=== PATIENT | male | born 1955 | race African-American/Black ===

== ENCOUNTER 2016-09-03 10:57 | Inpatient (IN) | payer OTHER ==
[2016-09-03 11:20] VITALS: BMI 28.1
--- NOTE | 2016-09-03 12:22 | HP ---
CIWA Score - CIWA Score Nausea/Vomitin Muscle Tremors: 3 Anxiety: 4-Mod. Anxious/Guarded Agitation: 2 Paroxysmal Sweats: 3 Orientation: 0-Oriented Tacttile Disturbances: 2-Mild Itch/Numbness/Burn Auditory Disturbances: 0-None Visual Disturbances: 0-None Headache: 0-None Present CIWA-Ar Total Score: 17 Admission ROS S - HPI Chief Complaint: "I am here to get cleaned up." Pt. is here to Detox from Alcohol and Cocaine. Allergies/Adverse Reactions: Allergies Allergy/AdvReac Type Severity Reaction Status Date / Time enalapril [Enalapril] Allergy Swelling Verified 09/03/16 11:36 haloperidol [From Haldol] Allergy Verified 09/03/16 11:38 haloperidol lactate Allergy Verified 09/03/16 11:38 [From Haldol] levofloxacin [From Levaquin] Allergy Hives Verified 09/03/16 11:38 ,Enalapril, Haldol, Levaquin Allergy Severe Hives Uncoded 05/04/15 16:39 History of Present Illness: Pt. is a 61 YO male here to Detox from Alcohol. Pt. has had several Detox and Rehab admissions at [facility] in the past. Longest Period of sobriety: approx. 2 years (1989- 1991); 15 months (2011 - 2012). Exam Limitations: No Limitations - Ebola screening Have you traveled outside of the country in the last 21 days: No Have you had contact with anyone from an Ebola affected area: No Have you been sick,other than usual withdrawal symptoms: No Do you have a fever: No - Review of Systems Constitutional: Diaphoresis, Loss of Appetite, Malaise, Changes in sleep, Unintentional Wgt. Loss (Lost approx. 15 lbs. over last 2 months.), Other ( Patient ambulates with assistance of a walker.) EENT: reports: No Symptoms Reported Respiratory: reports: No Symptoms reported Cardiac: reports: No Symptoms Reported GI: reports: Diarrhea, Nausea, Poor Appetite, Indigestion, Abdominal cramping : reports: No Symptoms Reported Musculoskeletal: reports: Back Pain (Lumbosacral area.), Neck Pain Integumentary: reports: No Symptoms Reported Neuro: reports: Tremors Endocrine: reports: No Symptoms Reported Hematology: reports: Anemia (Uncertain which type.) Psychiatric: reports: Judgement Intact, Mood/Affect Appropiate, Orientated x3, Anxious, Depressed Other Systems: Reviewed and Negative Patient History - Patient Medical History Hx Anemia: Yes (Uncertain about type.) Hx Asthma: No Hx Chronic Obstructive Pulmonary Disease (COPD): No Hx Cancer: No Hx Cardiac Disorders: No Hx Congestive Heart Failure: No Hx Hypertension: Yes (ON MEDS.) Hx Hypercholesterolemia: Yes (ON MEDS) Hx Pacemaker: No HX Cerebrovascular Accident: No Hx Seizures: No Hx Dementia: No Hx Diabetes: No Hx Gastrointestinal Disorders: No Hx Liver Disease: No Hx Genitourinary Disorders: No Hx Sexually Transmitted Disorders: No Hx Renal Disease (ESRD): No Hx Thyroid Disease: No Hx Human Immunodeficiency Virus (HIV): No (Last Tested: approx. 2 weeks ago: NEGATIVE.) Hx Hepatitis C: No (Last Tested: approx. 2 weeks ago: NEGATIVE.) Hx Depression: Yes (On med.) Hx Suicide Attempt: No (PATIENT DENIES CURRENT SI / HI.) Hx Bipolar Disorder: No Hx Schizophrenia: No Other Medical History: SPINAL STENOSIS: Diagnosed 03/2016. - Patient Surgical History Past Surgical History: Yes Hx Neurologic Surgery: No Hx Cataract Extraction: No Hx Cardiac Surgery: No Hx Lung Surgery: No Hx Breast Surgery: No Hx Breast Biopsy: No Hx Abdominal Surgery: No Hx Appendectomy: No Hx Cholecystectomy: No Hx Genitourinary Surgery: No Hx Section: No Hx Orthopedic Surgery: Yes (right hip replacement in 04/2003 at [facility] for avascular necrosis) Other Surgical History: Surgery to repair Right Fibula fracture: 1996. Anesthesia Reaction: No - PPD History Previous Implant?: No Documented Results: Positive w/o proof (Completed Full Course of Treatment: 2004.) Implanted On Prior [facility] Admission?: No PPD to be Administered?: No - Reproductive History Patient is a Female of Child Bearing Age (11 -55 yrs old): No (PATIENT IS MALE.) - Smoking Cessation Smoking history: Current every day smoker Have you smoked in the past 12 months: Yes Aproximately how many cigarettes per day: 5 Cigars Per Day: 0 Hx Chewing Tobacco Use: No Initiated information on smoking cessation: Yes 'Breaking Loose' booklet given: 09/03/16 (GIVEN ON UNIT.) - Substance & Tx. History Hx Alcohol Use: Yes Hx Substance Use: Yes Substance Use Type: Alcohol, Cocaine Hx Substance Use Treatment: Yes (Previous Detox and Rehab admissions at [facility].) - Substances Abused Alcohol Route: Oral Frequency: Daily Amount used: 1 pint /day Age of first use: 15 Date of Last Use: 08/31/16 Cocaine Route: sniff Frequency: 3-6 times per week Amount used: $50 Age of first use: 20 Date of Last Use: 08/31/16 Family Disease History - Family Disease History Family Disease History: Heart Disease: Father Admission Physical Exam [facility] - Vital Signs Vital Signs: Vital Signs - 24 hr 09/03/16 11:18 Temperature 96.9 F L Pulse Rate 73 Respiratory 20 Rate Blood Pressure 138/73 - Physical General Appearance: Yes: No Apparent Distress, Nourished, Appropriately Dressed , Tremorous, Anxious, Other (Patient ambulating with assistance of a walker.) HEENTM: Yes: Hearing grossly Normal, Normocephalic, Normal Voice, WILLY, Pharynx Normal Respiratory: Yes: Chest Non-Tender, Lungs Clear, No Respiratory Distress, No Accessory Muscle Use Neck: Yes: No masses,lesions,Nodules, Supple, Trachea in good position Breast: Yes: Breast Exam Deferred Cardiology: Yes: Regular Rhythm, Regular Rate, S1, S2 Abdominal: Yes: Normal Bowel Sounds, Non Tender, Soft, Protuberent Genitourinary: Yes: Within Normal Limits Back: Yes: Decreased Range of Motion, Vertebral Tenderness Musculoskeletal: Yes: Gait Steady (Walker used to assist with ambulation.), Back pain, Joint Stiffness Extremities: Yes: Tremors Neurological: Yes: Fully Oriented, Alert, Normal Mood/Affect, Normal Response Integumentary: Yes: Normal Color, Dry, Warm Lymphatic: Yes: Within Normal Limits - Diagnostic (1) Hypercholesteremia Current Visit: Yes Status: Chronic (2) Nicotine dependence Current Visit: Yes Status: Chronic Qualifiers: Nicotine product type: cigarettes Substance use status: uncomplicated Qualified Code(s): F17.210 - Nicotine dependence, cigarettes, uncomplicated (3) Hypertension Current Visit: Yes Status: Chronic Qualifiers: Hypertension type: essential hypertension Qualified Code(s): I10 - Essential (primary) hypertension (4) Alcohol dependence with uncomplicated withdrawal Current Visit: Yes Status: Acute (5) Cocaine dependence, uncomplicated Current Visit: Yes Status: Acute (6) Spinal stenosis, lumbosacral region Current Visit: Yes Status: Chronic (7) History of depression Current Visit: Yes Status: Chronic (8) Walker as ambulation aid Current Visit: Yes Status: Chronic Cleared for Admission [facility] - Detox or Rehab [facility] Level of Care: Medically Managed Detox Regimen/Protocol: Librium [facility] Breath Alcohol Content Breath Alcohol Content: 0 Urine Drug Screen - Results Drug Screen Negative: No Urine Drug Screen Results: JESUS ALBERTO-Cocaine
[2016-09-03] MEDS ORDERED: P-EPHED 60MG/TRIPROLIDI 2.5MG TABLET PO PRN (12:59)
[2016-09-03] MEDS ORDERED: MAG HYDROX/AL HYDROX/SIMETH 30 ML UNIT-DOSE CUP PO PRN (12:59)
[2016-09-03] MEDS ORDERED: IBUPROFEN 400 MG TABLET (FP) PO PRN (12:59)
[2016-09-03] MEDS ORDERED: MENTHOL/PHENOL 1 EACH UD MM PRN (12:59)
[2016-09-03] MEDS ORDERED: guaiFENesin/D-METHORPHAN HB 10 ML UNIT-DOSE CUPS PO PRN (12:59)
[2016-09-03] MEDS ORDERED: MAGNESIUM HYDROX 2400MG/30ML ORAL SUSPENSION 30 ML CUP PO PRN (12:59)
[2016-09-03] MEDS ORDERED: diphenhydrAMINE HCL 50 MG CAPSULE PO PRN (12:59)
[2016-09-03] MEDS ORDERED: chlordiazePOXIDE HCL 25 MG CAPSULE PO PRN (12:59)
[2016-09-03] MEDS ORDERED: hydrOXYzine PAMOATE 50 MG CAPSULE (FP) PO PRN (12:59)
[2016-09-03] MEDS ORDERED: ACETAMINOPHEN 325 MG TABLET (FP) PO PRN (12:59)
[2016-09-03] MEDS ORDERED: MAGNESIUM CITRATE 300 ML BOTTLE PO PRN (12:59)
[2016-09-03] MEDS ORDERED: chlordiazePOXIDE HCL 25 MG CAPSULE PO ONE (12:59)
[2016-09-03] MEDS: amLODIPine BESYLATE 10 MG TABLET (FP) PO SCH (13:45)
[2016-09-03] MEDS: CYCLOBENZAPRINE HCL 10 MG TABLET (FP) PO PRN (13:45)
[2016-09-03] MEDS: ASPIRIN COATED 81 MG TABLET.EC PO SCH (13:45)
[2016-09-03] MEDS: LIDOCAINE 5% TOPICAL PATCH TP SCH (14:15)
[2016-09-03] MEDS: ATENOLOL 25 MG TABLET (FP) PO SCH (14:17)
[2016-09-03] MEDS: NICOTINE POLACRILEX 2 MG GUM BUC PRN ×2 (15:00→19:21)
[2016-09-03] MEDS: chlordiazePOXIDE HCL 25 MG CAPSULE PO SCH ×2 (17:55→22:10)
[2016-09-03 19:09] LABS: URINE APPEARANCE CLEAR; URINE BILIRUBIN NEGATIVE (NEGATIVE); URINE BLOOD NEGATIVE (NEGATIVE); URINE COLOR YELLOW; URINE GLUCOSE (UA) NEGATIVE (NEGATIVE); URINE KETONE NEGATIVE (NEGATIVE); URINE LEUK ESTERASE NEGATIVE (NEGATIVE); URINE NITRITE NEGATIVE (NEGATIVE); URINE PROTEIN NEGATIVE (NEGATIVE)
[2016-09-03] MEDS: ATORVASTATIN CA 10 MG TABLET (FP) PO SCH (22:10)
[2016-09-03] MEDS: THIAMINE HCL 100 MG TABLET (FP) PO SCH (22:10)
[2016-09-03] MEDS: LIDOCAINE PATCH REMOVAL MC SCH (22:11)
[2016-09-04] MEDS: chlordiazePOXIDE HCL 25 MG CAPSULE PO SCH ×4 (06:02→22:08)
--- NOTE | 2016-09-04 08:20 | CONSULT ---
[facility] Psychiatric Consult - Data Date of interview: 09/04/16 Admission source: [facility] Identifying data: This is 61 years old male ambulating with walker, with psychiatric hospitalization history, history pf Schizoaffective disorder intoxicated with: Alcohol, Cocaine and Nicotine Substance Abuse History: - Smoking Cessation. Smoking history: Current every day smoker. Have you smoked in the past 12 months: Yes. Aproximately how many cigarettes per day: 5. Cigars Per Day: 0. Hx Chewing Tobacco Use: No. Initiated information on smoking cessation: Yes. 'Breaking Loose' booklet given : 09/03/16 (GIVEN ON UNIT.). - Substance & Tx. History. Hx Alcohol Use: Yes. Hx Substance Use: Yes. Substance Use Type: Alcohol, Cocaine. Hx Substance Use Treatment: Yes (Previous Detox and Rehab admissions at [facility] - Substances Abused. Alcohol. Route: Oral. Frequency: Daily. Amount used: 1 pint / day. Age of first use: 15. Date of Last Use: 08/31/16. Cocaine. Route: sniff. Frequency: 3-6 times per week. Amount used: $50. Age of first use: 20. Date of Last Use: 08/31/16 Medical History: Spinal; Stenosis, Hypercholesterolewmia, HTN, Arthritis, ambulating with walker Psychiatric History: Patient reports history of Schizoaffective disorder [facility] most recent psychiatric admission on 2 mon ths ago at [facility] for safety, reports currently taking: Wellbutrin 100mg poqd Physical/Sexual Abuse/Trauma History: Denies Additional Comment: Wellbutrin 100mg poqd Mental Status Exam - Mental Status Exam Alert and Oriented to: Person Cognitive Function: Fair Patient Appearance: Unkempt Mood: Apprehensive Affect: Mood Congruent Patient Behavior: Cooperative Speech Pattern: Delayed Voice Loudness: Mildly Soft/Quiet Thought Process: Circumstantial Thought Disorder: Being Controlled Hallucinations: Denies Suicidal Ideation: Denies Homicidal Ideation: Denies Insight/Judgement: Fair Sleep: Difficulty falling asleep Appetite: Fair Muscle strength/Tone: Mild Hypotonicity Gait/Station: Shuffling Additional Comments: Wellbutrin 100mg poqd Psychiatric Findings - Problem List ([place] 1, 2,3) (1) Alcohol dependence with uncomplicated withdrawal Current Visit: Yes Status: Acute (2) Cocaine dependence, uncomplicated Current Visit: Yes Status: Acute (3) Alcohol dependence Current Visit: No Status: Acute (4) Cocaine dependence Current Visit: No Status: Acute (5) Schizoaffective disorder Current Visit: No Status: Acute (6) Uncomplicated alcohol dependence Current Visit: No Status: Acute - Initial Treatment Plan Initial Treatment Plan: Wellbutrin 100mg poqd
[2016-09-04] MEDS: NICOTINE POLACRILEX 2 MG GUM BUC PRN ×3 (08:40→22:11)
--- NOTE | 2016-09-04 09:47 | PN ---
[facility] CIWA - CIWA Score Nausea/Vomitin Muscle Tremors: 3 Anxiety: 3 Agitation: 2 Paroxysmal Sweats: 1-Minimal Palms Moist Orientation: 0-Oriented Tacttile Disturbances: 1-Very Mild Itch/Numbness Auditory Disturbances: 1-Very Mild Visual Disturbances: 1-Very Mild Sensitivity Headache: 2-Mild CIWA-Ar Total Score: 17 [facility] Progress Note (SOAP) Subjective: ALERT,IRRITABLE,ANXIOUS,INTERRUPTED SLEEP,TREMOR,PAIN IN THE BODY Objective: 09/04/16 09:44 Vital Signs Temperature 97.3 F L 09/04/16 06:06 Pulse Rate 57 L 09/04/16 06:06 Respiratory Rate 20 09/04/16 06:06 Blood Pressure 128/70 09/04/16 06:06 O2 Sat by Pulse Oximetry (%) EKG SINUS BRADYCARDIA 53/MIN WITH ABERRANT CONTRACTION Laboratory Last Values Urine Color Yellow 09/03/16 17:00 Urine Appearance Clear 09/03/16 17:00 Urine pH 6.0 (5.0-8.0) 09/03/16 17:00 Ur Specific [place] 1.020 (1.005-1.025) 09/03/16 17:00 Urine Protein Negative (NEGATIVE) 09/03/16 17:00 Urine Glucose (UA) Negative (NEGATIVE) 09/03/16 17:00 Urine Ketones Negative (NEGATIVE) 09/03/16 17:00 Urine Blood Negative (NEGATIVE) 09/03/16 17:00 Urine Nitrite Negative (NEGATIVE) 09/03/16 17:00 Urine Bilirubin Negative (NEGATIVE) 09/03/16 17:00 Urine Urobilinogen 2.0 mg/dL (0.2-1.0) 09/03/16 17:00 Ur Leukocyte Esterase Negative (NEGATIVE) 09/03/16 17:00 LABS PENDING Assessment: 09/04/16 09:46 WITHDRAWAL SYMPTOM Plan: CONTINUE DETOX
[2016-09-04 09:53] LABS: MCH 33.6 pg (25.7-33.7); MCHC 33.9 g/dl (32.0-35.9); MEAN CELL VOLUME 99.2 fl (80-96); MEAN PLT VOLUME 8.9 fl (7.5-11.1); PLATELET COUNT 184 K/MM3 (134-434); RDW 16.2 % (11.9-15.9); WHITE BLOOD COUNT 3.7 K/mm3 (4.0-10.0)
[2016-09-04 10:12] LABS: ALK PHOS 66 U/L (45-117); ANION GAP 7 (8-16); BILIRUBIN,TOTAL 0.5 mg/dL (0.2-1.0); CALCIUM 8.9 mg/dL (8.5-10.1); CO2 29 mmol/L (21-32); CREATININE 1.3 mg/dL (0.7-1.3); GLUCOSE,RANDOM 104 mg/dL (74-106); SGOT/AST 9 U/L (15-37); SGPT/ALT 21 U/L (12-78); TOT PROT 6.2 g/dl (6.4-8.2)
[2016-09-04] MEDS: buPROPion HCL 100 MG TABLET PO SCH (10:22)
[2016-09-04] MEDS: LIDOCAINE 5% TOPICAL PATCH TP SCH (10:23)
[2016-09-04] MEDS: HYDROCHLOROTHIAZIDE 25 MG TABLET (FP) PO SCH (10:23)
[2016-09-04] MEDS: ASPIRIN COATED 81 MG TABLET.EC PO SCH (10:23)
[2016-09-04] MEDS: amLODIPine BESYLATE 10 MG TABLET (FP) PO SCH (10:23)
[2016-09-04] MEDS: PRENATAL VITAMINS W/ FOLIC ACID TABLET (FP) PO SCH (10:23)
[2016-09-04] MEDS: ATENOLOL 25 MG TABLET (FP) PO SCH (11:05)
--- NOTE | 2016-09-04 11:33 | EKG ---
Test Reason : Blood Pressure : / mmHG Vent. Rate : 053 BPM Atrial Rate : 053 BPM P-R Int : 150 ms QRS Dur : 080 ms QT Int : 472 ms P-R-T Axes : 051 -36 -21 degrees QTc Int : 442 ms SINUS BRADYCARDIA WITH PREMATURE ATRIAL COMPLEXES WITH ABERRANT CONDUCTION LEFT AXIS DEVIATION NONSPECIFIC ST ABNORMALITY ABNORMAL ECG WHEN COMPARED WITH ECG OF 10-AUG-2004 19:29, ABERRANT CONDUCTION IS NOW PRESENT ST NOW DEPRESSED IN INFERIOR LEADS ST NO LONGER ELEVATED IN ANTERIOR LEADS T WAVE INVERSION NOW EVIDENT IN INFERIOR LEADS Confirmed by CLARICE KIMBLE MD ([id number]) on 09/04/2016 11:33:16 AM Referred By: Confirmed By:CLARICE KIMBLE MD
[2016-09-04] MEDS: CYCLOBENZAPRINE HCL 10 MG TABLET (FP) PO PRN (19:02)
[2016-09-04] MEDS: ATORVASTATIN CA 10 MG TABLET (FP) PO SCH (22:08)
[2016-09-04] MEDS: LIDOCAINE PATCH REMOVAL MC SCH (22:08)
[2016-09-04] MEDS: THIAMINE HCL 100 MG TABLET (FP) PO SCH (22:08)
[2016-09-05] MEDS: LOPERAMIDE HCL 2 MG CAPSULE PO PRN ×2 (05:29→17:10)
[2016-09-05] MEDS: chlordiazePOXIDE HCL 25 MG CAPSULE PO SCH ×2 (05:30→10:05)
[2016-09-05] MEDS: NICOTINE POLACRILEX 2 MG GUM BUC PRN ×4 (07:52→22:28)
--- NOTE | 2016-09-05 09:38 | PN ---
S CIWA - CIWA Score Nausea/Vomitin Muscle Tremors: 3 Anxiety: 3 Agitation: 2 Paroxysmal Sweats: 1-Minimal Palms Moist Orientation: 0-Oriented Tacttile Disturbances: 1-Very Mild Itch/Numbness Auditory Disturbances: 1-Very Mild Visual Disturbances: 1-Very Mild Sensitivity Headache: 2-Mild CIWA-Ar Total Score: 17 S Progress Note (SOAP) Subjective: ALERT,IRRITABLE,ANXIOUS,INTERRUPTED SLEEP,TREMOR,DIARRHEA Objective: 09/05/16 09:37 Vital Signs Temperature 97.0 F L 09/05/16 09:24 Pulse Rate 71 09/05/16 09:24 Respiratory Rate 16 09/05/16 09:24 Blood Pressure 136/89 09/05/16 09:24 O2 Sat by Pulse Oximetry (%) Laboratory Last Values WBC 3.7 K/mm3 (4.0-10.0) L 09/04/16 06:30 RBC 3.72 M/mm3 (4.00-5.60) L 09/04/16 06:30 Hgb 12.5 GM/dL (11.7-16.9) D 09/04/16 06:30 Hct 36.9 % (35.4-49) 09/04/16 06:30 MCV 99.2 fl (80-96) H 09/04/16 06:30 MCH 33.6 pg (25.7-33.7) 09/04/16 06:30 MCHC 33.9 g/dl (32.0-35.9) 09/04/16 06:30 RDW 16.2 % (11.9-15.9) H D 09/04/16 06:30 Plt Count 184 K/MM3 (134-434) 09/04/16 06:30 MPV 8.9 fl (7.5-11.1) 09/04/16 06:30 Sodium 143 mmol/L (136-145) 09/04/16 06:30 Potassium 4.0 mmol/L (3.5-5.1) 09/04/16 06:30 Chloride 107 mmol/L (98-107) 09/04/16 06:30 Carbon Dioxide 29 mmol/L (21-32) 09/04/16 06:30 Anion Gap 7 (8-16) L 09/04/16 06:30 BUN 13 mg/dL (7-18) 09/04/16 06:30 Creatinine 1.3 mg/dL (0.7-1.3) 09/04/16 06:30 Creat Clearance w eGFR 56.50 (>60) 09/04/16 06:30 Random Glucose 104 mg/dL (74-106) 09/04/16 06:30 Calcium 8.9 mg/dL (8.5-10.1) 09/04/16 06:30 Total Bilirubin 0.5 mg/dL (0.2-1.0) 09/04/16 06:30 AST 9 U/L (15-37) L D 09/04/16 06:30 ALT 21 U/L (12-78) D 09/04/16 06:30 Alkaline Phosphatase 66 U/L (45-117) D 09/04/16 06:30 Total Protein 6.2 g/dl (6.4-8.2) L D 09/04/16 06:30 Albumin 3.0 g/dl (3.4-5.0) L D 09/04/16 06:30 Urine Color Yellow 09/03/16 17:00 Urine Appearance Clear 09/03/16 17:00 Urine pH 6.0 (5.0-8.0) 09/03/16 17:00 Ur Specific [place] 1.020 (1.005-1.025) 09/03/16 17:00 Urine Protein Negative (NEGATIVE) 09/03/16 17:00 Urine Glucose (UA) Negative (NEGATIVE) 09/03/16 17:00 Urine Ketones Negative (NEGATIVE) 09/03/16 17:00 Urine Blood Negative (NEGATIVE) 09/03/16 17:00 Urine Nitrite Negative (NEGATIVE) 09/03/16 17:00 Urine Bilirubin Negative (NEGATIVE) 09/03/16 17:00 Urine Urobilinogen 2.0 mg/dL (0.2-1.0) 09/03/16 17:00 Ur Leukocyte Esterase Negative (NEGATIVE) 09/03/16 17:00 RPR Titer Nonreactive (NONREACTIVE) 09/04/16 06:30 Assessment: 09/05/16 09:38 WITHDRAWAL SYMPTOM Plan: CONTINUE DETOX
[2016-09-05] MEDS: LIDOCAINE 5% TOPICAL PATCH TP SCH (10:05)
[2016-09-05] MEDS: PRENATAL VITAMINS W/ FOLIC ACID TABLET (FP) PO SCH (10:06)
[2016-09-05] MEDS: amLODIPine BESYLATE 10 MG TABLET (FP) PO SCH (10:06)
[2016-09-05] MEDS: ATENOLOL 25 MG TABLET (FP) PO SCH (10:06)
[2016-09-05] MEDS: ASPIRIN COATED 81 MG TABLET.EC PO SCH (10:06)
[2016-09-05] MEDS: buPROPion HCL 100 MG TABLET PO SCH (10:06)
[2016-09-05] MEDS: HYDROCHLOROTHIAZIDE 25 MG TABLET (FP) PO SCH (10:06)
[2016-09-05] MEDS: chlordiazePOXIDE 5 MG CAPSULE PO SCH ×2 (17:08→22:06)
[2016-09-05] MEDS: ATORVASTATIN CA 10 MG TABLET (FP) PO SCH (22:06)
[2016-09-05] MEDS: THIAMINE HCL 100 MG TABLET (FP) PO SCH (22:06)
[2016-09-05] MEDS: LIDOCAINE PATCH REMOVAL MC SCH (22:07)
[2016-09-06] MEDS: chlordiazePOXIDE 5 MG CAPSULE PO SCH ×2 (05:11→10:11)
--- NOTE | 2016-09-06 09:52 | PN ---
S Progress Note (SOAP) Subjective: ALERT,LOOSE BOWEL MOVEMENT,AMBULATION WITH WALKER Objective: 09/06/16 09:50 Vital Signs Temperature 98.1 F 09/06/16 09:28 Pulse Rate 74 09/06/16 09:28 Respiratory Rate 18 09/06/16 09:28 Blood Pressure 142/84 09/06/16 09:28 O2 Sat by Pulse Oximetry (%) STABLE FOR DISCHARGE TO REHAB Assessment: 09/06/16 09:51 NO WITHDRAWAL SYMPTOM Plan: DISCHARGE TODAY TO REHAB
--- NOTE | 2016-09-06 09:55 | DS ---
[facility] Detox Discharge Summary Admission Date: 09/03/16 Discharge Date: 09/06/16 - History Present History: Alcohol Dependence, Cocaine Dependence Additional Comments: FOLLOW UP WITH [facility] Pertinent Past History: HYPERTENSION HYPERCJOLESTEROLEMIA NICOTINE DEPENDENCE SPINAL STHENOSIS WALKER AMBULATORY AID DEPRESSION - Physical Exam Results Vital Signs: Vital Signs Temperature 98.1 F 09/06/16 09:28 Pulse Rate 74 09/06/16 09:28 Respiratory Rate 18 09/06/16 09:28 Blood Pressure 142/84 09/06/16 09:28 O2 Sat by Pulse Oximetry (%) - Treatment Hospital Course: Detox Protocol Followed, Detoxed Safely, Responded well, Discharged Condition Good, Rehab Referral Accepted Patient has Accepted a Rehab Referral to: [facility] - Medication Discharge Medications: Ambulatory Orders Amlodipine Besylate [Norvasc -] 10 mg PO DAILY 03/15/11 Aspirin [Aspirin EC] 81 mg PO DAILY 03/15/11 Hydrochlorothiazide [Hydrodiuril] 25 mg PO DAILY 03/15/11 Simvastatin [Zocor] 20 mg PO HS 03/15/11 Atenolol [Tenormin -] 25 mg PO DAILY 09/03/16 Bupropion HCl [Wellbutrin -] 100 mg PO DAILY 09/03/16 Bupropion HCl [Wellbutrin -] 100 mg PO DAILY #30 tablet 09/04/16 - AMA Did Patient Leave Against Medical Advice: No
[2016-09-06] MEDS: HYDROCHLOROTHIAZIDE 25 MG TABLET (FP) PO SCH (10:11)
[2016-09-06] MEDS: buPROPion HCL 100 MG TABLET PO SCH (10:11)
[2016-09-06] MEDS: ATENOLOL 25 MG TABLET (FP) PO SCH (10:11)
[2016-09-06] MEDS: PRENATAL VITAMINS W/ FOLIC ACID TABLET (FP) PO SCH (10:11)
[2016-09-06] MEDS: ASPIRIN COATED 81 MG TABLET.EC PO SCH (10:11)
[2016-09-06] MEDS: amLODIPine BESYLATE 10 MG TABLET (FP) PO SCH (10:11)
[2016-09-06] MEDS: LIDOCAINE 5% TOPICAL PATCH TP SCH (10:12)
[2016-09-06] MEDS: NICOTINE POLACRILEX 2 MG GUM BUC PRN ×3 (10:13→22:18)
[2016-09-06] MEDS: LOPERAMIDE HCL 2 MG CAPSULE PO PRN (14:47)
[2016-09-06] MEDS: chlordiazePOXIDE HCL 10 MG CAPSULE PO SCH ×2 (18:36→22:15)
--- NOTE | 2016-09-06 21:26 | PN ---
[facility] Progress Note Note: patient changed his mind not to go to rehab,will continue detox,discharge in am
[2016-09-06] MEDS: ATORVASTATIN CA 10 MG TABLET (FP) PO SCH (22:15)
[2016-09-06] MEDS: LIDOCAINE PATCH REMOVAL MC SCH (22:16)
[2016-09-06] MEDS: THIAMINE HCL 100 MG TABLET (FP) PO SCH (22:18)
[2016-09-07] MEDS: chlordiazePOXIDE HCL 10 MG CAPSULE PO SCH (05:16)
--- NOTE | 2016-09-07 08:14 | PN ---
S Progress Note (SOAP) Subjective: ALERT,NO COMPLAINING Objective: 09/07/16 08:12 Vital Signs Temperature 97.7 F 09/07/16 06:50 Pulse Rate 61 09/07/16 06:50 Respiratory Rate 18 09/07/16 06:50 Blood Pressure 110/60 09/07/16 06:50 O2 Sat by Pulse Oximetry (%) Assessment: 09/07/16 08:12 DETOX COMPLETED,NO WITHDRAWAL SYMPTOM Plan: DISCHARGE TODAY,FOLLOW UP WITH AFTER CARE PROGRAM ARRANGEMENT
--- NOTE | 2016-09-07 08:18 | DS ---
[facility] Detox Discharge Summary Admission Date: 09/03/16 Discharge Date: 09/07/16 - History Present History: Alcohol Dependence, Cocaine Dependence Additional Comments: FOLLOW UP WITH AFTER [facility] PROGRAM ARRANGEMENT [facility] Pertinent Past History: HYPERTENSION HYPERCHOLESTEROLEMIA NICOTINE DEPENDENCE SPINAL STHENOSIS WALKER AMBULATORY AIDS DEPRESSION - Physical Exam Results Vital Signs: Vital Signs Temperature 97.7 F 09/07/16 06:50 Pulse Rate 61 09/07/16 06:50 Respiratory Rate 18 09/07/16 06:50 Blood Pressure 110/60 09/07/16 06:50 O2 Sat by Pulse Oximetry (%) Pertinent Admission Physical Exam Findings: WITHDRAWAL SYMPTOM - Treatment Hospital Course: Detox Protocol Followed, Detoxed Safely, Responded well, Discharged Condition Good, Rehab Referral Accepted Patient has Accepted a Rehab Referral to: [facility] - Medication Discharge Medications: Ambulatory Orders Amlodipine Besylate [Norvasc -] 10 mg PO DAILY 03/15/11 Aspirin [Aspirin EC] 81 mg PO DAILY 03/15/11 Hydrochlorothiazide [Hydrodiuril] 25 mg PO DAILY 03/15/11 Simvastatin [Zocor] 20 mg PO HS 03/15/11 Atenolol [Tenormin -] 25 mg PO DAILY 09/03/16 Bupropion HCl [Wellbutrin -] 100 mg PO DAILY 09/03/16 Bupropion HCl [Wellbutrin -] 100 mg PO DAILY #30 tablet 09/04/16 - Diagnosis (1) Alcohol dependence with uncomplicated withdrawal Current Visit: Yes Status: Acute (2) Cocaine dependence, uncomplicated Current Visit: Yes Status: Acute (3) History of depression Current Visit: Yes Status: Chronic (4) Hypercholesteremia Current Visit: Yes Status: Chronic (5) Hypertension Current Visit: Yes Status: Chronic Qualifiers: Hypertension type: essential hypertension Qualified Code(s): I10 - Essential (primary) hypertension (6) Nicotine dependence Current Visit: Yes Status: Chronic Qualifiers: Nicotine product type: cigarettes Substance use status: uncomplicated Qualified Code(s): F17.210 - Nicotine dependence, cigarettes, uncomplicated (7) Spinal stenosis, lumbosacral region Current Visit: Yes Status: Chronic (8) Walker as ambulation aid Current Visit: Yes Status: Chronic (9) Arthritis Current Visit: No Status: Chronic - AMA Did Patient Leave Against Medical Advice: No
[2016-09-07] MEDS: ASPIRIN COATED 81 MG TABLET.EC PO SCH (09:32)
[2016-09-07] MEDS: amLODIPine BESYLATE 10 MG TABLET (FP) PO SCH (09:32)
[2016-09-07] MEDS: PRENATAL VITAMINS W/ FOLIC ACID TABLET (FP) PO SCH (09:32)
[2016-09-07] MEDS: buPROPion HCL 100 MG TABLET PO SCH (09:32)
[2016-09-07] MEDS: ATENOLOL 25 MG TABLET (FP) PO SCH (09:32)
[2016-09-07] MEDS: HYDROCHLOROTHIAZIDE 25 MG TABLET (FP) PO SCH (09:34)
[2016-09-07] MEDS: LIDOCAINE 5% TOPICAL PATCH TP SCH (09:34)
[2016-09-07] MEDS: NICOTINE POLACRILEX 2 MG GUM BUC PRN (09:39)
[2016-09-07 10:37] VITALS: BP 134/70; PULSE 69; TEMP 98.2
== END 2016-09-07 09:48 | disposition home or self-care (01) | DRG 774 ==
LOC: YASAS 10:57 → Y6N 11:50
PROVIDERS: ADMIT Internal Medicine; ATTEND Internal Medicine
PROC: HZ2ZZZZ Detoxification Services for Substance Abuse Treatment (ICD-10-PCS; principal; 2016-09-03)
DX: F10.230 Alcohol dependence with withdrawal, uncomplicated (principal); F14.20 Cocaine dependence, uncomplicated; F17.210 Nicotine dependence, cigarettes, uncomplicated; F25.9 Schizoaffective disorder, unspecified; F32.9 Major depressive disorder, single episode, unspecified; E78.00 Pure hypercholesterolemia, unspecified; I10 Essential (primary) hypertension; R00.1 Bradycardia, unspecified; M48.07 Spinal stenosis, lumbosacral region; M19.90 Unspecified osteoarthritis, unspecified site; R26.2 Difficulty in walking, not elsewhere classified; Z99.89 Dependence on other enabling machines and devices; Z79.82 Long term (current) use of aspirin; Z86.2 Personal history of diseases of the blood and blood-forming organs and certain disorders involving the immune mechanism; Z88.1 Allergy status to other antibiotic agents; Z88.8 Allergy status to other drugs, medicaments and biological substances; Z96.641 Presence of right artificial hip joint
CPT/HCPCS: 36415; 71020-TC; 80053; 81003; 85027; 86593; 93005; 93010

== ENCOUNTER 2016-09-07 17:50 | Inpatient (IN) | payer OTHER ==
[2016-09-07 18:19] VITALS: BMI 27.9
--- NOTE | 2016-09-07 21:03 | HP ---
Admission [facility] Chief Complaint: Detox services Allergies/Adverse Reactions: Allergies Allergy/AdvReac Type Severity Reaction Status Date / Time enalapril [Enalapril] Allergy Swelling Verified 09/07/16 18:47 haloperidol [From Haldol] Allergy Verified 09/07/16 18:47 haloperidol lactate Allergy Verified 09/07/16 18:47 [From Haldol] levofloxacin [From Levaquin] Allergy Hives Verified 09/07/16 18:47 ,Enalapril, Haldol, Levaquin Allergy Severe Hives Uncoded 09/07/16 18:47 History of Present Illness: 61 y.o. man with a history of drug and alcohol dependence is here seeking rehab services. He completed detox here today. He reports having a 2 year history of sobriety. Exam Limitations: Physical Impairment (Unsteady gait. Ambulates with the use of a rollator.) - Ebola screening Have you traveled outside of the country in the last 21 days: No Have you had contact with anyone from an Ebola affected area: No Do you have a fever: No - Review of Systems Constitutional: Loss of Appetite, Unintentional Wgt. Loss EENT: reports: No Symptoms Reported Respiratory: reports: No Symptoms reported Cardiac: reports: No Symptoms Reported GI: reports: Diarrhea, Abdominal cramping : reports: No Symptoms Reported Musculoskeletal: reports: Back Pain, Neck Pain Integumentary: reports: No Symptoms Reported Neuro: reports: Numbness (To left LE) Endocrine: reports: No Symptoms Reported Hematology: reports: Anemia (ANDREA) Psychiatric: reports: Judgement Intact, Mood/Affect Appropiate, Orientated x3, Anxious, Depressed Other Systems: Reviewed and Negative Patient History - Patient Medical History Hx Anemia: Yes Hx Asthma: No Hx Chronic Obstructive Pulmonary Disease (COPD): No Hx Cancer: No Hx Cardiac Disorders: No Hx Congestive Heart Failure: No Hx Hypertension: Yes (ON MEDS.) Hx Hypercholesterolemia: Yes (ON MEDS) Hx Pacemaker: No HX Cerebrovascular Accident: No Hx Seizures: No Hx Dementia: No Hx Diabetes: No Hx Gastrointestinal Disorders: No Hx Liver Disease: No Hx Genitourinary Disorders: No Hx Sexually Transmitted Disorders: No Hx Renal Disease (ESRD): No Hx Thyroid Disease: No Hx Human Immunodeficiency Virus (HIV): No (Last Tested: approx. 2 weeks ago: NEGATIVE.) Hx Hepatitis C: No (Last Tested: approx. 2 weeks ago: NEGATIVE.) Hx Depression: Yes (On med.) Hx Suicide Attempt: No (PATIENT DENIES CURRENT SI / HI.) Hx Bipolar Disorder: No Hx Schizophrenia: No - Patient Surgical History Past Surgical History: Yes Hx Neurologic Surgery: No Hx Cataract Extraction: No Hx Cardiac Surgery: No Hx Lung Surgery: No Hx Breast Surgery: No Hx Breast Biopsy: No Hx Abdominal Surgery: No Hx Appendectomy: No Hx Cholecystectomy: No Hx Genitourinary Surgery: No Hx Section: No Hx Orthopedic Surgery: Yes (right hip replacement in 04/2003 at [facility] for avascular necrosis) Other Surgical History: Surgery to repair Right Fibula fracture: 1996. Anesthesia Reaction: No - PPD History Previous Implant?: Yes Documented Results: Positive w/o proof PPD to be Administered?: No - Reproductive History Patient is a Female of Child Bearing Age (11 -55 yrs old): No - Smoking Cessation Smoking history: Current every day smoker Have you smoked in the past 12 months: Yes Aproximately how many cigarettes per day: 5 Cigars Per Day: 0 Hx Chewing Tobacco Use: No Initiated information on smoking cessation: Yes 'Breaking Loose' booklet given: 09/07/16 - Substance & Tx. History Hx Alcohol Use: Yes Hx Substance Use: Yes Substance Use Type: Alcohol, Cocaine Hx Substance Use Treatment: Yes ( Detox completed here on 09/07/16; rehab 04/2015) - Substances Abused Alcohol Route: Oral Frequency: 3-6 times per week Amount used: 1 pint liquor Age of first use: 15 Date of Last Use: 08/31/16 Cocaine Route: Smoking Frequency: 1-2 times per week Amount used: $50 Age of first use: 20 Date of Last Use: 08/31/16 Family Disease History - Family Disease History Family Disease History: Heart Disease: Father Admission Physical Exam [facility] - Vital Signs Vital Signs: Vital Signs - 24 hr 09/07/16 18:15 Temperature 98.7 F Pulse Rate 70 Respiratory 16 Rate Blood Pressure 150/90 - Physical General Appearance: Yes: No Apparent Distress, Nourished, Appropriately Dressed HEENTM: Yes: Hearing grossly Normal, Normal ENT Inspection, Normocephalic Respiratory: Yes: Chest Non-Tender, Lungs Clear, Normal Breath Sounds, No Respiratory Distress, No Accessory Muscle Use Neck: Yes: No masses,lesions,Nodules, Trachea in good position Breast: Yes: Breast Exam Deferred Cardiology: Yes: Regular Rhythm, Regular Rate Abdominal: Yes: Non Tender, Flat Genitourinary: Yes: Other (No complaints reported) Back: Yes: Normal Inspection Musculoskeletal: Yes: Back pain, Other (Unsteady gait; ambulates with the use of a walker) Extremities: Yes: Normal Capillary Refill, Normal Inspection, Normal Range of Motion Neurological: Yes: jewelry polisher II-XII NML intact, Fully Oriented, Alert, Normal Response Integumentary: Yes: Normal Color, Dry, Warm Lymphatic: Yes: Within Normal Limits - Diagnostic (1) Alcohol dependence with uncomplicated withdrawal Current Visit: Yes Status: Chronic (2) Cocaine dependence Current Visit: Yes Status: Chronic (3) Arthritis Current Visit: No Status: Chronic (4) Hypertension Current Visit: Yes Status: Chronic Qualifiers: Hypertension type: essential hypertension Qualified Code(s): I10 - Essential (primary) hypertension (5) Nicotine dependence Current Visit: Yes Status: Chronic Qualifiers: Nicotine product type: cigarettes Substance use status: uncomplicated Qualified Code(s): F17.210 - Nicotine dependence, cigarettes, uncomplicated (6) Spinal stenosis, lumbosacral region Current Visit: Yes Status: Chronic (7) Walker as ambulation aid Current Visit: Yes Status: Chronic Cleared for Admission [facility] - Detox or Rehab [facility] Level of Care: Observation Bed Claeared for Rehab Admission: Yes [facility] Breath Alcohol Content Breath Alcohol Content: 0 Urine Drug Screen - Results Drug Screen Negative: No Urine Drug Screen Results: BZO-Benzodiazepines, TCA-Tricyclic Antidepress
[2016-09-07] MEDS ORDERED: MAG HYDROX/AL HYDROX/SIMETH 30 ML UNIT-DOSE CUP PO PRN (21:06)
[2016-09-07] MEDS ORDERED: MAGNESIUM HYDROX 2400MG/30ML ORAL SUSPENSION 30 ML CUP PO PRN (21:06)
[2016-09-07] MEDS ORDERED: MENTHOL/PHENOL 1 EACH UD MM PRN (21:06)
[2016-09-07] MEDS ORDERED: P-EPHED 60MG/TRIPROLIDI 2.5MG TABLET PO PRN (21:06)
[2016-09-07] MEDS ORDERED: ACETAMINOPHEN 325 MG TABLET (FP) PO PRN (21:06)
[2016-09-07] MEDS ORDERED: guaiFENesin/D-METHORPHAN HB 10 ML UNIT-DOSE CUPS PO PRN (21:06)
[2016-09-07] MEDS ORDERED: MAGNESIUM CITRATE 300 ML BOTTLE PO PRN (21:06)
[2016-09-07] MEDS ORDERED: hydrOXYzine PAMOATE 50 MG CAPSULE (FP) PO PRN (21:06)
[2016-09-07] MEDS ORDERED: LOPERAMIDE HCL 2 MG CAPSULE PO PRN (21:06)
[2016-09-07] MEDS ORDERED: diphenhydrAMINE HCL 50 MG CAPSULE PO PRN (21:06)
[2016-09-07] MEDS: IBUPROFEN 600 MG TABLET (FP) PO PRN (21:41)
[2016-09-07] MEDS: THIAMINE HCL 100 MG TABLET (FP) PO SCH (21:41)
[2016-09-07] MEDS: NICOTINE POLACRILEX 2 MG GUM BC PRN (21:44)
[2016-09-07 23:03] LABS: URINE APPEARANCE CLEAR; URINE BILIRUBIN NEGATIVE (NEGATIVE); URINE BLOOD NEGATIVE (NEGATIVE); URINE COLOR LTYELLOW; URINE GLUCOSE (UA) NEGATIVE (NEGATIVE); URINE KETONE NEGATIVE (NEGATIVE); URINE LEUK ESTERASE NEGATIVE (NEGATIVE); URINE NITRITE NEGATIVE (NEGATIVE); URINE PROTEIN NEGATIVE (NEGATIVE); URINE UROBILINOGEN NEGATIVE mg/dL (0.2-1.0)
[2016-09-07] MEDS: LIDOCAINE PATCH REMOVAL MC SCH (23:41)
--- NOTE | 2016-09-08 06:30 | HP ---
Psychiatrist Admission - Data Date of interview: 09/08/16 Admission source: 6N Identifying data: This is the second [facility] admission for this 61 years old single Black male, unemployed on public assistance, domiciled Medical History: Significant for hypertension, hypercholesterolemia and arthritis at L3-L4 level. Noted history of angina and right hip replacement for avascular necrosis (2004). Patient reported allergies to haloperidol,enalapril and levofloxacin. smokes 5 cigarettes daily Psychiatric History: Reports that his first psychiatric contact was in 2003 when he was admited to [facility] in [place] because of mood dysregulation, thought disorder, auditory hallucinations and degradation of general functioning. Reports that he was duadnosed with Shizoaffective Disorder and treated with psychotropic medication. Reports more than 10 subsequent admissions to [facility], [facility], [facility] and [facility] in [place]. Most recent admission was 2 months ago to [facility]. Claims that he was discharged on Wellbutin 100 mg po daily. Reports receiving OPD care at the [facility] in the [place]. He saw Dr Carmichael on 09/04/16 while in detox and was continued on Wellbutrin 100 mg po meagan. At present, reports feeling depressed. 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 He served in [facility] and [employer] in the . Honorably discharged (self-report). Vital Signs: Vital Signs - 24 hr 09/07/16 09/08/16 18:15 03:30 Temperature 98.7 F Pulse Rate 70 Respiratory 16 18 Rate Blood Pressure 150/90 Allergies/Adverse Reactions: Allergies Allergy/AdvReac Type Severity Reaction Status Date / Time enalapril [Enalapril] Allergy Swelling Verified 09/07/16 18:47 haloperidol [From Haldol] Allergy Verified 09/07/16 18:47 haloperidol lactate Allergy Verified 09/07/16 18:47 [From Haldol] levofloxacin [From Levaquin] Allergy Hives Verified 09/07/16 18:47 ,Enalapril, Haldol, Levaquin Allergy Severe Hives Uncoded 09/07/16 18:47 Date of last physical exam: 09/03/16 Concur with the findings of this exam: Yes - Substance Abuse/Tx History Hx Alcohol Use: Yes Hx Substance Use: Yes Substance Use Type: Alcohol (Started drinking alcohol at age 15, consumes one pint of liquor daily. Last drink on 08/31/16), Cocaine (Started using cocaine at age 20, consumes $50 worth 3-6 times weekly. Last used on 08/31/16) Hx Substance Use Treatment: Yes (2 previous inpt detox & one inpt rehab @ [facility]) - Admission Criteria Previous failed treatment: No Poor recovery environment: Yes Comorbidities: Yes Lacks judgement: Yes Mental Status Exam - Mental Status Exam Alert and Oriented to: Time, Place, Person Cognitive Function: Fair Patient Appearance: Well Groomed Mood: Depressed Affect: Appropriate Patient Behavior: Cooperative Speech Pattern: Clear Voice Loudness: Normal Thought Process: Intact, Goal Oriented Thought Disorder: Not Present Hallucinations: Denies Suicidal Ideation: Denies Homicidal Ideation: Denies Insight/Judgement: Fair Sleep: Fair Appetite: Poor Muscle strength/Tone: Normal Gait/Station: Normal Psychiatric Findings - Problem List ([place] 1, 2,3) (1) Alcohol dependence Current Visit: No Status: Acute (2) Cocaine dependence Current Visit: Yes Status: Chronic (3) Nicotine dependence Current Visit: Yes Status: Chronic Qualifiers: Nicotine product type: cigarettes Substance use status: uncomplicated Qualified Code(s): F17.210 - Nicotine dependence, cigarettes, uncomplicated (4) Schizoaffective disorder Current Visit: No Status: Acute (5) Hypertension Current Visit: Yes Status: Chronic Qualifiers: Hypertension type: essential hypertension Qualified Code(s): I10 - Essential (primary) hypertension (6) Hypercholesteremia Current Visit: No Status: Chronic (7) Arthritis Current Visit: No Status: Chronic (8) Spinal stenosis, lumbosacral region Current Visit: Yes Status: Chronic - Initial Treatment Plan Initial Treatment Plan: 1) Continue Wellbutrin 100 mg po daily. 2) Monitor progress
[2016-09-08] MEDS: NICOTINE POLACRILEX 2 MG GUM BC PRN ×5 (08:05→17:57)
[2016-09-08] MEDS: PRENATAL VITAMINS W/ FOLIC ACID TABLET (FP) PO SCH (09:44)
[2016-09-08] MEDS: ASPIRIN COATED 81 MG TABLET.EC PO SCH (09:44)
[2016-09-08] MEDS: amLODIPine BESYLATE 10 MG TABLET (FP) PO SCH (09:44)
[2016-09-08] MEDS: HYDROCHLOROTHIAZIDE 25 MG TABLET (FP) PO SCH (09:45)
[2016-09-08] MEDS: LIDOCAINE 5% TOPICAL PATCH TP SCH (09:45)
[2016-09-08] MEDS: ATENOLOL 25 MG TABLET (FP) PO SCH (10:42)
[2016-09-08] MEDS: buPROPion HCL 100 MG TABLET PO SCH (12:41)
--- NOTE | 2016-09-08 13:31 | PN ---
[facility] Progress Note Note: diarrhea with abdominal pain,abdomen soft,no distension,no pain,bowel sound active rx jagruti diet,stool for c diff,close monitoring
[2016-09-08] MEDS: LIDOCAINE PATCH REMOVAL MC SCH (21:35)
[2016-09-08] MEDS: THIAMINE HCL 100 MG TABLET (FP) PO SCH (21:35)
[2016-09-09] MEDS: NICOTINE POLACRILEX 2 MG GUM BC PRN ×3 (06:59→14:56)
[2016-09-09] MEDS: buPROPion HCL 100 MG TABLET PO SCH (10:10)
[2016-09-09] MEDS: amLODIPine BESYLATE 10 MG TABLET (FP) PO SCH (10:10)
[2016-09-09] MEDS: ATENOLOL 25 MG TABLET (FP) PO SCH (10:10)
[2016-09-09] MEDS: PRENATAL VITAMINS W/ FOLIC ACID TABLET (FP) PO SCH (10:10)
[2016-09-09] MEDS: ASPIRIN COATED 81 MG TABLET.EC PO SCH (10:10)
[2016-09-09] MEDS: LIDOCAINE 5% TOPICAL PATCH TP SCH (10:10)
[2016-09-09] MEDS: HYDROCHLOROTHIAZIDE 25 MG TABLET (FP) PO SCH (10:10)
[2016-09-09] MEDS: THIAMINE HCL 100 MG TABLET (FP) PO SCH (21:44)
[2016-09-09] MEDS: LIDOCAINE PATCH REMOVAL MC SCH (21:49)
[2016-09-10] MEDS: IBUPROFEN 600 MG TABLET (FP) PO PRN (03:58)
[2016-09-10] MEDS: NICOTINE POLACRILEX 2 MG GUM BC PRN ×4 (05:48→21:39)
[2016-09-10] MEDS: amLODIPine BESYLATE 10 MG TABLET (FP) PO SCH (09:55)
[2016-09-10] MEDS: buPROPion HCL 100 MG TABLET PO SCH (09:55)
[2016-09-10] MEDS: PRENATAL VITAMINS W/ FOLIC ACID TABLET (FP) PO SCH (09:55)
[2016-09-10] MEDS: ATENOLOL 25 MG TABLET (FP) PO SCH (09:55)
[2016-09-10] MEDS: ASPIRIN COATED 81 MG TABLET.EC PO SCH (09:55)
[2016-09-10] MEDS: HYDROCHLOROTHIAZIDE 25 MG TABLET (FP) PO SCH (09:56)
[2016-09-10] MEDS: LIDOCAINE 5% TOPICAL PATCH TP SCH (09:56)
[2016-09-10] MEDS ORDERED: IBUPROFEN 400 MG TABLET (FP) PO PRN (11:32)
[2016-09-10] MEDS: CYCLOBENZAPRINE HCL 10 MG TABLET (FP) PO SCH ×2 (14:37→21:37)
[2016-09-10] MEDS: THIAMINE HCL 100 MG TABLET (FP) PO SCH (21:37)
[2016-09-10] MEDS: LIDOCAINE PATCH REMOVAL MC SCH (22:01)
[2016-09-11] MEDS: CYCLOBENZAPRINE HCL 10 MG TABLET (FP) PO SCH ×3 (06:45→21:12)
[2016-09-11] MEDS ORDERED: PT OWN MED DRAWER 7, Y5N ONE (08:53)
[2016-09-11] MEDS: PRENATAL VITAMINS W/ FOLIC ACID TABLET (FP) PO SCH (10:01)
[2016-09-11] MEDS: ASPIRIN COATED 81 MG TABLET.EC PO SCH (10:01)
[2016-09-11] MEDS: buPROPion HCL 100 MG TABLET PO SCH (10:02)
[2016-09-11] MEDS: amLODIPine BESYLATE 10 MG TABLET (FP) PO SCH (10:02)
[2016-09-11] MEDS: HYDROCHLOROTHIAZIDE 25 MG TABLET (FP) PO SCH (10:02)
[2016-09-11] MEDS: LIDOCAINE 5% TOPICAL PATCH TP SCH (10:02)
[2016-09-11] MEDS: ATENOLOL 25 MG TABLET (FP) PO SCH (10:02)
[2016-09-11] MEDS: NICOTINE POLACRILEX 2 MG GUM BC PRN ×4 (10:04→21:13)
[2016-09-11] MEDS: THIAMINE HCL 100 MG TABLET (FP) PO SCH (21:12)
[2016-09-11] MEDS: LIDOCAINE PATCH REMOVAL MC SCH (21:14)
[2016-09-12] MEDS: CYCLOBENZAPRINE HCL 10 MG TABLET (FP) PO SCH ×3 (06:03→21:39)
[2016-09-12] MEDS: NICOTINE POLACRILEX 2 MG GUM BC PRN ×5 (06:04→21:02)
[2016-09-12] MEDS: PRENATAL VITAMINS W/ FOLIC ACID TABLET (FP) PO SCH (10:17)
[2016-09-12] MEDS: amLODIPine BESYLATE 10 MG TABLET (FP) PO SCH (10:18)
[2016-09-12] MEDS: ASPIRIN COATED 81 MG TABLET.EC PO SCH (10:18)
[2016-09-12] MEDS: buPROPion HCL 100 MG TABLET PO SCH (10:18)
[2016-09-12] MEDS: HYDROCHLOROTHIAZIDE 25 MG TABLET (FP) PO SCH (10:18)
[2016-09-12] MEDS: ATENOLOL 25 MG TABLET (FP) PO SCH (10:18)
[2016-09-12] MEDS: LIDOCAINE 5% TOPICAL PATCH TP SCH (10:19)
[2016-09-12] MEDS: HYDROCORTISONE 2.5% TOPICAL CREAM 30 GM TUBE PR SCH (14:31)
[2016-09-12] MEDS: THIAMINE HCL 100 MG TABLET (FP) PO SCH (21:39)
[2016-09-12] MEDS: ATORVASTATIN CA 10 MG TABLET (FP) PO SCH (21:39)
[2016-09-12] MEDS: LIDOCAINE PATCH REMOVAL MC SCH (21:40)
[2016-09-13] MEDS: CYCLOBENZAPRINE HCL 10 MG TABLET (FP) PO SCH ×3 (06:03→21:32)
[2016-09-13] MEDS: NICOTINE POLACRILEX 2 MG GUM BC PRN ×5 (06:03→17:08)
[2016-09-13] MEDS: ASPIRIN COATED 81 MG TABLET.EC PO SCH (10:23)
[2016-09-13] MEDS: amLODIPine BESYLATE 10 MG TABLET (FP) PO SCH (10:23)
[2016-09-13] MEDS: PRENATAL VITAMINS W/ FOLIC ACID TABLET (FP) PO SCH (10:23)
[2016-09-13] MEDS: HYDROCORTISONE 2.5% TOPICAL CREAM 30 GM TUBE PR SCH (10:24)
[2016-09-13] MEDS: ATENOLOL 25 MG TABLET (FP) PO SCH (10:24)
[2016-09-13] MEDS: HYDROCHLOROTHIAZIDE 25 MG TABLET (FP) PO SCH (10:24)
[2016-09-13] MEDS: buPROPion HCL 100 MG TABLET PO SCH (10:24)
[2016-09-13] MEDS: LIDOCAINE 5% TOPICAL PATCH TP SCH (10:25)
[2016-09-13] MEDS: THIAMINE HCL 100 MG TABLET (FP) PO SCH (21:32)
[2016-09-13] MEDS: LIDOCAINE PATCH REMOVAL MC SCH (21:32)
[2016-09-13] MEDS: ATORVASTATIN CA 10 MG TABLET (FP) PO SCH (21:32)
[2016-09-14] MEDS: CYCLOBENZAPRINE HCL 10 MG TABLET (FP) PO SCH (05:55)
[2016-09-14] MEDS: NICOTINE POLACRILEX 2 MG GUM BC PRN (05:55)
[2016-09-14 06:59] VITALS: PULSE 79; TEMP 98.3
--- NOTE | 2016-09-14 09:10 | PN ---
Psychiatric Progress Note Vital Signs: Vital Signs Period Temp Pulse Resp BP Sys/Brian Pulse Ox Last 24 Hr 98.3 F 77-79 18-18 129-146/74-76 Date of Session: 09/14/16 Chief Complaint:: Discharge Note HPI: Patient addressing Alcohol and Cocaine Dependence comorbid with Nicotine Dependence and Schizoaffective Disorder ROS: HTN, Hyperlipidemia, Arthritis were medically managed Current Medications: Active Medications Generic Name Dose Route Start Last Admin Trade Name Freq PRN Reason Stop Dose Admin Acetaminophen 650 mg 09/07/16 21:06 Tylenol - PO Q4H PRN PAIN Al Hydroxide/Mg Hydroxide 30 ml 09/07/16 21:06 Mylanta Oral Suspension - PO Q6H PRN DYSPEPSIA Amlodipine Besylate 10 mg 09/08/16 10:00 09/13/16 10:23 Norvasc - PO 10 mg DAILY ARLETH Administration Aspirin 81 mg 09/08/16 10:00 09/13/16 10:23 Ecotrin - PO 81 mg DAILY ARLETH Administration Atenolol 25 mg 09/08/16 10:00 09/13/16 10:24 Tenormin - PO 25 mg DAILY ARLETH Administration Atorvastatin Calcium 10 mg 09/12/16 22:00 09/13/16 21:32 Lipitor - PO 10 mg HS ARLETH Administration Bupropion HCl 100 mg 09/08/16 11:45 09/13/16 10:24 Wellbutrin - PO 100 mg DAILY ARLETH Administration Cyclobenzaprine HCl 10 mg 09/10/16 14:00 09/14/16 05:55 Flexeril - PO 10 mg TID ARLETH Administration Diphenhydramine HCl 50 mg 09/07/16 21:06 09/08/16 21:36 Benadryl - PO 50 mg HSMR1 PRN Administration INSOMNIA Eucalyptus/Menthol/Phenol/Sorbitol 1 each 09/07/16 21:06 Cepastat Lozenge - MM Q4H PRN SORE THROAT Guaifenesin 10 ml 09/07/16 21:06 Robitussin Dm - PO Q6H PRN COUGH Hydrochlorothiazide 25 mg 09/08/16 10:00 09/13/16 10:24 Hctz - PO 25 mg DAILY ARLETH Administration Hydrocortisone 1 applic 09/12/16 14:05 09/13/16 10:24 Anusol 2.5% Hc Cream - AR 1 applic DAILY ARLETH Administration Hydroxyzine Pamoate 50 mg 09/07/16 21:06 Vistaril - PO Q4H PRN AGITATION Ibuprofen 800 mg 09/10/16 11:32 09/11/16 04:41 Motrin - PO 800 mg Q6H PRN Administration SEVERE PAIN Lidocaine 1 patch 09/08/16 10:00 09/13/16 10:25 Lidoderm Patch - TP 1 patch DAILY ARLETH Administration Loperamide HCl 4 mg 09/07/16 21:06 Imodium - PO Q6H PRN DIARRHEA Magnesium Citrate 300 ml 09/07/16 21:06 Citroma - PO Q48H PRN CONSTIPATION Magnesium Hydroxide 30 ml 09/07/16 21:06 Milk Of Magnesia - PO DAILY PRN CONSTIPATION Miscellaneous 1 each 09/07/16 22:00 09/13/16 21:32 Lidoderm Patch Removal MC 1 each DAILY@2200 ARLETH Administration Nicotine Polacrilex 2 mg 09/07/16 21:06 09/14/16 05:55 Nicorette Gum - BC 2 mg Q2H PRN Administration NICOTINE REPLACEMENT RX Multivit/Folic Acid/Iron 1 tab 09/08/16 10:00 09/13/16 10:23 Vitamins (Sjr) - PO 1 tab DAILY ARLETH Administration Pseudoephedrine/Triprolidine 1 combo 09/07/16 21:06 Actifed - PO TID PRN NASAL CONGESTION Thiamine HCl 100 mg 09/07/16 22:00 09/13/16 21:32 Vitamin B1 - PO 100 mg HS ARLETH Administration Current Side Effect: No Lab tests ordered: Yes Lab tests reviewed: Yes Provider note:: Patient has completed this program today. He has met his treatment goals and will continue to address his issues in outpatient treatment at the [facility]. He verbalized understanding of the negative consequences of his addiction and recognized the importance of using better coping skills in order to maintain abstinence. He responded well to Wellbutrin 100 mg po daily. Script for that medication is electronically transmitted to [facility] at [address] [place] [id number]. He is stable for discharge today Total face to face time:: 35 Mental Status Exam - Mental Status Exam Alert and Oriented to: Time, Place, Person Cognitive Function: Fair Patient Appearance: Well Groomed Mood: Hopeful, Euthymic Patient Behavior: Cooperative Speech Pattern: Clear Voice Loudness: Normal Thought Process: Intact, Goal Oriented Thought Disorder: Not Present Hallucinations: Denies Suicidal Ideation: Denies Homicidal Ideation: Denies Insight/Judgement: Fair Sleep: Fair Appetite: Good Muscle strength/Tone: Normal Gait/Station: Normal Psychiatric Treatment Plan - Problem List (1) Alcohol dependence Current Visit: No (2) Cocaine dependence Current Visit: Yes (3) Nicotine dependence Current Visit: Yes Qualifiers: Nicotine product type: cigarettes Substance use status: uncomplicated Qualified Code(s): F17.210 - Nicotine dependence, cigarettes, uncomplicated (4) Schizoaffective disorder Current Visit: No (5) Hypertension Current Visit: Yes Qualifiers: Hypertension type: essential hypertension Qualified Code(s): I10 - Essential (primary) hypertension (6) Hypercholesteremia Current Visit: No (7) Arthritis Current Visit: No (8) Spinal stenosis, lumbosacral region Current Visit: Yes Initial treatment plan: Patient is discharged today and referred to the [facility] for outpatient treatment
[2016-09-14] MEDS: LIDOCAINE 5% TOPICAL PATCH TP SCH (09:19)
[2016-09-14] MEDS: buPROPion HCL 100 MG TABLET PO SCH (09:19)
[2016-09-14] MEDS: ASPIRIN COATED 81 MG TABLET.EC PO SCH (09:19)
[2016-09-14] MEDS: HYDROCORTISONE 2.5% TOPICAL CREAM 30 GM TUBE PR SCH (09:19)
[2016-09-14] MEDS: ATENOLOL 25 MG TABLET (FP) PO SCH (09:19)
[2016-09-14] MEDS: HYDROCHLOROTHIAZIDE 25 MG TABLET (FP) PO SCH (09:20)
[2016-09-14] MEDS: amLODIPine BESYLATE 10 MG TABLET (FP) PO SCH (09:20)
[2016-09-14] MEDS: PRENATAL VITAMINS W/ FOLIC ACID TABLET (FP) PO SCH (09:21)
[2016-09-14 09:57] VITALS: BP 140/70
== END 2016-09-14 09:35 | disposition home or self-care (01) | DRG 772 ==
LOC: YASAS 17:50 → Y3W 17:57
PROVIDERS: ADMIT Psychiatry & Neurology Psychiatry; ATTEND Psychiatry & Neurology Psychiatry
PROC: HZ42ZZZ Group Counseling for Substance Abuse Treatment, Cognitive-Behavioral (ICD-10-PCS; principal; 2016-09-07)
DX: F10.20 Alcohol dependence, uncomplicated (principal); F14.20 Cocaine dependence, uncomplicated; F17.210 Nicotine dependence, cigarettes, uncomplicated; F25.9 Schizoaffective disorder, unspecified; I10 Essential (primary) hypertension; E78.5 Hyperlipidemia, unspecified; M19.90 Unspecified osteoarthritis, unspecified site; M48.07 Spinal stenosis, lumbosacral region; R19.7 Diarrhea, unspecified; R10.9 Unspecified abdominal pain; Z88.8 Allergy status to other drugs, medicaments and biological substances; Z96.641 Presence of right artificial hip joint
CPT/HCPCS: 81003; 87324; 87449

== ENCOUNTER 2016-10-23 15:57 | Inpatient (IN) | payer OTHER ==
[2016-10-23 17:30] VITALS: BMI 32.5
--- NOTE | 2016-10-23 19:39 | HP ---
Admission [facility] Chief Complaint: I WANT TO GO TO REHAB Allergies/Adverse Reactions: Allergies Allergy/AdvReac Type Severity Reaction Status Date / Time enalapril [Enalapril] Allergy Swelling Verified 10/23/16 18:08 haloperidol [From Haldol] Allergy Verified 10/23/16 18:08 haloperidol lactate Allergy Verified 10/23/16 18:08 [From Haldol] levofloxacin [From Levaquin] Allergy Hives Verified 10/23/16 18:08 ,Enalapril, Haldol, Levaquin Allergy Severe Hives Uncoded 10/23/16 18:08 History of Present Illness: 61 YEARS OLD MALE WITH LONG HISTORY OF ALCOHOL NICOTINE DEPENDENCE HAS HYPERTENSION, HYPERLIPIDEMIA, SPINAL STERNOSIS, AMBULATE WITH WALKER SINCE 2016 AND SCHIZOAFFECTIVE DISORDER IS ADMITTED TO REHAB Exam Limitations: No Limitations - Ebola screening Have you traveled outside of the country in the last 21 days: No Have you had contact with anyone from an Ebola affected area: No Have you been sick,other than usual withdrawal symptoms: No Do you have a fever: No - Review of Systems Constitutional: No Symptoms Reported, Weight Stable EENT: reports: Blurred Vision (EYE GLASSES) Respiratory: reports: No Symptoms reported Cardiac: reports: No Symptoms Reported GI: reports: No Symptoms Reported : reports: No Symptoms Reported Musculoskeletal: reports: Back Pain, Joint Pain (LOWER BACK PAIN), Muscle Weakness (BOTH LEGS) Integumentary: reports: No Symptoms Reported Neuro: reports: No Symptoms reported Endocrine: reports: No Symptoms Reported Hematology: reports: No Symptoms Reported Psychiatric: reports: Judgement Intact, Orientated x3, Anxious, Depressed Other Systems: Reviewed and Negative Patient History - Patient Medical History Hx Anemia: Yes Hx Asthma: No Hx Chronic Obstructive Pulmonary Disease (COPD): No Hx Cancer: No Hx Cardiac Disorders: No Hx Congestive Heart Failure: No Hx Hypertension: Yes Hx Hypercholesterolemia: Yes (ON MEDS) Hx Pacemaker: No HX Cerebrovascular Accident: No Hx Seizures: No Hx Dementia: No Hx Diabetes: No Hx Gastrointestinal Disorders: No Hx Liver Disease: No Hx Genitourinary Disorders: No Hx Sexually Transmitted Disorders: No Hx Renal Disease (ESRD): No Hx Thyroid Disease: No Hx Human Immunodeficiency Virus (HIV): No (Last Tested: approx. 2 weeks ago: NEGATIVE.) Hx Hepatitis C: No (Last Tested: approx. 2 weeks ago: NEGATIVE.) Hx Depression: No Hx Suicide Attempt: No Hx Bipolar Disorder: No Hx Schizophrenia: Yes - Patient Surgical History Past Surgical History: Yes Hx Neurologic Surgery: No Hx Cataract Extraction: No Hx Cardiac Surgery: No Hx Lung Surgery: No Hx Breast Surgery: No Hx Breast Biopsy: No Hx Abdominal Surgery: No Hx Appendectomy: No Hx Cholecystectomy: No Hx Genitourinary Surgery: No Hx Orthopedic Surgery: Yes (right hip replacement in 04/2003 at [facility] for avascular necrosis) Other Surgical History: Surgery to repair Right Fibula fracture: 1996. Anesthesia Reaction: No - PPD History Previous Implant?: Yes Documented Results: Positive w/o proof Implanted On Prior R Admission?: No PPD to be Administered?: No - Smoking Cessation Smoking history: Current every day smoker Have you smoked in the past 12 months: Yes Aproximately how many cigarettes per day: 10 Cigars Per Day: 0 Hx Chewing Tobacco Use: No Initiated information on smoking cessation: Yes 'Breaking Loose' booklet given: 10/23/16 - Substance & Tx. History Hx Alcohol Use: Yes Hx Substance Use: Yes Substance Use Type: Alcohol Hx Substance Use Treatment: Yes (09/07-09/14/16 [facility] - Substances Abused Alcohol Route: Oral Frequency: Daily Amount used: FIFTH VOLKA Age of first use: 15 Date of Last Use: 10/09/16 Family Disease History - Family Disease History Family Disease History: Heart Disease: Father (), Respiratory: Mother ( ), Other: Father, Mother Admission Physical Exam B[facility] - Vital Signs Vital Signs: Vital Signs - 24 hr 10/23/16 17:28 Temperature 98.1 F Pulse Rate 81 Respiratory 18 Rate Blood Pressure 145/90 - Physical General Appearance: Yes: No Apparent Distress, Nourished, Appropriately Dressed HEENTM: Yes: Hearing grossly Normal, Normal ENT Inspection, Normocephalic, Normal Voice Respiratory: Yes: Chest Non-Tender, Lungs Clear, Normal Breath Sounds, No Respiratory Distress, No Accessory Muscle Use Neck: Yes: Supple, Trachea in good position Breast: Yes: Breasts Symetrical Cardiology: Yes: Regular Rhythm, Regular Rate, S1, S2 Abdominal: Yes: Normal Bowel Sounds, Non Tender, Soft Genitourinary: Yes: Within Normal Limits Back: Yes: Normal Inspection Musculoskeletal: Yes: full range of Motion (SLOW DURING POSITION CHANGING), Gait Steady (WALKER), Back pain, Muscle Pain Extremities: Yes: Normal Inspection, Non-Tender, Other (WEAKNESS BOTH LEGS) Neurological: Yes: Fully Oriented, Alert, Normal Response, Sensory Deficit ( BOTH LEGS), Depressed Affect Integumentary: Yes: Warm Lymphatic: Yes: Within Normal Limits - Diagnostic (1) Schizoaffective disorder Current Visit: Yes Status: Suspected Qualifiers: Schizoaffective disorder type: depressive Qualified Code(s): F25.1 - Schizoaffective disorder, depressive type (2) Alcohol dependence with uncomplicated withdrawal Current Visit: Yes Status: Acute (3) Hypercholesteremia Current Visit: Yes Status: Chronic (4) Hypertension Current Visit: Yes Status: Chronic Qualifiers: Hypertension type: essential hypertension Qualified Code(s): I10 - Essential (primary) hypertension (5) Nicotine dependence Current Visit: Yes Status: Acute Qualifiers: Nicotine product type: cigarettes Substance use status: in withdrawal Qualified Code(s): F17.213 - Nicotine dependence, cigarettes, with withdrawal (6) Spinal stenosis, lumbosacral region Current Visit: Yes Status: Chronic (7) Walker as ambulation aid Current Visit: Yes Status: Chronic (8) Status post total hip replacement, right Current Visit: Yes Status: Resolved Cleared for Admission [facility] - Detox or Rehab [facility] Level of Care: Observation Bed Detox Regimen/Protocol: Not Applicable Claeared for Rehab Admission: Yes [facility] Breath Alcohol Content Breath Alcohol Content: 0 Urine Drug Screen - Results Drug Screen Negative: Yes
[2016-10-23] MEDS ORDERED: MAGNESIUM CITRATE 300 ML BOTTLE PO PRN (19:45)
[2016-10-23] MEDS ORDERED: MAG HYDROX/AL HYDROX/SIMETH 30 ML UNIT-DOSE CUP PO PRN (19:45)
[2016-10-23] MEDS ORDERED: MENTHOL/PHENOL 1 EACH UD MM PRN (19:45)
[2016-10-23] MEDS ORDERED: guaiFENesin/D-METHORPHAN HB 10 ML UNIT-DOSE CUPS PO PRN (19:45)
[2016-10-23] MEDS ORDERED: LOPERAMIDE HCL 2 MG CAPSULE PO PRN (19:45)
[2016-10-23] MEDS ORDERED: diphenhydrAMINE HCL 50 MG CAPSULE PO PRN (19:45)
[2016-10-23] MEDS ORDERED: MAGNESIUM HYDROX 2400MG/30ML ORAL SUSPENSION 30 ML CUP PO PRN (19:45)
[2016-10-23] MEDS ORDERED: P-EPHED 60MG/TRIPROLIDI 2.5MG TABLET PO PRN (19:45)
[2016-10-23] MEDS ORDERED: hydrOXYzine PAMOATE 50 MG CAPSULE (FP) PO PRN (19:45)
[2016-10-23] MEDS ORDERED: NICOTINE 14 MG/24 HOURS TOPICAL PATCH TD PRN (19:45)
[2016-10-23] MEDS: THIAMINE HCL 100 MG TABLET (FP) PO SCH (21:35)
[2016-10-23] MEDS: ATORVASTATIN CA 20 MG TABLET (FP) PO SCH (21:35)
[2016-10-23] MEDS: NICOTINE POLACRILEX 2 MG GUM BUC PRN (21:36)
[2016-10-23] MEDS: LIDOCAINE PATCH REMOVAL MC SCH (21:36)
[2016-10-24] MEDS: NICOTINE POLACRILEX 2 MG GUM BUC PRN ×5 (06:01→20:27)
--- NOTE | 2016-10-24 06:18 | HP ---
Psychiatrist Admission - Data Date of interview: 10/24/16 Admission source: [facility] Identifying data: This is the third [facility] admission for this 61 years old single Black male, unemployed on public assistance, domiciled Medical History: Significant for hypertension, hypercholesterolemia, arthritis at L3-L4 level, angina and history of orthosurgery for right hip replacement due to avascular necrosis (2004). Smokes 10 cigarettes daily Psychiatric History: Reports that his first psychiatric contact was in 2003 when he was admited to [facility] in [place] because of mood dysregulation, thought disorder, auditory hallucinations and degradation of general functioning. Reports that he was diagnosed with Shizoaffective Disorder and treated with psychotropic medication. Reports more than multiple subsequent admissions to [facility], [facility], [facility] and [facility] in [place]. Most recent admission was in Sep for AH, SI, mood dysregulation to [facility]. He was discharged yesterday on Zyprexa 10 mg po BID , Wellbutin 100 mg po daily and Trazadone 50 mg po HS. Reports receiving OPD care at the [facility] in the [place]. Denies history of suicidal attempt. At present, reports feeling depressed. 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 He served in [facility] and [place] in the . Honorably discharged (self-report). Additional Comment: Reports history of several incarcerations over the years including 3 felony convictions. No parole/probation Vital Signs: Vital Signs - 24 hr 10/23/16 10/24/16 10/24/16 17:28 00:30 03:30 Temperature 98.1 F Pulse Rate 81 Respiratory 18 20 18 Rate Blood Pressure 145/90 Allergies/Adverse Reactions: Allergies Allergy/AdvReac Type Severity Reaction Status Date / Time enalapril [Enalapril] Allergy Swelling Verified 10/23/16 18:08 haloperidol [From Haldol] Allergy Verified 10/23/16 18:08 haloperidol lactate Allergy Verified 10/23/16 18:08 [From Haldol] levofloxacin [From Levaquin] Allergy Hives Verified 10/23/16 18:08 ,Enalapril, Haldol, Levaquin Allergy Severe Hives Uncoded 10/23/16 18:08 Date of last physical exam: 10/16/16 Concur with the findings of this exam: Yes - Substance Abuse/Tx History Hx Alcohol Use: Yes Hx Substance Use: No Substance Use Type: Alcohol (Started drinking alcohol at age 15, consumes a fifth of vodka daily. Last drink on 10/09/16) Hx Substance Use Treatment: Yes (2 previous inpt detox & 2 inpt rehab @ [facility]) - Admission Criteria Previous failed treatment: Yes Poor recovery environment: Yes Comorbidities: Yes Lacks judgement: Yes Mental Status Exam - Mental Status Exam Alert and Oriented to: Time, Place, Person Cognitive Function: Fair Patient Appearance: Well Groomed Mood: Hopeful, Euthymic Affect: Normal Range Patient Behavior: Cooperative Speech Pattern: Clear Voice Loudness: Normal Thought Process: Intact, Goal Oriented Thought Disorder: Not Present Hallucinations: Denies Suicidal Ideation: Denies Homicidal Ideation: Denies Insight/Judgement: Fair Sleep: Poorly Appetite: Good Muscle strength/Tone: Normal Gait/Station: Normal Psychiatric Findings - Problem List ([place] 1, 2,3) (1) Alcohol dependence Current Visit: No Status: Acute (2) Cocaine dependence Current Visit: No Status: Chronic (3) Nicotine dependence Current Visit: Yes Status: Acute Qualifiers: Nicotine product type: cigarettes Substance use status: in withdrawal Qualified Code(s): F17.213 - Nicotine dependence, cigarettes, with withdrawal (4) Schizoaffective disorder Current Visit: Yes Status: Suspected Qualifiers: Schizoaffective disorder type: depressive Qualified Code(s): F25.1 - Schizoaffective disorder, depressive type (5) Hypercholesteremia Current Visit: Yes Status: Chronic (6) Hypertension Current Visit: Yes Status: Chronic Qualifiers: Hypertension type: essential hypertension Qualified Code(s): I10 - Essential (primary) hypertension (7) Spinal stenosis, lumbosacral region Current Visit: Yes Status: Chronic (8) Status post total hip replacement, right Current Visit: Yes Status: Resolved - Initial Treatment Plan Initial Treatment Plan: 1) Continue Wellbutrin 100 mg po daily, Zyprexa 10 mg po BID and Trazadone 50 mg po HS. 2) Monitor progress
[2016-10-24 09:42] LABS: MCHC 33.6 g/dl (32.0-35.9); MEAN CELL VOLUME 98.1 fl (80-96); MEAN PLT VOLUME 8.5 fl (7.5-11.1); PLATELET COUNT 211 K/MM3 (134-434); RDW 14.6 % (11.9-15.9); URINE APPEARANCE CLEAR; URINE BILIRUBIN NEGATIVE (NEGATIVE); URINE BLOOD NEGATIVE (NEGATIVE); URINE COLOR LT. YELLOW; URINE GLUCOSE (UA) NEGATIVE (NEGATIVE); URINE KETONE TRACE (NEGATIVE); URINE LEUK ESTERASE NEGATIVE (NEGATIVE); URINE NITRITE NEGATIVE (NEGATIVE); URINE PROTEIN NEGATIVE (NEGATIVE); URINE UROBILINOGEN 0.2 mg/dL (0.2-1.0)
[2016-10-24] MEDS: LIDOCAINE 5% TOPICAL PATCH TP SCH (09:50)
[2016-10-24] MEDS: ATENOLOL 25 MG TABLET (FP) PO SCH (09:50)
[2016-10-24] MEDS: HYDROCHLOROTHIAZIDE 25 MG TABLET (FP) PO SCH (09:50)
[2016-10-24] MEDS: amLODIPine BESYLATE 10 MG TABLET (FP) PO SCH (09:50)
[2016-10-24] MEDS: ASPIRIN 81 MG CHEWABLE TABLETS PO SCH (09:50)
[2016-10-24] MEDS: PRENATAL VITAMINS W/ FOLIC ACID TABLET (FP) PO SCH (09:50)
[2016-10-24 10:09] LABS: ALBUMIN 3.6 g/dl (3.4-5.0); ALK PHOS 83 U/L (45-117); ANION GAP 7 (8-16); BILIRUBIN,TOTAL 0.6 mg/dL (0.2-1.0); CALCIUM 9.2 mg/dL (8.5-10.1); CO2 30 mmol/L (21-32); CREATININE 1.2 mg/dL (0.7-1.3); GLUCOSE,RANDOM 154 mg/dL (74-106); SGOT/AST 14 U/L (15-37); SGPT/ALT 21 U/L (12-78); TOT PROT 7.8 g/dl (6.4-8.2)
[2016-10-24] MEDS: PATIENT'S OWN MEDICATION (NON-FORMULARY) (Meloxicam 15 MG) PO SCH (10:23)
[2016-10-24] MEDS: buPROPion HCL 100 MG TABLET PO SCH (10:26)
[2016-10-24] MEDS: OLANZapine 10 MG TABLET PO SCH ×2 (10:26→21:22)
[2016-10-24] MEDS: CHOLECALCIFEROL (VITAMIN D3) 1,000 UNIT TABLET (FP) PO SCH (10:50)
--- NOTE | 2016-10-24 12:58 | EKG ---
Test Reason : Blood Pressure : / mmHG Vent. Rate : 065 BPM Atrial Rate : 065 BPM P-R Int : 180 ms QRS Dur : 088 ms QT Int : 414 ms P-R-T Axes : 069 -33 000 degrees QTc Int : 430 ms NORMAL SINUS RHYTHM LEFT AXIS DEVIATION MINIMAL VOLTAGE CRITERIA FOR LVH, MAY BE NORMAL VARIANT NONSPECIFIC T WAVE ABNORMALITY ABNORMAL ECG WHEN COMPARED WITH ECG OF 03-SEP-2016 13:04, ABSENCE OF VENTRICULAR PREMATURE BEATS REPEAT EKG IF CLINICALLY INDICATED Confirmed by KIERAN YUNG MD ([id number]) on 10/24/2016 12:57:46 PM Referred By: Fiona Wallace Confirmed By:KIERAN YUNG MD
[2016-10-24] MEDS: TOPIRAMATE 25 MG TABLET (FP) PO SCH ×2 (17:05→21:22)
[2016-10-24] MEDS: THIAMINE HCL 100 MG TABLET (FP) PO SCH (21:21)
[2016-10-24] MEDS: traZODone HCL 50 MG TABLET (FP) PO SCH (21:22)
[2016-10-24] MEDS: ATORVASTATIN CA 20 MG TABLET (FP) PO SCH (21:22)
[2016-10-24] MEDS: TOLNAFTATE 1% CREAM 15 GM TUBE TP SCH (21:23)
[2016-10-24] MEDS: LIDOCAINE PATCH REMOVAL MC SCH (21:24)
[2016-10-25] MEDS: TOPIRAMATE 25 MG TABLET (FP) PO SCH ×3 (06:46→21:11)
[2016-10-25] MEDS: NICOTINE POLACRILEX 2 MG GUM BUC PRN ×4 (06:48→17:03)
[2016-10-25] MEDS: PATIENT'S OWN MEDICATION (NON-FORMULARY) (Meloxicam 15 MG) PO SCH (09:41)
[2016-10-25] MEDS: LIDOCAINE 5% TOPICAL PATCH TP SCH (09:41)
[2016-10-25] MEDS: HYDROCHLOROTHIAZIDE 25 MG TABLET (FP) PO SCH (09:41)
[2016-10-25] MEDS: PRENATAL VITAMINS W/ FOLIC ACID TABLET (FP) PO SCH (09:41)
[2016-10-25] MEDS: ASPIRIN 81 MG CHEWABLE TABLETS PO SCH (09:41)
[2016-10-25] MEDS: OLANZapine 10 MG TABLET PO SCH ×2 (09:41→21:10)
[2016-10-25] MEDS: CHOLECALCIFEROL (VITAMIN D3) 1,000 UNIT TABLET (FP) PO SCH (09:41)
[2016-10-25] MEDS: ATENOLOL 25 MG TABLET (FP) PO SCH (09:41)
[2016-10-25] MEDS: amLODIPine BESYLATE 10 MG TABLET (FP) PO SCH (09:41)
[2016-10-25] MEDS: buPROPion HCL 100 MG TABLET PO SCH (09:46)
[2016-10-25] MEDS: TOLNAFTATE 1% CREAM 15 GM TUBE TP SCH ×2 (10:42→21:11)
[2016-10-25] MEDS: NAPHAZOLINE/PHENIRAMINE OPHTHALMIC 15 ML BOTTLE OU SCH ×3 (14:02→21:10)
[2016-10-25] MEDS: THIAMINE HCL 100 MG TABLET (FP) PO SCH (21:11)
[2016-10-25] MEDS: ATORVASTATIN CA 20 MG TABLET (FP) PO SCH (21:11)
[2016-10-25] MEDS: LIDOCAINE PATCH REMOVAL MC SCH (21:12)
[2016-10-25] MEDS: traZODone HCL 50 MG TABLET (FP) PO SCH (21:14)
[2016-10-26] MEDS: NICOTINE POLACRILEX 2 MG GUM BUC PRN ×5 (06:15→19:12)
[2016-10-26] MEDS: TOPIRAMATE 25 MG TABLET (FP) PO SCH ×3 (06:15→21:06)
[2016-10-26] MEDS: ATENOLOL 25 MG TABLET (FP) PO SCH (09:48)
[2016-10-26] MEDS: HYDROCHLOROTHIAZIDE 25 MG TABLET (FP) PO SCH (09:48)
[2016-10-26] MEDS: NAPHAZOLINE/PHENIRAMINE OPHTHALMIC 15 ML BOTTLE OU SCH ×4 (09:48→21:06)
[2016-10-26] MEDS: PRENATAL VITAMINS W/ FOLIC ACID TABLET (FP) PO SCH (09:48)
[2016-10-26] MEDS: OLANZapine 10 MG TABLET PO SCH ×2 (09:48→21:05)
[2016-10-26] MEDS: PATIENT'S OWN MEDICATION (NON-FORMULARY) (Meloxicam 15 MG) PO SCH (09:49)
[2016-10-26] MEDS: LIDOCAINE 5% TOPICAL PATCH TP SCH (09:49)
[2016-10-26] MEDS: buPROPion HCL 100 MG TABLET PO SCH (09:49)
[2016-10-26] MEDS: ASPIRIN 81 MG CHEWABLE TABLETS PO SCH (09:49)
[2016-10-26] MEDS: amLODIPine BESYLATE 10 MG TABLET (FP) PO SCH (09:50)
[2016-10-26] MEDS: TOLNAFTATE 1% CREAM 15 GM TUBE TP SCH ×2 (09:53→21:06)
[2016-10-26] MEDS: CHOLECALCIFEROL (VITAMIN D3) 1,000 UNIT TABLET (FP) PO SCH (09:54)
[2016-10-26] MEDS: ACETAMINOPHEN 325 MG TABLET (FP) PO PRN (11:00)
[2016-10-26] MEDS: LIDOCAINE PATCH REMOVAL MC SCH (21:05)
[2016-10-26] MEDS: THIAMINE HCL 100 MG TABLET (FP) PO SCH (21:05)
[2016-10-26] MEDS: traZODone HCL 50 MG TABLET (FP) PO SCH (21:06)
[2016-10-26] MEDS: ATORVASTATIN CA 20 MG TABLET (FP) PO SCH (21:06)
[2016-10-27] MEDS: TOPIRAMATE 25 MG TABLET (FP) PO SCH ×3 (06:00→21:05)
[2016-10-27] MEDS: NICOTINE POLACRILEX 2 MG GUM BUC PRN ×6 (06:00→19:37)
[2016-10-27] MEDS ORDERED: PT OWN MED DRAWER 7, Y5N ONE ×5 (08:42→22:10)
[2016-10-27] MEDS: amLODIPine BESYLATE 10 MG TABLET (FP) PO SCH (09:40)
[2016-10-27] MEDS: OLANZapine 10 MG TABLET PO SCH ×2 (09:40→21:06)
[2016-10-27] MEDS: ATENOLOL 25 MG TABLET (FP) PO SCH (09:40)
[2016-10-27] MEDS: PRENATAL VITAMINS W/ FOLIC ACID TABLET (FP) PO SCH (09:40)
[2016-10-27] MEDS: ASPIRIN 81 MG CHEWABLE TABLETS PO SCH (09:40)
[2016-10-27] MEDS: NAPHAZOLINE/PHENIRAMINE OPHTHALMIC 15 ML BOTTLE OU SCH ×4 (09:40→21:08)
[2016-10-27] MEDS: TOLNAFTATE 1% CREAM 15 GM TUBE TP SCH ×2 (09:40→21:08)
[2016-10-27] MEDS: PATIENT'S OWN MEDICATION (NON-FORMULARY) (Meloxicam 15 MG) PO SCH (09:41)
[2016-10-27] MEDS: LIDOCAINE 5% TOPICAL PATCH TP SCH (09:41)
[2016-10-27] MEDS: HYDROCHLOROTHIAZIDE 25 MG TABLET (FP) PO SCH (09:41)
[2016-10-27] MEDS: CHOLECALCIFEROL (VITAMIN D3) 1,000 UNIT TABLET (FP) PO SCH (09:42)
[2016-10-27] MEDS: buPROPion HCL 100 MG TABLET PO SCH (09:43)
[2016-10-27] MEDS: THIAMINE HCL 100 MG TABLET (FP) PO SCH (21:05)
[2016-10-27] MEDS: ATORVASTATIN CA 20 MG TABLET (FP) PO SCH (21:06)
[2016-10-27] MEDS: traZODone HCL 50 MG TABLET (FP) PO SCH (21:06)
[2016-10-27] MEDS: LIDOCAINE PATCH REMOVAL MC SCH (21:07)
[2016-10-28] MEDS: TOPIRAMATE 25 MG TABLET (FP) PO SCH ×3 (06:09→21:59)
[2016-10-28] MEDS: NICOTINE POLACRILEX 2 MG GUM BUC PRN ×5 (06:11→20:34)
[2016-10-28] MEDS ORDERED: PT OWN MED DRAWER 7, Y5N ONE (09:00)
[2016-10-28] MEDS: ASPIRIN 81 MG CHEWABLE TABLETS PO SCH (09:50)
[2016-10-28] MEDS: OLANZapine 10 MG TABLET PO SCH ×2 (09:50→21:59)
[2016-10-28] MEDS: HYDROCHLOROTHIAZIDE 25 MG TABLET (FP) PO SCH (09:50)
[2016-10-28] MEDS: amLODIPine BESYLATE 10 MG TABLET (FP) PO SCH (09:50)
[2016-10-28] MEDS: PRENATAL VITAMINS W/ FOLIC ACID TABLET (FP) PO SCH (09:50)
[2016-10-28] MEDS: buPROPion HCL 100 MG TABLET PO SCH (09:50)
[2016-10-28] MEDS: ATENOLOL 25 MG TABLET (FP) PO SCH (09:50)
[2016-10-28] MEDS: TOLNAFTATE 1% CREAM 15 GM TUBE TP SCH ×2 (09:51→21:59)
[2016-10-28] MEDS: PATIENT'S OWN MEDICATION (NON-FORMULARY) (Meloxicam 15 MG) PO SCH (09:51)
[2016-10-28] MEDS: LIDOCAINE 5% TOPICAL PATCH TP SCH (09:51)
[2016-10-28] MEDS: NAPHAZOLINE/PHENIRAMINE OPHTHALMIC 15 ML BOTTLE OU SCH ×4 (09:51→22:00)
[2016-10-28] MEDS: CHOLECALCIFEROL (VITAMIN D3) 1,000 UNIT TABLET (FP) PO SCH (09:51)
[2016-10-28] MEDS: traZODone HCL 50 MG TABLET (FP) PO SCH (21:59)
[2016-10-28] MEDS: ATORVASTATIN CA 20 MG TABLET (FP) PO SCH (21:59)
[2016-10-28] MEDS: THIAMINE HCL 100 MG TABLET (FP) PO SCH (21:59)
[2016-10-28] MEDS: LIDOCAINE PATCH REMOVAL MC SCH (22:00)
[2016-10-29] MEDS: TOPIRAMATE 25 MG TABLET (FP) PO SCH ×3 (06:08→21:04)
[2016-10-29] MEDS: NICOTINE POLACRILEX 2 MG GUM BUC PRN ×6 (06:09→19:22)
[2016-10-29] MEDS ORDERED: PT OWN MED DRAWER 7, Y5N ONE (08:37)
[2016-10-29] MEDS: buPROPion HCL 100 MG TABLET PO SCH (09:54)
[2016-10-29] MEDS: NAPHAZOLINE/PHENIRAMINE OPHTHALMIC 15 ML BOTTLE OU SCH ×4 (09:54→21:05)
[2016-10-29] MEDS: ASPIRIN 81 MG CHEWABLE TABLETS PO SCH (09:54)
[2016-10-29] MEDS: TOLNAFTATE 1% CREAM 15 GM TUBE TP SCH ×2 (09:54→21:05)
[2016-10-29] MEDS: OLANZapine 10 MG TABLET PO SCH ×2 (09:54→21:04)
[2016-10-29] MEDS: CHOLECALCIFEROL (VITAMIN D3) 1,000 UNIT TABLET (FP) PO SCH (09:54)
[2016-10-29] MEDS: LIDOCAINE 5% TOPICAL PATCH TP SCH (09:54)
[2016-10-29] MEDS: HYDROCHLOROTHIAZIDE 25 MG TABLET (FP) PO SCH (09:54)
[2016-10-29] MEDS: ATENOLOL 25 MG TABLET (FP) PO SCH (09:54)
[2016-10-29] MEDS: PATIENT'S OWN MEDICATION (NON-FORMULARY) (Meloxicam 15 MG) PO SCH (09:55)
[2016-10-29] MEDS: amLODIPine BESYLATE 10 MG TABLET (FP) PO SCH (09:56)
[2016-10-29] MEDS: PRENATAL VITAMINS W/ FOLIC ACID TABLET (FP) PO SCH (10:01)
[2016-10-29] MEDS: THIAMINE HCL 100 MG TABLET (FP) PO SCH (21:04)
[2016-10-29] MEDS: ATORVASTATIN CA 20 MG TABLET (FP) PO SCH (21:04)
[2016-10-29] MEDS: traZODone HCL 50 MG TABLET (FP) PO SCH (21:04)
[2016-10-29] MEDS: LIDOCAINE PATCH REMOVAL MC SCH (21:37)
[2016-10-30] MEDS: TOPIRAMATE 25 MG TABLET (FP) PO SCH ×3 (06:03→21:09)
[2016-10-30] MEDS ORDERED: PT OWN MED DRAWER 7, Y5N ONE ×2 (08:33→14:08)
[2016-10-30] MEDS: TOLNAFTATE 1% CREAM 15 GM TUBE TP SCH ×2 (09:41→21:52)
[2016-10-30] MEDS: NAPHAZOLINE/PHENIRAMINE OPHTHALMIC 15 ML BOTTLE OU SCH ×4 (09:41→21:52)
[2016-10-30] MEDS: LIDOCAINE 5% TOPICAL PATCH TP SCH (09:42)
[2016-10-30] MEDS: CHOLECALCIFEROL (VITAMIN D3) 1,000 UNIT TABLET (FP) PO SCH (09:42)
[2016-10-30] MEDS: PRENATAL VITAMINS W/ FOLIC ACID TABLET (FP) PO SCH (09:42)
[2016-10-30] MEDS: buPROPion HCL 100 MG TABLET PO SCH (09:42)
[2016-10-30] MEDS: amLODIPine BESYLATE 10 MG TABLET (FP) PO SCH (09:42)
[2016-10-30] MEDS: ATENOLOL 25 MG TABLET (FP) PO SCH (09:42)
[2016-10-30] MEDS: ASPIRIN 81 MG CHEWABLE TABLETS PO SCH (09:42)
[2016-10-30] MEDS: OLANZapine 10 MG TABLET PO SCH ×2 (09:42→21:09)
[2016-10-30] MEDS: HYDROCHLOROTHIAZIDE 25 MG TABLET (FP) PO SCH (09:43)
[2016-10-30] MEDS: PATIENT'S OWN MEDICATION (NON-FORMULARY) (Meloxicam 15 MG) PO SCH (09:43)
[2016-10-30] MEDS: NICOTINE POLACRILEX 2 MG GUM BUC PRN ×5 (09:45→20:26)
--- NOTE | 2016-10-30 09:54 | PN ---
Psychiatric Progress Note Vital Signs: Vital Signs Period Temp Pulse Resp BP Sys/Brian Pulse Ox Last 24 Hr 98.6 F 84-103 18-18 138-141/75-83 Date of Session: 10/30/16 Chief Complaint:: Discharge Note HPI: Patient addressing Alcohol and Cocaine Dependence comorbid with Nicotine Dependence and Schizoaffective Disorder ROS: HTN, Hyperlipidemia, Spinal Stenosis of lumbosacral region were medically managed Current Medications: Active Medications Generic Name Dose Route Start Last Admin Trade Name Freq PRN Reason Stop Dose Admin Acetaminophen 650 mg 10/23/16 19:45 10/26/16 11:00 Tylenol - PO 650 mg Q4H PRN Administration PAIN Al Hydroxide/Mg Hydroxide 30 ml 10/23/16 19:45 Mylanta Oral Suspension - PO Q6H PRN DYSPEPSIA Amlodipine Besylate 10 mg 10/24/16 10:00 10/30/16 09:42 Norvasc - PO 10 mg DAILY ARLETH Administration Aspirin 81 mg 10/24/16 10:00 10/30/16 09:42 Asa - PO 81 mg DAILY ARLETH Administration Atenolol 25 mg 10/24/16 10:00 10/30/16 09:42 Tenormin - PO 25 mg DAILY ARLETH Administration Atorvastatin Calcium 20 mg 10/23/16 22:00 10/29/16 21:04 Lipitor - PO 20 mg HS ARLETH Administration Bupropion HCl 100 mg 10/24/16 10:15 10/30/16 09:42 Wellbutrin - PO 100 mg DAILY ARLETH Administration Cholecalciferol 2,000 unit 10/24/16 10:00 10/30/16 09:42 Vitamin D3 - PO 2,000 unit DAILY ARLETH Administration Diphenhydramine HCl 50 mg 10/23/16 19:45 Benadryl - PO HSMR1 PRN INSOMNIA Eucalyptus/Menthol/Phenol/Sorbitol 1 each 10/23/16 19:45 Cepastat Lozenge - MM Q4H PRN SORE THROAT Guaifenesin 10 ml 10/23/16 19:45 Robitussin Dm - PO Q6H PRN COUGH Hydrochlorothiazide 25 mg 10/24/16 10:00 10/30/16 09:43 Hctz - PO 25 mg DAILY ARLETH Administration Hydroxyzine Pamoate 50 mg 10/23/16 19:45 Vistaril - PO Q4H PRN AGITATION Lidocaine 1 patch 10/24/16 10:00 10/30/16 09:42 Lidoderm Patch - TP 1 patch DAILY ARLETH Administration Loperamide HCl 4 mg 10/23/16 19:45 Imodium - PO Q6H PRN DIARRHEA Magnesium Citrate 300 ml 10/23/16 19:45 Citroma - PO Q48H PRN CONSTIPATION Magnesium Hydroxide 30 ml 10/23/16 19:45 Milk Of Magnesia - PO DAILY PRN CONSTIPATION Miscellaneous 1 each 10/23/16 22:00 10/29/16 21:37 Lidoderm Patch Removal MC 1 each DAILY@2200 ARLETH Administration Naphazoline HCl/Pheniramine Maleate 2 drop 10/25/16 14:00 10/30/16 09:41 Visine-A - OU 2 drop QID ARLETH Administration Nicotine 14 mg 10/23/16 19:45 Nicoderm Patch - TD DAILY PRN WITHDRAWAL(CONT SUBST) Nicotine Polacrilex 2 mg 10/23/16 19:45 10/30/16 09:45 Nicorette Gum - BUC 2 mg Q2H PRN Administration NICOTINE REPLACEMENT RX Non-Formulary Medication 15 mg 10/24/16 10:00 10/30/16 09:43 Meloxicam PO 15 mg DAILY ARLETH Administration Olanzapine 10 mg 10/24/16 10:15 10/30/16 09:42 Zyprexa - PO 10 mg BID ARLETH Administration Multivit/Folic Acid/Iron 1 tab 10/24/16 10:00 10/30/16 09:42 Vitamins (Sjr) - PO 1 tab DAILY ARLETH Administration Pseudoephedrine/Triprolidine 1 combo 10/23/16 19:45 Actifed - PO TID PRN NASAL CONGESTION Thiamine HCl 100 mg 10/23/16 22:00 10/29/16 21:04 Vitamin B1 - PO 100 mg HS ARLETH Administration Tolnaftate 1 applic 10/24/16 22:00 10/30/16 09:41 Tinactin 1% Cream - TP 1 applic BID ARLETH Administration Topiramate 50 mg 10/24/16 15:15 10/30/16 06:03 Topamax - PO 50 mg TID ARLETH Administration Trazodone HCl 50 mg 10/24/16 22:00 10/29/16 21:04 Desyrel - PO 50 mg HS ARLETH Administration Current Side Effect: No Lab tests ordered: Yes Lab tests reviewed: Yes Provider note:: Patient will complete this program on 10/31/16. He has met his short term goals and will continue to address his issues in outpatient treatment at the [facility].Told content writer:"I know that I cannot be around people that use and I must go to AA/NA ". He responded well to Wellbutrin 100 mg po daily, Zyprexa 10 mg po BID and Trazadone 50 mg po HS. Scripts for 30 days supply of these medications will be electronically transmitted to [facility] at [address] [place] [address]. He is stable for discharge on 10/31/16 Total face to face time:: 35 Mental Status Exam - Mental Status Exam Alert and Oriented to: Time, Place, Person Cognitive Function: Fair Patient Appearance: Well Groomed Mood: Hopeful, Euthymic Affect: Appropriate Patient Behavior: Cooperative Speech Pattern: Clear Voice Loudness: Normal Thought Process: Intact, Goal Oriented Thought Disorder: Not Present Hallucinations: Denies Suicidal Ideation: Denies Homicidal Ideation: Denies Insight/Judgement: Fair Sleep: Fair Appetite: Good Muscle strength/Tone: Normal Gait/Station: Antalgic (due to back issue) Psychiatric Treatment Plan - Problem List (1) Alcohol dependence Current Visit: No (2) Cocaine dependence Current Visit: No (3) Nicotine dependence Current Visit: Yes Qualifiers: Nicotine product type: cigarettes Substance use status: in withdrawal Qualified Code(s): F17.213 - Nicotine dependence, cigarettes, with withdrawal (4) Schizoaffective disorder Current Visit: Yes Qualifiers: Schizoaffective disorder type: depressive Qualified Code(s): F25.1 - Schizoaffective disorder, depressive type (5) Hypercholesteremia Current Visit: Yes (6) Hypertension Current Visit: Yes Qualifiers: Hypertension type: essential hypertension Qualified Code(s): I10 - Essential (primary) hypertension (7) Spinal stenosis, lumbosacral region Current Visit: Yes (8) Status post total hip replacement, right Current Visit: Yes Initial treatment plan: Patient is discharged tomorrow and referred to [facility] for outpatient treatment
[2016-10-30] MEDS: ACETAMINOPHEN 325 MG TABLET (FP) PO PRN (11:11)
[2016-10-30] MEDS: traZODone HCL 50 MG TABLET (FP) PO SCH (21:09)
[2016-10-30] MEDS: ATORVASTATIN CA 20 MG TABLET (FP) PO SCH (21:09)
[2016-10-30] MEDS: LIDOCAINE PATCH REMOVAL MC SCH (21:10)
[2016-10-30] MEDS: THIAMINE HCL 100 MG TABLET (FP) PO SCH (21:52)
[2016-10-31] MEDS: TOPIRAMATE 25 MG TABLET (FP) PO SCH (06:14)
[2016-10-31] MEDS: NICOTINE POLACRILEX 2 MG GUM BUC PRN ×2 (06:16→09:12)
[2016-10-31 06:42] VITALS: BP 108/70; PULSE 75; TEMP 97.9
[2016-10-31] MEDS: CHOLECALCIFEROL (VITAMIN D3) 1,000 UNIT TABLET (FP) PO SCH (09:07)
[2016-10-31] MEDS: ASPIRIN 81 MG CHEWABLE TABLETS PO SCH (09:08)
[2016-10-31] MEDS: OLANZapine 10 MG TABLET PO SCH (09:08)
[2016-10-31] MEDS: amLODIPine BESYLATE 10 MG TABLET (FP) PO SCH (09:08)
[2016-10-31] MEDS: PRENATAL VITAMINS W/ FOLIC ACID TABLET (FP) PO SCH (09:08)
[2016-10-31] MEDS: HYDROCHLOROTHIAZIDE 25 MG TABLET (FP) PO SCH (09:08)
[2016-10-31] MEDS: LIDOCAINE 5% TOPICAL PATCH TP SCH (09:08)
[2016-10-31] MEDS: buPROPion HCL 100 MG TABLET PO SCH (09:08)
[2016-10-31] MEDS: ATENOLOL 25 MG TABLET (FP) PO SCH (09:08)
[2016-10-31] MEDS ORDERED: PT OWN MED DRAWER 7, Y5N ONE (09:09)
[2016-10-31] MEDS: PATIENT'S OWN MEDICATION (NON-FORMULARY) (Meloxicam 15 MG) PO SCH (09:09)
[2016-10-31] MEDS: NAPHAZOLINE/PHENIRAMINE OPHTHALMIC 15 ML BOTTLE OU SCH (09:10)
[2016-10-31] MEDS: TOLNAFTATE 1% CREAM 15 GM TUBE TP SCH (09:11)
== END 2016-10-31 09:35 | disposition home or self-care (01) | DRG 772 ==
LOC: YASAS 15:57 → Y3W 18:09
PROVIDERS: ADMIT Psychiatry & Neurology Psychiatry; ATTEND Psychiatry & Neurology Psychiatry
PROC: HZ42ZZZ Group Counseling for Substance Abuse Treatment, Cognitive-Behavioral (ICD-10-PCS; principal; 2016-10-23)
DX: F10.20 Alcohol dependence, uncomplicated (principal); F14.20 Cocaine dependence, uncomplicated; F17.213 Nicotine dependence, cigarettes, with withdrawal; F25.1 Schizoaffective disorder, depressive type; E78.00 Pure hypercholesterolemia, unspecified; I10 Essential (primary) hypertension; M48.07 Spinal stenosis, lumbosacral region; Z96.642 Presence of left artificial hip joint
CPT/HCPCS: 36415; 80053; 81003; 85027; 86593; 86803; 93005; 93010

== ENCOUNTER 2016-12-02 16:42 | Inpatient (IN) | payer OTHER ==
[2016-12-02 18:05] VITALS: BMI 31.5
[2016-12-02] MEDS ORDERED: MAGNESIUM HYDROX 2400MG/30ML ORAL SUSPENSION 30 ML CUP PO PRN (18:56)
[2016-12-02] MEDS ORDERED: P-EPHED 60MG/TRIPROLIDI 2.5MG TABLET PO PRN (18:56)
[2016-12-02] MEDS ORDERED: MAGNESIUM CITRATE 300 ML BOTTLE PO PRN (18:56)
[2016-12-02] MEDS ORDERED: chlordiazePOXIDE HCL 25 MG CAPSULE PO PRN (18:56)
[2016-12-02] MEDS ORDERED: LOPERAMIDE HCL 2 MG CAPSULE PO PRN (18:56)
[2016-12-02] MEDS ORDERED: ACETAMINOPHEN 325 MG TABLET (FP) PO PRN (18:56)
[2016-12-02] MEDS ORDERED: MAG HYDROX/AL HYDROX/SIMETH 30 ML UNIT-DOSE CUP PO PRN (18:56)
[2016-12-02] MEDS ORDERED: hydrOXYzine PAMOATE 50 MG CAPSULE (FP) PO PRN (18:56)
[2016-12-02] MEDS ORDERED: chlordiazePOXIDE HCL 25 MG CAPSULE PO ONE (18:56)
[2016-12-02] MEDS ORDERED: diphenhydrAMINE HCL 50 MG CAPSULE PO PRN (18:56)
[2016-12-02] MEDS ORDERED: guaiFENesin/D-METHORPHAN HB 10 ML UNIT-DOSE CUPS PO PRN (18:56)
[2016-12-02] MEDS ORDERED: MENTHOL/PHENOL 1 EACH UD MM PRN (18:56)
[2016-12-02] MEDS ORDERED: IBUPROFEN 400 MG TABLET (FP) PO PRN (18:56)
--- NOTE | 2016-12-02 19:07 | HP ---
CIWA Score - CIWA Score Nausea/Vomitin-No Nausea/No Vomiting Muscle Tremors: 4-Moderate,w/Arms Extend Anxiety: 4-Mod. Anxious/Guarded Agitation: 4-Moderately Restless Paroxysmal Sweats: 3 Orientation: 0-Oriented Tacttile Disturbances: 0-None Auditory Disturbances: 0-None Visual Disturbances: 0-None Headache: 0-None Present CIWA-Ar Total Score: 15 Admission ROS BHS - HPI Chief Complaint: Withdrawal sx. Allergies/Adverse Reactions: Allergies Allergy/AdvReac Type Severity Reaction Status Date / Time enalapril [Enalapril] Allergy Swelling Verified 10/23/16 18:08 haloperidol [From Haldol] Allergy Verified 10/23/16 18:08 haloperidol lactate Allergy Verified 10/23/16 18:08 [From Haldol] levofloxacin [From Levaquin] Allergy Hives Verified 10/23/16 18:08 ,Enalapril, Haldol, Levaquin Allergy Severe Hives Uncoded 10/23/16 18:08 History of Present Illness: 61 y/o man with a long hx. of alcoholism is admitted for detox. Pt. has been in previous detox, denies significant sobriety. He was here three times so far this year, each time relapsing within days of d/c. It appears that his mental illness makes it difficult for him to remain sober. Exam Limitations: No Limitations - Ebola screening Have you traveled outside of the country in the last 21 days: No Have you had contact with anyone from an Ebola affected area: No Have you been sick,other than usual withdrawal symptoms: No - Review of Systems Constitutional: Diaphoresis EENT: reports: No Symptoms Reported Respiratory: reports: No Symptoms reported Cardiac: reports: No Symptoms Reported GI: reports: Nausea, Abdominal cramping : reports: No Symptoms Reported Musculoskeletal: reports: Back Pain Integumentary: reports: Sweating Neuro: reports: Tremors Endocrine: reports: No Symptoms Reported Hematology: reports: No Symptoms Reported Psychiatric: reports: No Sypmtoms Reported Other Systems: Reviewed and Negative Patient History - Patient Medical History Hx Anemia: No Hx Asthma: No Hx Chronic Obstructive Pulmonary Disease (COPD): No Hx Cancer: No Hx Cardiac Disorders: No Hx Congestive Heart Failure: No Hx Hypertension: Yes Hx Hypercholesterolemia: Yes (ON MEDS) Hx Pacemaker: No HX Cerebrovascular Accident: No Hx Seizures: No Hx Dementia: No Hx Diabetes: No Hx Gastrointestinal Disorders: No Hx Liver Disease: No Hx Genitourinary Disorders: No Hx Sexually Transmitted Disorders: No Hx Renal Disease (ESRD): No Hx Thyroid Disease: No Hx Human Immunodeficiency Virus (HIV): No Hx Hepatitis C: No Hx Depression: Yes Hx Suicide Attempt: No Hx Bipolar Disorder: No Hx Schizophrenia: Yes (schizoaffective D/O) - Patient Surgical History Past Surgical History: Yes Hx Neurologic Surgery: No Hx Cataract Extraction: No Hx Cardiac Surgery: No Hx Lung Surgery: No Hx Breast Surgery: No Hx Breast Biopsy: No Hx Abdominal Surgery: No Hx Appendectomy: No Hx Cholecystectomy: No Hx Genitourinary Surgery: No Hx Section: No Hx Orthopedic Surgery: Yes (right hip replacement in 04/2003 at [facility] for avascular necrosis) Other Surgical History: Surgery to repair Right Fibula fracture: 1996. Anesthesia Reaction: No - PPD History Previous Implant?: Yes Documented Results: Positive w/o proof (+ in April 2004) Implanted On Prior [facility] Admission?: No PPD to be Administered?: No - Smoking Cessation Smoking history: Current every day smoker Have you smoked in the past 12 months: Yes Aproximately how many cigarettes per day: 10 Cigars Per Day: 0 Hx Chewing Tobacco Use: No Initiated information on smoking cessation: Yes 'Breaking Loose' booklet given: 12/02/16 - Substance & Tx. History Hx Alcohol Use: Yes Hx Substance Use: Yes Substance Use Type: Alcohol, Cocaine Hx Substance Use Treatment: Yes ([facility] 10/2016) - Substances Abused Alcohol Route: Oral Frequency: 3-6 times per week Amount used: vodka 2 pints Age of first use: 15 Date of Last Use: 11/30/16 Cocaine Route: Inhalation Frequency: 3-6 times per week Amount used: $50.00 Age of first use: 20 Date of Last Use: 12/01/16 Family Disease History - Family Disease History Family Disease History: Heart Disease: Father (), Respiratory: Mother ( ), Other: Father, Mother Admission Physical Exam BHS - Vital Signs Vital Signs: Vital Signs - 24 hr 12/02/16 18:02 Temperature 97.3 F L Pulse Rate 88 Respiratory 18 Rate Blood Pressure 140/87 - Physical General Appearance: Yes: Tremorous, Sweating, Anxious HEENTM: Yes: Within Normal Limits Respiratory: Yes: Chest Non-Tender, Lungs Clear, Normal Breath Sounds Neck: Yes: Supple Breast: Yes: Breast Exam Deferred Cardiology: Yes: Regular Rhythm, Regular Rate, S1, S2 Abdominal: Yes: Normal Bowel Sounds, Non Tender, Soft Genitourinary: Yes: Within Normal Limits Back: Yes: Within Normal Limits Musculoskeletal: Yes: Within Normal Limits Extremities: Yes: Tremors Neurological: Yes: Fully Oriented, Alert Integumentary: Yes: Diaphoresis Lymphatic: Yes: Within Normal Limits - Diagnostic (1) Alcohol dependence with uncomplicated withdrawal Current Visit: Yes Status: Acute (2) Cocaine dependence, uncomplicated Current Visit: Yes Status: Acute (3) Nicotine dependence Current Visit: Yes Status: Acute Qualifiers: Nicotine product type: cigarettes Substance use status: in withdrawal Qualified Code(s): F17.213 - Nicotine dependence, cigarettes, with withdrawal; F17.213 - Nicotine dependence, cigarettes, with withdrawal (4) Schizoaffective disorder Current Visit: Yes Status: Suspected Qualifiers: Schizoaffective disorder type: depressive Qualified Code(s): F25.1 - Schizoaffective disorder, depressive type; F25.1 - Schizoaffective disorder, depressive type; F25.1 - Schizoaffective disorder, depressive type; F25.1 - Schizoaffective disorder, depressive type Cleared for Admission [facility] - Detox or Rehab [facility] Level of Care: Medically Managed Detox Regimen/Protocol: Librium [facility] Breath Alcohol Content Breath Alcohol Content: 0 Urine Drug Screen - Results Drug Screen Negative: No Urine Drug Screen Results: JESUS ALBERTO-Cocaine
[2016-12-02] MEDS: THIAMINE HCL 100 MG TABLET (FP) PO SCH (22:47)
[2016-12-02] MEDS: chlordiazePOXIDE HCL 25 MG CAPSULE PO SCH (22:48)
[2016-12-02] MEDS: ATORVASTATIN CA 10 MG TABLET (FP) PO SCH (22:48)
[2016-12-02] MEDS: OLANZapine 10 MG TABLET PO SCH (22:49)
[2016-12-02] MEDS: traZODone HCL 50 MG TABLET (FP) PO SCH (22:49)
[2016-12-02] MEDS: LIDOCAINE 5% TOPICAL PATCH TP SCH (22:50)
[2016-12-02] MEDS: LIDOCAINE PATCH REMOVAL MC SCH (22:50)
[2016-12-02 23:06] LABS: URINE APPEARANCE SLCLOUDY; URINE BILIRUBIN NEGATIVE (NEGATIVE); URINE BLOOD NEGATIVE (NEGATIVE); URINE COLOR AMBER; URINE GLUCOSE (UA) NEGATIVE (NEGATIVE); URINE KETONE NEGATIVE (NEGATIVE); URINE NITRITE NEGATIVE (NEGATIVE); URINE PROTEIN NEGATIVE (NEGATIVE)
[2016-12-03] MEDS: chlordiazePOXIDE HCL 25 MG CAPSULE PO SCH ×4 (05:44→22:30)
[2016-12-03 09:47] LABS: MCH 33.3 pg (25.7-33.7); MCHC 34.3 g/dl (32.0-35.9); MEAN CELL VOLUME 97.1 fl (80-96); MEAN PLT VOLUME 8.2 fl (7.5-11.1); PLATELET COUNT 221 K/MM3 (134-434); RDW 13.6 % (11.9-15.9); WHITE BLOOD COUNT 3.5 K/mm3 (4.0-10.0)
--- NOTE | 2016-12-03 10:02 | CONSULT ---
[facility] Psychiatric Consult - Data Date of interview: 12/03/16 Admission source: Self-referred Identifying data: Mr Noonan is a 61 years old single Black male, unemployed on public assistance, domiciled Substance Abuse History: Reports history of alcohol and cocaine use. Refer to addiction counselor's note for further information Medical History: Significant for hypertension, hypercholesterolemia, arthritis at L3-L4 level, and history of orthosurgery for right hip replacement due to avascular necrosis (2004) and fracture right fibula in 1996. Smokes 10 cigarettes daily Psychiatric History: Patient's history has not significantly changed since his last admission to rehab last month. Reports that his first psychiatric contact was in 2003 when he was admited to [facility] in [place] because of mood dysregulation, thought disorder, auditory hallucinations and degradation of general functioning. Reports that he was diagnosed with Schizoaffective Disorder and treated with psychotropic medication. Reports multiple subsequent admissions to [facility], [facility], [facility] and [facility] in [place]. Most recent admission was in Sep for AH, SI, mood dysregulation to [facility]. He was discharged on Zyprexa 10 mg po BID, Wellbutin 100 mg po daily and Trazadone 50 mg po HS. Reports receiving OPD care at the [facility] in the [place]. Denies history of suicidal attempt. At present, reports feeling depressed and sleeping poorly without medications. Denies experiencing psychotic, manic symptoms, SI/HI Physical/Sexual Abuse/Trauma History: Patient denies history of sexual or physical abuse. Reportedly patient is a [employer] (3 years of active duty ) from [id number]. He served in [employer] [facility] and [place] in the . Honorably discharged (self-report). Additional Comment: Reports history of several incarcerations over the years including 3 felony convictions. No parole/probation Mental Status Exam - Mental Status Exam Alert and Oriented to: Time, Place, Person Cognitive Function: Fair Patient Appearance: Well Groomed Mood: Depressed Affect: Appropriate Patient Behavior: Cooperative Speech Pattern: Clear Voice Loudness: Normal Thought Process: Intact, Goal Oriented Hallucinations: Denies Suicidal Ideation: Denies Homicidal Ideation: Denies Insight/Judgement: Poor Sleep: Poorly Appetite: Poor Muscle strength/Tone: Normal Gait/Station: Normal Psychiatric Findings - Problem List ([place] 1, 2,3) (1) Schizoaffective disorder Current Visit: Yes Status: Suspected Qualifiers: Schizoaffective disorder type: depressive Qualified Code(s): F25.1 - Schizoaffective disorder, depressive type; F25.1 - Schizoaffective disorder, depressive type; F25.1 - Schizoaffective disorder, depressive type; F25.1 - Schizoaffective disorder, depressive type (2) Alcohol dependence with uncomplicated withdrawal Current Visit: Yes Status: Acute (3) Cocaine dependence, uncomplicated Current Visit: Yes Status: Acute (4) Nicotine dependence Current Visit: Yes Status: Acute Qualifiers: Nicotine product type: cigarettes Substance use status: in withdrawal Qualified Code(s): F17.213 - Nicotine dependence, cigarettes, with withdrawal; F17.213 - Nicotine dependence, cigarettes, with withdrawal (5) Arthritis Current Visit: No Status: Chronic (6) Hypercholesteremia Current Visit: No Status: Chronic (7) Hypertension Current Visit: No Status: Chronic Qualifiers: Hypertension type: essential hypertension Qualified Code(s): I10 - Essential (primary) hypertension; I10 - Essential (primary) hypertension; I10 - Essential (primary) hypertension (8) Spinal stenosis, lumbosacral region Current Visit: No Status: Chronic (9) Walker as ambulation aid Current Visit: No Status: Chronic - Initial Treatment Plan Initial Treatment Plan: 1) Continue Wellbutrin 100 mg po daily, Zyprexa 10 mg po BID and Trazadone 50 mg po HS. 2) Continue inpatient detoxification
[2016-12-03 10:17] LABS: ALBUMIN 3.4 g/dl (3.4-5.0); ALK PHOS 73 U/L (45-117); ANION GAP 9 (8-16); BILIRUBIN,TOTAL 0.8 mg/dL (0.2-1.0); CALCIUM 8.5 mg/dL (8.5-10.1); CO2 26 mmol/L (21-32); CREATININE 1.4 mg/dL (0.7-1.3); GLUCOSE,RANDOM 140 mg/dL (74-106); SGOT/AST 9 U/L (15-37); SGPT/ALT 21 U/L (12-78); TOT PROT 7.1 g/dl (6.4-8.2)
[2016-12-03] MEDS: LIDOCAINE 5% TOPICAL PATCH TP SCH (10:59)
[2016-12-03] MEDS: amLODIPine BESYLATE 10 MG TABLET (FP) PO SCH (10:59)
[2016-12-03] MEDS: PRENATAL VITAMINS W/ FOLIC ACID TABLET (FP) PO SCH (10:59)
[2016-12-03] MEDS: OLANZapine 10 MG TABLET PO SCH ×2 (10:59→22:30)
[2016-12-03] MEDS: ASPIRIN COATED 81 MG TABLET.EC PO SCH (10:59)
[2016-12-03] MEDS: NICOTINE POLACRILEX 4 MG GUM BC PRN ×3 (11:01→17:30)
[2016-12-03 14:14] LABS: URINE LEUK ESTERASE Negative (NEGATIVE)
[2016-12-03] MEDS: ATENOLOL 25 MG TABLET (FP) PO SCH (14:58)
[2016-12-03] MEDS: buPROPion HCL 100 MG TABLET PO SCH (14:59)
--- NOTE | 2016-12-03 17:36 | PN ---
S CIWA - CIWA Score Nausea/Vomitin Muscle Tremors: 4-Moderate,w/Arms Extend Anxiety: 4-Mod. Anxious/Guarded Agitation: 4-Moderately Restless Paroxysmal Sweats: 3 Orientation: 0-Oriented Tacttile Disturbances: 0-None Auditory Disturbances: 0-None Visual Disturbances: 0-None Headache: 2-Mild CIWA-Ar Total Score: 20 BHS Progress Note (SOAP) Subjective: Sweating, anxious, tremor, interrupted sleep, poor appetite, fatigue Objective: 12/03/16 17:32 Last Vital Signs Temp Pulse Resp BP Pulse Ox 96.1 F L 92 H 18 145/82 12/03/16 13:22 12/03/16 13:22 12/03/16 13:22 12/03/16 13:22 Laboratory Tests 12/02/16 12/03/16 12/03/16 22:45 07:30 07:30 WBC 3.5 L RBC 3.92 L Hgb 13.0 Hct 38.1 MCV 97.1 H MCH 33.3 MCHC 34.3 RDW 13.6 Plt Count 221 MPV 8.2 Sodium 140 Potassium 3.4 L Chloride 105 Carbon Dioxide 26 Anion Gap 9 BUN 23 H Creatinine 1.4 H Creat Clearance w eGFR 51.87 Random Glucose 140 H Calcium 8.5 Total Bilirubin 0.8 D AST 9 L D ALT 21 Alkaline Phosphatase 73 Total Protein 7.1 Albumin 3.4 Urine Color Adina Urine Appearance Slcloudy Urine pH 6.0 Ur Specific [place] 1.020 Urine Protein Negative Urine Glucose (UA) Negative Urine Ketones Negative Urine Blood Negative Urine Nitrite Negative Urine Bilirubin Negative Urine Urobilinogen 2.0 Ur Leukocyte Esterase Negative RPR Titer 12/03/16 07:30 WBC RBC Hgb Hct MCV MCH MCHC RDW Plt Count MPV Sodium Potassium Chloride Carbon Dioxide Anion Gap BUN Creatinine Creat Clearance w eGFR Random Glucose Calcium Total Bilirubin AST ALT Alkaline Phosphatase Total Protein Albumin Urine Color Urine Appearance Urine pH Ur Specific [place] Urine Protein Urine Glucose (UA) Urine Ketones Urine Blood Urine Nitrite Urine Bilirubin Urine Urobilinogen Ur Leukocyte Esterase RPR Titer Nonreactive Labs noted: K 3.4, BUN 23, serum creatinine 1.4, serum glucose 140 Assessment: 12/03/16 17:33 Withdrawal symptoms Noted with hypokalemia, prerenal azotemia and hyperglycemia Plan: Continue detox Hypokalemia: K Dur 40 meq PO x 1 dose, repeat serum K level in AM Prerenal azotemia: encouraged to drink lots of water, repeat BMP Hyperglycemia:repeat fasting glucose, send HbA1c
[2016-12-03] MEDS ORDERED: POTASSIUM CHLORIDE TABS 20 MEQ TABLET.ER (FP) PO ONE (18:00)
[2016-12-03] MEDS: THIAMINE HCL 100 MG TABLET (FP) PO SCH (22:29)
[2016-12-03] MEDS: LIDOCAINE PATCH REMOVAL MC SCH (22:30)
[2016-12-03] MEDS: ATORVASTATIN CA 10 MG TABLET (FP) PO SCH (22:30)
[2016-12-03] MEDS: traZODone HCL 50 MG TABLET (FP) PO SCH (22:30)
[2016-12-04] MEDS: chlordiazePOXIDE HCL 25 MG CAPSULE PO SCH ×3 (05:51→17:27)
[2016-12-04 10:01] LABS: ANION GAP 5 (8-16); CALCIUM 8.6 mg/dL (8.5-10.1); CO2 28 mmol/L (21-32); GLUCOSE,RANDOM 121 mg/dL (74-106)
[2016-12-04 10:02] LABS: CREATININE 1.2 mg/dL (0.7-1.3)
--- NOTE | 2016-12-04 10:18 | EKG ---
Test Reason : Blood Pressure : / mmHG Vent. Rate : 069 BPM Atrial Rate : 069 BPM P-R Int : 176 ms QRS Dur : 084 ms QT Int : 424 ms P-R-T Axes : 062 -25 006 degrees QTc Int : 454 ms NORMAL SINUS RHYTHM NORMAL ECG WHEN COMPARED WITH ECG OF 23-OCT-2016 22:19, T WAVE VARIATION Confirmed by TIKI LUCIANO MD ([id number]) on 12/04/2016 10:18:04 AM Referred By: Confirmed By:TIKI LUCIANO MD
[2016-12-04] MEDS: OLANZapine 10 MG TABLET PO SCH ×2 (10:28→22:30)
[2016-12-04] MEDS: amLODIPine BESYLATE 10 MG TABLET (FP) PO SCH (10:28)
[2016-12-04] MEDS: PRENATAL VITAMINS W/ FOLIC ACID TABLET (FP) PO SCH (10:28)
[2016-12-04] MEDS: ATENOLOL 25 MG TABLET (FP) PO SCH (10:28)
[2016-12-04] MEDS: ASPIRIN COATED 81 MG TABLET.EC PO SCH (10:28)
[2016-12-04] MEDS: LIDOCAINE 5% TOPICAL PATCH TP SCH (10:28)
[2016-12-04] MEDS: buPROPion HCL 100 MG TABLET PO SCH (10:28)
[2016-12-04] MEDS: NICOTINE POLACRILEX 4 MG GUM BC PRN ×3 (10:29→20:10)
--- NOTE | 2016-12-04 12:39 | PN ---
[facility] CIWA - CIWA Score Nausea/Vomitin-No Nausea/No Vomiting Muscle Tremors: None Anxiety: 4-Mod. Anxious/Guarded Agitation: 3 Paroxysmal Sweats: 3 Orientation: 2-Disoriented Date<2 days Tacttile Disturbances: 2-Mild Itch/Numbness/Burn Auditory Disturbances: 0-None Visual Disturbances: 2-Mild Sensitivity Headache: 0-None Present CIWA-Ar Total Score: 16 S Progress Note (SOAP) Subjective: Fatigue, Sweating, Body Aches, Anxious. Objective: PT. A & O X 2 (DISORIENTED ABOUT DAY/ DATE). NO ACUTE DISTRESS. 12/04/16 12:35 Vital Signs Temperature 97.2 F L 12/04/16 09:13 Pulse Rate 72 12/04/16 09:13 Respiratory Rate 20 12/04/16 09:13 Blood Pressure 128/72 12/04/16 09:13 O2 Sat by Pulse Oximetry (%) Laboratory Tests 12/02/16 12/03/16 12/03/16 22:45 07:30 07:30 WBC 3.5 L RBC 3.92 L Hgb 13.0 Hct 38.1 MCV 97.1 H MCH 33.3 MCHC 34.3 RDW 13.6 Plt Count 221 MPV 8.2 Sodium 140 Potassium 3.4 L Chloride 105 Carbon Dioxide 26 Anion Gap 9 BUN 23 H Creatinine 1.4 H Creat Clearance w eGFR 51.87 Random Glucose 140 H Hemoglobin A1c % Calcium 8.5 Total Bilirubin 0.8 D AST 9 L D ALT 21 Alkaline Phosphatase 73 Total Protein 7.1 Albumin 3.4 Urine Color Adina Urine Appearance Slcloudy Urine pH 6.0 Ur Specific [place] 1.020 Urine Protein Negative Urine Glucose (UA) Negative Urine Ketones Negative Urine Blood Negative Urine Nitrite Negative Urine Bilirubin Negative Urine Urobilinogen 2.0 Ur Leukocyte Esterase Negative RPR Titer 12/03/16 12/04/16 12/04/16 07:30 07:00 07:00 WBC RBC Hgb Hct MCV MCH MCHC RDW Plt Count MPV Sodium 141 Potassium 4.0 Chloride 108 H Carbon Dioxide 28 Anion Gap 5 L BUN 18 D Creatinine 1.2 Creat Clearance w eGFR Random Glucose 121 H Hemoglobin A1c % 6.6 H Calcium 8.6 Total Bilirubin AST ALT Alkaline Phosphatase Total Protein Albumin Urine Color Urine Appearance Urine pH Ur Specific [place] Urine Protein Urine Glucose (UA) Urine Ketones Urine Blood Urine Nitrite Urine Bilirubin Urine Urobilinogen Ur Leukocyte Esterase RPR Titer Nonreactive LABS NOTED. RESULTS OF HGB A1C AND REPEAT BMP NOTED. 12/04/16 12:39 Assessment: 12/04/16 12:35 WITHDRAWAL SYMPTOMS. LEUKOPENIA. Plan: CONTINUE DETOX.
[2016-12-04] MEDS: ATORVASTATIN CA 10 MG TABLET (FP) PO SCH (22:30)
[2016-12-04] MEDS: THIAMINE HCL 100 MG TABLET (FP) PO SCH (22:30)
[2016-12-04] MEDS: chlordiazePOXIDE 5 MG CAPSULE PO SCH (22:30)
[2016-12-04] MEDS: traZODone HCL 50 MG TABLET (FP) PO SCH (22:31)
[2016-12-04] MEDS: LIDOCAINE PATCH REMOVAL MC SCH (22:31)
[2016-12-05] MEDS: chlordiazePOXIDE 5 MG CAPSULE PO SCH ×3 (05:43→17:35)
[2016-12-05] MEDS: NICOTINE POLACRILEX 4 MG GUM BC PRN ×5 (05:46→22:41)
[2016-12-05] MEDS: amLODIPine BESYLATE 10 MG TABLET (FP) PO SCH (10:38)
[2016-12-05] MEDS: ASPIRIN COATED 81 MG TABLET.EC PO SCH (10:38)
[2016-12-05] MEDS: OLANZapine 10 MG TABLET PO SCH ×2 (10:38→22:38)
[2016-12-05] MEDS: buPROPion HCL 100 MG TABLET PO SCH (10:38)
[2016-12-05] MEDS: ATENOLOL 25 MG TABLET (FP) PO SCH (10:38)
[2016-12-05] MEDS: PRENATAL VITAMINS W/ FOLIC ACID TABLET (FP) PO SCH (10:38)
[2016-12-05] MEDS: LIDOCAINE 5% TOPICAL PATCH TP SCH (10:38)
[2016-12-05] MEDS: AMMONIUM LACTATE 12% LOTION 225 GM BOTTLE TP SCH ×2 (10:38→22:37)
--- NOTE | 2016-12-05 16:03 | PN ---
[facility] Progress Note (SOAP) Subjective: Fatigue, body aches. Objective: PT. A & O X 3, OBSERVED AMBULATING ON UNIT WITH ASSISTANCE OF A WALKER. NO ACUTE DISTRESS. 12/05/16 16:02 Vital Signs Temperature 98.0 F 12/05/16 13:46 Pulse Rate 82 12/05/16 13:46 Respiratory Rate 20 12/05/16 13:46 Blood Pressure 127/68 12/05/16 13:46 O2 Sat by Pulse Oximetry (%) Laboratory Tests 12/02/16 12/03/16 12/03/16 22:45 07:30 07:30 WBC 3.5 L RBC 3.92 L Hgb 13.0 Hct 38.1 MCV 97.1 H MCH 33.3 MCHC 34.3 RDW 13.6 Plt Count 221 MPV 8.2 Sodium 140 Potassium 3.4 L Chloride 105 Carbon Dioxide 26 Anion Gap 9 BUN 23 H Creatinine 1.4 H Creat Clearance w eGFR 51.87 Random Glucose 140 H Hemoglobin A1c % Calcium 8.5 Total Bilirubin 0.8 D AST 9 L D ALT 21 Alkaline Phosphatase 73 Total Protein 7.1 Albumin 3.4 Urine Color Adina Urine Appearance Slcloudy Urine pH 6.0 Ur Specific [place] 1.020 Urine Protein Negative Urine Glucose (UA) Negative Urine Ketones Negative Urine Blood Negative Urine Nitrite Negative Urine Bilirubin Negative Urine Urobilinogen 2.0 Ur Leukocyte Esterase Negative RPR Titer 12/03/16 12/04/16 12/04/16 07:30 07:00 07:00 WBC RBC Hgb Hct MCV MCH MCHC RDW Plt Count MPV Sodium 141 Potassium 4.0 Chloride 108 H Carbon Dioxide 28 Anion Gap 5 L BUN 18 D Creatinine 1.2 Creat Clearance w eGFR Random Glucose 121 H Hemoglobin A1c % 6.6 H Calcium 8.6 Total Bilirubin AST ALT Alkaline Phosphatase Total Protein Albumin Urine Color Urine Appearance Urine pH Ur Specific [place] Urine Protein Urine Glucose (UA) Urine Ketones Urine Blood Urine Nitrite Urine Bilirubin Urine Urobilinogen Ur Leukocyte Esterase RPR Titer Nonreactive LABS NOTED. Assessment: 12/05/16 16:07 WITHDRAWAL SYMPTOMS. Plan: CONTINUE DETOX. COPIES OF ALL LABWORK (INCLUDING HGB A1C AND RANDOM GLUCOSE LEVELS) DRAWN WHILE ADMITTED FOR DETOX GIVEN TO PATIENT. PATIENT ADVISED TO FOLLOW-UP WITH ANESTHESIOLOGIST DR. CHINO AT [facility] AFTER DISCHARGE FROM DETOX FOR GENERAL MEDICAL ASSESSMENT AND FOR ELEVATED HGB A1C AND RANDOM GLUCOSE LEVELS WHILE ADMITTED FOR DETOX.
[2016-12-05] MEDS: THIAMINE HCL 100 MG TABLET (FP) PO SCH (22:36)
[2016-12-05] MEDS: LIDOCAINE PATCH REMOVAL MC SCH (22:37)
[2016-12-05] MEDS: traZODone HCL 50 MG TABLET (FP) PO SCH (22:37)
[2016-12-05] MEDS: chlordiazePOXIDE HCL 10 MG CAPSULE PO SCH (22:37)
[2016-12-05] MEDS: ATORVASTATIN CA 10 MG TABLET (FP) PO SCH (22:38)
[2016-12-06] MEDS: NICOTINE POLACRILEX 4 MG GUM BC PRN ×2 (06:08→10:34)
[2016-12-06] MEDS: chlordiazePOXIDE HCL 10 MG CAPSULE PO SCH ×2 (06:08→11:15)
--- NOTE | 2016-12-06 09:28 | DS ---
[facility] Detox Discharge Summary Admission Date: 12/02/16 Discharge Date: 12/06/16 - History Present History: Alcohol Dependence, Cocaine Dependence Additional Comments: DETOX COMPLETED.ALERT O X 3. NAD. PT WILL FOLLOW UP WITH PCP/PMD DR CRUZ AT [facility] FOR MEDICAL MANAGEMENT OF COMORBID CONDITIONS. Pertinent Past History: HTN HYPERCHOLESTEROLEMIA TOTAL HIP REPLACEMENT ARTHRITIS WALKER AMBULATORY AID HX SPINAL STENOSIS,LUMBOSACRAL REGION - Physical Exam Results Vital Signs: Vital Signs Temperature 96.7 F L 12/06/16 06:36 Pulse Rate 67 12/06/16 06:36 Respiratory Rate 20 12/06/16 06:36 Blood Pressure 154/95 12/06/16 06:36 O2 Sat by Pulse Oximetry (%) Pertinent Admission Physical Exam Findings: WITHDRAWAL SX Laboratory Last Values WBC 3.5 K/mm3 (4.0-10.0) L 12/03/16 07:30 RBC 3.92 M/mm3 (4.00-5.60) L 12/03/16 07:30 Hgb 13.0 GM/dL (11.7-16.9) 12/03/16 07:30 Hct 38.1 % (35.4-49) 12/03/16 07:30 MCV 97.1 fl (80-96) H 12/03/16 07:30 MCH 33.3 pg (25.7-33.7) 12/03/16 07:30 MCHC 34.3 g/dl (32.0-35.9) 12/03/16 07:30 RDW 13.6 % (11.9-15.9) 12/03/16 07:30 Plt Count 221 K/MM3 (134-434) 12/03/16 07:30 MPV 8.2 fl (7.5-11.1) 12/03/16 07:30 Sodium 141 mmol/L (136-145) 12/04/16 07:00 Potassium 4.0 mmol/L (3.5-5.1) 12/04/16 07:00 Chloride 108 mmol/L (98-107) H 12/04/16 07:00 Carbon Dioxide 28 mmol/L (21-32) 12/04/16 07:00 Anion Gap 5 (8-16) L 12/04/16 07:00 BUN 18 mg/dL (7-18) D 12/04/16 07:00 Creatinine 1.2 mg/dL (0.7-1.3) 12/04/16 07:00 Creat Clearance w eGFR 51.87 (>60) 12/03/16 07:30 Random Glucose 121 mg/dL (74-106) H 12/04/16 07:00 Hemoglobin A1c % 6.6 % (4.8-6.0) H 12/04/16 07:00 Calcium 8.6 mg/dL (8.5-10.1) 12/04/16 07:00 Total Bilirubin 0.8 mg/dL (0.2-1.0) D 12/03/16 07:30 AST 9 U/L (15-37) L D 12/03/16 07:30 ALT 21 U/L (12-78) 12/03/16 07:30 Alkaline Phosphatase 73 U/L (45-117) 12/03/16 07:30 Total Protein 7.1 g/dl (6.4-8.2) 12/03/16 07:30 Albumin 3.4 g/dl (3.4-5.0) 12/03/16 07:30 Urine Color Adina 12/02/16 22:45 Urine Appearance Slcloudy 12/02/16 22:45 Urine pH 6.0 (5.0-8.0) 12/02/16 22:45 Ur Specific [place] 1.020 (1.005-1.025) 12/02/16 22:45 Urine Protein Negative (NEGATIVE) 12/02/16 22:45 Urine Glucose (UA) Negative (NEGATIVE) 12/02/16 22:45 Urine Ketones Negative (NEGATIVE) 12/02/16 22:45 Urine Blood Negative (NEGATIVE) 12/02/16 22:45 Urine Nitrite Negative (NEGATIVE) 12/02/16 22:45 Urine Bilirubin Negative (NEGATIVE) 12/02/16 22:45 Urine Urobilinogen 2.0 mg/dL (0.2-1.0) 12/02/16 22:45 Ur Leukocyte Esterase Negative (NEGATIVE) 12/02/16 22:45 RPR Titer Nonreactive (NONREACTIVE) 12/03/16 07:30 - Treatment Hospital Course: Detox Protocol Followed, Detoxed Safely, Responded well, Discharged Condition Good, Rehab Referral Accepted Patient has Accepted a Rehab Referral to: [facility] - Medication Discharge Medications: Ambulatory Orders Bupropion HCl [Wellbutrin -] 100 mg PO DAILY 09/03/16 Amlodipine Besylate [Norvasc -] 10 mg PO DAILY #30 tab 09/14/16 Aspirin Coated [Ecotrin -] 81 mg PO DAILY #30 tab 09/14/16 Atenolol [Tenormin -] 25 mg PO DAILY #30 tab 09/14/16 Atorvastatin Ca [Lipitor] 10 mg PO HS #30 tablet 09/14/16 Trazodone HCl [Desyrel -] 50 mg PO HS #30 tablet 10/30/16 Hydrochlorothiazide 25 mg PO DAILY 12/02/16 Bupropion HCl [Wellbutrin -] 100 mg PO DAILY #30 tablet 12/03/16 Olanzapine [Zyprexa] 10 mg PO BID #60 tablet 12/03/16 Trazodone HCl [Desyrel -] 50 mg PO HS #30 tablet 12/03/16 - Diagnosis (1) Alcohol dependence with uncomplicated withdrawal Status: Acute (2) Cocaine dependence, uncomplicated Status: Acute (3) Nicotine dependence Status: Acute Qualifiers: Nicotine product type: cigarettes Substance use status: in withdrawal Qualified Code(s): F17.213 - Nicotine dependence, cigarettes, with withdrawal; F17.213 - Nicotine dependence, cigarettes, with withdrawal (4) Arthritis Status: Chronic (5) Hypercholesteremia Status: Chronic (6) Hypertension Status: Chronic Qualifiers: Hypertension type: essential hypertension Qualified Code(s): I10 - Essential (primary) hypertension; I10 - Essential (primary) hypertension; I10 - Essential (primary) hypertension (7) Spinal stenosis, lumbosacral region Status: Chronic (8) Walker as ambulation aid Status: Chronic - AMA Did Patient Leave Against Medical Advice: No
[2016-12-06 09:56] VITALS: BP 150/87; PULSE 82; TEMP 97.7
[2016-12-06] MEDS: OLANZapine 10 MG TABLET PO SCH (10:32)
[2016-12-06] MEDS: ATENOLOL 25 MG TABLET (FP) PO SCH (10:32)
[2016-12-06] MEDS: AMMONIUM LACTATE 12% LOTION 225 GM BOTTLE TP SCH (10:33)
[2016-12-06] MEDS: PRENATAL VITAMINS W/ FOLIC ACID TABLET (FP) PO SCH (10:33)
[2016-12-06] MEDS: LIDOCAINE 5% TOPICAL PATCH TP SCH (10:33)
[2016-12-06] MEDS: buPROPion HCL 100 MG TABLET PO SCH (10:33)
[2016-12-06] MEDS: amLODIPine BESYLATE 10 MG TABLET (FP) PO SCH (10:33)
[2016-12-06] MEDS: ASPIRIN COATED 81 MG TABLET.EC PO SCH (10:33)
== END 2016-12-06 11:41 | disposition home or self-care (01) | DRG 774 ==
LOC: YASAS 16:42 → Y3N 19:33
PROVIDERS: ADMIT Internal Medicine; ATTEND Internal Medicine
DX: F10.230 Alcohol dependence with withdrawal, uncomplicated (principal); F14.20 Cocaine dependence, uncomplicated; F17.213 Nicotine dependence, cigarettes, with withdrawal; F25.9 Schizoaffective disorder, unspecified; I10 Essential (primary) hypertension; E78.00 Pure hypercholesterolemia, unspecified; E87.6 Hypokalemia; M48.07 Spinal stenosis, lumbosacral region; R79.89 Other specified abnormal findings of blood chemistry; R73.9 Hyperglycemia, unspecified; M19.90 Unspecified osteoarthritis, unspecified site; D72.819 Decreased white blood cell count, unspecified; R26.2 Difficulty in walking, not elsewhere classified; Z99.89 Dependence on other enabling machines and devices; Z88.1 Allergy status to other antibiotic agents; Z88.8 Allergy status to other drugs, medicaments and biological substances
CPT/HCPCS: 36415; 80048; 80053; 81003; 83036; 85027; 86593; 93005; 93010

== ENCOUNTER 2017-01-26 15:03 | Inpatient (IN) | payer OTHER ==
[2017-01-26 16:15] VITALS: BMI 30.1
--- NOTE | 2017-01-26 17:53 | HP ---
CIWA Score - CIWA Score Nausea/Vomitin Muscle Tremors: 2 Anxiety: 2 Agitation: 1-Slight > Activity Paroxysmal Sweats: 2 Orientation: 0-Oriented Tacttile Disturbances: 0-None Auditory Disturbances: 1-Very Mild Visual Disturbances: 1-Very Mild Sensitivity Headache: 2-Mild CIWA-Ar Total Score: 13 Admission ROS S - HPI Chief Complaint: WITHDRAWAL SYMPTOMS Allergies/Adverse Reactions: Allergies Allergy/AdvReac Type Severity Reaction Status Date / Time enalapril [Enalapril] Allergy Swelling Verified 12/02/16 21:11 haloperidol [From Haldol] Allergy Verified 12/02/16 21:11 haloperidol lactate Allergy Verified 12/02/16 21:11 [From Haldol] levofloxacin [From Levaquin] Allergy Hives Verified 12/02/16 21:11 ,Enalapril, Haldol, Levaquin Allergy Severe Hives Uncoded 12/02/16 21:11 History of Present Illness: 61 Y.O. MAN WITH AN EXTENSIVE HISTORY OF ALCOHOL AND COCAINE DEPENDENCE IS HERE SEEKING DETOX. HE HAS HAD MULTIPLE ADMISSIONS HERE FOR DETOX WITH THE LAST BEING IN 11/2016. LONGEST PERIOD CLEAN AND SOBER. Exam Limitations: No Limitations - Ebola screening Have you traveled outside of the country in the last 21 days: No Have you had contact with anyone from an Ebola affected area: No Have you been sick,other than usual withdrawal symptoms: No - Review of Systems Constitutional: Unintentional Wgt. Loss EENT: reports: Blurred Vision Respiratory: reports: Cough Cardiac: reports: No Symptoms Reported GI: reports: Constipated : reports: No Symptoms Reported Musculoskeletal: reports: Back Pain (D/T SPNIAL STENOSIS) Integumentary: reports: No Symptoms Reported Neuro: reports: No Symptoms reported Endocrine: reports: No Symptoms Reported Hematology: reports: Anemia (ANDREA) Psychiatric: reports: Orientated x3, Depressed, other (SCHIZO-AFFECTIVE) Other Systems: Reviewed and Negative Patient History - Patient Medical History Hx Anemia: No Hx Asthma: No Hx Chronic Obstructive Pulmonary Disease (COPD): No Hx Cancer: No Hx Cardiac Disorders: No Hx Congestive Heart Failure: No Hx Hypertension: Yes (non compliant with meds.) Hx Hypercholesterolemia: Yes (ON MEDS) Hx Pacemaker: No HX Cerebrovascular Accident: No Hx Seizures: No Hx Dementia: No Hx Diabetes: No Hx Gastrointestinal Disorders: No Hx Liver Disease: No Hx Genitourinary Disorders: No Hx Sexually Transmitted Disorders: No Hx Renal Disease (ESRD): No Hx Thyroid Disease: No Hx Human Immunodeficiency Virus (HIV): No Hx Hepatitis C: No Hx Depression: Yes Hx Suicide Attempt: Yes (Pt staes he tried to walk into traffic 5 months ago) Hx Bipolar Disorder: No Hx Schizophrenia: No - Patient Surgical History Past Surgical History: Yes Hx Neurologic Surgery: No Hx Cataract Extraction: No Hx Cardiac Surgery: No Hx Lung Surgery: No Hx Breast Surgery: No Hx Breast Biopsy: No Hx Abdominal Surgery: No Hx Appendectomy: No Hx Cholecystectomy: No Hx Genitourinary Surgery: No Hx Section: No Hx Orthopedic Surgery: Yes (right hip replacement in 04/2003 at [facility] for avascular necrosis) Other Surgical History: Surgery to repair Right Fibula fracture: 1996. Anesthesia Reaction: No - PPD History Previous Implant?: Yes Documented Results: Positive w/o proof Implanted On Prior R Admission?: No PPD to be Administered?: No - Reproductive History Patient is a Female of Child Bearing Age (11 -55 yrs old): No - Smoking Cessation Smoking history: Current every day smoker Have you smoked in the past 12 months: Yes Aproximately how many cigarettes per day: 10 Cigars Per Day: 0 Hx Chewing Tobacco Use: No Initiated information on smoking cessation: Yes 'Breaking Loose' booklet given: 01/26/17 - Substance & Tx. History Hx Alcohol Use: Yes Hx Substance Use: Yes Substance Use Type: Alcohol, Cocaine Hx Substance Use Treatment: Yes (DETOX: 11/2016; REHAB: 10/2016 ) - Substances Abused Alcohol Route: Oral Frequency: Daily Amount used: 1 pint vodka Age of first use: 15 Date of Last Use: 01/25/17 Cocaine Route: Inhalation Frequency: Daily Amount used: $50 Age of first use: 20 Date of Last Use: 01/25/17 Family Disease History - Family Disease History Family Disease History: Heart Disease: Father (), Respiratory: Mother ( ), Other: Father, Mother Admission Physical Exam [facility] - Vital Signs Vital Signs: Vital Signs - 24 hr 01/26/17 16:13 Temperature 96.2 F L Pulse Rate 70 Respiratory 18 Rate Blood Pressure 160/100 - Physical General Appearance: Yes: Disheveled, Anxious HEENTM: Yes: Hearing grossly Normal, Normocephalic, Normal Voice Respiratory: Yes: Chest Non-Tender, Lungs Clear, Normal Breath Sounds Neck: Yes: No masses,lesions,Nodules, Trachea in good position Breast: Yes: Breast Exam Deferred Cardiology: Yes: Regular Rhythm, Regular Rate Abdominal: Yes: Normal Bowel Sounds, Non Tender Genitourinary: Yes: Other (NO COMPLAINTS REPORTED) Musculoskeletal: Yes: Other (UNSTEADY GAIT) Extremities: Yes: Normal Capillary Refill, Normal Inspection, Normal Range of Motion Neurological: Yes: teleservices representative II-XII NML intact, Fully Oriented, Alert, Motor Strength 5/5, Normal Mood/Affect, Normal Response Integumentary: Yes: Normal Color, Dry, Warm Lymphatic: Yes: Within Normal Limits - Diagnostic (1) History of positive PPD Current Visit: Yes Status: Chronic (2) Alcohol dependence with uncomplicated withdrawal Current Visit: Yes Status: Chronic (3) Cocaine dependence, uncomplicated Current Visit: Yes Status: Chronic (4) Nicotine dependence Current Visit: Yes Status: Chronic Qualifiers: Nicotine product type: cigarettes Substance use status: in withdrawal Qualified Code(s): F17.213 - Nicotine dependence, cigarettes, with withdrawal (5) Arthritis Current Visit: Yes Status: Chronic (6) Hypercholesteremia Current Visit: Yes Status: Chronic (7) Hypertension Current Visit: Yes Status: Chronic Qualifiers: Hypertension type: essential hypertension Qualified Code(s): I10 - Essential (primary) hypertension Cleared for Admission S - Detox or Rehab [facility] Level of Care: Medically Managed Detox Regimen/Protocol: Librium [facility] Breath Alcohol Content Breath Alcohol Content: 0 Urine Drug Screen - Results Drug Screen Negative: No Urine Drug Screen Results: JESUS ALBERTO-Cocaine
[2017-01-26] MEDS ORDERED: P-EPHED 60MG/TRIPROLIDI 2.5MG TABLET PO PRN (18:07)
[2017-01-26] MEDS ORDERED: MAGNESIUM CITRATE 300 ML BOTTLE PO PRN (18:07)
[2017-01-26] MEDS ORDERED: ACETAMINOPHEN 325 MG TABLET (FP) PO PRN (18:07)
[2017-01-26] MEDS ORDERED: hydrOXYzine PAMOATE 50 MG CAPSULE (FP) PO PRN (18:07)
[2017-01-26] MEDS ORDERED: guaiFENesin/D-METHORPHAN HB 10 ML UNIT-DOSE CUPS PO PRN (18:07)
[2017-01-26] MEDS ORDERED: LOPERAMIDE HCL 2 MG CAPSULE PO PRN (18:07)
[2017-01-26] MEDS ORDERED: MAG HYDROX/AL HYDROX/SIMETH 30 ML UNIT-DOSE CUP PO PRN (18:07)
[2017-01-26] MEDS ORDERED: MAGNESIUM HYDROX 2400MG/30ML ORAL SUSPENSION 30 ML CUP PO PRN (18:07)
[2017-01-26] MEDS ORDERED: MENTHOL/PHENOL 1 EACH UD MM PRN (18:07)
[2017-01-26] MEDS ORDERED: chlordiazePOXIDE HCL 25 MG CAPSULE PO PRN (18:07)
[2017-01-26] MEDS: ATENOLOL 25 MG TABLET (FP) PO SCH (18:41)
[2017-01-26] MEDS ORDERED: chlordiazePOXIDE HCL 25 MG CAPSULE PO ONE (19:00)
[2017-01-26] MEDS: NICOTINE POLACRILEX 2 MG GUM BC PRN (19:12)
[2017-01-26 22:01] LABS: URINE APPEARANCE SLCLOUDY; URINE BILIRUBIN NEGATIVE (NEGATIVE); URINE BLOOD NEGATIVE (NEGATIVE); URINE COLOR DKYELLOW; URINE GLUCOSE (UA) NEGATIVE (NEGATIVE); URINE KETONE TRACE (NEGATIVE); URINE LEUK ESTERASE NEGATIVE (NEGATIVE); URINE NITRITE NEGATIVE (NEGATIVE)
[2017-01-26 22:03] LABS: URINE PROTEIN 1+ (NEGATIVE)
[2017-01-26 22:06] LABS: CALCIUM OXALATE CRYSTALS MODERATE /hpf (NONE SEEN); URINE BACTERIA FEW /hpf (NONE SEEN); URINE MUCUS RARE; URINE RBC 1 /hpf (0-3); URINE WBC 3 /hpf (3-5)
[2017-01-26] MEDS: chlordiazePOXIDE HCL 25 MG CAPSULE PO SCH (23:17)
[2017-01-26] MEDS: ATORVASTATIN CA 10 MG TABLET (FP) PO SCH (23:18)
[2017-01-26] MEDS: LIDOCAINE PATCH REMOVAL MC SCH (23:18)
[2017-01-26] MEDS: THIAMINE HCL 100 MG TABLET (FP) PO SCH (23:18)
[2017-01-27] MEDS: chlordiazePOXIDE HCL 25 MG CAPSULE PO SCH ×4 (06:04→23:11)
[2017-01-27] MEDS: NICOTINE POLACRILEX 2 MG GUM BC PRN ×3 (06:07→17:27)
[2017-01-27] MEDS: ASPIRIN COATED 81 MG TABLET.EC PO SCH (10:27)
[2017-01-27] MEDS: PRENATAL VITAMINS W/ FOLIC ACID TABLET (FP) PO SCH (10:27)
[2017-01-27] MEDS: amLODIPine BESYLATE 10 MG TABLET (FP) PO SCH (10:27)
[2017-01-27] MEDS: LIDOCAINE 5% TOPICAL PATCH TP SCH (10:28)
[2017-01-27] MEDS: ATENOLOL 25 MG TABLET (FP) PO SCH (10:28)
[2017-01-27] MEDS: HYDROCHLOROTHIAZIDE 25 MG TABLET (FP) PO SCH (10:28)
[2017-01-27 10:46] LABS: MCH 32.4 pg (25.7-33.7); MCHC 33.1 g/dl (32.0-35.9); MEAN CELL VOLUME 97.7 fl (80-96); MEAN PLT VOLUME 9.1 fl (7.5-11.1); PLATELET COUNT 161 K/MM3 (134-434); RDW 14.6 % (11.9-15.9); WHITE BLOOD COUNT 2.8 K/mm3 (4.0-10.0)
[2017-01-27 11:15] LABS: ALBUMIN 3.1 g/dl (3.4-5.0); ANION GAP 9 (8-16); CALCIUM 8.8 mg/dL (8.5-10.1); CO2 30 mmol/L (21-32); CREATININE 1.3 mg/dL (0.7-1.3); GLUCOSE,RANDOM 116 mg/dL (74-106); SGOT/AST 11 U/L (15-37); SGPT/ALT 18 U/L (12-78)
[2017-01-27 11:17] LABS: ALK PHOS 63 U/L (45-117); BILIRUBIN,TOTAL 0.6 mg/dL (0.2-1.0); TOT PROT 6.5 g/dl (6.4-8.2)
--- NOTE | 2017-01-27 11:19 | CONSULT ---
[facility] Psychiatric Consult - Data Date of interview: 01/27/17 Admission source: [facility] Identifying data: This is one of multiple admissions to [facility] for this 61 y/ o AA male seeking detox treatment on for alcohol and cocaine dependence.Patient is single without children,domiciled,unemployed and supported on [place] benefits. Substance Abuse History: Confirmed by patient in this interview.See current [facility] report for details : Smoking history: Current every day smoker. Have you smoked in the past 12 months: Yes. Aproximately how many cigarettes per day: 10. Cigars Per Day: 0. Hx Chewing Tobacco Use: No. Initiated information on smoking cessation: Yes. 'Breaking Loose' booklet given: 01/26/17. - Substance & Tx. History. Hx Alcohol Use: Yes. Hx Substance Use: Yes. Substance Use Type : Alcohol, Cocaine. Hx Substance Use Treatment: Yes (DETOX: 11/2016; REHAB: 2016 ). - Substances Abused. Alcohol. Route: Oral. Frequency: Daily. Amount used: 1 pint vodka. Age of first use: 15. Date of Last Use: 01/25/17. Cocaine. Route: Inhalation. Frequency: Daily. Amount used: $50. Age of first use: 20. Date of Last Use: 01/25/17 Medical History: Hypertension,hypercholesterolemia and arthritis at L3-L4 level.Noted history of angina and right hip replacement for avascular necrosis ( 2004).Noted report of allergies to haloperidol,enalapril and levofloxacin. Psychiatric History: Patient reports a history of multiple psychiatric hospitalizations.Onset of psychiatric disturbances (1985).Diagnosed with Schizoaffective Disorder.The patiient is known for admissions to [facility] and [facility].Mr Noonan is still receiving outpatient [facility] in the [place].Prescribed wellbutrin 100 mg/day + olanzapine 10 mg twice a day.Medications are reportedly last taken two weeks ago.Poor adherence to treament.Patient denies any history of suicide attempts. 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 Additional Comment: Urine Drug Screen Results: JESUS ALBERTO-Cocaine.Noted. Mental Status Exam - Mental Status Exam Alert and Oriented to: Time, Place, Person Cognitive Function: Good Patient Appearance: Well Groomed Mood: Nervous, Withdrawn Affect: Appropriate, Normal Range Patient Behavior: Fatigued, Cooperative Speech Pattern: Clear, Appropriate Voice Loudness: Normal Thought Process: Goal Oriented Thought Disorder: Not Present Hallucinations: Denies Suicidal Ideation: Denies Homicidal Ideation: Denies Insight/Judgement: Poor Sleep: Poorly, Difficulty falling asleep Appetite: Good Muscle strength/Tone: Normal Gait/Station: Normal Psychiatric Findings - Problem List ([place] 1, 2,3) (1) Alcohol dependence with uncomplicated withdrawal Status: Acute (2) Cocaine dependence, uncomplicated Status: Chronic (3) Nicotine dependence Status: Chronic Qualifiers: Nicotine product type: cigarettes Substance use status: in withdrawal Qualified Code(s): F17.213 - Nicotine dependence, cigarettes, with withdrawal (4) Schizoaffective disorder Status: Chronic Qualifiers: Schizoaffective disorder type: depressive Qualified Code(s): F25.1 - Schizoaffective disorder, depressive type (5) Insomnia Status: Acute Qualifiers: Insomnia type: unspecified Qualified Code(s): G47.00 - Insomnia, unspecified - Initial Treatment Plan Initial Treatment Plan: Psychoeducation.Sleep hygiene.Detoxification in progress.Medications : zyprexa 10 mg po bid + trazodone 50 mg po hs + wellbutrin 100 mg po daily.Side effects/benefits of these drugs are discussed with patient.Made aware of potential for seizures,suicidal ideation,metabolic syndrome,cardiovascular adverse events and priapism.Patient reports current history of good tolerability to these drugs and insists on their inclusion in this regimen.Observation.Medications confirmed by pharmacy claims of 12/14/16 at [facility].
[2017-01-27 12:05] LABS: HIV 1 & 2 AB NEGATIVE; HIV 1 AGp24 NEGATIVE
[2017-01-27] MEDS: IBUPROFEN 400 MG TABLET (FP) PO PRN ×2 (13:28→21:35)
--- NOTE | 2017-01-27 17:25 | PN ---
[facility] CIWA - CIWA Score Nausea/Vomitin-No Nausea/No Vomiting Muscle Tremors: 3 Anxiety: 3 Agitation: 3 Paroxysmal Sweats: 3 Orientation: 0-Oriented Tacttile Disturbances: 2-Mild Itch/Numbness/Burn Auditory Disturbances: 2-Mild Harshness/Frighten Visual Disturbances: 0-None Headache: 0-None Present CIWA-Ar Total Score: 16 S Progress Note (SOAP) Subjective: Fatigue, Body Aches, Sweating. Objective: PT. A & O X 3, OBSERVED AMBULATING ON UNIT. NO ACUTE DISTRESS. PT. DENIES CHEST PAIN. 01/27/17 17:26 Vital Signs Temperature 96.8 F L 01/27/17 13:59 Pulse Rate 67 01/27/17 13:59 Respiratory Rate 18 01/27/17 13:59 Blood Pressure 148/90 01/27/17 13:59 O2 Sat by Pulse Oximetry (%) Laboratory Tests 01/26/17 01/27/17 01/27/17 21:00 08:00 08:00 WBC 2.8 L RBC 4.08 Hgb 13.2 Hct 39.8 MCV 97.7 H MCH 32.4 MCHC 33.1 RDW 14.6 Plt Count 161 D MPV 9.1 D Sodium Potassium Chloride Carbon Dioxide Anion Gap BUN Creatinine Creat Clearance w eGFR Random Glucose Calcium Total Bilirubin AST ALT Alkaline Phosphatase Total Protein Albumin Urine Color Dkyellow Urine Appearance Slcloudy Urine pH 6.0 Ur Specific [place] 1.024 Urine Protein 1+ H Urine Glucose (UA) Negative Urine Ketones Trace H Urine Blood Negative Urine Nitrite Negative Urine Bilirubin Negative Urine Urobilinogen 2.0 Urine WBC (Auto) 3 Urine RBC (Auto) 1 Ur Epithelial Cells Rare Calcium Oxalate Crystal Moderate Urine Bacteria Few Urine Mucus Rare RPR Titer HIV 1&2 Antibody Screen Negative HIV P24 Antigen Negative 01/27/17 01/27/17 08:00 08:00 WBC RBC Hgb Hct MCV MCH MCHC RDW Plt Count MPV Sodium 142 Potassium 3.6 Chloride 103 Carbon Dioxide 30 Anion Gap 9 BUN 10 D Creatinine 1.3 Creat Clearance w eGFR 56.50 Random Glucose 116 H Calcium 8.8 Total Bilirubin 0.6 D AST 11 L D ALT 18 Alkaline Phosphatase 63 Total Protein 6.5 Albumin 3.1 L Urine Color Urine Appearance Urine pH Ur Specific [place] Urine Protein Urine Glucose (UA) Urine Ketones Urine Blood Urine Nitrite Urine Bilirubin Urine Urobilinogen Urine WBC (Auto) Urine RBC (Auto) Ur Epithelial Cells Calcium Oxalate Crystal Urine Bacteria Urine Mucus RPR Titer Nonreactive HIV 1&2 Antibody Screen HIV P24 Antigen LABS NOTED. PT. HAS HISTORY OF LOW WBC COUNT ON PREVIOUS ADMISSIONS. 01/27/17 17:28 Assessment: 01/27/17 17:27 WITHDRAWAL SYMPTOMS. LEUKOPENIA. 01/27/17 17:29 Plan: CONTINUE DETOX. REPEAT CBC ON 01/29/2017 FOR LOW ADMISSION WBC COUNT.
[2017-01-27] MEDS: OLANZapine 10 MG TABLET PO SCH (21:35)
[2017-01-27] MEDS: ATORVASTATIN CA 10 MG TABLET (FP) PO SCH (21:35)
[2017-01-27] MEDS: traZODone HCL 50 MG TABLET (FP) PO SCH (21:35)
[2017-01-27] MEDS: THIAMINE HCL 100 MG TABLET (FP) PO SCH (21:37)
[2017-01-27] MEDS: LIDOCAINE PATCH REMOVAL MC SCH (23:01)
[2017-01-27 23:16] LABS: URINE LEUK ESTERASE Negative (NEGATIVE)
[2017-01-28] MEDS: chlordiazePOXIDE HCL 25 MG CAPSULE PO SCH ×3 (06:11→17:51)
[2017-01-28] MEDS: NICOTINE POLACRILEX 2 MG GUM BC PRN ×4 (06:12→17:51)
[2017-01-28] MEDS: HYDROCHLOROTHIAZIDE 25 MG TABLET (FP) PO SCH (10:24)
[2017-01-28] MEDS: PRENATAL VITAMINS W/ FOLIC ACID TABLET (FP) PO SCH (10:24)
[2017-01-28] MEDS: amLODIPine BESYLATE 10 MG TABLET (FP) PO SCH (10:24)
[2017-01-28] MEDS: ATENOLOL 25 MG TABLET (FP) PO SCH (10:24)
[2017-01-28] MEDS: OLANZapine 10 MG TABLET PO SCH ×2 (10:24→22:31)
[2017-01-28] MEDS: buPROPion HCL 100 MG TABLET PO SCH (10:24)
[2017-01-28] MEDS: ASPIRIN COATED 81 MG TABLET.EC PO SCH (10:24)
[2017-01-28] MEDS: LIDOCAINE 5% TOPICAL PATCH TP SCH (10:24)
--- NOTE | 2017-01-28 17:10 | PN ---
S CIWA - CIWA Score Nausea/Vomitin-Mild Nausea/No Vomiting Muscle Tremors: 2 Anxiety: 3 Agitation: 3 Paroxysmal Sweats: 2 Orientation: 0-Oriented Tacttile Disturbances: 1-Very Mild Itch/Numbness Auditory Disturbances: 0-None Visual Disturbances: 0-None Headache: 2-Mild CIWA-Ar Total Score: 14 S Progress Note (SOAP) Subjective: Anxious, sweating, interrupted sleep, nausea Objective: 01/28/17 17:07 Last Vital Signs Temp Pulse Resp BP Pulse Ox 96.6 F L 65 19 153/87 01/28/17 13:56 01/28/17 13:56 01/28/17 13:56 01/28/17 13:56 Laboratory Tests 01/26/17 01/27/17 01/27/17 21:00 08:00 08:00 WBC 2.8 L RBC 4.08 Hgb 13.2 Hct 39.8 MCV 97.7 H MCH 32.4 MCHC 33.1 RDW 14.6 Plt Count 161 D MPV 9.1 D Sodium Potassium Chloride Carbon Dioxide Anion Gap BUN Creatinine Creat Clearance w eGFR Random Glucose Calcium Total Bilirubin AST ALT Alkaline Phosphatase Total Protein Albumin Urine Color Dkyellow Urine Appearance Slcloudy Urine pH 6.0 Ur Specific [place] 1.024 Urine Protein 1+ H Urine Glucose (UA) Negative Urine Ketones Trace H Urine Blood Negative Urine Nitrite Negative Urine Bilirubin Negative Urine Urobilinogen 2.0 Ur Leukocyte Esterase Negative Urine WBC (Auto) 3 Urine RBC (Auto) 1 Ur Epithelial Cells Rare Calcium Oxalate Crystal Moderate Urine Bacteria Few Urine Mucus Rare RPR Titer HIV 1&2 Antibody Screen Negative HIV P24 Antigen Negative 01/27/17 01/27/17 08:00 08:00 WBC RBC Hgb Hct MCV MCH MCHC RDW Plt Count MPV Sodium 142 Potassium 3.6 Chloride 103 Carbon Dioxide 30 Anion Gap 9 BUN 10 D Creatinine 1.3 Creat Clearance w eGFR 56.50 Random Glucose 116 H Calcium 8.8 Total Bilirubin 0.6 D AST 11 L D ALT 18 Alkaline Phosphatase 63 Total Protein 6.5 Albumin 3.1 L Urine Color Urine Appearance Urine pH Ur Specific [place] Urine Protein Urine Glucose (UA) Urine Ketones Urine Blood Urine Nitrite Urine Bilirubin Urine Urobilinogen Ur Leukocyte Esterase Urine WBC (Auto) Urine RBC (Auto) Ur Epithelial Cells Calcium Oxalate Crystal Urine Bacteria Urine Mucus RPR Titer Nonreactive HIV 1&2 Antibody Screen HIV P24 Antigen Labs noted: ROSALVA, abnormal UA Assessment: 01/28/17 17:08 Withdrawal symptoms Noted with ROSALVA and abnormal UA Plan: Continue detox ROSALVA:encouraged to drink lots of water, repeat renal function panel Abnormal UA: encouraged to drink lots of water, repeat UA
[2017-01-28] MEDS: chlordiazePOXIDE 5 MG CAPSULE PO SCH (22:31)
[2017-01-28] MEDS: THIAMINE HCL 100 MG TABLET (FP) PO SCH (22:31)
[2017-01-28] MEDS: traZODone HCL 50 MG TABLET (FP) PO SCH (22:31)
[2017-01-28] MEDS: ATORVASTATIN CA 10 MG TABLET (FP) PO SCH (22:31)
[2017-01-28] MEDS: LIDOCAINE PATCH REMOVAL MC SCH (22:32)
[2017-01-29] MEDS: chlordiazePOXIDE 5 MG CAPSULE PO SCH ×3 (06:11→17:44)
[2017-01-29] MEDS: LIDOCAINE 5% TOPICAL PATCH TP SCH (09:00)
[2017-01-29 09:58] LABS: BASO % 0.4 % (0-2.0); EOS % 2.2 % (0-4.5); MCH 32.9 pg (25.7-33.7); MCHC 33.7 g/dl (32.0-35.9); MEAN CELL VOLUME 97.6 fl (80-96); MEAN PLT VOLUME 8.9 fl (7.5-11.1); NEUT % 38.9 % (42.8-82.8); PLATELET COUNT 173 K/MM3 (134-434); RDW 14.8 % (11.9-15.9); WHITE BLOOD COUNT 3.4 K/mm3 (4.0-10.0)
[2017-01-29] MEDS: buPROPion HCL 100 MG TABLET PO SCH (10:14)
[2017-01-29] MEDS: ATENOLOL 25 MG TABLET (FP) PO SCH (10:14)
[2017-01-29] MEDS: OLANZapine 10 MG TABLET PO SCH ×2 (10:14→22:21)
[2017-01-29] MEDS: HYDROCHLOROTHIAZIDE 25 MG TABLET (FP) PO SCH (10:14)
[2017-01-29] MEDS: PRENATAL VITAMINS W/ FOLIC ACID TABLET (FP) PO SCH (10:14)
[2017-01-29] MEDS: ASPIRIN COATED 81 MG TABLET.EC PO SCH (10:15)
[2017-01-29] MEDS: amLODIPine BESYLATE 10 MG TABLET (FP) PO SCH (10:15)
[2017-01-29 10:17] LABS: CALCIUM 8.9 mg/dL (8.5-10.1); CREATININE 1.2 mg/dL (0.7-1.3); PHOSPHOROUS 2.5 mg/dL (2.5-4.9)
[2017-01-29] MEDS: NICOTINE POLACRILEX 2 MG GUM BC PRN ×3 (10:17→22:24)
[2017-01-29] MEDS: IBUPROFEN 400 MG TABLET (FP) PO PRN (12:37)
--- NOTE | 2017-01-29 12:42 | PN ---
S Progress Note (SOAP) Subjective: Fatigue, interrupted sleep Objective: 01/29/17 12:39 Last Vital Signs Temp Pulse Resp BP Pulse Ox 98.2 F 74 18 169/106 01/29/17 09:39 01/29/17 09:39 01/29/17 09:39 01/29/17 09:39 b/p noted 169/106 Laboratory Tests 01/26/17 01/27/17 01/27/17 21:00 08:00 08:00 WBC 2.8 L RBC 4.08 Hgb 13.2 Hct 39.8 MCV 97.7 H MCH 32.4 MCHC 33.1 RDW 14.6 Plt Count 161 D MPV 9.1 D Neutrophils % Lymphocytes % Monocytes % Eosinophils % Basophils % Sodium Potassium Chloride Carbon Dioxide Anion Gap BUN Creatinine Creat Clearance w eGFR Random Glucose Calcium Phosphorus Total Bilirubin AST ALT Alkaline Phosphatase Total Protein Albumin Urine Color Dkyellow Urine Appearance Slcloudy Urine pH 6.0 Ur Specific [place] 1.024 Urine Protein 1+ H Urine Glucose (UA) Negative Urine Ketones Trace H Urine Blood Negative Urine Nitrite Negative Urine Bilirubin Negative Urine Urobilinogen 2.0 Ur Leukocyte Esterase Negative Urine WBC (Auto) 3 Urine RBC (Auto) 1 Ur Epithelial Cells Rare Calcium Oxalate Crystal Moderate Urine Bacteria Few Urine Mucus Rare RPR Titer HIV 1&2 Antibody Screen Negative HIV P24 Antigen Negative 01/27/17 01/27/17 01/29/17 08:00 08:00 07:00 WBC 3.4 L RBC 4.02 Hgb 13.2 Hct 39.3 MCV 97.6 H MCH 32.9 MCHC 33.7 RDW 14.8 Plt Count 173 MPV 8.9 Neutrophils % 38.9 L Lymphocytes % 49.0 H Monocytes % 9.5 Eosinophils % 2.2 Basophils % 0.4 Sodium 142 Potassium 3.6 Chloride 103 Carbon Dioxide 30 Anion Gap 9 BUN 10 D Creatinine 1.3 Creat Clearance w eGFR 56.50 Random Glucose 116 H Calcium 8.8 Phosphorus Total Bilirubin 0.6 D AST 11 L D ALT 18 Alkaline Phosphatase 63 Total Protein 6.5 Albumin 3.1 L Urine Color Urine Appearance Urine pH Ur Specific [place] Urine Protein Urine Glucose (UA) Urine Ketones Urine Blood Urine Nitrite Urine Bilirubin Urine Urobilinogen Ur Leukocyte Esterase Urine WBC (Auto) Urine RBC (Auto) Ur Epithelial Cells Calcium Oxalate Crystal Urine Bacteria Urine Mucus RPR Titer Nonreactive HIV 1&2 Antibody Screen HIV P24 Antigen 01/29/17 07:00 WBC RBC Hgb Hct MCV MCH MCHC RDW Plt Count MPV Neutrophils % Lymphocytes % Monocytes % Eosinophils % Basophils % Sodium 141 Potassium 3.7 Chloride 103 Carbon Dioxide 33 H Anion Gap BUN 12 Creatinine 1.2 Creat Clearance w eGFR Random Glucose 124 H Calcium 8.9 Phosphorus 2.5 Total Bilirubin AST ALT Alkaline Phosphatase Total Protein Albumin 3.0 L Urine Color Urine Appearance Urine pH Ur Specific [place] Urine Protein Urine Glucose (UA) Urine Ketones Urine Blood Urine Nitrite Urine Bilirubin Urine Urobilinogen Ur Leukocyte Esterase Urine WBC (Auto) Urine RBC (Auto) Ur Epithelial Cells Calcium Oxalate Crystal Urine Bacteria Urine Mucus RPR Titer HIV 1&2 Antibody Screen HIV P24 Antigen Labs noted Assessment: 01/29/17 12:41 Withdrawal symptoms h/o HTN Plan: Continue detox HTN: continue present regimen, encourage low sodium diet, continue to monitor F/U on repeated UA result (pending)
[2017-01-29 14:25] LABS: URINE APPEARANCE CLEAR; URINE BILIRUBIN NEGATIVE (NEGATIVE); URINE BLOOD NEGATIVE (NEGATIVE); URINE COLOR LTYELLOW; URINE GLUCOSE (UA) NEGATIVE (NEGATIVE); URINE KETONE NEGATIVE (NEGATIVE); URINE LEUK ESTERASE NEGATIVE (NEGATIVE); URINE NITRITE NEGATIVE (NEGATIVE); URINE PROTEIN NEGATIVE (NEGATIVE); URINE UROBILINOGEN NEGATIVE mg/dL (0.2-1.0)
[2017-01-29 17:36] LABS: URINE LEUK ESTERASE Negative (NEGATIVE)
[2017-01-29] MEDS: THIAMINE HCL 100 MG TABLET (FP) PO SCH (22:21)
[2017-01-29] MEDS: traZODone HCL 50 MG TABLET (FP) PO SCH (22:21)
[2017-01-29] MEDS: ATORVASTATIN CA 10 MG TABLET (FP) PO SCH (22:21)
[2017-01-29] MEDS: chlordiazePOXIDE HCL 10 MG CAPSULE PO SCH (22:21)
[2017-01-29] MEDS: LIDOCAINE PATCH REMOVAL MC SCH (22:31)
--- NOTE | 2017-01-30 01:57 | EKG ---
Test Reason : Blood Pressure : / mmHG Vent. Rate : 061 BPM Atrial Rate : 061 BPM P-R Int : 162 ms QRS Dur : 076 ms QT Int : 408 ms P-R-T Axes : 043 -42 -31 degrees QTc Int : 410 ms NORMAL SINUS RHYTHM LEFT AXIS DEVIATION MINIMAL VOLTAGE CRITERIA FOR LVH, MAY BE NORMAL VARIANT NONSPECIFIC ST ABNORMALITY ABNORMAL ECG WHEN COMPARED WITH ECG OF 02-DEC-2016 22:08, Confirmed by ANKITA TORRES, TIKI ([id number]) on 01/30/2017 1:57:26 AM Referred By: Confirmed By:TIKI LUCIANO MD
[2017-01-30] MEDS: chlordiazePOXIDE HCL 10 MG CAPSULE PO SCH (05:21)
[2017-01-30] MEDS: NICOTINE POLACRILEX 2 MG GUM BC PRN ×2 (05:23→10:31)
[2017-01-30 09:09] VITALS: BP 162/85; PULSE 80; TEMP 99.8
[2017-01-30] MEDS: ATENOLOL 25 MG TABLET (FP) PO SCH (10:30)
[2017-01-30] MEDS: LIDOCAINE 5% TOPICAL PATCH TP SCH (10:30)
[2017-01-30] MEDS: amLODIPine BESYLATE 10 MG TABLET (FP) PO SCH (10:30)
[2017-01-30] MEDS: OLANZapine 10 MG TABLET PO SCH (10:30)
[2017-01-30] MEDS: ASPIRIN COATED 81 MG TABLET.EC PO SCH (10:30)
[2017-01-30] MEDS: PRENATAL VITAMINS W/ FOLIC ACID TABLET (FP) PO SCH (10:30)
[2017-01-30] MEDS: buPROPion HCL 100 MG TABLET PO SCH (10:30)
[2017-01-30] MEDS: HYDROCHLOROTHIAZIDE 25 MG TABLET (FP) PO SCH (10:30)
[2017-01-30] MEDS: IBUPROFEN 400 MG TABLET (FP) PO PRN (12:23)
--- NOTE | 2017-01-30 12:34 | DS ---
[facility] Detox Discharge Summary Admission Date: 01/26/17 Discharge Date: 01/30/17 - History Present History: Alcohol Dependence, Cocaine Dependence Additional Comments: PATIENT GOING TO [facility] FOR AFTERCARE. PATIENT LEFT DETOX UNIT IN STABLE MEDICAL CONDITION. Pertinent Past History: HTN, Depression, Hypercholesterolemia, Nicotine Dependence, Schizoaffective Disorder, Insomnia, History of Positive PPD, Arthritis. - Physical Exam Results Vital Signs: Vital Signs Temperature 99.8 F H 01/30/17 09:09 Pulse Rate 80 01/30/17 09:09 Respiratory Rate 18 01/30/17 09:09 Blood Pressure 162/85 01/30/17 09:09 O2 Sat by Pulse Oximetry (%) Pertinent Admission Physical Exam Findings: WITHDRAWAL SYMPTOMS. Laboratory Tests 01/26/17 01/27/17 01/27/17 21:00 08:00 08:00 WBC 2.8 L RBC 4.08 Hgb 13.2 Hct 39.8 MCV 97.7 H MCH 32.4 MCHC 33.1 RDW 14.6 Plt Count 161 D MPV 9.1 D Neutrophils % Lymphocytes % Monocytes % Eosinophils % Basophils % Sodium Potassium Chloride Carbon Dioxide Anion Gap BUN Creatinine Creat Clearance w eGFR Random Glucose Calcium Phosphorus Total Bilirubin AST ALT Alkaline Phosphatase Total Protein Albumin Urine Color Dkyellow Urine Appearance Slcloudy Urine pH 6.0 Ur Specific [place] 1.024 Urine Protein 1+ H Urine Glucose (UA) Negative Urine Ketones Trace H Urine Blood Negative Urine Nitrite Negative Urine Bilirubin Negative Urine Urobilinogen 2.0 Ur Leukocyte Esterase Negative Urine WBC (Auto) 3 Urine RBC (Auto) 1 Ur Epithelial Cells Rare Calcium Oxalate Crystal Moderate Urine Bacteria Few Urine Mucus Rare RPR Titer HIV 1&2 Antibody Screen Negative HIV P24 Antigen Negative 01/27/17 01/27/17 01/29/17 08:00 08:00 07:00 WBC 3.4 L RBC 4.02 Hgb 13.2 Hct 39.3 MCV 97.6 H MCH 32.9 MCHC 33.7 RDW 14.8 Plt Count 173 MPV 8.9 Neutrophils % 38.9 L Lymphocytes % 49.0 H Monocytes % 9.5 Eosinophils % 2.2 Basophils % 0.4 Sodium 142 Potassium 3.6 Chloride 103 Carbon Dioxide 30 Anion Gap 9 BUN 10 D Creatinine 1.3 Creat Clearance w eGFR 56.50 Random Glucose 116 H Calcium 8.8 Phosphorus Total Bilirubin 0.6 D AST 11 L D ALT 18 Alkaline Phosphatase 63 Total Protein 6.5 Albumin 3.1 L Urine Color Urine Appearance Urine pH Ur Specific [place] Urine Protein Urine Glucose (UA) Urine Ketones Urine Blood Urine Nitrite Urine Bilirubin Urine Urobilinogen Ur Leukocyte Esterase Urine WBC (Auto) Urine RBC (Auto) Ur Epithelial Cells Calcium Oxalate Crystal Urine Bacteria Urine Mucus RPR Titer Nonreactive HIV 1&2 Antibody Screen HIV P24 Antigen 01/29/17 01/29/17 07:00 11:30 WBC RBC Hgb Hct MCV MCH MCHC RDW Plt Count MPV Neutrophils % Lymphocytes % Monocytes % Eosinophils % Basophils % Sodium 141 Potassium 3.7 Chloride 103 Carbon Dioxide 33 H Anion Gap BUN 12 Creatinine 1.2 Creat Clearance w eGFR Random Glucose 124 H Calcium 8.9 Phosphorus 2.5 Total Bilirubin AST ALT Alkaline Phosphatase Total Protein Albumin 3.0 L Urine Color Ltyellow Urine Appearance Clear Urine pH 5.0 Ur Specific [place] 1.017 Urine Protein Negative Urine Glucose (UA) Negative Urine Ketones Negative Urine Blood Negative Urine Nitrite Negative Urine Bilirubin Negative Urine Urobilinogen Negative Ur Leukocyte Esterase Negative Urine WBC (Auto) Urine RBC (Auto) Ur Epithelial Cells Calcium Oxalate Crystal Urine Bacteria Urine Mucus RPR Titer HIV 1&2 Antibody Screen HIV P24 Antigen LABS NOTED. - Treatment Hospital Course: Detox Protocol Followed, Detoxed Safely, Responded well, Discharged Condition Good, Rehab Referral Accepted Patient has Accepted a Rehab Referral to: [facility] ([place] . - Medication Discharge Medications: Ambulatory Orders Amlodipine Besylate [Norvasc -] 10 mg PO DAILY #30 tab 09/14/16 Aspirin Coated [Ecotrin -] 81 mg PO DAILY #30 tab 09/14/16 Atenolol [Tenormin -] 25 mg PO DAILY #30 tab 09/14/16 Atorvastatin Ca [Lipitor] 10 mg PO HS #30 tablet 09/14/16 Hydrochlorothiazide 25 mg PO DAILY 12/02/16 Bupropion HCl [Wellbutrin -] 100 mg PO DAILY #30 tablet 12/03/16 Olanzapine [Zyprexa] 10 mg PO BID #60 tablet 12/03/16 Trazodone HCl [Desyrel -] 50 mg PO HS #30 tablet 12/03/16 - Diagnosis (1) Alcohol dependence with uncomplicated withdrawal Current Visit: Yes Status: Acute (2) Cocaine dependence, uncomplicated Current Visit: Yes Status: Chronic (3) Nicotine dependence Current Visit: Yes Status: Chronic Qualifiers: Nicotine product type: cigarettes Substance use status: in withdrawal Qualified Code(s): F17.213 - Nicotine dependence, cigarettes, with withdrawal (4) History of positive PPD Current Visit: Yes Status: Chronic (5) Hypertension Current Visit: Yes Status: Chronic Qualifiers: Hypertension type: essential hypertension Qualified Code(s): I10 - Essential (primary) hypertension (6) Arthritis Current Visit: Yes Status: Chronic (7) Hypercholesteremia Current Visit: Yes Status: Chronic (8) Schizoaffective disorder Current Visit: Yes Status: Chronic Qualifiers: Schizoaffective disorder type: depressive Qualified Code(s): F25.1 - Schizoaffective disorder, depressive type (9) Insomnia Current Visit: Yes Status: Acute Qualifiers: Insomnia type: unspecified Qualified Code(s): G47.00 - Insomnia, unspecified - AMA Did Patient Leave Against Medical Advice: No
== END 2017-01-30 12:35 | disposition other institution (70) | DRG 774 ==
LOC: YASAS 15:03 → Y3N 18:10
PROVIDERS: ADMIT Internal Medicine; ATTEND Internal Medicine
PROC: HZ2ZZZZ Detoxification Services for Substance Abuse Treatment (ICD-10-PCS; principal; 2017-01-26)
DX: F10.230 Alcohol dependence with withdrawal, uncomplicated (principal); F14.20 Cocaine dependence, uncomplicated; F17.213 Nicotine dependence, cigarettes, with withdrawal; F25.1 Schizoaffective disorder, depressive type; I10 Essential (primary) hypertension; M11.9 Crystal arthropathy, unspecified; G47.00 Insomnia, unspecified; E78.00 Pure hypercholesterolemia, unspecified; R76.11 Nonspecific reaction to tuberculin skin test without active tuberculosis; N17.9 Acute kidney failure, unspecified; R82.90 Unspecified abnormal findings in urine; D72.819 Decreased white blood cell count, unspecified; Z91.14 Patient's other noncompliance with medication regimen; Z96.641 Presence of right artificial hip joint; Z88.1 Allergy status to other antibiotic agents; Z88.8 Allergy status to other drugs, medicaments and biological substances; Z91.5 Personal history of self-harm
CPT/HCPCS: 36415; 80053; 80069; 81003; 81015; 85025; 85027; 86593; 87389; 93005; 93010

== ENCOUNTER 2017-01-30 12:47 | Inpatient (IN) | payer OTHER ==
[2017-01-30] MEDS ORDERED: MAGNESIUM CITRATE 300 ML BOTTLE PO PRN (16:02)
[2017-01-30] MEDS ORDERED: ACETAMINOPHEN 325 MG TABLET (FP) PO PRN (16:02)
[2017-01-30] MEDS ORDERED: guaiFENesin/D-METHORPHAN HB 10 ML UNIT-DOSE CUPS PO PRN (16:02)
[2017-01-30] MEDS ORDERED: MAGNESIUM HYDROX 2400MG/30ML ORAL SUSPENSION 30 ML CUP PO PRN (16:02)
[2017-01-30] MEDS ORDERED: MAG HYDROX/AL HYDROX/SIMETH 30 ML UNIT-DOSE CUP PO PRN (16:02)
[2017-01-30] MEDS ORDERED: hydrOXYzine PAMOATE 50 MG CAPSULE (FP) PO PRN (16:02)
[2017-01-30] MEDS ORDERED: LOPERAMIDE HCL 2 MG CAPSULE PO PRN (16:02)
[2017-01-30] MEDS ORDERED: P-EPHED 60MG/TRIPROLIDI 2.5MG TABLET PO PRN (16:02)
[2017-01-30] MEDS ORDERED: MENTHOL/PHENOL 1 EACH UD MM PRN (16:02)
--- NOTE | 2017-01-30 16:07 | HP ---
[facility] Rehab Assess/Revision - Admission History Admitted to Rehab from: [facility] Date of Admission to Rehab: 01/30/2017 - Vital signs Vital Signs: Vital Signs Period Temp Pulse Resp BP Sys/Brian Pulse Ox Last 24 Hr 99 F 80 18 147/77 - Findings Detox History & Physical reviewed: Yes Concur with findings: Yes Inpatient Rehab Admission - Initial Determination Are CD services needed?: Yes Free of communicable disease: Yes Not in need of hospitalization: Yes - Rehab Admission Criteria Comorbidities: Yes Patient is meeting Inpatient Rehab admission criteria:: Yes
[2017-01-30] MEDS: NICOTINE POLACRILEX 2 MG GUM BUC PRN (17:35)
[2017-01-30] MEDS: ATORVASTATIN CA 10 MG TABLET (FP) PO SCH (21:06)
[2017-01-30] MEDS: THIAMINE HCL 100 MG TABLET (FP) PO SCH (21:06)
[2017-01-30] MEDS: OLANZapine 10 MG TABLET PO SCH (21:07)
[2017-01-30] MEDS ORDERED: traZODone HCL 50 MG TABLET (FP) PO SCH (22:00)
[2017-01-31] MEDS: NICOTINE POLACRILEX 2 MG GUM BUC PRN ×4 (06:35→20:08)
--- NOTE | 2017-01-31 08:57 | HP ---
Psychiatrist Admission - Data Date of interview: 01/31/17 Admission source: 3N Identifying data: This is the third inpatient rehabilitation admissions for this 61 year old single AA male unemployed and supported on PA, he is domiciled , residing alone in [facility]. Medical History: Hypertension,hypercholesterolemia and arthritis at L3-L4 level.Noted history of angina and right hip replacement for avascular necrosis ( 2004).Noted report of allergies to haloperidol,enalapril and levofloxacin. Smokes cigarettes 1/2 PPD. Psychiatric History: Patient reports was diagnosed with Schizoaffective disorder , first psychiatric hospitalization in 2003, was admited to [facility] due to depressed mood, auditory hallucintions and degradation of general functioning, he reports several subsequent psychiatric hospitalizations ([facility], [facility]) with most recent on November of this year to [facility] due to depressed mood and auditory hallucinations, was discharged with scripts for Wellbutrin 100 mg po daily, Zyprexa 10 mg po bid, Trazodone 50 mg po hs. Reports under the care of a psychiatrist at [facility] in the [place], sen by while in detox and continued his medications. Physical/Sexual Abuse/Trauma History: Patient denies history of sexual, physical and verbal abuse, [employer], served from [id number] in [employer], [employer] [facility] [place] [employer], with honorably discharged as self report.. Vital Signs: Vital Signs - 24 hr 01/30/17 01/31/17 01/31/17 13:29 00:47 03:30 Temperature 99 F Pulse Rate 80 Respiratory 18 18 18 Rate Blood Pressure 147/77 01/31/17 06:38 Temperature 97.6 F Pulse Rate 69 Respiratory 20 Rate Blood Pressure 145/78 Allergies/Adverse Reactions: Allergies Allergy/AdvReac Type Severity Reaction Status Date / Time enalapril [Enalapril] Allergy Swelling Verified 12/02/16 21:11 haloperidol [From Haldol] Allergy Verified 12/02/16 21:11 haloperidol lactate Allergy Verified 12/02/16 21:11 [From Haldol] levofloxacin [From Levaquin] Allergy Hives Verified 12/02/16 21:11 ,Enalapril, Haldol, Levaquin Allergy Severe Hives Uncoded 12/02/16 21:11 Date of last physical exam: 01/26/17 Concur with the findings of this exam: Yes - Substance Abuse/Tx History Hx Alcohol Use: Yes (1 pint of vodka) Hx Substance Use: Yes Substance Use Type: Cocaine ($50 daily ), Marijuana (once in 2 weeks.) Hx Substance Use Treatment: Yes (several detox/rehab.) Mental Status Exam - Mental Status Exam Alert and Oriented to: Time, Place, Person Cognitive Function: Good Patient Appearance: Well Groomed Mood: Sad (reports he is always depressed on this time of the year, lost his mother on 1993) Affect: Appropriate, Mood Congruent Patient Behavior: Appropriate, Cooperative Speech Pattern: Clear, Appropriate Voice Loudness: Normal Thought Process: Intact, Goal Oriented Thought Disorder: Not Present Hallucinations: Denies, Auditory (on and off voices telling to "get him") Homicidal Ideation: Denies Insight/Judgement: Fair Sleep: Fair Appetite: Fair Muscle strength/Tone: Normal Gait/Station: Normal Psychiatric Findings - Problem List ([place] 1, 2,3) (1) Cannabis abuse Current Visit: Yes Status: Acute (2) Alcohol dependence Current Visit: No Status: Acute (3) Cocaine dependence Current Visit: No Status: Chronic (4) Nicotine dependence Current Visit: No Status: Chronic Qualifiers: Nicotine product type: cigarettes Substance use status: in withdrawal Qualified Code(s): F17.213 - Nicotine dependence, cigarettes, with withdrawal (5) Schizoaffective disorder Current Visit: No Status: Chronic Qualifiers: Schizoaffective disorder type: depressive Qualified Code(s): F25.1 - Schizoaffective disorder, depressive type - Initial Treatment Plan Initial Treatment Plan: will continue his current medications, monitor progress as needed.
[2017-01-31] MEDS: PRENATAL VITAMINS W/ FOLIC ACID TABLET (FP) PO SCH (10:06)
[2017-01-31] MEDS: ATENOLOL 25 MG TABLET (FP) PO SCH (10:06)
[2017-01-31] MEDS: NICOTINE 7 MG/24 HOURS TOPICAL PATCH TD SCH (10:06)
[2017-01-31] MEDS: ASPIRIN COATED 81 MG TABLET.EC PO SCH (10:06)
[2017-01-31] MEDS: buPROPion HCL 100 MG TABLET PO SCH (10:06)
[2017-01-31] MEDS: amLODIPine BESYLATE 10 MG TABLET (FP) PO SCH (10:06)
[2017-01-31] MEDS: HYDROCHLOROTHIAZIDE 25 MG TABLET (FP) PO SCH (10:06)
[2017-01-31] MEDS: OLANZapine 10 MG TABLET PO SCH ×2 (10:06→21:12)
[2017-01-31] MEDS: IBUPROFEN 400 MG TABLET (FP) PO PRN (10:07)
--- NOTE | 2017-01-31 14:15 | PN ---
[facility] Progress Note (SOAP) Subjective: c/o dhornic back pain and sciatica 2/2 spinal stonosis and disc disease would like meidcations for pain 09/21 currently Objective: 01/31/17 14:13 Vital Signs - 24 hr 01/31/17 01/31/17 01/31/17 00:47 03:30 06:38 Temperature 97.6 F Pulse Rate 69 Respiratory 18 18 20 Rate Blood Pressure 145/78 labs reviewed with patient 01/31/17 14:14 ambulatign with cane, NAD Assessment: 01/31/17 14:14 start lidoderm patch, narposyn, flexeril, elavil. will monitor consider topamax if needs addditional medication,. unable to tolerate neurontin.
[2017-01-31] MEDS: PANTOPRAZOLE 40 MG TABLET (FP) PO SCH (15:02)
[2017-01-31] MEDS: LIDOCAINE 5% TOPICAL PATCH TP SCH (15:02)
[2017-01-31] MEDS: CYCLOBENZAPRINE HCL 10 MG TABLET (FP) PO SCH ×2 (15:02→21:12)
[2017-01-31] MEDS: ATORVASTATIN CA 10 MG TABLET (FP) PO SCH (21:12)
[2017-01-31] MEDS: THIAMINE HCL 100 MG TABLET (FP) PO SCH (21:12)
[2017-01-31] MEDS: NAPROXEN 500 MG TABLET (FP) PO SCH (21:12)
[2017-01-31] MEDS: AMITRIPTYLINE HCL 25 MG TABLET (FP) PO SCH (21:12)
[2017-01-31] MEDS: LIDOCAINE PATCH REMOVAL MC SCH (21:12)
[2017-02-01] MEDS: CYCLOBENZAPRINE HCL 10 MG TABLET (FP) PO SCH ×3 (06:13→21:36)
[2017-02-01] MEDS: NICOTINE POLACRILEX 2 MG GUM BUC PRN ×3 (06:13→21:37)
[2017-02-01] MEDS: amLODIPine BESYLATE 10 MG TABLET (FP) PO SCH (09:50)
[2017-02-01] MEDS: PRENATAL VITAMINS W/ FOLIC ACID TABLET (FP) PO SCH (09:50)
[2017-02-01] MEDS: HYDROCHLOROTHIAZIDE 25 MG TABLET (FP) PO SCH (09:50)
[2017-02-01] MEDS: NAPROXEN 500 MG TABLET (FP) PO SCH ×2 (09:50→21:36)
[2017-02-01] MEDS: NICOTINE 7 MG/24 HOURS TOPICAL PATCH TD SCH (09:50)
[2017-02-01] MEDS: ASPIRIN COATED 81 MG TABLET.EC PO SCH (09:50)
[2017-02-01] MEDS: LIDOCAINE 5% TOPICAL PATCH TP SCH (09:50)
[2017-02-01] MEDS: PANTOPRAZOLE 40 MG TABLET (FP) PO SCH (09:51)
[2017-02-01] MEDS: ATENOLOL 25 MG TABLET (FP) PO SCH (09:52)
[2017-02-01] MEDS: OLANZapine 10 MG TABLET PO SCH ×2 (09:53→21:36)
[2017-02-01] MEDS: buPROPion HCL 100 MG TABLET PO SCH (09:53)
[2017-02-01] MEDS: ATORVASTATIN CA 10 MG TABLET (FP) PO SCH (21:36)
[2017-02-01] MEDS: THIAMINE HCL 100 MG TABLET (FP) PO SCH (21:36)
[2017-02-01] MEDS: AMITRIPTYLINE HCL 25 MG TABLET (FP) PO SCH (21:36)
[2017-02-01] MEDS: LIDOCAINE PATCH REMOVAL MC SCH (21:37)
[2017-02-02] MEDS: CYCLOBENZAPRINE HCL 10 MG TABLET (FP) PO SCH ×3 (06:29→21:15)
[2017-02-02] MEDS: NICOTINE POLACRILEX 2 MG GUM BUC PRN ×4 (06:30→21:16)
[2017-02-02] MEDS: buPROPion HCL 100 MG TABLET PO SCH (09:54)
[2017-02-02] MEDS: ATENOLOL 25 MG TABLET (FP) PO SCH (09:54)
[2017-02-02] MEDS: ASPIRIN COATED 81 MG TABLET.EC PO SCH (09:54)
[2017-02-02] MEDS: PRENATAL VITAMINS W/ FOLIC ACID TABLET (FP) PO SCH (09:54)
[2017-02-02] MEDS: PANTOPRAZOLE 40 MG TABLET (FP) PO SCH (09:54)
[2017-02-02] MEDS: NAPROXEN 500 MG TABLET (FP) PO SCH ×2 (09:54→21:15)
[2017-02-02] MEDS: OLANZapine 10 MG TABLET PO SCH ×2 (09:54→21:15)
[2017-02-02] MEDS: HYDROCHLOROTHIAZIDE 25 MG TABLET (FP) PO SCH (09:55)
[2017-02-02] MEDS: LIDOCAINE 5% TOPICAL PATCH TP SCH (09:55)
[2017-02-02] MEDS: NICOTINE 7 MG/24 HOURS TOPICAL PATCH TD SCH (09:55)
[2017-02-02] MEDS: amLODIPine BESYLATE 10 MG TABLET (FP) PO SCH (09:55)
[2017-02-02] MEDS: IBUPROFEN 400 MG TABLET (FP) PO PRN (18:47)
[2017-02-02] MEDS: THIAMINE HCL 100 MG TABLET (FP) PO SCH (21:15)
[2017-02-02] MEDS: ATORVASTATIN CA 10 MG TABLET (FP) PO SCH (21:15)
[2017-02-02] MEDS: AMITRIPTYLINE HCL 25 MG TABLET (FP) PO SCH (21:15)
[2017-02-02] MEDS: LIDOCAINE PATCH REMOVAL MC SCH (21:15)
[2017-02-03] MEDS: CYCLOBENZAPRINE HCL 10 MG TABLET (FP) PO SCH ×3 (06:31→21:09)
[2017-02-03] MEDS: NICOTINE POLACRILEX 2 MG GUM BUC PRN ×5 (06:31→19:00)
[2017-02-03] MEDS: LIDOCAINE 5% TOPICAL PATCH TP SCH (10:01)
[2017-02-03] MEDS: OLANZapine 10 MG TABLET PO SCH ×2 (10:01→21:09)
[2017-02-03] MEDS: buPROPion HCL 100 MG TABLET PO SCH (10:01)
[2017-02-03] MEDS: NAPROXEN 500 MG TABLET (FP) PO SCH ×2 (10:02→21:09)
[2017-02-03] MEDS: ASPIRIN COATED 81 MG TABLET.EC PO SCH (10:02)
[2017-02-03] MEDS: NICOTINE 7 MG/24 HOURS TOPICAL PATCH TD SCH (10:02)
[2017-02-03] MEDS: PANTOPRAZOLE 40 MG TABLET (FP) PO SCH (10:02)
[2017-02-03] MEDS: PRENATAL VITAMINS W/ FOLIC ACID TABLET (FP) PO SCH (10:02)
[2017-02-03] MEDS: ATENOLOL 25 MG TABLET (FP) PO SCH (10:02)
[2017-02-03] MEDS: amLODIPine BESYLATE 10 MG TABLET (FP) PO SCH (10:02)
[2017-02-03] MEDS: HYDROCHLOROTHIAZIDE 25 MG TABLET (FP) PO SCH (10:02)
[2017-02-03] MEDS: TOLNAFTATE 1% CREAM 15 GM TUBE TP SCH ×2 (12:00→21:10)
[2017-02-03] MEDS: IBUPROFEN 400 MG TABLET (FP) PO PRN ×2 (12:06→18:59)
[2017-02-03] MEDS: AMITRIPTYLINE HCL 25 MG TABLET (FP) PO SCH (21:09)
[2017-02-03] MEDS: THIAMINE HCL 100 MG TABLET (FP) PO SCH (21:09)
[2017-02-03] MEDS: ATORVASTATIN CA 10 MG TABLET (FP) PO SCH (21:09)
[2017-02-03] MEDS: LIDOCAINE PATCH REMOVAL MC SCH (21:09)
[2017-02-04] MEDS: CYCLOBENZAPRINE HCL 10 MG TABLET (FP) PO SCH ×3 (06:24→21:10)
[2017-02-04] MEDS: NICOTINE POLACRILEX 2 MG GUM BUC PRN ×5 (06:25→21:12)
[2017-02-04] MEDS: amLODIPine BESYLATE 10 MG TABLET (FP) PO SCH (09:32)
[2017-02-04] MEDS: ASPIRIN COATED 81 MG TABLET.EC PO SCH (09:32)
[2017-02-04] MEDS: NAPROXEN 500 MG TABLET (FP) PO SCH ×2 (09:32→21:10)
[2017-02-04] MEDS: buPROPion HCL 100 MG TABLET PO SCH (09:32)
[2017-02-04] MEDS: PRENATAL VITAMINS W/ FOLIC ACID TABLET (FP) PO SCH (09:32)
[2017-02-04] MEDS: OLANZapine 10 MG TABLET PO SCH ×2 (09:32→21:10)
[2017-02-04] MEDS: ATENOLOL 25 MG TABLET (FP) PO SCH (09:32)
[2017-02-04] MEDS: PANTOPRAZOLE 40 MG TABLET (FP) PO SCH (09:33)
[2017-02-04] MEDS: LIDOCAINE 5% TOPICAL PATCH TP SCH (09:33)
[2017-02-04] MEDS: NICOTINE 7 MG/24 HOURS TOPICAL PATCH TD SCH (09:33)
[2017-02-04] MEDS: HYDROCHLOROTHIAZIDE 25 MG TABLET (FP) PO SCH (09:33)
[2017-02-04] MEDS: TOLNAFTATE 1% CREAM 15 GM TUBE TP SCH ×2 (09:34→21:10)
[2017-02-04] MEDS: THIAMINE HCL 100 MG TABLET (FP) PO SCH (21:10)
[2017-02-04] MEDS: ATORVASTATIN CA 10 MG TABLET (FP) PO SCH (21:10)
[2017-02-04] MEDS: AMITRIPTYLINE HCL 25 MG TABLET (FP) PO SCH (21:10)
[2017-02-04] MEDS: LIDOCAINE PATCH REMOVAL MC SCH (21:12)
[2017-02-05] MEDS: IBUPROFEN 400 MG TABLET (FP) PO PRN (00:33)
[2017-02-05] MEDS: CYCLOBENZAPRINE HCL 10 MG TABLET (FP) PO SCH ×3 (07:28→21:15)
[2017-02-05] MEDS: buPROPion HCL 100 MG TABLET PO SCH (10:05)
[2017-02-05] MEDS: ASPIRIN COATED 81 MG TABLET.EC PO SCH (10:05)
[2017-02-05] MEDS: ATENOLOL 25 MG TABLET (FP) PO SCH (10:05)
[2017-02-05] MEDS: PRENATAL VITAMINS W/ FOLIC ACID TABLET (FP) PO SCH (10:05)
[2017-02-05] MEDS: OLANZapine 10 MG TABLET PO SCH ×2 (10:06→21:15)
[2017-02-05] MEDS: HYDROCHLOROTHIAZIDE 25 MG TABLET (FP) PO SCH (10:06)
[2017-02-05] MEDS: PANTOPRAZOLE 40 MG TABLET (FP) PO SCH (10:06)
[2017-02-05] MEDS: LIDOCAINE 5% TOPICAL PATCH TP SCH (10:06)
[2017-02-05] MEDS: NAPROXEN 500 MG TABLET (FP) PO SCH ×2 (10:06→21:15)
[2017-02-05] MEDS: NICOTINE 7 MG/24 HOURS TOPICAL PATCH TD SCH (10:07)
[2017-02-05] MEDS: amLODIPine BESYLATE 10 MG TABLET (FP) PO SCH (10:07)
[2017-02-05] MEDS: TOLNAFTATE 1% CREAM 15 GM TUBE TP SCH ×2 (10:07→21:16)
[2017-02-05] MEDS: NICOTINE POLACRILEX 2 MG GUM BUC PRN ×4 (10:08→21:15)
[2017-02-05] MEDS: THIAMINE HCL 100 MG TABLET (FP) PO SCH (21:14)
[2017-02-05] MEDS: ATORVASTATIN CA 10 MG TABLET (FP) PO SCH (21:15)
[2017-02-05] MEDS: LIDOCAINE PATCH REMOVAL MC SCH (21:15)
[2017-02-05] MEDS: AMITRIPTYLINE HCL 25 MG TABLET (FP) PO SCH (21:15)
[2017-02-06] MEDS: NICOTINE POLACRILEX 2 MG GUM BUC PRN ×5 (01:24→21:22)
[2017-02-06] MEDS: IBUPROFEN 400 MG TABLET (FP) PO PRN (01:24)
[2017-02-06] MEDS: CYCLOBENZAPRINE HCL 10 MG TABLET (FP) PO SCH ×3 (06:12→21:20)
[2017-02-06] MEDS: PANTOPRAZOLE 40 MG TABLET (FP) PO SCH (09:56)
[2017-02-06] MEDS: PRENATAL VITAMINS W/ FOLIC ACID TABLET (FP) PO SCH (09:56)
[2017-02-06] MEDS: ASPIRIN COATED 81 MG TABLET.EC PO SCH (09:56)
[2017-02-06] MEDS: ATENOLOL 25 MG TABLET (FP) PO SCH (09:56)
[2017-02-06] MEDS: NAPROXEN 500 MG TABLET (FP) PO SCH ×2 (09:56→21:20)
[2017-02-06] MEDS: buPROPion HCL 100 MG TABLET PO SCH (09:56)
[2017-02-06] MEDS: NICOTINE 7 MG/24 HOURS TOPICAL PATCH TD SCH (09:57)
[2017-02-06] MEDS: HYDROCHLOROTHIAZIDE 25 MG TABLET (FP) PO SCH (09:57)
[2017-02-06] MEDS: amLODIPine BESYLATE 10 MG TABLET (FP) PO SCH (09:57)
[2017-02-06] MEDS: LIDOCAINE 5% TOPICAL PATCH TP SCH (09:57)
[2017-02-06] MEDS: OLANZapine 10 MG TABLET PO SCH ×2 (09:57→21:20)
[2017-02-06] MEDS: TOLNAFTATE 1% CREAM 15 GM TUBE TP SCH ×2 (10:00→21:22)
--- NOTE | 2017-02-06 11:54 | PN ---
Progress Note (short form) - Note Progress Note: c/o back pain, current pain level with naprosyn/lidoderm patch/motrin is 2/10, which is the better than as outpatient Plan: add hot pack prn during day to help with stiffness, will not add any further medications since pain is better than as outpatient bengay at night
[2017-02-06] MEDS: AMITRIPTYLINE HCL 25 MG TABLET (FP) PO SCH (21:20)
[2017-02-06] MEDS: ATORVASTATIN CA 10 MG TABLET (FP) PO SCH (21:20)
[2017-02-06] MEDS: THIAMINE HCL 100 MG TABLET (FP) PO SCH (21:20)
[2017-02-06] MEDS: METHYL SALICYLATE/MENTHOL OINT 30 GM TUBE TP SCH (21:21)
[2017-02-06] MEDS: LIDOCAINE PATCH REMOVAL MC SCH (21:21)
[2017-02-07] MEDS: IBUPROFEN 400 MG TABLET (FP) PO PRN (03:31)
[2017-02-07] MEDS: CYCLOBENZAPRINE HCL 10 MG TABLET (FP) PO SCH ×3 (06:21→21:14)
[2017-02-07] MEDS: NICOTINE POLACRILEX 2 MG GUM BUC PRN ×5 (06:22→21:15)
[2017-02-07] MEDS: NAPROXEN 500 MG TABLET (FP) PO SCH ×2 (09:57→21:14)
[2017-02-07] MEDS: OLANZapine 10 MG TABLET PO SCH ×2 (09:57→21:14)
[2017-02-07] MEDS: PRENATAL VITAMINS W/ FOLIC ACID TABLET (FP) PO SCH (09:57)
[2017-02-07] MEDS: ATENOLOL 25 MG TABLET (FP) PO SCH (09:57)
[2017-02-07] MEDS: buPROPion HCL 100 MG TABLET PO SCH (09:58)
[2017-02-07] MEDS: PANTOPRAZOLE 40 MG TABLET (FP) PO SCH (09:58)
[2017-02-07] MEDS: HYDROCHLOROTHIAZIDE 25 MG TABLET (FP) PO SCH (09:58)
[2017-02-07] MEDS: NICOTINE 7 MG/24 HOURS TOPICAL PATCH TD SCH (09:58)
[2017-02-07] MEDS: amLODIPine BESYLATE 10 MG TABLET (FP) PO SCH (09:58)
[2017-02-07] MEDS: ASPIRIN COATED 81 MG TABLET.EC PO SCH (09:58)
[2017-02-07] MEDS: TOLNAFTATE 1% CREAM 15 GM TUBE TP SCH ×2 (09:59→21:14)
[2017-02-07] MEDS: LIDOCAINE 5% TOPICAL PATCH TP SCH (09:59)
[2017-02-07] MEDS: AMITRIPTYLINE HCL 25 MG TABLET (FP) PO SCH (21:14)
[2017-02-07] MEDS: THIAMINE HCL 100 MG TABLET (FP) PO SCH (21:14)
[2017-02-07] MEDS: METHYL SALICYLATE/MENTHOL OINT 30 GM TUBE TP SCH (21:14)
[2017-02-07] MEDS: ATORVASTATIN CA 10 MG TABLET (FP) PO SCH (21:14)
[2017-02-07] MEDS: LIDOCAINE PATCH REMOVAL MC SCH (21:15)
[2017-02-08] MEDS: NICOTINE POLACRILEX 2 MG GUM BUC PRN ×5 (06:26→21:17)
[2017-02-08] MEDS: CYCLOBENZAPRINE HCL 10 MG TABLET (FP) PO SCH ×3 (06:26→21:15)
[2017-02-08] MEDS: NAPROXEN 500 MG TABLET (FP) PO SCH ×2 (10:24→21:15)
[2017-02-08] MEDS: amLODIPine BESYLATE 10 MG TABLET (FP) PO SCH (10:24)
[2017-02-08] MEDS: ASPIRIN COATED 81 MG TABLET.EC PO SCH (10:24)
[2017-02-08] MEDS: HYDROCHLOROTHIAZIDE 25 MG TABLET (FP) PO SCH (10:24)
[2017-02-08] MEDS: TOLNAFTATE 1% CREAM 15 GM TUBE TP SCH ×2 (10:24→21:17)
[2017-02-08] MEDS: OLANZapine 10 MG TABLET PO SCH ×2 (10:24→21:15)
[2017-02-08] MEDS: buPROPion HCL 100 MG TABLET PO SCH (10:24)
[2017-02-08] MEDS: ATENOLOL 25 MG TABLET (FP) PO SCH (10:24)
[2017-02-08] MEDS: PRENATAL VITAMINS W/ FOLIC ACID TABLET (FP) PO SCH (10:24)
[2017-02-08] MEDS: PANTOPRAZOLE 40 MG TABLET (FP) PO SCH (10:24)
[2017-02-08] MEDS: NICOTINE 7 MG/24 HOURS TOPICAL PATCH TD SCH (10:25)
[2017-02-08] MEDS: LIDOCAINE 5% TOPICAL PATCH TP SCH (10:25)
--- NOTE | 2017-02-08 12:59 | PN ---
S Progress Note Note: patient was taking naprosyn atc in addition to his prn motrin, will d/c motrin start neurontin 100mg tid can titirateup as tolerated to effect max dose 3600mg daily.
[2017-02-08] MEDS: GABAPENTIN 100 MG CAPSULE (FP) PO SCH ×2 (14:00→21:16)
[2017-02-08] MEDS ORDERED: NICOTINE POLACRILEX 2 MG GUM BUC ONE (14:03)
[2017-02-08] MEDS: THIAMINE HCL 100 MG TABLET (FP) PO SCH (21:15)
[2017-02-08] MEDS: AMITRIPTYLINE HCL 25 MG TABLET (FP) PO SCH (21:15)
[2017-02-08] MEDS: ATORVASTATIN CA 10 MG TABLET (FP) PO SCH (21:15)
[2017-02-08] MEDS: LIDOCAINE PATCH REMOVAL MC SCH (21:16)
[2017-02-08] MEDS: METHYL SALICYLATE/MENTHOL OINT 30 GM TUBE TP SCH (21:18)
[2017-02-09] MEDS: NICOTINE POLACRILEX 2 MG GUM BUC PRN ×6 (04:04→21:17)
[2017-02-09] MEDS: CYCLOBENZAPRINE HCL 10 MG TABLET (FP) PO SCH ×3 (06:26→21:16)
[2017-02-09] MEDS: GABAPENTIN 100 MG CAPSULE (FP) PO SCH ×3 (06:26→21:16)
[2017-02-09] MEDS: PRENATAL VITAMINS W/ FOLIC ACID TABLET (FP) PO SCH (09:44)
[2017-02-09] MEDS: NAPROXEN 500 MG TABLET (FP) PO SCH ×2 (09:45→21:16)
[2017-02-09] MEDS: ATENOLOL 25 MG TABLET (FP) PO SCH (09:45)
[2017-02-09] MEDS: ASPIRIN COATED 81 MG TABLET.EC PO SCH (09:45)
[2017-02-09] MEDS: PANTOPRAZOLE 40 MG TABLET (FP) PO SCH (09:45)
[2017-02-09] MEDS: OLANZapine 10 MG TABLET PO SCH ×2 (09:45→21:16)
[2017-02-09] MEDS: HYDROCHLOROTHIAZIDE 25 MG TABLET (FP) PO SCH (09:45)
[2017-02-09] MEDS: buPROPion HCL 100 MG TABLET PO SCH (09:45)
[2017-02-09] MEDS: LIDOCAINE 5% TOPICAL PATCH TP SCH (09:46)
[2017-02-09] MEDS: NICOTINE 7 MG/24 HOURS TOPICAL PATCH TD SCH (09:46)
[2017-02-09] MEDS: amLODIPine BESYLATE 10 MG TABLET (FP) PO SCH (09:46)
[2017-02-09] MEDS: TOLNAFTATE 1% CREAM 15 GM TUBE TP SCH ×2 (09:47→21:17)
--- NOTE | 2017-02-09 10:37 | PN ---
S Progress Note Note: Ordered 2 fasting BGMs, 02/10 at 6:00am and 02/11 at 6:00am as per [facility] digger recommendation
[2017-02-09] MEDS: AMITRIPTYLINE HCL 25 MG TABLET (FP) PO SCH (21:16)
[2017-02-09] MEDS: METHYL SALICYLATE/MENTHOL OINT 30 GM TUBE TP SCH (21:16)
[2017-02-09] MEDS: ATORVASTATIN CA 10 MG TABLET (FP) PO SCH (21:16)
[2017-02-09] MEDS: THIAMINE HCL 100 MG TABLET (FP) PO SCH (21:16)
[2017-02-09] MEDS: LIDOCAINE PATCH REMOVAL MC SCH (21:17)
[2017-02-10] MEDS: GABAPENTIN 100 MG CAPSULE (FP) PO SCH ×3 (06:16→21:14)
[2017-02-10] MEDS: CYCLOBENZAPRINE HCL 10 MG TABLET (FP) PO SCH ×3 (06:16→21:15)
[2017-02-10] MEDS: NICOTINE POLACRILEX 2 MG GUM BUC PRN ×5 (06:17→21:15)
[2017-02-10] MEDS: HYDROCHLOROTHIAZIDE 25 MG TABLET (FP) PO SCH (09:50)
[2017-02-10] MEDS: PRENATAL VITAMINS W/ FOLIC ACID TABLET (FP) PO SCH (09:50)
[2017-02-10] MEDS: NAPROXEN 500 MG TABLET (FP) PO SCH ×2 (09:50→21:15)
[2017-02-10] MEDS: ATENOLOL 25 MG TABLET (FP) PO SCH (09:50)
[2017-02-10] MEDS: buPROPion HCL 100 MG TABLET PO SCH (09:50)
[2017-02-10] MEDS: ASPIRIN COATED 81 MG TABLET.EC PO SCH (09:50)
[2017-02-10] MEDS: LIDOCAINE 5% TOPICAL PATCH TP SCH (09:50)
[2017-02-10] MEDS: OLANZapine 10 MG TABLET PO SCH ×2 (09:50→21:16)
[2017-02-10] MEDS: PANTOPRAZOLE 40 MG TABLET (FP) PO SCH (09:50)
[2017-02-10] MEDS: NICOTINE 7 MG/24 HOURS TOPICAL PATCH TD SCH (09:51)
[2017-02-10] MEDS: TOLNAFTATE 1% CREAM 15 GM TUBE TP SCH ×2 (09:51→21:15)
[2017-02-10] MEDS: amLODIPine BESYLATE 10 MG TABLET (FP) PO SCH (09:51)
[2017-02-10] MEDS: THIAMINE HCL 100 MG TABLET (FP) PO SCH (21:14)
[2017-02-10] MEDS: AMITRIPTYLINE HCL 25 MG TABLET (FP) PO SCH (21:14)
[2017-02-10] MEDS: ATORVASTATIN CA 10 MG TABLET (FP) PO SCH (21:15)
[2017-02-10] MEDS: METHYL SALICYLATE/MENTHOL OINT 30 GM TUBE TP SCH (21:15)
[2017-02-10] MEDS: LIDOCAINE PATCH REMOVAL MC SCH (21:15)
[2017-02-11] MEDS: NICOTINE POLACRILEX 2 MG GUM BUC PRN ×7 (04:54→21:18)
[2017-02-11] MEDS: GABAPENTIN 100 MG CAPSULE (FP) PO SCH ×3 (06:07→21:16)
[2017-02-11] MEDS: CYCLOBENZAPRINE HCL 10 MG TABLET (FP) PO SCH ×3 (06:07→21:15)
[2017-02-11] MEDS: ASPIRIN COATED 81 MG TABLET.EC PO SCH (09:28)
[2017-02-11] MEDS: PANTOPRAZOLE 40 MG TABLET (FP) PO SCH (09:28)
[2017-02-11] MEDS: ATENOLOL 25 MG TABLET (FP) PO SCH (09:28)
[2017-02-11] MEDS: OLANZapine 10 MG TABLET PO SCH ×2 (09:28→21:16)
[2017-02-11] MEDS: PRENATAL VITAMINS W/ FOLIC ACID TABLET (FP) PO SCH (09:28)
[2017-02-11] MEDS: buPROPion HCL 100 MG TABLET PO SCH (09:28)
[2017-02-11] MEDS: amLODIPine BESYLATE 10 MG TABLET (FP) PO SCH (09:29)
[2017-02-11] MEDS: HYDROCHLOROTHIAZIDE 25 MG TABLET (FP) PO SCH (09:29)
[2017-02-11] MEDS: NICOTINE 7 MG/24 HOURS TOPICAL PATCH TD SCH (09:29)
[2017-02-11] MEDS: LIDOCAINE 5% TOPICAL PATCH TP SCH (09:29)
[2017-02-11] MEDS: TOLNAFTATE 1% CREAM 15 GM TUBE TP SCH ×2 (09:29→21:18)
[2017-02-11] MEDS: NAPROXEN 500 MG TABLET (FP) PO SCH ×2 (09:30→21:15)
[2017-02-11] MEDS: AMITRIPTYLINE HCL 25 MG TABLET (FP) PO SCH (21:15)
[2017-02-11] MEDS: THIAMINE HCL 100 MG TABLET (FP) PO SCH (21:15)
[2017-02-11] MEDS: LIDOCAINE PATCH REMOVAL MC SCH (21:16)
[2017-02-11] MEDS: ATORVASTATIN CA 10 MG TABLET (FP) PO SCH (21:17)
[2017-02-11] MEDS: METHYL SALICYLATE/MENTHOL OINT 30 GM TUBE TP SCH (21:18)
[2017-02-12] MEDS: NICOTINE POLACRILEX 2 MG GUM BUC PRN ×5 (06:26→21:17)
[2017-02-12] MEDS: GABAPENTIN 100 MG CAPSULE (FP) PO SCH ×3 (06:26→21:15)
[2017-02-12] MEDS: CYCLOBENZAPRINE HCL 10 MG TABLET (FP) PO SCH ×3 (06:26→21:14)
[2017-02-12] MEDS: ASPIRIN COATED 81 MG TABLET.EC PO SCH (09:30)
[2017-02-12] MEDS: NAPROXEN 500 MG TABLET (FP) PO SCH ×2 (09:30→21:14)
[2017-02-12] MEDS: PANTOPRAZOLE 40 MG TABLET (FP) PO SCH (09:30)
[2017-02-12] MEDS: PRENATAL VITAMINS W/ FOLIC ACID TABLET (FP) PO SCH (09:30)
[2017-02-12] MEDS: buPROPion HCL 100 MG TABLET PO SCH (09:30)
[2017-02-12] MEDS: ATENOLOL 25 MG TABLET (FP) PO SCH (09:30)
[2017-02-12] MEDS: HYDROCHLOROTHIAZIDE 25 MG TABLET (FP) PO SCH (09:30)
[2017-02-12] MEDS: OLANZapine 10 MG TABLET PO SCH ×2 (09:30→21:15)
[2017-02-12] MEDS: NICOTINE 7 MG/24 HOURS TOPICAL PATCH TD SCH (09:31)
[2017-02-12] MEDS: TOLNAFTATE 1% CREAM 15 GM TUBE TP SCH ×2 (09:31→21:15)
[2017-02-12] MEDS: amLODIPine BESYLATE 10 MG TABLET (FP) PO SCH (09:31)
[2017-02-12] MEDS: LIDOCAINE 5% TOPICAL PATCH TP SCH (09:31)
[2017-02-12] MEDS: THIAMINE HCL 100 MG TABLET (FP) PO SCH (21:14)
[2017-02-12] MEDS: AMITRIPTYLINE HCL 25 MG TABLET (FP) PO SCH (21:14)
[2017-02-12] MEDS: METHYL SALICYLATE/MENTHOL OINT 30 GM TUBE TP SCH (21:15)
[2017-02-12] MEDS: ATORVASTATIN CA 10 MG TABLET (FP) PO SCH (21:15)
[2017-02-12] MEDS: LIDOCAINE PATCH REMOVAL MC SCH (21:15)
[2017-02-13] MEDS: CYCLOBENZAPRINE HCL 10 MG TABLET (FP) PO SCH (06:14)
[2017-02-13] MEDS: GABAPENTIN 100 MG CAPSULE (FP) PO SCH (06:14)
[2017-02-13] MEDS: NICOTINE POLACRILEX 2 MG GUM BUC PRN (06:15)
[2017-02-13 06:40] VITALS: TEMP 97.4
--- NOTE | 2017-02-13 08:33 | PN ---
Psychiatric Progress Note Vital Signs: Vital Signs Period Temp Pulse Resp BP Sys/Brian Pulse Ox Last 24 Hr 97.4 F 80 18-18 143/91 Date of Session: 02/13/17 Chief Complaint:: discharge visist HPI: Patient has addressed alcohol, cocaine, nicotine dependence , cannabis abuse comorbid Schizoaffective disorder. ROS: Hypertension,hypercholesterolemia and arthritis medically managed. Current Medications: Active Medications Generic Name Dose Route Start Last Admin Trade Name Freq PRN Reason Stop Dose Admin Acetaminophen 650 mg 01/30/17 16:02 01/30/17 17:34 Tylenol - PO 650 mg Q4H PRN Administration FEVER OR PAIN Al Hydroxide/Mg Hydroxide 30 ml 01/30/17 16:02 Mylanta Oral Suspension - PO Q6H PRN DYSPEPSIA Amitriptyline HCl 25 mg 01/31/17 22:00 02/12/17 21:14 Elavil - PO 25 mg HS ARLETH Administration Amlodipine Besylate 10 mg 01/31/17 10:00 02/12/17 09:31 Norvasc - PO 10 mg DAILY ARLETH Administration Aspirin 81 mg 01/31/17 10:00 02/12/17 09:30 Ecotrin - PO 81 mg DAILY ARLETH Administration Atenolol 25 mg 01/31/17 10:00 02/12/17 09:30 Tenormin - PO 25 mg DAILY ARLETH Administration Atorvastatin Calcium 10 mg 01/30/17 22:00 02/12/17 21:15 Lipitor - PO 10 mg HS ARLETH Administration Bupropion HCl 100 mg 01/31/17 10:00 02/12/17 09:30 Wellbutrin - PO 100 mg DAILY ARLETH Administration Cyclobenzaprine HCl 10 mg 01/31/17 14:27 02/13/17 06:14 Flexeril - PO 10 mg TID ARLETH Administration Eucalyptus/Menthol/Phenol/Sorbitol 1 each 01/30/17 16:02 Cepastat Lozenge - MM Q4H PRN SORE THROAT Gabapentin 100 mg 02/08/17 14:00 02/13/17 06:14 Neurontin - PO 100 mg TID ARLETH Administration Guaifenesin 10 ml 01/30/17 16:02 Robitussin Dm - PO Q6H PRN COUGH Hydrochlorothiazide 25 mg 01/31/17 10:00 02/12/17 09:30 Hctz - PO 25 mg DAILY ARLETH Administration Hydroxyzine Pamoate 50 mg 01/30/17 16:02 Vistaril - PO Q4H PRN AGITATION Lidocaine 1 patch 01/31/17 14:28 02/12/17 09:31 Lidoderm Patch - TP 1 patch DAILY ARLETH Administration Loperamide HCl 4 mg 01/30/17 16:02 Imodium - PO Q6H PRN DIARRHEA Magnesium Citrate 300 ml 01/30/17 16:02 Citroma - PO Q48H PRN CONSTIPATION Magnesium Hydroxide 30 ml 01/30/17 16:02 Milk Of Magnesia - PO DAILY PRN CONSTIPATION Methyl Salicylate 1 applic 02/06/17 22:00 02/12/17 21:15 Robin-Yates - TP 1 applic HS ARLETH Administration Miscellaneous 1 each 01/31/17 22:00 02/12/17 21:15 Lidoderm Patch Removal MC Not Given DAILY@2200 ARLETH Naproxen 500 mg 01/31/17 22:00 02/12/17 21:14 Naprosyn - PO 500 mg BID ARLETH Administration Nicotine 7 mg 01/31/17 10:00 02/12/17 09:31 Nicoderm Patch - TD Not Given DAILY ARLETH Nicotine Polacrilex 2 mg 01/30/17 16:02 02/13/17 06:15 Nicorette Gum - BUC 2 mg Q2H PRN Administration NICOTINE REPLACEMENT RX Olanzapine 10 mg 01/30/17 22:00 02/12/17 21:15 Zyprexa - PO 10 mg BID ARLETH Administration Pantoprazole Sodium 40 mg 01/31/17 14:29 02/12/17 09:30 Protonix - PO 40 mg DAILY ARLETH Administration Multivit/Folic Acid/Iron 1 tab 01/31/17 10:00 02/12/17 09:30 Vitamins (Sjr) - PO 1 tab DAILY ARLETH Administration Pseudoephedrine/Triprolidine 1 combo 01/30/17 16:02 Actifed - PO TID PRN NASAL CONGESTION Thiamine HCl 100 mg 01/30/17 22:00 02/12/17 21:14 Vitamin B1 - PO 100 mg HS ARLETH Administration Tolnaftate 1 applic 02/03/17 11:00 02/12/17 21:15 Tinactin 1% Cream - TP Not Given BID ARLETH Current Side Effect: No Lab tests ordered: No Lab tests reviewed: Yes Provider note:: Patient has completed today his treatment and met his treatment goals, he will continue to address his issues at the [facility]d program. The patient aknowledges considerable benefts from this rehabilitation program, he gained insight into the importance of changing attitudes for the utilization of supports available to prevent relapes. He identified behaviors which contribute to relapse and learned skills through this program that he will utilize to maintain sobriety, he verbalized he is motivated to stay abstinent and adherent to every aspects of his aftercare treatment plans. Patient reports Wellbutrin and Zyprexa have been effective for the management of his mental condition, medications were tolerated well, no side -effects reported, sripts for 30 days provided, he will f/u by his psychiatrist at [place], patient is stable for discharge today. Total face to face time:: 20 Mental Status Exam - Mental Status Exam Alert and Oriented to: Time, Place, Person Cognitive Function: Good Patient Appearance: Well Groomed Mood: Hopeful Affect: Appropriate, Mood Congruent Patient Behavior: Appropriate, Cooperative Speech Pattern: Appropriate Voice Loudness: Normal Thought Process: Intact, Goal Oriented Thought Disorder: Not Present Hallucinations: Denies Suicidal Ideation: Denies Homicidal Ideation: Denies Insight/Judgement: Fair Sleep: Fair Appetite: Fair Muscle strength/Tone: Normal Gait/Station: Normal Psychiatric Treatment Plan - Problem List (1) Cannabis abuse Current Visit: Yes (2) Alcohol dependence Current Visit: No (3) Cocaine dependence Current Visit: No (4) Nicotine dependence Current Visit: No Qualifiers: Nicotine product type: cigarettes Substance use status: in withdrawal Qualified Code(s): F17.213 - Nicotine dependence, cigarettes, with withdrawal (5) Schizoaffective disorder Current Visit: No Qualifiers: Schizoaffective disorder type: depressive Qualified Code(s): F25.1 - Schizoaffective disorder, depressive type
[2017-02-13] MEDS: OLANZapine 10 MG TABLET PO SCH (09:50)
[2017-02-13] MEDS: HYDROCHLOROTHIAZIDE 25 MG TABLET (FP) PO SCH (09:50)
[2017-02-13] MEDS: PANTOPRAZOLE 40 MG TABLET (FP) PO SCH (09:50)
[2017-02-13] MEDS: NICOTINE 7 MG/24 HOURS TOPICAL PATCH TD SCH (09:51)
[2017-02-13] MEDS: amLODIPine BESYLATE 10 MG TABLET (FP) PO SCH (09:51)
[2017-02-13] MEDS: NAPROXEN 500 MG TABLET (FP) PO SCH (09:51)
[2017-02-13] MEDS: ATENOLOL 25 MG TABLET (FP) PO SCH (09:51)
[2017-02-13] MEDS: TOLNAFTATE 1% CREAM 15 GM TUBE TP SCH (09:51)
[2017-02-13] MEDS: PRENATAL VITAMINS W/ FOLIC ACID TABLET (FP) PO SCH (09:51)
[2017-02-13] MEDS: buPROPion HCL 100 MG TABLET PO SCH (09:51)
[2017-02-13] MEDS: ASPIRIN COATED 81 MG TABLET.EC PO SCH (09:51)
[2017-02-13] MEDS: LIDOCAINE 5% TOPICAL PATCH TP SCH (09:51)
[2017-02-13 11:09] VITALS: BP 134/74; PULSE 87
== END 2017-02-13 10:45 | disposition home or self-care (01) | DRG 772 ==
LOC: YASAS 12:47 → Y5N 12:48
PROVIDERS: ADMIT Psychiatry & Neurology Psychiatry; ATTEND Psychiatry & Neurology Psychiatry
PROC: HZ42ZZZ Group Counseling for Substance Abuse Treatment, Cognitive-Behavioral (ICD-10-PCS; principal; 2017-01-30)
DX: F10.20 Alcohol dependence, uncomplicated (principal); F14.20 Cocaine dependence, uncomplicated; F12.10 Cannabis abuse, uncomplicated; F17.213 Nicotine dependence, cigarettes, with withdrawal; F25.1 Schizoaffective disorder, depressive type; I10 Essential (primary) hypertension; E78.00 Pure hypercholesterolemia, unspecified; R76.11 Nonspecific reaction to tuberculin skin test without active tuberculosis; M19.90 Unspecified osteoarthritis, unspecified site; M51.17 Intervertebral disc disorders with radiculopathy, lumbosacral region; G89.29 Other chronic pain; Z96.641 Presence of right artificial hip joint

== ENCOUNTER 2017-04-15 18:28 | Inpatient (IN) | payer OTHER ==
[2017-04-15 20:55] VITALS: BMI 33.7
--- NOTE | 2017-04-15 23:13 | HP ---
CIWA Score - CIWA Score Nausea/Vomitin Muscle Tremors: 4-Moderate,w/Arms Extend Anxiety: 4-Mod. Anxious/Guarded Agitation: 4-Moderately Restless Paroxysmal Sweats: 1-Minimal Palms Moist Orientation: 0-Oriented Tacttile Disturbances: 0-None Auditory Disturbances: 0-None Visual Disturbances: 0-None Headache: 2-Mild CIWA-Ar Total Score: 18 Admission ROS S - HPI Chief Complaint: Alcohol withdrawal symptoms Allergies/Adverse Reactions: Allergies Allergy/AdvReac Type Severity Reaction Status Date / Time enalapril [Enalapril] Allergy Swelling Verified 12/02/16 21:11 haloperidol [From Haldol] Allergy Verified 12/02/16 21:11 haloperidol lactate Allergy Verified 12/02/16 21:11 [From Haldol] levofloxacin [From Levaquin] Allergy Hives Verified 12/02/16 21:11 ,Enalapril, Haldol, Levaquin Allergy Severe Hives Uncoded 12/02/16 21:11 History of Present Illness: 61 years old male with a long history of alcohol dependence is seeking admission to detox. Patient has been in previous multiple detox and reports 30 months of sobriety. He has medical history of HTN, hypercholesterolemia, arthritis and depression. He reports suicide attempt in November 2016 and denies suicidal ideation at this time. Exam Limitations: No Limitations - Ebola screening Have you traveled outside of the country in the last 21 days: No Have you had contact with anyone from an Ebola affected area: No Have you been sick,other than usual withdrawal symptoms: No Do you have a fever: No - Review of Systems Constitutional: Chills, Loss of Appetite, Malaise, Night Sweats, Changes in sleep EENT: reports: Sinus Pressure Respiratory: reports: No Symptoms reported Cardiac: reports: No Symptoms Reported GI: reports: Poor Appetite, Poor Fluid Intake, Abdominal cramping : reports: No Symptoms Reported Musculoskeletal: reports: Back Pain, Muscle Pain, Muscle Weakness Integumentary: reports: Flushing Neuro: reports: Headache, Tingling, Tremors Endocrine: reports: No Symptoms Reported Hematology: reports: No Symptoms Reported Psychiatric: reports: Orientated x3, Anxious Other Systems: Reviewed and Negative Patient History - Patient Medical History Hx Anemia: No Hx Asthma: No Hx Chronic Obstructive Pulmonary Disease (COPD): No Hx Cancer: No Hx Cardiac Disorders: No Hx Congestive Heart Failure: No Hx Hypertension: Yes (HCTZ, AMPLODIPINE, ATENOLOL) Hx Hypercholesterolemia: Yes (ATORVASTATIN) Hx Pacemaker: No HX Cerebrovascular Accident: No Hx Seizures: No Hx Dementia: No Hx Diabetes: No Hx Gastrointestinal Disorders: No Hx Liver Disease: No Hx Genitourinary Disorders: No Hx Sexually Transmitted Disorders: No Hx Renal Disease (ESRD): No Hx Thyroid Disease: No Hx Human Immunodeficiency Virus (HIV): No (NEGATIVE 2016) Hx Hepatitis C: No (NEGATIVE 2016) Hx Depression: Yes (Wellbutrin, Olazapine) Hx Suicide Attempt: Yes (Walked into traffic in November 2016. Denies suicidal ideation at this time) Hx Bipolar Disorder: No Hx Schizophrenia: No - Patient Surgical History Past Surgical History: Yes Hx Neurologic Surgery: No Hx Cataract Extraction: No Hx Cardiac Surgery: No Hx Lung Surgery: No Hx Abdominal Surgery: No Hx Appendectomy: No Hx Cholecystectomy: No Hx Genitourinary Surgery: No Hx Section: No Hx Orthopedic Surgery: Yes (right hip replacement in 04/2003 at [facility] for avascular necrosis) Other Surgical History: Surgery to repair Right Fibula fracture: 1996. Anesthesia Reaction: No - PPD History Previous Implant?: Yes (PPD POSITIVE 2004. INH FOR 9 MONTHS) Implanted On Prior [facility] Admission?: No PPD to be Administered?: No - Reproductive History Patient is a Female of Child Bearing Age (11 -55 yrs old): No (MALE) - Smoking Cessation Smoking history: Current every day smoker Have you smoked in the past 12 months: Yes Aproximately how many cigarettes per day: 10 Cigars Per Day: 0 Hx Chewing Tobacco Use: No Initiated information on smoking cessation: Yes 'Breaking Loose' booklet given: 04/15/17 - Substance & Tx. History Hx Alcohol Use: Yes Hx Substance Use: Yes Substance Use Type: Cocaine Hx Substance Use Treatment: Yes ([facility]) - Substances Abused Alcohol Route: Oral Frequency: Daily Amount used: COGNAC - 1 PINT, RUM - 1 PINT, VODKA - 1 PINT Age of first use: 15 Date of Last Use: 04/13/17 Cocaine Route: Inhalation Frequency: Daily Amount used: $100 Age of first use: 20 Date of Last Use: 04/14/17 Family Disease History - Family Disease History Family Disease History: Heart Disease: Father (), Respiratory: Mother ( ), Other: Father, Mother Admission Physical Exam [facility] - Vital Signs Vital Signs: Vital Signs - 24 hr 04/15/17 20:51 Temperature 96.3 F L Pulse Rate 66 Respiratory 19 Rate Blood Pressure 152/83 - Physical General Appearance: Yes: Moderate Distress, Tremorous, Irritable, Sweating, Anxious HEENTM: Yes: EOMI, Normal Voice, WILLY, Other (missing lower teeth) Respiratory: Yes: Lungs Clear, Normal Breath Sounds, No Respiratory Distress Neck: Yes: Supple Breast: Yes: Breast Exam Deferred Cardiology: Yes: Regular Rhythm, Regular Rate, S1, S2 Abdominal: Yes: Normal Bowel Sounds, Soft Genitourinary: Yes: Within Normal Limits Back: Yes: Normal Inspection Musculoskeletal: Yes: Within Normal Limits Extremities: Yes: Tremors Neurological: Yes: Alert, Normal Mood/Affect Integumentary: Yes: Warm Lymphatic: Yes: Within Normal Limits - Diagnostic (1) Alcohol dependence with uncomplicated withdrawal Current Visit: Yes Status: Chronic (2) Arthritis Current Visit: Yes Status: Chronic (3) Cocaine dependence, uncomplicated Current Visit: Yes Status: Chronic (4) History of depression Current Visit: Yes Status: Chronic (5) History of positive PPD Current Visit: Yes Status: Chronic (6) Hypercholesteremia Current Visit: Yes Status: Chronic (7) Hypertension Current Visit: Yes Status: Chronic Qualifiers: Hypertension type: essential hypertension Qualified Code(s): I10 - Essential (primary) hypertension (8) Nicotine dependence Current Visit: Yes Status: Chronic Qualifiers: Nicotine product type: cigarettes Substance use status: in withdrawal Qualified Code(s): F17.213 - Nicotine dependence, cigarettes, with withdrawal Cleared for Admission [facility] - Detox or Rehab [facility] Level of Care: Medically Managed Detox Regimen/Protocol: Librium [facility] Breath Alcohol Content Breath Alcohol Content: 0 Urine Drug Screen - Results Drug Screen Negative: No Urine Drug Screen Results: THC-Marijuana, JESUS ALBERTO-Cocaine, BAR-Barbiturates
[2017-04-15] MEDS ORDERED: IBUPROFEN 400 MG TABLET (FP) PO PRN (23:25)
[2017-04-15] MEDS ORDERED: guaiFENesin/D-METHORPHAN HB 10 ML UNIT-DOSE CUPS PO PRN (23:25)
[2017-04-15] MEDS ORDERED: P-EPHED 60MG/TRIPROLIDI 2.5MG TABLET PO PRN (23:25)
[2017-04-15] MEDS ORDERED: LOPERAMIDE HCL 2 MG CAPSULE PO PRN (23:25)
[2017-04-15] MEDS ORDERED: MAGNESIUM HYDROX 2400MG/30ML ORAL SUSPENSION 30 ML CUP PO PRN (23:25)
[2017-04-15] MEDS ORDERED: MAGNESIUM CITRATE 300 ML BOTTLE PO PRN (23:25)
[2017-04-15] MEDS ORDERED: MAG HYDROX/AL HYDROX/SIMETH 30 ML UNIT-DOSE CUP PO PRN (23:25)
[2017-04-15] MEDS ORDERED: chlordiazePOXIDE HCL 25 MG CAPSULE PO PRN (23:25)
[2017-04-15] MEDS ORDERED: MENTHOL/PHENOL 1 EACH UD MM PRN (23:25)
[2017-04-16] MEDS: ACETAMINOPHEN 325 MG TABLET (FP) PO PRN ×2 (00:41→05:32)
[2017-04-16] MEDS: chlordiazePOXIDE HCL 25 MG CAPSULE PO SCH ×5 (00:41→22:35)
[2017-04-16 01:11] LABS: URINE APPEARANCE TURBID; URINE BILIRUBIN NEGATIVE (NEGATIVE); URINE BLOOD NEGATIVE (NEGATIVE); URINE COLOR AMBER; URINE GLUCOSE (UA) NEGATIVE (NEGATIVE); URINE KETONE NEGATIVE (NEGATIVE); URINE LEUK ESTERASE NEGATIVE (NEGATIVE); URINE NITRITE NEGATIVE (NEGATIVE)
[2017-04-16 01:14] LABS: URINE PROTEIN 1+ (NEGATIVE)
[2017-04-16 01:16] LABS: CALCIUM OXALATE CRYSTALS FEW /hpf (NONE SEEN); EPI CELLS RARE /HPF (FEW); URINE BACTERIA FEW /hpf (NONE SEEN); URINE HYALINE CAST 4 /lpf; URINE MUCUS MANY
--- NOTE | 2017-04-16 09:18 | PN ---
S CIWA - CIWA Score Nausea/Vomitin-Mild Nausea/No Vomiting Muscle Tremors: 4-Moderate,w/Arms Extend Anxiety: 3 Agitation: 3 Paroxysmal Sweats: 1-Minimal Palms Moist Orientation: 0-Oriented Tacttile Disturbances: 1-Very Mild Itch/Numbness Auditory Disturbances: 0-None Visual Disturbances: 0-None Headache: 2-Mild CIWA-Ar Total Score: 15 BHS Progress Note (SOAP) Subjective: sweat tremor anxiety restlessness gi upset Objective: 04/16/17 09:17 Vital Signs Temperature 97.9 F 04/16/17 06:00 Pulse Rate 56 L 04/16/17 06:00 Respiratory Rate 18 04/16/17 06:00 Blood Pressure 140/92 04/16/17 06:00 O2 Sat by Pulse Oximetry (%) Laboratory Last Values Urine Color Adina 04/15/17 23:28 Urine Appearance Turbid 04/15/17 23:28 Urine pH 5.0 (5.0-8.0) 04/15/17 23:28 Ur Specific [place] 1.032 (1.001-1.035) 04/15/17 23:28 Urine Protein 1+ (NEGATIVE) H 04/15/17 23:28 Urine Glucose (UA) Negative (NEGATIVE) 04/15/17 23:28 Urine Ketones Negative (NEGATIVE) 04/15/17 23:28 Urine Blood Negative (NEGATIVE) 04/15/17 23:28 Urine Nitrite Negative (NEGATIVE) 04/15/17 23:28 Urine Bilirubin Negative (NEGATIVE) 04/15/17 23:28 Urine Urobilinogen 2.0 mg/dL (0.2-1.0) 04/15/17 23:28 Ur Leukocyte Esterase Negative (NEGATIVE) 04/15/17 23:28 Urine WBC (Auto) 17 /hpf (3-5) 04/15/17 23:28 Urine RBC (Auto) 1 /hpf (0-3) 04/15/17 23:28 Ur Epithelial Cells Rare /HPF (FEW) 04/15/17 23:28 Calcium Oxalate Crystal Few /hpf (NONE SEEN) 04/15/17 23:28 Urine Bacteria Few /hpf (NONE SEEN) 04/15/17 23:28 Hyaline Casts 4 /lpf 04/15/17 23:28 Urine Mucus Many 04/15/17 23:28 lab noted Assessment: 04/16/17 09:17 withdrawal sx muscle cramping Plan: continue detox robaxin 500 mg po
[2017-04-16] MEDS ORDERED: PATIENT'S OWN MEDICATION (NON-FORMULARY) (Meloxicam [Meloxicam] 15 MG) PO SCH (10:00)
[2017-04-16] MEDS: amLODIPine BESYLATE 10 MG TABLET (FP) PO SCH (10:41)
[2017-04-16] MEDS: METHOCARBAMOL 500 MG TABLET PO SCH ×4 (10:41→22:35)
[2017-04-16] MEDS: ASPIRIN COATED 81 MG TABLET.EC PO SCH (10:41)
[2017-04-16] MEDS: PRENATAL VITAMINS W/ FOLIC ACID TABLET (FP) PO SCH (10:41)
[2017-04-16] MEDS: ATENOLOL 25 MG TABLET (FP) PO SCH (10:42)
[2017-04-16] MEDS: NICOTINE POLACRILEX 2 MG GUM BC PRN ×2 (10:44→13:26)
[2017-04-16] MEDS: HYDROCHLOROTHIAZIDE 25 MG TABLET (FP) PO SCH (10:45)
[2017-04-16] MEDS: NICOTINE 14 MG/24 HOURS TOPICAL PATCH TD SCH (10:46)
--- NOTE | 2017-04-16 10:49 | EKG ---
Test Reason : Blood Pressure : / mmHG Vent. Rate : 058 BPM Atrial Rate : 058 BPM P-R Int : 140 ms QRS Dur : 082 ms QT Int : 434 ms P-R-T Axes : 040 -33 -16 degrees QTc Int : 426 ms SINUS BRADYCARDIA LEFT AXIS DEVIATION MINIMAL VOLTAGE CRITERIA FOR LVH, MAY BE NORMAL VARIANT ABNORMAL ECG WHEN COMPARED WITH ECG OF 26-JAN-2017 19:45, NO SIGNIFICANT CHANGE WAS FOUND Confirmed by ANKITA TORRES, TIKI ([id number]) on 04/16/2017 10:49:08 AM Referred By: Samir Boland Confirmed By:TIKI LUCIANO MD
[2017-04-16] MEDS: LIDOCAINE 5% TOPICAL PATCH TP SCH (12:14)
[2017-04-16 14:49] LABS: HEMATOCRIT 38.2 % (35.4-49); HEMOGLOBIN 13.3 GM/dL (11.7-16.9); MCH 33.5 pg (25.7-33.7); MCHC 34.7 g/dl (32.0-35.9); MEAN CELL VOLUME 96.5 fl (80-96); MEAN PLT VOLUME 8.5 fl (7.5-11.1); PLATELET COUNT 205 K/MM3 (134-434); RBC 3.96 M/mm3 (4.00-5.60); RDW 14.2 % (11.9-15.9); WHITE BLOOD COUNT 2.7 K/mm3 (4.0-10.0)
[2017-04-16 15:04] LABS: CHLORIDE 102 mmol/L (98-107); POTASSIUM 3.5 mmol/L (3.5-5.1); SODIUM 141 mmol/L (136-145)
[2017-04-16 15:11] LABS: ALBUMIN 3.3 g/dl (3.4-5.0); ALK PHOS 61 U/L (45-117); ANION GAP 12 (8-16); BILIRUBIN,TOTAL 0.6 mg/dL (0.2-1.0); BLOOD UREA NITROGEN 16 mg/dL (7-18); CALCIUM 9.1 mg/dL (8.5-10.1); CO2 27 mmol/L (21-32); CREATININE 1.3 mg/dL (0.7-1.3); GLUCOSE,RANDOM 174 mg/dL (74-106); SGOT/AST 14 U/L (15-37); SGPT/ALT 25 U/L (12-78); TOT PROT 7.1 g/dl (6.4-8.2)
--- NOTE | 2017-04-16 16:17 | CONSULT ---
[facility] Psychiatric Consult - Data Date of interview: 04/16/17 Admission source: [facility] Identifying data: Another admission to [facility] for this 61 y/o AA male seeking detox treatment on for alcohol,cannabis and cocaine dependence.Patient is single without children,domiciled,unemployed and supported on Public Assistance. Substance Abuse History: Confirmed by patient in this interview.Smoking history : Current every day smoker. Have you smoked in the past 12 months: Yes. Aproximately how many cigarettes per day: 10. Cigars Per Day: 0. Hx Chewing Tobacco Use: No. Initiated information on smoking cessation: Yes. 'Breaking Loose' booklet given: 04/15/17. - Substance & Tx. History. Hx Alcohol Use: Yes. Hx Substance Use: Yes. Substance Use Type: Cocaine. Hx Substance Use Treatment: Yes ([facility]). - Substances Abused. Alcohol. Route: Oral. Frequency: Daily. Amount used: COGNAC - 1 PINT, RUM - 1 PINT, VODKA - 1 PINT. Age of first use: 15. Date of Last Use: 04/13/17. Cocaine. Route: Inhalation. Frequency: Daily. Amount used: $100. Age of first use: 20. Date of Last Use: 04/14/17 Medical History: Orthosurgery for fracture of right fibula (2004),hypertension, spinal stenosis,lower back pain,History of (+) PPD and treatment with INH (2004) ,hypercholesterolemia and arthritis at L3-L4 level.Noted history of angina and right hip replacement for avascular necrosis (2004).Multiple allergies : haloperidol,enalapril and levofloxacin. Psychiatric History: History of multiple psychiatric hospitalizations.Onset of psychiatric disturbances (1985).Diagnosed with Schizoaffective Disorder.Past admissions to [facility] and [facility].Mr Noonan is still receiving outpatient psychiatric services at the [facility] OPD clinic (under the care of Dr Yao) in the [place].Prescribed wellbutrin 100 mg/ day + olanzapine 10 mg twice a day.Patient admits to sub-optimal adherence to his medications.Patient denies any history of suicide attempts.Questionable historian in view of existing report of suicide attempt,in January 2017,via deliberate self exposure to oncoming traffic. 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 Additional Comment: Urine Drug Screen Results: THC-Marijuana, JESUS ALBERTO-Cocaine, BAR- Barbiturates.Noted. Mental Status Exam - Mental Status Exam Alert and Oriented to: Time, Place, Person Cognitive Function: Good Patient Appearance: Well Groomed Mood: Hopeful, Euthymic Affect: Appropriate, Normal Range Patient Behavior: Fatigued, Appropriate, Cooperative Speech Pattern: Clear, Appropriate Voice Loudness: Normal Thought Process: Intact, Goal Oriented Thought Disorder: Not Present Hallucinations: Denies Suicidal Ideation: Denies Homicidal Ideation: Denies Insight/Judgement: Poor Sleep: Well Appetite: Good Muscle strength/Tone: Normal Gait/Station: Normal Psychiatric Findings - Problem List ([place] 1, 2,3) (1) Alcohol dependence with uncomplicated withdrawal Current Visit: Yes Status: Chronic (2) Cocaine dependence, uncomplicated Current Visit: Yes Status: Chronic (3) [place]huana abuse Current Visit: Yes Status: Acute (4) Nicotine dependence Current Visit: Yes Status: Chronic Qualifiers: Nicotine product type: cigarettes Substance use status: in withdrawal Qualified Code(s): F17.213 - Nicotine dependence, cigarettes, with withdrawal (5) Schizoaffective disorder Current Visit: Yes Status: Chronic Qualifiers: Schizoaffective disorder type: depressive Qualified Code(s): F25.1 - Schizoaffective disorder, depressive type - Initial Treatment Plan Initial Treatment Plan: Records revisited.Sleep hygiene.Detoxification in progress.Psychoeducation.Medications : wellbutrin 100 mg po daily + zyprexa 10 mg po hs.Side effects/benefits of both medications are discussed with the patient.Mr Noonan agrees with this plan of care.Observation.
[2017-04-16] MEDS: OLANZapine 10 MG TABLET PO SCH (22:35)
[2017-04-16] MEDS: ATORVASTATIN CA 10 MG TABLET (FP) PO SCH (22:35)
[2017-04-16] MEDS: THIAMINE HCL 100 MG TABLET (FP) PO SCH (22:35)
[2017-04-16] MEDS: LIDOCAINE PATCH REMOVAL MC SCH (22:37)
[2017-04-17] MEDS: chlordiazePOXIDE HCL 25 MG CAPSULE PO SCH ×3 (05:52→17:46)
[2017-04-17] MEDS: NICOTINE POLACRILEX 2 MG GUM BC PRN ×4 (06:15→22:18)
--- NOTE | 2017-04-17 10:42 | PN ---
[facility] CIWA - CIWA Score Nausea/Vomitin-No Nausea/No Vomiting Muscle Tremors: 3 Anxiety: 4-Mod. Anxious/Guarded Agitation: 4-Moderately Restless Paroxysmal Sweats: 1-Minimal Palms Moist Orientation: 0-Oriented Tacttile Disturbances: 0-None Auditory Disturbances: 0-None Visual Disturbances: 0-None Headache: 0-None Present CIWA-Ar Total Score: 12 BHS Progress Note (SOAP) Subjective: sweat tremor anxiety restlessness irritable Objective: 04/17/17 10:41 Vital Signs Temperature 97.5 F L 04/17/17 06:00 Pulse Rate 54 L 04/17/17 06:00 Respiratory Rate 18 04/17/17 06:00 Blood Pressure 130/75 04/17/17 06:00 O2 Sat by Pulse Oximetry (%) Laboratory Last Values WBC 2.7 K/mm3 (4.0-10.0) L 04/16/17 08:30 RBC 3.96 M/mm3 (4.00-5.60) L 04/16/17 08:30 Hgb 13.3 GM/dL (11.7-16.9) 04/16/17 08:30 Hct 38.2 % (35.4-49) 04/16/17 08:30 MCV 96.5 fl (80-96) H 04/16/17 08:30 MCH 33.5 pg (25.7-33.7) 04/16/17 08:30 MCHC 34.7 g/dl (32.0-35.9) 04/16/17 08:30 RDW 14.2 % (11.9-15.9) 04/16/17 08:30 Plt Count 205 K/MM3 (134-434) 04/16/17 08:30 MPV 8.5 fl (7.5-11.1) 04/16/17 08:30 Sodium 141 mmol/L (136-145) 04/16/17 08:30 Potassium 3.5 mmol/L (3.5-5.1) 04/16/17 08:30 Chloride 102 mmol/L (98-107) 04/16/17 08:30 Carbon Dioxide 27 mmol/L (21-32) 04/16/17 08:30 Anion Gap 12 (8-16) 04/16/17 08:30 BUN 16 mg/dL (7-18) D 04/16/17 08:30 Creatinine 1.3 mg/dL (0.7-1.3) 04/16/17 08:30 Creat Clearance w eGFR 56.50 (>60) 04/16/17 08:30 Random Glucose 174 mg/dL (74-106) H D 04/16/17 08:30 Calcium 9.1 mg/dL (8.5-10.1) 04/16/17 08:30 Total Bilirubin 0.6 mg/dL (0.2-1.0) 04/16/17 08:30 AST 14 U/L (15-37) L D 04/16/17 08:30 ALT 25 U/L (12-78) D 04/16/17 08:30 Alkaline Phosphatase 61 U/L (45-117) 04/16/17 08:30 Total Protein 7.1 g/dl (6.4-8.2) 04/16/17 08:30 Albumin 3.3 g/dl (3.4-5.0) L 04/16/17 08:30 Urine Color Adina 04/15/17 23:28 Urine Appearance Turbid 04/15/17 23:28 Urine pH 5.0 (5.0-8.0) 04/15/17 23:28 Ur Specific [place] 1.032 (1.001-1.035) 04/15/17 23:28 Urine Protein 1+ (NEGATIVE) H 04/15/17 23:28 Urine Glucose (UA) Negative (NEGATIVE) 04/15/17 23:28 Urine Ketones Negative (NEGATIVE) 04/15/17 23:28 Urine Blood Negative (NEGATIVE) 04/15/17 23:28 Urine Nitrite Negative (NEGATIVE) 04/15/17 23:28 Urine Bilirubin Negative (NEGATIVE) 04/15/17 23:28 Urine Urobilinogen 2.0 mg/dL (0.2-1.0) 04/15/17 23:28 Ur Leukocyte Esterase Negative (NEGATIVE) 04/15/17 23:28 Urine WBC (Auto) 17 /hpf (3-5) 04/15/17 23:28 Urine RBC (Auto) 1 /hpf (0-3) 04/15/17 23:28 Ur Epithelial Cells Rare /HPF (FEW) 04/15/17 23:28 Calcium Oxalate Crystal Few /hpf (NONE SEEN) 04/15/17 23:28 Urine Bacteria Few /hpf (NONE SEEN) 04/15/17 23:28 Hyaline Casts 4 /lpf 04/15/17 23:28 Urine Mucus Many 04/15/17 23:28 lab noted Assessment: 04/17/17 10:42 withdrawal sx Plan: continue detox
[2017-04-17] MEDS: HYDROCHLOROTHIAZIDE 25 MG TABLET (FP) PO SCH (11:01)
[2017-04-17] MEDS: METHOCARBAMOL 500 MG TABLET PO SCH ×4 (11:01→22:17)
[2017-04-17] MEDS: ASPIRIN COATED 81 MG TABLET.EC PO SCH (11:01)
[2017-04-17] MEDS: PRENATAL VITAMINS W/ FOLIC ACID TABLET (FP) PO SCH (11:01)
[2017-04-17] MEDS: ATENOLOL 25 MG TABLET (FP) PO SCH (11:01)
[2017-04-17] MEDS: NICOTINE 14 MG/24 HOURS TOPICAL PATCH TD SCH (11:02)
[2017-04-17] MEDS: amLODIPine BESYLATE 10 MG TABLET (FP) PO SCH (11:02)
[2017-04-17] MEDS: buPROPion HCL 100 MG TABLET PO SCH (11:04)
[2017-04-17] MEDS: LIDOCAINE 5% TOPICAL PATCH TP SCH (11:06)
[2017-04-17] MEDS: THIAMINE HCL 100 MG TABLET (FP) PO SCH (22:17)
[2017-04-17] MEDS: OLANZapine 10 MG TABLET PO SCH (22:17)
[2017-04-17] MEDS: LIDOCAINE PATCH REMOVAL MC SCH (22:17)
[2017-04-17] MEDS: ATORVASTATIN CA 10 MG TABLET (FP) PO SCH (22:17)
[2017-04-17] MEDS: chlordiazePOXIDE 5 MG CAPSULE PO SCH (23:13)
[2017-04-18] MEDS: chlordiazePOXIDE 5 MG CAPSULE PO SCH ×3 (05:23→17:31)
[2017-04-18] MEDS: NICOTINE POLACRILEX 2 MG GUM BC PRN ×4 (05:26→19:46)
--- NOTE | 2017-04-18 09:52 | PN ---
[facility] Progress Note (SOAP) Subjective: alert oriented x 3 reports less withdrawal from alcohol tolerate food and fluid well, no tremor less sweat Objective: 04/18/17 09:51 Vital Signs Temperature 97.5 F L 04/18/17 06:31 Pulse Rate 65 04/18/17 06:31 Respiratory Rate 18 04/18/17 06:31 Blood Pressure 138/73 04/18/17 06:31 O2 Sat by Pulse Oximetry (%) Laboratory Last Values WBC 2.7 K/mm3 (4.0-10.0) L 04/16/17 08:30 RBC 3.96 M/mm3 (4.00-5.60) L 04/16/17 08:30 Hgb 13.3 GM/dL (11.7-16.9) 04/16/17 08:30 Hct 38.2 % (35.4-49) 04/16/17 08:30 MCV 96.5 fl (80-96) H 04/16/17 08:30 MCH 33.5 pg (25.7-33.7) 04/16/17 08:30 MCHC 34.7 g/dl (32.0-35.9) 04/16/17 08:30 RDW 14.2 % (11.9-15.9) 04/16/17 08:30 Plt Count 205 K/MM3 (134-434) 04/16/17 08:30 MPV 8.5 fl (7.5-11.1) 04/16/17 08:30 Sodium 141 mmol/L (136-145) 04/16/17 08:30 Potassium 3.5 mmol/L (3.5-5.1) 04/16/17 08:30 Chloride 102 mmol/L (98-107) 04/16/17 08:30 Carbon Dioxide 27 mmol/L (21-32) 04/16/17 08:30 Anion Gap 12 (8-16) 04/16/17 08:30 BUN 16 mg/dL (7-18) D 04/16/17 08:30 Creatinine 1.3 mg/dL (0.7-1.3) 04/16/17 08:30 Creat Clearance w eGFR 56.50 (>60) 04/16/17 08:30 Random Glucose 174 mg/dL (74-106) H D 04/16/17 08:30 Calcium 9.1 mg/dL (8.5-10.1) 04/16/17 08:30 Total Bilirubin 0.6 mg/dL (0.2-1.0) 04/16/17 08:30 AST 14 U/L (15-37) L D 04/16/17 08:30 ALT 25 U/L (12-78) D 04/16/17 08:30 Alkaline Phosphatase 61 U/L (45-117) 04/16/17 08:30 Total Protein 7.1 g/dl (6.4-8.2) 04/16/17 08:30 Albumin 3.3 g/dl (3.4-5.0) L 04/16/17 08:30 Urine Color Adina 04/15/17 23:28 Urine Appearance Turbid 04/15/17 23:28 Urine pH 5.0 (5.0-8.0) 04/15/17 23:28 Ur Specific [place] 1.032 (1.001-1.035) 04/15/17 23:28 Urine Protein 1+ (NEGATIVE) H 04/15/17 23:28 Urine Glucose (UA) Negative (NEGATIVE) 04/15/17 23:28 Urine Ketones Negative (NEGATIVE) 04/15/17 23:28 Urine Blood Negative (NEGATIVE) 04/15/17 23:28 Urine Nitrite Negative (NEGATIVE) 04/15/17 23:28 Urine Bilirubin Negative (NEGATIVE) 04/15/17 23:28 Urine Urobilinogen 2.0 mg/dL (0.2-1.0) 04/15/17 23:28 Ur Leukocyte Esterase Negative (NEGATIVE) 04/15/17 23:28 Urine WBC (Auto) 17 /hpf (3-5) 04/15/17 23:28 Urine RBC (Auto) 1 /hpf (0-3) 04/15/17 23:28 Ur Epithelial Cells Rare /HPF (FEW) 04/15/17 23:28 Calcium Oxalate Crystal Few /hpf (NONE SEEN) 04/15/17 23:28 Urine Bacteria Few /hpf (NONE SEEN) 04/15/17 23:28 Hyaline Casts 4 /lpf 04/15/17 23:28 Urine Mucus Many 04/15/17 23:28 RPR Titer Nonreactive (NONREACTIVE) 04/16/17 08:30 lab noted Assessment: 04/18/17 09:52 mild withdrawal sx Plan: medically supervised detox
[2017-04-18] MEDS: ATENOLOL 25 MG TABLET (FP) PO SCH (10:17)
[2017-04-18] MEDS: METHOCARBAMOL 500 MG TABLET PO SCH ×4 (10:17→22:40)
[2017-04-18] MEDS: amLODIPine BESYLATE 10 MG TABLET (FP) PO SCH (10:17)
[2017-04-18] MEDS: buPROPion HCL 100 MG TABLET PO SCH (10:17)
[2017-04-18] MEDS: ASPIRIN COATED 81 MG TABLET.EC PO SCH (10:17)
[2017-04-18] MEDS: PRENATAL VITAMINS W/ FOLIC ACID TABLET (FP) PO SCH (10:17)
[2017-04-18] MEDS: HYDROCHLOROTHIAZIDE 25 MG TABLET (FP) PO SCH (10:17)
[2017-04-18] MEDS: NICOTINE 14 MG/24 HOURS TOPICAL PATCH TD SCH (10:18)
[2017-04-18] MEDS: LIDOCAINE 5% TOPICAL PATCH TP SCH (11:05)
[2017-04-18] MEDS: OLANZapine 10 MG TABLET PO SCH (22:40)
[2017-04-18] MEDS: chlordiazePOXIDE HCL 10 MG CAPSULE PO SCH (22:40)
[2017-04-18] MEDS: ATORVASTATIN CA 10 MG TABLET (FP) PO SCH (22:40)
[2017-04-18] MEDS: THIAMINE HCL 100 MG TABLET (FP) PO SCH (22:41)
[2017-04-19] MEDS: chlordiazePOXIDE HCL 10 MG CAPSULE PO SCH ×2 (05:40→11:00)
[2017-04-19] MEDS: NICOTINE POLACRILEX 2 MG GUM BC PRN ×2 (05:42→09:52)
--- NOTE | 2017-04-19 08:44 | DS ---
[facility] Detox Discharge Summary Admission Date: 04/15/17 Discharge Date: 04/19/17 - History Present History: Alcohol Dependence - Physical Exam Results Vital Signs: Vital Signs Temperature 97.7 F 04/19/17 06:27 Pulse Rate 69 04/19/17 07:02 Respiratory Rate 19 04/19/17 07:02 Blood Pressure 143/76 04/19/17 07:02 O2 Sat by Pulse Oximetry (%) Pertinent Admission Physical Exam Findings: withdrawal sx Vital Signs Temperature 97.7 F 04/19/17 06:27 Pulse Rate 69 04/19/17 07:02 Respiratory Rate 19 04/19/17 07:02 Blood Pressure 143/76 04/19/17 07:02 O2 Sat by Pulse Oximetry (%) Laboratory Last Values WBC 2.7 K/mm3 (4.0-10.0) L 04/16/17 08:30 RBC 3.96 M/mm3 (4.00-5.60) L 04/16/17 08:30 Hgb 13.3 GM/dL (11.7-16.9) 04/16/17 08:30 Hct 38.2 % (35.4-49) 04/16/17 08:30 MCV 96.5 fl (80-96) H 04/16/17 08:30 MCH 33.5 pg (25.7-33.7) 04/16/17 08:30 MCHC 34.7 g/dl (32.0-35.9) 04/16/17 08:30 RDW 14.2 % (11.9-15.9) 04/16/17 08:30 Plt Count 205 K/MM3 (134-434) 04/16/17 08:30 MPV 8.5 fl (7.5-11.1) 04/16/17 08:30 Sodium 141 mmol/L (136-145) 04/16/17 08:30 Potassium 3.5 mmol/L (3.5-5.1) 04/16/17 08:30 Chloride 102 mmol/L (98-107) 04/16/17 08:30 Carbon Dioxide 27 mmol/L (21-32) 04/16/17 08:30 Anion Gap 12 (8-16) 04/16/17 08:30 BUN 16 mg/dL (7-18) D 04/16/17 08:30 Creatinine 1.3 mg/dL (0.7-1.3) 04/16/17 08:30 Creat Clearance w eGFR 56.50 (>60) 04/16/17 08:30 Random Glucose 174 mg/dL (74-106) H D 04/16/17 08:30 Calcium 9.1 mg/dL (8.5-10.1) 04/16/17 08:30 Total Bilirubin 0.6 mg/dL (0.2-1.0) 04/16/17 08:30 AST 14 U/L (15-37) L D 04/16/17 08:30 ALT 25 U/L (12-78) D 04/16/17 08:30 Alkaline Phosphatase 61 U/L (45-117) 04/16/17 08:30 Total Protein 7.1 g/dl (6.4-8.2) 04/16/17 08:30 Albumin 3.3 g/dl (3.4-5.0) L 04/16/17 08:30 Urine Color Adina 04/15/17 23:28 Urine Appearance Turbid 04/15/17 23:28 Urine pH 5.0 (5.0-8.0) 04/15/17 23:28 Ur Specific [place] 1.032 (1.001-1.035) 04/15/17 23:28 Urine Protein 1+ (NEGATIVE) H 04/15/17 23:28 Urine Glucose (UA) Negative (NEGATIVE) 04/15/17 23:28 Urine Ketones Negative (NEGATIVE) 04/15/17 23:28 Urine Blood Negative (NEGATIVE) 04/15/17 23:28 Urine Nitrite Negative (NEGATIVE) 04/15/17 23:28 Urine Bilirubin Negative (NEGATIVE) 04/15/17 23:28 Urine Urobilinogen 2.0 mg/dL (0.2-1.0) 04/15/17 23:28 Ur Leukocyte Esterase Negative (NEGATIVE) 04/15/17 23:28 Urine WBC (Auto) 17 /hpf (3-5) 04/15/17 23:28 Urine RBC (Auto) 1 /hpf (0-3) 04/15/17 23:28 Ur Epithelial Cells Rare /HPF (FEW) 04/15/17 23:28 Calcium Oxalate Crystal Few /hpf (NONE SEEN) 04/15/17 23:28 Urine Bacteria Few /hpf (NONE SEEN) 04/15/17 23:28 Hyaline Casts 4 /lpf 04/15/17 23:28 Urine Mucus Many 04/15/17 23:28 RPR Titer Nonreactive (NONREACTIVE) 04/16/17 08:30 lab noted - Treatment Hospital Course: Detox Protocol Followed, Detoxed Safely, Responded well, Discharged Condition Good, Rehab Referral Accepted Patient has Accepted a Rehab Referral to: [facility] - Medication Discharge Medications: Ambulatory Orders traZODone HCL [Desyrel -] 50 mg PO HS #30 tablet 12/03/16 Meloxicam 15 mg PO DAILY 02/06/17 Aspirin Coated [Ecotrin -] 81 mg PO DAILY #30 tab 02/13/17 Bupropion HCl [Wellbutrin -] 100 mg PO DAILY #30 tablet 02/13/17 Olanzapine [ZyPREXA -] 10 mg PO BID #60 tablet 02/13/17 Amlodipine Besylate [Norvasc -] 10 mg PO DAILY #30 tab 04/18/17 Atenolol [Tenormin -] 25 mg PO DAILY #30 tab 04/18/17 Atorvastatin Ca [Lipitor] 20 mg PO HS #14 tablet 04/18/17 Hydrochlorothiazide 25 mg PO DAILY 30 Days tablet 04/18/17 - Diagnosis (1) Alcohol dependence with uncomplicated withdrawal Current Visit: Yes Status: Acute (2) Hypercholesteremia Current Visit: Yes Status: Chronic (3) Hypertension Current Visit: Yes Status: Chronic Qualifiers: Hypertension type: essential hypertension Qualified Code(s): I10 - Essential (primary) hypertension (4) Schizoaffective disorder Current Visit: Yes Status: Suspected Qualifiers: Schizoaffective disorder type: depressive Qualified Code(s): F25.1 - Schizoaffective disorder, depressive type - AMA Did Patient Leave Against Medical Advice: No
[2017-04-19] MEDS: amLODIPine BESYLATE 10 MG TABLET (FP) PO SCH (09:48)
[2017-04-19] MEDS: ASPIRIN COATED 81 MG TABLET.EC PO SCH (09:48)
[2017-04-19] MEDS: PRENATAL VITAMINS W/ FOLIC ACID TABLET (FP) PO SCH (09:48)
[2017-04-19] MEDS: buPROPion HCL 100 MG TABLET PO SCH (09:48)
[2017-04-19] MEDS: HYDROCHLOROTHIAZIDE 25 MG TABLET (FP) PO SCH (09:48)
[2017-04-19] MEDS: METHOCARBAMOL 500 MG TABLET PO SCH (09:48)
[2017-04-19] MEDS: ATENOLOL 25 MG TABLET (FP) PO SCH (09:49)
[2017-04-19] MEDS: LIDOCAINE 5% TOPICAL PATCH TP SCH (11:08)
[2017-04-19] MEDS: NICOTINE 14 MG/24 HOURS TOPICAL PATCH TD SCH (11:16)
[2017-04-19 12:55] VITALS: BP 149/83; PULSE 69; TEMP 96.6
== END 2017-04-19 12:58 | disposition home or self-care (01) | DRG 774 ==
LOC: YASAS 18:28 → Y3N 21:18 → Y6N 21:38
PROVIDERS: ADMIT Internal Medicine; ATTEND Internal Medicine
PROC: HZ2ZZZZ Detoxification Services for Substance Abuse Treatment (ICD-10-PCS; principal; 2017-04-15)
DX: F10.230 Alcohol dependence with withdrawal, uncomplicated (principal); F14.20 Cocaine dependence, uncomplicated; F12.10 Cannabis abuse, uncomplicated; F17.213 Nicotine dependence, cigarettes, with withdrawal; F25.1 Schizoaffective disorder, depressive type; I10 Essential (primary) hypertension; E78.00 Pure hypercholesterolemia, unspecified; R25.2 Cramp and spasm; M19.90 Unspecified osteoarthritis, unspecified site; R76.11 Nonspecific reaction to tuberculin skin test without active tuberculosis; Z88.8 Allergy status to other drugs, medicaments and biological substances; Z91.5 Personal history of self-harm
CPT/HCPCS: 36415; 71046-TC-FY; 80053; 81003; 81015; 85027; 86593; 93005; 93010

== ENCOUNTER 2017-06-18 18:20 | Inpatient (IN) | payer OTHER ==
[2017-06-18 19:49] VITALS: BMI 30.5
[2017-06-18] MEDS ORDERED: MELATONIN 5 MG TABLETS PO PRN (22:00)
--- NOTE | 2017-06-18 23:36 | HP ---
CIWA Score - CIWA Score Nausea/Vomitin-No Nausea/No Vomiting Muscle Tremors: 4-Moderate,w/Arms Extend Anxiety: 4-Mod. Anxious/Guarded Agitation: 4-Moderately Restless Paroxysmal Sweats: No Perspiration Orientation: 0-Oriented Tacttile Disturbances: 0-None Auditory Disturbances: 0-None Visual Disturbances: 0-None Headache: 1-Very Mild CIWA-Ar Total Score: 13 Admission ROS S - HPI Chief Complaint: Alcohol withdrawal symptoms Allergies/Adverse Reactions: Allergies Allergy/AdvReac Type Severity Reaction Status Date / Time enalapril [Enalapril] Allergy Swelling Verified 06/18/17 21:48 haloperidol [From Haldol] Allergy Verified 06/18/17 21:48 haloperidol lactate Allergy Verified 06/18/17 21:48 [From Haldol] levofloxacin [From Levaquin] Allergy Hives Verified 06/18/17 21:48 ,Enalapril, Haldol, Levaquin Allergy Severe Hives Uncoded 06/18/17 21:48 History of Present Illness: 62 years old male with a long history of alcohol dependence is seeking admission to detox. Patient has been in previous detox multiple times at [facility] and reports 30 months of sobriety. He has medical history of HTN, DM type 2, hypercholesterolemia, spinal stenosis, arthritis and depression. He reports suicide attempt in November 2016 and denies suicidal ideation at this time. Exam Limitations: No Limitations - Ebola screening Have you traveled outside of the country in the last 21 days: No Have you had contact with anyone from an Ebola affected area: No Have you been sick,other than usual withdrawal symptoms: No Do you have a fever: No - Review of Systems Constitutional: Chills, Loss of Appetite, Malaise, Night Sweats, Changes in sleep EENT: reports: No Symptoms Reported Respiratory: reports: No Symptoms reported Cardiac: reports: No Symptoms Reported GI: reports: Poor Appetite, Poor Fluid Intake, Abdominal cramping : reports: No Symptoms Reported Musculoskeletal: reports: Back Pain, Joint Pain, Muscle Pain, Neck Pain Integumentary: reports: Flushing Neuro: reports: Tingling, Tremors Endocrine: reports: No Symptoms Reported Hematology: reports: No Symptoms Reported Psychiatric: reports: Orientated x3, Anxious, Depressed Other Systems: Reviewed and Negative Patient History - Patient Medical History Hx Anemia: No Hx Asthma: No Hx Chronic Obstructive Pulmonary Disease (COPD): No Hx Cancer: No Hx Cardiac Disorders: No Hx Congestive Heart Failure: No Hx Hypertension: Yes (HCTZ, AMPLODIPINE, ATENOLOL) Hx Hypercholesterolemia: Yes (ATORVASTATIN) Hx Pacemaker: No HX Cerebrovascular Accident: No Hx Seizures: No Hx Dementia: No Hx Diabetes: Yes (Metformin) Hx Gastrointestinal Disorders: No Hx Liver Disease: No Hx Genitourinary Disorders: No Hx Sexually Transmitted Disorders: No Hx Renal Disease (ESRD): No Hx Thyroid Disease: No Hx Human Immunodeficiency Virus (HIV): No (NEGATIVE 2016) Hx Hepatitis C: No (NEGATIVE 2016) Hx Depression: Yes (Wellbutrin, Olazapine) Hx Suicide Attempt: Yes (Walked into traffic in November 2016. Denies suicidal ideation at this time) Hx Bipolar Disorder: No Hx Schizophrenia: Yes (SCHIZOAFFECTIVE) Other Medical History: Arthritis - Not on medication - Patient Surgical History Past Surgical History: Yes Hx Neurologic Surgery: No Hx Cataract Extraction: No Hx Cardiac Surgery: No Hx Lung Surgery: No Hx Breast Surgery: No Hx Breast Biopsy: No Hx Abdominal Surgery: No Hx Appendectomy: No Hx Cholecystectomy: No Hx Genitourinary Surgery: No Hx Section: No Hx Orthopedic Surgery: Yes (right hip replacement in 04/[facility] for avascular necrosis) Other Surgical History: Surgery to repair Right Fibula fracture: 1996. Anesthesia Reaction: No - PPD History Previous Implant?: Yes (POSITIVE PPD) Documented Results: Positive w/o proof PPD to be Administered?: No - Reproductive History Patient is a Female of Child Bearing Age (11 -55 yrs old): No (MALE) - Smoking Cessation Smoking history: Current every day smoker Have you smoked in the past 12 months: Yes Aproximately how many cigarettes per day: 10 Cigars Per Day: 0 Hx Chewing Tobacco Use: No Initiated information on smoking cessation: Yes 'Breaking Loose' booklet given: 06/18/17 - Substances Abused Alcohol Route: Oral Frequency: Daily Amount used: 1 PINT Age of first use: 15 Date of Last Use: 06/17/17 Cocaine Route: Smoking Frequency: 1-3 times last 30 days Amount used: $150 Age of first use: 20 Date of Last Use: 06/18/17 Family Disease History - Family Disease History Family Disease History: Heart Disease: Father (), Respiratory: Mother ( ), Other: Father, Mother Admission Physical Exam [facility] - Vital Signs Vital Signs: Vital Signs - 24 hr 06/18/17 19:47 Temperature 98.8 F Pulse Rate 67 Respiratory 18 Rate Blood Pressure 140/100 - Physical General Appearance: Yes: Moderate Distress, Tremorous, Irritable, Sweating, Anxious HEENTM: Yes: EOMI, Normal ENT Inspection, Normal Voice, WILLY Respiratory: Yes: Lungs Clear, Normal Breath Sounds, No Respiratory Distress Neck: Yes: Supple Breast: Yes: Breast Exam Deferred Cardiology: Yes: Regular Rhythm, Regular Rate Abdominal: Yes: Normal Bowel Sounds, Soft Genitourinary: Yes: Within Normal Limits Back: Yes: Normal Inspection Musculoskeletal: Yes: Within Normal Limits Extremities: Yes: Tremors Neurological: Yes: Alert, Normal Mood/Affect Integumentary: Yes: Dry Lymphatic: Yes: Within Normal Limits - Diagnostic (1) Alcohol dependence with uncomplicated withdrawal Current Visit: Yes Status: Chronic (2) Cannabis abuse Current Visit: Yes Status: Chronic (3) Arthritis Current Visit: Yes Status: Chronic (4) History of depression Current Visit: No Status: Chronic (5) History of positive PPD Current Visit: Yes Status: Chronic (6) Hypercholesteremia Current Visit: Yes Status: Chronic (7) Hypertension Current Visit: Yes Status: Chronic Qualifiers: Hypertension type: essential hypertension Qualified Code(s): I10 - Essential (primary) hypertension (8) Nicotine dependence Current Visit: Yes Status: Chronic Qualifiers: Nicotine product type: cigarettes Substance use status: in withdrawal Qualified Code(s): F17.213 - Nicotine dependence, cigarettes, with withdrawal (9) Spinal stenosis, lumbosacral region Current Visit: Yes Status: Chronic (10) Walker as ambulation aid Current Visit: Yes Status: Chronic Cleared for Admission [facility] - Detox or Rehab [facility] Level of Care: Medically Managed Detox Regimen/Protocol: Librium [facility] Breath Alcohol Content Breath Alcohol Content: 0 Urine Drug Screen - Results Drug Screen Negative: No Urine Drug Screen Results: JESUS ALBERTO-Cocaine
[2017-06-18] MEDS ORDERED: MAGNESIUM CITRATE 300 ML BOTTLE PO PRN (23:50)
[2017-06-18] MEDS ORDERED: P-EPHED 60MG/TRIPROLIDI 2.5MG TABLET PO PRN (23:50)
[2017-06-18] MEDS ORDERED: chlordiazePOXIDE HCL 25 MG CAPSULE PO PRN (23:50)
[2017-06-18] MEDS ORDERED: MAG HYDROX/AL HYDROX/SIMETH 30 ML UNIT-DOSE CUP PO PRN (23:50)
[2017-06-18] MEDS ORDERED: IBUPROFEN 400 MG TABLET (FP) PO PRN (23:50)
[2017-06-18] MEDS ORDERED: ACETAMINOPHEN 325 MG TABLET (FP) PO PRN (23:50)
[2017-06-18] MEDS ORDERED: LOPERAMIDE HCL 2 MG CAPSULE PO PRN (23:50)
[2017-06-18] MEDS ORDERED: guaiFENesin/D-METHORPHAN HB 10 ML UNIT-DOSE CUPS PO PRN (23:50)
[2017-06-18] MEDS ORDERED: MENTHOL/PHENOL 1 EACH UD MM PRN (23:50)
[2017-06-18] MEDS ORDERED: MAGNESIUM HYDROX 2400MG/30ML ORAL SUSPENSION 30 ML CUP PO PRN (23:50)
[2017-06-19] MEDS: chlordiazePOXIDE HCL 25 MG CAPSULE PO SCH ×6 (05:14→22:22)
[2017-06-19] MEDS: NICOTINE POLACRILEX 2 MG GUM BC PRN ×4 (05:42→22:25)
[2017-06-19] MEDS: metFORMIN HCL 500 MG TABLET (FP) PO SCH ×2 (07:05→17:30)
[2017-06-19 09:46] LABS: URINE APPEARANCE CLEAR; URINE BILIRUBIN NEGATIVE (<2.0 mg/dL); URINE COLOR YELLOW; URINE GLUCOSE (UA) NEGATIVE (NEGATIVE); URINE KETONE NEGATIVE (NEGATIVE); URINE LEUK ESTERASE NEGATIVE (NEGATIVE); URINE NITRITE NEGATIVE (NEGATIVE); URINE PROTEIN NEGATIVE (NEGATIVE); URINE UROBILINOGEN 4.0 E.U/dl mg/dL (0.2-1.0)
--- NOTE | 2017-06-19 09:50 | EKG ---
Test Reason : Blood Pressure : / mmHG Vent. Rate : 052 BPM Atrial Rate : 052 BPM P-R Int : 188 ms QRS Dur : 086 ms QT Int : 448 ms P-R-T Axes : 068 -28 -02 degrees QTc Int : 416 ms SINUS BRADYCARDIA OTHERWISE NORMAL ECG WHEN COMPARED WITH ECG OF 16-APR-2017 00:15, NO SIGNIFICANT CHANGE WAS FOUND Confirmed by MD Catie, Romel ([id number]) on 06/19/2017 9:49:50 AM Referred By: Samir Boland Confirmed By:Romel Haddad MD
[2017-06-19 09:59] LABS: HEMATOCRIT 38.7 % (35.4-49); HEMOGLOBIN 13.6 GM/dL (11.7-16.9); MCH 33.6 pg (25.7-33.7); MCHC 35.2 g/dl (32.0-35.9); MEAN CELL VOLUME 95.5 fl (80-96); MEAN PLT VOLUME 8.7 fl (7.5-11.1); PLATELET COUNT 172 K/MM3 (134-434); RBC 4.06 M/mm3 (4.00-5.60); RDW 13.9 % (11.9-15.9); WHITE BLOOD COUNT 3.4 K/mm3 (4.0-10.0)
[2017-06-19 10:03] LABS: CHLORIDE 103 mmol/L (98-107); POTASSIUM 3.8 mmol/L (3.5-5.1); SODIUM 140 mmol/L (136-145)
[2017-06-19] MEDS: amLODIPine BESYLATE 10 MG TABLET (FP) PO SCH (10:41)
[2017-06-19] MEDS: HYDROCHLOROTHIAZIDE 25 MG TABLET (FP) PO SCH (10:41)
[2017-06-19] MEDS: ASPIRIN COATED 81 MG TABLET.EC PO SCH (10:41)
[2017-06-19] MEDS: PRENATAL VITAMINS W/ FOLIC ACID TABLET (FP) PO SCH (10:41)
[2017-06-19] MEDS: NICOTINE 14 MG/24 HOURS TOPICAL PATCH TD SCH (10:42)
[2017-06-19] MEDS: ATENOLOL 25 MG TABLET (FP) PO SCH (10:50)
[2017-06-19 10:52] LABS: ALBUMIN 3.7 g/dl (3.4-5.0); ALK PHOS 75 U/L (45-117); ANION GAP 9 (8-16); BILIRUBIN,TOTAL 0.9 mg/dL (0.2-1.0); BLOOD UREA NITROGEN 19 mg/dL (7-18); CALCIUM 9.2 mg/dL (8.5-10.1); CO2 28 mmol/L (21-32); CREATININE 1.3 mg/dL (0.7-1.3); GLUCOSE,RANDOM 129 mg/dL (74-106); SGOT/AST 12 U/L (15-37); SGPT/ALT 23 U/L (12-78); TOT PROT 7.6 g/dl (6.4-8.2)
[2017-06-19] MEDS: LIDOCAINE 5% TOPICAL PATCH TP SCH (11:50)
[2017-06-19] MEDS: OMEGA-3 ACID ETHYL ESTERS (FATTY-ACIDS) 1 GM CAPSULE (FP) PO SCH (11:50)
--- NOTE | 2017-06-19 12:11 | PN ---
S CIWA - CIWA Score Nausea/Vomitin Muscle Tremors: 3 Anxiety: 3 Agitation: 3 Paroxysmal Sweats: 1-Minimal Palms Moist Orientation: 0-Oriented Tacttile Disturbances: 1-Very Mild Itch/Numbness Auditory Disturbances: 1-Very Mild Visual Disturbances: 0-None Headache: 2-Mild CIWA-Ar Total Score: 16 BHS Progress Note (SOAP) Subjective: ALERT,IRRITABLE,ANXIOUS,INTERRUPTED SLEEP,TREMOR,PAIN IN THE BACK Objective: 06/19/17 12:08 Vital Signs Temperature 97.3 F L 06/19/17 08:55 Pulse Rate 68 06/19/17 08:55 Respiratory Rate 20 06/19/17 08:55 Blood Pressure 145/80 06/19/17 08:55 O2 Sat by Pulse Oximetry (%) EKG SINUS BRADYCARDIA 52/MIN PROLONG QT 449/416 NO CHEST PAIN,NO SOB,NO DIZZINESS 06/19/17 12:09 Laboratory Last Values WBC 3.4 K/mm3 (4.0-10.0) L 06/19/17 07:30 RBC 4.06 M/mm3 (4.00-5.60) 06/19/17 07:30 Hgb 13.6 GM/dL (11.7-16.9) 06/19/17 07:30 Hct 38.7 % (35.4-49) 06/19/17 07:30 MCV 95.5 fl (80-96) 06/19/17 07:30 MCH 33.6 pg (25.7-33.7) 06/19/17 07:30 MCHC 35.2 g/dl (32.0-35.9) 06/19/17 07:30 RDW 13.9 % (11.9-15.9) 06/19/17 07:30 Plt Count 172 K/MM3 (134-434) 06/19/17 07:30 MPV 8.7 fl (7.5-11.1) 06/19/17 07:30 Sodium 140 mmol/L (136-145) 06/19/17 07:30 Potassium 3.8 mmol/L (3.5-5.1) 06/19/17 07:30 Chloride 103 mmol/L (98-107) 06/19/17 07:30 Carbon Dioxide 28 mmol/L (21-32) 06/19/17 07:30 Anion Gap 9 (8-16) 06/19/17 07:30 BUN 19 mg/dL (7-18) H 06/19/17 07:30 Creatinine 1.3 mg/dL (0.7-1.3) 06/19/17 07:30 Creat Clearance w eGFR 56.31 (>60) 06/19/17 07:30 POC Glucometer 148 UNITS (80-120) 06/19/17 05:39 Random Glucose 129 mg/dL (74-106) H D 06/19/17 07:30 Calcium 9.2 mg/dL (8.5-10.1) 06/19/17 07:30 Total Bilirubin 0.9 mg/dL (0.2-1.0) D 06/19/17 07:30 AST 12 U/L (15-37) L 06/19/17 07:30 ALT 23 U/L (12-78) 06/19/17 07:30 Alkaline Phosphatase 75 U/L (45-117) D 06/19/17 07:30 Total Protein 7.6 g/dl (6.4-8.2) 06/19/17 07:30 Albumin 3.7 g/dl (3.4-5.0) 06/19/17 07:30 Urine Color Yellow 06/19/17 07:30 Urine Appearance Clear 06/19/17 07:30 Urine pH 6.0 (5.0-8.0) 06/19/17 07:30 Ur Specific [place] 1.023 (1.001-1.035) 06/19/17 07:30 Urine Protein Negative (NEGATIVE) 06/19/17 07:30 Urine Glucose (UA) Negative (NEGATIVE) 06/19/17 07:30 Urine Ketones Negative (NEGATIVE) 06/19/17 07:30 Urine Blood Negative (NEGATIVE) 06/19/17 07:30 Urine Nitrite Negative (NEGATIVE) 06/19/17 07:30 Urine Bilirubin Negative (<2.0 mg/dL) 06/19/17 07:30 Urine Urobilinogen 4.0 e.u/dl mg/dL (0.2-1.0) 06/19/17 07:30 Ur Leukocyte Esterase Negative (NEGATIVE) 06/19/17 07:30 Assessment: 06/19/17 12:10 WITHDRAWAL SYMPTOM Plan: CONTINUE DETOX,BGM DAILY,ENCOURAGE ORAL FLUID
--- NOTE | 2017-06-19 14:52 | CONSULT ---
[facility] Psychiatric Consult - Data Date of interview: 06/19/17 Admission source: [facility] Identifying data: Patient is a 62 year old single domiciled male, without kids, and receiving disability. This is one of multiple admissions for patient. Pt. admitted to for alcohol and cocaine dependence. Substance Abuse History: Following information confirmed with Mr. Noonan: Smoking Cessation. Smoking history: Current every day smoker. Have you smoked in the past 12 months: Yes. Aproximately how many cigarettes per day: 10. Cigars Per Day: 0. Hx Chewing Tobacco Use: No. Initiated information on smoking cessation: Yes. 'Breaking Loose' booklet given: 06/18/17. - Substances Abused. Alcohol. Route: Oral. Frequency: Daily. Amount used: 1 PINT. Age of first use: 15. Date of Last Use: 06/17/17. Cocaine. Route : Smoking. Frequency: 1-3 times last 30 days. Amount used: $150. Age of first use: 20. Date of Last Use: 06/18/17 Medical History: hypertension, hypercholesterolemia, diabetes, arthritis, right hip replacement in 04/2003 at [facility] for avascular necrosis, Surgery to repair Right Fibula fracture in 1996. Psychiatric History: Patient reports multiple psychiatric hospitalizations, most recently at the [facility] last week for depression. Pt. is also known to [facility] and [facility]. Diagnosis of schizoaffective disorder. Pt. is currently prescribed wellbutrin 300mgXL + Risperdal 2mg BID. Pt. was recently discontinued from zyprexa after a medical diagnosis of diabetes. Pt. reports taking his medications as scheduled. OPD is provided by the [facility] but reports suboptimal adherence to outpatient care. Pt. denies h/o suicide attempt. Physical/Sexual Abuse/Trauma History: Denies. Mental Status Exam - Mental Status Exam Alert and Oriented to: Time, Place, Person Cognitive Function: Good Patient Appearance: Well Groomed Mood: Hopeful Affect: Mood Congruent Patient Behavior: Appropriate, Cooperative Speech Pattern: Appropriate Voice Loudness: Normal Thought Process: Intact, Goal Oriented Thought Disorder: Not Present Hallucinations: Denies Suicidal Ideation: Denies Homicidal Ideation: Denies Insight/Judgement: Poor Sleep: Fair Appetite: Fair Muscle strength/Tone: Normal Gait/Station: Other (Patient ambulates with a rolling walker.) Psychiatric Findings - Problem List ([place] 1, 2,3) (1) Alcohol dependence with uncomplicated withdrawal Current Visit: Yes Status: Acute (2) Nicotine dependence Current Visit: Yes Status: Chronic Qualifiers: Nicotine product type: cigarettes Substance use status: in withdrawal Qualified Code(s): F17.213 - Nicotine dependence, cigarettes, with withdrawal (3) Cocaine dependence Current Visit: Yes Status: Chronic (4) Schizoaffective disorder Current Visit: Yes Status: Chronic Qualifiers: Schizoaffective disorder type: depressive Qualified Code(s): F25.1 - Schizoaffective disorder, depressive type Comment: History. Compliant with medication. - Initial Treatment Plan Initial Treatment Plan: Psychoeducation provided. Detoxification in progress. Patient's pharmacy contacted at [facility] pharmacy # [phone] and able to verifiy patients wellbutrin dose of 300mg XL (picked up on 05/22/17). Wellbutrin 300mg XL PO daily + Risperdal 1BID mg ordered. Benefits and side effects discussed. Verbal consent given. Will continue to monitor.
[2017-06-19] MEDS ORDERED: risperiDONE 2 MG TABLET PO SCH ×2 (22:00)
[2017-06-19] MEDS: THIAMINE HCL 100 MG TABLET (FP) PO SCH (22:22)
[2017-06-19] MEDS: LIDOCAINE PATCH REMOVAL MC SCH (22:22)
[2017-06-19] MEDS: risperiDONE 1 MG TABLET (FP) PO SCH (22:22)
[2017-06-19] MEDS: ATORVASTATIN CA 20 MG TABLET (FP) PO SCH (22:22)
[2017-06-20] MEDS: NICOTINE POLACRILEX 2 MG GUM BC PRN ×6 (05:26→22:34)
[2017-06-20] MEDS: chlordiazePOXIDE HCL 25 MG CAPSULE PO SCH ×4 (05:26→22:32)
--- NOTE | 2017-06-20 09:46 | PN ---
S CIWA - CIWA Score Nausea/Vomitin Muscle Tremors: 3 Anxiety: 3 Agitation: 2 Paroxysmal Sweats: 1-Minimal Palms Moist Orientation: 0-Oriented Tacttile Disturbances: 1-Very Mild Itch/Numbness Auditory Disturbances: 1-Very Mild Visual Disturbances: 0-None Headache: 2-Mild CIWA-Ar Total Score: 16 S Progress Note (SOAP) Subjective: ALERT,IRRITABLE,ANXIOUS,INTERRUPTED SLEEP,AMBULATION WITH WALKER Objective: 06/20/17 09:44 Vital Signs Temperature 97.7 F 06/20/17 09:23 Pulse Rate 79 06/20/17 09:23 Respiratory Rate 16 06/20/17 09:23 Blood Pressure 147/93 06/20/17 09:23 O2 Sat by Pulse Oximetry (%) Laboratory Last Values WBC 3.4 K/mm3 (4.0-10.0) L 06/19/17 07:30 RBC 4.06 M/mm3 (4.00-5.60) 06/19/17 07:30 Hgb 13.6 GM/dL (11.7-16.9) 06/19/17 07:30 Hct 38.7 % (35.4-49) 06/19/17 07:30 MCV 95.5 fl (80-96) 06/19/17 07:30 MCH 33.6 pg (25.7-33.7) 06/19/17 07:30 MCHC 35.2 g/dl (32.0-35.9) 06/19/17 07:30 RDW 13.9 % (11.9-15.9) 06/19/17 07:30 Plt Count 172 K/MM3 (134-434) 06/19/17 07:30 MPV 8.7 fl (7.5-11.1) 06/19/17 07:30 Sodium 140 mmol/L (136-145) 06/19/17 07:30 Potassium 3.8 mmol/L (3.5-5.1) 06/19/17 07:30 Chloride 103 mmol/L (98-107) 06/19/17 07:30 Carbon Dioxide 28 mmol/L (21-32) 06/19/17 07:30 Anion Gap 9 (8-16) 06/19/17 07:30 BUN 19 mg/dL (7-18) H 06/19/17 07:30 Creatinine 1.3 mg/dL (0.7-1.3) 06/19/17 07:30 Creat Clearance w eGFR 56.31 (>60) 06/19/17 07:30 POC Glucometer 131 UNITS (80-120) 06/20/17 05:22 Random Glucose 129 mg/dL (74-106) H D 06/19/17 07:30 Calcium 9.2 mg/dL (8.5-10.1) 06/19/17 07:30 Total Bilirubin 0.9 mg/dL (0.2-1.0) D 06/19/17 07:30 AST 12 U/L (15-37) L 06/19/17 07:30 ALT 23 U/L (12-78) 06/19/17 07:30 Alkaline Phosphatase 75 U/L (45-117) D 06/19/17 07:30 Total Protein 7.6 g/dl (6.4-8.2) 06/19/17 07:30 Albumin 3.7 g/dl (3.4-5.0) 06/19/17 07:30 Urine Color Yellow 06/19/17 07:30 Urine Appearance Clear 06/19/17 07:30 Urine pH 6.0 (5.0-8.0) 06/19/17 07:30 Ur Specific [place] 1.023 (1.001-1.035) 06/19/17 07:30 Urine Protein Negative (NEGATIVE) 06/19/17 07:30 Urine Glucose (UA) Negative (NEGATIVE) 06/19/17 07:30 Urine Ketones Negative (NEGATIVE) 06/19/17 07:30 Urine Blood Negative (NEGATIVE) 06/19/17 07:30 Urine Nitrite Negative (NEGATIVE) 06/19/17 07:30 Urine Bilirubin Negative (<2.0 mg/dL) 06/19/17 07:30 Urine Urobilinogen 4.0 e.u/dl mg/dL (0.2-1.0) 06/19/17 07:30 Ur Leukocyte Esterase Negative (NEGATIVE) 06/19/17 07:30 RPR Titer Nonreactive (NONREACTIVE) 06/19/17 07:30 Assessment: 06/20/17 09:45 WITHDRAWAL SYMPTOM Plan: CONTINUE DETOX,BGM MONITORING
[2017-06-20] MEDS ORDERED: buPROPion HCL 100 MG TABLET PO SCH (10:00)
[2017-06-20] MEDS ORDERED: buPROPion HCL 75 MG TABLET PO SCH (10:00)
[2017-06-20] MEDS: ASPIRIN COATED 81 MG TABLET.EC PO SCH (10:25)
[2017-06-20] MEDS: risperiDONE 1 MG TABLET (FP) PO SCH ×2 (10:25→22:32)
[2017-06-20] MEDS: amLODIPine BESYLATE 10 MG TABLET (FP) PO SCH (10:25)
[2017-06-20] MEDS: ATENOLOL 25 MG TABLET (FP) PO SCH (10:26)
[2017-06-20] MEDS: HYDROCHLOROTHIAZIDE 25 MG TABLET (FP) PO SCH (10:26)
[2017-06-20] MEDS: OMEGA-3 ACID ETHYL ESTERS (FATTY-ACIDS) 1 GM CAPSULE (FP) PO SCH (10:26)
[2017-06-20] MEDS: PRENATAL VITAMINS W/ FOLIC ACID TABLET (FP) PO SCH (10:26)
[2017-06-20] MEDS: NICOTINE 14 MG/24 HOURS TOPICAL PATCH TD SCH (12:16)
[2017-06-20] MEDS: LIDOCAINE 5% TOPICAL PATCH TP SCH (12:16)
[2017-06-20] MEDS: metFORMIN HCL 500 MG TABLET (FP) PO SCH (17:55)
[2017-06-20 18:16] VITALS: TEMP 97.9
[2017-06-20] MEDS: ATORVASTATIN CA 20 MG TABLET (FP) PO SCH (22:32)
[2017-06-20] MEDS: THIAMINE HCL 100 MG TABLET (FP) PO SCH (22:32)
[2017-06-20] MEDS: LIDOCAINE PATCH REMOVAL MC SCH (22:33)
[2017-06-21] MEDS: chlordiazePOXIDE 5 MG CAPSULE PO SCH ×2 (05:17→10:29)
[2017-06-21] MEDS: metFORMIN HCL 500 MG TABLET (FP) PO SCH ×2 (06:07→07:22)
[2017-06-21] MEDS: NICOTINE POLACRILEX 2 MG GUM BC PRN ×2 (06:17→10:33)
[2017-06-21 06:21] VITALS: PULSE 68
[2017-06-21 09:20] VITALS: BP 140/77
[2017-06-21] MEDS: risperiDONE 1 MG TABLET (FP) PO SCH (10:29)
[2017-06-21] MEDS: amLODIPine BESYLATE 10 MG TABLET (FP) PO SCH (10:29)
[2017-06-21] MEDS: ASPIRIN COATED 81 MG TABLET.EC PO SCH (10:29)
[2017-06-21] MEDS: PRENATAL VITAMINS W/ FOLIC ACID TABLET (FP) PO SCH (10:29)
[2017-06-21] MEDS: HYDROCHLOROTHIAZIDE 25 MG TABLET (FP) PO SCH (10:29)
--- NOTE | 2017-06-21 10:29 | PN ---
S Progress Note (SOAP) Subjective: ALERT,IRRITABLE,ANXIOUS,INTERRUPTED SLEEP Objective: 06/21/17 10:28 Vital Signs Temperature 97.9 F 06/21/17 09:19 Pulse Rate 68 06/21/17 09:19 Respiratory Rate 16 06/21/17 09:19 Blood Pressure 140/77 06/21/17 09:19 O2 Sat by Pulse Oximetry (%) Assessment: 06/21/17 10:28 WITHDRAWAL SYMPTOM Plan: CONTINUE DETOX,DISCHARGE IN AM
[2017-06-21] MEDS: NICOTINE 14 MG/24 HOURS TOPICAL PATCH TD SCH (10:30)
[2017-06-21] MEDS: OMEGA-3 ACID ETHYL ESTERS (FATTY-ACIDS) 1 GM CAPSULE (FP) PO SCH (11:06)
[2017-06-21] MEDS: ATENOLOL 25 MG TABLET (FP) PO SCH (11:06)
[2017-06-21] MEDS: LIDOCAINE 5% TOPICAL PATCH TP SCH (11:06)
--- NOTE | 2017-06-21 11:44 | PN ---
S Progress Note Note: PATIENT IS STABLE FOR DISCHARGE TODAY TO GO TO REHAB
--- NOTE | 2017-06-21 11:52 | DS ---
[facility] Detox Discharge Summary Admission Date: 06/18/17 Discharge Date: 06/21/17 - History Present History: Alcohol Dependence, Cannabis Dependence Additional Comments: FOLLOW UP WITH [facility] Pertinent Past History: ARTHRITIS HYPERTENSION HYPERCHOLESTEROLEMIA NICOTINE DEPENDENCE SPINAL STENOSIS WALKER AMBULATORY AID TYPE 2 DM - Physical Exam Results Vital Signs: Vital Signs Temperature 97.9 F 06/21/17 09:19 Pulse Rate 68 06/21/17 09:19 Respiratory Rate 16 06/21/17 09:19 Blood Pressure 140/77 06/21/17 09:19 O2 Sat by Pulse Oximetry (%) Pertinent Admission Physical Exam Findings: WITHDRAWAL SIGNS AND SYMPTOM - Treatment Hospital Course: Detox Protocol Followed, Detoxed Safely, Responded well, Discharged Condition Good, Rehab Referral Accepted Patient has Accepted a Rehab Referral to: [facility] - Medication Discharge Medications: Ambulatory Orders Aspirin Coated [Ecotrin -] 81 mg PO DAILY #30 tab 02/13/17 Amlodipine Besylate [Norvasc -] 10 mg PO DAILY #30 tab 04/18/17 Atenolol [Tenormin -] 25 mg PO DAILY #30 tab 04/18/17 Atorvastatin Ca [Lipitor] 20 mg PO HS #14 tablet 04/18/17 Hydrochlorothiazide 25 mg PO DAILY 30 Days tablet 04/18/17 Baclofen 10 mg PO BID 06/18/17 Bupropion HCl [Wellbutrin -] 300 mg PO DAILY 06/18/17 Lidocaine 5% Patch [Lidoderm -] DAILY 06/18/17 Metformin HCl 500 mg PO BID 06/18/17 Risperidone [Risperdal] 2 mg PO DAILY 06/18/17 Bupropion HCl [Wellbutrin Xl -] 300 mg PO DAILY 06/19/17 - Diagnosis (1) Alcohol dependence with uncomplicated withdrawal Current Visit: Yes Status: Acute (2) Arthritis Current Visit: Yes Status: Chronic (3) Cannabis abuse Current Visit: Yes Status: Chronic (4) History of positive PPD Current Visit: Yes Status: Chronic (5) Hypercholesteremia Current Visit: Yes Status: Chronic (6) Hypertension Current Visit: Yes Status: Chronic Qualifiers: Hypertension type: essential hypertension Qualified Code(s): I10 - Essential (primary) hypertension (7) Nicotine dependence Current Visit: Yes Status: Chronic Qualifiers: Nicotine product type: cigarettes Substance use status: in withdrawal Qualified Code(s): F17.213 - Nicotine dependence, cigarettes, with withdrawal (8) Spinal stenosis, lumbosacral region Current Visit: Yes Status: Chronic (9) Walker as ambulation aid Current Visit: Yes Status: Chronic - AMA Did Patient Leave Against Medical Advice: No
--- NOTE | 2017-06-21 13:10 | HP ---
Psychiatrist Admission - Data Date of interview: 06/21/17 Admission source: 6N Identifying data: This is one of he multiple [facility] admissions for this 62 years old single Black male, unemployed on public assistance, domiciled Medical History: Significant for Orthosurgery for hypertension, spinal stenosis , lower back pain, history of prophylactic treatment for TB with INH (2004), hypercholesterolemia and arthritis at L3-L4 level, angina and right hip replacement for avascular necrosis (2004) and fracture right fibula. Multiple allergies : haloperidol,enalapril and levofloxacin. Smokes 10 cigarettes daily Psychiatric History: History of multiple psychiatric hospitalizations.Onset of psychiatric disturbances (1985).Diagnosed with Schizoaffective Disorder.Past admissions to [facility] and [facility].Mr Noonan is still receiving outpatient psychiatric services at the [facility] OPD clinic (under the care of Dr Yao) in the [place].Prescribed wellbutrin 100 mg/ day + olanzapine 10 mg twice a day.Patient admits to sub-optimal adherence to his medications.Patient denies any history of suicide attempts.Questionable historian in view of existing report of suicide attempt,in January 2017,via deliberate self exposure to oncoming traffic. Physical/Sexual Abuse/Trauma History: Paient denies history of emotional, sexual or physical abuse. 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 Served in [employer] [facility], [employer] and [place] in the . No report of flashbacks or nightmares. Vital Signs: Vital Signs - 24 hr 06/20/17 06/20/17 06/20/17 14:00 18:15 22:00 Temperature 99.1 F 97.9 F 97.9 F Pulse Rate 73 77 75 Respiratory 16 19 18 Rate Blood Pressure 139/76 135/50 154/81 06/21/17 06/21/17 06/21/17 00:30 03:30 06:21 Temperature 97.9 F Pulse Rate 68 Respiratory 18 18 17 Rate Blood Pressure 131/75 06/21/17 09:19 Temperature 97.9 F Pulse Rate 68 Respiratory 16 Rate Blood Pressure 140/77 Allergies/Adverse Reactions: Allergies Allergy/AdvReac Type Severity Reaction Status Date / Time enalapril [Enalapril] Allergy Swelling Verified 06/18/17 21:48 haloperidol [From Haldol] Allergy Verified 06/18/17 21:48 haloperidol lactate Allergy Verified 06/18/17 21:48 [From Haldol] levofloxacin [From Levaquin] Allergy Hives Verified 06/18/17 21:48 ,Enalapril, Haldol, Levaquin Allergy Severe Hives Uncoded 06/18/17 21:48 Date of last physical exam: 06/18/17 Concur with the findings of this exam: Yes - Substance Abuse/Tx History Hx Alcohol Use: Yes Hx Substance Use: Yes Substance Use Type: Alcohol (Started drinking alcohol at age 15, consumes one pint of liquor daily. Last drank on 06/17/17), Cocaine (Started smoking crack cocaine at age 20, consumes $150 worth 1-3 times in the last 30 days. Last smoked on 06/18/17) Hx Substance Use Treatment: Yes (Multiple inpt detox & inpt rehab admissions @ [facility]) Psychiatric Findings - Problem List ([place] 1, 2,3) (1) Alcohol dependence Current Visit: Yes Status: Acute (2) Cocaine dependence Current Visit: Yes Status: Acute
[2017-06-22] MEDS ORDERED: chlordiazePOXIDE HCL 10 MG CAPSULE PO SCH (05:00)
== END 2017-06-21 12:53 | disposition other institution (70) | DRG 776 ==
LOC: YASAS 18:20 → Y6N 21:33
PROVIDERS: ADMIT Surgery; ATTEND Surgery
PROC: HZ2ZZZZ Detoxification Services for Substance Abuse Treatment (ICD-10-PCS; principal; 2017-06-18)
DX: F12.10 Cannabis abuse, uncomplicated (principal); F17.213 Nicotine dependence, cigarettes, with withdrawal; F25.9 Schizoaffective disorder, unspecified; I10 Essential (primary) hypertension; E78.00 Pure hypercholesterolemia, unspecified; E11.9 Type 2 diabetes mellitus without complications; Z79.84 Long term (current) use of oral hypoglycemic drugs; R76.11 Nonspecific reaction to tuberculin skin test without active tuberculosis; M12.9 Arthropathy, unspecified; M48.07 Spinal stenosis, lumbosacral region; R26.89 Other abnormalities of gait and mobility; Z88.8 Allergy status to other drugs, medicaments and biological substances; Z91.5 Personal history of self-harm
CPT/HCPCS: 36415; 71046-TC-FY; 80053; 81003; 82962; 85027; 86593; 93005; 93010; J2794

== ENCOUNTER 2017-06-21 12:59 | Inpatient (IN) | payer OTHER ==
--- NOTE | 2017-06-21 13:29 | HP ---
Psychiatrist Admission - Data Date of interview: 06/21/17 Admission source: 6N Identifying data: This is one of he multiple [facility] admissions for this 62 years old single Black male, unemployed on public assistance, domiciled Medical History: Significant for hypertension, dyslipidemia, type 2 diabetes mellitus, spinal stenosis, lower back pain, history of prophylactic treatment for TB with INH (2004), arthritis at L3-L4 level, angina, history of right hip replacement for avascular necrosis (2003) and fracture right fibula in 1996. Smokes 10 cigarettes daily Psychiatric History: Onset of psychiatric disturbances in 1985 when he was admitted to [facility] and diagnosed with Schizoaffective Disorder. Reports multiple psychiatric admissions to various institutions including to [facility], [facility], [facility], [facility] and [facility] in [facility] and most recently in April 2017 to [facility] for depression, suicidal ideations and auditory hallucinations. He said Dr Mcbride who was his assigned psychiatrist at [facility] substituted Risperdal for Zyprexa due to the risk of diabetes according to test result. So he was discharged on Risperdal 2 mg po daily and Wellbutrin XL 300 mg po daily. Mr Noonan is still receiving outpatient psychiatric services at the [facility] clinic (under the care of Dr Yao) in the [place]. Patient admits to sub-optimal adherence to his medications.Patient denies any history of suicide attempts. Report of history of one suicide attempt ,in January 2017,via deliberate self exposure to oncoming traffic. At present, reports feeling and sleeping well. Denies experincing psychotic, manic or depressive symptoms, S/H idetions Physical/Sexual Abuse/Trauma History: Patient denies history of emotional, sexual or physical abuse as well as DV relationship. Patient is a [employer] (3 years of active duty: [id number]). Served in [employer] [facility], [employer] [facility] and [place] in the . No report of flashbacks or nightmares. Additional Comment: Reports history of multiple previous arrests including 3 felony convictions. Reports being off parole for 8 years Allergies/Adverse Reactions: Allergies Allergy/AdvReac Type Severity Reaction Status Date / Time enalapril [Enalapril] Allergy Swelling Verified 06/18/17 21:48 haloperidol [From Haldol] Allergy Verified 06/18/17 21:48 haloperidol lactate Allergy Verified 06/18/17 21:48 [From Haldol] levofloxacin [From Levaquin] Allergy Hives Verified 06/18/17 21:48 ,Enalapril, Haldol, Levaquin Allergy Severe Hives Uncoded 06/18/17 21:48 - Substance Abuse/Tx History Hx Alcohol Use: Yes Hx Substance Use: Yes Substance Use Type: Alcohol (Alcohol Started drinking alcohol at age 15, consumes one pint of liquor daily. Last drank on 06/17/17)), Cocaine (Started smoking crack cocaine at age 20, consumes $150 worth 1-3 times in the last 30 days. Last smoked on 06/18/17)) Hx Substance Use Treatment: Yes (Multiple inpt detox & inpt rehab admissions @ [facility]) Mental Status Exam - Mental Status Exam Alert and Oriented to: Place, Person Cognitive Function: Fair Patient Appearance: Well Groomed Mood: Hopeful, Euthymic Patient Behavior: Cooperative Speech Pattern: Clear Voice Loudness: Normal Thought Process: Intact Hallucinations: Denies Suicidal Ideation: Denies Homicidal Ideation: Denies Insight/Judgement: Fair Sleep: Well Appetite: Fair (uses a walker as ambulatory aid) Muscle strength/Tone: Normal Gait/Station: Other (uses a) Psychiatric Findings - Problem List ([place] 1, 2,3) (1) Alcohol dependence Current Visit: No Status: Acute (2) Cocaine dependence Current Visit: No Status: Acute (3) Nicotine dependence Current Visit: No Status: Chronic Qualifiers: Nicotine product type: cigarettes Substance use status: in withdrawal Qualified Code(s): F17.213 - Nicotine dependence, cigarettes, with withdrawal (4) Schizoaffective disorder Current Visit: No Status: Chronic Qualifiers: Schizoaffective disorder type: depressive Qualified Code(s): F25.1 - Schizoaffective disorder, depressive type Comment: History. Compliant with medication. (5) Arthritis Current Visit: No Status: Chronic (6) History of positive PPD Current Visit: No Status: Chronic (7) Hypercholesteremia Current Visit: No Status: Chronic (8) Hypertension Current Visit: No Status: Chronic Qualifiers: Hypertension type: essential hypertension Qualified Code(s): I10 - Essential (primary) hypertension (9) Spinal stenosis, lumbosacral region Current Visit: No Status: Chronic (10) Walker as ambulation aid Current Visit: No Status: Chronic (11) Diabetes mellitus Current Visit: Yes Status: Chronic - Initial Treatment Plan Initial Treatment Plan: 1) Continue Wellbutrin XL 300 mg po daily and Risperdal 2 mg po daily. 2) Monitor progress
[2017-06-21] MEDS ORDERED: P-EPHED 60MG/TRIPROLIDI 2.5MG TABLET PO PRN (14:52)
[2017-06-21] MEDS ORDERED: MENTHOL/PHENOL 1 EACH UD MM PRN (14:52)
[2017-06-21] MEDS ORDERED: ACETAMINOPHEN 325 MG TABLET (FP) PO PRN (14:52)
[2017-06-21] MEDS ORDERED: MAGNESIUM HYDROX 2400MG/30ML ORAL SUSPENSION 30 ML CUP PO PRN (14:52)
[2017-06-21] MEDS ORDERED: guaiFENesin/D-METHORPHAN HB 10 ML UNIT-DOSE CUPS PO PRN (14:52)
[2017-06-21] MEDS ORDERED: MAGNESIUM CITRATE 300 ML BOTTLE PO PRN (14:52)
[2017-06-21] MEDS ORDERED: LOPERAMIDE HCL 2 MG CAPSULE PO PRN (14:52)
[2017-06-21] MEDS ORDERED: MAG HYDROX/AL HYDROX/SIMETH 30 ML UNIT-DOSE CUP PO PRN (14:52)
--- NOTE | 2017-06-21 14:53 | HP ---
[facility] Re[facility] Assess/Revision - Admission History Admitted to Rehab from: [facility] Date of Admission to Rehab: 06/21/17 - Findings Detox History & Physical reviewed: Yes Concur with findings: Yes Inpatient Rehab Admission - Initial Determination Are CD services needed?: Yes Free of communicable disease: Yes Not in need of hospitalization: Yes - Rehab Admission Criteria Previous failed treatment: Yes Poor recovery environment: Yes Comorbidities: Yes Lacks judgement: Yes Patient is meeting Inpatient Rehab admission criteria:: Yes
[2017-06-21 15:32] VITALS: BMI 31.2
[2017-06-21] MEDS: metFORMIN HCL 500 MG TABLET (FP) PO SCH (16:51)
[2017-06-21] MEDS: NICOTINE POLACRILEX 2 MG GUM BUC PRN ×2 (16:52→21:34)
[2017-06-21] MEDS: THIAMINE HCL 100 MG TABLET (FP) PO SCH (21:33)
[2017-06-21] MEDS: BACLOFEN 10 MG TABLET (FP) PO SCH (21:33)
[2017-06-21] MEDS: ATORVASTATIN CA 20 MG TABLET (FP) PO SCH (21:33)
[2017-06-21] MEDS ORDERED: MELATONIN 5 MG TABLETS PO PRN (22:00)
[2017-06-22] MEDS: metFORMIN HCL 500 MG TABLET (FP) PO SCH ×2 (06:12→17:02)
[2017-06-22] MEDS: INSULIN SLIDING SCALE (NOVOLOG) 1 VIAL SQ SCH ×2 (06:13→17:00)
[2017-06-22] MEDS: NICOTINE POLACRILEX 2 MG GUM BUC PRN ×5 (06:13→21:37)
[2017-06-22] MEDS ORDERED: PNEUMOC 13-VAL CONJ-DIP CRM/PF 0.5 ML DISP.SYRIN IM ONE (10:00)
[2017-06-22] MEDS: BACLOFEN 10 MG TABLET (FP) PO SCH ×2 (10:09→21:36)
[2017-06-22] MEDS: NICOTINE 14 MG/24 HOURS TOPICAL PATCH TD SCH (10:09)
[2017-06-22] MEDS: HYDROCHLOROTHIAZIDE 25 MG TABLET (FP) PO SCH (10:09)
[2017-06-22] MEDS: OMEGA-3 ACID ETHYL ESTERS (FATTY-ACIDS) 1 GM CAPSULE (FP) PO SCH (10:09)
[2017-06-22] MEDS: LIDOCAINE 5% TOPICAL PATCH TP SCH (10:09)
[2017-06-22] MEDS: risperiDONE 2 MG TABLET PO SCH (10:09)
[2017-06-22] MEDS: PRENATAL VITAMINS W/ FOLIC ACID TABLET (FP) PO SCH (10:09)
[2017-06-22] MEDS ORDERED: PNEUMOCOCCAL 23 VACCINE 0.5 ML VIAL IM ONE (12:00)
--- NOTE | 2017-06-22 13:35 | PN ---
S Progress Note Note: Patient presents with oral gum pain due to tooth decay. Vital Signs Temperature 98.1 F 06/22/17 07:28 Pulse Rate 71 06/22/17 09:35 Respiratory Rate 18 06/22/17 07:28 Blood Pressure 133/71 06/22/17 09:35 O2 Sat by Pulse Oximetry (%) Obj: General: skin warm and dry. Oral cavity: +tooth decay. Oral mucosa pink and moist. No ulcerations or lesions. A/P: Gingival pain Oragel ordered every 2 hours prn continue to monitor clinically
[2017-06-22] MEDS: BENZOCAINE 20 % GEL 9 GM TUBE MM PRN (14:25)
[2017-06-22] MEDS: ATORVASTATIN CA 20 MG TABLET (FP) PO SCH (21:35)
[2017-06-22] MEDS: IBUPROFEN 400 MG TABLET (FP) PO PRN (21:36)
[2017-06-22] MEDS: THIAMINE HCL 100 MG TABLET (FP) PO SCH (21:36)
[2017-06-23] MEDS: CYCLOBENZAPRINE HCL 10 MG TABLET (FP) PO PRN (01:40)
[2017-06-23] MEDS: metFORMIN HCL 500 MG TABLET (FP) PO SCH ×2 (07:06→17:05)
[2017-06-23] MEDS: INSULIN SLIDING SCALE (NOVOLOG) 1 VIAL SQ SCH ×2 (07:06→17:05)
[2017-06-23] MEDS: PRENATAL VITAMINS W/ FOLIC ACID TABLET (FP) PO SCH (10:26)
[2017-06-23] MEDS: OMEGA-3 ACID ETHYL ESTERS (FATTY-ACIDS) 1 GM CAPSULE (FP) PO SCH (10:26)
[2017-06-23] MEDS: HYDROCHLOROTHIAZIDE 25 MG TABLET (FP) PO SCH (10:26)
[2017-06-23] MEDS: BACLOFEN 10 MG TABLET (FP) PO SCH ×2 (10:26→21:33)
[2017-06-23] MEDS: risperiDONE 2 MG TABLET PO SCH (10:26)
[2017-06-23] MEDS: NICOTINE 14 MG/24 HOURS TOPICAL PATCH TD SCH (10:27)
[2017-06-23] MEDS: LIDOCAINE 5% TOPICAL PATCH TP SCH (10:27)
[2017-06-23] MEDS: BENZOCAINE 20 % GEL 9 GM TUBE MM PRN (10:28)
[2017-06-23] MEDS: NICOTINE POLACRILEX 2 MG GUM BUC PRN ×3 (10:31→21:34)
[2017-06-23] MEDS: ATORVASTATIN CA 20 MG TABLET (FP) PO SCH (21:33)
[2017-06-23] MEDS: THIAMINE HCL 100 MG TABLET (FP) PO SCH (21:33)
[2017-06-24] MEDS: CYCLOBENZAPRINE HCL 10 MG TABLET (FP) PO PRN (03:24)
[2017-06-24] MEDS: NICOTINE POLACRILEX 2 MG GUM BUC PRN ×5 (06:05→21:26)
[2017-06-24] MEDS: metFORMIN HCL 500 MG TABLET (FP) PO SCH ×2 (07:07→17:04)
[2017-06-24] MEDS: INSULIN SLIDING SCALE (NOVOLOG) 1 VIAL SQ SCH ×2 (07:07→17:37)
[2017-06-24] MEDS: PRENATAL VITAMINS W/ FOLIC ACID TABLET (FP) PO SCH (10:09)
[2017-06-24] MEDS: NICOTINE 14 MG/24 HOURS TOPICAL PATCH TD SCH (10:09)
[2017-06-24] MEDS: risperiDONE 2 MG TABLET PO SCH (10:11)
[2017-06-24] MEDS: BACLOFEN 10 MG TABLET (FP) PO SCH ×2 (10:11→21:22)
[2017-06-24] MEDS: HYDROCHLOROTHIAZIDE 25 MG TABLET (FP) PO SCH (10:11)
[2017-06-24] MEDS: LIDOCAINE 5% TOPICAL PATCH TP SCH (10:12)
[2017-06-24] MEDS: OMEGA-3 ACID ETHYL ESTERS (FATTY-ACIDS) 1 GM CAPSULE (FP) PO SCH (10:12)
[2017-06-24] MEDS: BENZOCAINE 20 % GEL 9 GM TUBE MM PRN (10:14)
--- NOTE | 2017-06-24 12:15 | PN ---
[facility] Progress Note Note: irritation in both eyes,dry eye,artificial eye drop 1 gtt both eyes tid no discharge ,close onitoring
[2017-06-24] MEDS: ATORVASTATIN CA 20 MG TABLET (FP) PO SCH (21:22)
[2017-06-24] MEDS: ARTIFICIAL TEARS (POLYVINYL ALCOHOL 1.4%) OPTH DROPS OU SCH ×2 (21:22)
[2017-06-24] MEDS: THIAMINE HCL 100 MG TABLET (FP) PO SCH (21:22)
[2017-06-25] MEDS: ARTIFICIAL TEARS (POLYVINYL ALCOHOL 1.4%) OPTH DROPS OU SCH ×3 (06:09→21:45)
[2017-06-25] MEDS: metFORMIN HCL 500 MG TABLET (FP) PO SCH ×2 (06:11→17:07)
[2017-06-25] MEDS: INSULIN SLIDING SCALE (NOVOLOG) 1 VIAL SQ SCH ×2 (06:12→17:31)
[2017-06-25] MEDS: NICOTINE POLACRILEX 2 MG GUM BUC PRN ×4 (06:13→17:08)
[2017-06-25] MEDS: risperiDONE 2 MG TABLET PO SCH (10:12)
[2017-06-25] MEDS: HYDROCHLOROTHIAZIDE 25 MG TABLET (FP) PO SCH (10:12)
[2017-06-25] MEDS: PRENATAL VITAMINS W/ FOLIC ACID TABLET (FP) PO SCH (10:12)
[2017-06-25] MEDS: NICOTINE 14 MG/24 HOURS TOPICAL PATCH TD SCH (10:12)
[2017-06-25] MEDS: BACLOFEN 10 MG TABLET (FP) PO SCH ×2 (10:12→21:11)
[2017-06-25] MEDS: LIDOCAINE 5% TOPICAL PATCH TP SCH (10:12)
[2017-06-25] MEDS: OMEGA-3 ACID ETHYL ESTERS (FATTY-ACIDS) 1 GM CAPSULE (FP) PO SCH (10:12)
[2017-06-25] MEDS: THIAMINE HCL 100 MG TABLET (FP) PO SCH (21:09)
[2017-06-25] MEDS: ATORVASTATIN CA 20 MG TABLET (FP) PO SCH (21:10)
[2017-06-26] MEDS: NICOTINE POLACRILEX 2 MG GUM BUC PRN ×5 (05:51→21:59)
[2017-06-26] MEDS: ARTIFICIAL TEARS (POLYVINYL ALCOHOL 1.4%) OPTH DROPS OU SCH ×3 (05:52→21:59)
[2017-06-26] MEDS: metFORMIN HCL 500 MG TABLET (FP) PO SCH ×2 (07:00→16:50)
[2017-06-26] MEDS: INSULIN SLIDING SCALE (NOVOLOG) 1 VIAL SQ SCH ×2 (07:01→16:51)
[2017-06-26] MEDS: ASPIRIN COATED 81 MG TABLET.EC PO SCH (09:58)
[2017-06-26] MEDS: HYDROCHLOROTHIAZIDE 25 MG TABLET (FP) PO SCH (09:58)
[2017-06-26] MEDS: NICOTINE 14 MG/24 HOURS TOPICAL PATCH TD SCH (09:58)
[2017-06-26] MEDS: ATENOLOL 50 MG TABLET (FP) PO SCH (09:59)
[2017-06-26] MEDS: PRENATAL VITAMINS W/ FOLIC ACID TABLET (FP) PO SCH (09:59)
[2017-06-26] MEDS: BACLOFEN 10 MG TABLET (FP) PO SCH ×2 (09:59→21:58)
[2017-06-26] MEDS: LIDOCAINE 5% TOPICAL PATCH TP SCH (09:59)
[2017-06-26] MEDS: risperiDONE 2 MG TABLET PO SCH (09:59)
[2017-06-26] MEDS: OMEGA-3 ACID ETHYL ESTERS (FATTY-ACIDS) 1 GM CAPSULE (FP) PO SCH (09:59)
[2017-06-26] MEDS: CYCLOBENZAPRINE HCL 10 MG TABLET (FP) PO PRN (11:36)
[2017-06-26] MEDS ORDERED: PT OWN MED DRAWER 7, Y5N ONE ×2 (13:07→22:18)
[2017-06-26] MEDS: THIAMINE HCL 100 MG TABLET (FP) PO SCH (21:57)
[2017-06-26] MEDS: ATORVASTATIN CA 20 MG TABLET (FP) PO SCH (21:58)
[2017-06-26] MEDS: IBUPROFEN 400 MG TABLET (FP) PO PRN (21:58)
[2017-06-27] MEDS: NICOTINE POLACRILEX 2 MG GUM BUC PRN ×5 (05:58→21:32)
[2017-06-27] MEDS: metFORMIN HCL 500 MG TABLET (FP) PO SCH ×2 (06:17→16:55)
[2017-06-27] MEDS: ARTIFICIAL TEARS (POLYVINYL ALCOHOL 1.4%) OPTH DROPS OU SCH ×3 (06:18→21:31)
[2017-06-27] MEDS: INSULIN SLIDING SCALE (NOVOLOG) 1 VIAL SQ SCH ×2 (06:58→16:55)
[2017-06-27] MEDS: BACLOFEN 10 MG TABLET (FP) PO SCH ×2 (10:13→21:31)
[2017-06-27] MEDS: NICOTINE 14 MG/24 HOURS TOPICAL PATCH TD SCH (10:13)
[2017-06-27] MEDS: ATENOLOL 50 MG TABLET (FP) PO SCH (10:14)
[2017-06-27] MEDS: HYDROCHLOROTHIAZIDE 25 MG TABLET (FP) PO SCH (10:14)
[2017-06-27] MEDS: PRENATAL VITAMINS W/ FOLIC ACID TABLET (FP) PO SCH (10:14)
[2017-06-27] MEDS: risperiDONE 2 MG TABLET PO SCH (10:14)
[2017-06-27] MEDS: ASPIRIN COATED 81 MG TABLET.EC PO SCH (10:14)
[2017-06-27] MEDS: OMEGA-3 ACID ETHYL ESTERS (FATTY-ACIDS) 1 GM CAPSULE (FP) PO SCH (10:14)
[2017-06-27] MEDS: LIDOCAINE 5% TOPICAL PATCH TP SCH (10:15)
[2017-06-27] MEDS ORDERED: PT OWN MED DRAWER 7, Y5N ONE (15:58)
[2017-06-27] MEDS: THIAMINE HCL 100 MG TABLET (FP) PO SCH (21:31)
[2017-06-27] MEDS: ATORVASTATIN CA 20 MG TABLET (FP) PO SCH (21:31)
[2017-06-28] MEDS: ARTIFICIAL TEARS (POLYVINYL ALCOHOL 1.4%) OPTH DROPS OU SCH ×3 (06:05→22:22)
[2017-06-28] MEDS: metFORMIN HCL 500 MG TABLET (FP) PO SCH ×2 (06:06→17:12)
[2017-06-28] MEDS: NICOTINE POLACRILEX 2 MG GUM BUC PRN ×3 (06:06→12:41)
[2017-06-28] MEDS: INSULIN SLIDING SCALE (NOVOLOG) 1 VIAL SQ SCH ×2 (06:43→17:13)
[2017-06-28] MEDS: HYDROCHLOROTHIAZIDE 25 MG TABLET (FP) PO SCH (10:00)
[2017-06-28] MEDS: ASPIRIN COATED 81 MG TABLET.EC PO SCH (10:00)
[2017-06-28] MEDS: OMEGA-3 ACID ETHYL ESTERS (FATTY-ACIDS) 1 GM CAPSULE (FP) PO SCH (10:00)
[2017-06-28] MEDS: PRENATAL VITAMINS W/ FOLIC ACID TABLET (FP) PO SCH (10:01)
[2017-06-28] MEDS: BACLOFEN 10 MG TABLET (FP) PO SCH ×2 (10:01→22:22)
[2017-06-28] MEDS: LIDOCAINE 5% TOPICAL PATCH TP SCH (10:01)
[2017-06-28] MEDS: NICOTINE 14 MG/24 HOURS TOPICAL PATCH TD SCH (10:02)
[2017-06-28] MEDS: ATENOLOL 50 MG TABLET (FP) PO SCH (10:03)
[2017-06-28] MEDS: risperiDONE 2 MG TABLET PO SCH (10:03)
[2017-06-28] MEDS: BENZOCAINE 20 % GEL 9 GM TUBE MM PRN (10:04)
[2017-06-28] MEDS ORDERED: PT OWN MED DRAWER 7, Y5N ONE (10:05)
[2017-06-28] MEDS: IBUPROFEN 400 MG TABLET (FP) PO PRN (14:26)
[2017-06-28] MEDS: ATORVASTATIN CA 20 MG TABLET (FP) PO SCH (22:22)
[2017-06-28] MEDS: THIAMINE HCL 100 MG TABLET (FP) PO SCH (22:22)
[2017-06-29] MEDS: CYCLOBENZAPRINE HCL 10 MG TABLET (FP) PO PRN (04:13)
[2017-06-29] MEDS: IBUPROFEN 400 MG TABLET (FP) PO PRN (04:13)
[2017-06-29] MEDS: metFORMIN HCL 500 MG TABLET (FP) PO SCH ×2 (06:47→17:08)
[2017-06-29] MEDS: ARTIFICIAL TEARS (POLYVINYL ALCOHOL 1.4%) OPTH DROPS OU SCH ×3 (06:47→22:16)
[2017-06-29] MEDS: NICOTINE POLACRILEX 2 MG GUM BUC PRN ×5 (06:51→22:17)
[2017-06-29] MEDS: INSULIN SLIDING SCALE (NOVOLOG) 1 VIAL SQ SCH ×2 (07:04→17:48)
[2017-06-29] MEDS: PRENATAL VITAMINS W/ FOLIC ACID TABLET (FP) PO SCH (09:48)
[2017-06-29] MEDS: ASPIRIN COATED 81 MG TABLET.EC PO SCH (09:48)
[2017-06-29] MEDS: OMEGA-3 ACID ETHYL ESTERS (FATTY-ACIDS) 1 GM CAPSULE (FP) PO SCH (09:48)
[2017-06-29] MEDS: HYDROCHLOROTHIAZIDE 25 MG TABLET (FP) PO SCH (09:48)
[2017-06-29] MEDS: ATENOLOL 50 MG TABLET (FP) PO SCH (09:48)
[2017-06-29] MEDS: LIDOCAINE 5% TOPICAL PATCH TP SCH (09:48)
[2017-06-29] MEDS: risperiDONE 2 MG TABLET PO SCH (09:48)
[2017-06-29] MEDS: BACLOFEN 10 MG TABLET (FP) PO SCH ×2 (09:48→22:16)
[2017-06-29] MEDS: NICOTINE 14 MG/24 HOURS TOPICAL PATCH TD SCH (09:49)
[2017-06-29] MEDS: BENZOCAINE 20 % GEL 9 GM TUBE MM PRN (10:02)
[2017-06-29] MEDS ORDERED: PT OWN MED DRAWER 7, Y5N ONE (10:02)
[2017-06-29] MEDS: ATORVASTATIN CA 20 MG TABLET (FP) PO SCH (22:16)
[2017-06-29] MEDS: THIAMINE HCL 100 MG TABLET (FP) PO SCH (22:16)
[2017-06-30] MEDS: metFORMIN HCL 500 MG TABLET (FP) PO SCH ×2 (06:12→16:53)
[2017-06-30] MEDS: ARTIFICIAL TEARS (POLYVINYL ALCOHOL 1.4%) OPTH DROPS OU SCH ×3 (06:12→21:05)
[2017-06-30] MEDS: INSULIN SLIDING SCALE (NOVOLOG) 1 VIAL SQ SCH ×2 (06:14→16:54)
[2017-06-30] MEDS: risperiDONE 2 MG TABLET PO SCH (09:48)
[2017-06-30] MEDS: BACLOFEN 10 MG TABLET (FP) PO SCH ×2 (09:48→21:04)
[2017-06-30] MEDS: NICOTINE 14 MG/24 HOURS TOPICAL PATCH TD SCH (09:48)
[2017-06-30] MEDS: LIDOCAINE 5% TOPICAL PATCH TP SCH (09:48)
[2017-06-30] MEDS: OMEGA-3 ACID ETHYL ESTERS (FATTY-ACIDS) 1 GM CAPSULE (FP) PO SCH (09:48)
[2017-06-30] MEDS: HYDROCHLOROTHIAZIDE 25 MG TABLET (FP) PO SCH (09:49)
[2017-06-30] MEDS: PRENATAL VITAMINS W/ FOLIC ACID TABLET (FP) PO SCH (09:49)
[2017-06-30] MEDS: ASPIRIN COATED 81 MG TABLET.EC PO SCH (09:49)
[2017-06-30] MEDS: ATENOLOL 50 MG TABLET (FP) PO SCH (09:49)
[2017-06-30] MEDS: NICOTINE POLACRILEX 2 MG GUM BUC PRN ×5 (09:50→21:05)
[2017-06-30] MEDS: ATORVASTATIN CA 20 MG TABLET (FP) PO SCH (21:04)
[2017-06-30] MEDS: THIAMINE HCL 100 MG TABLET (FP) PO SCH (21:05)
[2017-07-01] MEDS: ARTIFICIAL TEARS (POLYVINYL ALCOHOL 1.4%) OPTH DROPS OU SCH ×3 (06:20→21:19)
[2017-07-01] MEDS: metFORMIN HCL 500 MG TABLET (FP) PO SCH ×2 (06:20→16:59)
[2017-07-01] MEDS: BENZOCAINE 20 % GEL 9 GM TUBE MM PRN (06:21)
[2017-07-01] MEDS ORDERED: PT OWN MED DRAWER 7, Y5N ONE ×2 (06:21→14:29)
[2017-07-01] MEDS: INSULIN SLIDING SCALE (NOVOLOG) 1 VIAL SQ SCH ×2 (06:46→16:52)
[2017-07-01] MEDS: BACLOFEN 10 MG TABLET (FP) PO SCH ×2 (09:51→21:19)
[2017-07-01] MEDS: LIDOCAINE 5% TOPICAL PATCH TP SCH (09:51)
[2017-07-01] MEDS: OMEGA-3 ACID ETHYL ESTERS (FATTY-ACIDS) 1 GM CAPSULE (FP) PO SCH (09:51)
[2017-07-01] MEDS: risperiDONE 2 MG TABLET PO SCH (09:51)
[2017-07-01] MEDS: PRENATAL VITAMINS W/ FOLIC ACID TABLET (FP) PO SCH (09:51)
[2017-07-01] MEDS: ASPIRIN COATED 81 MG TABLET.EC PO SCH (09:51)
[2017-07-01] MEDS: NICOTINE 14 MG/24 HOURS TOPICAL PATCH TD SCH (09:52)
[2017-07-01] MEDS: HYDROCHLOROTHIAZIDE 25 MG TABLET (FP) PO SCH (09:52)
[2017-07-01] MEDS: ATENOLOL 50 MG TABLET (FP) PO SCH (09:53)
[2017-07-01] MEDS: NICOTINE POLACRILEX 2 MG GUM BUC PRN ×3 (09:55→21:20)
[2017-07-01] MEDS: ATORVASTATIN CA 20 MG TABLET (FP) PO SCH (21:19)
[2017-07-01] MEDS: THIAMINE HCL 100 MG TABLET (FP) PO SCH (21:19)
[2017-07-02] MEDS: ARTIFICIAL TEARS (POLYVINYL ALCOHOL 1.4%) OPTH DROPS OU SCH ×3 (06:42→23:32)
[2017-07-02] MEDS: INSULIN SLIDING SCALE (NOVOLOG) 1 VIAL SQ SCH ×2 (06:43→16:53)
[2017-07-02] MEDS: metFORMIN HCL 500 MG TABLET (FP) PO SCH ×2 (06:43→16:53)
[2017-07-02] MEDS: NICOTINE POLACRILEX 2 MG GUM BUC PRN ×2 (06:44→10:00)
[2017-07-02] MEDS: risperiDONE 2 MG TABLET PO SCH (09:55)
[2017-07-02] MEDS: PRENATAL VITAMINS W/ FOLIC ACID TABLET (FP) PO SCH (09:55)
[2017-07-02] MEDS: OMEGA-3 ACID ETHYL ESTERS (FATTY-ACIDS) 1 GM CAPSULE (FP) PO SCH (09:56)
[2017-07-02] MEDS: ASPIRIN COATED 81 MG TABLET.EC PO SCH (09:56)
[2017-07-02] MEDS: HYDROCHLOROTHIAZIDE 25 MG TABLET (FP) PO SCH (09:56)
[2017-07-02] MEDS: BACLOFEN 10 MG TABLET (FP) PO SCH ×2 (09:56→22:00)
[2017-07-02] MEDS: LIDOCAINE 5% TOPICAL PATCH TP SCH (09:56)
[2017-07-02] MEDS: ATENOLOL 50 MG TABLET (FP) PO SCH (09:56)
[2017-07-02] MEDS: NICOTINE 14 MG/24 HOURS TOPICAL PATCH TD SCH (09:56)
[2017-07-02] MEDS: BENZOCAINE 20 % GEL 9 GM TUBE MM PRN (11:51)
[2017-07-02] MEDS: IBUPROFEN 400 MG TABLET (FP) PO PRN (12:51)
--- NOTE | 2017-07-02 13:59 | PN ---
[facility] Progress Note Note: PATIENT COMPLAIN OF TOOTHACHE AND PAIN TO GUMS X 2 DAYS. Laboratory Tests 06/21/17 06/22/17 06/22/17 16:49 06:12 17:00 POC Glucometer 115 121 125 06/23/17 06/23/17 06/24/17 06:00 17:04 06:04 POC Glucometer 121 139 130 06/24/17 06/25/17 06/25/17 17:03 06:11 17:06 POC Glucometer 101 130 140 06/26/17 06/26/17 06/27/17 05:50 16:49 05:56 POC Glucometer 138 115 125 06/27/17 16:55 POC Glucometer 130 Vital Signs Temperature 98 F 07/02/17 06:20 Pulse Rate 70 07/02/17 10:00 Respiratory Rate 18 07/02/17 10:00 Blood Pressure 156/90 07/02/17 10:00 O2 Sat by Pulse Oximetry (%) OBJ: GENERAL: ALERT AND ORIENTED X 3. IN NO ACUTE DISTRESS. SKIN: AFEBRILE. WARM AND DRY ENT: NO NASAL DISCHARGE, ORAL MUCOSA PINK AND MOIST. TOOTH DECAY OF REMAINING TEETH NOTED. MILD SWELLING OF INNER RIGHT SIDE INNER CHEEK. A/P: INFECTED TOOTH WILL CONTINUE ORAGEL FOR PAIN ADD AMOXICILLIN 500MG TID X 7 DAYS CONTINUE TO MONITOR CLINICALLY
[2017-07-02] MEDS: AMOXICILLIN 500 MG CAPSULE (FP) PO SCH ×2 (14:52→22:00)
[2017-07-02] MEDS: ATORVASTATIN CA 20 MG TABLET (FP) PO SCH (22:00)
[2017-07-02] MEDS: THIAMINE HCL 100 MG TABLET (FP) PO SCH (22:00)
[2017-07-03] MEDS: ARTIFICIAL TEARS (POLYVINYL ALCOHOL 1.4%) OPTH DROPS OU SCH ×3 (05:59→21:03)
[2017-07-03] MEDS: AMOXICILLIN 500 MG CAPSULE (FP) PO SCH ×3 (05:59→21:03)
[2017-07-03] MEDS: metFORMIN HCL 500 MG TABLET (FP) PO SCH ×2 (05:59→16:29)
[2017-07-03] MEDS: INSULIN SLIDING SCALE (NOVOLOG) 1 VIAL SQ SCH ×2 (07:31→16:29)
[2017-07-03] MEDS: HYDROCHLOROTHIAZIDE 25 MG TABLET (FP) PO SCH (09:59)
[2017-07-03] MEDS: OMEGA-3 ACID ETHYL ESTERS (FATTY-ACIDS) 1 GM CAPSULE (FP) PO SCH (09:59)
[2017-07-03] MEDS: ASPIRIN COATED 81 MG TABLET.EC PO SCH (10:00)
[2017-07-03] MEDS: PRENATAL VITAMINS W/ FOLIC ACID TABLET (FP) PO SCH (10:00)
[2017-07-03] MEDS: IBUPROFEN 400 MG TABLET (FP) PO PRN ×2 (10:00→21:03)
[2017-07-03] MEDS: risperiDONE 2 MG TABLET PO SCH (10:00)
[2017-07-03] MEDS: NICOTINE 14 MG/24 HOURS TOPICAL PATCH TD SCH (10:00)
[2017-07-03] MEDS: ATENOLOL 50 MG TABLET (FP) PO SCH (10:00)
[2017-07-03] MEDS: LIDOCAINE 5% TOPICAL PATCH TP SCH (10:01)
[2017-07-03] MEDS: BACLOFEN 10 MG TABLET (FP) PO SCH ×2 (10:02→21:03)
[2017-07-03] MEDS: NICOTINE POLACRILEX 2 MG GUM BUC PRN ×3 (10:06→16:48)
[2017-07-03] MEDS: ATORVASTATIN CA 20 MG TABLET (FP) PO SCH (21:03)
[2017-07-03] MEDS: THIAMINE HCL 100 MG TABLET (FP) PO SCH (21:04)
[2017-07-04] MEDS: AMOXICILLIN 500 MG CAPSULE (FP) PO SCH ×3 (10:09→21:45)
[2017-07-04] MEDS: ARTIFICIAL TEARS (POLYVINYL ALCOHOL 1.4%) OPTH DROPS OU SCH ×3 (10:09→21:45)
[2017-07-04] MEDS: metFORMIN HCL 500 MG TABLET (FP) PO SCH ×2 (10:10→17:03)
[2017-07-04] MEDS: INSULIN SLIDING SCALE (NOVOLOG) 1 VIAL SQ SCH ×2 (10:10→16:49)
[2017-07-04] MEDS: HYDROCHLOROTHIAZIDE 25 MG TABLET (FP) PO SCH (10:11)
[2017-07-04] MEDS: OMEGA-3 ACID ETHYL ESTERS (FATTY-ACIDS) 1 GM CAPSULE (FP) PO SCH (10:11)
[2017-07-04] MEDS: LIDOCAINE 5% TOPICAL PATCH TP SCH (10:11)
[2017-07-04] MEDS: NICOTINE 14 MG/24 HOURS TOPICAL PATCH TD SCH (10:11)
[2017-07-04] MEDS: ATENOLOL 50 MG TABLET (FP) PO SCH (10:11)
[2017-07-04] MEDS: PRENATAL VITAMINS W/ FOLIC ACID TABLET (FP) PO SCH (10:11)
[2017-07-04] MEDS: BACLOFEN 10 MG TABLET (FP) PO SCH ×2 (10:11→21:43)
[2017-07-04] MEDS: ASPIRIN COATED 81 MG TABLET.EC PO SCH (10:11)
[2017-07-04] MEDS: risperiDONE 2 MG TABLET PO SCH (10:11)
[2017-07-04] MEDS: IBUPROFEN 400 MG TABLET (FP) PO PRN ×2 (10:13→21:44)
[2017-07-04] MEDS: NICOTINE POLACRILEX 2 MG GUM BUC PRN ×2 (10:13→13:53)
[2017-07-04] MEDS: ATORVASTATIN CA 20 MG TABLET (FP) PO SCH (21:43)
[2017-07-04] MEDS: THIAMINE HCL 100 MG TABLET (FP) PO SCH (21:45)
[2017-07-05] MEDS: ARTIFICIAL TEARS (POLYVINYL ALCOHOL 1.4%) OPTH DROPS OU SCH ×3 (06:07→22:38)
[2017-07-05] MEDS: metFORMIN HCL 500 MG TABLET (FP) PO SCH ×2 (06:07→17:12)
[2017-07-05] MEDS: AMOXICILLIN 500 MG CAPSULE (FP) PO SCH ×3 (06:07→21:26)
[2017-07-05] MEDS: INSULIN SLIDING SCALE (NOVOLOG) 1 VIAL SQ SCH ×2 (06:09→17:12)
[2017-07-05] MEDS: PRENATAL VITAMINS W/ FOLIC ACID TABLET (FP) PO SCH (10:01)
[2017-07-05] MEDS: BACLOFEN 10 MG TABLET (FP) PO SCH ×2 (10:02→21:26)
[2017-07-05] MEDS: HYDROCHLOROTHIAZIDE 25 MG TABLET (FP) PO SCH (10:02)
[2017-07-05] MEDS: risperiDONE 2 MG TABLET PO SCH (10:02)
[2017-07-05] MEDS: ASPIRIN COATED 81 MG TABLET.EC PO SCH (10:02)
[2017-07-05] MEDS: NICOTINE 14 MG/24 HOURS TOPICAL PATCH TD SCH (10:02)
[2017-07-05] MEDS: LIDOCAINE 5% TOPICAL PATCH TP SCH (10:02)
[2017-07-05] MEDS: OMEGA-3 ACID ETHYL ESTERS (FATTY-ACIDS) 1 GM CAPSULE (FP) PO SCH (10:02)
[2017-07-05] MEDS: NICOTINE POLACRILEX 2 MG GUM BUC PRN ×5 (10:05→21:28)
[2017-07-05] MEDS: ATENOLOL 50 MG TABLET (FP) PO SCH (10:11)
[2017-07-05] MEDS: THIAMINE HCL 100 MG TABLET (FP) PO SCH (21:26)
[2017-07-05] MEDS: ATORVASTATIN CA 20 MG TABLET (FP) PO SCH (21:26)
[2017-07-05] MEDS: IBUPROFEN 400 MG TABLET (FP) PO PRN (21:28)
[2017-07-06] MEDS: ARTIFICIAL TEARS (POLYVINYL ALCOHOL 1.4%) OPTH DROPS OU SCH ×3 (06:00→21:36)
[2017-07-06] MEDS: AMOXICILLIN 500 MG CAPSULE (FP) PO SCH ×3 (06:07→21:33)
[2017-07-06] MEDS: NICOTINE POLACRILEX 2 MG GUM BUC PRN ×5 (06:07→21:36)
[2017-07-06] MEDS: INSULIN SLIDING SCALE (NOVOLOG) 1 VIAL SQ SCH ×2 (07:00→16:52)
[2017-07-06] MEDS: metFORMIN HCL 500 MG TABLET (FP) PO SCH ×2 (07:00→16:50)
[2017-07-06] MEDS: ASPIRIN COATED 81 MG TABLET.EC PO SCH (09:54)
[2017-07-06] MEDS: risperiDONE 2 MG TABLET PO SCH (09:54)
[2017-07-06] MEDS: PRENATAL VITAMINS W/ FOLIC ACID TABLET (FP) PO SCH (09:54)
[2017-07-06] MEDS: OMEGA-3 ACID ETHYL ESTERS (FATTY-ACIDS) 1 GM CAPSULE (FP) PO SCH (09:54)
[2017-07-06] MEDS: BACLOFEN 10 MG TABLET (FP) PO SCH ×2 (09:55→21:33)
[2017-07-06] MEDS: HYDROCHLOROTHIAZIDE 25 MG TABLET (FP) PO SCH (09:55)
[2017-07-06] MEDS: LIDOCAINE 5% TOPICAL PATCH TP SCH (09:55)
[2017-07-06] MEDS: ATENOLOL 50 MG TABLET (FP) PO SCH (09:56)
[2017-07-06] MEDS: IBUPROFEN 400 MG TABLET (FP) PO PRN (09:57)
[2017-07-06] MEDS: CYCLOBENZAPRINE HCL 10 MG TABLET (FP) PO PRN (09:57)
[2017-07-06] MEDS: NICOTINE 14 MG/24 HOURS TOPICAL PATCH TD SCH (10:26)
[2017-07-06] MEDS: ATORVASTATIN CA 20 MG TABLET (FP) PO SCH (21:33)
[2017-07-06] MEDS: THIAMINE HCL 100 MG TABLET (FP) PO SCH (21:33)
[2017-07-06] MEDS ORDERED: PT OWN MED DRAWER 7, Y5N ONE (21:34)
[2017-07-07] MEDS: metFORMIN HCL 500 MG TABLET (FP) PO SCH ×2 (06:07→16:50)
[2017-07-07] MEDS: ARTIFICIAL TEARS (POLYVINYL ALCOHOL 1.4%) OPTH DROPS OU SCH ×3 (06:07→21:33)
[2017-07-07] MEDS: AMOXICILLIN 500 MG CAPSULE (FP) PO SCH ×3 (06:07→21:31)
[2017-07-07] MEDS: NICOTINE POLACRILEX 2 MG GUM BUC PRN ×5 (06:07→21:34)
[2017-07-07] MEDS: INSULIN SLIDING SCALE (NOVOLOG) 1 VIAL SQ SCH ×2 (06:09→16:51)
[2017-07-07] MEDS: PRENATAL VITAMINS W/ FOLIC ACID TABLET (FP) PO SCH (09:58)
[2017-07-07] MEDS: risperiDONE 2 MG TABLET PO SCH (09:58)
[2017-07-07] MEDS: BACLOFEN 10 MG TABLET (FP) PO SCH ×2 (09:58→21:31)
[2017-07-07] MEDS: CYCLOBENZAPRINE HCL 10 MG TABLET (FP) PO PRN (09:59)
[2017-07-07] MEDS: HYDROCHLOROTHIAZIDE 25 MG TABLET (FP) PO SCH (09:59)
[2017-07-07] MEDS: NICOTINE 14 MG/24 HOURS TOPICAL PATCH TD SCH (09:59)
[2017-07-07] MEDS: LIDOCAINE 5% TOPICAL PATCH TP SCH (09:59)
[2017-07-07] MEDS: ASPIRIN COATED 81 MG TABLET.EC PO SCH (09:59)
[2017-07-07] MEDS: OMEGA-3 ACID ETHYL ESTERS (FATTY-ACIDS) 1 GM CAPSULE (FP) PO SCH (09:59)
[2017-07-07] MEDS: IBUPROFEN 400 MG TABLET (FP) PO PRN ×2 (10:00→21:31)
[2017-07-07] MEDS: ATENOLOL 50 MG TABLET (FP) PO SCH (10:00)
[2017-07-07] MEDS ORDERED: PT OWN MED DRAWER 7, Y5N ONE ×2 (10:02→21:33)
[2017-07-07] MEDS: ATORVASTATIN CA 20 MG TABLET (FP) PO SCH (21:31)
[2017-07-07] MEDS: THIAMINE HCL 100 MG TABLET (FP) PO SCH (21:31)
[2017-07-08] MEDS: metFORMIN HCL 500 MG TABLET (FP) PO SCH ×2 (06:18→16:45)
[2017-07-08] MEDS: AMOXICILLIN 500 MG CAPSULE (FP) PO SCH ×3 (06:18→21:22)
[2017-07-08] MEDS: NICOTINE POLACRILEX 2 MG GUM BUC PRN ×6 (06:19→21:23)
[2017-07-08] MEDS: ARTIFICIAL TEARS (POLYVINYL ALCOHOL 1.4%) OPTH DROPS OU SCH ×3 (06:19→21:56)
[2017-07-08] MEDS: INSULIN SLIDING SCALE (NOVOLOG) 1 VIAL SQ SCH ×2 (06:36→16:50)
[2017-07-08] MEDS: OMEGA-3 ACID ETHYL ESTERS (FATTY-ACIDS) 1 GM CAPSULE (FP) PO SCH (10:00)
[2017-07-08] MEDS: LIDOCAINE 5% TOPICAL PATCH TP SCH (10:00)
[2017-07-08] MEDS: PRENATAL VITAMINS W/ FOLIC ACID TABLET (FP) PO SCH (10:00)
[2017-07-08] MEDS: ASPIRIN COATED 81 MG TABLET.EC PO SCH (10:00)
[2017-07-08] MEDS: risperiDONE 2 MG TABLET PO SCH (10:00)
[2017-07-08] MEDS: BACLOFEN 10 MG TABLET (FP) PO SCH ×2 (10:00→21:22)
[2017-07-08] MEDS: HYDROCHLOROTHIAZIDE 25 MG TABLET (FP) PO SCH (10:00)
[2017-07-08] MEDS: CYCLOBENZAPRINE HCL 10 MG TABLET (FP) PO PRN ×2 (10:01→21:22)
[2017-07-08] MEDS: IBUPROFEN 400 MG TABLET (FP) PO PRN ×2 (10:01→21:23)
[2017-07-08] MEDS: ATENOLOL 50 MG TABLET (FP) PO SCH (10:01)
[2017-07-08] MEDS: NICOTINE 14 MG/24 HOURS TOPICAL PATCH TD SCH (10:01)
[2017-07-08] MEDS: ATORVASTATIN CA 20 MG TABLET (FP) PO SCH (21:22)
[2017-07-08] MEDS: THIAMINE HCL 100 MG TABLET (FP) PO SCH (21:22)
[2017-07-09] MEDS: AMOXICILLIN 500 MG CAPSULE (FP) PO SCH (06:07)
[2017-07-09] MEDS: ARTIFICIAL TEARS (POLYVINYL ALCOHOL 1.4%) OPTH DROPS OU SCH ×3 (06:08→21:36)
[2017-07-09] MEDS: INSULIN SLIDING SCALE (NOVOLOG) 1 VIAL SQ SCH ×2 (06:08→16:54)
[2017-07-09] MEDS: metFORMIN HCL 500 MG TABLET (FP) PO SCH ×2 (06:08→16:52)
[2017-07-09] MEDS: NICOTINE POLACRILEX 2 MG GUM BUC PRN ×4 (06:09→16:54)
[2017-07-09] MEDS: ATENOLOL 50 MG TABLET (FP) PO SCH (10:08)
[2017-07-09] MEDS: ASPIRIN COATED 81 MG TABLET.EC PO SCH (10:08)
[2017-07-09] MEDS: PRENATAL VITAMINS W/ FOLIC ACID TABLET (FP) PO SCH (10:08)
[2017-07-09] MEDS: risperiDONE 2 MG TABLET PO SCH (10:08)
[2017-07-09] MEDS: BACLOFEN 10 MG TABLET (FP) PO SCH ×2 (10:08→21:37)
[2017-07-09] MEDS: OMEGA-3 ACID ETHYL ESTERS (FATTY-ACIDS) 1 GM CAPSULE (FP) PO SCH (10:08)
[2017-07-09] MEDS: LIDOCAINE 5% TOPICAL PATCH TP SCH (10:08)
[2017-07-09] MEDS: HYDROCHLOROTHIAZIDE 25 MG TABLET (FP) PO SCH (10:09)
[2017-07-09] MEDS: NICOTINE 14 MG/24 HOURS TOPICAL PATCH TD SCH (10:09)
[2017-07-09] MEDS: IBUPROFEN 400 MG TABLET (FP) PO PRN ×2 (10:10→21:37)
[2017-07-09] MEDS: CYCLOBENZAPRINE HCL 10 MG TABLET (FP) PO PRN ×2 (10:11→21:37)
[2017-07-09] MEDS ORDERED: PT OWN MED DRAWER 7, Y5N ONE (12:31)
[2017-07-09] MEDS: ATORVASTATIN CA 20 MG TABLET (FP) PO SCH (21:37)
[2017-07-09] MEDS: THIAMINE HCL 100 MG TABLET (FP) PO SCH (21:37)
[2017-07-10] MEDS: metFORMIN HCL 500 MG TABLET (FP) PO SCH ×2 (06:04→16:42)
[2017-07-10] MEDS: INSULIN SLIDING SCALE (NOVOLOG) 1 VIAL SQ SCH ×2 (06:05→16:42)
[2017-07-10] MEDS: NICOTINE POLACRILEX 2 MG GUM BUC PRN ×4 (06:05→21:44)
[2017-07-10] MEDS: ARTIFICIAL TEARS (POLYVINYL ALCOHOL 1.4%) OPTH DROPS OU SCH ×3 (06:05→22:10)
[2017-07-10] MEDS: BACLOFEN 10 MG TABLET (FP) PO SCH ×2 (10:12→21:41)
[2017-07-10] MEDS: ATENOLOL 50 MG TABLET (FP) PO SCH (10:12)
[2017-07-10] MEDS: HYDROCHLOROTHIAZIDE 25 MG TABLET (FP) PO SCH (10:12)
[2017-07-10] MEDS: risperiDONE 2 MG TABLET PO SCH (10:12)
[2017-07-10] MEDS: CYCLOBENZAPRINE HCL 10 MG TABLET (FP) PO PRN ×2 (10:12→21:43)
[2017-07-10] MEDS: PRENATAL VITAMINS W/ FOLIC ACID TABLET (FP) PO SCH (10:12)
[2017-07-10] MEDS: OMEGA-3 ACID ETHYL ESTERS (FATTY-ACIDS) 1 GM CAPSULE (FP) PO SCH (10:13)
[2017-07-10] MEDS: IBUPROFEN 400 MG TABLET (FP) PO PRN (10:13)
[2017-07-10] MEDS: LIDOCAINE 5% TOPICAL PATCH TP SCH (10:15)
[2017-07-10] MEDS: ASPIRIN COATED 81 MG TABLET.EC PO SCH (10:16)
[2017-07-10] MEDS: NICOTINE 14 MG/24 HOURS TOPICAL PATCH TD SCH (10:16)
--- NOTE | 2017-07-10 15:48 | PN ---
S Progress Note Note: 62 yo male with hx of spinal stenosis, gait abnormality ambulates with rolling walker, c/o of burning pain on the right upper thigh. Patient currently on ibupofen 400mg qh, baclofen, flexeril for pain. Denies any recent trauma. Vital Signs Temperature 98.3 F 07/10/17 06:57 Pulse Rate 67 07/10/17 10:00 Respiratory Rate 18 07/10/17 10:00 Blood Pressure 165/88 07/10/17 10:00 O2 Sat by Pulse Oximetry (%) Laboratory Last Values POC Glucometer 110 UNITS (80-120) 07/07/17 16:50 A/P Patient AOx3 in no apparent distress no adventicious breath sounds + back pain, +right thigh pain, + b/l knee pain ambultingin the unit with wlker skin intact , no erythema or edema - spinal stenosis Plan: increase ibuprofen to 600mg q8h bengay to right thigh Patient educated on the importance to follow up with ortho and PT upon discharge for continuety of care. Verbalize understanding.
[2017-07-10] MEDS: THIAMINE HCL 100 MG TABLET (FP) PO SCH (21:40)
[2017-07-10] MEDS: ATORVASTATIN CA 20 MG TABLET (FP) PO SCH (21:41)
[2017-07-10] MEDS: IBUPROFEN 600 MG TABLET (FP) PO PRN (21:42)
[2017-07-10] MEDS: METHYL SALICYLATE/MENTHOL OINT 30 GM TUBE TP SCH (22:10)
[2017-07-11] MEDS: metFORMIN HCL 500 MG TABLET (FP) PO SCH (05:59)
[2017-07-11] MEDS ORDERED: PT OWN MED DRAWER 7, Y5N ONE ×2 (06:00→09:51)
[2017-07-11] MEDS: ARTIFICIAL TEARS (POLYVINYL ALCOHOL 1.4%) OPTH DROPS OU SCH (06:01)
[2017-07-11 06:57] VITALS: TEMP 98
[2017-07-11] MEDS: INSULIN SLIDING SCALE (NOVOLOG) 1 VIAL SQ SCH (07:02)
[2017-07-11] MEDS: OMEGA-3 ACID ETHYL ESTERS (FATTY-ACIDS) 1 GM CAPSULE (FP) PO SCH (10:16)
[2017-07-11] MEDS: risperiDONE 2 MG TABLET PO SCH (10:16)
[2017-07-11] MEDS: BACLOFEN 10 MG TABLET (FP) PO SCH (10:16)
[2017-07-11] MEDS: PRENATAL VITAMINS W/ FOLIC ACID TABLET (FP) PO SCH (10:16)
[2017-07-11] MEDS: HYDROCHLOROTHIAZIDE 25 MG TABLET (FP) PO SCH (10:16)
[2017-07-11] MEDS: METHYL SALICYLATE/MENTHOL OINT 30 GM TUBE TP SCH (10:17)
[2017-07-11] MEDS: ATENOLOL 50 MG TABLET (FP) PO SCH (10:17)
[2017-07-11] MEDS: ASPIRIN COATED 81 MG TABLET.EC PO SCH (10:17)
[2017-07-11] MEDS: NICOTINE 14 MG/24 HOURS TOPICAL PATCH TD SCH (10:17)
[2017-07-11] MEDS: LIDOCAINE 5% TOPICAL PATCH TP SCH (10:17)
[2017-07-11 10:20] VITALS: BP 158/87; PULSE 73
[2017-07-11] MEDS: IBUPROFEN 600 MG TABLET (FP) PO PRN (10:20)
[2017-07-11] MEDS: CYCLOBENZAPRINE HCL 10 MG TABLET (FP) PO PRN (10:20)
--- NOTE | 2017-07-11 10:26 | PN ---
Psychiatric Progress Note Vital Signs: Vital Signs Period Temp Pulse Resp BP Sys/Rbian Pulse Ox Last 24 Hr 98 F 72-73 18-20 150-158/81-87 Date of Session: 07/11/17 Chief Complaint:: "Discharge" HPI: Patient admitted to [facility] for alcohol and cocaine dependence. ROS: Significant for hypertension, dyslipidemia, type 2 diabetes mellitus, spinal stenosis, lower back pain, history of prophylactic treatment for TB with INH (2004), arthritis at L3-L4 level, angina, history of right hip replacement for avascular necrosis (2003) and fracture right fibula in 1996. Smokes 10 cigarettes daily Current Medications: Active Medications Generic Name Dose Route Start Last Admin Trade Name Freq PRN Reason Stop Dose Admin Acetaminophen 650 mg 06/21/17 14:52 06/24/17 03:24 Tylenol - PO 650 mg Q4H PRN Administration FEVER Al Hydroxide/Mg Hydroxide 30 ml 06/21/17 14:52 Mylanta Oral Suspension - PO Q6H PRN DYSPEPSIA Artificial Tears 1 drop 06/24/17 14:00 07/11/17 06:01 Artificial Tears OU 1 drop TID ARLETH Administration Aspirin 81 mg 06/26/17 10:00 07/11/17 10:17 Ecotrin - PO 81 mg DAILY ARLETH Administration Atenolol 25 mg 06/26/17 10:00 07/11/17 10:17 Tenormin - PO 25 mg DAILY ARLETH Administration Atorvastatin Calcium 20 mg 06/21/17 22:00 07/10/17 21:41 Lipitor - PO 20 mg HS ARLETH Administration Baclofen 10 mg 06/22/17 22:00 07/11/17 10:16 Lioresal - PO 10 mg BID ARLETH Administration Benzocaine 1 applic 06/22/17 13:29 07/02/17 11:51 Anbesol - MM 1 applic Q2H PRN Administration ORAL PAIN/MOUTH SORES Bupropion HCl 300 mg 06/22/17 10:00 07/11/17 10:17 Wellbutrin Xl - PO 300 mg DAILY ARLETH Administration Cyclobenzaprine HCl 10 mg 06/22/17 13:21 07/11/17 10:20 Flexeril - PO 10 mg TID PRN Administration MUSCLE SPASMS Eucalyptus/Menthol/Phenol/Sorbitol 1 each 06/21/17 14:52 Cepastat Lozenge - MM Q4H PRN SORE THROAT Guaifenesin 10 ml 06/21/17 14:52 Robitussin Dm - PO Q6H PRN COUGH Hydrochlorothiazide 25 mg 06/22/17 10:00 07/11/17 10:16 Hctz - PO 25 mg DAILY ARLETH Administration Ibuprofen 600 mg 07/10/17 15:44 07/11/17 10:20 Motrin - PO 600 mg Q8H PRN Administration Pain Level 4-6 Insulin Aspart 1 vial 06/22/17 07:00 07/11/17 07:02 Novolog Vial Sliding Scale - SQ Not Given BIDAC [facility] Protocol Lidocaine 1 patch 06/22/17 10:00 07/11/17 10:17 Lidoderm Patch - TP 1 patch DAILY ARLETH Administration Loperamide HCl 4 mg 06/21/17 14:52 Imodium - PO Q6H PRN DIARRHEA Magnesium Citrate 300 ml 06/21/17 14:52 Citroma - PO Q48H PRN CONSTIPATION Magnesium Hydroxide 30 ml 06/21/17 14:52 Milk Of Magnesia - PO DAILY PRN CONSTIPATION Melatonin 5 mg 06/21/17 22:00 Melatonin PO HS PRN INSOMNIA Metformin HCl 500 mg 06/21/17 16:30 07/11/17 05:59 Glucophage - PO 500 mg BIDAC [facility] Administration Methyl Salicylate 1 applic 07/10/17 22:00 07/11/17 10:17 Robin-Yates - TP Not Given BID ARLETH Nicotine 14 mg 06/22/17 10:00 07/11/17 10:17 Nicoderm Patch - TD Not Given DAILY [facility] Nicotine Polacrilex 2 mg 06/21/17 14:52 07/10/17 21:44 Nicorette Gum - BUC 2 mg Q2H PRN Administration NICOTINE REPLACEMENT RX [id number] Ethyl Esters 1 gm 06/22/17 10:00 07/11/17 10:16 Lovaza - PO 1 gm DAILY ARLETH Administration Multivit/Folic Acid/Iron 1 tab 06/22/17 10:00 07/11/17 10:16 Vitamins (Sjr) - PO 1 tab DAILY ARLETH Administration Pseudoephedrine/Triprolidine 1 combo 06/21/17 14:52 Actifed - PO TID PRN NASAL CONGESTION Risperidone 2 mg 06/22/17 10:00 07/11/17 10:16 Risperdal - PO 2 mg DAILY [facility] Administration Thiamine HCl 100 mg 06/21/17 22:00 07/10/17 21:40 Vitamin B1 - PO 100 mg HS ARLETH Administration Medication(s) Change(s): No. Current Side Effect: No Lab tests ordered: No Lab tests reviewed: Yes Provider note:: Patient was able to complete 20 days of the inpatient rehabilitation program on [facility]. He has met his treatment goals and will continue to address his issues at the [facility] outpatient clinic. Patient is able to understand the consequences of his addiction and the need to make positive changes to his lifestyle in order to maintain abstinence. Patient reports having a 30 day supply of his current medication (Wellbutrin 300mg XL + Risperdal 2mg) and is refusing a prescription from designer writer. Pt. is stable for discharge on 07/11/17. Total face to face time:: 35 Mental Status Exam - Mental Status Exam Alert and Oriented to: Time, Place, Person Cognitive Function: Good Patient Appearance: Well Groomed Mood: Hopeful, Happy Affect: Mood Congruent Patient Behavior: Appropriate, Cooperative Speech Pattern: Clear, Appropriate Voice Loudness: Normal Thought Process: Intact, Goal Oriented Thought Disorder: Not Present Hallucinations: Denies Suicidal Ideation: Denies Homicidal Ideation: Denies Insight/Judgement: Good Sleep: Well Appetite: Good Muscle strength/Tone: Normal Gait/Station: Other (Ambulates with a rollator walker.) Psychiatric Treatment Plan - Problem List (1) Alcohol dependence Current Visit: Yes (2) Cocaine dependence Current Visit: Yes (3) Nicotine dependence Current Visit: Yes Qualifiers: Nicotine product type: cigarettes Substance use status: in withdrawal Qualified Code(s): F17.213 - Nicotine dependence, cigarettes, with withdrawal (4) Schizoaffective disorder Current Visit: Yes Qualifiers: Schizoaffective disorder type: depressive Qualified Code(s): F25.1 - Schizoaffective disorder, depressive type Comment: History. Compliant with medication.
== END 2017-07-11 10:55 | disposition home or self-care (01) | DRG 772 ==
LOC: YASAS 12:59 → Y3W 13:00
PROVIDERS: ADMIT Psychiatry & Neurology Psychiatry; ATTEND Psychiatry & Neurology Psychiatry
PROC: HZ42ZZZ Group Counseling for Substance Abuse Treatment, Cognitive-Behavioral (ICD-10-PCS; principal; 2017-06-21)
DX: F10.20 Alcohol dependence, uncomplicated (principal); F14.20 Cocaine dependence, uncomplicated; F17.213 Nicotine dependence, cigarettes, with withdrawal; F25.1 Schizoaffective disorder, depressive type; I10 Essential (primary) hypertension; E11.9 Type 2 diabetes mellitus without complications; Z79.4 Long term (current) use of insulin; M19.90 Unspecified osteoarthritis, unspecified site; M48.07 Spinal stenosis, lumbosacral region; K06.8 Other specified disorders of gingiva and edentulous alveolar ridge; Z99.89 Dependence on other enabling machines and devices; Z88.8 Allergy status to other drugs, medicaments and biological substances
CPT/HCPCS: 82962; 90732; G0009; J0475

== ENCOUNTER 2017-08-10 15:35 | Inpatient (IN) | payer OTHER ==
[2017-08-10] MEDS ORDERED: LOPERAMIDE HCL 2 MG CAPSULE PO PRN (16:20)
[2017-08-10] MEDS ORDERED: MENTHOL/PHENOL 1 EACH UD MM PRN (16:20)
[2017-08-10] MEDS ORDERED: P-EPHED 60MG/TRIPROLIDI 2.5MG TABLET PO PRN (16:20)
[2017-08-10] MEDS ORDERED: guaiFENesin/D-METHORPHAN HB 10 ML UNIT-DOSE CUPS PO PRN (16:20)
[2017-08-10] MEDS ORDERED: ACETAMINOPHEN 325 MG TABLET (FP) PO PRN (16:20)
[2017-08-10] MEDS ORDERED: COLLOIDAL OATMEAL 1 BAR EACH TP PRN (16:23)
--- NOTE | 2017-08-10 16:27 | HP ---
[facility] Rehab Assess/Revision - Admission History Admitted to Rehab from: [facility] Date of Admission to Rehab: 08/10/2017 - Vital signs Vital Signs: NOTED; STABLE. - Findings Detox History & Physical reviewed: Yes Concur with findings: Yes Comments/Additional Findings: PATIENT'S MEDICAL / MEDICATION HISTORY REVIEWED PRIOR TO DISCHARGE FROM DETOX UNIT. PATIENT WAS DISCHARGED FROM DETOX UNIT TO BE TAKEN TO REHAB UNIT IN STABLE MEDICAL CONDITION. Inpatient Rehab Admission - Initial Determination Are CD services needed?: Yes Free of communicable disease: Yes Not in need of hospitalization: Yes - Rehab Admission Criteria Previous failed treatment: Yes Comorbidities: Yes Patient is meeting Inpatient Rehab admission criteria:: Yes
[2017-08-10] MEDS: NICOTINE POLACRILEX 2 MG GUM BUC PRN ×2 (17:56→21:18)
--- NOTE | 2017-08-10 18:04 | PN ---
S Progress Note Note: Psychiatric nurse practitioner note: Called received by RN requesting patient's psychotropic medications. Chart reviewed. Wellbutrin 300mg XL + Risperdal 2mg PO daily ordered.
[2017-08-10] MEDS: BACLOFEN 10 MG TABLET (FP) PO SCH (21:17)
[2017-08-10] MEDS: ATORVASTATIN CA 20 MG TABLET (FP) PO SCH (21:17)
[2017-08-10] MEDS: THIAMINE HCL 100 MG TABLET (FP) PO SCH (21:17)
[2017-08-10] MEDS ORDERED: MELATONIN 5 MG TABLETS PO PRN (22:00)
[2017-08-11] MEDS: metFORMIN HCL 500 MG TABLET (FP) PO SCH ×2 (06:25→16:46)
[2017-08-11] MEDS: NICOTINE POLACRILEX 2 MG GUM BUC PRN ×6 (06:27→21:35)
[2017-08-11] MEDS: HYDROCHLOROTHIAZIDE 25 MG TABLET (FP) PO SCH (09:51)
[2017-08-11] MEDS: risperiDONE 2 MG TABLET PO SCH (09:51)
[2017-08-11] MEDS: LIDOCAINE 5% TOPICAL PATCH TP SCH (09:51)
[2017-08-11] MEDS: ASPIRIN COATED 81 MG TABLET.EC PO SCH (09:51)
[2017-08-11] MEDS: BACLOFEN 10 MG TABLET (FP) PO SCH ×2 (09:51→21:33)
[2017-08-11] MEDS: OMEGA-3 ACID ETHYL ESTERS (FATTY-ACIDS) 1 GM CAPSULE (FP) PO SCH (09:51)
[2017-08-11] MEDS: amLODIPine BESYLATE 10 MG TABLET (FP) PO SCH (09:51)
[2017-08-11] MEDS: NICOTINE 14 MG/24 HOURS TOPICAL PATCH TD SCH (09:51)
[2017-08-11] MEDS: ATENOLOL 50 MG TABLET (FP) PO SCH (09:52)
[2017-08-11] MEDS: PRENATAL VITAMINS W/ FOLIC ACID TABLET (FP) PO SCH (09:52)
[2017-08-11] MEDS: ATORVASTATIN CA 20 MG TABLET (FP) PO SCH (21:33)
[2017-08-11] MEDS: THIAMINE HCL 100 MG TABLET (FP) PO SCH (21:33)
[2017-08-11] MEDS: IBUPROFEN 400 MG TABLET (FP) PO PRN (21:34)
[2017-08-12] MEDS: metFORMIN HCL 500 MG TABLET (FP) PO SCH ×2 (05:59→16:29)
[2017-08-12] MEDS: NICOTINE POLACRILEX 2 MG GUM BUC PRN ×6 (06:00→21:25)
[2017-08-12] MEDS: OMEGA-3 ACID ETHYL ESTERS (FATTY-ACIDS) 1 GM CAPSULE (FP) PO SCH (10:12)
[2017-08-12] MEDS: BACLOFEN 10 MG TABLET (FP) PO SCH ×2 (10:12→21:23)
[2017-08-12] MEDS: ATENOLOL 50 MG TABLET (FP) PO SCH (10:12)
[2017-08-12] MEDS: LIDOCAINE 5% TOPICAL PATCH TP SCH (10:12)
[2017-08-12] MEDS: HYDROCHLOROTHIAZIDE 25 MG TABLET (FP) PO SCH (10:12)
[2017-08-12] MEDS: ASPIRIN COATED 81 MG TABLET.EC PO SCH (10:12)
[2017-08-12] MEDS: amLODIPine BESYLATE 10 MG TABLET (FP) PO SCH (10:12)
[2017-08-12] MEDS: risperiDONE 2 MG TABLET PO SCH (10:12)
[2017-08-12] MEDS: PRENATAL VITAMINS W/ FOLIC ACID TABLET (FP) PO SCH (10:12)
[2017-08-12] MEDS: IBUPROFEN 400 MG TABLET (FP) PO PRN (10:14)
[2017-08-12] MEDS: NICOTINE 14 MG/24 HOURS TOPICAL PATCH TD SCH (10:14)
[2017-08-12] MEDS: THIAMINE HCL 100 MG TABLET (FP) PO SCH (21:23)
[2017-08-12] MEDS: ATORVASTATIN CA 20 MG TABLET (FP) PO SCH (21:23)
[2017-08-13] MEDS: NICOTINE POLACRILEX 2 MG GUM BUC PRN ×4 (06:02→17:08)
--- NOTE | 2017-08-13 07:40 | HP ---
Psychiatrist Admission - Data Date of interview: 08/13/17 Admission source: 3N Identifying data: This is one of the multiple [facility] admissions for this 62 years old single Black male, unemployed on public assistance, domiciled Medical History: Significant for hypertension, dyslipidemia, type 2 diabetes mellitus, spinal stenosis, lower back pain, history of prophylactic treatment for TB with INH (2004), arthritis at L3-L4 level, angina, history of right hip replacement for avascular necrosis (2003) and fracture right fibula in 1996. Smokes 10 cigarettes daily Psychiatric History: Reports onset of psychiatric disturbances in 2003 when he was admitted to [facility] and diagnosed with Schizoaffective Disorder. Reports multiple psychiatric admissions to various institutions including to [facility], [facility], [facility] and most recently from [facility] from June-July 2017. Mr Noonan is still receiving outpatient psychiatric services at the [facility] clinic (under the care of Dr Yao) in the [place]. He is prescibed Risperdal 2mg po daily and Wellbutrin XL 300 mg po daily.Patient admits to sub-optimal adherence to his medications. Report of history of several suicide attempts, most recently in January 2017,via deliberate self exposure to oncoming traffic. At present, reports feeling and sleeping well. Denies experincing psychotic, manic or depressive symptoms, S/H idetions Physical/Sexual Abuse/Trauma History: Patient denies history of emotional, sexual or physical abuse as well as DV relationship. 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 Served in [employer], [facility] [employer] and [place] in the . No report of flashbacks or nightmares. Additional Comment: Reports history of multiple previous arrests including 3 felony convictions. Reports being off parole for 8 years Vital Signs: Vital Signs - 24 hr 08/12/17 08/13/17 08/13/17 09:23 00:30 03:30 Temperature Pulse Rate 76 Respiratory 18 18 Rate Blood Pressure 149/75 08/13/17 07:03 Temperature 97.9 F Pulse Rate 79 Respiratory 18 Rate Blood Pressure 148/81 Allergies/Adverse Reactions: Allergies Allergy/AdvReac Type Severity Reaction Status Date / Time enalapril [Enalapril] Allergy Swelling Verified 06/18/17 21:48 haloperidol [From Haldol] Allergy Verified 06/18/17 21:48 haloperidol lactate Allergy Verified 06/18/17 21:48 [From Haldol] levofloxacin [From Levaquin] Allergy Hives Verified 06/18/17 21:48 ,Enalapril, Haldol, Levaquin Allergy Severe Hives Uncoded 06/18/17 21:48 Date of last physical exam: 08/10/17 Concur with the findings of this exam: Yes - Substance Abuse/Tx History Hx Alcohol Use: Yes Hx Substance Use: Yes Substance Use Type: Alcohol (Started drinking alcohol at age 15, consumes one pint of vodka daily. Last drank on 08/04/17), Cocaine (Started using cocaine at age 20, consumes $25 worth daily. Last Used on 08/05/17) Hx Substance Use Treatment: Yes (7 previous inpt detox & 5 inpt rehab admissions @ [facility]) Mental Status Exam - Mental Status Exam Alert and Oriented to: Time, Place, Person Cognitive Function: Fair Patient Appearance: Well Groomed Mood: Hopeful, Euthymic Patient Behavior: Cooperative Speech Pattern: Clear Voice Loudness: Normal Thought Process: Intact, Goal Oriented Thought Disorder: Not Present Hallucinations: Denies Suicidal Ideation: Denies Homicidal Ideation: Denies Insight/Judgement: Fair Sleep: Well Appetite: Good Muscle strength/Tone: Normal Gait/Station: Normal Psychiatric Findings - Problem List ([place] 1, 2,3) (1) Alcohol dependence Current Visit: No Status: Acute (2) Cocaine dependence Current Visit: No Status: Acute Qualifiers: Substance use status: uncomplicated Qualified Code(s): F14.20 - Cocaine dependence, uncomplicated (3) Nicotine dependence Current Visit: No Status: Chronic Qualifiers: Nicotine product type: cigarettes Substance use status: in withdrawal Qualified Code(s): F17.213 - Nicotine dependence, cigarettes, with withdrawal (4) Schizoaffective disorder Current Visit: No Status: Chronic Qualifiers: Schizoaffective disorder type: depressive Qualified Code(s): F25.1 - Schizoaffective disorder, depressive type Comment: History. Compliant with medication. (5) Arthritis Current Visit: No Status: Chronic (6) Diabetes mellitus Current Visit: No Status: Chronic Qualifiers: Diabetes mellitus type: type 2 Diabetes mellitus care home insulin use: without care home use Diabetes mellitus complication status: with unspecified complications Qualified Code(s): E11.8 - Type 2 diabetes mellitus with unspecified complications (7) History of positive PPD Current Visit: No Status: Chronic (8) Hypercholesteremia Current Visit: No Status: Chronic (9) Hypertension Current Visit: No Status: Chronic Qualifiers: Hypertension type: essential hypertension Qualified Code(s): I10 - Essential (primary) hypertension (10) Spinal stenosis, lumbosacral region Current Visit: No Status: Chronic - Initial Treatment Plan Initial Treatment Plan: 1) Continue Risperdal 2 mg po daily and Wellbutrin XL 300 mg po daily. 2) Monitor progress
[2017-08-13] MEDS: metFORMIN HCL 500 MG TABLET (FP) PO SCH ×2 (07:42→17:06)
[2017-08-13] MEDS: LIDOCAINE 5% TOPICAL PATCH TP SCH (10:38)
[2017-08-13] MEDS: BACLOFEN 10 MG TABLET (FP) PO SCH ×2 (10:38→21:29)
[2017-08-13] MEDS: ASPIRIN COATED 81 MG TABLET.EC PO SCH (10:38)
[2017-08-13] MEDS: OMEGA-3 ACID ETHYL ESTERS (FATTY-ACIDS) 1 GM CAPSULE (FP) PO SCH (10:38)
[2017-08-13] MEDS: HYDROCHLOROTHIAZIDE 25 MG TABLET (FP) PO SCH (10:38)
[2017-08-13] MEDS: PRENATAL VITAMINS W/ FOLIC ACID TABLET (FP) PO SCH (10:39)
[2017-08-13] MEDS: risperiDONE 2 MG TABLET PO SCH (10:39)
[2017-08-13] MEDS: amLODIPine BESYLATE 10 MG TABLET (FP) PO SCH (10:39)
[2017-08-13] MEDS: ATENOLOL 50 MG TABLET (FP) PO SCH (10:39)
[2017-08-13] MEDS: NICOTINE 14 MG/24 HOURS TOPICAL PATCH TD SCH (10:39)
[2017-08-13] MEDS: IBUPROFEN 400 MG TABLET (FP) PO PRN ×2 (10:41→21:29)
[2017-08-13] MEDS: THIAMINE HCL 100 MG TABLET (FP) PO SCH (21:29)
[2017-08-13] MEDS: ATORVASTATIN CA 20 MG TABLET (FP) PO SCH (21:29)
[2017-08-14] MEDS: NICOTINE POLACRILEX 2 MG GUM BUC PRN ×4 (06:04→21:27)
[2017-08-14] MEDS: metFORMIN HCL 500 MG TABLET (FP) PO SCH ×2 (07:01→16:36)
[2017-08-14] MEDS: OMEGA-3 ACID ETHYL ESTERS (FATTY-ACIDS) 1 GM CAPSULE (FP) PO SCH (10:29)
[2017-08-14] MEDS: BACLOFEN 10 MG TABLET (FP) PO SCH ×2 (10:29→21:25)
[2017-08-14] MEDS: PRENATAL VITAMINS W/ FOLIC ACID TABLET (FP) PO SCH (10:29)
[2017-08-14] MEDS: risperiDONE 2 MG TABLET PO SCH (10:29)
[2017-08-14] MEDS: amLODIPine BESYLATE 10 MG TABLET (FP) PO SCH (10:29)
[2017-08-14] MEDS: IBUPROFEN 400 MG TABLET (FP) PO PRN (10:30)
[2017-08-14] MEDS: ATENOLOL 50 MG TABLET (FP) PO SCH (10:30)
[2017-08-14] MEDS: ASPIRIN COATED 81 MG TABLET.EC PO SCH (10:30)
[2017-08-14] MEDS: HYDROCHLOROTHIAZIDE 25 MG TABLET (FP) PO SCH (10:30)
[2017-08-14] MEDS: LIDOCAINE 5% TOPICAL PATCH TP SCH (10:30)
[2017-08-14] MEDS: NICOTINE 14 MG/24 HOURS TOPICAL PATCH TD SCH (10:31)
[2017-08-14] MEDS: ATORVASTATIN CA 20 MG TABLET (FP) PO SCH (21:25)
[2017-08-14] MEDS: THIAMINE HCL 100 MG TABLET (FP) PO SCH (21:25)
[2017-08-15] MEDS: NICOTINE POLACRILEX 2 MG GUM BUC PRN ×5 (06:02→21:53)
[2017-08-15] MEDS: metFORMIN HCL 500 MG TABLET (FP) PO SCH ×2 (07:32→16:47)
[2017-08-15] MEDS: HYDROCHLOROTHIAZIDE 25 MG TABLET (FP) PO SCH (10:01)
[2017-08-15] MEDS: IBUPROFEN 400 MG TABLET (FP) PO PRN (10:01)
[2017-08-15] MEDS: amLODIPine BESYLATE 10 MG TABLET (FP) PO SCH (10:01)
[2017-08-15] MEDS: risperiDONE 2 MG TABLET PO SCH (10:01)
[2017-08-15] MEDS: BACLOFEN 10 MG TABLET (FP) PO SCH ×2 (10:01→21:52)
[2017-08-15] MEDS: ASPIRIN COATED 81 MG TABLET.EC PO SCH (10:01)
[2017-08-15] MEDS: LIDOCAINE 5% TOPICAL PATCH TP SCH (10:02)
[2017-08-15] MEDS: PRENATAL VITAMINS W/ FOLIC ACID TABLET (FP) PO SCH (10:02)
[2017-08-15] MEDS: ATENOLOL 50 MG TABLET (FP) PO SCH (10:02)
[2017-08-15] MEDS: OMEGA-3 ACID ETHYL ESTERS (FATTY-ACIDS) 1 GM CAPSULE (FP) PO SCH (10:02)
[2017-08-15] MEDS: NICOTINE 14 MG/24 HOURS TOPICAL PATCH TD SCH (10:28)
[2017-08-15] MEDS: ATORVASTATIN CA 20 MG TABLET (FP) PO SCH (21:52)
[2017-08-15] MEDS: THIAMINE HCL 100 MG TABLET (FP) PO SCH (21:52)
[2017-08-16] MEDS: metFORMIN HCL 500 MG TABLET (FP) PO SCH ×2 (06:06→17:02)
[2017-08-16] MEDS: NICOTINE POLACRILEX 2 MG GUM BUC PRN ×5 (06:07→19:17)
[2017-08-16] MEDS: ATENOLOL 50 MG TABLET (FP) PO SCH (10:03)
[2017-08-16] MEDS: BACLOFEN 10 MG TABLET (FP) PO SCH ×2 (10:03→21:45)
[2017-08-16] MEDS: HYDROCHLOROTHIAZIDE 25 MG TABLET (FP) PO SCH (10:03)
[2017-08-16] MEDS: OMEGA-3 ACID ETHYL ESTERS (FATTY-ACIDS) 1 GM CAPSULE (FP) PO SCH (10:03)
[2017-08-16] MEDS: NICOTINE 14 MG/24 HOURS TOPICAL PATCH TD SCH (10:04)
[2017-08-16] MEDS: ASPIRIN COATED 81 MG TABLET.EC PO SCH (10:04)
[2017-08-16] MEDS: LIDOCAINE 5% TOPICAL PATCH TP SCH (10:04)
[2017-08-16] MEDS: risperiDONE 2 MG TABLET PO SCH (10:04)
[2017-08-16] MEDS: amLODIPine BESYLATE 10 MG TABLET (FP) PO SCH (10:04)
[2017-08-16] MEDS: PRENATAL VITAMINS W/ FOLIC ACID TABLET (FP) PO SCH (10:04)
[2017-08-16] MEDS: IBUPROFEN 400 MG TABLET (FP) PO PRN (10:05)
[2017-08-16] MEDS: THIAMINE HCL 100 MG TABLET (FP) PO SCH (21:44)
[2017-08-16] MEDS: ATORVASTATIN CA 20 MG TABLET (FP) PO SCH (21:45)
[2017-08-17] MEDS: metFORMIN HCL 500 MG TABLET (FP) PO SCH ×2 (06:07→17:03)
[2017-08-17] MEDS: NICOTINE POLACRILEX 2 MG GUM BUC PRN ×4 (06:09→22:11)
[2017-08-17] MEDS ORDERED: PT OWN MED DRAWER 7, Y5N ONE (09:13)
[2017-08-17] MEDS: LIDOCAINE 5% TOPICAL PATCH TP SCH (10:03)
[2017-08-17] MEDS: OMEGA-3 ACID ETHYL ESTERS (FATTY-ACIDS) 1 GM CAPSULE (FP) PO SCH (10:04)
[2017-08-17] MEDS: PRENATAL VITAMINS W/ FOLIC ACID TABLET (FP) PO SCH (10:04)
[2017-08-17] MEDS: ASPIRIN COATED 81 MG TABLET.EC PO SCH (10:04)
[2017-08-17] MEDS: HYDROCHLOROTHIAZIDE 25 MG TABLET (FP) PO SCH (10:05)
[2017-08-17] MEDS: ATENOLOL 50 MG TABLET (FP) PO SCH (10:05)
[2017-08-17] MEDS: BACLOFEN 10 MG TABLET (FP) PO SCH ×2 (10:06→22:11)
[2017-08-17] MEDS: amLODIPine BESYLATE 10 MG TABLET (FP) PO SCH (10:06)
[2017-08-17] MEDS: risperiDONE 2 MG TABLET PO SCH (10:06)
[2017-08-17] MEDS: NICOTINE 14 MG/24 HOURS TOPICAL PATCH TD SCH (10:10)
[2017-08-17] MEDS: IBUPROFEN 400 MG TABLET (FP) PO PRN ×2 (14:02→22:10)
[2017-08-17] MEDS: THIAMINE HCL 100 MG TABLET (FP) PO SCH (22:10)
[2017-08-17] MEDS: ATORVASTATIN CA 20 MG TABLET (FP) PO SCH (22:11)
[2017-08-18] MEDS: NICOTINE POLACRILEX 2 MG GUM BUC PRN ×4 (05:54→20:12)
[2017-08-18] MEDS: metFORMIN HCL 500 MG TABLET (FP) PO SCH ×2 (07:10→16:49)
[2017-08-18] MEDS: IBUPROFEN 400 MG TABLET (FP) PO PRN ×2 (09:59→21:55)
[2017-08-18] MEDS: OMEGA-3 ACID ETHYL ESTERS (FATTY-ACIDS) 1 GM CAPSULE (FP) PO SCH (09:59)
[2017-08-18] MEDS: BACLOFEN 10 MG TABLET (FP) PO SCH ×2 (09:59→21:56)
[2017-08-18] MEDS: PRENATAL VITAMINS W/ FOLIC ACID TABLET (FP) PO SCH (09:59)
[2017-08-18] MEDS: risperiDONE 2 MG TABLET PO SCH (09:59)
[2017-08-18] MEDS: HYDROCHLOROTHIAZIDE 25 MG TABLET (FP) PO SCH (10:00)
[2017-08-18] MEDS: NICOTINE 14 MG/24 HOURS TOPICAL PATCH TD SCH (10:00)
[2017-08-18] MEDS: LIDOCAINE 5% TOPICAL PATCH TP SCH (10:00)
[2017-08-18] MEDS: ASPIRIN COATED 81 MG TABLET.EC PO SCH (10:00)
[2017-08-18] MEDS: ATENOLOL 50 MG TABLET (FP) PO SCH (10:00)
[2017-08-18] MEDS: amLODIPine BESYLATE 10 MG TABLET (FP) PO SCH (10:00)
[2017-08-18] MEDS: THIAMINE HCL 100 MG TABLET (FP) PO SCH (21:55)
[2017-08-18] MEDS: ATORVASTATIN CA 20 MG TABLET (FP) PO SCH (21:56)
[2017-08-19] MEDS: NICOTINE POLACRILEX 2 MG GUM BUC PRN ×5 (06:13→22:01)
[2017-08-19] MEDS: metFORMIN HCL 500 MG TABLET (FP) PO SCH ×2 (07:14→17:00)
[2017-08-19] MEDS: ASPIRIN COATED 81 MG TABLET.EC PO SCH (10:07)
[2017-08-19] MEDS: BACLOFEN 10 MG TABLET (FP) PO SCH ×2 (10:07→22:00)
[2017-08-19] MEDS: IBUPROFEN 400 MG TABLET (FP) PO PRN ×2 (10:07→21:59)
[2017-08-19] MEDS: ATENOLOL 50 MG TABLET (FP) PO SCH (10:08)
[2017-08-19] MEDS: LIDOCAINE 5% TOPICAL PATCH TP SCH (10:08)
[2017-08-19] MEDS: amLODIPine BESYLATE 10 MG TABLET (FP) PO SCH (10:08)
[2017-08-19] MEDS: HYDROCHLOROTHIAZIDE 25 MG TABLET (FP) PO SCH (10:08)
[2017-08-19] MEDS: PRENATAL VITAMINS W/ FOLIC ACID TABLET (FP) PO SCH (10:08)
[2017-08-19] MEDS: OMEGA-3 ACID ETHYL ESTERS (FATTY-ACIDS) 1 GM CAPSULE (FP) PO SCH (10:08)
[2017-08-19] MEDS: NICOTINE 14 MG/24 HOURS TOPICAL PATCH TD SCH (10:09)
[2017-08-19] MEDS: risperiDONE 2 MG TABLET PO SCH (10:09)
[2017-08-19] MEDS: THIAMINE HCL 100 MG TABLET (FP) PO SCH (21:59)
[2017-08-19] MEDS: ATORVASTATIN CA 20 MG TABLET (FP) PO SCH (22:00)
[2017-08-20] MEDS: metFORMIN HCL 500 MG TABLET (FP) PO SCH ×2 (06:08→16:42)
[2017-08-20] MEDS: ASPIRIN COATED 81 MG TABLET.EC PO SCH (10:12)
[2017-08-20] MEDS: PRENATAL VITAMINS W/ FOLIC ACID TABLET (FP) PO SCH (10:12)
[2017-08-20] MEDS: amLODIPine BESYLATE 10 MG TABLET (FP) PO SCH (10:12)
[2017-08-20] MEDS: risperiDONE 2 MG TABLET PO SCH (10:12)
[2017-08-20] MEDS: OMEGA-3 ACID ETHYL ESTERS (FATTY-ACIDS) 1 GM CAPSULE (FP) PO SCH (10:12)
[2017-08-20] MEDS: BACLOFEN 10 MG TABLET (FP) PO SCH ×2 (10:12→21:56)
[2017-08-20] MEDS: HYDROCHLOROTHIAZIDE 25 MG TABLET (FP) PO SCH (10:12)
[2017-08-20] MEDS: ATENOLOL 50 MG TABLET (FP) PO SCH (10:12)
[2017-08-20] MEDS: LIDOCAINE 5% TOPICAL PATCH TP SCH (10:13)
[2017-08-20] MEDS: NICOTINE POLACRILEX 2 MG GUM BUC PRN ×5 (10:15→21:56)
[2017-08-20] MEDS: NICOTINE 14 MG/24 HOURS TOPICAL PATCH TD SCH (10:42)
[2017-08-20] MEDS: IBUPROFEN 400 MG TABLET (FP) PO PRN (16:43)
[2017-08-20] MEDS: ATORVASTATIN CA 20 MG TABLET (FP) PO SCH (21:56)
[2017-08-20] MEDS: THIAMINE HCL 100 MG TABLET (FP) PO SCH (21:56)
[2017-08-21] MEDS: NICOTINE POLACRILEX 2 MG GUM BUC PRN ×6 (06:11→22:35)
[2017-08-21] MEDS: metFORMIN HCL 500 MG TABLET (FP) PO SCH ×2 (07:08→16:50)
[2017-08-21] MEDS: LIDOCAINE 5% TOPICAL PATCH TP SCH (10:01)
[2017-08-21] MEDS: PRENATAL VITAMINS W/ FOLIC ACID TABLET (FP) PO SCH (10:01)
[2017-08-21] MEDS: risperiDONE 2 MG TABLET PO SCH (10:02)
[2017-08-21] MEDS: ASPIRIN COATED 81 MG TABLET.EC PO SCH (10:02)
[2017-08-21] MEDS: amLODIPine BESYLATE 10 MG TABLET (FP) PO SCH (10:02)
[2017-08-21] MEDS: BACLOFEN 10 MG TABLET (FP) PO SCH ×2 (10:02→22:27)
[2017-08-21] MEDS: NICOTINE 14 MG/24 HOURS TOPICAL PATCH TD SCH (10:02)
[2017-08-21] MEDS: HYDROCHLOROTHIAZIDE 25 MG TABLET (FP) PO SCH (10:02)
[2017-08-21] MEDS: ATENOLOL 50 MG TABLET (FP) PO SCH (10:02)
[2017-08-21] MEDS: OMEGA-3 ACID ETHYL ESTERS (FATTY-ACIDS) 1 GM CAPSULE (FP) PO SCH (10:02)
[2017-08-21] MEDS: THIAMINE HCL 100 MG TABLET (FP) PO SCH (22:27)
[2017-08-21] MEDS: ATORVASTATIN CA 20 MG TABLET (FP) PO SCH (22:27)
[2017-08-22] MEDS: NICOTINE POLACRILEX 2 MG GUM BUC PRN ×6 (06:01→21:43)
[2017-08-22] MEDS: metFORMIN HCL 500 MG TABLET (FP) PO SCH ×2 (07:12→16:45)
[2017-08-22] MEDS: OMEGA-3 ACID ETHYL ESTERS (FATTY-ACIDS) 1 GM CAPSULE (FP) PO SCH (10:08)
[2017-08-22] MEDS: ATENOLOL 50 MG TABLET (FP) PO SCH (10:09)
[2017-08-22] MEDS: BACLOFEN 10 MG TABLET (FP) PO SCH ×2 (10:10→21:43)
[2017-08-22] MEDS: LIDOCAINE 5% TOPICAL PATCH TP SCH (10:10)
[2017-08-22] MEDS: ASPIRIN COATED 81 MG TABLET.EC PO SCH (10:10)
[2017-08-22] MEDS: HYDROCHLOROTHIAZIDE 25 MG TABLET (FP) PO SCH (10:10)
[2017-08-22] MEDS: amLODIPine BESYLATE 10 MG TABLET (FP) PO SCH (10:10)
[2017-08-22] MEDS: PRENATAL VITAMINS W/ FOLIC ACID TABLET (FP) PO SCH (10:10)
[2017-08-22] MEDS: NICOTINE 14 MG/24 HOURS TOPICAL PATCH TD SCH (10:11)
[2017-08-22] MEDS: risperiDONE 2 MG TABLET PO SCH (10:11)
[2017-08-22] MEDS: IBUPROFEN 400 MG TABLET (FP) PO PRN (10:12)
[2017-08-22] MEDS: THIAMINE HCL 100 MG TABLET (FP) PO SCH (21:43)
[2017-08-22] MEDS: ATORVASTATIN CA 20 MG TABLET (FP) PO SCH (21:43)
[2017-08-23] MEDS: NICOTINE POLACRILEX 2 MG GUM BUC PRN ×4 (05:59→19:59)
[2017-08-23] MEDS: metFORMIN HCL 500 MG TABLET (FP) PO SCH ×2 (07:04→16:43)
[2017-08-23] MEDS: PRENATAL VITAMINS W/ FOLIC ACID TABLET (FP) PO SCH (09:53)
[2017-08-23] MEDS: amLODIPine BESYLATE 10 MG TABLET (FP) PO SCH (09:54)
[2017-08-23] MEDS: OMEGA-3 ACID ETHYL ESTERS (FATTY-ACIDS) 1 GM CAPSULE (FP) PO SCH (09:54)
[2017-08-23] MEDS: ASPIRIN COATED 81 MG TABLET.EC PO SCH (09:54)
[2017-08-23] MEDS: NICOTINE 14 MG/24 HOURS TOPICAL PATCH TD SCH (09:54)
[2017-08-23] MEDS: risperiDONE 2 MG TABLET PO SCH (09:54)
[2017-08-23] MEDS: LIDOCAINE 5% TOPICAL PATCH TP SCH (09:54)
[2017-08-23] MEDS: BACLOFEN 10 MG TABLET (FP) PO SCH ×2 (09:54→21:31)
[2017-08-23] MEDS: HYDROCHLOROTHIAZIDE 25 MG TABLET (FP) PO SCH (09:54)
[2017-08-23] MEDS: ATENOLOL 50 MG TABLET (FP) PO SCH (09:55)
[2017-08-23] MEDS: IBUPROFEN 400 MG TABLET (FP) PO PRN (14:09)
[2017-08-23] MEDS: THIAMINE HCL 100 MG TABLET (FP) PO SCH (21:31)
[2017-08-23] MEDS: ATORVASTATIN CA 20 MG TABLET (FP) PO SCH (21:32)
[2017-08-24] MEDS: NICOTINE POLACRILEX 2 MG GUM BUC PRN ×5 (05:54→19:12)
[2017-08-24] MEDS: metFORMIN HCL 500 MG TABLET (FP) PO SCH ×2 (07:18→16:41)
[2017-08-24] MEDS: risperiDONE 2 MG TABLET PO SCH (09:57)
[2017-08-24] MEDS: amLODIPine BESYLATE 10 MG TABLET (FP) PO SCH (09:57)
[2017-08-24] MEDS: BACLOFEN 10 MG TABLET (FP) PO SCH ×2 (09:57→21:54)
[2017-08-24] MEDS: HYDROCHLOROTHIAZIDE 25 MG TABLET (FP) PO SCH (09:57)
[2017-08-24] MEDS: LIDOCAINE 5% TOPICAL PATCH TP SCH (09:57)
[2017-08-24] MEDS: PRENATAL VITAMINS W/ FOLIC ACID TABLET (FP) PO SCH (09:57)
[2017-08-24] MEDS: ASPIRIN COATED 81 MG TABLET.EC PO SCH (09:57)
[2017-08-24] MEDS: OMEGA-3 ACID ETHYL ESTERS (FATTY-ACIDS) 1 GM CAPSULE (FP) PO SCH (09:57)
[2017-08-24] MEDS: NICOTINE 14 MG/24 HOURS TOPICAL PATCH TD SCH (09:57)
[2017-08-24] MEDS: ATENOLOL 50 MG TABLET (FP) PO SCH (09:57)
[2017-08-24] MEDS: IBUPROFEN 400 MG TABLET (FP) PO PRN ×2 (09:59→19:13)
[2017-08-24] MEDS: ATORVASTATIN CA 20 MG TABLET (FP) PO SCH (21:54)
[2017-08-24] MEDS: THIAMINE HCL 100 MG TABLET (FP) PO SCH (21:54)
[2017-08-25] MEDS: metFORMIN HCL 500 MG TABLET (FP) PO SCH ×2 (06:15→16:41)
[2017-08-25] MEDS: NICOTINE POLACRILEX 2 MG GUM BUC PRN ×4 (06:16→21:06)
[2017-08-25] MEDS: NICOTINE 14 MG/24 HOURS TOPICAL PATCH TD SCH (09:39)
[2017-08-25] MEDS: HYDROCHLOROTHIAZIDE 25 MG TABLET (FP) PO SCH (09:40)
[2017-08-25] MEDS: BACLOFEN 10 MG TABLET (FP) PO SCH ×2 (09:40→21:05)
[2017-08-25] MEDS: LIDOCAINE 5% TOPICAL PATCH TP SCH (09:40)
[2017-08-25] MEDS: PRENATAL VITAMINS W/ FOLIC ACID TABLET (FP) PO SCH (09:40)
[2017-08-25] MEDS: amLODIPine BESYLATE 10 MG TABLET (FP) PO SCH (09:40)
[2017-08-25] MEDS: ASPIRIN COATED 81 MG TABLET.EC PO SCH (09:40)
[2017-08-25] MEDS: ATENOLOL 50 MG TABLET (FP) PO SCH (09:40)
[2017-08-25] MEDS: OMEGA-3 ACID ETHYL ESTERS (FATTY-ACIDS) 1 GM CAPSULE (FP) PO SCH (09:40)
[2017-08-25] MEDS: risperiDONE 2 MG TABLET PO SCH (09:40)
[2017-08-25] MEDS: IBUPROFEN 400 MG TABLET (FP) PO PRN (17:59)
[2017-08-25] MEDS: THIAMINE HCL 100 MG TABLET (FP) PO SCH (21:05)
[2017-08-25] MEDS: ATORVASTATIN CA 20 MG TABLET (FP) PO SCH (21:05)
[2017-08-26] MEDS: metFORMIN HCL 500 MG TABLET (FP) PO SCH ×2 (06:02→16:51)
[2017-08-26] MEDS ORDERED: PT OWN MED DRAWER 7, Y5N ONE (08:42)
[2017-08-26] MEDS: LIDOCAINE 5% TOPICAL PATCH TP SCH (09:41)
[2017-08-26] MEDS: OMEGA-3 ACID ETHYL ESTERS (FATTY-ACIDS) 1 GM CAPSULE (FP) PO SCH (09:41)
[2017-08-26] MEDS: PRENATAL VITAMINS W/ FOLIC ACID TABLET (FP) PO SCH (09:41)
[2017-08-26] MEDS: ATENOLOL 50 MG TABLET (FP) PO SCH (09:42)
[2017-08-26] MEDS: amLODIPine BESYLATE 10 MG TABLET (FP) PO SCH (09:42)
[2017-08-26] MEDS: HYDROCHLOROTHIAZIDE 25 MG TABLET (FP) PO SCH (09:42)
[2017-08-26] MEDS: BACLOFEN 10 MG TABLET (FP) PO SCH ×2 (09:42→22:04)
[2017-08-26] MEDS: ASPIRIN COATED 81 MG TABLET.EC PO SCH (09:42)
[2017-08-26] MEDS: NICOTINE 14 MG/24 HOURS TOPICAL PATCH TD SCH (09:42)
[2017-08-26] MEDS: risperiDONE 2 MG TABLET PO SCH (09:42)
[2017-08-26] MEDS: IBUPROFEN 400 MG TABLET (FP) PO PRN ×2 (09:43→22:05)
[2017-08-26] MEDS: NICOTINE POLACRILEX 2 MG GUM BUC PRN ×3 (09:45→16:53)
[2017-08-26] MEDS: THIAMINE HCL 100 MG TABLET (FP) PO SCH (22:04)
[2017-08-26] MEDS: ATORVASTATIN CA 20 MG TABLET (FP) PO SCH (22:04)
[2017-08-27] MEDS: NICOTINE POLACRILEX 2 MG GUM BUC PRN ×3 (05:57→21:08)
[2017-08-27] MEDS: metFORMIN HCL 500 MG TABLET (FP) PO SCH ×2 (07:13→16:46)
[2017-08-27] MEDS: OMEGA-3 ACID ETHYL ESTERS (FATTY-ACIDS) 1 GM CAPSULE (FP) PO SCH (10:13)
[2017-08-27] MEDS: HYDROCHLOROTHIAZIDE 25 MG TABLET (FP) PO SCH (10:13)
[2017-08-27] MEDS: ATENOLOL 50 MG TABLET (FP) PO SCH (10:13)
[2017-08-27] MEDS: BACLOFEN 10 MG TABLET (FP) PO SCH ×2 (10:13→21:07)
[2017-08-27] MEDS: ASPIRIN COATED 81 MG TABLET.EC PO SCH (10:13)
[2017-08-27] MEDS: risperiDONE 2 MG TABLET PO SCH (10:13)
[2017-08-27] MEDS: LIDOCAINE 5% TOPICAL PATCH TP SCH (10:13)
[2017-08-27] MEDS: PRENATAL VITAMINS W/ FOLIC ACID TABLET (FP) PO SCH (10:13)
[2017-08-27] MEDS: amLODIPine BESYLATE 10 MG TABLET (FP) PO SCH (10:13)
[2017-08-27] MEDS: NICOTINE 14 MG/24 HOURS TOPICAL PATCH TD SCH (10:13)
[2017-08-27] MEDS: IBUPROFEN 400 MG TABLET (FP) PO PRN ×2 (10:15→21:07)
[2017-08-27] MEDS: THIAMINE HCL 100 MG TABLET (FP) PO SCH (21:07)
[2017-08-27] MEDS: ATORVASTATIN CA 20 MG TABLET (FP) PO SCH (21:07)
[2017-08-28] MEDS: NICOTINE POLACRILEX 2 MG GUM BUC PRN ×4 (06:00→21:42)
[2017-08-28] MEDS: metFORMIN HCL 500 MG TABLET (FP) PO SCH ×2 (07:27→16:48)
[2017-08-28] MEDS: OMEGA-3 ACID ETHYL ESTERS (FATTY-ACIDS) 1 GM CAPSULE (FP) PO SCH (09:48)
[2017-08-28] MEDS: amLODIPine BESYLATE 10 MG TABLET (FP) PO SCH (09:48)
[2017-08-28] MEDS: HYDROCHLOROTHIAZIDE 25 MG TABLET (FP) PO SCH (09:48)
[2017-08-28] MEDS: BACLOFEN 10 MG TABLET (FP) PO SCH ×2 (09:48→21:42)
[2017-08-28] MEDS: ASPIRIN COATED 81 MG TABLET.EC PO SCH (09:48)
[2017-08-28] MEDS: ATENOLOL 50 MG TABLET (FP) PO SCH (09:48)
[2017-08-28] MEDS: PRENATAL VITAMINS W/ FOLIC ACID TABLET (FP) PO SCH (09:48)
[2017-08-28] MEDS: IBUPROFEN 400 MG TABLET (FP) PO PRN ×2 (09:48→21:42)
[2017-08-28] MEDS: LIDOCAINE 5% TOPICAL PATCH TP SCH (09:51)
[2017-08-28] MEDS: risperiDONE 2 MG TABLET PO SCH (09:52)
[2017-08-28] MEDS: NICOTINE 14 MG/24 HOURS TOPICAL PATCH TD SCH (09:52)
[2017-08-28] MEDS: ATORVASTATIN CA 20 MG TABLET (FP) PO SCH (21:42)
[2017-08-28] MEDS: THIAMINE HCL 100 MG TABLET (FP) PO SCH (21:42)
[2017-08-29] MEDS: NICOTINE POLACRILEX 2 MG GUM BUC PRN ×7 (06:07→21:52)
[2017-08-29] MEDS: metFORMIN HCL 500 MG TABLET (FP) PO SCH ×2 (06:07→16:49)
[2017-08-29] MEDS: amLODIPine BESYLATE 10 MG TABLET (FP) PO SCH (09:55)
[2017-08-29] MEDS: OMEGA-3 ACID ETHYL ESTERS (FATTY-ACIDS) 1 GM CAPSULE (FP) PO SCH (09:55)
[2017-08-29] MEDS: HYDROCHLOROTHIAZIDE 25 MG TABLET (FP) PO SCH (09:55)
[2017-08-29] MEDS: LIDOCAINE 5% TOPICAL PATCH TP SCH (09:55)
[2017-08-29] MEDS: ASPIRIN COATED 81 MG TABLET.EC PO SCH (09:55)
[2017-08-29] MEDS: PRENATAL VITAMINS W/ FOLIC ACID TABLET (FP) PO SCH (09:55)
[2017-08-29] MEDS: risperiDONE 2 MG TABLET PO SCH (09:56)
[2017-08-29] MEDS: ATENOLOL 50 MG TABLET (FP) PO SCH (09:56)
[2017-08-29] MEDS: NICOTINE 14 MG/24 HOURS TOPICAL PATCH TD SCH (09:56)
[2017-08-29] MEDS: BACLOFEN 10 MG TABLET (FP) PO SCH ×2 (09:56→21:51)
[2017-08-29] MEDS: THIAMINE HCL 100 MG TABLET (FP) PO SCH (21:51)
[2017-08-29] MEDS: IBUPROFEN 400 MG TABLET (FP) PO PRN (21:51)
[2017-08-29] MEDS: ATORVASTATIN CA 20 MG TABLET (FP) PO SCH (21:51)
[2017-08-30] MEDS: NICOTINE POLACRILEX 2 MG GUM BUC PRN ×6 (05:56→18:01)
[2017-08-30] MEDS: metFORMIN HCL 500 MG TABLET (FP) PO SCH ×2 (06:18→16:46)
[2017-08-30] MEDS: PRENATAL VITAMINS W/ FOLIC ACID TABLET (FP) PO SCH (09:54)
[2017-08-30] MEDS: NICOTINE 14 MG/24 HOURS TOPICAL PATCH TD SCH (09:55)
[2017-08-30] MEDS: amLODIPine BESYLATE 10 MG TABLET (FP) PO SCH (09:55)
[2017-08-30] MEDS: HYDROCHLOROTHIAZIDE 25 MG TABLET (FP) PO SCH (09:55)
[2017-08-30] MEDS: ASPIRIN COATED 81 MG TABLET.EC PO SCH (09:55)
[2017-08-30] MEDS: ATENOLOL 50 MG TABLET (FP) PO SCH (09:55)
[2017-08-30] MEDS: OMEGA-3 ACID ETHYL ESTERS (FATTY-ACIDS) 1 GM CAPSULE (FP) PO SCH (09:55)
[2017-08-30] MEDS: IBUPROFEN 400 MG TABLET (FP) PO PRN ×2 (09:56→21:52)
[2017-08-30] MEDS: risperiDONE 2 MG TABLET PO SCH (09:58)
[2017-08-30] MEDS: BACLOFEN 10 MG TABLET (FP) PO SCH ×2 (09:58→21:52)
[2017-08-30] MEDS: LIDOCAINE 5% TOPICAL PATCH TP SCH (09:58)
--- NOTE | 2017-08-30 14:12 | PN ---
Psychiatric Progress Note Vital Signs: Vital Signs Period Temp Pulse Resp BP Sys/Brian Pulse Ox Last 24 Hr 97.7 F 73-75 16-18 142-143/80-83 Date of Session: 08/30/17 Chief Complaint:: Discharge Note HPI: Patient addressing Alcohol and Cocaine Dependence comorbid with Nicotine Dependence and Schizoaffective Disorder ROS: Arthritis, DM, PPD+, HTN, HLD were medically managed Current Medications: Active Medications Generic Name Dose Route Start Last Admin Trade Name Freq PRN Reason Stop Dose Admin Acetaminophen 650 mg 08/10/17 16:20 Tylenol - PO Q4H PRN FEVER Amlodipine Besylate 10 mg 08/11/17 10:00 08/30/17 09:55 Norvasc - PO 10 mg DAILY ARLETH Administration Aspirin 81 mg 08/11/17 10:00 08/30/17 09:55 Ecotrin - PO 81 mg DAILY ARLETH Administration Atenolol 25 mg 08/11/17 10:00 08/30/17 09:55 Tenormin - PO 25 mg DAILY ARLETH Administration Atorvastatin Calcium 20 mg 08/10/17 22:00 08/29/17 21:51 Lipitor - PO 20 mg HS ARLETH Administration Baclofen 10 mg 08/10/17 22:00 08/30/17 09:58 Lioresal - PO 10 mg BID ARLETH Administration Bupropion HCl 300 mg 08/11/17 10:00 08/30/17 09:55 Wellbutrin Xl - PO 300 mg DAILY ARLETH Administration Colloidal Oatmeal 1 applic 08/10/17 16:23 08/11/17 17:46 Aveeno Soap - TP 1 applic DAILY PRN Administration HYGEINE Eucalyptus/Menthol/Phenol/Sorbitol 1 each 08/10/17 16:20 Cepastat Lozenge - MM Q4H PRN SORE THROAT Guaifenesin 10 ml 08/10/17 16:20 Robitussin Dm - PO Q6H PRN COUGH Hydrochlorothiazide 25 mg 08/11/17 10:00 08/30/17 09:55 Hctz - PO 25 mg DAILY ARLETH Administration Ibuprofen 800 mg 08/10/17 16:20 08/30/17 09:56 Motrin - PO 800 mg Q8H PRN Administration Pain Level 4-6 Lidocaine 1 patch 08/11/17 10:00 08/30/17 09:58 Lidoderm Patch - TP 1 patch DAILY ARLETH Administration Loperamide HCl 4 mg 08/10/17 16:20 Imodium - PO Q6H PRN DIARRHEA Melatonin 5 mg 08/10/17 22:00 Melatonin PO HS PRN INSOMNIA Metformin HCl 500 mg 08/11/17 07:00 08/30/17 06:18 Glucophage - PO 500 mg BIDAC ARLETH Administration Nicotine 14 mg 08/11/17 10:00 08/30/17 09:55 Nicoderm Patch - TD Not Given DAILY ARLETH Nicotine Polacrilex 2 mg 08/10/17 16:22 08/30/17 14:05 Nicorette Gum - BUC 2 mg Q2H PRN Administration NICOTINE REPLACEMENT RX Twywp-2-Rryr Ethyl Esters 1 gm 08/11/17 10:00 08/30/17 09:55 Lovaza - PO 1 gm DAILY ARLETH Administration Multivit/Folic Acid/Iron 1 tab 08/11/17 10:00 08/30/17 09:54 Vitamins (Sjr) - PO 1 tab DAILY ARLETH Administration Pseudoephedrine/Triprolidine 1 combo 08/10/17 16:20 Actifed - PO TID PRN NASAL CONGESTION Risperidone 2 mg 08/11/17 10:00 08/30/17 09:58 Risperdal - PO Not Given DAILY ARLETH Thiamine HCl 100 mg 08/10/17 22:00 08/29/17 21:51 Vitamin B1 - PO 100 mg HS ARLETH Administration Current Side Effect: No Lab tests ordered: Yes Lab tests reviewed: Yes Provider note:: Patient will complete this program on 08/31/17. He has met his treatment goals and will continue to address his issues in outpatient treatment at the [facility] outpatient. Told senior writer that from his participation in this program, he has learned the importance of adherence to his medication regimen and avoid self medication. He responded well to Risperdal 2 mg po daily and Wellbutrin XK 300 mg po daily. Scripts for these medications will be electronicaly transmitted to [facility] at [address] [place] [address]. He is stable for discharge on 08/31/17 Total face to face time:: 35 Mental Status Exam - Mental Status Exam Alert and Oriented to: Time, Place, Person Cognitive Function: Fair Patient Appearance: Well Groomed Mood: Hopeful, Euthymic Patient Behavior: Cooperative Speech Pattern: Clear Voice Loudness: Normal Thought Process: Intact, Goal Oriented Thought Disorder: Not Present Hallucinations: Denies Suicidal Ideation: Denies Homicidal Ideation: Denies Insight/Judgement: Fair Sleep: Fair Appetite: Good Muscle strength/Tone: Normal Gait/Station: Normal Psychiatric Treatment Plan - Problem List (1) Alcohol dependence Current Visit: No (2) Cocaine dependence Current Visit: No Qualifiers: Substance use status: uncomplicated Qualified Code(s): F14.20 - Cocaine dependence, uncomplicated (3) Nicotine dependence Current Visit: No Qualifiers: Nicotine product type: cigarettes Substance use status: in withdrawal Qualified Code(s): F17.213 - Nicotine dependence, cigarettes, with withdrawal (4) Schizoaffective disorder Current Visit: No Qualifiers: Schizoaffective disorder type: depressive Qualified Code(s): F25.1 - Schizoaffective disorder, depressive type Comment: History. Compliant with medication. (5) Arthritis Current Visit: No (6) Diabetes mellitus Current Visit: No Qualifiers: Diabetes mellitus type: type 2 Diabetes mellitus computer terminal operator insulin use: without computer terminal operator use Diabetes mellitus complication status: with unspecified complications Qualified Code(s): E11.8 - Type 2 diabetes mellitus with unspecified complications (7) History of positive PPD Current Visit: No (8) Hypercholesteremia Current Visit: No (9) Hypertension Current Visit: No Qualifiers: Hypertension type: essential hypertension Qualified Code(s): I10 - Essential (primary) hypertension (10) Spinal stenosis, lumbosacral region Current Visit: No Initial treatment plan: Patient will be discharged tomorrow and referred to The [facility] program for outpatient treatment
--- NOTE | 2017-08-30 14:44 | PN ---
[facility] Progress Note Note: Patient schedule for discharge tomorrow. Patient to follow up with PMD 1-2 weeks post discharge.
[2017-08-30] MEDS: ATORVASTATIN CA 20 MG TABLET (FP) PO SCH (21:51)
[2017-08-30] MEDS: THIAMINE HCL 100 MG TABLET (FP) PO SCH (21:52)
[2017-08-31] MEDS: NICOTINE POLACRILEX 2 MG GUM BUC PRN ×2 (05:58→08:52)
[2017-08-31] MEDS: metFORMIN HCL 500 MG TABLET (FP) PO SCH (07:03)
[2017-08-31 07:21] VITALS: BP 145/81; PULSE 67; TEMP 98.3
[2017-08-31] MEDS: IBUPROFEN 400 MG TABLET (FP) PO PRN (08:49)
[2017-08-31] MEDS ORDERED: PT OWN MED DRAWER 7, Y5N ONE (08:52)
== END 2017-08-31 08:53 | disposition home or self-care (01) | DRG 772 ==
LOC: YASAS 15:35 → Y3W 15:36
PROVIDERS: ADMIT Psychiatry & Neurology Psychiatry; ATTEND Psychiatry & Neurology Psychiatry
PROC: HZ42ZZZ Group Counseling for Substance Abuse Treatment, Cognitive-Behavioral (ICD-10-PCS; principal; 2017-08-10)
DX: F10.20 Alcohol dependence, uncomplicated (principal); F14.20 Cocaine dependence, uncomplicated; F17.213 Nicotine dependence, cigarettes, with withdrawal; F25.1 Schizoaffective disorder, depressive type; I10 Essential (primary) hypertension; E78.00 Pure hypercholesterolemia, unspecified; E11.9 Type 2 diabetes mellitus without complications; Z79.84 Long term (current) use of oral hypoglycemic drugs; M12.9 Arthropathy, unspecified; M48.07 Spinal stenosis, lumbosacral region; R76.11 Nonspecific reaction to tuberculin skin test without active tuberculosis; Z96.641 Presence of right artificial hip joint; Z88.8 Allergy status to other drugs, medicaments and biological substances
CPT/HCPCS: 82962; J0475

== ENCOUNTER 2017-10-01 14:11 | Inpatient (IN) | payer OTHER ==
[2017-10-01 14:55] VITALS: BMI 32.5
--- NOTE | 2017-10-01 19:20 | HP ---
Admission [facility] Chief Complaint: REHAB TX Allergies/Adverse Reactions: Allergies Allergy/AdvReac Type Severity Reaction Status Date / Time enalapril [Enalapril] Allergy Severe Swelling Verified 10/01/17 16:32 levofloxacin [From Levaquin] Allergy Severe Hives Verified 10/01/17 16:32 haloperidol [From Haldol] AdvReac Severe stiffness Verified 10/01/17 16:32 haloperidol lactate AdvReac Severe sfiffness Verified 10/01/17 16:32 [From Haldol] History of Present Illness: 62 Y/O AA/MALE WITH A HX OF ALCOHOL AND COCAINE DEPENDENCE SEEKING REHAB TX. PT WAS WAS D/C'D FROM [facility] ON09/28/17. Exam Limitations: No Limitations - Ebola screening Have you traveled outside of the country in the last 21 days: No (N) Have you had contact with anyone from an Ebola affected area: No Have you been sick,other than usual withdrawal symptoms: No Do you have a fever: No - Review of Systems Constitutional: Loss of Appetite, Changes in sleep EENT: reports: Blurred Vision (WEARS GLASSES), Dental Problems (MISSING TEETH) Respiratory: reports: No Symptoms reported Cardiac: reports: No Symptoms Reported GI: reports: Diarrhea, Nausea, Poor Fluid Intake, Vomiting : reports: No Symptoms Reported Musculoskeletal: reports: Back Pain (HX SPINAL STENOSIS), Muscle Pain (AND LEG CRAMPS) Integumentary: reports: No Symptoms Reported Neuro: reports: Headache, Numbness, Tingling, Tremors Endocrine: reports: No Symptoms Reported Hematology: reports: Anemia Psychiatric: reports: Orientated x3, Anxious, Depressed Other Systems: Reviewed and Negative Patient History - Patient Medical History Hx Anemia: Yes (NO CURRENT MED) Hx Asthma: No Hx Chronic Obstructive Pulmonary Disease (COPD): No Hx Cancer: No Hx Cardiac Disorders: No Hx Congestive Heart Failure: No Hx Hypertension: Yes (ON MED) Hx Hypercholesterolemia: Yes (ATORVASTATIN) Hx Pacemaker: No HX Cerebrovascular Accident: No Hx Seizures: No Hx Dementia: No Hx Diabetes: Yes (NIDDM-ON METFORMIN 500 MG BID) Hx Gastrointestinal Disorders: No Hx Liver Disease: No Hx Genitourinary Disorders: No Hx Sexually Transmitted Disorders: No Hx Renal Disease (ESRD): No Hx Thyroid Disease: No Hx Human Immunodeficiency Virus (HIV): No (NEGATIVE HX) Hx Hepatitis C: No (DENIES) Hx Depression: Yes (ON MED) Hx Suicide Attempt: No (DENIES S/I) Hx Bipolar Disorder: No Hx Schizophrenia: No - Patient Surgical History Past Surgical History: Yes Hx Neurologic Surgery: No Hx Cataract Extraction: No Hx Cardiac Surgery: No Hx Lung Surgery: No Hx Breast Surgery: No Hx Breast Biopsy: No Hx Abdominal Surgery: No Hx Appendectomy: No Hx Cholecystectomy: No Hx Genitourinary Surgery: No Hx Orthopedic Surgery: Yes (right hip replacement in 04/2003 at [facility] for avascular necrosis) Other Surgical History: Surgery to repair Right Fibula fracture: 1996. Anesthesia Reaction: No - PPD History Previous Implant?: Yes Documented Results: Positive w/o proof Results: cxr(-)06/19/17 PPD to be Administered?: No - Reproductive History Patient is a Female of Child Bearing Age (11 -55 yrs old): No (MALE) - Smoking Cessation Smoking history: Current every day smoker Have you smoked in the past 12 months: Yes Aproximately how many cigarettes per day: 8 Cigars Per Day: 0 Hx Chewing Tobacco Use: No Initiated information on smoking cessation: Yes 'Breaking Loose' booklet given: 10/01/17 - Substance & Tx. History Hx Alcohol Use: Yes (COGNAC/VODKA) Hx Substance Use: Yes (COCAINE) Substance Use Type: Alcohol, Cocaine Hx Substance Use Treatment: Yes (LAST TX AT [facility]) - Substances Abused Cocaine Route: Inhalation Frequency: Daily Amount used: $50 Age of first use: 20 Date of Last Use: 09/30/17 Alcohol-cognac/vodka Route: Oral Frequency: Daily Amount used: 1 pt. Age of first use: 15 Date of Last Use: 09/30/17 Family Disease History - Family Disease History Family Disease History: Heart Disease: Father (), Respiratory: Mother ( ), Other: Father, Mother Admission Physical Exam S - Vital Signs Vital Signs: Vital Signs - 24 hr 10/01/17 14:54 Temperature 96.9 F L Pulse Rate 83 Respiratory 18 Rate Blood Pressure 166/93 - Physical General Appearance: Yes: No Apparent Distress, Appropriately Dressed, Anxious HEENTM: Yes: Normocephalic, WILLY, Pharynx Normal Respiratory: Yes: Chest Non-Tender, Lungs Clear, Normal Breath Sounds, No Respiratory Distress Neck: Yes: No masses,lesions,Nodules, Supple, Trachea in good position Breast: Yes: Breast Exam Deferred Cardiology: Yes: Regular Rhythm, Regular Rate, S1, S2 Abdominal: Yes: Normal Bowel Sounds, Non Tender, Soft Genitourinary: Yes: Other (N/C) Back: Yes: Within Normal Limits Musculoskeletal: Yes: full range of Motion, Gait Steady Extremities: Yes: Normal Range of Motion, Non-Tender Neurological: Yes: gas maker II-XII NML intact, Fully Oriented, Alert, Motor Strength 5/5 Integumentary: Yes: Dry, Warm Lymphatic: Yes: Within Normal Limits - Diagnostic (1) Alcohol dependence with uncomplicated withdrawal Current Visit: Yes Status: Chronic (2) Cocaine dependence Current Visit: Yes Status: Chronic Qualifiers: Substance use status: uncomplicated Qualified Code(s): F14.20 - Cocaine dependence, uncomplicated (3) Cannabis dependence, uncomplicated Current Visit: Yes Status: Chronic (4) Arthritis Current Visit: Yes Status: Chronic (5) Diabetes mellitus Current Visit: Yes Status: Chronic Qualifiers: Diabetes mellitus type: type 2 Diabetes mellitus ad terminal makeup operator insulin use: without ad terminal makeup operator use Diabetes mellitus complication status: with unspecified complications Qualified Code(s): E11.8 - Type 2 diabetes mellitus with unspecified complications (6) History of depression Current Visit: Yes Status: Chronic (7) Hypercholesteremia Current Visit: Yes Status: Chronic (8) Hypertension Current Visit: Yes Status: Chronic Qualifiers: Hypertension type: essential hypertension Qualified Code(s): I10 - Essential (primary) hypertension (9) Spinal stenosis, lumbosacral region Current Visit: Yes Status: Chronic (10) Walker as ambulation aid Current Visit: Yes Status: Chronic Cleared for Admission [facility] - Detox or Rehab Claeared for Rehab Admission: Yes [facility] Breath Alcohol Content Breath Alcohol Content: 0 Urine Drug Screen - Results Drug Screen Negative: No Urine Drug Screen Results: JESUS ALBERTO-Cocaine, BZO-Benzodiazepines Inpatient Rehab Admission - Initial Determination Are CD services needed?: Yes Free of communicable disease: Yes Not in need of hospitalization: Yes - Rehab Admission Criteria Patient is meeting Inpatient Rehab admission criteria:: Yes
[2017-10-01] MEDS ORDERED: guaiFENesin/D-METHORPHAN HB 10 ML UNIT-DOSE CUPS PO PRN (19:26)
[2017-10-01] MEDS ORDERED: MAG HYDROX/AL HYDROX/SIMETH 30 ML UNIT-DOSE CUP PO PRN (19:26)
[2017-10-01] MEDS ORDERED: LOPERAMIDE HCL 2 MG CAPSULE PO PRN (19:26)
[2017-10-01] MEDS ORDERED: P-EPHED 60MG/TRIPROLIDI 2.5MG TABLET PO PRN (19:26)
[2017-10-01] MEDS ORDERED: MAGNESIUM HYDROX 2400MG/30ML ORAL SUSPENSION 30 ML CUP PO PRN (19:26)
[2017-10-01] MEDS ORDERED: ACETAMINOPHEN 325 MG TABLET (FP) PO PRN (19:26)
[2017-10-01] MEDS ORDERED: hydrOXYzine PAMOATE 50 MG CAPSULE (FP) PO PRN (19:26)
[2017-10-01] MEDS ORDERED: MENTHOL/PHENOL 1 EACH UD MM PRN (19:26)
[2017-10-01] MEDS ORDERED: MAGNESIUM CITRATE 300 ML BOTTLE PO PRN (19:26)
[2017-10-01] MEDS ORDERED: IBUPROFEN 400 MG TABLET (FP) PO PRN (19:26)
[2017-10-01] MEDS ORDERED: MELATONIN 5 MG TABLETS PO PRN (22:00)
[2017-10-01] MEDS: THIAMINE HCL 100 MG TABLET (FP) PO SCH (22:19)
[2017-10-01] MEDS: ATENOLOL 50 MG TABLET (FP) PO SCH (22:19)
[2017-10-01] MEDS: amLODIPine BESYLATE 10 MG TABLET (FP) PO SCH (22:19)
[2017-10-01] MEDS: ATORVASTATIN CA 20 MG TABLET (FP) PO SCH (22:20)
[2017-10-01] MEDS: BACLOFEN 10 MG TABLET (FP) PO SCH (22:20)
[2017-10-01] MEDS: ASPIRIN COATED 81 MG TABLET.EC PO SCH (22:20)
[2017-10-01] MEDS: LIDOCAINE PATCH REMOVAL MC SCH (22:21)
[2017-10-01] MEDS: NICOTINE 14 MG/24 HOURS TOPICAL PATCH TD SCH (22:21)
[2017-10-02 01:04] LABS: URINE APPEARANCE CLEAR; URINE BILIRUBIN NEGATIVE (<2.0 mg/dL); URINE COLOR YELLOW; URINE GLUCOSE (UA) NEGATIVE (NEGATIVE); URINE KETONE TRACE (NEGATIVE); URINE LEUK ESTERASE NEGATIVE (NEGATIVE); URINE NITRITE NEGATIVE (NEGATIVE); URINE UROBILINOGEN 4.0 E.U/dl mg/dL (0.2-1.0)
[2017-10-02 01:10] LABS: URINE PROTEIN 2+ (NEGATIVE)
[2017-10-02 01:16] LABS: EPI CELLS RARE /HPF (FEW); URINE MUCUS RARE
[2017-10-02] MEDS: metFORMIN HCL 500 MG TABLET (FP) PO SCH ×2 (06:24→16:56)
--- NOTE | 2017-10-02 06:32 | HP ---
Psychiatrist Admission - Data Date of interview: 10/02/17 Admission source: Self-referred Identifying data: This is one of the multiple [facility] admissions for this 62 years old single Black male, unemployed on public assistance, domiciled Medical History: Significant for hypertension, dyslipidemia, type 2 diabetes mellitus, spinal stenosis, lower back pain, history of prophylactic treatment for TB with INH (2004), arthritis at L3-L4 level, angina, history of right hip replacement for avascular necrosis (2003) and fracture right fibula in 1996. Smokes 8 cigarettes daily Psychiatric History: Patient is well known to writer editor by todd of previous admissions in this facility. Reports onset of psychiatric disturbances in 2003 when he was admitted to [facility] and diagnosed with Schizoaffective Disorder. Reports multiple psychiatric admissions to various institutions including to [facility], [facility], [facility], [facility] and [facility] in [facility] and most recently from the [facility] from June-July 2017. Mr Noonan is still receiving outpatient psychiatric services at the [facility] clinic (under the care of Dr Yao) in the [place]. He is prescibed Risperdal 2 mg po daily and Wellbutrin XL 300 mg po daily.Patient admits to sub-optimal adherence to his medications. Report of history of several suicide attempts, most recently in January 2017,via deliberate self exposure to oncoming traffic. At present, reports feeling and sleeping well. Denies experincing psychotic, manic or depressive symptoms, S/H idetions Physical/Sexual Abuse/Trauma History: Patient denies history of emotional, sexual or physical abuse as well as DV relationship. Patient is a [employer] (3 years of active duty: [id number]). Served in [employer] [facility], [facility] and [place] in the . No report of flashbacks or nightmares. Additional Comment: Reports history of multiple previous arrests including 3 felony convictions. Reports being off parole for 8 years Vital Signs: Vital Signs - 24 hr 10/01/17 10/01/17 10/02/17 14:54 22:00 01:34 Temperature 96.9 F L Pulse Rate 83 78 Respiratory 18 16 Rate Blood Pressure 166/93 130/89 10/02/17 03:30 Temperature Pulse Rate Respiratory 16 Rate Blood Pressure Allergies/Adverse Reactions: Allergies Allergy/AdvReac Type Severity Reaction Status Date / Time enalapril [Enalapril] Allergy Severe Swelling Verified 10/01/17 23:45 levofloxacin [From Levaquin] Allergy Severe Hives Verified 10/01/17 23:45 haloperidol [From Haldol] AdvReac Severe stiffness Verified 10/01/17 23:45 haloperidol lactate AdvReac Severe sfiffness Verified 10/01/17 23:45 [From Haldol] Date of last physical exam: 10/01/17 Concur with the findings of this exam: Yes - Substance Abuse/Tx History Hx Alcohol Use: Yes Hx Substance Use: Yes Substance Use Type: Alcohol (Started drinking alcohol at age 15, consumes one pint of cognac or vodka daily. Last drank on 09/30/17), Cocaine (Started using cocaine at age 20, consumes $50 worth daily. Last used on $50 worth daily) Hx Substance Use Treatment: Yes (Multiple(7)previous inpt detox & multiple(6) inpt ehab admissions @ [facility]) Mental Status Exam - Mental Status Exam Alert and Oriented to: Time, Place, Person Cognitive Function: Fair Patient Appearance: Well Groomed Mood: Hopeful, Euthymic Affect: Appropriate Patient Behavior: Cooperative Speech Pattern: Clear Voice Loudness: Normal Thought Process: Intact Thought Disorder: Not Present Hallucinations: Denies Suicidal Ideation: Denies Homicidal Ideation: Denies Insight/Judgement: Fair Sleep: Well Appetite: Good Muscle strength/Tone: Normal Gait/Station: Other (Uses a cane as ambulatory aid) Psychiatric Findings - Problem List ([place] 1, 2,3) (1) Alcohol dependence Current Visit: Yes Status: Acute (2) Cocaine dependence Current Visit: Yes Status: Acute Qualifiers: Substance use status: uncomplicated Qualified Code(s): F14.20 - Cocaine dependence, uncomplicated (3) Nicotine dependence Current Visit: No Status: Chronic Qualifiers: Nicotine product type: cigarettes Substance use status: in withdrawal Qualified Code(s): F17.213 - Nicotine dependence, cigarettes, with withdrawal (4) Schizoaffective disorder Current Visit: No Status: Chronic Qualifiers: Schizoaffective disorder type: depressive Qualified Code(s): F25.1 - Schizoaffective disorder, depressive type Comment: History. Compliant with medication. 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 insulin use: without equipment operator intermodal yard use Diabetes mellitus complication status: with unspecified complications Qualified Code(s): E11.8 - Type 2 diabetes mellitus with unspecified complications (7) Hypercholesteremia Current Visit: Yes Status: Chronic (8) Hypertension Current Visit: Yes Status: Chronic Qualifiers: Hypertension type: essential hypertension Qualified Code(s): I10 - Essential (primary) hypertension (9) Spinal stenosis, lumbosacral region Current Visit: Yes Status: Chronic (10) Walker as ambulation aid Current Visit: Yes Status: Chronic (11) History of positive PPD Current Visit: No Status: Chronic - Initial Treatment Plan Initial Treatment Plan: 1) Continue Risperdal 2 mg po daily and Wellbutrin XL 300 mg po daily. 2) Monitor progress
[2017-10-02] MEDS: LIDOCAINE 5% TOPICAL PATCH TP SCH (10:26)
[2017-10-02] MEDS: amLODIPine BESYLATE 10 MG TABLET (FP) PO SCH (10:27)
[2017-10-02] MEDS: PRENATAL VITAMINS W/ FOLIC ACID TABLET (FP) PO SCH (10:27)
[2017-10-02] MEDS: ASPIRIN COATED 81 MG TABLET.EC PO SCH (10:27)
[2017-10-02] MEDS: BACLOFEN 10 MG TABLET (FP) PO SCH ×2 (10:27→21:45)
[2017-10-02] MEDS: HYDROCHLOROTHIAZIDE 25 MG TABLET (FP) PO SCH (10:27)
[2017-10-02] MEDS: ATENOLOL 50 MG TABLET (FP) PO SCH (10:27)
[2017-10-02] MEDS: NICOTINE 14 MG/24 HOURS TOPICAL PATCH TD SCH (10:28)
[2017-10-02] MEDS: NICOTINE POLACRILEX 2 MG GUM BUC PRN ×4 (10:29→21:46)
[2017-10-02] MEDS: risperiDONE 2 MG TABLET PO SCH (11:21)
[2017-10-02] MEDS ORDERED: ONDANSETRON *ODT* 4 MG TABLET SL PRN (12:31)
--- NOTE | 2017-10-02 12:31 | PN ---
S Progress Note Note: Vital Signs Temperature 97.9 F 10/02/17 07:00 Pulse Rate 67 10/02/17 07:00 Respiratory Rate 19 10/02/17 07:00 Blood Pressure 154/87 10/02/17 07:00 O2 Sat by Pulse Oximetry (%) c/o of nausea zofran prn fluids as tolerated continue to monitor
--- NOTE | 2017-10-02 13:16 | EKG ---
Test Reason : Blood Pressure : / mmHG Vent. Rate : 057 BPM Atrial Rate : 057 BPM P-R Int : 154 ms QRS Dur : 090 ms QT Int : 422 ms P-R-T Axes : 025 -23 002 degrees QTc Int : 410 ms SINUS BRADYCARDIA OTHERWISE NORMAL ECG WHEN COMPARED WITH ECG OF 06-AUG-2017 21:13, NO SIGNIFICANT CHANGE WAS FOUND Confirmed by Luc Chapin MD ([id number]) on 10/02/2017 1:16:15 PM Referred By: Confirmed By:Luc Chapin MD
[2017-10-02 14:58] LABS: HEMATOCRIT 41.8 % (35.4-49); HEMOGLOBIN 14.5 GM/dL (11.7-16.9); MCH 33.6 pg (25.7-33.7); MCHC 34.6 g/dl (32.0-35.9); MEAN CELL VOLUME 97.2 fl (80-96); MEAN PLT VOLUME 9.2 fl (7.5-11.1); PLATELET COUNT 180 K/MM3 (134-434); RDW 13.5 % (11.9-15.9); WHITE BLOOD COUNT 3.5 K/mm3 (4.0-10.0)
[2017-10-02 15:09] LABS: CHLORIDE 103 mmol/L (98-107); POTASSIUM 4.2 mmol/L (3.5-5.1); SODIUM 139 mmol/L (136-145)
[2017-10-02 15:16] LABS: ALBUMIN 3.9 g/dl (3.4-5.0); ALK PHOS 77 U/L (45-117); ANION GAP 6 MMOL/L (8-16); BILIRUBIN,TOTAL 0.9 mg/dL (0.2-1.0); BLOOD UREA NITROGEN 12 mg/dL (7-18); CALCIUM 9.1 mg/dL (8.5-10.1); CO2 30 mmol/L (21-32); GLUCOSE,RANDOM 138 mg/dL (74-106); SGOT/AST 23 U/L (15-37); SGPT/ALT 34 U/L (12-78)
[2017-10-02] MEDS: LIDOCAINE PATCH REMOVAL MC SCH (21:44)
[2017-10-02] MEDS: THIAMINE HCL 100 MG TABLET (FP) PO SCH (21:45)
[2017-10-02] MEDS: ATORVASTATIN CA 20 MG TABLET (FP) PO SCH (21:45)
[2017-10-03] MEDS: metFORMIN HCL 500 MG TABLET (FP) PO SCH ×2 (06:09→16:56)
[2017-10-03] MEDS: NICOTINE POLACRILEX 2 MG GUM BUC PRN ×4 (06:10→21:33)
[2017-10-03] MEDS: PRENATAL VITAMINS W/ FOLIC ACID TABLET (FP) PO SCH (10:27)
[2017-10-03] MEDS: risperiDONE 2 MG TABLET PO SCH (10:27)
[2017-10-03] MEDS: BACLOFEN 10 MG TABLET (FP) PO SCH ×2 (10:27→21:32)
[2017-10-03] MEDS: amLODIPine BESYLATE 10 MG TABLET (FP) PO SCH (10:28)
[2017-10-03] MEDS: ASPIRIN COATED 81 MG TABLET.EC PO SCH (10:28)
[2017-10-03] MEDS: ATENOLOL 50 MG TABLET (FP) PO SCH (10:28)
[2017-10-03] MEDS: LIDOCAINE 5% TOPICAL PATCH TP SCH (10:29)
[2017-10-03] MEDS: NICOTINE 14 MG/24 HOURS TOPICAL PATCH TD SCH (10:29)
[2017-10-03] MEDS: HYDROCHLOROTHIAZIDE 25 MG TABLET (FP) PO SCH (10:29)
[2017-10-03] MEDS ORDERED: IBUPROFEN 400 MG TABLET (FP) PO PRN (13:09)
--- NOTE | 2017-10-03 13:12 | PN ---
[facility] Progress Note Note: Vital Signs Temperature 97.5 F L 10/03/17 06:54 Pulse Rate 72 10/03/17 10:00 Respiratory Rate 19 10/03/17 06:54 Blood Pressure 146/84 10/03/17 10:00 O2 Sat by Pulse Oximetry (%) Laboratory Last Values WBC 3.5 K/mm3 (4.0-10.0) L 10/02/17 09:30 RBC 4.30 M/mm3 (4.00-5.60) 10/02/17 09:30 Hgb 14.5 GM/dL (11.7-16.9) 10/02/17 09:30 Hct 41.8 % (35.4-49) 10/02/17 09:30 MCV 97.2 fl (80-96) H 10/02/17 09:30 MCH 33.6 pg (25.7-33.7) 10/02/17 09:30 MCHC 34.6 g/dl (32.0-35.9) 10/02/17 09:30 RDW 13.5 % (11.9-15.9) 10/02/17 09:30 Plt Count 180 K/MM3 (134-434) 10/02/17 09:30 MPV 9.2 fl (7.5-11.1) D 10/02/17 09:30 Sodium 139 mmol/L (136-145) 10/02/17 09:30 Potassium 4.2 mmol/L (3.5-5.1) 10/02/17 09:30 Chloride 103 mmol/L (98-107) 10/02/17 09:30 Carbon Dioxide 30 mmol/L (21-32) 10/02/17 09:30 Anion Gap 6 MMOL/L (8-16) L 10/02/17 09:30 BUN 12 mg/dL (7-18) 10/02/17 09:30 Creatinine 1.0 mg/dL (0.7-1.3) 10/02/17 09:30 Creat Clearance w eGFR > 60 (>60) 10/02/17 09:30 POC Glucometer 126 UNITS (80-120) 10/03/17 06:06 Random Glucose 138 mg/dL (74-106) H 10/02/17 09:30 Calcium 9.1 mg/dL (8.5-10.1) 10/02/17 09:30 Total Bilirubin 0.9 mg/dL (0.2-1.0) 10/02/17 09:30 AST 23 U/L (15-37) 10/02/17 09:30 ALT 34 U/L (12-78) 10/02/17 09:30 Alkaline Phosphatase 77 U/L (45-117) 10/02/17 09:30 Total Protein 8.0 g/dl (6.4-8.2) 10/02/17 09:30 Albumin 3.9 g/dl (3.4-5.0) 10/02/17 09:30 Urine Color Yellow 10/01/17 23: Urine Appearance Clear 10/01/17: Urine pH 7.0 (5.0-8.0) D 10/01/17 23:29 Ur Specific [place] 1.026 (1.001-1.035) 10/01/17 23:29 Urine Protein 2+ (NEGATIVE) H 10/01/17 23:29 Urine Glucose (UA) Negative (NEGATIVE) 10/01/17 23:29 Urine Ketones Trace (NEGATIVE) H 10/01/17 23:29 Urine Blood Negative (NEGATIVE) 10/01/17 23:29 Urine Nitrite Negative (NEGATIVE) 10/01/17: Urine Bilirubin Negative (<2.0 mg/dL) 10/01/17 23: Urine Urobilinogen 4.0 e.u/dl mg/dL (0.2-1.0) 10/01/17 23:29 Ur Leukocyte Esterase Negative (NEGATIVE) 10/01/17 23:29 Urine WBC (Auto) 1 /hpf (3-5) 10/01/17 23:29 Urine RBC (Auto) 6 /hpf (0-3) 10/01/17 23:29 Ur Epithelial Cells Rare /HPF (FEW) 10/01/17: Urine Mucus Rare 10/01/17 23:29 c/o of back pain unrelieved with baclofen , Tylenol, lidocaine patch , reports hx of spinal sclerosis. Reports at home takes ibuprofen for pain relief. Denies new onset of incontinence of changes in characteristic of pain. Patient Aox3 no distress no adventitious breath sounds sin intact full ROM, ambulating with cane - spinal stenosis plan: ibuprofen 400 mg PRN educated patient on proper body mechanics and use of cane follow up with PCP for ortho referral , patient verbalizes understanding continue to monitor
--- NOTE | 2017-10-03 17:41 | PN ---
S Progress Note Note: Vital Signs Temperature 97.5 F L 10/03/17 06:54 Pulse Rate 72 10/03/17 10:00 Respiratory Rate 19 10/03/17 06:54 Blood Pressure 146/84 10/03/17 10:00 O2 Sat by Pulse Oximetry (%) reports no relief with current ibuprofen dose of 400mg reports receives 800mg outpatient dose increase to 800 mg PRN continue to monitor
[2017-10-03] MEDS: THIAMINE HCL 100 MG TABLET (FP) PO SCH (21:32)
[2017-10-03] MEDS: ATORVASTATIN CA 20 MG TABLET (FP) PO SCH (21:32)
[2017-10-03] MEDS: IBUPROFEN 400 MG TABLET (FP) PO PRN (21:32)
[2017-10-03] MEDS: LIDOCAINE PATCH REMOVAL MC SCH (21:32)
[2017-10-04] MEDS: metFORMIN HCL 500 MG TABLET (FP) PO SCH ×2 (06:37→16:53)
[2017-10-04] MEDS: NICOTINE POLACRILEX 2 MG GUM BUC PRN ×4 (06:38→21:43)
[2017-10-04] MEDS: amLODIPine BESYLATE 10 MG TABLET (FP) PO SCH (10:30)
[2017-10-04] MEDS: PRENATAL VITAMINS W/ FOLIC ACID TABLET (FP) PO SCH (10:30)
[2017-10-04] MEDS: NICOTINE 14 MG/24 HOURS TOPICAL PATCH TD SCH (10:30)
[2017-10-04] MEDS: ATENOLOL 50 MG TABLET (FP) PO SCH (10:30)
[2017-10-04] MEDS: HYDROCHLOROTHIAZIDE 25 MG TABLET (FP) PO SCH (10:30)
[2017-10-04] MEDS: risperiDONE 2 MG TABLET PO SCH (10:30)
[2017-10-04] MEDS: ASPIRIN COATED 81 MG TABLET.EC PO SCH (10:30)
[2017-10-04] MEDS: BACLOFEN 10 MG TABLET (FP) PO SCH ×2 (10:30→21:41)
[2017-10-04] MEDS: IBUPROFEN 400 MG TABLET (FP) PO PRN ×3 (10:31→21:42)
[2017-10-04] MEDS: LIDOCAINE 5% TOPICAL PATCH TP SCH (10:33)
[2017-10-04] MEDS ORDERED: COLLOIDAL OATMEAL 1 BAR EACH TP PRN (13:23)
[2017-10-04] MEDS: LIDOCAINE PATCH REMOVAL MC SCH (21:41)
[2017-10-04] MEDS: THIAMINE HCL 100 MG TABLET (FP) PO SCH (21:41)
[2017-10-04] MEDS: ATORVASTATIN CA 20 MG TABLET (FP) PO SCH (21:41)
[2017-10-05] MEDS: metFORMIN HCL 500 MG TABLET (FP) PO SCH ×2 (06:37→16:34)
[2017-10-05] MEDS: NICOTINE POLACRILEX 2 MG GUM BUC PRN ×5 (06:38→21:25)
[2017-10-05] MEDS: risperiDONE 2 MG TABLET PO SCH (10:23)
[2017-10-05] MEDS: HYDROCHLOROTHIAZIDE 25 MG TABLET (FP) PO SCH (10:23)
[2017-10-05] MEDS: ASPIRIN COATED 81 MG TABLET.EC PO SCH (10:23)
[2017-10-05] MEDS: amLODIPine BESYLATE 10 MG TABLET (FP) PO SCH (10:23)
[2017-10-05] MEDS: ATENOLOL 50 MG TABLET (FP) PO SCH (10:23)
[2017-10-05] MEDS: OMEGA-3 ACID ETHYL ESTERS (FATTY-ACIDS) 1 GM CAPSULE (FP) PO SCH (10:23)
[2017-10-05] MEDS: LIDOCAINE 5% TOPICAL PATCH TP SCH (10:25)
[2017-10-05] MEDS: BACLOFEN 10 MG TABLET (FP) PO SCH ×2 (10:25→21:23)
[2017-10-05] MEDS: NICOTINE 14 MG/24 HOURS TOPICAL PATCH TD SCH (10:25)
[2017-10-05] MEDS: IBUPROFEN 400 MG TABLET (FP) PO PRN ×2 (10:27→21:24)
[2017-10-05] MEDS: PRENATAL VITAMINS W/ FOLIC ACID TABLET (FP) PO SCH (11:09)
[2017-10-05] MEDS: ATORVASTATIN CA 20 MG TABLET (FP) PO SCH (21:23)
[2017-10-05] MEDS: THIAMINE HCL 100 MG TABLET (FP) PO SCH (21:23)
[2017-10-05] MEDS: LIDOCAINE PATCH REMOVAL MC SCH (21:25)
[2017-10-06] MEDS: metFORMIN HCL 500 MG TABLET (FP) PO SCH ×2 (06:16→16:50)
[2017-10-06] MEDS: NICOTINE POLACRILEX 2 MG GUM BUC PRN ×5 (06:16→21:24)
[2017-10-06] MEDS: amLODIPine BESYLATE 10 MG TABLET (FP) PO SCH (10:10)
[2017-10-06] MEDS: PRENATAL VITAMINS W/ FOLIC ACID TABLET (FP) PO SCH (10:10)
[2017-10-06] MEDS: HYDROCHLOROTHIAZIDE 25 MG TABLET (FP) PO SCH (10:10)
[2017-10-06] MEDS: risperiDONE 2 MG TABLET PO SCH (10:10)
[2017-10-06] MEDS: OMEGA-3 ACID ETHYL ESTERS (FATTY-ACIDS) 1 GM CAPSULE (FP) PO SCH (10:10)
[2017-10-06] MEDS: NICOTINE 14 MG/24 HOURS TOPICAL PATCH TD SCH (10:11)
[2017-10-06] MEDS: BACLOFEN 10 MG TABLET (FP) PO SCH ×2 (10:11→21:24)
[2017-10-06] MEDS: ATENOLOL 50 MG TABLET (FP) PO SCH (10:11)
[2017-10-06] MEDS: LIDOCAINE 5% TOPICAL PATCH TP SCH (10:12)
[2017-10-06] MEDS: ASPIRIN COATED 81 MG TABLET.EC PO SCH (10:12)
[2017-10-06] MEDS: IBUPROFEN 400 MG TABLET (FP) PO PRN ×2 (10:14→18:38)
[2017-10-06] MEDS: LIDOCAINE PATCH REMOVAL MC SCH (21:23)
[2017-10-06] MEDS: ATORVASTATIN CA 20 MG TABLET (FP) PO SCH (21:24)
[2017-10-06] MEDS: THIAMINE HCL 100 MG TABLET (FP) PO SCH (21:24)
[2017-10-07] MEDS: metFORMIN HCL 500 MG TABLET (FP) PO SCH ×2 (06:09→16:55)
[2017-10-07] MEDS: NICOTINE POLACRILEX 2 MG GUM BUC PRN ×5 (06:10→17:31)
[2017-10-07] MEDS: ASPIRIN COATED 81 MG TABLET.EC PO SCH (09:57)
[2017-10-07] MEDS: risperiDONE 2 MG TABLET PO SCH (09:57)
[2017-10-07] MEDS: amLODIPine BESYLATE 10 MG TABLET (FP) PO SCH (09:57)
[2017-10-07] MEDS: OMEGA-3 ACID ETHYL ESTERS (FATTY-ACIDS) 1 GM CAPSULE (FP) PO SCH (09:57)
[2017-10-07] MEDS: PRENATAL VITAMINS W/ FOLIC ACID TABLET (FP) PO SCH (09:57)
[2017-10-07] MEDS: ATENOLOL 50 MG TABLET (FP) PO SCH (09:57)
[2017-10-07] MEDS: BACLOFEN 10 MG TABLET (FP) PO SCH ×2 (09:58→21:26)
[2017-10-07] MEDS: HYDROCHLOROTHIAZIDE 25 MG TABLET (FP) PO SCH (09:58)
[2017-10-07] MEDS: LIDOCAINE 5% TOPICAL PATCH TP SCH (10:00)
[2017-10-07] MEDS: NICOTINE 14 MG/24 HOURS TOPICAL PATCH TD SCH (10:00)
[2017-10-07] MEDS: IBUPROFEN 400 MG TABLET (FP) PO PRN ×2 (10:01→21:26)
[2017-10-07] MEDS: ATORVASTATIN CA 20 MG TABLET (FP) PO SCH (21:26)
[2017-10-07] MEDS: THIAMINE HCL 100 MG TABLET (FP) PO SCH (21:26)
[2017-10-07] MEDS: LIDOCAINE PATCH REMOVAL MC SCH (21:27)
[2017-10-08] MEDS: NICOTINE POLACRILEX 2 MG GUM BUC PRN ×5 (06:13→21:44)
[2017-10-08] MEDS: metFORMIN HCL 500 MG TABLET (FP) PO SCH ×2 (07:13→16:50)
[2017-10-08] MEDS: HYDROCHLOROTHIAZIDE 25 MG TABLET (FP) PO SCH (10:36)
[2017-10-08] MEDS: PRENATAL VITAMINS W/ FOLIC ACID TABLET (FP) PO SCH (10:36)
[2017-10-08] MEDS: ASPIRIN COATED 81 MG TABLET.EC PO SCH (10:36)
[2017-10-08] MEDS: amLODIPine BESYLATE 10 MG TABLET (FP) PO SCH (10:36)
[2017-10-08] MEDS: ATENOLOL 50 MG TABLET (FP) PO SCH (10:37)
[2017-10-08] MEDS: NICOTINE 14 MG/24 HOURS TOPICAL PATCH TD SCH (10:37)
[2017-10-08] MEDS: risperiDONE 2 MG TABLET PO SCH (10:37)
[2017-10-08] MEDS: BACLOFEN 10 MG TABLET (FP) PO SCH ×2 (10:37→21:42)
[2017-10-08] MEDS: OMEGA-3 ACID ETHYL ESTERS (FATTY-ACIDS) 1 GM CAPSULE (FP) PO SCH (10:37)
[2017-10-08] MEDS: LIDOCAINE 5% TOPICAL PATCH TP SCH (10:38)
[2017-10-08] MEDS: IBUPROFEN 400 MG TABLET (FP) PO PRN ×2 (10:40→21:42)
[2017-10-08] MEDS: ATORVASTATIN CA 20 MG TABLET (FP) PO SCH (21:42)
[2017-10-08] MEDS: THIAMINE HCL 100 MG TABLET (FP) PO SCH (21:42)
[2017-10-08] MEDS: LIDOCAINE PATCH REMOVAL MC SCH (21:44)
[2017-10-09] MEDS: metFORMIN HCL 500 MG TABLET (FP) PO SCH ×2 (06:01→16:53)
[2017-10-09] MEDS: NICOTINE POLACRILEX 2 MG GUM BUC PRN ×6 (06:02→21:29)
[2017-10-09] MEDS: ATENOLOL 50 MG TABLET (FP) PO SCH (10:01)
[2017-10-09] MEDS: PRENATAL VITAMINS W/ FOLIC ACID TABLET (FP) PO SCH (10:01)
[2017-10-09] MEDS: HYDROCHLOROTHIAZIDE 25 MG TABLET (FP) PO SCH (10:02)
[2017-10-09] MEDS: risperiDONE 2 MG TABLET PO SCH (10:02)
[2017-10-09] MEDS: BACLOFEN 10 MG TABLET (FP) PO SCH ×2 (10:02→21:29)
[2017-10-09] MEDS: amLODIPine BESYLATE 10 MG TABLET (FP) PO SCH (10:02)
[2017-10-09] MEDS: LIDOCAINE 5% TOPICAL PATCH TP SCH (10:03)
[2017-10-09] MEDS: NICOTINE 14 MG/24 HOURS TOPICAL PATCH TD SCH (10:03)
[2017-10-09] MEDS: OMEGA-3 ACID ETHYL ESTERS (FATTY-ACIDS) 1 GM CAPSULE (FP) PO SCH (10:04)
[2017-10-09] MEDS: ASPIRIN COATED 81 MG TABLET.EC PO SCH (10:04)
[2017-10-09] MEDS: IBUPROFEN 400 MG TABLET (FP) PO PRN ×2 (10:05→21:30)
[2017-10-09] MEDS: THIAMINE HCL 100 MG TABLET (FP) PO SCH (21:29)
[2017-10-09] MEDS: ATORVASTATIN CA 20 MG TABLET (FP) PO SCH (21:29)
[2017-10-09] MEDS: LIDOCAINE PATCH REMOVAL MC SCH (21:29)
[2017-10-10] MEDS: metFORMIN HCL 500 MG TABLET (FP) PO SCH ×2 (06:05→16:57)
[2017-10-10] MEDS: NICOTINE POLACRILEX 2 MG GUM BUC PRN ×5 (06:05→19:34)
[2017-10-10] MEDS: IBUPROFEN 400 MG TABLET (FP) PO PRN ×2 (08:34→17:25)
[2017-10-10] MEDS: NICOTINE 14 MG/24 HOURS TOPICAL PATCH TD SCH (10:10)
[2017-10-10] MEDS: risperiDONE 2 MG TABLET PO SCH (10:10)
[2017-10-10] MEDS: PRENATAL VITAMINS W/ FOLIC ACID TABLET (FP) PO SCH (10:10)
[2017-10-10] MEDS: OMEGA-3 ACID ETHYL ESTERS (FATTY-ACIDS) 1 GM CAPSULE (FP) PO SCH (10:11)
[2017-10-10] MEDS: amLODIPine BESYLATE 10 MG TABLET (FP) PO SCH (10:11)
[2017-10-10] MEDS: ATENOLOL 50 MG TABLET (FP) PO SCH (10:11)
[2017-10-10] MEDS: LIDOCAINE 5% TOPICAL PATCH TP SCH (10:11)
[2017-10-10] MEDS: BACLOFEN 10 MG TABLET (FP) PO SCH ×2 (10:11→21:28)
[2017-10-10] MEDS: HYDROCHLOROTHIAZIDE 25 MG TABLET (FP) PO SCH (10:11)
[2017-10-10] MEDS: ASPIRIN COATED 81 MG TABLET.EC PO SCH (10:11)
[2017-10-10] MEDS: THIAMINE HCL 100 MG TABLET (FP) PO SCH (21:28)
[2017-10-10] MEDS: ATORVASTATIN CA 20 MG TABLET (FP) PO SCH (21:28)
[2017-10-10] MEDS: LIDOCAINE PATCH REMOVAL MC SCH (21:28)
[2017-10-11] MEDS: NICOTINE POLACRILEX 2 MG GUM BUC PRN ×7 (06:07→21:37)
[2017-10-11] MEDS: metFORMIN HCL 500 MG TABLET (FP) PO SCH ×2 (06:07→17:02)
[2017-10-11] MEDS: OMEGA-3 ACID ETHYL ESTERS (FATTY-ACIDS) 1 GM CAPSULE (FP) PO SCH (10:11)
[2017-10-11] MEDS: BACLOFEN 10 MG TABLET (FP) PO SCH ×2 (10:11→21:35)
[2017-10-11] MEDS: risperiDONE 2 MG TABLET PO SCH (10:11)
[2017-10-11] MEDS: ATENOLOL 50 MG TABLET (FP) PO SCH (10:12)
[2017-10-11] MEDS: PRENATAL VITAMINS W/ FOLIC ACID TABLET (FP) PO SCH (10:12)
[2017-10-11] MEDS: ASPIRIN COATED 81 MG TABLET.EC PO SCH (10:12)
[2017-10-11] MEDS: amLODIPine BESYLATE 10 MG TABLET (FP) PO SCH (10:13)
[2017-10-11] MEDS: HYDROCHLOROTHIAZIDE 25 MG TABLET (FP) PO SCH (10:13)
[2017-10-11] MEDS: IBUPROFEN 400 MG TABLET (FP) PO PRN ×2 (10:14→21:36)
[2017-10-11] MEDS: LIDOCAINE 5% TOPICAL PATCH TP SCH (10:18)
[2017-10-11] MEDS: NICOTINE 14 MG/24 HOURS TOPICAL PATCH TD SCH (10:57)
[2017-10-11] MEDS: THIAMINE HCL 100 MG TABLET (FP) PO SCH (21:35)
[2017-10-11] MEDS: ATORVASTATIN CA 20 MG TABLET (FP) PO SCH (21:35)
[2017-10-11] MEDS: LIDOCAINE PATCH REMOVAL MC SCH (22:01)
[2017-10-12] MEDS: metFORMIN HCL 500 MG TABLET (FP) PO SCH ×2 (06:01→16:39)
[2017-10-12] MEDS: NICOTINE POLACRILEX 2 MG GUM BUC PRN ×4 (06:02→21:27)
[2017-10-12] MEDS: BACLOFEN 10 MG TABLET (FP) PO SCH ×2 (10:13→21:26)
[2017-10-12] MEDS: ASPIRIN COATED 81 MG TABLET.EC PO SCH (10:13)
[2017-10-12] MEDS: risperiDONE 2 MG TABLET PO SCH (10:13)
[2017-10-12] MEDS: ATENOLOL 50 MG TABLET (FP) PO SCH (10:13)
[2017-10-12] MEDS: PRENATAL VITAMINS W/ FOLIC ACID TABLET (FP) PO SCH (10:13)
[2017-10-12] MEDS: amLODIPine BESYLATE 10 MG TABLET (FP) PO SCH (10:13)
[2017-10-12] MEDS: HYDROCHLOROTHIAZIDE 25 MG TABLET (FP) PO SCH (10:13)
[2017-10-12] MEDS: OMEGA-3 ACID ETHYL ESTERS (FATTY-ACIDS) 1 GM CAPSULE (FP) PO SCH (10:15)
[2017-10-12] MEDS: NICOTINE 14 MG/24 HOURS TOPICAL PATCH TD SCH (10:16)
[2017-10-12] MEDS: LIDOCAINE 5% TOPICAL PATCH TP SCH (10:16)
[2017-10-12] MEDS: IBUPROFEN 400 MG TABLET (FP) PO PRN (10:17)
--- NOTE | 2017-10-12 18:42 | PN ---
[facility] Progress Note (SOAP) Subjective: (R) foot is bleeding after I peeled some skin off. Objective: Alert and oriented. gait steady w/ use of a cane. Superficial laceration/abrasion approx 1 cm on bottom of (R) foot near heel. Minimal sero/sang grainage. No withdrawal symptoms. Vital Signs - 24 hr 10/12/17 10/12/17 10/12/17 00:30 03:30 06:54 Temperature 98.2 F Pulse Rate 84 Respiratory 18 18 18 Rate Blood Pressure 132/79 10/12/17 10:00 Temperature Pulse Rate 71 Respiratory Rate Blood Pressure 138/86 Assessment: (R) foot abrasion/laceration. Plan: Bacitracin BID. Continue rehab.
[2017-10-12] MEDS: BACITRACIN 0.9 GM PACKET TP SCH (21:26)
[2017-10-12] MEDS: THIAMINE HCL 100 MG TABLET (FP) PO SCH (21:26)
[2017-10-12] MEDS: ATORVASTATIN CA 20 MG TABLET (FP) PO SCH (21:26)
[2017-10-12] MEDS: LIDOCAINE PATCH REMOVAL MC SCH (21:26)
[2017-10-13] MEDS: metFORMIN HCL 500 MG TABLET (FP) PO SCH ×2 (06:09→16:58)
[2017-10-13] MEDS: NICOTINE POLACRILEX 2 MG GUM BUC PRN ×6 (06:11→21:42)
[2017-10-13] MEDS: OMEGA-3 ACID ETHYL ESTERS (FATTY-ACIDS) 1 GM CAPSULE (FP) PO SCH (10:10)
[2017-10-13] MEDS: amLODIPine BESYLATE 10 MG TABLET (FP) PO SCH (10:10)
[2017-10-13] MEDS: ASPIRIN COATED 81 MG TABLET.EC PO SCH (10:10)
[2017-10-13] MEDS: PRENATAL VITAMINS W/ FOLIC ACID TABLET (FP) PO SCH (10:10)
[2017-10-13] MEDS: IBUPROFEN 400 MG TABLET (FP) PO PRN ×2 (10:11→21:42)
[2017-10-13] MEDS: HYDROCHLOROTHIAZIDE 25 MG TABLET (FP) PO SCH (10:11)
[2017-10-13] MEDS: BACITRACIN 0.9 GM PACKET TP SCH ×2 (10:11→21:39)
[2017-10-13] MEDS: BACLOFEN 10 MG TABLET (FP) PO SCH ×2 (10:11→21:40)
[2017-10-13] MEDS: risperiDONE 2 MG TABLET PO SCH (10:11)
[2017-10-13] MEDS: ATENOLOL 50 MG TABLET (FP) PO SCH (10:11)
[2017-10-13] MEDS: LIDOCAINE 5% TOPICAL PATCH TP SCH (10:14)
[2017-10-13] MEDS: NICOTINE 14 MG/24 HOURS TOPICAL PATCH TD SCH (10:35)
[2017-10-13] MEDS: THIAMINE HCL 100 MG TABLET (FP) PO SCH (21:40)
[2017-10-13] MEDS: LIDOCAINE PATCH REMOVAL MC SCH (21:40)
[2017-10-13] MEDS: ATORVASTATIN CA 20 MG TABLET (FP) PO SCH (21:40)
[2017-10-14] MEDS: metFORMIN HCL 500 MG TABLET (FP) PO SCH ×2 (06:00→16:43)
[2017-10-14] MEDS: NICOTINE POLACRILEX 2 MG GUM BUC PRN ×5 (06:01→21:39)
[2017-10-14] MEDS: ASPIRIN COATED 81 MG TABLET.EC PO SCH (10:03)
[2017-10-14] MEDS: OMEGA-3 ACID ETHYL ESTERS (FATTY-ACIDS) 1 GM CAPSULE (FP) PO SCH (10:03)
[2017-10-14] MEDS: risperiDONE 2 MG TABLET PO SCH (10:04)
[2017-10-14] MEDS: ATENOLOL 50 MG TABLET (FP) PO SCH (10:04)
[2017-10-14] MEDS: BACLOFEN 10 MG TABLET (FP) PO SCH ×2 (10:04→21:36)
[2017-10-14] MEDS: LIDOCAINE 5% TOPICAL PATCH TP SCH (10:04)
[2017-10-14] MEDS: HYDROCHLOROTHIAZIDE 25 MG TABLET (FP) PO SCH (10:04)
[2017-10-14] MEDS: PRENATAL VITAMINS W/ FOLIC ACID TABLET (FP) PO SCH (10:04)
[2017-10-14] MEDS: BACITRACIN 0.9 GM PACKET TP SCH ×2 (10:04→21:36)
[2017-10-14] MEDS: NICOTINE 14 MG/24 HOURS TOPICAL PATCH TD SCH (10:04)
[2017-10-14] MEDS: amLODIPine BESYLATE 10 MG TABLET (FP) PO SCH (10:04)
[2017-10-14] MEDS: IBUPROFEN 400 MG TABLET (FP) PO PRN ×2 (10:06→21:38)
[2017-10-14] MEDS: ATORVASTATIN CA 20 MG TABLET (FP) PO SCH (21:36)
[2017-10-14] MEDS: THIAMINE HCL 100 MG TABLET (FP) PO SCH (21:37)
[2017-10-14] MEDS: LIDOCAINE PATCH REMOVAL MC SCH (23:11)
[2017-10-15] MEDS: metFORMIN HCL 500 MG TABLET (FP) PO SCH ×2 (06:30→16:45)
[2017-10-15] MEDS: NICOTINE POLACRILEX 2 MG GUM BUC PRN ×6 (06:31→21:44)
[2017-10-15] MEDS: BACITRACIN 0.9 GM PACKET TP SCH ×2 (09:56→21:42)
[2017-10-15] MEDS: OMEGA-3 ACID ETHYL ESTERS (FATTY-ACIDS) 1 GM CAPSULE (FP) PO SCH (09:57)
[2017-10-15] MEDS: HYDROCHLOROTHIAZIDE 25 MG TABLET (FP) PO SCH (09:57)
[2017-10-15] MEDS: LIDOCAINE 5% TOPICAL PATCH TP SCH (09:57)
[2017-10-15] MEDS: amLODIPine BESYLATE 10 MG TABLET (FP) PO SCH (09:57)
[2017-10-15] MEDS: ATENOLOL 50 MG TABLET (FP) PO SCH (09:57)
[2017-10-15] MEDS: risperiDONE 2 MG TABLET PO SCH (09:57)
[2017-10-15] MEDS: ASPIRIN COATED 81 MG TABLET.EC PO SCH (09:57)
[2017-10-15] MEDS: BACLOFEN 10 MG TABLET (FP) PO SCH ×2 (09:57→21:42)
[2017-10-15] MEDS: PRENATAL VITAMINS W/ FOLIC ACID TABLET (FP) PO SCH (09:58)
[2017-10-15] MEDS: NICOTINE 14 MG/24 HOURS TOPICAL PATCH TD SCH (09:58)
[2017-10-15] MEDS: IBUPROFEN 400 MG TABLET (FP) PO PRN ×2 (09:59→21:42)
[2017-10-15] MEDS: THIAMINE HCL 100 MG TABLET (FP) PO SCH (21:42)
[2017-10-15] MEDS: ATORVASTATIN CA 20 MG TABLET (FP) PO SCH (21:42)
[2017-10-15] MEDS: LIDOCAINE PATCH REMOVAL MC SCH (21:46)
[2017-10-16] MEDS: metFORMIN HCL 500 MG TABLET (FP) PO SCH ×2 (06:42→17:01)
[2017-10-16] MEDS: PRENATAL VITAMINS W/ FOLIC ACID TABLET (FP) PO SCH (10:33)
[2017-10-16] MEDS: OMEGA-3 ACID ETHYL ESTERS (FATTY-ACIDS) 1 GM CAPSULE (FP) PO SCH (10:33)
[2017-10-16] MEDS: BACITRACIN 0.9 GM PACKET TP SCH ×2 (10:33→21:29)
[2017-10-16] MEDS: risperiDONE 2 MG TABLET PO SCH (10:34)
[2017-10-16] MEDS: HYDROCHLOROTHIAZIDE 25 MG TABLET (FP) PO SCH (10:34)
[2017-10-16] MEDS: BACLOFEN 10 MG TABLET (FP) PO SCH ×2 (10:34→21:29)
[2017-10-16] MEDS: amLODIPine BESYLATE 10 MG TABLET (FP) PO SCH (10:35)
[2017-10-16] MEDS: NICOTINE 14 MG/24 HOURS TOPICAL PATCH TD SCH (10:42)
[2017-10-16] MEDS: IBUPROFEN 400 MG TABLET (FP) PO PRN ×2 (10:43→21:29)
[2017-10-16] MEDS: LIDOCAINE 5% TOPICAL PATCH TP SCH (10:43)
[2017-10-16] MEDS: ATENOLOL 50 MG TABLET (FP) PO SCH (10:44)
[2017-10-16] MEDS: NICOTINE POLACRILEX 2 MG GUM BUC PRN ×5 (10:44→21:31)
[2017-10-16] MEDS: ASPIRIN COATED 81 MG TABLET.EC PO SCH (10:45)
[2017-10-16] MEDS: THIAMINE HCL 100 MG TABLET (FP) PO SCH (21:29)
[2017-10-16] MEDS: ATORVASTATIN CA 20 MG TABLET (FP) PO SCH (21:29)
[2017-10-16] MEDS: LIDOCAINE PATCH REMOVAL MC SCH (21:30)
[2017-10-17] MEDS: metFORMIN HCL 500 MG TABLET (FP) PO SCH ×2 (06:06→17:10)
[2017-10-17] MEDS: NICOTINE POLACRILEX 2 MG GUM BUC PRN ×5 (06:07→21:36)
[2017-10-17] MEDS: PRENATAL VITAMINS W/ FOLIC ACID TABLET (FP) PO SCH (10:05)
[2017-10-17] MEDS: ATENOLOL 50 MG TABLET (FP) PO SCH (10:06)
[2017-10-17] MEDS: amLODIPine BESYLATE 10 MG TABLET (FP) PO SCH (10:07)
[2017-10-17] MEDS: NICOTINE 14 MG/24 HOURS TOPICAL PATCH TD SCH (10:07)
[2017-10-17] MEDS: HYDROCHLOROTHIAZIDE 25 MG TABLET (FP) PO SCH (10:07)
[2017-10-17] MEDS: OMEGA-3 ACID ETHYL ESTERS (FATTY-ACIDS) 1 GM CAPSULE (FP) PO SCH (10:07)
[2017-10-17] MEDS: BACITRACIN 0.9 GM PACKET TP SCH ×2 (10:07→21:33)
[2017-10-17] MEDS: ASPIRIN COATED 81 MG TABLET.EC PO SCH (10:07)
[2017-10-17] MEDS: risperiDONE 2 MG TABLET PO SCH (10:07)
[2017-10-17] MEDS: BACLOFEN 10 MG TABLET (FP) PO SCH ×2 (10:07→21:34)
[2017-10-17] MEDS: IBUPROFEN 400 MG TABLET (FP) PO PRN ×2 (10:08→21:33)
[2017-10-17] MEDS: LIDOCAINE 5% TOPICAL PATCH TP SCH (10:10)
[2017-10-17] MEDS: ATORVASTATIN CA 20 MG TABLET (FP) PO SCH (21:34)
[2017-10-17] MEDS: THIAMINE HCL 100 MG TABLET (FP) PO SCH (21:34)
[2017-10-17] MEDS: LIDOCAINE PATCH REMOVAL MC SCH (21:34)
[2017-10-18] MEDS: metFORMIN HCL 500 MG TABLET (FP) PO SCH ×2 (06:23→16:47)
[2017-10-18] MEDS: amLODIPine BESYLATE 10 MG TABLET (FP) PO SCH (09:58)
[2017-10-18] MEDS: ATENOLOL 50 MG TABLET (FP) PO SCH (09:58)
[2017-10-18] MEDS: BACLOFEN 10 MG TABLET (FP) PO SCH ×2 (09:58→21:19)
[2017-10-18] MEDS: OMEGA-3 ACID ETHYL ESTERS (FATTY-ACIDS) 1 GM CAPSULE (FP) PO SCH (09:58)
[2017-10-18] MEDS: BACITRACIN 0.9 GM PACKET TP SCH ×2 (09:58→21:19)
[2017-10-18] MEDS: PRENATAL VITAMINS W/ FOLIC ACID TABLET (FP) PO SCH (09:58)
[2017-10-18] MEDS: ASPIRIN COATED 81 MG TABLET.EC PO SCH (09:58)
[2017-10-18] MEDS: risperiDONE 2 MG TABLET PO SCH (09:58)
[2017-10-18] MEDS: HYDROCHLOROTHIAZIDE 25 MG TABLET (FP) PO SCH (09:58)
[2017-10-18] MEDS: LIDOCAINE 5% TOPICAL PATCH TP SCH (09:59)
[2017-10-18] MEDS: NICOTINE POLACRILEX 2 MG GUM BUC PRN ×5 (09:59→21:20)
[2017-10-18] MEDS: IBUPROFEN 400 MG TABLET (FP) PO PRN ×2 (09:59→21:20)
[2017-10-18] MEDS: NICOTINE 14 MG/24 HOURS TOPICAL PATCH TD SCH (09:59)
[2017-10-18] MEDS: THIAMINE HCL 100 MG TABLET (FP) PO SCH (21:19)
[2017-10-18] MEDS: ATORVASTATIN CA 20 MG TABLET (FP) PO SCH (21:19)
[2017-10-18] MEDS: LIDOCAINE PATCH REMOVAL MC SCH (21:19)
[2017-10-19] MEDS: NICOTINE POLACRILEX 2 MG GUM BUC PRN ×3 (06:13→13:37)
[2017-10-19] MEDS: metFORMIN HCL 500 MG TABLET (FP) PO SCH ×2 (06:13→16:56)
[2017-10-19] MEDS: PRENATAL VITAMINS W/ FOLIC ACID TABLET (FP) PO SCH (10:34)
[2017-10-19] MEDS: HYDROCHLOROTHIAZIDE 25 MG TABLET (FP) PO SCH (10:35)
[2017-10-19] MEDS: BACLOFEN 10 MG TABLET (FP) PO SCH ×2 (10:35→22:14)
[2017-10-19] MEDS: ASPIRIN COATED 81 MG TABLET.EC PO SCH (10:35)
[2017-10-19] MEDS: ATENOLOL 50 MG TABLET (FP) PO SCH (10:35)
[2017-10-19] MEDS: amLODIPine BESYLATE 10 MG TABLET (FP) PO SCH (10:35)
[2017-10-19] MEDS: OMEGA-3 ACID ETHYL ESTERS (FATTY-ACIDS) 1 GM CAPSULE (FP) PO SCH (10:35)
[2017-10-19] MEDS: risperiDONE 2 MG TABLET PO SCH (10:36)
[2017-10-19] MEDS: IBUPROFEN 400 MG TABLET (FP) PO PRN ×2 (10:38→22:16)
[2017-10-19] MEDS: LIDOCAINE 5% TOPICAL PATCH TP SCH (10:40)
[2017-10-19] MEDS: BACITRACIN 0.9 GM PACKET TP SCH ×2 (11:10→22:14)
[2017-10-19] MEDS: NICOTINE 14 MG/24 HOURS TOPICAL PATCH TD SCH (11:11)
[2017-10-19] MEDS: THIAMINE HCL 100 MG TABLET (FP) PO SCH (22:14)
[2017-10-19] MEDS: ATORVASTATIN CA 20 MG TABLET (FP) PO SCH (22:14)
[2017-10-19] MEDS: LIDOCAINE PATCH REMOVAL MC SCH (22:17)
[2017-10-20] MEDS: metFORMIN HCL 500 MG TABLET (FP) PO SCH ×2 (06:12→16:57)
[2017-10-20] MEDS: NICOTINE POLACRILEX 2 MG GUM BUC PRN ×5 (06:12→21:46)
[2017-10-20] MEDS: BACITRACIN 0.9 GM PACKET TP SCH ×2 (10:14→21:44)
[2017-10-20] MEDS: PRENATAL VITAMINS W/ FOLIC ACID TABLET (FP) PO SCH (10:14)
[2017-10-20] MEDS: amLODIPine BESYLATE 10 MG TABLET (FP) PO SCH (10:14)
[2017-10-20] MEDS: risperiDONE 2 MG TABLET PO SCH (10:15)
[2017-10-20] MEDS: HYDROCHLOROTHIAZIDE 25 MG TABLET (FP) PO SCH (10:15)
[2017-10-20] MEDS: ATENOLOL 50 MG TABLET (FP) PO SCH (10:15)
[2017-10-20] MEDS: BACLOFEN 10 MG TABLET (FP) PO SCH ×2 (10:15→21:44)
[2017-10-20] MEDS: IBUPROFEN 400 MG TABLET (FP) PO PRN ×2 (10:15→21:45)
[2017-10-20] MEDS: OMEGA-3 ACID ETHYL ESTERS (FATTY-ACIDS) 1 GM CAPSULE (FP) PO SCH (10:15)
[2017-10-20] MEDS: LIDOCAINE 5% TOPICAL PATCH TP SCH (10:15)
[2017-10-20] MEDS: ASPIRIN COATED 81 MG TABLET.EC PO SCH (10:15)
[2017-10-20] MEDS: NICOTINE 14 MG/24 HOURS TOPICAL PATCH TD SCH (10:16)
--- NOTE | 2017-10-20 10:49 | PN ---
S Progress Note Note: Vital Signs Temperature 98.9 F 10/20/17 07:15 Pulse Rate 76 10/20/17 07:15 Respiratory Rate 18 10/20/17 07:15 Blood Pressure 132/81 10/20/17 07:15 O2 Sat by Pulse Oximetry (%) Patient currently on NRT for nicotine cravings on nicotine gum 2 mg , patient requested dose increase from 2 mg to 4 mg. Dose adjusted as per patient request . Continue to monitor
[2017-10-20] MEDS: THIAMINE HCL 100 MG TABLET (FP) PO SCH (21:44)
[2017-10-20] MEDS: ATORVASTATIN CA 20 MG TABLET (FP) PO SCH (21:44)
[2017-10-20] MEDS: LIDOCAINE PATCH REMOVAL MC SCH (21:46)
[2017-10-21] MEDS: metFORMIN HCL 500 MG TABLET (FP) PO SCH ×2 (06:28→17:03)
[2017-10-21] MEDS: BACLOFEN 10 MG TABLET (FP) PO SCH ×2 (10:09→21:47)
[2017-10-21] MEDS: amLODIPine BESYLATE 10 MG TABLET (FP) PO SCH (10:09)
[2017-10-21] MEDS: OMEGA-3 ACID ETHYL ESTERS (FATTY-ACIDS) 1 GM CAPSULE (FP) PO SCH (10:09)
[2017-10-21] MEDS: risperiDONE 2 MG TABLET PO SCH (10:09)
[2017-10-21] MEDS: ATENOLOL 50 MG TABLET (FP) PO SCH (10:09)
[2017-10-21] MEDS: PRENATAL VITAMINS W/ FOLIC ACID TABLET (FP) PO SCH (10:09)
[2017-10-21] MEDS: ASPIRIN COATED 81 MG TABLET.EC PO SCH (10:09)
[2017-10-21] MEDS: HYDROCHLOROTHIAZIDE 25 MG TABLET (FP) PO SCH (10:09)
[2017-10-21] MEDS: BACITRACIN 0.9 GM PACKET TP SCH ×2 (10:09→22:10)
[2017-10-21] MEDS: LIDOCAINE 5% TOPICAL PATCH TP SCH (10:10)
[2017-10-21] MEDS: IBUPROFEN 400 MG TABLET (FP) PO PRN ×2 (10:11→21:48)
[2017-10-21] MEDS: NICOTINE 14 MG/24 HOURS TOPICAL PATCH TD SCH (10:14)
[2017-10-21] MEDS: NICOTINE POLACRILEX 2 MG GUM BUC PRN ×4 (14:34→21:47)
[2017-10-21] MEDS: ATORVASTATIN CA 20 MG TABLET (FP) PO SCH (21:47)
[2017-10-21] MEDS: THIAMINE HCL 100 MG TABLET (FP) PO SCH (21:47)
[2017-10-21] MEDS: LIDOCAINE PATCH REMOVAL MC SCH (21:49)
[2017-10-22] MEDS: metFORMIN HCL 500 MG TABLET (FP) PO SCH ×2 (06:03→16:59)
[2017-10-22] MEDS: NICOTINE POLACRILEX 2 MG GUM BUC PRN ×6 (06:03→19:50)
[2017-10-22] MEDS: BACITRACIN 0.9 GM PACKET TP SCH ×2 (10:29→21:50)
[2017-10-22] MEDS: LIDOCAINE 5% TOPICAL PATCH TP SCH (10:29)
[2017-10-22] MEDS: OMEGA-3 ACID ETHYL ESTERS (FATTY-ACIDS) 1 GM CAPSULE (FP) PO SCH (10:29)
[2017-10-22] MEDS: PRENATAL VITAMINS W/ FOLIC ACID TABLET (FP) PO SCH (10:29)
[2017-10-22] MEDS: HYDROCHLOROTHIAZIDE 25 MG TABLET (FP) PO SCH (10:29)
[2017-10-22] MEDS: amLODIPine BESYLATE 10 MG TABLET (FP) PO SCH (10:29)
[2017-10-22] MEDS: ASPIRIN COATED 81 MG TABLET.EC PO SCH (10:29)
[2017-10-22] MEDS: ATENOLOL 50 MG TABLET (FP) PO SCH (10:30)
[2017-10-22] MEDS: NICOTINE 14 MG/24 HOURS TOPICAL PATCH TD SCH (10:30)
[2017-10-22] MEDS: risperiDONE 2 MG TABLET PO SCH (10:30)
[2017-10-22] MEDS: BACLOFEN 10 MG TABLET (FP) PO SCH ×2 (10:30→21:49)
[2017-10-22] MEDS: ATORVASTATIN CA 20 MG TABLET (FP) PO SCH (21:49)
[2017-10-22] MEDS: LIDOCAINE PATCH REMOVAL MC SCH (21:49)
[2017-10-22] MEDS: THIAMINE HCL 100 MG TABLET (FP) PO SCH (21:49)
[2017-10-23] MEDS: metFORMIN HCL 500 MG TABLET (FP) PO SCH ×2 (06:06→16:53)
[2017-10-23] MEDS: NICOTINE POLACRILEX 2 MG GUM BUC PRN ×5 (06:08→19:59)
[2017-10-23] MEDS: risperiDONE 2 MG TABLET PO SCH (10:30)
[2017-10-23] MEDS: PRENATAL VITAMINS W/ FOLIC ACID TABLET (FP) PO SCH (10:30)
[2017-10-23] MEDS: HYDROCHLOROTHIAZIDE 25 MG TABLET (FP) PO SCH (10:30)
[2017-10-23] MEDS: BACLOFEN 10 MG TABLET (FP) PO SCH ×2 (10:30→21:36)
[2017-10-23] MEDS: ASPIRIN COATED 81 MG TABLET.EC PO SCH (10:30)
[2017-10-23] MEDS: BACITRACIN 0.9 GM PACKET TP SCH ×2 (10:30→21:36)
[2017-10-23] MEDS: LIDOCAINE 5% TOPICAL PATCH TP SCH (10:30)
[2017-10-23] MEDS: ATENOLOL 50 MG TABLET (FP) PO SCH (10:30)
[2017-10-23] MEDS: NICOTINE 14 MG/24 HOURS TOPICAL PATCH TD SCH (10:30)
[2017-10-23] MEDS: OMEGA-3 ACID ETHYL ESTERS (FATTY-ACIDS) 1 GM CAPSULE (FP) PO SCH (10:30)
[2017-10-23] MEDS: amLODIPine BESYLATE 10 MG TABLET (FP) PO SCH (10:30)
[2017-10-23] MEDS: IBUPROFEN 400 MG TABLET (FP) PO PRN (10:32)
--- NOTE | 2017-10-23 13:05 | PN ---
[facility] Progress Note Note: Vital Signs Temperature 98.8 F 10/23/17 06:48 Pulse Rate 82 10/23/17 06:48 Respiratory Rate 18 10/23/17 06:48 Blood Pressure 136/85 10/23/17 06:48 O2 Sat by Pulse Oximetry (%) c/o back pain, refuses Ibuprofen for pain. reports in the past has taken felxeril with symptome reflief AOX3 no distress no adventitious breath sounds full ROM + back pain , ambulating with cane Simethicone PRN for flatulence flexeril PRN Tylenol prn lidocaine patch increase fluids ambulate continue to monitor
[2017-10-23] MEDS: CYCLOBENZAPRINE HCL 5 MG TABLET PO PRN (16:53)
[2017-10-23] MEDS: SIMETHICONE 80 MG TAB.CHEW (FP) PO PRN (16:53)
[2017-10-23] MEDS: ATORVASTATIN CA 20 MG TABLET (FP) PO SCH (21:36)
[2017-10-23] MEDS: LIDOCAINE PATCH REMOVAL MC SCH (21:36)
[2017-10-23] MEDS: THIAMINE HCL 100 MG TABLET (FP) PO SCH (21:36)
[2017-10-24] MEDS: metFORMIN HCL 500 MG TABLET (FP) PO SCH ×2 (06:09→17:02)
[2017-10-24] MEDS: NICOTINE POLACRILEX 2 MG GUM BUC PRN ×4 (06:10→21:37)
[2017-10-24] MEDS: PRENATAL VITAMINS W/ FOLIC ACID TABLET (FP) PO SCH (10:26)
[2017-10-24] MEDS: ATENOLOL 50 MG TABLET (FP) PO SCH (10:26)
[2017-10-24] MEDS: HYDROCHLOROTHIAZIDE 25 MG TABLET (FP) PO SCH (10:26)
[2017-10-24] MEDS: BACITRACIN 0.9 GM PACKET TP SCH ×2 (10:26→21:36)
[2017-10-24] MEDS: risperiDONE 2 MG TABLET PO SCH (10:26)
[2017-10-24] MEDS: ASPIRIN COATED 81 MG TABLET.EC PO SCH (10:26)
[2017-10-24] MEDS: amLODIPine BESYLATE 10 MG TABLET (FP) PO SCH (10:26)
[2017-10-24] MEDS: BACLOFEN 10 MG TABLET (FP) PO SCH ×2 (10:26→21:36)
[2017-10-24] MEDS: LIDOCAINE 5% TOPICAL PATCH TP SCH (10:26)
[2017-10-24] MEDS: SIMETHICONE 80 MG TAB.CHEW (FP) PO PRN (10:27)
[2017-10-24] MEDS: NICOTINE 14 MG/24 HOURS TOPICAL PATCH TD SCH (10:27)
[2017-10-24] MEDS: OMEGA-3 ACID ETHYL ESTERS (FATTY-ACIDS) 1 GM CAPSULE (FP) PO SCH (10:28)
[2017-10-24] MEDS: ATORVASTATIN CA 20 MG TABLET (FP) PO SCH (21:36)
[2017-10-24] MEDS: THIAMINE HCL 100 MG TABLET (FP) PO SCH (21:36)
[2017-10-24] MEDS: LIDOCAINE PATCH REMOVAL MC SCH (21:37)
[2017-10-25] MEDS: metFORMIN HCL 500 MG TABLET (FP) PO SCH ×2 (06:41→17:01)
[2017-10-25] MEDS: NICOTINE POLACRILEX 2 MG GUM BUC PRN ×6 (06:42→21:41)
[2017-10-25] MEDS: ASPIRIN COATED 81 MG TABLET.EC PO SCH (10:05)
[2017-10-25] MEDS: LIDOCAINE 5% TOPICAL PATCH TP SCH (10:28)
[2017-10-25] MEDS: PRENATAL VITAMINS W/ FOLIC ACID TABLET (FP) PO SCH (10:28)
[2017-10-25] MEDS: BACLOFEN 10 MG TABLET (FP) PO SCH ×2 (10:28→21:37)
[2017-10-25] MEDS: amLODIPine BESYLATE 10 MG TABLET (FP) PO SCH (10:28)
[2017-10-25] MEDS: ATENOLOL 50 MG TABLET (FP) PO SCH (10:28)
[2017-10-25] MEDS: OMEGA-3 ACID ETHYL ESTERS (FATTY-ACIDS) 1 GM CAPSULE (FP) PO SCH (10:28)
[2017-10-25] MEDS: HYDROCHLOROTHIAZIDE 25 MG TABLET (FP) PO SCH (10:29)
[2017-10-25] MEDS: risperiDONE 2 MG TABLET PO SCH (10:29)
[2017-10-25] MEDS: BACITRACIN 0.9 GM PACKET TP SCH ×2 (10:33→21:37)
[2017-10-25] MEDS: NICOTINE 14 MG/24 HOURS TOPICAL PATCH TD SCH (10:34)
[2017-10-25] MEDS: CYCLOBENZAPRINE HCL 5 MG TABLET PO PRN (10:34)
[2017-10-25] MEDS: ATORVASTATIN CA 20 MG TABLET (FP) PO SCH (21:37)
[2017-10-25] MEDS: THIAMINE HCL 100 MG TABLET (FP) PO SCH (21:37)
[2017-10-25] MEDS: LIDOCAINE PATCH REMOVAL MC SCH (21:41)
[2017-10-26] MEDS: metFORMIN HCL 500 MG TABLET (FP) PO SCH ×2 (06:01→16:59)
[2017-10-26] MEDS: NICOTINE POLACRILEX 2 MG GUM BUC PRN ×6 (06:03→21:30)
[2017-10-26] MEDS: amLODIPine BESYLATE 10 MG TABLET (FP) PO SCH (10:23)
[2017-10-26] MEDS: risperiDONE 2 MG TABLET PO SCH (10:23)
[2017-10-26] MEDS: HYDROCHLOROTHIAZIDE 25 MG TABLET (FP) PO SCH (10:23)
[2017-10-26] MEDS: PRENATAL VITAMINS W/ FOLIC ACID TABLET (FP) PO SCH (10:23)
[2017-10-26] MEDS: OMEGA-3 ACID ETHYL ESTERS (FATTY-ACIDS) 1 GM CAPSULE (FP) PO SCH (10:23)
[2017-10-26] MEDS: ATENOLOL 50 MG TABLET (FP) PO SCH (10:23)
[2017-10-26] MEDS: BACLOFEN 10 MG TABLET (FP) PO SCH ×2 (10:23→21:29)
[2017-10-26] MEDS: ASPIRIN COATED 81 MG TABLET.EC PO SCH (10:24)
[2017-10-26] MEDS: BACITRACIN 0.9 GM PACKET TP SCH ×2 (10:24→21:29)
[2017-10-26] MEDS: LIDOCAINE 5% TOPICAL PATCH TP SCH (10:24)
[2017-10-26] MEDS: NICOTINE 14 MG/24 HOURS TOPICAL PATCH TD SCH (10:26)
[2017-10-26] MEDS: SIMETHICONE 80 MG TAB.CHEW (FP) PO PRN (14:46)
[2017-10-26] MEDS: ATORVASTATIN CA 20 MG TABLET (FP) PO SCH (21:29)
[2017-10-26] MEDS: LIDOCAINE PATCH REMOVAL MC SCH (21:29)
[2017-10-26] MEDS: THIAMINE HCL 100 MG TABLET (FP) PO SCH (21:29)
[2017-10-27] MEDS: metFORMIN HCL 500 MG TABLET (FP) PO SCH ×2 (06:06→16:47)
[2017-10-27] MEDS: NICOTINE POLACRILEX 2 MG GUM BUC PRN ×5 (06:08→21:30)
[2017-10-27] MEDS: SIMETHICONE 80 MG TAB.CHEW (FP) PO PRN (10:50)
[2017-10-27] MEDS: PRENATAL VITAMINS W/ FOLIC ACID TABLET (FP) PO SCH (10:51)
[2017-10-27] MEDS: risperiDONE 2 MG TABLET PO SCH (10:51)
[2017-10-27] MEDS: ASPIRIN COATED 81 MG TABLET.EC PO SCH (10:51)
[2017-10-27] MEDS: LIDOCAINE 5% TOPICAL PATCH TP SCH (10:51)
[2017-10-27] MEDS: HYDROCHLOROTHIAZIDE 25 MG TABLET (FP) PO SCH (10:51)
[2017-10-27] MEDS: BACLOFEN 10 MG TABLET (FP) PO SCH ×2 (10:51→21:29)
[2017-10-27] MEDS: OMEGA-3 ACID ETHYL ESTERS (FATTY-ACIDS) 1 GM CAPSULE (FP) PO SCH (10:51)
[2017-10-27] MEDS: amLODIPine BESYLATE 10 MG TABLET (FP) PO SCH (10:51)
[2017-10-27] MEDS: ATENOLOL 50 MG TABLET (FP) PO SCH (10:51)
[2017-10-27] MEDS: NICOTINE 14 MG/24 HOURS TOPICAL PATCH TD SCH (10:52)
[2017-10-27] MEDS: BACITRACIN 0.9 GM PACKET TP SCH ×2 (10:54→21:29)
[2017-10-27] MEDS: ATORVASTATIN CA 20 MG TABLET (FP) PO SCH (21:29)
[2017-10-27] MEDS: THIAMINE HCL 100 MG TABLET (FP) PO SCH (21:29)
[2017-10-27] MEDS: LIDOCAINE PATCH REMOVAL MC SCH (21:30)
[2017-10-28] MEDS: metFORMIN HCL 500 MG TABLET (FP) PO SCH ×2 (06:07→16:51)
[2017-10-28] MEDS: NICOTINE POLACRILEX 2 MG GUM BUC PRN ×6 (06:08→21:46)
[2017-10-28] MEDS: ASPIRIN COATED 81 MG TABLET.EC PO SCH (10:27)
[2017-10-28] MEDS: LIDOCAINE 5% TOPICAL PATCH TP SCH (10:27)
[2017-10-28] MEDS: BACITRACIN 0.9 GM PACKET TP SCH ×2 (10:27→21:45)
[2017-10-28] MEDS: HYDROCHLOROTHIAZIDE 25 MG TABLET (FP) PO SCH (10:27)
[2017-10-28] MEDS: OMEGA-3 ACID ETHYL ESTERS (FATTY-ACIDS) 1 GM CAPSULE (FP) PO SCH (10:27)
[2017-10-28] MEDS: PRENATAL VITAMINS W/ FOLIC ACID TABLET (FP) PO SCH (10:27)
[2017-10-28] MEDS: amLODIPine BESYLATE 10 MG TABLET (FP) PO SCH (10:27)
[2017-10-28] MEDS: BACLOFEN 10 MG TABLET (FP) PO SCH ×2 (10:27→21:45)
[2017-10-28] MEDS: NICOTINE 14 MG/24 HOURS TOPICAL PATCH TD SCH (10:27)
[2017-10-28] MEDS: ATENOLOL 50 MG TABLET (FP) PO SCH (10:28)
[2017-10-28] MEDS: SIMETHICONE 80 MG TAB.CHEW (FP) PO PRN (10:28)
[2017-10-28] MEDS: risperiDONE 2 MG TABLET PO SCH (10:29)
[2017-10-28] MEDS: ATORVASTATIN CA 20 MG TABLET (FP) PO SCH (21:45)
[2017-10-28] MEDS: THIAMINE HCL 100 MG TABLET (FP) PO SCH (21:45)
[2017-10-28] MEDS: LIDOCAINE PATCH REMOVAL MC SCH (22:10)
[2017-10-29] MEDS: metFORMIN HCL 500 MG TABLET (FP) PO SCH (06:44)
[2017-10-29] MEDS: NICOTINE POLACRILEX 2 MG GUM BUC PRN ×2 (06:45→09:30)
[2017-10-29 06:53] VITALS: BP 140/94; PULSE 89; TEMP 98.9
[2017-10-29] MEDS: risperiDONE 2 MG TABLET PO SCH (09:26)
[2017-10-29] MEDS: HYDROCHLOROTHIAZIDE 25 MG TABLET (FP) PO SCH (09:26)
[2017-10-29] MEDS: PRENATAL VITAMINS W/ FOLIC ACID TABLET (FP) PO SCH (09:26)
[2017-10-29] MEDS: OMEGA-3 ACID ETHYL ESTERS (FATTY-ACIDS) 1 GM CAPSULE (FP) PO SCH (09:27)
[2017-10-29] MEDS: amLODIPine BESYLATE 10 MG TABLET (FP) PO SCH (09:27)
[2017-10-29] MEDS: ATENOLOL 50 MG TABLET (FP) PO SCH (09:27)
--- NOTE | 2017-10-29 09:27 | PN ---
Psychiatric Progress Note Vital Signs: Vital Signs Period Temp Pulse Resp BP Sys/Brian Pulse Ox Last 24 Hr 98.9 F 79-89 18-18 140-141/84-94 Date of Session: 10/29/17 Chief Complaint:: Discharge Note HPI: Patient addressing Alcohol and Cocaine Dependence comorbid with Nicotine Dependence and Schizoaffective Disorder ROS: Arthritis, HTN, HLD, PPD+, Spinal stenosis lumosacral region Current Medications: Active Medications Generic Name Dose Route Start Last Admin Trade Name Freq PRN Reason Stop Dose Admin Acetaminophen 650 mg 10/01/17 19:26 10/10/17 11:57 Tylenol - PO 650 mg Q4H PRN Administration FEVER Al Hydroxide/Mg Hydroxide 30 ml 10/01/17 19:26 Mylanta Oral Suspension - PO Q6H PRN DYSPEPSIA Amlodipine Besylate 10 mg 10/01/17 19:30 10/28/17 10:27 Norvasc - PO 10 mg DAILY ARLETH Administration Aspirin 81 mg 10/01/17 19:30 10/28/17 10:27 Ecotrin - PO 81 mg DAILY ARLETH Administration Atenolol 25 mg 10/01/17 19:30 10/28/17 10:28 Tenormin - PO 25 mg DAILY ARLETH Administration Atorvastatin Calcium 20 mg 10/01/17 22:00 10/28/17 21:45 Lipitor - PO 20 mg HS ARLETH Administration Bacitracin 0.9 gm 10/12/17 22:00 10/28/17 21:45 Bacitracin - TP 0.9 gm BID ARLETH Administration Baclofen 10 mg 10/01/17 22:00 10/28/17 21:45 Lioresal - PO 10 mg BID ARLETH Administration Bupropion HCl 300 mg 10/02/17 10:30 10/28/17 10:27 Wellbutrin Xl - PO 300 mg DAILY ARLETH Administration Colloidal Oatmeal 1 applic 10/04/17 13:23 10/05/17 12:35 Aveeno Soap - TP 1 applic DAILY PRN Administration HYGEINE Cyclobenzaprine HCl 5 mg 10/23/17 13:01 10/25/17 10:34 Cyclobenzaprine Hcl PO 5 mg TID PRN Administration back pain Eucalyptus/Menthol/Phenol/Sorbitol 1 each 10/01/17 19:26 Cepastat Lozenge - MM Q4H PRN SORE THROAT Guaifenesin 10 ml 10/01/17 19:26 Robitussin Dm - PO Q6H PRN COUGH Hydrochlorothiazide 25 mg 10/02/17 10:00 10/28/17 10:27 Hctz - PO 25 mg DAILY ARLETH Administration Hydroxyzine Pamoate 50 mg 10/01/17 19:26 Vistaril - PO Q4H PRN AGITATION Lidocaine 1 patch 10/02/17 10:00 10/28/17 10:27 Lidoderm Patch - TP 1 patch DAILY ARLETH Administration Loperamide HCl 4 mg 10/01/17 19:26 Imodium - PO Q6H PRN DIARRHEA Magnesium Citrate 300 ml 10/01/17 19:26 Citroma - PO Q48H PRN CONSTIPATION Magnesium Hydroxide 30 ml 10/01/17 19:26 Milk Of Magnesia - PO DAILY PRN CONSTIPATION Melatonin 5 mg 10/01/17 22:00 Melatonin PO HS PRN INSOMNIA Metformin HCl 500 mg 10/02/17 07:00 10/29/17 06:44 Glucophage - PO 500 mg BIDAC ARLETH Administration Miscellaneous 1 each 10/01/17 22:00 10/28/17 22:10 Lidoderm Patch Removal MC Not Given DAILY@2200 ARLETH Nicotine 14 mg 10/01/17 19:30 10/28/17 10:27 Nicoderm Patch - TD Not Given DAILY ARLETH Nicotine Polacrilex 4 mg 10/20/17 10:47 10/29/17 06:45 Nicorette Gum - BUC 4 mg Q2H PRN Administration NICOTINE REPLACEMENT RX [id number] Ethyl Esters 1 gm 10/05/17 10:00 10/28/17 10:27 Lovaza - PO 1 gm DAILY ARLETH Administration Multivit/Folic Acid/Iron 1 tab 10/02/17 10:00 10/28/17 10:27 Vitamins (Sjr) - PO 1 tab DAILY ARLETH Administration Pseudoephedrine/Triprolidine 1 combo 10/01/17 19:26 Actifed - PO TID PRN NASAL CONGESTION Risperidone 2 mg 10/02/17 10:30 10/28/17 10:29 Risperdal - PO 2 mg DAILY ARLETH Administration Simethicone 80 mg 10/23/17 13:01 10/28/17 10:28 Mylicon - PO 80 mg Q4H PRN Administration GAS Thiamine HCl 100 mg 10/01/17 22:00 10/28/17 21:45 Vitamin B1 - PO 100 mg HS ARLETH Administration Current Side Effect: No Lab tests ordered: Yes Lab tests reviewed: Yes Provider note:: Patient has completed this program. He has met his treatment goals and will continue to address his issues in outpatient treatment at [facility]. 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 He responded well to Risperdal 2 mg po daily and Wellbutrin XL 300 mg po daily. Scripts for 30 days supply of medications are electronically transmitted to [facility] at [address] [place] [address]. He is stable for discharge today Total face to face time:: 35 Mental Status Exam - Mental Status Exam Alert and Oriented to: Time, Place, Person Cognitive Function: Fair Patient Appearance: Well Groomed Mood: Hopeful, Euthymic Affect: Appropriate Patient Behavior: Cooperative Speech Pattern: Clear Voice Loudness: Normal Thought Process: Intact Thought Disorder: Not Present Hallucinations: Denies Suicidal Ideation: Denies Homicidal Ideation: Denies Insight/Judgement: Fair Sleep: Well Appetite: Good Muscle strength/Tone: Normal Gait/Station: Normal Psychiatric Treatment Plan - Problem List (1) Alcohol dependence Current Visit: Yes (2) Cocaine dependence Current Visit: Yes Qualifiers: Substance use status: uncomplicated Qualified Code(s): F14.20 - Cocaine dependence, uncomplicated (3) Nicotine dependence Current Visit: No Qualifiers: Nicotine product type: cigarettes Substance use status: in withdrawal Qualified Code(s): F17.213 - Nicotine dependence, cigarettes, with withdrawal (4) Schizoaffective disorder Current Visit: No Qualifiers: Schizoaffective disorder type: depressive Qualified Code(s): F25.1 - Schizoaffective disorder, depressive type Comment: History. Compliant with medication. 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: without residential use Diabetes mellitus complication status: with unspecified complications Qualified Code(s): E11.8 - Type 2 diabetes mellitus with unspecified complications (7) Hypercholesteremia Current Visit: Yes (8) Hypertension Current Visit: Yes Qualifiers: Hypertension type: essential hypertension Qualified Code(s): I10 - Essential (primary) hypertension (9) Spinal stenosis, lumbosacral region Current Visit: Yes (10) Walker as ambulation aid Current Visit: Yes (11) History of positive PPD Current Visit: No Initial treatment plan: Patient is discharged today and referred to [facility] for outpatient treatment
[2017-10-29] MEDS: BACITRACIN 0.9 GM PACKET TP SCH (09:28)
[2017-10-29] MEDS: LIDOCAINE 5% TOPICAL PATCH TP SCH (09:28)
[2017-10-29] MEDS: NICOTINE 14 MG/24 HOURS TOPICAL PATCH TD SCH (09:28)
[2017-10-29] MEDS: ASPIRIN COATED 81 MG TABLET.EC PO SCH (09:29)
[2017-10-29] MEDS: SIMETHICONE 80 MG TAB.CHEW (FP) PO PRN (09:29)
[2017-10-29] MEDS: BACLOFEN 10 MG TABLET (FP) PO SCH (10:22)
== END 2017-10-29 10:45 | disposition home or self-care (01) | DRG 772 ==
LOC: YASAS 14:11 → Y5N 17:08
PROVIDERS: ADMIT Surgery; ATTEND Surgery
PROC: HZ42ZZZ Group Counseling for Substance Abuse Treatment, Cognitive-Behavioral (ICD-10-PCS; principal; 2017-10-01)
DX: F10.20 Alcohol dependence, uncomplicated (principal); F14.20 Cocaine dependence, uncomplicated; F12.20 Cannabis dependence, uncomplicated; F17.213 Nicotine dependence, cigarettes, with withdrawal; F25.1 Schizoaffective disorder, depressive type; F32.9 Major depressive disorder, single episode, unspecified; I10 Essential (primary) hypertension; E78.00 Pure hypercholesterolemia, unspecified; E11.9 Type 2 diabetes mellitus without complications; Z79.84 Long term (current) use of oral hypoglycemic drugs; M12.9 Arthropathy, unspecified; M48.07 Spinal stenosis, lumbosacral region; R76.11 Nonspecific reaction to tuberculin skin test without active tuberculosis; R26.89 Other abnormalities of gait and mobility; Z99.89 Dependence on other enabling machines and devices; Z96.641 Presence of right artificial hip joint; Z88.1 Allergy status to other antibiotic agents; Z88.8 Allergy status to other drugs, medicaments and biological substances; Z86.2 Personal history of diseases of the blood and blood-forming organs and certain disorders involving the immune mechanism
CPT/HCPCS: 36415; 80053; 81003; 81015; 82962; 85027; 86593; 93005; 93010; J0475; Q0162

== ENCOUNTER 2018-01-02 08:13 | Inpatient (IN) | payer OTHER ==
[2018-01-02 08:27] VITALS: BMI 29.4
--- NOTE | 2018-01-02 08:39 | HP ---
CIWA Score Nausea/Vomitin Muscle Tremors: 2 Anxiety: 2 Agitation: 2 Paroxysmal Sweats: 1-Minimal Palms Moist Orientation: 0-Oriented Tacttile Disturbances: 1-Very Mild Itch/Numbness Auditory Disturbances: 1-Very Mild Visual Disturbances: 0-None Headache: 2-Mild CIWA-Ar Total Score: 13 - Admission Criteria OASAS Guidelines: Admission for Medically Managed Detox: Requires at least one of the followin. CIWA greater than 12 2. Seizures within the past 24 hours 3. Delirium tremens within the past 24 hours 4. Hallucinations within the past 24 hours 5. Acute intervention needed for co occurring medical disorder 6. Acute intervention needed for co occurring psychiatric disorder 7. Severe withdrawal that cannot be handled at a lower level of care (continued vomiting, continued diarrhea, abnormal vital signs) requiring intravenous medication and/or fluids 8. Patient presents the following: CIWA greater than 12 Admission Criteria Met: Admission criteria met Admission ROS BHS - HPI Chief Complaint: i need help to stop drinking alcohol,cocaine and marijuana Allergies/Adverse Reactions: Allergies Allergy/AdvReac Type Severity Reaction Status Date / Time enalapril [Enalapril] Allergy Severe Swelling Verified 01/02/18 09:28 levofloxacin [From Levaquin] Allergy Severe Hives Verified 01/02/18 09:28 haloperidol [From Haldol] AdvReac Severe stiffness Verified 01/02/18 09:28 haloperidol lactate AdvReac Severe sfiffness Verified 01/02/18 09:28 [From Haldol] History of Present Illness: this 62 years old male with alcohol,cocaine and marijuana dependence,seeking detox,withdrawal symptom, multiple admissions in detox and rehab,last rehab [facility] 10/01/17 to 10/29/17 history of hypertension,type 2 dm,low back pain spinal stenosis,arthritis both feet syncope alcohol related nicotine dependence anxiety,depression,insomnia weight loss - Ebola screening Have you traveled outside of the country in the last 21 days: No Have you had contact with anyone from an Ebola affected area: No Have you been sick,other than usual withdrawal symptoms: No Do you have a fever: No - Review of Systems Constitutional: Loss of Appetite, Malaise, Night Sweats, Changes in sleep, Weakness EENT: reports: Tearing, Nose Congestion Cardiac: reports: No Symptoms Reported GI: reports: Nausea, Poor Appetite, Abdominal cramping : reports: No Symptoms Reported Musculoskeletal: reports: Back Pain, Muscle Pain Integumentary: reports: Dryness Neuro: reports: Headache, Tremors Endocrine: reports: No Symptoms Reported (type 2 dm) Hematology: reports: No Symptoms Reported Psychiatric: reports: No Sypmtoms Reported, Judgement Intact, Mood/Affect Appropiate, Orientated x3, Anxious, Depressed (insomnia,) Patient History - Patient Medical History Hx Anemia: Yes (NO CURRENT MED) Hx Asthma: No Hx Chronic Obstructive Pulmonary Disease (COPD): No Hx Cancer: No Hx Cardiac Disorders: No Hx Congestive Heart Failure: No Hx Hypertension: Yes (ON MED) Hx Hypercholesterolemia: Yes (ATORVASTATIN) Hx Pacemaker: No HX Cerebrovascular Accident: No Hx Seizures: No Hx Dementia: No Hx Diabetes: Yes (NIDDM-ON METFORMIN 500 MG BID) Hx Gastrointestinal Disorders: No Hx Liver Disease: No Hx Genitourinary Disorders: No Hx Sexually Transmitted Disorders: No Hx Renal Disease (ESRD): No Hx Thyroid Disease: No Hx Human Immunodeficiency Virus (HIV): No (NEGATIVE HX last 09/29 ) Hx Hepatitis C: No (DENIES) Hx Depression: Yes (ON MED) Hx Suicide Attempt: No (DENIES S/I) Hx Bipolar Disorder: No Hx Schizophrenia: No Other Medical History: schizoaffective disorder,no suicidal,no homicidal - Patient Surgical History Past Surgical History: Yes Hx Neurologic Surgery: No Hx Cataract Extraction: No Hx Cardiac Surgery: No Hx Lung Surgery: No Hx Breast Surgery: No Hx Breast Biopsy: No Hx Abdominal Surgery: No Hx Appendectomy: No Hx Cholecystectomy: No Hx Genitourinary Surgery: No Hx Section: No Hx Orthopedic Surgery: Yes (right hip replacement in 04/2003 at [facility] for avascular necrosis) Other Surgical History: history of fracture of right foot Anesthesia Reaction: No - PPD History Documented Results: Positive w/proof Results: cxr(-)06/19/17 - Smoking Cessation Smoking history: Current every day smoker Have you smoked in the past 12 months: Yes Aproximately how many cigarettes per day: 10 Cigars Per Day: 0 Hx Chewing Tobacco Use: No Initiated information on smoking cessation: Yes 'Breaking Loose' booklet given: 01/02/18 - Substance & Tx. History Hx Alcohol Use: Yes Hx Substance Use: Yes Substance Use Type: Alcohol, Cocaine, Heroin Hx Substance Use Treatment: Yes ([facility] rehab 10/01/17 to 10/29/17) - Substances Abused Alcohol Route: Oral Frequency: Daily Amount used: 1/2pint of enu/6 packs of 16 ozs of beer Age of first use: 15 Date of Last Use: 01/01/18 Cocaine Route: Inhalation Frequency: 1-2 times per week Amount used: 100$ Age of first use: 20 Date of Last Use: 01/01/18 Marijuana/Hashish Route: Smoking Frequency: 1-2 times per week Amount used: 5$ Age of first use: 16 Date of Last Use: 12/31/17 Family Disease History - Family Disease History Family Disease History: Heart Disease: Father (), Respiratory: Mother ( ), Other: Father, Mother Admission Physical Exam [facility] - Vital Signs Vital Signs: Vital Signs - 24 hr 01/02/18 08:24 Temperature 97.2 F L Pulse Rate 76 Respiratory 18 Rate Blood Pressure 144/83 - Physical General Appearance: Yes: Moderate Distress, Tremorous, Irritable, Sweating, Anxious HEENTM: Yes: Normal ENT Inspection, WILLY, Pharynx Normal Respiratory: Yes: Within Normal Limits, Lungs Clear, Normal Breath Sounds Neck: Yes: Within Normal Limits, Supple, Trachea in good position Breast: Yes: Within Normal Limits Cardiology: Yes: Within Normal Limits, Regular Rhythm, Regular Rate, S1, S2 Abdominal: Yes: Within Normal Limits, Normal Bowel Sounds, Non Tender, Soft Genitourinary: Yes: Within Normal Limits Back: Yes: Muscle Spasm Musculoskeletal: Yes: Back pain Extremities: Yes: Within Normal Limits, Normal Range of Motion, Tremors Neurological: Yes: 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 NML intact, Fully Oriented, Alert, Motor Strength 5/5 Integumentary: Yes: Dry Lymphatic: Yes: Within Normal Limits - Diagnostic (1) Alcohol dependence with uncomplicated withdrawal Current Visit: Yes Status: Acute (2) Cannabis dependence, uncomplicated Current Visit: Yes Status: Acute (3) Cocaine dependence, uncomplicated Current Visit: Yes Status: Acute (4) History of positive PPD Current Visit: No Status: Chronic (5) DM2 (diabetes mellitus, type 2) Current Visit: Yes Status: Acute (6) Arthritis Current Visit: No Status: Chronic (7) Schizoaffective disorder Current Visit: Yes Status: Chronic Qualifiers: Schizoaffective disorder type: depressive Qualified Code(s): F25.1 - Schizoaffective disorder, depressive type Comment: History. Compliant with medication. (8) Spinal stenosis, lumbosacral region Current Visit: No Status: Chronic (9) Use of cane as ambulatory aid Current Visit: Yes Status: Acute (10) Essential hypertension Current Visit: Yes Status: Acute (11) Hypercholesteremia Current Visit: No Status: Chronic Cleared for Admission [facility] - Detox or Rehab [facility] Level of Care: Medically Managed Detox Regimen/Protocol: Librium [facility] Breath Alcohol Content Breath Alcohol Content: 0 Urine Drug Screen - Results Drug Screen Negative: No Urine Drug Screen Results: THC-Marijuana, JESUS ALBERTO-Cocaine, BAR-Barbiturates
[2018-01-02] MEDS ORDERED: MENTHOL/PHENOL 1 EACH UD MM PRN (08:57)
[2018-01-02] MEDS ORDERED: hydrOXYzine PAMOATE 50 MG CAPSULE (FP) PO PRN (08:57)
[2018-01-02] MEDS ORDERED: MAGNESIUM CITRATE 300 ML BOTTLE PO PRN (08:57)
[2018-01-02] MEDS ORDERED: guaiFENesin/D-METHORPHAN HB 10 ML UNIT-DOSE CUPS PO PRN (08:57)
[2018-01-02] MEDS ORDERED: MAG HYDROX/AL HYDROX/SIMETH 30 ML UNIT-DOSE CUP PO PRN (08:57)
[2018-01-02] MEDS ORDERED: ACETAMINOPHEN 325 MG TABLET (FP) PO PRN (08:57)
[2018-01-02] MEDS ORDERED: P-EPHED 60MG/TRIPROLIDI 2.5MG TABLET PO PRN (08:57)
[2018-01-02] MEDS ORDERED: IBUPROFEN 400 MG TABLET (FP) PO PRN (08:57)
[2018-01-02] MEDS ORDERED: MAGNESIUM HYDROX 2400MG/30ML ORAL SUSPENSION 30 ML CUP PO PRN (08:57)
[2018-01-02] MEDS ORDERED: LOPERAMIDE HCL 2 MG CAPSULE PO PRN (08:57)
[2018-01-02] MEDS ORDERED: chlordiazePOXIDE HCL 25 MG CAPSULE PO PRN (08:57)
[2018-01-02] MEDS: chlordiazePOXIDE HCL 25 MG CAPSULE PO SCH ×3 (11:10→22:28)
[2018-01-02] MEDS: PRENATAL VITAMINS W/ FOLIC ACID TABLET (FP) PO SCH (11:10)
[2018-01-02] MEDS: metFORMIN HCL 500 MG TABLET (FP) PO SCH (17:25)
[2018-01-02] MEDS: NICOTINE POLACRILEX 2 MG GUM BUC PRN (17:28)
--- NOTE | 2018-01-02 18:36 | CONSULT ---
[facility] Psychiatric Consult - Data Date of interview: 01/02/18 Admission source: [facility] Identifying data: Readmission to [facility] for this 62 y/o AA male seeking detoxification treatment on for alcohol, cannabis and cocaine dependence. Patient is single without children, domiciled, unemployed and supported on Public Assistance. Substance Abuse History: Confirmed by the patient in this session. Details in current [facility] report : Smoking history: Current every day smoker. Have you smoked in the past 12 months: Yes. Aproximately how many cigarettes per day: 10. Cigars Per Day: 0. Hx Chewing Tobacco Use: No. Initiated information on smoking cessation: Yes. 'Breaking Loose' booklet given: 01/02/18. - Substance & Tx. History. Hx Alcohol Use: Yes. Hx Substance Use: Yes. Substance Use Type : Alcohol, Cocaine, Heroin. Hx Substance Use Treatment: Yes ([facility] rehab to 10/29/17). - Substances Abused. Alcohol. Route: Oral. Frequency: Daily. Amount used: 1/2pint of eun/6 packs of 16 ozs of beer. Age of first use: 15. Date of Last Use: 01/01/18. Cocaine. Route: Inhalation. Frequency: 1-2 times per week. Amount used: 100$. Age of first use: 20. Date of Last Use: 01/01/18. Marijuana/Hashish. Route: Smoking. Frequency: 1-2 times per week. Amount used: 5$. Age of first use: 16. Date of Last Use: Medical History: Orthosurgery for fracture of right fibula (2004), hypertension , spinal stenosis, lower back pain, History of (+) PPD and treatment with INH ( 2004), hypercholesterolemia and arthritis at L3-L4 level. Noted history of angina and right hip replacement for avascular necrosis (2004). Multiple allergies : haloperidol, enalapril and levofloxacin. Psychiatric History: Patient endorses a history of multiple psychiatric hospitalizations. Onset of psychiatric disturbances (1985). Diagnosed with Schizoaffective Disorder. Past admissions to [facility], [facility], [facility] and [facility]. Mr Noonan declares that he has stopped going to the [facility] OPD clinic in the [place]. Was prescribed risperdal 4mg/hs + wellbutrin XL 300 mg/day at [facility] in [place]. Not taken since 10/2017 after discharge from that facility. Patient denies any history of suicide attempts. Physical/Sexual Abuse/Trauma History: Patient denies history of sexual or physical abuse. 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 Served in [employer], [employer] and [employer] in the .No report of flashbacks or nightmares. Additional Comment: Urine Drug Screen Results: THC-Marijuana, JESUS ALBERTO-Cocaine, BAR- Barbiturates, BZO-Benzodiazepines. Noted. Mental Status Exam - Mental Status Exam Alert and Oriented to: Time, Place, Person Cognitive Function: Good Patient Appearance: Well Groomed Mood: Hopeful, Euthymic Affect: Appropriate, Normal Range Patient Behavior: Fatigued, Cooperative Speech Pattern: Clear, Appropriate Voice Loudness: Normal Thought Process: Goal Oriented Thought Disorder: Not Present Hallucinations: Denies Suicidal Ideation: Denies Homicidal Ideation: Denies Insight/Judgement: Poor, Impaired Sleep: Poorly, Difficulty falling asleep Appetite: Good Muscle strength/Tone: Normal Gait/Station: Normal Psychiatric Findings - Problem List ([place] 1, 2,3) (1) Alcohol dependence with uncomplicated withdrawal Current Visit: Yes Status: Acute (2) Cannabis dependence, uncomplicated Current Visit: Yes Status: Acute (3) Cocaine dependence, uncomplicated Current Visit: Yes Status: Acute (4) Nicotine dependence Current Visit: Yes Status: Acute Qualifiers: Nicotine product type: cigarettes Substance use status: in withdrawal Qualified Code(s): F17.213 - Nicotine dependence, cigarettes, with withdrawal (5) Schizoaffective disorder Current Visit: Yes Status: Chronic Qualifiers: Schizoaffective disorder type: depressive Qualified Code(s): F25.1 - Schizoaffective disorder, depressive type Comment: History. Compliant with medication. - Initial Treatment Plan Initial Treatment Plan: Psychoeducation. Detoxification. Supportive psychotherapy. Will resume wellbutrin XL 150 mg po daily + risperdal 1 mg po hs (patient's request). Side effects/benefits of both medications are discussed with the patient. Consent (verbal) : given. Observation.
[2018-01-02] MEDS ORDERED: MELATONIN 5 MG TABLETS PO PRN (22:00)
[2018-01-02] MEDS: ATORVASTATIN CA 20 MG TABLET (FP) PO SCH (22:29)
[2018-01-02] MEDS: THIAMINE HCL 100 MG TABLET (FP) PO SCH (22:29)
[2018-01-02] MEDS: risperiDONE 1 MG TABLET (FP) PO SCH (22:29)
[2018-01-03] LABS: URINE APPEARANCE TURBID; URINE BILIRUBIN NEGATIVE (<2.0 mg/dL); URINE COLOR AMBER; URINE GLUCOSE (UA) NEGATIVE (NEGATIVE); URINE KETONE TRACE (NEGATIVE); URINE LEUK ESTERASE NEGATIVE (NEGATIVE); URINE NITRITE NEGATIVE (NEGATIVE); URINE PROTEIN 1+ (NEGATIVE); URINE UROBILINOGEN 4.0 E.U/dl mg/dL (0.2-1.0)
[2018-01-03 00:05] LABS: URINE MUCUS MANY
[2018-01-03] MEDS: chlordiazePOXIDE HCL 25 MG CAPSULE PO SCH ×4 (05:19→22:24)
[2018-01-03] MEDS: metFORMIN HCL 500 MG TABLET (FP) PO SCH ×2 (06:10→17:21)
[2018-01-03] MEDS: amLODIPine BESYLATE 10 MG TABLET (FP) PO SCH (10:12)
[2018-01-03] MEDS: ASPIRIN COATED 81 MG TABLET.EC PO SCH (10:12)
[2018-01-03] MEDS: ATENOLOL 25 MG TABLET (FP) PO SCH (10:12)
[2018-01-03] MEDS: HYDROCHLOROTHIAZIDE 25 MG TABLET (FP) PO SCH (10:12)
[2018-01-03] MEDS: LIDOCAINE 5% TOPICAL PATCH TP SCH (10:12)
[2018-01-03] MEDS: PRENATAL VITAMINS W/ FOLIC ACID TABLET (FP) PO SCH (10:12)
[2018-01-03 10:23] LABS: HEMATOCRIT 41.9 % (35.4-49); HEMOGLOBIN 13.9 GM/dL (11.7-16.9); MCH 33.1 pg (25.7-33.7); MCHC 33.2 g/dl (32.0-35.9); MEAN CELL VOLUME 99.6 fl (80-96); MEAN PLT VOLUME 10.4 fl (7.5-11.1); PLATELET COUNT 156 K/MM3 (134-434); RBC 4.21 M/mm3 (4.00-5.60); RDW 15.2 % (11.9-15.9); WHITE BLOOD COUNT 3.1 K/mm3 (4.0-10.0)
[2018-01-03 10:44] LABS: ALBUMIN 4.1 g/dl (3.4-5.0); ALK PHOS 62 U/L (45-117); ANION GAP 10 MMOL/L (8-16); BILIRUBIN,TOTAL 1.2 mg/dL (0.2-1); BLOOD UREA NITROGEN 19 mg/dL (7-18); CALCIUM 8.9 mg/dL (8.5-10.1); CHLORIDE 103 mmol/L (98-107); CO2 29 mmol/L (21-32); CREATININE 1.1 mg/dL (0.55-1.3); GLUCOSE,RANDOM 72 mg/dL (74-106); POTASSIUM 4.1 mmol/L (3.5-5.1); SGOT/AST 20 U/L (15-37); SGPT/ALT 25 U/L (13-61); SODIUM 141 mmol/L (136-145); TOT PROT 7.8 g/dl (6.4-8.2)
--- NOTE | 2018-01-03 11:24 | PN ---
[facility] CIWA - CIWA Score Nausea/Vomitin-Mild Nausea/No Vomiting Muscle Tremors: 3 Anxiety: 1-Mildly Anxious Agitation: 2 Paroxysmal Sweats: 1-Minimal Palms Moist Orientation: 1-Uncertain about Date Tacttile Disturbances: 1-Very Mild Itch/Numbness Auditory Disturbances: 1-Very Mild Visual Disturbances: 0-None Headache: 1-Very Mild CIWA-Ar Total Score: 12 BHS Progress Note (SOAP) Subjective: tremor sweat anxiety low energy restlessness Objective: 01/03/18 11:22 Vital Signs Temperature 98.4 F 01/03/18 09:33 Pulse Rate 72 01/03/18 09:33 Respiratory Rate 16 01/03/18 09:33 Blood Pressure 112/66 01/03/18 09:33 O2 Sat by Pulse Oximetry (%) Laboratory Last Values WBC 3.1 K/mm3 (4.0-10.0) L 01/03/18 05:40 RBC 4.21 M/mm3 (4.00-5.60) 01/03/18 05:40 Hgb 13.9 GM/dL (11.7-16.9) 01/03/18 05:40 Hct 41.9 % (35.4-49) 01/03/18 05:40 MCV 99.6 fl (80-96) H 01/03/18 05:40 MCH 33.1 pg (25.7-33.7) 01/03/18 05:40 MCHC 33.2 g/dl (32.0-35.9) 01/03/18 05:40 RDW 15.2 % (11.9-15.9) D 01/03/18 05:40 Plt Count 156 K/MM3 (134-434) 01/03/18 05:40 MPV 10.4 fl (7.5-11.1) D 01/03/18 05:40 Sodium 141 mmol/L (136-145) 01/03/18 05:40 Potassium 4.1 mmol/L (3.5-5.1) 01/03/18 05:40 Chloride 103 mmol/L (98-107) 01/03/18 05:40 Carbon Dioxide 29 mmol/L (21-32) 01/03/18 05:40 Anion Gap 10 MMOL/L (8-16) 01/03/18 05:40 BUN 19 mg/dL (7-18) H 01/03/18 05:40 Creatinine 1.1 mg/dL (0.55-1.3) 01/03/18 05:40 Creat Clearance w eGFR > 60 (>60) 01/03/18 05:40 POC Glucometer 141 UNITS (80-120) 01/03/18 05:18 Random Glucose 72 mg/dL (74-106) L 01/03/18 05:40 Calcium 8.9 mg/dL (8.5-10.1) 01/03/18 05:40 Total Bilirubin 1.2 mg/dL (0.2-1) H 01/03/18 05:40 AST 20 U/L (15-37) 01/03/18 05:40 ALT 25 U/L (13-61) 01/03/18 05:40 Alkaline Phosphatase 62 U/L (45-117) 01/03/18 05:40 Total Protein 7.8 g/dl (6.4-8.2) 01/03/18 05:40 Albumin 4.1 g/dl (3.4-5.0) 01/03/18 05:40 Urine Color Adina 01/02/18 23:45 Urine Appearance Turbid 01/02/18 23:45 Urine pH 5.0 (5.0-8.0) D 01/02/18 23:45 Ur Specific [place] 1.032 (1.010-1.035) 01/02/18 23:45 Urine Protein 1+ (NEGATIVE) H 01/02/18 23:45 Urine Glucose (UA) Negative (NEGATIVE) 01/02/18 23:45 Urine Ketones Trace (NEGATIVE) H 01/02/18 23:45 Urine Blood Negative (NEGATIVE) 01/02/18 23:45 Urine Nitrite Negative (NEGATIVE) 01/02/18 23:45 Urine Bilirubin Negative (<2.0 mg/dL) 01/02/18 23:45 Urine Urobilinogen 4.0 e.u/dl mg/dL (0.2-1.0) 01/02/18 23:45 Ur Leukocyte Esterase Negative (NEGATIVE) 01/02/18 23:45 Urine WBC (Auto) 26 /hpf (3-5) 01/02/18 23:45 Urine RBC (Auto) None /hpf (0-3) 01/02/18 23:45 Urine Mucus Many 01/02/18 23:45 lab noted repeat ua Assessment: 01/03/18 11:23 withdrawal sx Plan: continue detox
[2018-01-03] MEDS: NICOTINE POLACRILEX 2 MG GUM BUC PRN ×4 (12:38→22:26)
[2018-01-03] MEDS: THIAMINE HCL 100 MG TABLET (FP) PO SCH (22:24)
[2018-01-03] MEDS: ATORVASTATIN CA 20 MG TABLET (FP) PO SCH (22:24)
[2018-01-03] MEDS: risperiDONE 1 MG TABLET (FP) PO SCH (22:24)
[2018-01-04 01:49] LABS: URINE APPEARANCE CLEAR; URINE BILIRUBIN NEGATIVE (<2.0 mg/dL); URINE COLOR LTYELLOW; URINE GLUCOSE (UA) NEGATIVE (NEGATIVE); URINE KETONE NEGATIVE (NEGATIVE); URINE LEUK ESTERASE NEGATIVE (NEGATIVE); URINE NITRITE NEGATIVE (NEGATIVE); URINE PROTEIN NEGATIVE (NEGATIVE); URINE UROBILINOGEN NEGATIVE mg/dL (0.2-1.0)
[2018-01-04] MEDS: chlordiazePOXIDE HCL 25 MG CAPSULE PO SCH (05:20)
[2018-01-04] MEDS: NICOTINE POLACRILEX 2 MG GUM BUC PRN (05:21)
[2018-01-04] MEDS: metFORMIN HCL 500 MG TABLET (FP) PO SCH ×2 (06:06→17:24)
[2018-01-04] MEDS ORDERED: AMMONIUM LACTATE 12% LOTION 225 GM BOTTLE TP PRN (09:20)
[2018-01-04] MEDS: PRENATAL VITAMINS W/ FOLIC ACID TABLET (FP) PO SCH (10:10)
[2018-01-04] MEDS: amLODIPine BESYLATE 10 MG TABLET (FP) PO SCH (10:10)
[2018-01-04] MEDS: ASPIRIN COATED 81 MG TABLET.EC PO SCH (10:10)
[2018-01-04] MEDS: LIDOCAINE 5% TOPICAL PATCH TP SCH (10:11)
[2018-01-04] MEDS: HYDROCHLOROTHIAZIDE 25 MG TABLET (FP) PO SCH (10:11)
[2018-01-04] MEDS: ATENOLOL 25 MG TABLET (FP) PO SCH (10:11)
[2018-01-04] MEDS: NICOTINE POLACRILEX 4 MG GUM BUC PRN ×5 (10:13→22:44)
[2018-01-04] MEDS: chlordiazePOXIDE 5 MG CAPSULE PO SCH ×3 (10:13→22:41)
--- NOTE | 2018-01-04 11:39 | PN ---
S CIWA - CIWA Score Nausea/Vomitin-No Nausea/No Vomiting Muscle Tremors: 2 Anxiety: 3 Agitation: 3 Paroxysmal Sweats: No Perspiration Orientation: 0-Oriented Tacttile Disturbances: 0-None Auditory Disturbances: 0-None Visual Disturbances: 0-None Headache: 2-Mild CIWA-Ar Total Score: 10 BHS Progress Note (SOAP) Subjective: PATIENT C/O SHAKES, HEADACHE, ANXIETY AND RESTLESSNESS. Objective: 01/04/18 11:38 Vital Signs Temperature 96.9 F L 01/04/18 10:00 Pulse Rate 78 01/04/18 10:00 Respiratory Rate 18 01/04/18 10:00 Blood Pressure 141/81 01/04/18 10:00 O2 Sat by Pulse Oximetry (%) Laboratory Tests 01/02/18 01/02/18 01/03/18 09:44 23:45 05:18 WBC RBC Hgb Hct MCV MCH MCHC RDW Plt Count MPV Sodium Potassium Chloride Carbon Dioxide Anion Gap BUN Creatinine Creat Clearance w eGFR POC Glucometer 100 141 Random Glucose Calcium Total Bilirubin AST ALT Alkaline Phosphatase Total Protein Albumin Urine Color Adina Urine Appearance Turbid Urine pH 5.0 D Ur Specific [place] 1.032 Urine Protein 1+ H Urine Glucose (UA) Negative Urine Ketones Trace H Urine Blood Negative Urine Nitrite Negative Urine Bilirubin Negative Urine Urobilinogen 4.0 e.u/dl Ur Leukocyte Esterase Negative Urine WBC (Auto) 26 Urine RBC (Auto) None Urine Mucus Many RPR Titer 01/03/18 01/03/18 01/03/18 05:40 05:40 05:40 WBC 3.1 L RBC 4.21 Hgb 13.9 Hct 41.9 MCV 99.6 H MCH 33.1 MCHC 33.2 RDW 15.2 D Plt Count 156 MPV 10.4 D Sodium 141 Potassium 4.1 Chloride 103 Carbon Dioxide 29 Anion Gap 10 BUN 19 H Creatinine 1.1 Creat Clearance w eGFR > 60 POC Glucometer Random Glucose 72 L Calcium 8.9 Total Bilirubin 1.2 H AST 20 ALT 25 Alkaline Phosphatase 62 Total Protein 7.8 Albumin 4.1 Urine Color Urine Appearance Urine pH Ur Specific [place] Urine Protein Urine Glucose (UA) Urine Ketones Urine Blood Urine Nitrite Urine Bilirubin Urine Urobilinogen Ur Leukocyte Esterase Urine WBC (Auto) Urine RBC (Auto) Urine Mucus RPR Titer Nonreactive 01/03/18 01/04/18 19:37 05:19 WBC RBC Hgb Hct MCV MCH MCHC RDW Plt Count MPV Sodium Potassium Chloride Carbon Dioxide Anion Gap BUN Creatinine Creat Clearance w eGFR POC Glucometer 138 Random Glucose Calcium Total Bilirubin AST ALT Alkaline Phosphatase Total Protein Albumin Urine Color Ltyellow Urine Appearance Clear Urine pH 7.0 D Ur Specific [place] 1.012 Urine Protein Negative Urine Glucose (UA) Negative Urine Ketones Negative Urine Blood Negative Urine Nitrite Negative Urine Bilirubin Negative Urine Urobilinogen Negative Ur Leukocyte Esterase Negative Urine WBC (Auto) Urine RBC (Auto) Urine Mucus RPR Titer PE: ALERT AND ORIENTED X 3 SKIN WARM AND DRY EXT FULL ROM, +TREMORS AMB AD JEFF ANXIOUS, PACING IN HALLWAY Assessment: 01/04/18 11:39 WITHDRAWAL SX Plan: CONTINUE DETOX REGIMEN ENCOURAGE ORAL FLUIDS ADD AMMONIA LACTATE LOTION PRN CONTINUE TO MONITOR
[2018-01-04] MEDS: risperiDONE 1 MG TABLET (FP) PO SCH (22:41)
[2018-01-04] MEDS: ATORVASTATIN CA 20 MG TABLET (FP) PO SCH (22:41)
[2018-01-04] MEDS: THIAMINE HCL 100 MG TABLET (FP) PO SCH (22:41)
[2018-01-05] MEDS: chlordiazePOXIDE 5 MG CAPSULE PO SCH (05:25)
[2018-01-05] MEDS: NICOTINE POLACRILEX 4 MG GUM BUC PRN ×6 (05:26→22:25)
[2018-01-05] MEDS: metFORMIN HCL 500 MG TABLET (FP) PO SCH ×2 (06:09→16:47)
[2018-01-05] MEDS: ATENOLOL 25 MG TABLET (FP) PO SCH (10:19)
[2018-01-05] MEDS: LIDOCAINE 5% TOPICAL PATCH TP SCH (10:20)
[2018-01-05] MEDS: ASPIRIN COATED 81 MG TABLET.EC PO SCH (10:20)
[2018-01-05] MEDS: PRENATAL VITAMINS W/ FOLIC ACID TABLET (FP) PO SCH (10:20)
[2018-01-05] MEDS: amLODIPine BESYLATE 10 MG TABLET (FP) PO SCH (10:20)
[2018-01-05] MEDS: HYDROCHLOROTHIAZIDE 25 MG TABLET (FP) PO SCH (10:20)
[2018-01-05] MEDS: chlordiazePOXIDE HCL 10 MG CAPSULE PO SCH ×3 (10:21→22:24)
--- NOTE | 2018-01-05 15:35 | PN ---
BHS Progress Note (SOAP) Subjective: Denies any complaint Objective: 01/05/18 15:36 A & O x 3 Not in distress Vital Signs Temperature 98.5 F 01/05/18 13:59 Pulse Rate 65 01/05/18 13:59 Respiratory Rate 18 01/05/18 13:59 Blood Pressure 132/80 01/05/18 13:59 O2 Sat by Pulse Oximetry (%) Assessment: 01/05/18 15:36 withdrawal sx Plan: Continue detox
[2018-01-05] MEDS: THIAMINE HCL 100 MG TABLET (FP) PO SCH (22:23)
[2018-01-05] MEDS: ATORVASTATIN CA 20 MG TABLET (FP) PO SCH (22:24)
[2018-01-05] MEDS: risperiDONE 1 MG TABLET (FP) PO SCH (22:24)
[2018-01-06] MEDS: chlordiazePOXIDE HCL 10 MG CAPSULE PO SCH (05:33)
[2018-01-06 06:22] VITALS: TEMP 97.1
[2018-01-06] MEDS: metFORMIN HCL 500 MG TABLET (FP) PO SCH (07:00)
[2018-01-06 10:04] VITALS: BP 138/87; PULSE 76
[2018-01-06] MEDS: PRENATAL VITAMINS W/ FOLIC ACID TABLET (FP) PO SCH (10:10)
[2018-01-06] MEDS: HYDROCHLOROTHIAZIDE 25 MG TABLET (FP) PO SCH (10:10)
[2018-01-06] MEDS: ATENOLOL 25 MG TABLET (FP) PO SCH (10:10)
[2018-01-06] MEDS: LIDOCAINE 5% TOPICAL PATCH TP SCH (10:10)
[2018-01-06] MEDS: ASPIRIN COATED 81 MG TABLET.EC PO SCH (10:10)
[2018-01-06] MEDS: amLODIPine BESYLATE 10 MG TABLET (FP) PO SCH (10:10)
[2018-01-06] MEDS: NICOTINE POLACRILEX 4 MG GUM BUC PRN ×2 (10:12→12:58)
[2018-01-06] MEDS ORDERED: AMMONIUM LACTATE 12% LOTION 225 GM BOTTLE TP SCH (10:15)
--- NOTE | 2018-01-06 14:47 | DS ---
[facility] Detox Discharge Summary Admission Date: 01/02/18 Discharge Date: 01/06/18 - History Present History: Alcohol Dependence, Cannabis Dependence, Cocaine Dependence Additional Comments: Patient completed detox successfully. Patient accepted admission to [facility] inpatient rehab. Transportation from [facility] to picking tech patient today. Patient instructed to follow up with PCP after completing rehab. Pertinent Past History: Withdrawal symptoms Laboratory Tests 01/02/18 01/02/18 01/03/18 09:44 23:45 05:18 WBC RBC Hgb Hct MCV MCH MCHC RDW Plt Count MPV Sodium Potassium Chloride Carbon Dioxide Anion Gap BUN Creatinine Creat Clearance w eGFR POC Glucometer 100 141 Random Glucose Calcium Total Bilirubin AST ALT Alkaline Phosphatase Total Protein Albumin Urine Color [place] Urine Appearance Turbid Urine pH 5.0 D Ur Specific [place] 1.032 Urine Protein 1+ H Urine Glucose (UA) Negative Urine Ketones Trace H Urine Blood Negative Urine Nitrite Negative Urine Bilirubin Negative Urine Urobilinogen 4.0 e.u/dl Ur Leukocyte Esterase Negative Urine WBC (Auto) 26 Urine RBC (Auto) None Urine Mucus Many RPR Titer 01/03/18 01/03/18 01/03/18 05:40 05:40 05:40 WBC 3.1 L RBC 4.21 Hgb 13.9 Hct 41.9 MCV 99.6 H MCH 33.1 MCHC 33.2 RDW 15.2 D Plt Count 156 MPV 10.4 D Sodium 141 Potassium 4.1 Chloride 103 Carbon Dioxide 29 Anion Gap 10 BUN 19 H Creatinine 1.1 Creat Clearance w eGFR > 60 POC Glucometer Random Glucose 72 L Calcium 8.9 Total Bilirubin 1.2 H AST 20 ALT 25 Alkaline Phosphatase 62 Total Protein 7.8 Albumin 4.1 Urine Color Urine Appearance Urine pH Ur Specific [place] Urine Protein Urine Glucose (UA) Urine Ketones Urine Blood Urine Nitrite Urine Bilirubin Urine Urobilinogen Ur Leukocyte Esterase Urine WBC (Auto) Urine RBC (Auto) Urine Mucus RPR Titer Nonreactive 01/03/18 01/04/18 01/04/18 19:37 05:19 16:29 WBC RBC Hgb Hct MCV MCH MCHC RDW Plt Count MPV Sodium Potassium Chloride Carbon Dioxide Anion Gap BUN Creatinine Creat Clearance w eGFR POC Glucometer 138 135 Random Glucose Calcium Total Bilirubin AST ALT Alkaline Phosphatase Total Protein Albumin Urine Color Ltyellow Urine Appearance Clear Urine pH 7.0 D Ur Specific [place] 1.012 Urine Protein Negative Urine Glucose (UA) Negative Urine Ketones Negative Urine Blood Negative Urine Nitrite Negative Urine Bilirubin Negative Urine Urobilinogen Negative Ur Leukocyte Esterase Negative Urine WBC (Auto) Urine RBC (Auto) Urine Mucus RPR Titer 01/05/18 01/05/18 01/06/18 05:24 16:31 05:32 WBC RBC Hgb Hct MCV MCH MCHC RDW Plt Count MPV Sodium Potassium Chloride Carbon Dioxide Anion Gap BUN Creatinine Creat Clearance w eGFR POC Glucometer 132 120 134 Random Glucose Calcium Total Bilirubin AST ALT Alkaline Phosphatase Total Protein Albumin Urine Color Urine Appearance Urine pH Ur Specific [place] Urine Protein Urine Glucose (UA) Urine Ketones Urine Blood Urine Nitrite Urine Bilirubin Urine Urobilinogen Ur Leukocyte Esterase Urine WBC (Auto) Urine RBC (Auto) Urine Mucus RPR Titer Labs reviewed - Physical Exam Results Vital Signs: Vital Signs Temperature 97.1 F L 01/06/18 10:03 Pulse Rate 76 01/06/18 10:03 Respiratory Rate 18 01/06/18 10:03 Blood Pressure 138/87 01/06/18 10:03 O2 Sat by Pulse Oximetry (%) - Treatment Hospital Course: Detox Protocol Followed, Detoxed Safely, Responded well, Discharged Condition Good, Rehab Referral Accepted - Medication Discharge Medications: Ambulatory Orders Amlodipine Besylate [Norvasc -] 10 mg PO DAILY #14 tab 10/26/17 Aspirin Coated [Ecotrin -] 81 mg PO DAILY #14 tab 10/26/17 Atenolol [Tenormin -] 25 mg PO DAILY #14 tablet 10/26/17 Atorvastatin Ca [Lipitor] 20 mg PO HS #14 tablet 10/26/17 Baclofen 10 mg PO BID #14 tablet 10/26/17 Hydrochlorothiazide 25 mg PO DAILY 14 Days tablet 10/26/17 Ibuprofen 800 mg PO TID #30 tablet 10/26/17 Lidocaine 5% Patch [Lidoderm -] 1 patch TP DAILY #14 patch 10/26/17 Nicotine Patch [Nicoderm Patch -] 14 mg TD DAILY #14 patch 10/26/17 Nicotine Polacrilex [Nicorelief -] 4 mg BUC Q2H PRN #30 gum 10/26/17 [place]-3 Acid Ethyl Esters [Lovaza -] 1 gm PO DAILY #14 cap 10/26/17 metFORMIN HCL [Glucophage -] 500 mg PO BIDAC #30 tablet 10/26/17 Bupropion HCl [Wellbutrin Xl -] 300 mg PO DAILY #30 tab.sr.24h 10/29/17 Risperidone [Risperdal] 2 mg PO DAILY #30 tablet 10/29/17 - Diagnosis (1) Type 2 diabetes mellitus with hyperglycemia Status: Chronic (2) Alcohol dependence with uncomplicated withdrawal Status: Acute (3) Cannabis dependence, uncomplicated Status: Chronic (4) Cocaine dependence Status: Chronic Qualifiers: Substance use status: uncomplicated Qualified Code(s): F14.20 - Cocaine dependence, uncomplicated (5) Arthritis Status: Chronic (6) History of positive PPD Status: Chronic (7) Hypercholesteremia Status: Chronic (8) Hypertension Status: Chronic Qualifiers: Hypertension type: essential hypertension Qualified Code(s): I10 - Essential (primary) hypertension (9) Schizoaffective disorder Status: Chronic Qualifiers: Schizoaffective disorder type: depressive Qualified Code(s): F25.1 - Schizoaffective disorder, depressive type - AMA Did Patient Leave Against Medical Advice: No (Patient accepted rehab placement at [facility] )
== END 2018-01-06 13:39 | disposition home or self-care (01) | DRG 774 ==
LOC: YASAS 08:13 → Y3N 10:06
PROVIDERS: ADMIT Neuromusculoskeletal Medicine & OMM; ATTEND Neuromusculoskeletal Medicine & OMM
PROC: HZ2ZZZZ Detoxification Services for Substance Abuse Treatment (ICD-10-PCS; principal; 2018-01-02)
DX: F10.230 Alcohol dependence with withdrawal, uncomplicated (principal); F14.20 Cocaine dependence, uncomplicated; F12.20 Cannabis dependence, uncomplicated; F25.1 Schizoaffective disorder, depressive type; I10 Essential (primary) hypertension; E78.00 Pure hypercholesterolemia, unspecified; E11.65 Type 2 diabetes mellitus with hyperglycemia; Z79.84 Long term (current) use of oral hypoglycemic drugs; M12.9 Arthropathy, unspecified; M47.897 Other spondylosis, lumbosacral region; N17.9 Acute kidney failure, unspecified; R82.90 Unspecified abnormal findings in urine; R76.11 Nonspecific reaction to tuberculin skin test without active tuberculosis; R26.89 Other abnormalities of gait and mobility; Z99.89 Dependence on other enabling machines and devices
CPT/HCPCS: 36415; 80053; 81003; 81015; 82962; 85027; 86593; J2794

== ENCOUNTER 2018-09-02 14:07 | Inpatient (IN) | payer OTHER ==
[2018-09-02 17:48] VITALS: BMI 29.5
--- NOTE | 2018-09-02 19:05 | HP ---
CIWA Score Nausea/Vomitin Muscle Tremors: 1-None Visible, but [place] Anxiety: 3 Agitation: 2 Paroxysmal Sweats: No Perspiration Orientation: 0-Oriented Tacttile Disturbances: 1-Very Mild Itch/Numbness Auditory Disturbances: 0-None Visual Disturbances: 0-None Headache: 2-Mild CIWA-Ar Total Score: 12 - Admission Criteria OASAS Guidelines: Admission for Medically Managed Detox: Requires at least one of the followin. CIWA greater than 12 2. Seizures within the past 24 hours 3. Delirium tremens within the past 24 hours 4. Hallucinations within the past 24 hours 5. Acute intervention needed for co occurring medical disorder 6. Acute intervention needed for co occurring psychiatric disorder 7. Severe withdrawal that cannot be handled at a lower level of care (continued vomiting, continued diarrhea, abnormal vital signs) requiring intravenous medication and/or fluids 8. Admission ROS [facility] Chief Complaint: seeking help for alcohol and cocaine Allergies/Adverse Reactions: Allergies Allergy/AdvReac Type Severity Reaction Status Date / Time enalapril [Enalapril] Allergy Severe Swelling Verified 09/02/18 17:33 levofloxacin [From Levaquin] Allergy Severe Hives Verified 09/02/18 17:33 haloperidol [From Haldol] AdvReac Severe stiffness Verified 09/02/18 17:33 haloperidol lactate AdvReac Severe sfiffness Verified 09/02/18 17:33 [From Haldol] History of Present Illness: 63 y/o/m with PMHx of DM, HLD, HTN, schizoaffective disorder, spinal stenosis, arthritis, depression and anxiety here for alcohol and cocaine use. He was last here in December of last year and also went to another detox facility at the end of last year. He was able to stay drug free until three months ago. He has been drinking pint of liquor every other day. If he doesn't drink he starts to get the shakes. He denies any history of seizures or any recent blackouts. He is using $100 of cocaine daily which he uses by inhaling. He last used cocaine and alcohol 2 days ago. He smokes 8 cigarettes daily. He states he takes his medications daily and took his medications today. He lives by himself and is unemployed, SSI pending. He was seen at [facility] ER yesterday for heat exhaustion but he was not admitted. His longest period of sobriety was 2.5 years from [id number]. He has a history of a positive PPD in 2004 and was treated at that time. - Ebola screening Have you traveled outside of the country in the last 21 days: No Have you had contact with anyone from an Ebola affected area: No Do you have a fever: No - Review of Systems Constitutional: Loss of Appetite EENT: reports: Nose Congestion Respiratory: reports: Cough Cardiac: reports: Lightheadedness GI: reports: Nausea : reports: No Symptoms Reported Musculoskeletal: reports: Back Pain, Joint Pain Integumentary: reports: No Symptoms Reported Neuro: reports: Headache Endocrine: reports: No Symptoms Reported Hematology: reports: No Symptoms Reported Psychiatric: reports: Anxious, Depressed Patient History - Patient Medical History Hx Anemia: Yes (NO CURRENT MED) Hx Asthma: No Hx Chronic Obstructive Pulmonary Disease (COPD): No Hx Cancer: No Hx Cardiac Disorders: No Hx Congestive Heart Failure: No Hx Hypertension: Yes Hx Hypercholesterolemia: Yes (ATORVASTATIN) Hx Pacemaker: No HX Cerebrovascular Accident: No Hx Seizures: No Hx Dementia: No Hx Diabetes: Yes Hx Gastrointestinal Disorders: No Hx Liver Disease: No Hx Genitourinary Disorders: No Hx Sexually Transmitted Disorders: No Hx Renal Disease (ESRD): No Hx Thyroid Disease: No Hx Human Immunodeficiency Virus (HIV): No (NEGATIVE ) Hx Hepatitis C: No (DENIES) Hx Depression: Yes (ON MED) Hx Suicide Attempt: No (DENIES S/I) Hx Bipolar Disorder: No Hx Schizophrenia: Yes Other Medical History: no suicidal or homicidal ideations - Patient Surgical History Past Surgical History: Yes Hx Neurologic Surgery: No Hx Cataract Extraction: No Hx Cardiac Surgery: No Hx Lung Surgery: No Hx Breast Surgery: No Hx Breast Biopsy: No Hx Abdominal Surgery: No Hx Appendectomy: No Hx Cholecystectomy: No Hx Genitourinary Surgery: No Hx Section: No Hx Orthopedic Surgery: Yes (right hip replacement in 04/2003 at [facility] for avascular necrosis) Other Surgical History: history of fracture of right foot Anesthesia Reaction: No - PPD History Documented Results: Positive w/o proof Results: cxr(-)06/19/17 - Smoking Cessation Smoking history: Current every day smoker Have you smoked in the past 12 months: Yes Aproximately how many cigarettes per day: 8 Cigars Per Day: 0 Hx Chewing Tobacco Use: No Initiated information on smoking cessation: Yes 'Breaking Loose' booklet given: 09/02/18 - Substances abused Alcohol Substance route: Oral Frequency: 3-6 times per week Amount used: 1pint of cognac Age of first use: 15 Date of last use: 08/31/18 Cocaine Substance route: Inhalation Frequency: 1-2 times per week Amount used: $100 Age of first use: 20 Date of last use: 08/31/18 Family Disease History - Family Disease History Family Disease History: Heart Disease: Father (), Respiratory: Mother ( ), Other: Father, Mother Admission Physical Exam [facility] - Vital Signs Vital Signs: Vital Signs - 24 hr 09/02/18 09/02/18 17:45 18:05 Temperature 98.4 F 98.4 F Pulse Rate 66 66 Respiratory 16 16 Rate Blood Pressure 122/79 122/79 - Physical General Appearance: Yes: No Apparent Distress HEENTM: Yes: EOMI, Normocephalic, Other (poor oral dentition) Respiratory: Yes: Lungs Clear, Normal Breath Sounds, No Accessory Muscle Use Neck: Yes: Supple Cardiology: Yes: Regular Rhythm, Regular Rate, S1, S2 Abdominal: Yes: Normal Bowel Sounds, Non Tender, Soft. No: Distended, Guarding Back: Yes: Other (patient wearing a back brace) Extremities: Yes: Normal Capillary Refill. No: Swelling Neurological: Yes: it support consultant II-XII NML intact, Fully Oriented, Alert, Motor Strength 5/5 Integumentary: Yes: Dry - Diagnostic (1) Alcohol use disorder Current Visit: Yes Status: Acute (2) Cocaine use disorder Current Visit: Yes Status: Acute (3) Nicotine use disorder Current Visit: Yes Status: Acute Cleared for Admission [facility] - Detox or Rehab [facility] Level of Care: Medically Managed Detox Regimen/Protocol: Librium Breathalyzer - Breathalyzer Breathalyzer: 0 Urine Drug Screen - Test Device Lot number: [id number] Expiration date: 06/11/20 - Control Is test valid?: Yes - Results Drug screen NEGATIVE: No Urine drug screen results: [facility]-Cocaine Inpatient Rehab Admission - Rehab Decision to Admit Inpatient rehab admission?: No
--- NOTE | 2018-09-02 19:31 | PN ---
Teaching Attending Note Name of Resident: Coco Washington ATTENDING PHYSICIAN STATEMENT I saw and evaluated the patient. I reviewed the resident's note and discussed the case with the resident. I agree with the resident's findings and plan as documented. SUBJECTIVE: 63 yo with long of alcohol use disorder, here for detox.Was seen at [facility] ER yesterday for heat exhaustion. Alcohol- 1 pint of cognac every other day- CIWA score 12- anxiety OBJECTIVE: Vital Signs - 24 hr 09/02/18 09/02/18 17:45 18:05 Temperature 98.4 F 98.4 F Pulse Rate 66 66 Respiratory 16 16 Rate Blood Pressure 122/79 122/79 alert and oriented mildly tremurous ASSESSMENT AND PLAN: pt to be admitted for alcohol use disorder with mikki
[2018-09-02] MEDS ORDERED: BISMUTH SUBSALICYLATE 524 MG/30 ML UD PO PRN (19:36)
[2018-09-02] MEDS ORDERED: MAGNESIUM HYDROX 2400MG/30ML ORAL SUSPENSION 30 ML CUP PO PRN (19:36)
[2018-09-02] MEDS ORDERED: IBUPROFEN 400 MG TABLET (FP) PO PRN (19:36)
[2018-09-02] MEDS ORDERED: MAGNESIUM CITRATE 300 ML BOTTLE PO PRN (19:36)
[2018-09-02] MEDS ORDERED: ACETAMINOPHEN 325 MG TABLET (FP) PO PRN ×2 (19:36)
[2018-09-02] MEDS ORDERED: chlordiazePOXIDE HCL 10 MG CAPSULE PO PRN (19:36)
[2018-09-02] MEDS ORDERED: MENTHOL/PHENOL 1 EACH UD MM PRN (19:36)
[2018-09-02] MEDS ORDERED: METHOCARBAMOL 500 MG TABLET PO PRN (19:36)
[2018-09-02] MEDS ORDERED: MELATONIN 5 MG TABLETS PO PRN (19:36)
[2018-09-02] MEDS ORDERED: MAG HYDROX/AL HYDROX/SIMETH 30 ML UNIT-DOSE CUP PO PRN (19:36)
[2018-09-02] MEDS ORDERED: hydrOXYzine HCL 25 MG TABLET (FP) PO PRN (19:38)
[2018-09-02] MEDS: chlordiazePOXIDE HCL 25 MG CAPSULE PO SCH (22:49)
[2018-09-02] MEDS: ATORVASTATIN CA 20 MG TABLET (FP) PO SCH (22:49)
[2018-09-02] MEDS: THIAMINE HCL 100 MG TABLET (FP) PO SCH (22:50)
[2018-09-03] MEDS: chlordiazePOXIDE HCL 25 MG CAPSULE PO SCH ×3 (05:27→22:40)
[2018-09-03] MEDS: metFORMIN HCL 500 MG TABLET (FP) PO SCH ×2 (06:59→17:23)
--- NOTE | 2018-09-03 08:47 | CONSULT ---
[facility] Psychiatric Consult - Data Date of interview: 09/03/18 Admission source: [facility] ED Identifying data: Mr Noonan is a 63 years old single Black male, unemployed receiving pubilc assistance, domiciled seeking detox treatment for alcohol and cocaine Medical History: Significant for hypertension, dyslipidemia, type 2 diabetes mellitus, angina pectoris, spinal stenosis, lower back pain, arthritis L3-L4, history of prophylactic treatment for TB with [facility] (2004), right hip replacement for avascular necrosis (2003) and fracture right fibula in 1996. Smokes 10 cigarettes daily Psychiatric History: Patient is well known to resume writer from previous admissions to this facility. Reports onset of psychiatric disturbances in 2003(not in 1985 as reported in previous admission) when he was admitted to [facility] and diagnosed with Schizoaffective Disorder and PTSD. Reports multiple psychiatric admissions to various institutions including to [facility], [facility], [facility], [facility] and [facility] in [facility] and most recently from the [facility] from June-July 2017. Patient reports that he just completed(August 23) a 4 months work program at [facility] in [place]. Reports while there he was seeing Dr Ochoa and he was prescribed Wellbutrin XL 300 mg/day, Celexa 20 mg/day and Risperdal 6 mg/hs. Told resume writer that he is going back to Dr Yao at the [facility] for follow up. Reportedly he had several suicide attempts, most recently in January 2017,via deliberate self exposure to oncoming traffic. At present, denies experienicing psychotic, manic or depressive symptoms, S/H ideations. Physical/Sexual Abuse/Trauma History: Patient denies history of emotional, sexual or physical abuse as well as DV relationship. 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 Served in [employer], [employer] and [employer] in the . No report of flashbacks or nightmares. Additional Comment: Reports history of multiple previous arrests including 3 felony convictions. Reports being off parole for 8 years Mental Status Exam - Mental Status Exam Alert and Oriented to: Time, Place, Person Cognitive Function: Fair Patient Appearance: Well Groomed Mood: Hopeful, Euthymic Patient Behavior: Cooperative Speech Pattern: Clear Voice Loudness: Normal Thought Process: Intact, Goal Oriented Hallucinations: Denies Suicidal Ideation: Denies Homicidal Ideation: Denies Insight/Judgement: Poor Sleep: Well Appetite: Fair Muscle strength/Tone: Normal Gait/Station: Normal Psychiatric Findings - Problem List ([place] 1, 2,3) (1) Schizoaffective disorder Current Visit: No Status: Chronic Qualifiers: Schizoaffective disorder type: depressive Qualified Code(s): F25.1 - Schizoaffective disorder, depressive type Comment: History. Compliant with medication. (2) History of positive PPD Current Visit: No Status: Chronic (3) Alcohol dependence with uncomplicated withdrawal Current Visit: No Status: Acute (4) Cocaine dependence, uncomplicated Current Visit: No Status: Acute (5) Nicotine dependence Current Visit: No Status: Chronic Qualifiers: Nicotine product type: cigarettes Substance use status: in withdrawal Qualified Code(s): F17.213 - Nicotine dependence, cigarettes, with withdrawal (6) DM2 (diabetes mellitus, type 2) Current Visit: No Status: Chronic (7) Essential hypertension Current Visit: No Status: Chronic (8) Arthritis Current Visit: No Status: Chronic (9) Back pain Current Visit: No Status: Chronic Qualifiers: Back pain location: low back pain Chronicity: chronic Back pain laterality: midline Sciatica presence: without sciatica Qualified Code(s): M54.5 - Low back pain; G89.29 - Other chronic pain (10) Hypercholesteremia Current Visit: No Status: Chronic (11) Spinal stenosis, lumbosacral region Current Visit: No Status: Chronic (12) PPD positive Current Visit: Yes Status: Resolved - Initial Treatment Plan Initial Treatment Plan: 1) Continue Wellbutrin XL 300 mg po daily, Celexa 20 mg po daily and Risperdal 6 mg po HS. 2) Continue inpatient detoxification
--- NOTE | 2018-09-03 09:56 | PN ---
[facility] CIWA - CIWA Score Nausea/Vomitin Muscle Tremors: 2 Anxiety: 2 Agitation: 2 Paroxysmal Sweats: No Perspiration Orientation: 0-Oriented Tacttile Disturbances: 1-Very Mild Itch/Numbness Auditory Disturbances: 1-Very Mild Visual Disturbances: 0-None Headache: 2-Mild CIWA-Ar Total Score: 12 BHS Progress Note (SOAP) Subjective: alert,irritable,anxious,interrupted sleep,tremor Objective: 09/03/18 09:55 Vital Signs Temperature 97.9 F 09/03/18 09:42 Pulse Rate 60 09/03/18 09:42 Respiratory Rate 16 09/03/18 09:42 Blood Pressure 138/70 09/03/18 09:42 O2 Sat by Pulse Oximetry (%) 09/03/18 09:55 labs pending Assessment: 09/03/18 09:55 withdrawal symptom Plan: continue detox,librium regimen,bgm monitoring
[2018-09-03] MEDS ORDERED: ATENOLOL 50 MG TABLET (FP) PO SCH (10:00)
[2018-09-03] MEDS: CITALOPRAM HYDROBROMIDE 20 MG TABLET (FP) PO SCH (11:01)
[2018-09-03] MEDS: amLODIPine BESYLATE 10 MG TABLET (FP) PO SCH (11:01)
[2018-09-03] MEDS: HYDROCHLOROTHIAZIDE 25 MG TABLET (FP) PO SCH (11:01)
[2018-09-03] MEDS: OMEGA-3 ACID ETHYL ESTERS (FATTY-ACIDS) 1 GM CAPSULE (FP) PO SCH (11:01)
[2018-09-03] MEDS: risperiDONE 2 MG TABLET PO SCH (11:01)
[2018-09-03] MEDS: PRENATAL VITAMINS W/ FOLIC ACID TABLET (FP) PO SCH (11:01)
[2018-09-03] MEDS: ATENOLOL 25 MG TABLET (FP) PO SCH (11:02)
[2018-09-03] MEDS: NICOTINE POLACRILEX 4 MG GUM BUC PRN ×2 (11:05→17:23)
[2018-09-03 12:10] LABS: ALBUMIN 3.3 g/dl (3.4-5.0); BILIRUBIN,TOTAL 0.4 mg/dL (0.2-1); BLOOD UREA NITROGEN 12.8 mg/dL (7-18); CALCIUM 9.6 mg/dL (8.5-10.1); CREATININE 1.2 mg/dL (0.55-1.3); POTASSIUM 3.9 mmol/L (3.5-5.1); TOT PROT 6.9 g/dl (6.4-8.2)
[2018-09-03 12:23] LABS: HEMATOCRIT 38.7 % (35.4-49); HEMOGLOBIN 13.4 GM/dL (11.7-16.9); MCHC 34.6 g/dl (32.0-35.9); MEAN CELL VOLUME 101.3 fl (80-96); MEAN PLT VOLUME 9.2 fl (7.5-11.1); PLATELET COUNT 177 K/MM3 (134-434); RBC 3.82 M/mm3 (4.00-5.60); WHITE BLOOD COUNT 2.6 K/mm3 (4.0-10.0)
[2018-09-03] MEDS: THIAMINE HCL 100 MG TABLET (FP) PO SCH (22:40)
[2018-09-03] MEDS: ATORVASTATIN CA 20 MG TABLET (FP) PO SCH (22:40)
[2018-09-04] MEDS: chlordiazePOXIDE 5 MG CAPSULE PO SCH ×3 (06:17→22:57)
[2018-09-04] MEDS: metFORMIN HCL 500 MG TABLET (FP) PO SCH ×2 (06:23→17:43)
[2018-09-04] MEDS: NICOTINE POLACRILEX 4 MG GUM BUC PRN ×3 (06:24→19:25)
[2018-09-04] MEDS: PRENATAL VITAMINS W/ FOLIC ACID TABLET (FP) PO SCH (10:45)
[2018-09-04] MEDS: amLODIPine BESYLATE 10 MG TABLET (FP) PO SCH (10:45)
[2018-09-04] MEDS: OMEGA-3 ACID ETHYL ESTERS (FATTY-ACIDS) 1 GM CAPSULE (FP) PO SCH (10:45)
[2018-09-04] MEDS: CITALOPRAM HYDROBROMIDE 20 MG TABLET (FP) PO SCH (10:46)
[2018-09-04] MEDS: ATENOLOL 25 MG TABLET (FP) PO SCH (10:46)
[2018-09-04] MEDS: risperiDONE 2 MG TABLET PO SCH (10:46)
[2018-09-04] MEDS: HYDROCHLOROTHIAZIDE 25 MG TABLET (FP) PO SCH (10:46)
--- NOTE | 2018-09-04 13:22 | PN ---
S CIWA - CIWA Score Nausea/Vomitin Muscle Tremors: 3 Anxiety: 3 Agitation: 3 Paroxysmal Sweats: 2 Orientation: 0-Oriented Tacttile Disturbances: 0-None Auditory Disturbances: 0-None Visual Disturbances: 0-None Headache: 0-None Present CIWA-Ar Total Score: 13 BHS Progress Note (SOAP) Subjective: here for alcohol and cocaine use. Pt had cxray today for pos PPD hx O: Vital Signs - 24 hr 09/03/18 09/03/18 09/04/18 17:34 20:23 00:30 Temperature 97.3 F L 97.7 F Pulse Rate 60 62 Respiratory 20 20 18 Rate Blood Pressure 143/74 146/78 09/04/18 09/04/18 09/04/18 03:30 06:20 09:15 Temperature 97.9 F 97.5 F L Pulse Rate 64 64 Respiratory 18 18 17 Rate Blood Pressure 125/72 149/84 09/04/18 13:39 Temperature 97.3 F L Pulse Rate 67 Respiratory 17 Rate Blood Pressure 121/71 Laboratory Tests 09/03/18 09/03/18 09/03/18 07:00 07:00 07:00 WBC 2.6 L RBC 3.82 L Hgb 13.4 Hct 38.7 MCV 101.3 H MCH 35.0 H MCHC 34.6 RDW 14.0 Plt Count 177 MPV 9.2 D Sodium 142 Potassium 3.9 Chloride 107 Carbon Dioxide 30 Anion Gap 5 L BUN 12.8 Creatinine 1.2 Est GFR (CKD-EPI)AfAm 75.19 Est GFR (CKD-EPI)NonAf 64.87 Random Glucose 104 Calcium 9.6 Total Bilirubin 0.4 AST 10 L ALT 31 Alkaline Phosphatase 52 Total Protein 6.9 Albumin 3.3 L RPR Titer Nonreactive nl VS and labs a/p: continue alcohol detox protocol- pt doing well
[2018-09-04] MEDS: ATORVASTATIN CA 20 MG TABLET (FP) PO SCH (22:57)
[2018-09-04] MEDS: THIAMINE HCL 100 MG TABLET (FP) PO SCH (22:58)
[2018-09-05] MEDS ORDERED: chlordiazePOXIDE HCL 10 MG CAPSULE PO PRN
[2018-09-05] MEDS: NICOTINE POLACRILEX 4 MG GUM BUC PRN ×3 (06:07→18:07)
[2018-09-05] MEDS: chlordiazePOXIDE HCL 10 MG CAPSULE PO SCH ×3 (06:07→22:44)
[2018-09-05] MEDS: metFORMIN HCL 500 MG TABLET (FP) PO SCH ×2 (06:09→17:30)
[2018-09-05] MEDS: risperiDONE 2 MG TABLET PO SCH (10:59)
[2018-09-05] MEDS: OMEGA-3 ACID ETHYL ESTERS (FATTY-ACIDS) 1 GM CAPSULE (FP) PO SCH (11:00)
[2018-09-05] MEDS: ATENOLOL 25 MG TABLET (FP) PO SCH (11:00)
[2018-09-05] MEDS: amLODIPine BESYLATE 10 MG TABLET (FP) PO SCH (11:00)
[2018-09-05] MEDS: CITALOPRAM HYDROBROMIDE 20 MG TABLET (FP) PO SCH (11:00)
[2018-09-05] MEDS: PRENATAL VITAMINS W/ FOLIC ACID TABLET (FP) PO SCH (11:00)
[2018-09-05] MEDS: HYDROCHLOROTHIAZIDE 25 MG TABLET (FP) PO SCH (11:02)
--- NOTE | 2018-09-05 13:05 | PN ---
S CIWA - CIWA Score Nausea/Vomitin-Mild Nausea/No Vomiting Muscle Tremors: 1-None Visible, but [place] Anxiety: 2 Agitation: 2 Paroxysmal Sweats: No Perspiration Orientation: 0-Oriented Tacttile Disturbances: 1-Very Mild Itch/Numbness Auditory Disturbances: 0-None Visual Disturbances: 0-None Headache: 2-Mild CIWA-Ar Total Score: 9 BHS Progress Note (SOAP) Subjective: alert,irritable,anxious,interrupted sleep Objective: 09/05/18 13:04 Vital Signs Temperature 97.2 F L 09/05/18 09:23 Pulse Rate 65 09/05/18 09:23 Respiratory Rate 18 09/05/18 09:23 Blood Pressure 142/85 09/05/18 09:23 O2 Sat by Pulse Oximetry (%) Assessment: 09/05/18 13:04 withdrawal symptom Plan: continue detox,librium regimen,discharge in am
[2018-09-05] MEDS: THIAMINE HCL 100 MG TABLET (FP) PO SCH (22:44)
[2018-09-05] MEDS: ATORVASTATIN CA 20 MG TABLET (FP) PO SCH (22:44)
[2018-09-06] MEDS ORDERED: chlordiazePOXIDE HCL 10 MG CAPSULE PO ONE (05:00)
[2018-09-06] MEDS: NICOTINE POLACRILEX 4 MG GUM BUC PRN ×2 (05:48→10:48)
[2018-09-06 06:10] VITALS: TEMP 97.5
--- NOTE | 2018-09-06 08:58 | DS ---
[facility] Detox Discharge Summary Admission Date: 09/02/18 Discharge Date: 09/06/18 - History Present History: Alcohol Dependence, Cannabis Dependence, Cocaine Dependence - Physical Exam Results Vital Signs: Vital Signs Temperature 97.5 F L 09/06/18 06:09 Pulse Rate 69 09/06/18 06:09 Respiratory Rate 18 09/06/18 06:09 Blood Pressure 153/81 09/06/18 06:09 O2 Sat by Pulse Oximetry (%) Pertinent Admission Physical Exam Findings: pt arrived in withdrawals Laboratory Tests 09/02/18 09/03/18 09/03/18 22:53 05:29 07:00 WBC 2.6 L RBC 3.82 L Hgb 13.4 Hct 38.7 MCV 101.3 H MCH 35.0 H MCHC 34.6 RDW 14.0 Plt Count 177 MPV 9.2 D Sodium Potassium Chloride Carbon Dioxide Anion Gap BUN Creatinine Est GFR (CKD-EPI)AfAm Est GFR (CKD-EPI)NonAf POC Glucometer 120 105 Random Glucose Calcium Total Bilirubin AST ALT Alkaline Phosphatase Total Protein Albumin RPR Titer 09/03/18 09/03/18 09/03/18 07:00 07:00 16:44 WBC RBC Hgb Hct MCV MCH MCHC RDW Plt Count MPV Sodium 142 Potassium 3.9 Chloride 107 Carbon Dioxide 30 Anion Gap 5 L BUN 12.8 Creatinine 1.2 Est GFR (CKD-EPI)AfAm 75.19 Est GFR (CKD-EPI)NonAf 64.87 POC Glucometer 131 Random Glucose 104 Calcium 9.6 Total Bilirubin 0.4 AST 10 L ALT 31 Alkaline Phosphatase 52 Total Protein 6.9 Albumin 3.3 L RPR Titer Nonreactive 09/04/18 09/04/18 09/05/18 06:20 16:37 06:04 WBC RBC Hgb Hct MCV MCH MCHC RDW Plt Count MPV Sodium Potassium Chloride Carbon Dioxide Anion Gap BUN Creatinine Est GFR (CKD-EPI)AfAm Est GFR (CKD-EPI)NonAf POC Glucometer 134 84 141 Random Glucose Calcium Total Bilirubin AST ALT Alkaline Phosphatase Total Protein Albumin RPR Titer 09/05/18 09/06/18 16:47 05:46 WBC RBC Hgb Hct MCV MCH MCHC RDW Plt Count MPV Sodium Potassium Chloride Carbon Dioxide Anion Gap BUN Creatinine Est GFR (CKD-EPI)AfAm Est GFR (CKD-EPI)NonAf POC Glucometer 103 116 Random Glucose Calcium Total Bilirubin AST ALT Alkaline Phosphatase Total Protein Albumin RPR Titer today pt is aaox3 ambulating no acute distress no s/s of withdrawals - Treatment Hospital Course: Detox Protocol Followed, Detoxed Safely, Responded well, Discharged Condition Good, Rehab Referral Accepted Patient has Accepted a Rehab Referral to: referred to [facility] inpatient rehab - Medication Discharge Medications: Ambulatory Orders Amlodipine Besylate [Norvasc -] 10 mg PO DAILY #14 tab 10/26/17 Aspirin Coated [Ecotrin -] 81 mg PO DAILY #14 tab 10/26/17 Atenolol [Tenormin -] 25 mg PO DAILY #14 tablet 10/26/17 Atorvastatin Ca [Lipitor] 20 mg PO HS #14 tablet 10/26/17 Baclofen 10 mg PO BID #14 tablet 10/26/17 Hydrochlorothiazide 25 mg PO DAILY 14 Days tablet 10/26/17 Lidocaine 5% Patch [Lidoderm -] 1 patch TP DAILY #14 patch 10/26/17 Nicotine Polacrilex [Nicorelief -] 4 mg BUC Q2H PRN #30 gum 10/26/17 Lampe-3 Acid Ethyl Esters [Lovaza -] 1 gm PO DAILY #14 cap 10/26/17 metFORMIN HCL [Glucophage -] 500 mg PO BIDAC #30 tablet 10/26/17 Bupropion HCl [Wellbutrin Xl -] 300 mg PO DAILY #30 tab.sr.24h 10/29/17 Ibuprofen 400 mg PO TID PRN 09/02/18 Risperidone [Risperdal] 6 mg PO DAILY 09/02/18 - Diagnosis (1) Cocaine use disorder Current Visit: Yes Status: Chronic (2) Nicotine use disorder Current Visit: Yes Status: Chronic (3) PPD positive Current Visit: Yes Status: Chronic (4) Alcohol dependence with uncomplicated withdrawal Current Visit: Yes Status: Chronic (5) Cocaine dependence, uncomplicated Current Visit: Yes Status: Acute (6) Insomnia Current Visit: No Status: Acute Qualifiers: Insomnia type: unspecified Qualified Code(s): G47.00 - Insomnia, unspecified (7) Marihuana abuse Current Visit: Yes Status: Chronic (8) Opiate dependence Current Visit: No Status: Acute (9) Use of cane as ambulatory aid Current Visit: No Status: Acute (10) Arthritis Current Visit: No Status: Chronic (11) Back pain Current Visit: No Status: Chronic Qualifiers: Back pain location: low back pain Chronicity: chronic Back pain laterality: midline Sciatica presence: without sciatica Qualified Code(s): M54.5 - Low back pain; G89.29 - Other chronic pain (12) Cannabis dependence, uncomplicated Current Visit: Yes Status: Chronic (13) Chronic pain Current Visit: No Status: Chronic (14) Cocaine dependence Current Visit: No Status: Chronic Qualifiers: Substance use status: uncomplicated Qualified Code(s): F14.20 - Cocaine dependence, uncomplicated (15) DM2 (diabetes mellitus, type 2) Current Visit: Yes Status: Chronic Qualifiers: Diabetes mellitus terminal operations supervisor insulin use: unspecified terminal operations supervisor insulin use status Diabetes mellitus complication status: without complication Qualified Code(s): E11.9 - Type 2 diabetes mellitus without complications (16) Essential hypertension Current Visit: No Status: Chronic (17) History of depression Current Visit: No Status: Chronic (18) Hx of spinal stenosis Current Visit: No Status: Chronic (19) Hypercholesteremia Current Visit: Yes Status: Chronic (20) Nicotine dependence Current Visit: Yes Status: Chronic Qualifiers: Nicotine product type: cigarettes Substance use status: uncomplicated Qualified Code(s): F17.210 - Nicotine dependence, cigarettes, uncomplicated (21) Schizoaffective disorder Current Visit: No Status: Chronic Qualifiers: Schizoaffective disorder type: depressive Qualified Code(s): F25.1 - Schizoaffective disorder, depressive type (22) Spinal stenosis, lumbosacral region Current Visit: No Status: Chronic - AMA Did Patient Leave Against Medical Advice: No (referred to inpatient rehab)
[2018-09-06 09:47] VITALS: BP 162/98; PULSE 70
[2018-09-06] MEDS: OMEGA-3 ACID ETHYL ESTERS (FATTY-ACIDS) 1 GM CAPSULE (FP) PO SCH (10:47)
[2018-09-06] MEDS: ATENOLOL 25 MG TABLET (FP) PO SCH (10:47)
[2018-09-06] MEDS: risperiDONE 2 MG TABLET PO SCH (10:47)
[2018-09-06] MEDS: HYDROCHLOROTHIAZIDE 25 MG TABLET (FP) PO SCH (10:47)
[2018-09-06] MEDS: PRENATAL VITAMINS W/ FOLIC ACID TABLET (FP) PO SCH (10:47)
[2018-09-06] MEDS: amLODIPine BESYLATE 10 MG TABLET (FP) PO SCH (10:47)
[2018-09-06] MEDS: CITALOPRAM HYDROBROMIDE 20 MG TABLET (FP) PO SCH (10:48)
== END 2018-09-06 12:35 | disposition home or self-care (01) | DRG 774 ==
LOC: YASAS 14:07 → Y6N 19:56
PROVIDERS: ADMIT Surgery; ATTEND Surgery
PROC: HZ2ZZZZ Detoxification Services for Substance Abuse Treatment (ICD-10-PCS; principal; 2018-09-02)
DX: F10.230 Alcohol dependence with withdrawal, uncomplicated (principal); F14.20 Cocaine dependence, uncomplicated; F12.20 Cannabis dependence, uncomplicated; F17.210 Nicotine dependence, cigarettes, uncomplicated; F25.1 Schizoaffective disorder, depressive type; F32.9 Major depressive disorder, single episode, unspecified; G47.00 Insomnia, unspecified; E11.9 Type 2 diabetes mellitus without complications; Z79.84 Long term (current) use of oral hypoglycemic drugs; I10 Essential (primary) hypertension; M54.5 Low back pain; G89.29 Other chronic pain; E78.00 Pure hypercholesterolemia, unspecified; M48.07 Spinal stenosis, lumbosacral region; R76.11 Nonspecific reaction to tuberculin skin test without active tuberculosis; Z99.89 Dependence on other enabling machines and devices
CPT/HCPCS: 36415; 71046-TC-FY; 80053; 82962; 85027; 86593

== ENCOUNTER 2018-12-01 19:18 | Inpatient (IN) | payer OTHER ==
[2018-12-01 19:56] VITALS: BMI 26.2
--- NOTE | 2018-12-01 21:35 | HP ---
CIWA Score Nausea/Vomitin-No Nausea/No Vomiting Muscle Tremors: None Anxiety: 4-Mod. Anxious/Guarded Agitation: 4-Moderately Restless Paroxysmal Sweats: 3 Orientation: 1-Uncertain about Date Tacttile Disturbances: 3-Moderate Itch/Numb/Burn (itching) Auditory Disturbances: 0-None (itching) Visual Disturbances: 0-None Headache: 2-Mild CIWA-Ar Total Score: 17 - Admission Criteria OASAS Guidelines: Admission for Medically Managed Detox: Requires at least one of the followin. CIWA greater than 12 2. Seizures within the past 24 hours 3. Delirium tremens within the past 24 hours 4. Hallucinations within the past 24 hours 5. Acute intervention needed for co occurring medical disorder 6. Acute intervention needed for co occurring psychiatric disorder 7. Severe withdrawal that cannot be handled at a lower level of care (continued vomiting, continued diarrhea, abnormal vital signs) requiring intravenous medication and/or fluids 8. Admitting History and Physical - Smoking History Smoking history: Current every day smoker Have you smoked in the past 12 months: Yes Aproximately how many cigarettes per day: 8 - Alcohol/Substance Use Hx Alcohol Use: Yes Admission [facility] Chief Complaint: C/O WITHDRAWAL SX'S Allergies/Adverse Reactions: Allergies Allergy/AdvReac Type Severity Reaction Status Date / Time enalapril [Enalapril] Allergy Severe Swelling Verified 12/01/18 20:58 levofloxacin [From Levaquin] Allergy Severe Hives Verified 12/01/18 20:58 haloperidol [From Haldol] AdvReac Severe stiffness Verified 12/01/18 20:58 haloperidol lactate AdvReac Severe sfiffness Verified 12/01/18 20:58 [From Haldol] History of Present Illness: 63 Y.O. MALE WITH ALCOHOLISM HERE FOR DETOX. CLIENT IS SELF REFERRED. KNOWN TO THIS PROGRAM. LAST HERE 08/2018. CLIENT REPORTS RELAPSING AFTER 6 WEEKS. REPORTS DAILY ALCOHOL INTAKE . LAST USE 1 DAY AGO.PRESENTS WITH C/O WITHDRAWAL SX'S. DENIES EYE DIRECTOR WEB, AVH, SI/HI, SEIZURES BUT DOES ADMIT TO HX/O BLACK OUTS. LONGEST CLEAN TIME 2.5 YEARS. THIS PAST YEAR 7 MONTHS CLEAN RELAPSING 08/2018. LIVES ALONE, PUBLIC ASSIST, DENIES LEGALS Exam Limitations: No Limitations - Ebola screening Have you traveled outside of the country in the last 21 days: No (N) Have you had contact with anyone from an Ebola affected area: No Do you have a fever: No - Review of Systems Constitutional: Chills, Loss of Appetite, Night Sweats, Unintentional Wgt. Loss EENT: reports: Blurred Vision (CORRECTIVE LENSES), Dental Problems (MISSING TEETH) Respiratory: reports: No Symptoms reported Cardiac: reports: No Symptoms Reported GI: reports: Nausea, Poor Appetite, Poor Fluid Intake, Abdominal cramping : reports: No Symptoms Reported Musculoskeletal: reports: Back Pain (CHRONIC) Integumentary: reports: Dryness, Pruritus Neuro: reports: Headache, Other (BLACK OUTS) Endocrine: reports: Other (TYPE 2 DM) Hematology: reports: No Symptoms Reported Psychiatric: reports: Orientated x3, Anxious, Depressed Other Systems: Reviewed and Negative Patient History - Patient Medical History Hx Anemia: Yes Hx Asthma: No Hx Chronic Obstructive Pulmonary Disease (COPD): No Hx Cancer: No Hx Cardiac Disorders: No Hx Congestive Heart Failure: No Hx Hypertension: Yes Hx Hypercholesterolemia: Yes Hx Pacemaker: No HX Cerebrovascular Accident: No Hx Seizures: No Hx Dementia: No Hx Diabetes: No Hx Gastrointestinal Disorders: No Hx Liver Disease: No Hx Genitourinary Disorders: No Hx Sexually Transmitted Disorders: No Hx Renal Disease (ESRD): No Hx Thyroid Disease: No Hx Human Immunodeficiency Virus (HIV): No Hx Hepatitis C: No (DENIES) Hx Depression: Yes (ON MED) Hx Suicide Attempt: No Hx Bipolar Disorder: No Hx Schizophrenia: Yes - Patient Surgical History Past Surgical History: Yes Hx Neurologic Surgery: No Hx Cataract Extraction: No Hx Cardiac Surgery: No Hx Lung Surgery: No Hx Breast Surgery: No Hx Breast Biopsy: No Hx Abdominal Surgery: No Hx Appendectomy: No Hx Cholecystectomy: No Hx Genitourinary Surgery: No Hx Section: No Hx Orthopedic Surgery: Yes (right hip replacement in 04/2003 at [facility] for avascular necrosis) Other Surgical History: history of fracture of right foot Anesthesia Reaction: No - PPD History Previous Implant?: Yes Documented Results: Positive w/o proof Implanted On Prior [facility] Admission?: No Results: cxr(-)09/03/2018 PPD to be Administered?: No - Smoking Cessation Smoking history: Current every day smoker Have you smoked in the past 12 months: Yes Aproximately how many cigarettes per day: 10 Cigars Per Day: 0 Hx Chewing Tobacco Use: No Initiated information on smoking cessation: Yes 'Breaking Loose' booklet given: 12/01/18 - Substance & Tx. History Hx Alcohol Use: Yes Hx Substance Use: Yes Substance Use Type: Cocaine, Marijuana Hx Substance Use Treatment: Yes ([facility]) - Substances abused Alcohol Substance route: Oral Frequency: 3-6 times per week Amount used: 1pint of cognac Age of first use: 15 Date of last use: 11/30/18 Cocaine Substance route: Inhalation Frequency: 1-2 times per week Amount used: $50 Age of first use: 20 Date of last use: 11/30/18 Admission Physical Exam [facility] - Vital Signs Vital Signs: Vital Signs - 24 hr 12/01/18 12/01/18 19:53 21:08 Temperature 98.4 F 98.4 F Pulse Rate 61 61 Respiratory 18 18 Rate Blood Pressure 174/95 H 174/95 H - Physical General Appearance: Yes: Mild Distress HEENTM: Yes: EOMI, Normocephalic, Normal Voice, WILLY, Pharynx Normal, Other ( MISSING TEETH GLASSES) Respiratory: Yes: Chest Non-Tender, Lungs Clear, Normal Breath Sounds, No Respiratory Distress, No Accessory Muscle Use Neck: Yes: No masses,lesions,Nodules, Supple, Trachea in good position Breast: Yes: Breast Exam Deferred Cardiology: Yes: Regular Rhythm, Regular Rate, S1, S2 Abdominal: Yes: Non Tender, Soft, Increased Bowel Sounds Genitourinary: Yes: Within Normal Limits Back: Yes: Normal Inspection Musculoskeletal: Yes: Gait Steady Extremities: Yes: Normal Inspection, Normal Range of Motion, Non-Tender Neurological: Yes: Fully Oriented, Alert, Motor Strength 5/5, Depressed Affect Integumentary: Yes: Dry, Warm Lymphatic: Yes: Within Normal Limits - Diagnostic (1) Cocaine dependence, uncomplicated Current Visit: Yes Status: Acute (2) Alcohol dependence with uncomplicated withdrawal Current Visit: Yes Status: Acute (3) Arthritis Current Visit: Yes Status: Chronic (4) Back pain Current Visit: Yes Status: Chronic Qualifiers: Back pain location: low back pain Chronicity: chronic Back pain laterality: midline Sciatica presence: without sciatica Qualified Code(s): M54.5 - Low back pain; G89.29 - Other chronic pain (5) Cannabis dependence, uncomplicated Current Visit: Yes Status: Chronic (6) DM2 (diabetes mellitus, type 2) Current Visit: Yes Status: Chronic Qualifiers: Diabetes mellitus half-way insulin use: unspecified rn long term care insulin use status Diabetes mellitus complication status: without complication Qualified Code(s): E11.9 - Type 2 diabetes mellitus without complications (7) Essential hypertension Current Visit: Yes Status: Chronic (8) Hx of spinal stenosis Current Visit: Yes Status: Chronic (9) Hypercholesteremia Current Visit: Yes Status: Chronic (10) Nicotine dependence Current Visit: Yes Status: Chronic Qualifiers: Nicotine product type: cigarettes Substance use status: uncomplicated Qualified Code(s): F17.210 - Nicotine dependence, cigarettes, uncomplicated (11) PPD positive Current Visit: Yes Status: Chronic (12) Schizoaffective disorder Current Visit: Yes Status: Chronic Qualifiers: Schizoaffective disorder type: depressive Qualified Code(s): F25.1 - Schizoaffective disorder, depressive type Comment: History. Compliant with medication. Cleared for Admission [facility] - Detox or Rehab [facility] Level of Care: Medically Managed Detox Regimen/Protocol: Librium Claeared for Rehab Admission: No Breathalyzer - Breathalyzer Breathalyzer: 0 Urine Drug Screen - Test Device Lot number: [id number] Expiration date: 07/12/20 - Control Is test valid?: Yes - Results Drug screen NEGATIVE: No Urine drug screen results: THC-Marijuana, JESUS ALBERTO-Cocaine Inpatient Rehab Admission - Rehab Decision to Admit Inpatient rehab admission?: No
[2018-12-01] MEDS ORDERED: MAGNESIUM HYDROX 2400MG/30ML ORAL SUSPENSION 30 ML CUP PO PRN (21:39)
[2018-12-01] MEDS ORDERED: DICYCLOMINE HCL 10 MG CAPSULE PO PRN (21:39)
[2018-12-01] MEDS ORDERED: BISMUTH SUBSALICYLATE 524 MG/30 ML UD PO PRN (21:39)
[2018-12-01] MEDS ORDERED: MENTHOL/PHENOL 1 EACH UD MM PRN (21:39)
[2018-12-01] MEDS ORDERED: METHOCARBAMOL 500 MG TABLET PO PRN (21:39)
[2018-12-01] MEDS ORDERED: guaiFENesin 200 MG/10 ML 10 ML UNIT-DOSE CUPS PO PRN (21:39)
[2018-12-01] MEDS ORDERED: ONDANSETRON *ODT* 4 MG TABLET SL PRN (21:39)
[2018-12-01] MEDS ORDERED: ACETAMINOPHEN 325 MG TABLET (FP) PO PRN ×2 (21:39)
[2018-12-01] MEDS ORDERED: IBUPROFEN 400 MG TABLET (FP) PO PRN (21:39)
[2018-12-01] MEDS ORDERED: hydrOXYzine PAMOATE 25 MG CAPSULE (FP) PO PRN (21:39)
[2018-12-01] MEDS ORDERED: chlordiazePOXIDE HCL 10 MG CAPSULE PO PRN (21:39)
[2018-12-01] MEDS ORDERED: P-EPHED 60MG/TRIPROLIDI 2.5MG TABLET PO PRN (21:39)
[2018-12-01] MEDS ORDERED: MAG HYDROX/AL HYDROX/SIMETH 30 ML UNIT-DOSE CUP PO PRN (21:39)
[2018-12-01] MEDS ORDERED: MAGNESIUM CITRATE 300 ML BOTTLE PO PRN (21:39)
[2018-12-01] MEDS ORDERED: MELATONIN 5 MG TABLETS PO PRN (21:39)
[2018-12-01] MEDS: chlordiazePOXIDE HCL 25 MG CAPSULE PO SCH (22:59)
[2018-12-01] MEDS: ATORVASTATIN CA 20 MG TABLET (FP) PO SCH (22:59)
[2018-12-01] MEDS: THIAMINE HCL 100 MG TABLET (FP) PO SCH (22:59)
[2018-12-02] MEDS: chlordiazePOXIDE HCL 25 MG CAPSULE PO SCH ×3 (05:55→22:16)
[2018-12-02] MEDS: metFORMIN HCL 500 MG TABLET (FP) PO SCH ×2 (06:13→16:59)
[2018-12-02 09:54] LABS: HEMATOCRIT 38.5 % (35.4-49); HEMOGLOBIN 13.3 GM/dL (11.7-16.9); MCH 34.6 pg (25.7-33.7); MCHC 34.6 g/dl (32.0-35.9); MEAN CELL VOLUME 100.2 fl (80-96); MEAN PLT VOLUME 9.4 fl (7.5-11.1); PLATELET COUNT 180 K/MM3 (134-434); RBC 3.84 M/mm3 (4.00-5.60); RDW 14.8 % (11.9-15.9); WHITE BLOOD COUNT 2.5 K/mm3 (4.0-10.0)
[2018-12-02 09:58] LABS: BILIRUBIN,TOTAL 0.6 mg/dL (0.2-1); BLOOD UREA NITROGEN 10.7 mg/dL (7-18); CREATININE 1.3 mg/dL (0.55-1.3); POTASSIUM 3.4 mmol/L (3.5-5.1); TOT PROT 6.5 g/dl (6.4-8.2)
[2018-12-02] MEDS ORDERED: ATENOLOL 50 MG TABLET (FP) PO SCH (10:00)
[2018-12-02] MEDS: amLODIPine BESYLATE 10 MG TABLET (FP) PO SCH (10:38)
[2018-12-02] MEDS: NICOTINE 14 MG/24 HOURS TOPICAL PATCH TD SCH (10:38)
[2018-12-02] MEDS: HYDROCHLOROTHIAZIDE 25 MG TABLET (FP) PO SCH (10:38)
[2018-12-02] MEDS: ASPIRIN COATED 81 MG TABLET.EC PO SCH (10:38)
[2018-12-02] MEDS: PRENATAL VITAMINS W/ FOLIC ACID TABLET (FP) PO SCH (10:38)
[2018-12-02] MEDS: NICOTINE POLACRILEX 2 MG GUM BUC PRN ×2 (10:39→17:00)
--- NOTE | 2018-12-02 11:17 | PN ---
[facility] CIWA - CIWA Score Nausea/Vomitin-Mild Nausea/No Vomiting Muscle Tremors: 4-Moderate,w/Arms Extend Anxiety: 3 Agitation: 3 Paroxysmal Sweats: 2 Orientation: 0-Oriented Tacttile Disturbances: 0-None Auditory Disturbances: 1-Very Mild Visual Disturbances: 0-None Headache: 0-None Present CIWA-Ar Total Score: 14 S Progress Note (SOAP) Subjective: 63 years old male admitted on 12/01/18 for alcohol withdrawal sx management doing well with librium detox regimen ate breakfast resting on bed reports feeling tired and prefers to day in bed today Objective: 12/02/18 11:17 Vital Signs Temperature 9605 F H 12/02/18 09:09 Pulse Rate 65 12/02/18 09:09 Respiratory Rate 18 12/02/18 09:09 Blood Pressure 144/91 12/02/18 09:09 O2 Sat by Pulse Oximetry (%) Laboratory Last Values WBC 2.5 K/mm3 (4.0-10.0) L 12/02/18 08:00 RBC 3.84 M/mm3 (4.00-5.60) L 12/02/18 08:00 Hgb 13.3 GM/dL (11.7-16.9) 12/02/18 08:00 Hct 38.5 % (35.4-49) 12/02/18 08:00 MCV 100.2 fl (80-96) H 12/02/18 08:00 MCH 34.6 pg (25.7-33.7) H 12/02/18 08:00 MCHC 34.6 g/dl (32.0-35.9) 12/02/18 08:00 RDW 14.8 % (11.9-15.9) 12/02/18 08:00 Plt Count 180 K/MM3 (134-434) 12/02/18 08:00 MPV 9.4 fl (7.5-11.1) 12/02/18 08:00 Sodium 143 mmol/L (136-145) 12/02/18 08:00 Potassium 3.4 mmol/L (3.5-5.1) L 12/02/18 08:00 Chloride 104 mmol/L (98-107) 12/02/18 08:00 Carbon Dioxide 33 mmol/L (21-32) H 12/02/18 08:00 Anion Gap 6 MMOL/L (8-16) L 12/02/18 08:00 BUN 10.7 mg/dL (7-18) 12/02/18 08:00 Creatinine 1.3 mg/dL (0.55-1.3) 12/02/18 08:00 Est GFR (CKD-EPI)AfAm 68.25 12/02/18 08:00 Est GFR (CKD-EPI)NonAf 58.89 12/02/18 08:00 POC Glucometer 142 UNITS (80-120) 12/02/18 05:56 Random Glucose 131 mg/dL (74-106) H 12/02/18 08:00 Calcium 9.0 mg/dL (8.5-10.1) 12/02/18 08:00 Total Bilirubin 0.6 mg/dL (0.2-1) 12/02/18 08:00 AST 9 U/L (15-37) L 12/02/18 08:00 ALT 17 U/L (13-61) 12/02/18 08:00 Alkaline Phosphatase 56 U/L (45-117) 12/02/18 08:00 Total Protein 6.5 g/dl (6.4-8.2) 12/02/18 08:00 Albumin 3.0 g/dl (3.4-5.0) L 12/02/18 08:00 12/02/18 11:18 lab noted chronic low wbc low K+ begin potassium supplement Assessment: 12/02/18 11:21 alcohol withdrawal sx Plan: continue librium detox regimen
[2018-12-02] MEDS ORDERED: POTASSIUM CHLORIDE TABS 10 MEQ TABLET.ER (FP) PO SCH (11:30)
[2018-12-02] MEDS: ATENOLOL 25 MG TABLET (FP) PO SCH (12:28)
--- NOTE | 2018-12-02 13:59 | CONSULT ---
[facility] Psychiatric Consult - Data Date of interview: 12/02/18 Admission source: [facility] Identifying data: One of several admissions to [facility] for this 63 y/o AA male self-referred for detoxification. RADHA issues : alcohol, cannabis, cocaine. Patient is single without children, domiciled, unemployed and supported on Public Assistance. Substance Abuse History: Discussed with patient. Details in current [facility] report as follows : Smoking history: Current every day smoker. Have you smoked in the past 12 months: Yes. Aproximately how many cigarettes per day: 10. Cigars Per Day: 0. Hx Chewing Tobacco Use: No. Initiated information on smoking cessation : Yes. 'Breaking Loose' booklet given: 12/01/18. - Substance & Tx. History. Hx Alcohol Use: Yes. Hx Substance Use: Yes. Substance Use Type: Cocaine, Marijuana. Hx Substance Use Treatment: Yes ([facility]). - Substances abused. Alcohol. Substance route: Oral. Frequency: 3-6 times per week. Amount used: 1pint of cognac. Age of first use: 15. Date of last use: 11/30/18. Cocaine. Substance route: Inhalation. Frequency: 1-2 times per week. Amount used: $50. Age of first use: 20. Date of last use: 11/30/18 Medical History: Medical profile is remarkable for orthosurgery for fracture of right fibula (2004), hypertension, spinal stenosis, lower back pain, history of (+) PPD and treatment with INH (2004), hypercholesterolemia and arthritis at L3- L4 level. Noted history of angina and right hip replacement for avascular necrosis (2004). Multiple allergies : haloperidol, enalapril and levofloxacin. Psychiatric History: History of multiple psychiatric hospitalizations. Onset of psychiatric disturbances in 1985 (started OPD care but got hospitalized for first time in 2003). Patient is diagnosed with Schizoaffective Disorder. Reported past psychiatric admissions to [facility], [facility], [facility], [facility] and [facility]. Mr Noonan is not affiliated with any psychiatric OPD care providers at this time. He has stopped going to the [facility] OPD clinic in the [place]. Patient states that he got prescribed risperdal 6 mg/hs + citalopram 20 mg/day + wellbutrin XL 300 mg/day at his most recent admission to the [facility] in [facility] (reportedly taken prior to this [facility] visit). Patient admits to a remote history of one suicide attempt (jumping into traffic). Physical/Sexual Abuse/Trauma History: Patient denies history of sexual or physical abuse. 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 Served in [employer], [employer] and [employer] in the .No report of flashbacks or nightmares. Additional Comment: Urine drug screen results: THC-Marijuana, JESUS ALBERTO-Cocaine. Noted. Mental Status Exam - Mental Status Exam Alert and Oriented to: Time, Place, Person Cognitive Function: Good Mood: Withdrawn Affect: Mood Congruent, Constricted Patient Behavior: Fatigued, Appropriate, Cooperative Speech Pattern: Clear, Appropriate Voice Loudness: Normal Thought Process: Goal Oriented Thought Disorder: Not Present Hallucinations: Denies Suicidal Ideation: Denies Homicidal Ideation: Denies Insight/Judgement: Poor Sleep: Fair Appetite: Fair Muscle strength/Tone: Normal Gait/Station: Normal Psychiatric Findings - Problem List ([place] 1, 2,3) (1) Alcohol dependence with uncomplicated withdrawal Current Visit: Yes Status: Acute (2) Cocaine dependence, uncomplicated Current Visit: Yes Status: Chronic (3) Cannabis dependence, uncomplicated Current Visit: Yes Status: Chronic (4) Nicotine dependence Current Visit: Yes Status: Chronic Qualifiers: Nicotine product type: cigarettes Substance use status: uncomplicated Qualified Code(s): F17.210 - Nicotine dependence, cigarettes, uncomplicated (5) Substance induced mood disorder Current Visit: Yes Status: Chronic (6) Schizoaffective disorder Current Visit: Yes Status: Chronic Qualifiers: Schizoaffective disorder type: depressive Qualified Code(s): F25.1 - Schizoaffective disorder, depressive type Comment: By history. On medications. (7) Insomnia Current Visit: Yes Status: Chronic Qualifiers: Insomnia type: unspecified Qualified Code(s): G47.00 - Insomnia, unspecified - Initial Treatment Plan Initial Treatment Plan: Records reviewed ([facility]). Psychoeducation. Sleep hygiene. Support. AA meetings. Medications reconciled. Contact made with [facility] at [phone] : last refill for risperdal 1 mg/hs is dated 08/2018. No confirmation of 6 mg/day. Will resume risperdal as follows : risperdal 3 mg po hs + 1 mg po daily + wellbutrin XL 300 mg po daily + citalopram 20 mg po daily. Side effects/benefits of EACH of these formulations are discussed with the patient (which include risk of akathisia, galactorrhea, gynecomastia, sexual impotence, tardive dyskinesia, suicidal ideation, seizures, neuroleptic malignant syndrome). Mr Noonan expresses agreement with this plan of care. Gave verbal consent to MD. Murry.
[2018-12-02] MEDS: POTASSIUM CHLORIDE TABS 20 MEQ TABLET.ER (FP) PO SCH (14:56)
[2018-12-02] MEDS: risperiDONE 3 MG TABLET PO SCH (22:16)
[2018-12-02] MEDS: ATORVASTATIN CA 20 MG TABLET (FP) PO SCH (22:16)
[2018-12-02] MEDS: THIAMINE HCL 100 MG TABLET (FP) PO SCH (22:16)
[2018-12-03] MEDS: chlordiazePOXIDE 5 MG CAPSULE PO SCH ×3 (05:51→22:22)
[2018-12-03] MEDS: metFORMIN HCL 500 MG TABLET (FP) PO SCH ×2 (06:31→17:27)
[2018-12-03] MEDS: CITALOPRAM HYDROBROMIDE 20 MG TABLET (FP) PO SCH (10:20)
[2018-12-03] MEDS: risperiDONE 1 MG TABLET (FP) PO SCH (10:21)
[2018-12-03] MEDS: PRENATAL VITAMINS W/ FOLIC ACID TABLET (FP) PO SCH (10:21)
[2018-12-03] MEDS: ASPIRIN COATED 81 MG TABLET.EC PO SCH (10:21)
[2018-12-03] MEDS: NICOTINE 14 MG/24 HOURS TOPICAL PATCH TD SCH (10:21)
[2018-12-03] MEDS: POTASSIUM CHLORIDE TABS 20 MEQ TABLET.ER (FP) PO SCH (10:21)
[2018-12-03] MEDS: HYDROCHLOROTHIAZIDE 25 MG TABLET (FP) PO SCH (10:28)
[2018-12-03] MEDS: ATENOLOL 25 MG TABLET (FP) PO SCH (10:28)
[2018-12-03] MEDS: amLODIPine BESYLATE 10 MG TABLET (FP) PO SCH (10:28)
--- NOTE | 2018-12-03 11:43 | PN ---
[facility] CIWA - CIWA Score Nausea/Vomitin-Mild Nausea/No Vomiting Muscle Tremors: 2 Anxiety: 3 Agitation: 2 Paroxysmal Sweats: 1-Minimal Palms Moist Orientation: 0-Oriented Tacttile Disturbances: 0-None Auditory Disturbances: 0-None Visual Disturbances: 0-None Headache: 1-Very Mild CIWA-Ar Total Score: 10 [facility] Progress Note (SOAP) Subjective: doing well with librium detox regimen ate breakfast resting on bed feeling tired limited conversation with staff Objective: 12/03/18 11:42 Vital Signs Temperature 98.1 F 12/03/18 09:17 Pulse Rate 68 12/03/18 09:17 Respiratory Rate 18 12/03/18 09:17 Blood Pressure 129/72 12/03/18 09:17 O2 Sat by Pulse Oximetry (%) Laboratory Last Values WBC 2.5 K/mm3 (4.0-10.0) L 12/02/18 08:00 RBC 3.84 M/mm3 (4.00-5.60) L 12/02/18 08:00 Hgb 13.3 GM/dL (11.7-16.9) 12/02/18 08:00 Hct 38.5 % (35.4-49) 12/02/18 08:00 MCV 100.2 fl (80-96) H 12/02/18 08:00 MCH 34.6 pg (25.7-33.7) H 12/02/18 08:00 MCHC 34.6 g/dl (32.0-35.9) 12/02/18 08:00 RDW 14.8 % (11.9-15.9) 12/02/18 08:00 Plt Count 180 K/MM3 (134-434) 12/02/18 08:00 MPV 9.4 fl (7.5-11.1) 12/02/18 08:00 Sodium 143 mmol/L (136-145) 12/02/18 08:00 Potassium 3.4 mmol/L (3.5-5.1) L 12/02/18 08:00 Chloride 104 mmol/L (98-107) 12/02/18 08:00 Carbon Dioxide 33 mmol/L (21-32) H 12/02/18 08:00 Anion Gap 6 MMOL/L (8-16) L 12/02/18 08:00 BUN 10.7 mg/dL (7-18) 12/02/18 08:00 Creatinine 1.3 mg/dL (0.55-1.3) 12/02/18 08:00 Est GFR (CKD-EPI)AfAm 68.25 12/02/18 08:00 Est GFR (CKD-EPI)NonAf 58.89 12/02/18 08:00 POC Glucometer 130 UNITS (80-120) 12/03/18 05:50 Random Glucose 131 mg/dL (74-106) H 12/02/18 08:00 Calcium 9.0 mg/dL (8.5-10.1) 12/02/18 08:00 Total Bilirubin 0.6 mg/dL (0.2-1) 12/02/18 08:00 AST 9 U/L (15-37) L 12/02/18 08:00 ALT 17 U/L (13-61) 12/02/18 08:00 Alkaline Phosphatase 56 U/L (45-117) 12/02/18 08:00 Total Protein 6.5 g/dl (6.4-8.2) 12/02/18 08:00 Albumin 3.0 g/dl (3.4-5.0) L 12/02/18 08:00 lab noted low K+ continue K+ supplement low wbc 12/03/18 11:43 chronic leukopenia 12/03/18 11:44 Assessment: 12/03/18 11:45 alcohol withdrawal sx Plan: continue librium detox regimen
[2018-12-03] MEDS: NICOTINE POLACRILEX 2 MG GUM BUC PRN (15:53)
[2018-12-03] MEDS: risperiDONE 3 MG TABLET PO SCH (22:22)
[2018-12-03] MEDS: ATORVASTATIN CA 20 MG TABLET (FP) PO SCH (22:22)
[2018-12-03] MEDS: THIAMINE HCL 100 MG TABLET (FP) PO SCH (22:22)
[2018-12-04] MEDS ORDERED: chlordiazePOXIDE HCL 10 MG CAPSULE PO PRN
[2018-12-04] MEDS: chlordiazePOXIDE HCL 10 MG CAPSULE PO SCH ×3 (05:31→22:15)
[2018-12-04] MEDS: metFORMIN HCL 500 MG TABLET (FP) PO SCH ×2 (06:08→16:51)
[2018-12-04] MEDS: amLODIPine BESYLATE 10 MG TABLET (FP) PO SCH (10:21)
[2018-12-04] MEDS: POTASSIUM CHLORIDE TABS 20 MEQ TABLET.ER (FP) PO SCH (10:21)
[2018-12-04] MEDS: HYDROCHLOROTHIAZIDE 25 MG TABLET (FP) PO SCH (10:21)
[2018-12-04] MEDS: CITALOPRAM HYDROBROMIDE 20 MG TABLET (FP) PO SCH (10:21)
[2018-12-04] MEDS: PRENATAL VITAMINS W/ FOLIC ACID TABLET (FP) PO SCH (10:21)
[2018-12-04] MEDS: ATENOLOL 25 MG TABLET (FP) PO SCH (10:21)
[2018-12-04] MEDS: risperiDONE 1 MG TABLET (FP) PO SCH (10:21)
[2018-12-04] MEDS: ASPIRIN COATED 81 MG TABLET.EC PO SCH (10:21)
[2018-12-04] MEDS: NICOTINE POLACRILEX 2 MG GUM BUC PRN ×4 (10:22→19:57)
[2018-12-04] MEDS: NICOTINE 14 MG/24 HOURS TOPICAL PATCH TD SCH (10:22)
--- NOTE | 2018-12-04 12:39 | PN ---
S CIWA - CIWA Score Nausea/Vomitin-No Nausea/No Vomiting Muscle Tremors: 2 Anxiety: 2 Agitation: 2 Paroxysmal Sweats: No Perspiration Orientation: 0-Oriented Tacttile Disturbances: 0-None Auditory Disturbances: 0-None Visual Disturbances: 0-None Headache: 0-None Present CIWA-Ar Total Score: 6 B[facility] Progress Note (SOAP) Subjective: doing well with librium detox regimen report taking fish oil once a day at home dosage is 1000mg against recommended dosage less tremor sleep better at night Objective: 12/04/18 12:38 Vital Signs Temperature 97.0 F L 12/04/18 09:13 Pulse Rate 80 12/04/18 09:13 Respiratory Rate 18 12/04/18 09:13 Blood Pressure 147/84 12/04/18 09:13 O2 Sat by Pulse Oximetry (%) Laboratory Last Values WBC 2.5 K/mm3 (4.0-10.0) L 12/02/18 08:00 RBC 3.84 M/mm3 (4.00-5.60) L 12/02/18 08:00 Hgb 13.3 GM/dL (11.7-16.9) 12/02/18 08:00 Hct 38.5 % (35.4-49) 12/02/18 08:00 MCV 100.2 fl (80-96) H 12/02/18 08:00 MCH 34.6 pg (25.7-33.7) H 12/02/18 08:00 MCHC 34.6 g/dl (32.0-35.9) 12/02/18 08:00 RDW 14.8 % (11.9-15.9) 12/02/18 08:00 Plt Count 180 K/MM3 (134-434) 12/02/18 08:00 MPV 9.4 fl (7.5-11.1) 12/02/18 08:00 Sodium 143 mmol/L (136-145) 12/02/18 08:00 Potassium 3.4 mmol/L (3.5-5.1) L 12/02/18 08:00 Chloride 104 mmol/L (98-107) 12/02/18 08:00 Carbon Dioxide 33 mmol/L (21-32) H 12/02/18 08:00 Anion Gap 6 MMOL/L (8-16) L 12/02/18 08:00 BUN 10.7 mg/dL (7-18) 12/02/18 08:00 Creatinine 1.3 mg/dL (0.55-1.3) 12/02/18 08:00 Est GFR (CKD-EPI)AfAm 68.25 12/02/18 08:00 Est GFR (CKD-EPI)NonAf 58.89 12/02/18 08:00 POC Glucometer 117 UNITS (80-120) 12/04/18 05:33 Random Glucose 131 mg/dL (74-106) H 12/02/18 08:00 Calcium 9.0 mg/dL (8.5-10.1) 12/02/18 08:00 Total Bilirubin 0.6 mg/dL (0.2-1) 12/02/18 08:00 AST 9 U/L (15-37) L 12/02/18 08:00 ALT 17 U/L (13-61) 12/02/18 08:00 Alkaline Phosphatase 56 U/L (45-117) 12/02/18 08:00 Total Protein 6.5 g/dl (6.4-8.2) 12/02/18 08:00 Albumin 3.0 g/dl (3.4-5.0) L 12/02/18 08:00 lab note Assessment: 12/04/18 12:39 alcohol withdrawal sx Plan: continue librium detox regimen report taking risperidal 6 mg at home request to be seen by psychiatrist psychiatrist referral
[2018-12-04] MEDS ORDERED: OMEGA-3 ACID ETHYL ESTERS (FATTY-ACIDS) 1 GM CAPSULE (FP) PO SCH (12:45)
[2018-12-04] MEDS: OMEGA-3 ACID ETHYL ESTERS (FATTY-ACIDS) 1 GM CAPSULE (FP) PO SCH (14:16)
[2018-12-04] MEDS: THIAMINE HCL 100 MG TABLET (FP) PO SCH (22:15)
[2018-12-04] MEDS: risperiDONE 3 MG TABLET PO SCH (22:16)
[2018-12-04] MEDS: ATORVASTATIN CA 20 MG TABLET (FP) PO SCH (22:16)
[2018-12-05] MEDS ORDERED: chlordiazePOXIDE HCL 10 MG CAPSULE PO ONE (05:00)
[2018-12-05] MEDS: NICOTINE POLACRILEX 2 MG GUM BUC PRN ×2 (05:36→09:54)
[2018-12-05] MEDS: metFORMIN HCL 500 MG TABLET (FP) PO SCH (06:07)
[2018-12-05 09:22] VITALS: BP 164/83; PULSE 68; TEMP 97.8
[2018-12-05] MEDS: PRENATAL VITAMINS W/ FOLIC ACID TABLET (FP) PO SCH (09:50)
[2018-12-05] MEDS: ASPIRIN COATED 81 MG TABLET.EC PO SCH (09:50)
[2018-12-05] MEDS: amLODIPine BESYLATE 10 MG TABLET (FP) PO SCH (09:50)
[2018-12-05] MEDS: HYDROCHLOROTHIAZIDE 25 MG TABLET (FP) PO SCH (09:50)
[2018-12-05] MEDS: ATENOLOL 25 MG TABLET (FP) PO SCH (09:51)
[2018-12-05] MEDS: risperiDONE 1 MG TABLET (FP) PO SCH (09:51)
[2018-12-05] MEDS: POTASSIUM CHLORIDE TABS 20 MEQ TABLET.ER (FP) PO SCH (09:53)
--- NOTE | 2018-12-05 11:05 | DS ---
[facility] Detox Discharge Summary Admission Date: 12/01/18 Discharge Date: 12/05/18 - History Present History: Alcohol Dependence Additional Comments: 63 years old male admitted on 12/03/18 for alcohol withdrawal sx management did well with librium detox regimen no complication through out the detox stay seen by psychiatrist treated [facility] marija herzogrocael patient is alert oriented x 3 cardiac S1S2 regular rhythm respiratory clear no wheezing bilaterally on auscultation abdomen soft no rebound tenderness ambulating with cane steady gait - Physical Exam Results Vital Signs: Vital Signs Temperature 97.8 F 12/05/18 09:22 Pulse Rate 68 12/05/18 09:22 Respiratory Rate 18 12/05/18 09:22 Blood Pressure 164/83 12/05/18 09:22 O2 Sat by Pulse Oximetry (%) Pertinent Admission Physical Exam Findings: alcohol withdrawal sx Laboratory Last Values WBC 2.5 K/mm3 (4.0-10.0) L 12/02/18 08:00 RBC 3.84 M/mm3 (4.00-5.60) L 12/02/18 08:00 Hgb 13.3 GM/dL (11.7-16.9) 12/02/18 08:00 Hct 38.5 % (35.4-49) 12/02/18 08:00 MCV 100.2 fl (80-96) H 12/02/18 08:00 MCH 34.6 pg (25.7-33.7) H 12/02/18 08:00 MCHC 34.6 g/dl (32.0-35.9) 12/02/18 08:00 RDW 14.8 % (11.9-15.9) 12/02/18 08:00 Plt Count 180 K/MM3 (134-434) 12/02/18 08:00 MPV 9.4 fl (7.5-11.1) 12/02/18 08:00 Sodium 143 mmol/L (136-145) 12/02/18 08:00 Potassium 3.4 mmol/L (3.5-5.1) L 12/02/18 08:00 Chloride 104 mmol/L (98-107) 12/02/18 08:00 Carbon Dioxide 33 mmol/L (21-32) H 12/02/18 08:00 Anion Gap 6 MMOL/L (8-16) L 12/02/18 08:00 BUN 10.7 mg/dL (7-18) 12/02/18 08:00 Creatinine 1.3 mg/dL (0.55-1.3) 12/02/18 08:00 Est GFR (CKD-EPI)AfAm 68.25 12/02/18 08:00 Est GFR (CKD-EPI)NonAf 58.89 12/02/18 08:00 POC Glucometer 114 UNITS (80-120) 12/05/18 05:37 Random Glucose 131 mg/dL (74-106) H 12/02/18 08:00 Calcium 9.0 mg/dL (8.5-10.1) 12/02/18 08:00 Total Bilirubin 0.6 mg/dL (0.2-1) 12/02/18 08:00 AST 9 U/L (15-37) L 12/02/18 08:00 ALT 17 U/L (13-61) 12/02/18 08:00 Alkaline Phosphatase 56 U/L (45-117) 12/02/18 08:00 Total Protein 6.5 g/dl (6.4-8.2) 12/02/18 08:00 Albumin 3.0 g/dl (3.4-5.0) L 12/02/18 08:00 lab noted low wbc low K+ - Treatment Hospital Course: Detox Protocol Followed, Detoxed Safely, Responded well, Discharged Condition Good, Rehab Referral Accepted Patient has Accepted [facility] Referral [facility] - Medication Discharge Medications: Ambulatory Orders Amlodipine Besylate [Norvasc -] 10 mg PO DAILY #14 tab 10/26/17 Aspirin Coated [Ecotrin -] 81 mg PO DAILY #14 tab 10/26/17 Atenolol [Tenormin -] 25 mg PO DAILY #14 tablet 10/26/17 Atorvastatin Ca [Lipitor] 20 mg PO HS #14 tablet 10/26/17 Hydrochlorothiazide 25 mg PO DAILY 14 Days tablet 10/26/17 [place]-3 Acid Ethyl Esters [Lovaza -] 1 gm PO DAILY #14 cap 10/26/17 metFORMIN HCL [Glucophage -] 500 mg PO BIDAC #30 tablet 10/26/17 Bupropion HCl [Wellbutrin Xl -] 300 mg PO DAILY #30 tab.sr.24h 10/29/17 Ibuprofen 400 mg PO TID PRN 09/02/18 Risperidone [Risperdal] 6 mg PO DAILY 09/02/18 - Diagnosis (1) Alcohol dependence with uncomplicated withdrawal Current Visit: Yes Status: Acute (2) DM2 (diabetes mellitus, type 2) Current Visit: Yes Status: Chronic Qualifiers: Diabetes mellitus last greaser insulin use: unspecified residential insulin use status Diabetes mellitus complication status: without complication Qualified Code(s): E11.9 - Type 2 diabetes mellitus without complications (3) Essential hypertension Current Visit: Yes Status: Chronic (4) Hypercholesteremia Current Visit: Yes Status: Chronic (5) Nicotine dependence Current Visit: Yes Status: Acute Qualifiers: Nicotine product type: cigarettes Substance use status: in withdrawal Qualified Code(s): F17.213 - Nicotine dependence, cigarettes, with withdrawal (6) PPD positive Current Visit: Yes Status: Resolved (7) Substance induced mood disorder Current Visit: Yes Status: Suspected (8) Use of cane as ambulatory aid Current Visit: Yes Status: Chronic - AMA Did Patient Leave Against Medical Advice: No CIWA Score - CIWA Score Nausea/Vomitin-No Nausea/No Vomiting Muscle Tremors: 1-None Visible, but [place] Anxiety: 1-Mildly Anxious Agitation: 1-Slight > Activity Paroxysmal Sweats: No Perspiration Orientation: 0-Oriented Tacttile Disturbances: 0-None Auditory Disturbances: 0-None Visual Disturbances: 0-None Headache: 0-None Present CIWA-Ar Total Score: 3
[2018-12-05] MEDS: OMEGA-3 ACID ETHYL ESTERS (FATTY-ACIDS) 1 GM CAPSULE (FP) PO SCH (11:35)
[2018-12-05] MEDS: NICOTINE 14 MG/24 HOURS TOPICAL PATCH TD SCH (11:35)
[2018-12-05] MEDS: CITALOPRAM HYDROBROMIDE 20 MG TABLET (FP) PO SCH (11:35)
== END 2018-12-05 12:58 | disposition other institution (70) | DRG 774 ==
LOC: YASAS 19:18 → Y3N 21:29
PROVIDERS: ADMIT Allergy & Immunology; ATTEND Allergy & Immunology
PROC: HZ2ZZZZ Detoxification Services for Substance Abuse Treatment (ICD-10-PCS; principal; 2018-12-01)
DX: F10.230 Alcohol dependence with withdrawal, uncomplicated (principal); F14.20 Cocaine dependence, uncomplicated; F12.20 Cannabis dependence, uncomplicated; F17.210 Nicotine dependence, cigarettes, uncomplicated; F25.9 Schizoaffective disorder, unspecified; F19.24 Other psychoactive substance dependence with psychoactive substance-induced mood disorder; F32.9 Major depressive disorder, single episode, unspecified; D64.9 Anemia, unspecified; E87.6 Hypokalemia; D72.819 Decreased white blood cell count, unspecified; G47.00 Insomnia, unspecified; I10 Essential (primary) hypertension; E78.00 Pure hypercholesterolemia, unspecified; E11.9 Type 2 diabetes mellitus without complications; Z79.4 Long term (current) use of insulin; M54.5 Low back pain; G89.29 Other chronic pain; M48.00 Spinal stenosis, site unspecified; M12.9 Arthropathy, unspecified; R76.11 Nonspecific reaction to tuberculin skin test without active tuberculosis; Z99.89 Dependence on other enabling machines and devices; Z88.1 Allergy status to other antibiotic agents; Z88.8 Allergy status to other drugs, medicaments and biological substances
CPT/HCPCS: 36415; 80053; 82962; 85027; J2794

== ENCOUNTER 2018-12-05 12:11 | Inpatient (IN) | payer OTHER ==
--- NOTE | 2018-12-05 11:14 | HP ---
[facility] Rehab Assess/Revision - Admission History Ad[facility] to [facility]hab [facility] Date of Admission to Rehab: 12/05/18 - Findings Detox History & Physical reviewed: Yes Concur with findings: Yes Comments/Additional Findings: transferred from detox to rehab admission as per protocol Inpatient Rehab Admission - Rehab Decision to Admit Inpatient rehab admission?: Yes - Initial Determination Are CD services needed?: Yes Free of communicable disease: Yes Not in need of hospitalization: Yes - Rehab Admission Criteria Previous failed treatment: Yes Poor recovery environment: Yes Comorbidities: Yes Lacks judgement: Yes Patient is meeting Inpatient Rehab admission criteria:: Yes
[~2018-12-05 12:11] MED LIST: ACETAMINOPHEN 325 MG TABLET (FP) PO PRN; LOPERAMIDE HCL 2 MG CAPSULE PO PRN; MAGNESIUM CITRATE 300 ML BOTTLE PO PRN; MAGNESIUM HYDROX 2400MG/30ML ORAL SUSPENSION 30 ML CUP PO PRN; MENTHOL/PHENOL 1 EACH UD MM PRN; P-EPHED 60MG/TRIPROLIDI 2.5MG TABLET PO PRN; guaiFENesin 200 MG/10 ML 10 ML UNIT-DOSE CUPS PO PRN
[2018-12-05 15:47] LABS: HEMATOCRIT 39.3 % (35.4-49); HEMOGLOBIN 13.1 GM/dL (11.7-16.9); MCH 34.3 pg (25.7-33.7); MCHC 33.3 g/dl (32.0-35.9); MEAN CELL VOLUME 102.9 fl (80-96); MEAN PLT VOLUME 9.7 fl (7.5-11.1); PLATELET COUNT 172 K/MM3 (134-434); RBC 3.82 M/mm3 (4.00-5.60); RDW 15.3 % (11.9-15.9); WHITE BLOOD COUNT 2.5 K/mm3 (4.0-10.0)
[2018-12-05] MEDS: NICOTINE POLACRILEX 2 MG GUM BUC PRN ×3 (15:52→21:11)
[2018-12-05] MEDS: metFORMIN HCL 500 MG TABLET (FP) PO SCH (16:57)
[2018-12-05] MEDS: ATORVASTATIN CA 20 MG TABLET (FP) PO SCH (21:10)
[2018-12-05] MEDS: THIAMINE HCL 100 MG TABLET (FP) PO SCH (21:11)
[2018-12-05] MEDS ORDERED: MELATONIN 5 MG TABLETS PO PRN (22:00)
[2018-12-05] MEDS ORDERED: risperiDONE 3 MG TABLET PO SCH (22:00)
[2018-12-06] MEDS: NICOTINE POLACRILEX 2 MG GUM BUC PRN ×3 (05:54→12:44)
[2018-12-06] MEDS: metFORMIN HCL 500 MG TABLET (FP) PO SCH ×2 (07:17→17:30)
[2018-12-06] MEDS ORDERED: risperiDONE 1 MG TABLET (FP) PO SCH (10:00)
[2018-12-06] MEDS: amLODIPine BESYLATE 10 MG TABLET (FP) PO SCH (10:02)
[2018-12-06] MEDS: OMEGA-3 ACID ETHYL ESTERS (FATTY-ACIDS) 1 GM CAPSULE (FP) PO SCH (10:02)
[2018-12-06] MEDS: ATENOLOL 25 MG TABLET (FP) PO SCH (10:02)
[2018-12-06] MEDS: PRENATAL VITAMINS W/ FOLIC ACID TABLET (FP) PO SCH (10:02)
[2018-12-06] MEDS: HYDROCHLOROTHIAZIDE 25 MG TABLET (FP) PO SCH (10:02)
[2018-12-06] MEDS: ASPIRIN 81 MG CHEWABLE TABLETS PO SCH (10:02)
[2018-12-06] MEDS: NICOTINE 14 MG/24 HOURS TOPICAL PATCH TD SCH (10:03)
--- NOTE | 2018-12-06 10:28 | CONSULT ---
[facility] Psychiatric Consult - Data Date of interview: 12/06/18 Admission source: 3N Identifying data: Mr Noonan is a 63 years old single Black male, unemployed receiving pubilc assistance, domiciled seeking detox treatment for alcohol and cocaine Substance Abuse History: Reports history of alcohol and cocaine use. Refer to addiction counselor's summary for furthr information Medical History: Significant for hypertension, dyslipidemia, type 2 diabetes mellitus, angina pectoris, spinal stenosis, lower back pain, arthritis L3-L4, history of prophylactic treatment for TB with INH (2004), right hip replacement for avascular necrosis (2003) and fracture right fibula in 1996. Smokes 10 cigarettes daily Psychiatric History: Patient is well known to check writer from previous admissions to this facility. He was recently seen by Dr Reagan on 12/02/18 while in detox. Historical narrative remains consistent. He reports onset of psychiatric disturbances in 2003 when he was admitted to [facility] and diagnosed with Schizoaffective Disorder and PTSD. Reports multiple psychiatric admissions to various institutions including to [facility], [facility], [facility], [facility] and [facility] in [facility] and most recently from the [facility] from June- July 2017. Patient reports that he just completed(August 23) a 4 months work program at [facility] in [place]. Reports while there he was seeing Dr cOhoa and he was prescribed Wellbutrin XL 300 mg/day, Celexa 20 mg/day and Risperdal 6 mg/hs. When seen by Dr Reagan during recent admission in detox, he was prescribed Wellbutrin XL 300 mg/day, Celexa 20 mg/day am risperdal 1 mg/day & 3 mg/hs. Reportedly he had several suicide attempts, most recently in January 2017,via deliberate self exposure to oncoming traffic. At present, denies experienicing psychotic, manic symptoms, S/H ideations. However, reports feeling feeling depressed, anxious and sleeping poorly Physical/Sexual Abuse/Trauma History: Patient denies history of emotional, sexual or physical abuse as well as DV relationship. 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 Served in [employer], [employer] and [place] in the . No report of flashbacks or nightmares. Additional Comment: Reports history of multiple previous arrests including 3 felony convictions. Reports being off parole for 8 years Mental Status Exam - Mental Status Exam Alert and Oriented to: Time, Place, Person Cognitive Function: Fair Patient Appearance: Well Groomed Mood: Depressed (mildly), Anxious (mildly) Patient Behavior: Cooperative Speech Pattern: Clear Voice Loudness: Normal Thought Process: Intact Thought Disorder: Not Present Hallucinations: Denies Suicidal Ideation: Denies Homicidal Ideation: Denies Insight/Judgement: Fair Sleep: Poorly Appetite: Fair Muscle strength/Tone: Normal Gait/Station: Other (uses a cane as ambulatory aid) Psychiatric Findings - Problem List ([place] 1, 2,3) (1) Schizoaffective disorder Current Visit: No Status: Chronic Qualifiers: Schizoaffective disorder type: depressive Qualified Code(s): F25.1 - Schizoaffective disorder, depressive type Comment: By history. On medications. (2) Substance induced mood disorder Current Visit: No Status: Acute (3) Substance-induced sleep disorder Current Visit: Yes Status: Acute (4) Alcohol dependence Current Visit: Yes Status: Acute (5) Cocaine dependence Current Visit: No Status: Acute Qualifiers: Substance use status: uncomplicated Qualified Code(s): F14.20 - Cocaine dependence, uncomplicated (6) Nicotine dependence Current Visit: Yes Status: Chronic (7) Essential hypertension Current Visit: No Status: Chronic (8) Hypercholesteremia Current Visit: No Status: Chronic (9) DM2 (diabetes mellitus, type 2) Current Visit: No Status: Chronic Qualifiers: Diabetes mellitus assisted insulin use: unspecified intermission coordinator insulin use status Diabetes mellitus complication status: without complication Qualified Code(s): E11.9 - Type 2 diabetes mellitus without complications (10) Arthritis Current Visit: No Status: Chronic (11) Back pain Current Visit: No Status: Chronic Qualifiers: Back pain location: low back pain Chronicity: chronic Back pain laterality: midline Sciatica presence: without sciatica Qualified Code(s): M54.5 - Low back pain; G89.29 - Other chronic pain (12) Spinal stenosis, lumbosacral region Current Visit: No Status: Resolved - Initial Treatment Plan Initial Treatment Plan: 1) Continue Wellbutrin XL 300 mg po daily and Celexa 20 mg po daily. 2) Start Risperdal 6 mg po HS. 3) Continue inpatient rehabilitation
[2018-12-06] MEDS: CITALOPRAM HYDROBROMIDE 20 MG TABLET (FP) PO SCH (12:09)
[2018-12-06] MEDS: LIDOCAINE 5% TOPICAL PATCH TP SCH (14:12)
[2018-12-06] MEDS: NICOTINE POLACRILEX 4 MG GUM BUC PRN ×2 (17:31→21:45)
[2018-12-06] MEDS: LIDOCAINE PATCH REMOVAL MC SCH (21:43)
[2018-12-06] MEDS: ATORVASTATIN CA 20 MG TABLET (FP) PO SCH (21:44)
[2018-12-06] MEDS: THIAMINE HCL 100 MG TABLET (FP) PO SCH (21:44)
[2018-12-06] MEDS ORDERED: RISPERIDONE PO ONE (22:00)
[2018-12-06] MEDS ORDERED: risperiDONE 1 MG TABLET (FP) PO ONE (22:00)
[2018-12-07] MEDS: NICOTINE POLACRILEX 4 MG GUM BUC PRN ×4 (05:54→18:42)
[2018-12-07] MEDS: metFORMIN HCL 500 MG TABLET (FP) PO SCH ×2 (06:25→16:32)
[2018-12-07] MEDS: ASPIRIN 81 MG CHEWABLE TABLETS PO SCH (09:30)
[2018-12-07] MEDS: ATENOLOL 25 MG TABLET (FP) PO SCH (09:30)
[2018-12-07] MEDS: LIDOCAINE 5% TOPICAL PATCH TP SCH (09:30)
[2018-12-07] MEDS: CITALOPRAM HYDROBROMIDE 20 MG TABLET (FP) PO SCH (09:30)
[2018-12-07] MEDS: OMEGA-3 ACID ETHYL ESTERS (FATTY-ACIDS) 1 GM CAPSULE (FP) PO SCH (09:30)
[2018-12-07] MEDS: PRENATAL VITAMINS W/ FOLIC ACID TABLET (FP) PO SCH (09:30)
[2018-12-07] MEDS: HYDROCHLOROTHIAZIDE 25 MG TABLET (FP) PO SCH (09:30)
[2018-12-07] MEDS: amLODIPine BESYLATE 10 MG TABLET (FP) PO SCH (09:30)
[2018-12-07] MEDS: NICOTINE 14 MG/24 HOURS TOPICAL PATCH TD SCH (09:32)
[2018-12-07] MEDS: risperiDONE 3 MG TABLET PO SCH (21:18)
[2018-12-07] MEDS: ATORVASTATIN CA 20 MG TABLET (FP) PO SCH (21:18)
[2018-12-07] MEDS: THIAMINE HCL 100 MG TABLET (FP) PO SCH (21:18)
[2018-12-07] MEDS: LIDOCAINE PATCH REMOVAL MC SCH (21:18)
[2018-12-08] MEDS: metFORMIN HCL 500 MG TABLET (FP) PO SCH ×2 (06:18→16:37)
[2018-12-08] MEDS: ASPIRIN 81 MG CHEWABLE TABLETS PO SCH (10:00)
[2018-12-08] MEDS: HYDROCHLOROTHIAZIDE 25 MG TABLET (FP) PO SCH (10:00)
[2018-12-08] MEDS: CITALOPRAM HYDROBROMIDE 20 MG TABLET (FP) PO SCH (10:00)
[2018-12-08] MEDS: LIDOCAINE 5% TOPICAL PATCH TP SCH (10:01)
[2018-12-08] MEDS: amLODIPine BESYLATE 10 MG TABLET (FP) PO SCH (10:01)
[2018-12-08] MEDS: ATENOLOL 25 MG TABLET (FP) PO SCH (10:01)
[2018-12-08] MEDS: PRENATAL VITAMINS W/ FOLIC ACID TABLET (FP) PO SCH (10:01)
[2018-12-08] MEDS: NICOTINE 14 MG/24 HOURS TOPICAL PATCH TD SCH (10:02)
[2018-12-08] MEDS: NICOTINE POLACRILEX 4 MG GUM BUC PRN ×2 (10:02→12:48)
[2018-12-08] MEDS: OMEGA-3 ACID ETHYL ESTERS (FATTY-ACIDS) 1 GM CAPSULE (FP) PO SCH (10:02)
[2018-12-08] MEDS: risperiDONE 3 MG TABLET PO SCH (21:45)
[2018-12-08] MEDS: LIDOCAINE PATCH REMOVAL MC SCH (21:45)
[2018-12-08] MEDS: ATORVASTATIN CA 20 MG TABLET (FP) PO SCH (21:45)
[2018-12-08] MEDS: THIAMINE HCL 100 MG TABLET (FP) PO SCH (21:45)
[2018-12-09] MEDS: NICOTINE POLACRILEX 4 MG GUM BUC PRN ×4 (06:44→17:49)
[2018-12-09] MEDS: metFORMIN HCL 500 MG TABLET (FP) PO SCH ×2 (06:44→16:41)
[2018-12-09] MEDS: ASPIRIN 81 MG CHEWABLE TABLETS PO SCH (09:48)
[2018-12-09] MEDS: LIDOCAINE 5% TOPICAL PATCH TP SCH (09:48)
[2018-12-09] MEDS: CITALOPRAM HYDROBROMIDE 20 MG TABLET (FP) PO SCH (09:48)
[2018-12-09] MEDS: amLODIPine BESYLATE 10 MG TABLET (FP) PO SCH (09:48)
[2018-12-09] MEDS: OMEGA-3 ACID ETHYL ESTERS (FATTY-ACIDS) 1 GM CAPSULE (FP) PO SCH (09:48)
[2018-12-09] MEDS: ATENOLOL 25 MG TABLET (FP) PO SCH (09:48)
[2018-12-09] MEDS: PRENATAL VITAMINS W/ FOLIC ACID TABLET (FP) PO SCH (09:48)
[2018-12-09] MEDS: HYDROCHLOROTHIAZIDE 25 MG TABLET (FP) PO SCH (09:48)
[2018-12-09] MEDS: NICOTINE 14 MG/24 HOURS TOPICAL PATCH TD SCH (09:49)
[2018-12-09] MEDS: IBUPROFEN 400 MG TABLET (FP) PO PRN (11:37)
[2018-12-09] MEDS: LIDOCAINE PATCH REMOVAL MC SCH (21:07)
[2018-12-09] MEDS: THIAMINE HCL 100 MG TABLET (FP) PO SCH (21:07)
[2018-12-09] MEDS: ATORVASTATIN CA 20 MG TABLET (FP) PO SCH (21:07)
[2018-12-09] MEDS: risperiDONE 3 MG TABLET PO SCH (21:09)
[2018-12-10] MEDS: metFORMIN HCL 500 MG TABLET (FP) PO SCH ×2 (06:13→16:43)
[2018-12-10] MEDS: NICOTINE POLACRILEX 4 MG GUM BUC PRN ×4 (06:13→21:04)
[2018-12-10] MEDS: ASPIRIN 81 MG CHEWABLE TABLETS PO SCH (09:40)
[2018-12-10] MEDS: LIDOCAINE 5% TOPICAL PATCH TP SCH (09:40)
[2018-12-10] MEDS: HYDROCHLOROTHIAZIDE 25 MG TABLET (FP) PO SCH (09:40)
[2018-12-10] MEDS: ATENOLOL 25 MG TABLET (FP) PO SCH (09:40)
[2018-12-10] MEDS: amLODIPine BESYLATE 10 MG TABLET (FP) PO SCH (09:40)
[2018-12-10] MEDS: CITALOPRAM HYDROBROMIDE 20 MG TABLET (FP) PO SCH (09:40)
[2018-12-10] MEDS: PRENATAL VITAMINS W/ FOLIC ACID TABLET (FP) PO SCH (09:40)
[2018-12-10] MEDS: OMEGA-3 ACID ETHYL ESTERS (FATTY-ACIDS) 1 GM CAPSULE (FP) PO SCH (09:41)
[2018-12-10] MEDS: NICOTINE 14 MG/24 HOURS TOPICAL PATCH TD SCH (09:41)
[2018-12-10] MEDS: THIAMINE HCL 100 MG TABLET (FP) PO SCH (21:03)
[2018-12-10] MEDS: risperiDONE 3 MG TABLET PO SCH (21:03)
[2018-12-10] MEDS: ATORVASTATIN CA 20 MG TABLET (FP) PO SCH (21:03)
[2018-12-10] MEDS: LIDOCAINE PATCH REMOVAL MC SCH (21:04)
[2018-12-11] MEDS: metFORMIN HCL 500 MG TABLET (FP) PO SCH ×2 (06:29→17:06)
[2018-12-11] MEDS: NICOTINE POLACRILEX 4 MG GUM BUC PRN ×5 (06:30→21:00)
[2018-12-11] MEDS: ASPIRIN 81 MG CHEWABLE TABLETS PO SCH (10:06)
[2018-12-11] MEDS: PRENATAL VITAMINS W/ FOLIC ACID TABLET (FP) PO SCH (10:06)
[2018-12-11] MEDS: HYDROCHLOROTHIAZIDE 25 MG TABLET (FP) PO SCH (10:06)
[2018-12-11] MEDS: amLODIPine BESYLATE 10 MG TABLET (FP) PO SCH (10:06)
[2018-12-11] MEDS: CITALOPRAM HYDROBROMIDE 20 MG TABLET (FP) PO SCH (10:06)
[2018-12-11] MEDS: ATENOLOL 25 MG TABLET (FP) PO SCH (10:06)
[2018-12-11] MEDS: LIDOCAINE 5% TOPICAL PATCH TP SCH (10:08)
[2018-12-11] MEDS: OMEGA-3 ACID ETHYL ESTERS (FATTY-ACIDS) 1 GM CAPSULE (FP) PO SCH (10:08)
[2018-12-11] MEDS: NICOTINE 14 MG/24 HOURS TOPICAL PATCH TD SCH (10:08)
[2018-12-11] MEDS: IBUPROFEN 400 MG TABLET (FP) PO PRN (10:09)
--- NOTE | 2018-12-11 13:25 | PN ---
S Progress Note Note: Pt c/o Chronic Back pain and hx of spinal stenosis and disc herniation. Requesting pain relief and to increase motrin. Pt also reports he is on Naprosyn at home as well is has taken medicine for reflux in the past. Pt ambulates with cane and in a very slow pace due to pain. Vital Signs - 24 hr 12/11/18 12/11/18 12/11/18 00:30 03:30 07:09 Temperature 97.9 F Pulse Rate 69 Respiratory 18 18 18 Rate Blood Pressure 150/81 12/11/18 10:00 Temperature Pulse Rate 110 H Respiratory Rate Blood Pressure 121/62 Laboratory Tests 12/05/18 12/05/18 12/06/18 11:40 16:57 05:51 WBC 2.5 L RBC 3.82 L Hgb 13.1 Hct 39.3 MCV 102.9 H MCH 34.3 H MCHC 33.3 RDW 15.3 Plt Count 172 MPV 9.7 Potassium POC Glucometer 114 137 12/06/18 12/06/18 12/07/18 09:00 16:37 05:52 WBC RBC Hgb Hct MCV MCH MCHC RDW Plt Count MPV Potassium 4.0 POC Glucometer 95 117 12/07/18 12/08/18 12/08/18 16:32 06:17 16:40 WBC RBC Hgb Hct MCV MCH MCHC RDW Plt Count MPV Potassium POC Glucometer 130 126 100 12/09/18 12/09/18 12/10/18 06:43 16:40 06:11 WBC RBC Hgb Hct MCV MCH MCHC RDW Plt Count MPV Potassium POC Glucometer 103 106 134 12/10/18 12/11/18 16:42 06:28 WBC RBC Hgb Hct MCV MCH MCHC RDW Plt Count MPV Potassium POC Glucometer 105 108 Hip: Limited ROM A/P Hx chronic LBP D/w pt Naprosyn 500 mg po prn Add protonix 40 mg po bid Increase po fluids as tolerated.
[2018-12-11] MEDS: NAPROXEN 500 MG TABLET (FP) PO PRN (13:38)
[2018-12-11] MEDS: PANTOPRAZOLE 40 MG TABLET (FP) PO SCH (13:38)
[2018-12-11] MEDS: THIAMINE HCL 100 MG TABLET (FP) PO SCH (20:59)
[2018-12-11] MEDS: ATORVASTATIN CA 20 MG TABLET (FP) PO SCH (20:59)
[2018-12-11] MEDS: risperiDONE 3 MG TABLET PO SCH (20:59)
[2018-12-11] MEDS: LIDOCAINE PATCH REMOVAL MC SCH (20:59)
[2018-12-11] MEDS: METHYL SALICYLATE/MENTHOL OINT 30 GM TUBE TP SCH (20:59)
[2018-12-12] MEDS: metFORMIN HCL 500 MG TABLET (FP) PO SCH ×2 (05:59→16:39)
[2018-12-12] MEDS: NICOTINE POLACRILEX 4 MG GUM BUC PRN ×4 (06:00→15:51)
[2018-12-12] MEDS: ASPIRIN 81 MG CHEWABLE TABLETS PO SCH (09:57)
[2018-12-12] MEDS: amLODIPine BESYLATE 10 MG TABLET (FP) PO SCH (09:57)
[2018-12-12] MEDS: OMEGA-3 ACID ETHYL ESTERS (FATTY-ACIDS) 1 GM CAPSULE (FP) PO SCH (09:58)
[2018-12-12] MEDS: CITALOPRAM HYDROBROMIDE 20 MG TABLET (FP) PO SCH (09:58)
[2018-12-12] MEDS: PRENATAL VITAMINS W/ FOLIC ACID TABLET (FP) PO SCH (09:58)
[2018-12-12] MEDS: LIDOCAINE 5% TOPICAL PATCH TP SCH (09:58)
[2018-12-12] MEDS: ATENOLOL 25 MG TABLET (FP) PO SCH (09:58)
[2018-12-12] MEDS: HYDROCHLOROTHIAZIDE 25 MG TABLET (FP) PO SCH (09:58)
[2018-12-12] MEDS: NICOTINE 14 MG/24 HOURS TOPICAL PATCH TD SCH (09:59)
[2018-12-12] MEDS: PANTOPRAZOLE 40 MG TABLET (FP) PO SCH (10:05)
[2018-12-12] MEDS: ATORVASTATIN CA 20 MG TABLET (FP) PO SCH (21:09)
[2018-12-12] MEDS: THIAMINE HCL 100 MG TABLET (FP) PO SCH (21:09)
[2018-12-12] MEDS: risperiDONE 3 MG TABLET PO SCH (21:09)
[2018-12-12] MEDS: METHYL SALICYLATE/MENTHOL OINT 30 GM TUBE TP SCH (21:10)
[2018-12-12] MEDS: LIDOCAINE PATCH REMOVAL MC SCH (21:10)
[2018-12-13] MEDS: NICOTINE POLACRILEX 4 MG GUM BUC PRN ×3 (06:00→21:05)
[2018-12-13] MEDS: metFORMIN HCL 500 MG TABLET (FP) PO SCH ×2 (06:00→16:44)
[2018-12-13] MEDS: PRENATAL VITAMINS W/ FOLIC ACID TABLET (FP) PO SCH (09:58)
[2018-12-13] MEDS: OMEGA-3 ACID ETHYL ESTERS (FATTY-ACIDS) 1 GM CAPSULE (FP) PO SCH (09:58)
[2018-12-13] MEDS: CITALOPRAM HYDROBROMIDE 20 MG TABLET (FP) PO SCH (09:59)
[2018-12-13] MEDS: PANTOPRAZOLE 40 MG TABLET (FP) PO SCH (09:59)
[2018-12-13] MEDS: HYDROCHLOROTHIAZIDE 25 MG TABLET (FP) PO SCH (09:59)
[2018-12-13] MEDS: NICOTINE 14 MG/24 HOURS TOPICAL PATCH TD SCH (09:59)
[2018-12-13] MEDS: LIDOCAINE 5% TOPICAL PATCH TP SCH (09:59)
[2018-12-13] MEDS: amLODIPine BESYLATE 10 MG TABLET (FP) PO SCH (09:59)
[2018-12-13] MEDS: ASPIRIN 81 MG CHEWABLE TABLETS PO SCH (09:59)
[2018-12-13] MEDS: ATENOLOL 25 MG TABLET (FP) PO SCH (09:59)
[2018-12-13] MEDS: MAG HYDROX/AL HYDROX/SIMETH 30 ML UNIT-DOSE CUP PO PRN ×2 (14:36→21:04)
[2018-12-13] MEDS: THIAMINE HCL 100 MG TABLET (FP) PO SCH (21:03)
[2018-12-13] MEDS: risperiDONE 3 MG TABLET PO SCH (21:03)
[2018-12-13] MEDS: ATORVASTATIN CA 20 MG TABLET (FP) PO SCH (21:03)
[2018-12-13] MEDS: METHYL SALICYLATE/MENTHOL OINT 30 GM TUBE TP SCH (21:04)
[2018-12-13] MEDS: NAPROXEN 500 MG TABLET (FP) PO PRN (21:04)
[2018-12-13] MEDS: LIDOCAINE PATCH REMOVAL MC SCH (21:04)
[2018-12-14] MEDS: metFORMIN HCL 500 MG TABLET (FP) PO SCH ×2 (06:22→16:35)
[2018-12-14] MEDS: NICOTINE POLACRILEX 4 MG GUM BUC PRN ×4 (06:22→21:00)
[2018-12-14] MEDS: ATENOLOL 25 MG TABLET (FP) PO SCH (09:46)
[2018-12-14] MEDS: amLODIPine BESYLATE 10 MG TABLET (FP) PO SCH (09:46)
[2018-12-14] MEDS: CITALOPRAM HYDROBROMIDE 20 MG TABLET (FP) PO SCH (09:46)
[2018-12-14] MEDS: NICOTINE 14 MG/24 HOURS TOPICAL PATCH TD SCH (09:46)
[2018-12-14] MEDS: LIDOCAINE 5% TOPICAL PATCH TP SCH (09:46)
[2018-12-14] MEDS: HYDROCHLOROTHIAZIDE 25 MG TABLET (FP) PO SCH (09:46)
[2018-12-14] MEDS: PANTOPRAZOLE 40 MG TABLET (FP) PO SCH (09:46)
[2018-12-14] MEDS: ASPIRIN 81 MG CHEWABLE TABLETS PO SCH (09:46)
[2018-12-14] MEDS: PRENATAL VITAMINS W/ FOLIC ACID TABLET (FP) PO SCH (09:46)
[2018-12-14] MEDS: OMEGA-3 ACID ETHYL ESTERS (FATTY-ACIDS) 1 GM CAPSULE (FP) PO SCH (09:47)
[2018-12-14] MEDS: NAPROXEN 500 MG TABLET (FP) PO PRN (11:05)
[2018-12-14] MEDS: MAG HYDROX/AL HYDROX/SIMETH 30 ML UNIT-DOSE CUP PO PRN (13:15)
[2018-12-14] MEDS: ATORVASTATIN CA 20 MG TABLET (FP) PO SCH (20:59)
[2018-12-14] MEDS: THIAMINE HCL 100 MG TABLET (FP) PO SCH (20:59)
[2018-12-14] MEDS: risperiDONE 3 MG TABLET PO SCH (20:59)
[2018-12-14] MEDS: METHYL SALICYLATE/MENTHOL OINT 30 GM TUBE TP SCH (21:00)
[2018-12-14] MEDS: LIDOCAINE PATCH REMOVAL MC SCH (21:00)
[2018-12-15] MEDS: metFORMIN HCL 500 MG TABLET (FP) PO SCH ×2 (06:00→16:33)
[2018-12-15] MEDS: NICOTINE POLACRILEX 4 MG GUM BUC PRN ×5 (06:01→21:03)
[2018-12-15] MEDS: PANTOPRAZOLE 40 MG TABLET (FP) PO SCH (09:16)
[2018-12-15] MEDS: CITALOPRAM HYDROBROMIDE 20 MG TABLET (FP) PO SCH (09:16)
[2018-12-15] MEDS: OMEGA-3 ACID ETHYL ESTERS (FATTY-ACIDS) 1 GM CAPSULE (FP) PO SCH (09:16)
[2018-12-15] MEDS: amLODIPine BESYLATE 10 MG TABLET (FP) PO SCH (09:16)
[2018-12-15] MEDS: LIDOCAINE 5% TOPICAL PATCH TP SCH (09:16)
[2018-12-15] MEDS: NICOTINE 14 MG/24 HOURS TOPICAL PATCH TD SCH (09:16)
[2018-12-15] MEDS: PRENATAL VITAMINS W/ FOLIC ACID TABLET (FP) PO SCH (09:16)
[2018-12-15] MEDS: HYDROCHLOROTHIAZIDE 25 MG TABLET (FP) PO SCH (09:16)
[2018-12-15] MEDS: ASPIRIN 81 MG CHEWABLE TABLETS PO SCH (09:16)
[2018-12-15] MEDS: ATENOLOL 25 MG TABLET (FP) PO SCH (09:16)
[2018-12-15] MEDS: NAPROXEN 500 MG TABLET (FP) PO PRN (09:17)
[2018-12-15] MEDS: MAG HYDROX/AL HYDROX/SIMETH 30 ML UNIT-DOSE CUP PO PRN (10:27)
[2018-12-15] MEDS: ATORVASTATIN CA 20 MG TABLET (FP) PO SCH (21:01)
[2018-12-15] MEDS: risperiDONE 3 MG TABLET PO SCH (21:01)
[2018-12-15] MEDS: THIAMINE HCL 100 MG TABLET (FP) PO SCH (21:02)
[2018-12-15] MEDS: METHYL SALICYLATE/MENTHOL OINT 30 GM TUBE TP SCH (21:02)
[2018-12-15] MEDS: LIDOCAINE PATCH REMOVAL MC SCH (21:02)
[2018-12-16] MEDS: metFORMIN HCL 500 MG TABLET (FP) PO SCH ×2 (06:04→16:34)
[2018-12-16] MEDS: NICOTINE POLACRILEX 4 MG GUM BUC PRN ×5 (06:05→21:04)
[2018-12-16] MEDS: OMEGA-3 ACID ETHYL ESTERS (FATTY-ACIDS) 1 GM CAPSULE (FP) PO SCH (10:06)
[2018-12-16] MEDS: PANTOPRAZOLE 40 MG TABLET (FP) PO SCH (10:07)
[2018-12-16] MEDS: ATENOLOL 25 MG TABLET (FP) PO SCH (10:07)
[2018-12-16] MEDS: HYDROCHLOROTHIAZIDE 25 MG TABLET (FP) PO SCH (10:07)
[2018-12-16] MEDS: CITALOPRAM HYDROBROMIDE 20 MG TABLET (FP) PO SCH (10:07)
[2018-12-16] MEDS: amLODIPine BESYLATE 10 MG TABLET (FP) PO SCH (10:07)
[2018-12-16] MEDS: LIDOCAINE 5% TOPICAL PATCH TP SCH (10:07)
[2018-12-16] MEDS: ASPIRIN 81 MG CHEWABLE TABLETS PO SCH (10:07)
[2018-12-16] MEDS: PRENATAL VITAMINS W/ FOLIC ACID TABLET (FP) PO SCH (10:08)
[2018-12-16] MEDS: NICOTINE 14 MG/24 HOURS TOPICAL PATCH TD SCH (10:09)
[2018-12-16] MEDS: NAPROXEN 500 MG TABLET (FP) PO PRN (17:48)
[2018-12-16] MEDS: ATORVASTATIN CA 20 MG TABLET (FP) PO SCH (21:03)
[2018-12-16] MEDS: risperiDONE 3 MG TABLET PO SCH (21:03)
[2018-12-16] MEDS: THIAMINE HCL 100 MG TABLET (FP) PO SCH (21:03)
[2018-12-16] MEDS: LIDOCAINE PATCH REMOVAL MC SCH (21:04)
[2018-12-16] MEDS: METHYL SALICYLATE/MENTHOL OINT 30 GM TUBE TP SCH (21:04)
[2018-12-17] MEDS: metFORMIN HCL 500 MG TABLET (FP) PO SCH ×2 (06:22→16:37)
[2018-12-17] MEDS: NICOTINE POLACRILEX 4 MG GUM BUC PRN ×6 (06:25→21:04)
[2018-12-17] MEDS: NICOTINE 14 MG/24 HOURS TOPICAL PATCH TD SCH (10:13)
[2018-12-17] MEDS: PRENATAL VITAMINS W/ FOLIC ACID TABLET (FP) PO SCH (10:14)
[2018-12-17] MEDS: HYDROCHLOROTHIAZIDE 25 MG TABLET (FP) PO SCH (10:15)
[2018-12-17] MEDS: amLODIPine BESYLATE 10 MG TABLET (FP) PO SCH (10:15)
[2018-12-17] MEDS: OMEGA-3 ACID ETHYL ESTERS (FATTY-ACIDS) 1 GM CAPSULE (FP) PO SCH (10:15)
[2018-12-17] MEDS: PANTOPRAZOLE 40 MG TABLET (FP) PO SCH (10:15)
[2018-12-17] MEDS: CITALOPRAM HYDROBROMIDE 20 MG TABLET (FP) PO SCH (10:15)
[2018-12-17] MEDS: ASPIRIN 81 MG CHEWABLE TABLETS PO SCH (10:15)
[2018-12-17] MEDS: ATENOLOL 25 MG TABLET (FP) PO SCH (10:15)
[2018-12-17] MEDS: LIDOCAINE 5% TOPICAL PATCH TP SCH (10:18)
[2018-12-17] MEDS: MAG HYDROX/AL HYDROX/SIMETH 30 ML UNIT-DOSE CUP PO PRN (12:39)
[2018-12-17] MEDS: ATORVASTATIN CA 20 MG TABLET (FP) PO SCH (21:03)
[2018-12-17] MEDS: risperiDONE 3 MG TABLET PO SCH (21:03)
[2018-12-17] MEDS: LIDOCAINE PATCH REMOVAL MC SCH (21:03)
[2018-12-17] MEDS: METHYL SALICYLATE/MENTHOL OINT 30 GM TUBE TP SCH (21:03)
[2018-12-17] MEDS: THIAMINE HCL 100 MG TABLET (FP) PO SCH (21:04)
[2018-12-18] MEDS: NICOTINE POLACRILEX 4 MG GUM BUC PRN ×4 (06:22→19:13)
[2018-12-18] MEDS: metFORMIN HCL 500 MG TABLET (FP) PO SCH ×2 (06:22→16:33)
[2018-12-18] MEDS: PRENATAL VITAMINS W/ FOLIC ACID TABLET (FP) PO SCH (09:56)
[2018-12-18] MEDS: OMEGA-3 ACID ETHYL ESTERS (FATTY-ACIDS) 1 GM CAPSULE (FP) PO SCH (09:56)
[2018-12-18] MEDS: ATENOLOL 25 MG TABLET (FP) PO SCH (09:56)
[2018-12-18] MEDS: CITALOPRAM HYDROBROMIDE 20 MG TABLET (FP) PO SCH (09:56)
[2018-12-18] MEDS: HYDROCHLOROTHIAZIDE 25 MG TABLET (FP) PO SCH (09:56)
[2018-12-18] MEDS: amLODIPine BESYLATE 10 MG TABLET (FP) PO SCH (09:56)
[2018-12-18] MEDS: PANTOPRAZOLE 40 MG TABLET (FP) PO SCH (09:56)
[2018-12-18] MEDS: LIDOCAINE 5% TOPICAL PATCH TP SCH (09:56)
[2018-12-18] MEDS: ASPIRIN 81 MG CHEWABLE TABLETS PO SCH (09:56)
[2018-12-18] MEDS: NICOTINE 14 MG/24 HOURS TOPICAL PATCH TD SCH (09:57)
--- NOTE | 2018-12-18 15:11 | PN ---
[facility] Progress Note Note: Patient is scheduled for discharged tomorrow. Scripts for 30 days supply of medications(Wellbutrin XL 300 mg/day, Risperdal 6 mg mg/hs, Celexa 20 mg/day) [facility] [address] [place] [address]
[2018-12-18] MEDS: risperiDONE 3 MG TABLET PO SCH (21:06)
[2018-12-18] MEDS: THIAMINE HCL 100 MG TABLET (FP) PO SCH (21:06)
[2018-12-18] MEDS: ATORVASTATIN CA 20 MG TABLET (FP) PO SCH (21:06)
[2018-12-18] MEDS: LIDOCAINE PATCH REMOVAL MC SCH (21:07)
[2018-12-18] MEDS: METHYL SALICYLATE/MENTHOL OINT 30 GM TUBE TP SCH (21:07)
[2018-12-19] MEDS: metFORMIN HCL 500 MG TABLET (FP) PO SCH (06:20)
[2018-12-19] MEDS: NICOTINE POLACRILEX 4 MG GUM BUC PRN ×2 (06:21→09:18)
[2018-12-19 07:04] VITALS: BP 147/73; PULSE 69; TEMP 97.8
--- NOTE | 2018-12-19 08:28 | DS ---
[facility] Rehab Discharge Summary - [facility] Rehab Discharge Summary Admission Date: 12/05/18 Discharge Date: 12/20/18 - History Present History: Alcohol dependence, Cocaine dependence Additional Comments: Pt is a 63 y/o male with a hx of RADHA admitted to rehab and discharged today. Pt has been referred to [facility] for CD aftercare treatment. Pertinent Past History: Arthritis Type 2 DM HTN HLD Use of Cane for ambulation S/P Total Hip Replacement Chronic back Pain - Discharge Physical Exam Vital Signs: Vital Signs Temperature 97.8 F 12/19/18 06:59 Pulse Rate 69 12/19/18 06:59 Respiratory Rate 18 12/19/18 06:59 Blood Pressure 147/73 12/19/18 06:59 O2 Sat by Pulse Oximetry (%) Alert o x 3, nad oob ambulating with steady gait with cane cardiac:s1 s2,rrr lungs:cta,elvi. abdomen:soft,+bs, Pertinent Admission Physical Exam Findings: Laboratory Tests 12/05/18 12/05/18 12/06/18 11:40 16:57 05:51 WBC 2.5 L RBC 3.82 L Hgb 13.1 Hct 39.3 MCV 102.9 H MCH 34.3 H MCHC 33.3 RDW 15.3 Plt Count 172 MPV 9.7 Potassium POC Glucometer 114 137 12/06/18 12/06/18 12/07/18 09:00 16:37 05:52 WBC RBC Hgb Hct MCV MCH MCHC RDW Plt Count MPV Potassium 4.0 POC Glucometer 95 117 12/07/18 12/08/18 12/08/18 16:32 06:17 16:40 WBC RBC Hgb Hct MCV MCH MCHC RDW Plt Count MPV Potassium POC Glucometer 130 126 100 12/09/18 12/09/18 12/10/18 06:43 16:40 06:11 WBC RBC Hgb Hct MCV MCH MCHC RDW Plt Count MPV Potassium POC Glucometer 103 106 134 12/10/18 12/11/18 12/11/18 16:42 06:28 17:10 WBC RBC Hgb Hct MCV MCH MCHC RDW Plt Count MPV Potassium POC Glucometer 105 108 95 12/12/18 12/12/18 12/13/18 05:58 16:38 05:59 WBC RBC Hgb Hct MCV MCH MCHC RDW Plt Count MPV Potassium POC Glucometer 123 113 134 12/13/18 12/14/18 12/14/18 16:43 06:21 16:34 WBC RBC Hgb Hct MCV MCH MCHC RDW Plt Count MPV Potassium POC Glucometer 111 114 87 12/15/18 12/15/18 12/16/18 05:58 16:33 05:08 WBC RBC Hgb Hct MCV MCH MCHC RDW Plt Count MPV Potassium POC Glucometer 96 90 110 12/16/18 12/17/18 12/17/18 16:35 06:21 16:40 WBC RBC Hgb Hct MCV MCH MCHC RDW Plt Count MPV Potassium POC Glucometer 117 119 111 12/18/18 12/18/18 12/19/18 06:21 16:33 06:19 WBC RBC Hgb Hct MCV MCH MCHC RDW Plt Count MPV Potassium POC Glucometer 113 99 145 - Treatment Discharge Condition: Discharge condition good Hospital Course: Rehabilitated safely and responded well CD aftercare referral accepted. - Medication Discharge Medications: Ambulatory Orders Amlodipine Besylate [Norvasc -] 10 mg PO DAILY #14 tab 10/26/17 Aspirin Coated [Ecotrin -] 81 mg PO DAILY #14 tab 10/26/17 Atenolol [Tenormin -] 25 mg PO DAILY #14 tablet 10/26/17 Atorvastatin Ca [Lipitor] 20 mg PO HS #14 tablet 10/26/17 Hydrochlorothiazide 25 mg PO DAILY 14 Days tablet 10/26/17 [place]-3 Acid Ethyl Esters [Lovaza -] 1 gm PO DAILY #14 cap 10/26/17 metFORMIN HCL [Glucophage -] 500 mg PO BIDAC #30 tablet 10/26/17 Bupropion HCl [Wellbutrin Xl -] 300 mg PO DAILY #30 tab.sr.24h 10/29/17 Ibuprofen 400 mg PO TID PRN 09/02/18 Risperidone [Risperdal] 6 mg PO DAILY 09/02/18 Citalopram Hydrobromide [Celexa -] 20 mg PO DAILY 12/05/18 Risperidone [Risperdal -] 3 mg PO HS 12/05/18 Risperidone [Risperdal] 1 mg PO DAILY 12/05/18 Bupropion HCl [Wellbutrin Xl -] 300 mg PO DAILY #30 tab.sr.24h 12/18/18 Citalopram Hydrobromide [Celexa -] 20 mg PO DAILY #30 tablet 12/18/18 Risperidone [Risperdal -] 6 mg PO HS #60 tablet 12/18/18 - Medication-Assisted Treatment (MAT) Medication-Assisted Treatment (MAT): No - Discharge Instructions Diet, activity, other medical instructions: Diet:KERRY/NCS Activity: oob ad gary with cane Other medical instructions:Follow up with your primary care provider Dr. Ochoa on [address] [facility], [place], [place] for medical management in 1 -2 weeks after discharge. Follow up with CD aftercare referral with [facility] program on [place], [place] as recommended. - Diagnosis (1) Alcohol dependence Status: Chronic Qualifiers: Substance use status: uncomplicated Qualified Code(s): F10.20 - Alcohol dependence, uncomplicated (2) Nicotine dependence Status: Chronic Qualifiers: Nicotine product type: cigarettes Substance use status: uncomplicated Qualified Code(s): F17.210 - Nicotine dependence, cigarettes, uncomplicated (3) Cocaine dependence Status: Chronic Qualifiers: Substance use status: uncomplicated Qualified Code(s): F14.20 - Cocaine dependence, uncomplicated (4) Chronic pain Status: Chronic Qualifiers: Chronic pain type: due to trauma Qualified Code(s): G89.21 - Chronic pain due to trauma (5) DM2 (diabetes mellitus, type 2) Status: Chronic Qualifiers: Diabetes mellitus intermediate insulin use: unspecified intermediate insulin use status Diabetes mellitus complication status: without complication Qualified Code(s): E11.9 - Type 2 diabetes mellitus without complications (6) Essential hypertension Status: Chronic (7) Hypercholesteremia Status: Chronic (8) Use of cane as ambulatory aid Status: Chronic (9) Spinal stenosis, lumbosacral region Status: Resolved - Follow-up Referral Minutes to complete discharge: 25 - AMA Did Patient Leave Against Medical Advice: No Additional Comments: Pt reports he has own meds.
[2018-12-19] MEDS: ASPIRIN 81 MG CHEWABLE TABLETS PO SCH (09:16)
[2018-12-19] MEDS: NAPROXEN 500 MG TABLET (FP) PO PRN (09:16)
[2018-12-19] MEDS: OMEGA-3 ACID ETHYL ESTERS (FATTY-ACIDS) 1 GM CAPSULE (FP) PO SCH (09:16)
[2018-12-19] MEDS: CITALOPRAM HYDROBROMIDE 20 MG TABLET (FP) PO SCH (09:16)
[2018-12-19] MEDS: PRENATAL VITAMINS W/ FOLIC ACID TABLET (FP) PO SCH (09:16)
[2018-12-19] MEDS: PANTOPRAZOLE 40 MG TABLET (FP) PO SCH (09:16)
[2018-12-19] MEDS: amLODIPine BESYLATE 10 MG TABLET (FP) PO SCH (09:16)
[2018-12-19] MEDS: LIDOCAINE 5% TOPICAL PATCH TP SCH (09:16)
[2018-12-19] MEDS: ATENOLOL 25 MG TABLET (FP) PO SCH (09:16)
[2018-12-19] MEDS: HYDROCHLOROTHIAZIDE 25 MG TABLET (FP) PO SCH (09:16)
[2018-12-19] MEDS: NICOTINE 14 MG/24 HOURS TOPICAL PATCH TD SCH (09:17)
== END 2018-12-19 09:45 | disposition home or self-care (01) | DRG 772 ==
LOC: YASAS 12:11 → Y5N 12:13
PROVIDERS: ADMIT Neuromusculoskeletal Medicine & OMM; ATTEND Neuromusculoskeletal Medicine & OMM
PROC: HZ42ZZZ Group Counseling for Substance Abuse Treatment, Cognitive-Behavioral (ICD-10-PCS; principal; 2018-12-05)
DX: F10.20 Alcohol dependence, uncomplicated (principal); F14.20 Cocaine dependence, uncomplicated; F17.210 Nicotine dependence, cigarettes, uncomplicated; F19.282 Other psychoactive substance dependence with psychoactive substance-induced sleep disorder; F19.24 Other psychoactive substance dependence with psychoactive substance-induced mood disorder; E78.00 Pure hypercholesterolemia, unspecified; I10 Essential (primary) hypertension; E11.9 Type 2 diabetes mellitus without complications; Z79.4 Long term (current) use of insulin; M48.07 Spinal stenosis, lumbosacral region; G89.21 Chronic pain due to trauma; Z96.641 Presence of right artificial hip joint; Z99.89 Dependence on other enabling machines and devices; Z88.0 Allergy status to penicillin; Z88.1 Allergy status to other antibiotic agents
CPT/HCPCS: 36415; 82962; 84132; 85027; J2794

== ENCOUNTER 2019-03-05 17:02 | Inpatient (IN) | payer OTHER ==
[2019-03-05 17:42] VITALS: BMI 27.4
--- NOTE | 2019-03-05 18:32 | HP ---
CIWA Score Nausea/Vomitin-No Nausea/No Vomiting Muscle Tremors: 2 Anxiety: 2 Agitation: 3 Paroxysmal Sweats: No Perspiration Orientation: 0-Oriented Tacttile Disturbances: 1-Very Mild Itch/Numbness Auditory Disturbances: 2-Mild Harshness/Frighten Visual Disturbances: 2-Mild Sensitivity Headache: 0-None Present CIWA-Ar Total Score: 12 - Admission Criteria OASAS Guidelines: Admission for Medically Managed Detox: Requires at least one of the followin. CIWA greater than 12 2. Seizures within the past 24 hours 3. Delirium tremens within the past 24 hours 4. Hallucinations within the past 24 hours 5. Acute intervention needed for co occurring medical disorder 6. Acute intervention needed for co occurring psychiatric disorder 7. Severe withdrawal that cannot be handled at a lower level of care (continued vomiting, continued diarrhea, abnormal vital signs) requiring intravenous medication and/or fluids 8. Admitting History and Physical - Smoking History Smoking history: Current every day smoker Have you smoked in the past 12 months: Yes Aproximately how many cigarettes per day: 20 - Alcohol/Substance Use Hx Alcohol Use: Yes Admission [facility] Allergies/Adverse Reactions: Allergies Allergy/AdvReac Type Severity Reaction Status Date / Time enalapril [Enalapril] Allergy Severe Swelling Verified 03/05/19 17:27 levofloxacin [From Levaquin] Allergy Severe Hives Verified 03/05/19 17:27 haloperidol [From Haldol] AdvReac Severe stiffness Verified 03/05/19 17:27 haloperidol lactate AdvReac Severe sfiffness Verified 03/05/19 17:27 [From Haldol] History of Present Illness: 63 y.o. male here requesting detox from etoh use , reports 1 pint/ day , reports tremors if not drinking , denies seizures , + blackouts, latest use this morning he had a beer . cocaine 50 $ almost daily tobacco : 1/2 ppd cannabis : 3 x/week. PMHx DM, HLD, HTN, angina , schizoaffective disorder, spinal stenosis, arthritis, depression , anxiety , right thr 16 years ago Exam Limitations: Clinical Condition - Ebola screening Have you traveled outside of the country in the last 21 days: No (N) Have you had contact with anyone from an Ebola affected area: No Do you have a fever: No - Review of Systems Constitutional: Loss of Appetite EENT: reports: Other (glasses, denies dysphagia) Respiratory: reports: No Symptoms reported Cardiac: reports: No Symptoms Reported GI: reports: Constipated, Poor Appetite, Other (states was in [facility] 2/2 abdominal 1-2 weeks before xmas, per pt " close to taking out my gallbladder " , states liver enzymes were elevated , now feeling better) : reports: No Symptoms Reported Musculoskeletal: reports: Back Pain (hx of spinal stenosis , tx w/ Naprosyn and lidocaine patch) Integumentary: reports: No Symptoms Reported Neuro: reports: See HPI, Headache Endocrine: reports: See HPI (dm dx since 04/2017) Hematology: reports: No Symptoms Reported Patient History - Patient Medical History Hx Anemia: Yes Hx Asthma: No Hx Chronic Obstructive Pulmonary Disease (COPD): No Hx Cancer: No Hx Cardiac Disorders: No Hx Congestive Heart Failure: No Hx Hypertension: Yes Hx Hypercholesterolemia: Yes Hx Pacemaker: No HX Cerebrovascular Accident: No Hx Seizures: No Hx Dementia: No Hx Diabetes: Yes Hx Gastrointestinal Disorders: No Hx Liver Disease: No Hx Genitourinary Disorders: No Hx Sexually Transmitted Disorders: No Hx Renal Disease (ESRD): No Hx Thyroid Disease: No Hx Human Immunodeficiency Virus (HIV): No Hx Hepatitis C: No (DENIES) Hx Depression: Yes (ON MED) Hx Suicide Attempt: No Hx Bipolar Disorder: No Hx Schizophrenia: Yes - Patient Surgical History Past Surgical History: Yes Hx Neurologic Surgery: No Hx Cataract Extraction: No Hx Cardiac Surgery: No Hx Lung Surgery: No Hx Breast Surgery: No Hx Breast Biopsy: No Hx Abdominal Surgery: No Hx Appendectomy: No Hx Cholecystectomy: No Hx Genitourinary Surgery: No Hx Section: No Hx Orthopedic Surgery: Yes (right hip replacement in 04/2003 at [facility] for avascular necrosis) Other Surgical History: history of fracture of right foot Anesthesia Reaction: No - PPD History Results: cxr(-)09/03/2018 - Smoking Cessation Smoking history: Current every day smoker Have you smoked in the past 12 months: Yes Aproximately how many cigarettes per day: 20 Cigars Per Day: 0 Hx Chewing Tobacco Use: No Initiated information on smoking cessation: No - Substances abused None Other (specify): alcohol Substance route: Oral Frequency: Daily Amount used: 1 pint of cognac/day Age of first use: 15 Date of last use: 03/05/19 Cocaine Substance route: Inhalation Frequency: Daily Amount used: 50 dollars Age of first use: 20 Date of last use: 03/04/19 Marijuana/Hashish Substance route: Smoking Frequency: Daily Amount used: 20 dollars Age of first use: 16 Date of last use: 03/04/19 Admission Physical Exam BHS - Vital Signs Vital Signs: Vital Signs - 24 hr 03/05/19 17:27 Temperature 98.0 F Respiratory 20 Rate Blood Pressure 115/77 - Physical General Appearance: Yes: Mild Distress, Anxious HEENTM: Yes: EOMI, Hearing grossly Normal, Normocephalic, Normal Voice, Other ( poor dentition) Respiratory: Yes: Chest Non-Tender, Lungs Clear, Normal Breath Sounds, No Respiratory Distress, No Accessory Muscle Use Neck: Yes: No masses,lesions,Nodules, Trachea in good position Cardiology: Yes: Regular Rhythm, Regular Rate, S1, S2, Other (pt was advised to f/up w/ cardiology , agreeable) Abdominal: Yes: Non Tender, Soft Musculoskeletal: Yes: Gait Steady Extremities: Yes: Normal Range of Motion, Non-Tender Neurological: Yes: Fully Oriented, Alert, Motor Strength 5/5 Integumentary: Yes: Warm - Diagnostic (1) Alcohol dependence with uncomplicated withdrawal Current Visit: Yes Status: Chronic (2) Cocaine dependence Current Visit: Yes Status: Chronic Qualifiers: Substance use status: uncomplicated Qualified Code(s): F14.20 - Cocaine dependence, uncomplicated Breathalyzer - Breathalyzer Breathalyzer: 0 Urine Drug Screen - Test Device Lot number: [id number] Expiration date: 09/11/20 - Control Is test valid?: Yes - Results Drug screen NEGATIVE: No Urine drug screen results: THC-Marijuana, JESUS ALBERTO-Cocaine Inpatient Rehab Admission - Rehab Decision to Admit Inpatient rehab admission?: No
[2019-03-05] MEDS ORDERED: MAG HYDROX/AL HYDROX/SIMETH 30 ML UNIT-DOSE CUP PO PRN (18:50)
[2019-03-05] MEDS ORDERED: BISMUTH SUBSALICYLATE 524 MG/30 ML UD PO PRN (18:50)
[2019-03-05] MEDS ORDERED: MAGNESIUM CITRATE 300 ML BOTTLE PO PRN (18:50)
[2019-03-05] MEDS ORDERED: MENTHOL/PHENOL 1 EACH UD MM PRN (18:50)
[2019-03-05] MEDS ORDERED: MELATONIN 5 MG TABLETS PO PRN (18:50)
[2019-03-05] MEDS ORDERED: MAGNESIUM HYDROX 2400MG/30ML ORAL SUSPENSION 30 ML CUP PO PRN (18:50)
[2019-03-05] MEDS ORDERED: IBUPROFEN 400 MG TABLET (FP) PO PRN (18:50)
[2019-03-05] MEDS ORDERED: hydrOXYzine PAMOATE 25 MG CAPSULE (FP) PO PRN (18:50)
[2019-03-05] MEDS ORDERED: ACETAMINOPHEN 325 MG TABLET (FP) PO PRN ×2 (18:50)
[2019-03-05] MEDS ORDERED: chlordiazePOXIDE HCL 10 MG CAPSULE PO PRN (18:51)
[2019-03-05] MEDS: chlordiazePOXIDE HCL 25 MG CAPSULE PO SCH (21:14)
[2019-03-05] MEDS: THIAMINE HCL 100 MG TABLET (FP) PO SCH (21:14)
[2019-03-05] MEDS: ATORVASTATIN CA 20 MG TABLET (FP) PO SCH (21:14)
[2019-03-06] MEDS: chlordiazePOXIDE HCL 25 MG CAPSULE PO SCH ×3 (05:29→22:25)
[2019-03-06] MEDS: NICOTINE POLACRILEX 4 MG GUM BUC PRN ×3 (05:32→17:07)
[2019-03-06] MEDS: metFORMIN HCL 500 MG TABLET (FP) PO SCH ×2 (06:12→17:06)
--- NOTE | 2019-03-06 08:33 | CONSULT ---
[facility] Psychiatric Consult - Data Date of interview: 03/06/19 Admission source: Self-referred Identifying data: Mr Noonan is a 63 years old single Black male, unemployed receiving pubilc assistance, domiciled seeking detox treatment for alcohol, cocaine and cannabis Substance Abuse History: Reports history of alcohol, cocaine and marijuana use use. Refer to addiction counselor's summary for furthr information Medical History: Significant for hypertension, dyslipidemia, type 2 diabetes mellitus, angina pectoris, spinal stenosis, lower back pain, arthritis L3-L4, history of prophylactic treatment for TB with INH (2004) and orthosurgery for right hip replacement for avascular necrosis (2003) and fracture right fibula in 1996. Smokes 10 cigarettes daily Psychiatric History: Patient is well known to health underwriter from previous admissions to this facility. Historical narrative remains consistent. He reports onset of psychiatric disturbances in 2003 when he was admitted to [facility] and diagnosed with Schizoaffective Disorder and PTSD. Reports multiple psychiatric admissions to various institutions including to [facility], [facility], [facility], [facility], [facility] in [facility], [facility] and most recently the [facility] from June-July 2017. During most recent admission to this facility, he was seen by health underwriter and he was prescribed Wellbutrin XL 300 mg/day, Celexa 20 mg/day and Risperdal 6 mg/hs. Told health underwriter that he was recently on inpatient rehab at [facility] for 14 days in December 2018. There he saw Dr Keyes and he was prescribed Paliperidone 3 mg/bid and Cogentin 1 mg/bid. He said that he has been off medications since discharge from [facility] approximately 2 months ago. Reportedly he had several suicide attempts, most recently in January 2017,via deliberate self exposure to oncoming traffic. At present, denies experienicing psychotic, manic or depressive symptoms, S/H ideations. Requests to resume Paliperidone and Cogentin Physical/Sexual Abuse/Trauma History: Patient denies history of emotional, sexual or physical abuse as well as DV relationship. 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 Served in [employer] [facility], [facility] [employer] [facility] and [place] in the . No report of flashbacks or nightmares. Additional Comment: Reports history of multiple previous arrests including 3 felony convictions. Reports being off parole for 8 years Mental Status Exam - Mental Status Exam Alert and Oriented to: Time, Place, Person Cognitive Function: Fair Patient Appearance: Well Groomed Mood: Hopeful, Euthymic Patient Behavior: Cooperative Speech Pattern: Clear Voice Loudness: Normal Thought Process: Intact, Goal Oriented Hallucinations: Denies Suicidal Ideation: Denies Homicidal Ideation: Denies Insight/Judgement: Poor Sleep: Well Appetite: Good, Fair Muscle strength/Tone: Normal Gait/Station: Normal Psychiatric Findings - Problem List ([place] 1, 2,3) (1) Schizoaffective disorder Current Visit: No Status: Chronic Qualifiers: Schizoaffective disorder type: depressive Qualified Code(s): F25.1 - Schizoaffective disorder, depressive type Comment: By history. On medications. (2) Alcohol dependence with uncomplicated withdrawal Current Visit: Yes Status: Acute (3) Cocaine dependence Current Visit: Yes Status: Acute Qualifiers: Substance use status: uncomplicated Qualified Code(s): F14.20 - Cocaine dependence, uncomplicated (4) Cannabis dependence, uncomplicated Current Visit: No Status: Acute (5) Nicotine use disorder Current Visit: No Status: Chronic (6) Arthritis Current Visit: No Status: Chronic (7) Back pain Current Visit: No Status: Chronic Qualifiers: Back pain location: low back pain Chronicity: chronic Back pain laterality: midline Sciatica presence: without sciatica Qualified Code(s): M54.5 - Low back pain; G89.29 - Other chronic pain (8) DM2 (diabetes mellitus, type 2) Current Visit: No Status: Chronic Qualifiers: Diabetes mellitus [facility] insulin use: 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 Diabetes mellitus complication status: without complication Qualified Code(s): E11.9 - Type 2 diabetes mellitus without complications (9) Essential hypertension Current Visit: No Status: Chronic (10) Hypercholesteremia Current Visit: No Status: Chronic (11) PPD positive Current Visit: No Status: Resolved (12) Spinal stenosis, lumbosacral region Current Visit: No Status: Resolved (13) PTSD (post-traumatic stress disorder) Current Visit: Yes Status: Chronic - Initial Treatment Plan Initial Treatment Plan: 1) Start Risperda 2 mg po HS and Cogentin 0.5 mg po HS( Paliperidone is not facility formulary). 2) Continue inpatient detoxofication
--- NOTE | 2019-03-06 09:03 | PN ---
S CIWA - CIWA Score Nausea/Vomitin Muscle Tremors: 2 Anxiety: 2 Agitation: 0-Normal Activity Paroxysmal Sweats: 2 Orientation: 0-Oriented Tacttile Disturbances: 2-Mild Itch/Numbness/Burn Auditory Disturbances: 0-None Visual Disturbances: 1-Very Mild Sensitivity Headache: 1-Very Mild CIWA-Ar Total Score: 12 BHS Progress Note (SOAP) Subjective: Patient is a 63 yo male with hx alcohol dependence on librium detox protocol c/ o of interrupted sleep, sweats, bodyaches, back pain. Denies chest pain, SOB or parasthesia. Objective: 03/06/19 09:02 Vital Signs Temperature 98.1 F 03/06/19 06:28 Pulse Rate 57 L 03/06/19 06:28 Respiratory Rate 19 03/06/19 06:28 Blood Pressure 156/76 03/06/19 06:28 O2 Sat by Pulse Oximetry (%) Laboratory Last Values POC Glucometer 109 UNITS (80-120) 03/06/19 05:34 Laboratory Last Values WBC 3.4 K/mm3 (4.0-10.0) L 03/06/19 08:00 RBC 4.05 M/mm3 (4.00-5.60) 03/06/19 08:00 Hgb 13.5 GM/dL (11.7-16.9) 03/06/19 08:00 Hct 39.5 % (35.4-49) 03/06/19 08:00 MCV 97.6 fl (80-96) H 03/06/19 08:00 MCH 33.4 pg (25.7-33.7) 03/06/19 08:00 MCHC 34.3 g/dl (32.0-35.9) 03/06/19 08:00 RDW 13.9 % (11.9-15.9) 03/06/19 08:00 Plt Count 201 K/MM3 (134-434) 03/06/19 08:00 MPV 8.9 fl (7.5-11.1) 03/06/19 08:00 Sodium 141 mmol/L (136-145) 03/06/19 08:00 Potassium 4.2 mmol/L (3.5-5.1) 03/06/19 08:00 Chloride 105 mmol/L (98-107) 03/06/19 08:00 Carbon Dioxide 31 mmol/L (21-32) 03/06/19 08:00 Anion Gap 5 MMOL/L (8-16) L 03/06/19 08:00 BUN 17.4 mg/dL (7-18) 03/06/19 08:00 Creatinine 1.2 mg/dL (0.55-1.3) 03/06/19 08:00 Est GFR (CKD-EPI)AfAm 75.19 03/06/19 08:00 Est GFR (CKD-EPI)NonAf 64.87 03/06/19 08:00 POC Glucometer 109 UNITS (80-120) 03/06/19 05:34 Random Glucose 129 mg/dL (74-106) H 03/06/19 08:00 Calcium 9.7 mg/dL (8.5-10.1) 03/06/19 08:00 Total Bilirubin 0.9 mg/dL (0.2-1) 03/06/19 08:00 AST 16 U/L (15-37) 03/06/19 08:00 ALT 21 U/L (13-61) 03/06/19 08:00 Alkaline Phosphatase 74 U/L (45-117) 03/06/19 08:00 Total Protein 7.4 g/dl (6.4-8.2) 03/06/19 08:00 Albumin 3.5 g/dl (3.4-5.0) 03/06/19 08:00 labs reviewed Assessment: 03/06/19 12:11 Patient AOx3 felipe cute distress poor dentition no adventitious breath sounds full ROM ambulating in the unit withdrawal sx Plan: EKG reviewed with patient reports hx of chronic bradycardia, advised to follow up with primary care provider, verbalizes understanding. increase fluids lidocaine patch for back pain continue detox continue to monitor
[2019-03-06] MEDS: PRENATAL VITAMINS W/ FOLIC ACID TABLET (FP) PO SCH (10:08)
[2019-03-06] MEDS: amLODIPine BESYLATE 10 MG TABLET (FP) PO SCH (10:08)
[2019-03-06] MEDS: HYDROCHLOROTHIAZIDE 25 MG TABLET (FP) PO SCH (10:08)
[2019-03-06] MEDS: ASPIRIN COATED 81 MG TABLET.EC PO SCH (10:08)
[2019-03-06] MEDS: ATENOLOL 25 MG TABLET (FP) PO SCH (10:10)
[2019-03-06 10:23] LABS: HEMATOCRIT 39.5 % (35.4-49); HEMOGLOBIN 13.5 GM/dL (11.7-16.9); MCH 33.4 pg (25.7-33.7); MCHC 34.3 g/dl (32.0-35.9); MEAN CELL VOLUME 97.6 fl (80-96); MEAN PLT VOLUME 8.9 fl (7.5-11.1); PLATELET COUNT 201 K/MM3 (134-434); RBC 4.05 M/mm3 (4.00-5.60); RDW 13.9 % (11.9-15.9); WHITE BLOOD COUNT 3.4 K/mm3 (4.0-10.0)
[2019-03-06 10:34] LABS: ALBUMIN 3.5 g/dl (3.4-5.0); BILIRUBIN,TOTAL 0.9 mg/dL (0.2-1); BLOOD UREA NITROGEN 17.4 mg/dL (7-18); CALCIUM 9.7 mg/dL (8.5-10.1); CREATININE 1.2 mg/dL (0.55-1.3); POTASSIUM 4.2 mmol/L (3.5-5.1); TOT PROT 7.4 g/dl (6.4-8.2)
[2019-03-06] MEDS: LIDOCAINE 5% TOPICAL PATCH TP SCH (12:26)
--- NOTE | 2019-03-06 15:15 | EKG ---
Test Reason : Blood Pressure : / mmHG Vent. Rate : 056 BPM Atrial Rate : 056 BPM P-R Int : 180 ms QRS Dur : 090 ms QT Int : 432 ms P-R-T Axes : 069 -30 -06 degrees QTc Int : 416 ms SINUS BRADYCARDIA LEFT AXIS DEVIATION ABNORMAL ECG WHEN COMPARED WITH ECG OF 01-OCT-2017 20:40, NO SIGNIFICANT CHANGE WAS FOUND Confirmed by CLARICE KIMBLE MD ([id number]) on 03/06/2019 3:15:06 PM Referred By: Confirmed By:CLARICE KIMBLE MD
[2019-03-06] MEDS: risperiDONE 2 MG TABLET PO SCH (22:25)
[2019-03-06] MEDS: ATORVASTATIN CA 20 MG TABLET (FP) PO SCH (22:25)
[2019-03-06] MEDS: LIDOCAINE PATCH REMOVAL MC SCH (22:25)
[2019-03-06] MEDS: THIAMINE HCL 100 MG TABLET (FP) PO SCH (22:25)
[2019-03-06] MEDS: BENZTROPINE MESYLATE 1 MG TABLET PO SCH (22:26)
[2019-03-07] MEDS: metFORMIN HCL 500 MG TABLET (FP) PO SCH ×2 (06:29→17:30)
[2019-03-07] MEDS: chlordiazePOXIDE 5 MG CAPSULE PO SCH ×3 (06:29→22:24)
[2019-03-07] MEDS: NICOTINE POLACRILEX 4 MG GUM BUC PRN ×5 (06:30→22:26)
[2019-03-07] MEDS: LIDOCAINE 5% TOPICAL PATCH TP SCH (10:42)
[2019-03-07] MEDS: PRENATAL VITAMINS W/ FOLIC ACID TABLET (FP) PO SCH (10:42)
[2019-03-07] MEDS: ATENOLOL 25 MG TABLET (FP) PO SCH (10:42)
[2019-03-07] MEDS: amLODIPine BESYLATE 10 MG TABLET (FP) PO SCH (10:42)
[2019-03-07] MEDS: ASPIRIN COATED 81 MG TABLET.EC PO SCH (10:42)
[2019-03-07] MEDS: HYDROCHLOROTHIAZIDE 25 MG TABLET (FP) PO SCH (10:42)
--- NOTE | 2019-03-07 13:36 | PN ---
[facility] CIWA - CIWA Score Nausea/Vomitin-No Nausea/No Vomiting Muscle Tremors: 3 Anxiety: 2 Agitation: 3 Paroxysmal Sweats: 2 Orientation: 0-Oriented Tacttile Disturbances: 0-None Auditory Disturbances: 0-None Visual Disturbances: 0-None Headache: 0-None Present CIWA-Ar Total Score: 10 S Progress Note (SOAP) Subjective: interrupted sleep restless body aches Objective: 03/07/19 13:35 Vital Signs Temperature 96.6 F L 03/07/19 09:47 Pulse Rate 58 L 03/07/19 09:47 Respiratory Rate 18 03/07/19 09:47 Blood Pressure 151/76 03/07/19 09:47 O2 Sat by Pulse Oximetry (%) Laboratory Tests 03/05/19 03/06/19 03/06/19 19:08 05:34 08:00 WBC 3.4 L RBC 4.05 Hgb 13.5 Hct 39.5 MCV 97.6 H MCH 33.4 MCHC 34.3 RDW 13.9 Plt Count 201 MPV 8.9 Sodium Potassium Chloride Carbon Dioxide Anion Gap BUN Creatinine Est GFR (CKD-EPI)AfAm Est GFR (CKD-EPI)NonAf POC Glucometer 111 109 Random Glucose Calcium Total Bilirubin AST ALT Alkaline Phosphatase Total Protein Albumin RPR Titer 03/06/19 03/06/19 03/06/19 08:00 08:00 16:24 WBC RBC Hgb Hct MCV MCH MCHC RDW Plt Count MPV Sodium 141 Potassium 4.2 Chloride 105 Carbon Dioxide 31 Anion Gap 5 L BUN 17.4 Creatinine 1.2 Est GFR (CKD-EPI)AfAm 75.19 Est GFR (CKD-EPI)NonAf 64.87 POC Glucometer 114 Random Glucose 129 H Calcium 9.7 Total Bilirubin 0.9 AST 16 ALT 21 Alkaline Phosphatase 74 Total Protein 7.4 Albumin 3.5 RPR Titer Nonreactive 03/07/19 06:27 WBC RBC Hgb Hct MCV MCH MCHC RDW Plt Count MPV Sodium Potassium Chloride Carbon Dioxide Anion Gap BUN Creatinine Est GFR (CKD-EPI)AfAm Est GFR (CKD-EPI)NonAf POC Glucometer 112 Random Glucose Calcium Total Bilirubin AST ALT Alkaline Phosphatase Total Protein Albumin RPR Titer aaox3 lying in bed no acute distress Assessment: 03/07/19 13:36 withdrawals Plan: continue detox increase fluids trazadone 50mg qhs
[2019-03-07] MEDS: risperiDONE 2 MG TABLET PO SCH (22:24)
[2019-03-07] MEDS: ATORVASTATIN CA 20 MG TABLET (FP) PO SCH (22:24)
[2019-03-07] MEDS: THIAMINE HCL 100 MG TABLET (FP) PO SCH (22:24)
[2019-03-07] MEDS: traZODone HCL 50 MG TABLET (FP) PO SCH (22:24)
[2019-03-07] MEDS: BENZTROPINE MESYLATE 1 MG TABLET PO SCH (22:24)
[2019-03-07] MEDS: LIDOCAINE PATCH REMOVAL MC SCH (23:04)
[2019-03-08] MEDS ORDERED: chlordiazePOXIDE HCL 10 MG CAPSULE PO PRN
[2019-03-08] MEDS: chlordiazePOXIDE HCL 10 MG CAPSULE PO SCH ×3 (05:46→22:23)
[2019-03-08] MEDS: metFORMIN HCL 500 MG TABLET (FP) PO SCH ×2 (07:12→17:13)
[2019-03-08] MEDS ORDERED: IBUPROFEN 600 MG TABLET (FP) PO PRN (09:57)
[2019-03-08] MEDS: ASPIRIN COATED 81 MG TABLET.EC PO SCH (10:31)
[2019-03-08] MEDS: ATENOLOL 25 MG TABLET (FP) PO SCH (10:31)
[2019-03-08] MEDS: amLODIPine BESYLATE 10 MG TABLET (FP) PO SCH (10:31)
[2019-03-08] MEDS: HYDROCHLOROTHIAZIDE 25 MG TABLET (FP) PO SCH (10:31)
[2019-03-08] MEDS: PRENATAL VITAMINS W/ FOLIC ACID TABLET (FP) PO SCH (10:31)
[2019-03-08] MEDS: LIDOCAINE 5% TOPICAL PATCH TP SCH (10:32)
[2019-03-08] MEDS: NICOTINE POLACRILEX 4 MG GUM BUC PRN ×3 (10:33→22:24)
[2019-03-08] MEDS: AMMONIUM LACTATE 12% LOTION 225 GM BOTTLE TP SCH ×2 (12:00→22:24)
--- NOTE | 2019-03-08 14:48 | PN ---
S CIWA - CIWA Score Nausea/Vomitin-No Nausea/No Vomiting Muscle Tremors: None Anxiety: 0-No Anxiety, at Ease Agitation: 0-Normal Activity Paroxysmal Sweats: No Perspiration Orientation: 0-Oriented Tacttile Disturbances: 0-None Auditory Disturbances: 0-None Visual Disturbances: 0-None Headache: 0-None Present CIWA-Ar Total Score: 0 BHS Progress Note (SOAP) Subjective: Patient denies current Withdrawal / Detox symptoms and reports that he feels well overall at this time. Objective: PATIENT A & O X 3, OBSERVED AMBULATING ON DETOX UNIT UNASSISTED. IN NO ACUTE DISTRESS. 03/08/19 14:46 Vital Signs Temperature 97.5 F L 03/08/19 10:00 Pulse Rate 56 L 03/08/19 10:00 Respiratory Rate 16 03/08/19 10:00 Blood Pressure 142/77 03/08/19 10:00 O2 Sat by Pulse Oximetry (%) Laboratory Tests 03/05/19 03/06/19 03/06/19 19:08 05:34 08:00 WBC 3.4 L RBC 4.05 Hgb 13.5 Hct 39.5 MCV 97.6 H MCH 33.4 MCHC 34.3 RDW 13.9 Plt Count 201 MPV 8.9 Sodium Potassium Chloride Carbon Dioxide Anion Gap BUN Creatinine Est GFR (CKD-EPI)AfAm Est GFR (CKD-EPI)NonAf POC Glucometer 111 109 Random Glucose Calcium Total Bilirubin AST ALT Alkaline Phosphatase Total Protein Albumin RPR Titer 03/06/19 03/06/19 03/06/19 08:00 08:00 16:24 WBC RBC Hgb Hct MCV MCH MCHC RDW Plt Count MPV Sodium 141 Potassium 4.2 Chloride 105 Carbon Dioxide 31 Anion Gap 5 L BUN 17.4 Creatinine 1.2 Est GFR (CKD-EPI)AfAm 75.19 Est GFR (CKD-EPI)NonAf 64.87 POC Glucometer 114 Random Glucose 129 H Calcium 9.7 Total Bilirubin 0.9 AST 16 ALT 21 Alkaline Phosphatase 74 Total Protein 7.4 Albumin 3.5 RPR Titer Nonreactive 03/07/19 03/07/19 03/08/19 06:27 16:23 05:48 WBC RBC Hgb Hct MCV MCH MCHC RDW Plt Count MPV Sodium Potassium Chloride Carbon Dioxide Anion Gap BUN Creatinine Est GFR (CKD-EPI)AfAm Est GFR (CKD-EPI)NonAf POC Glucometer 112 110 117 Random Glucose Calcium Total Bilirubin AST ALT Alkaline Phosphatase Total Protein Albumin RPR Titer LABS NOTED Assessment: 03/08/19 14:46 WITHDRAWAL SYMPTOMS. Plan: CONTINUE DETOX. PATIENT SCHEDULED FOR D/C FROM DETOX UNIT TOMORROW.
[2019-03-08] MEDS: BENZTROPINE MESYLATE 1 MG TABLET PO SCH (22:23)
[2019-03-08] MEDS: traZODone HCL 50 MG TABLET (FP) PO SCH (22:24)
[2019-03-08] MEDS: risperiDONE 2 MG TABLET PO SCH (22:24)
[2019-03-08] MEDS: ATORVASTATIN CA 20 MG TABLET (FP) PO SCH (22:24)
[2019-03-08] MEDS: LIDOCAINE PATCH REMOVAL MC SCH (22:24)
[2019-03-08] MEDS: THIAMINE HCL 100 MG TABLET (FP) PO SCH (22:24)
[2019-03-09] MEDS ORDERED: chlordiazePOXIDE HCL 10 MG CAPSULE PO ONE (05:00)
[2019-03-09] MEDS: NICOTINE POLACRILEX 4 MG GUM BUC PRN ×2 (05:21→10:25)
[2019-03-09] MEDS: metFORMIN HCL 500 MG TABLET (FP) PO SCH (06:13)
[2019-03-09 09:51] VITALS: BP 157/73; PULSE 63; TEMP 96.4
[2019-03-09] MEDS: ASPIRIN COATED 81 MG TABLET.EC PO SCH (10:22)
[2019-03-09] MEDS: PRENATAL VITAMINS W/ FOLIC ACID TABLET (FP) PO SCH (10:23)
[2019-03-09] MEDS: LIDOCAINE 5% TOPICAL PATCH TP SCH (10:23)
[2019-03-09] MEDS: HYDROCHLOROTHIAZIDE 25 MG TABLET (FP) PO SCH (10:23)
[2019-03-09] MEDS: amLODIPine BESYLATE 10 MG TABLET (FP) PO SCH (10:23)
[2019-03-09] MEDS: ATENOLOL 25 MG TABLET (FP) PO SCH (10:23)
[2019-03-09] MEDS: AMMONIUM LACTATE 12% LOTION 225 GM BOTTLE TP SCH (10:24)
--- NOTE | 2019-03-09 12:09 | DS ---
[facility] Detox Discharge Summary Admission Date: 03/05/19 Discharge Date: 03/09/19 - History Present History: Alcohol Dependence, Cannabis Dependence, Cocaine Dependence Additional Comments: Patient completed detox successfully and requesting inpatient rehab if bed available. Patient is stable for discharge. Patient instructed to follow up with PCP within 1 week. Pertinent Past History: DM HTN - Physical Exam Results Vital Signs: Vital Signs Temperature 96.4 F L 03/09/19 09:51 Pulse Rate 63 03/09/19 09:51 Respiratory Rate 18 03/09/19 09:51 Blood Pressure 157/73 03/09/19 09:51 O2 Sat by Pulse Oximetry (%) Pertinent Admission Physical Exam Findings: Withdrawal sxs Laboratory Tests 03/05/19 03/06/19 03/06/19 19:08 05:34 08:00 WBC 3.4 L RBC 4.05 Hgb 13.5 Hct 39.5 MCV 97.6 H MCH 33.4 MCHC 34.3 RDW 13.9 Plt Count 201 MPV 8.9 Sodium Potassium Chloride Carbon Dioxide Anion Gap BUN Creatinine Est GFR (CKD-EPI)AfAm Est GFR (CKD-EPI)NonAf POC Glucometer 111 109 Random Glucose Calcium Total Bilirubin AST ALT Alkaline Phosphatase Total Protein Albumin RPR Titer 03/06/19 03/06/19 03/06/19 08:00 08:00 16:24 WBC RBC Hgb Hct MCV MCH MCHC RDW Plt Count MPV Sodium 141 Potassium 4.2 Chloride 105 Carbon Dioxide 31 Anion Gap 5 L BUN 17.4 Creatinine 1.2 Est GFR (CKD-EPI)AfAm 75.19 Est GFR (CKD-EPI)NonAf 64.87 POC Glucometer 114 Random Glucose 129 H Calcium 9.7 Total Bilirubin 0.9 AST 16 ALT 21 Alkaline Phosphatase 74 Total Protein 7.4 Albumin 3.5 RPR Titer Nonreactive 03/07/19 03/07/19 03/08/19 06:27 16:23 05:48 WBC RBC Hgb Hct MCV MCH MCHC RDW Plt Count MPV Sodium Potassium Chloride Carbon Dioxide Anion Gap BUN Creatinine Est GFR (CKD-EPI)AfAm Est GFR (CKD-EPI)NonAf POC Glucometer 112 110 117 Random Glucose Calcium Total Bilirubin AST ALT Alkaline Phosphatase Total Protein Albumin RPR Titer 03/08/19 03/09/19 16:22 06:07 WBC RBC Hgb Hct MCV MCH MCHC RDW Plt Count MPV Sodium Potassium Chloride Carbon Dioxide Anion Gap BUN Creatinine Est GFR (CKD-EPI)AfAm Est GFR (CKD-EPI)NonAf POC Glucometer 83 116 Random Glucose Calcium Total Bilirubin AST ALT Alkaline Phosphatase Total Protein Albumin RPR Titer Labs reviewed: hyperglycemia secondary to DM, on medication - Treatment Hospital Course: Detox Protocol Followed, Detoxed Safely, Responded well, Discharged Condition Good - Medication Discharge Medications: Ambulatory Orders Amlodipine Besylate [Norvasc -] 10 mg PO DAILY #14 tab 10/26/17 Aspirin Coated [Ecotrin -] 81 mg PO DAILY #14 tab 10/26/17 Atenolol [Tenormin -] 25 mg PO DAILY #14 tablet 10/26/17 Atorvastatin Ca [Lipitor] 20 mg PO HS #14 tablet 10/26/17 Hydrochlorothiazide 25 mg PO DAILY 14 Days tablet 10/26/17 [place]-3 Acid Ethyl Esters [Lovaza -] 1 gm PO DAILY #14 cap 10/26/17 metFORMIN HCL [Glucophage -] 500 mg PO BIDAC #30 tablet 10/26/17 Bupropion HCl [Wellbutrin Xl -] 300 mg PO DAILY #30 tab.sr.24h 10/29/17 Ibuprofen 400 mg PO TID PRN 09/02/18 Risperidone [Risperdal] 6 mg PO DAILY 09/02/18 Citalopram Hydrobromide [Celexa -] 20 mg PO DAILY 12/05/18 Risperidone [Risperdal -] 3 mg PO HS 12/05/18 Risperidone [Risperdal] 1 mg PO DAILY 12/05/18 Bupropion HCl [Wellbutrin Xl -] 300 mg PO DAILY #30 tab.sr.24h 12/18/18 Citalopram Hydrobromide [Celexa -] 20 mg PO DAILY #30 tablet 12/18/18 Risperidone [Risperdal -] 6 mg PO HS #60 tablet 12/18/18 - Diagnosis (1) Alcohol dependence with uncomplicated withdrawal Current Visit: Yes Status: Acute (2) Cocaine dependence Current Visit: Yes Status: Acute Qualifiers: Substance use status: uncomplicated Qualified Code(s): F14.20 - Cocaine dependence, uncomplicated (3) Cannabis dependence, uncomplicated Current Visit: Yes Status: Acute (4) DM2 (diabetes mellitus, type 2) Current Visit: Yes Status: Chronic Qualifiers: Diabetes mellitus [facility] insulin use: unspecified rn long term care insulin use status Diabetes mellitus complication status: without complication Qualified Code(s): E11.9 - Type 2 diabetes mellitus without complications (5) Essential hypertension Current Visit: Yes Status: Chronic (6) History of depression Current Visit: Yes Status: Chronic (7) Hypercholesteremia Current Visit: Yes Status: Chronic (8) Nicotine dependence Current Visit: Yes Status: Chronic Qualifiers: Nicotine product type: cigarettes Substance use status: uncomplicated Qualified Code(s): F17.210 - Nicotine dependence, cigarettes, uncomplicated - AMA Did Patient Leave Against Medical Advice: No (Patient requesting inpatient rehab )
== END 2019-03-09 13:30 | disposition home or self-care (01) | DRG 774 ==
LOC: YASAS 17:02 → Y6N 18:59
PROVIDERS: ADMIT Allergy & Immunology; ATTEND Allergy & Immunology
PROC: HZ2ZZZZ Detoxification Services for Substance Abuse Treatment (ICD-10-PCS; principal; 2019-03-05)
DX: F10.230 Alcohol dependence with withdrawal, uncomplicated (principal); F14.20 Cocaine dependence, uncomplicated; F12.20 Cannabis dependence, uncomplicated; F17.210 Nicotine dependence, cigarettes, uncomplicated; F25.9 Schizoaffective disorder, unspecified; F43.10 Post-traumatic stress disorder, unspecified; E11.9 Type 2 diabetes mellitus without complications; I10 Essential (primary) hypertension; E78.5 Hyperlipidemia, unspecified; R00.1 Bradycardia, unspecified; K08.9 Disorder of teeth and supporting structures, unspecified; M19.90 Unspecified osteoarthritis, unspecified site; M54.5 Low back pain; G89.29 Other chronic pain; Z79.82 Long term (current) use of aspirin; Z86.11 Personal history of tuberculosis; Z88.8 Allergy status to other drugs, medicaments and biological substances
CPT/HCPCS: 36415; 80053; 82962; 85027; 86593; 93005; 93010

== ENCOUNTER 2019-07-22 12:13 | Inpatient (IN) | payer OTHER ==
[2019-07-22] MEDS ORDERED: guaiFENesin 200 MG/10 ML 10 ML UNIT-DOSE CUPS PO PRN (12:23)
[2019-07-22] MEDS ORDERED: NICOTINE POLACRILEX 2 MG GUM BC PRN (12:23)
[2019-07-22] MEDS ORDERED: P-EPHED 60MG/TRIPROLIDI 2.5MG TABLET PO PRN (12:23)
[2019-07-22] MEDS ORDERED: IBUPROFEN 400 MG TABLET (FP) PO PRN (12:23)
[2019-07-22] MEDS ORDERED: ACETAMINOPHEN 325 MG TABLET (FP) PO PRN (12:23)
[2019-07-22] MEDS ORDERED: MAGNESIUM HYDROX 2400MG/30ML ORAL SUSPENSION 30 ML CUP PO PRN (12:23)
[2019-07-22] MEDS ORDERED: MAG HYDROX/AL HYDROX/SIMETH 30 ML UNIT-DOSE CUP PO PRN (12:23)
[2019-07-22] MEDS ORDERED: MAGNESIUM CITRATE 300 ML BOTTLE PO PRN (12:23)
[2019-07-22] MEDS ORDERED: LOPERAMIDE HCL 2 MG CAPSULE PO PRN (12:23)
--- NOTE | 2019-07-22 12:23 | HP ---
[facility] Rehab Assess/Revision - Admission History Admitted to Rehab from: [facility] Date of Admission to Rehab: 07/22/19 - Findings Detox History & Physical reviewed: Yes Concur with findings: Yes Comments/Additional Findings: transferred from detox to rehab admission as per protocol Inpatient Rehab Admission - Rehab Decision to Admit Inpatient rehab admission?: Yes - Initial Determination Are CD services needed?: Yes Free of communicable disease: Yes Not in need of hospitalization: Yes - Rehab Admission Criteria Previous failed treatment: Yes Poor recovery environment: Yes Comorbidities: Yes Lacks judgement: Yes Patient is meeting Inpatient Rehab admission criteria:: Yes
--- NOTE | 2019-07-22 13:12 | CONSULT ---
[facility] Psychiatric Consult - Data Date of interview: 07/22/19 Admission source: 3N Identifying data: Saran is a 64 years old single Black male, unemployed receiving [facility]/[employer] pension, domiciled referred from detox on 06/21/19 for inpatient rehabilitation treatment for alcohol, cocaine and cannabis Substance Abuse History: Reports history of alcohol, cocaine and marijuana use use. Refer to addiction counselor's summary for further information Medical History: Significant for hypertension, dyslipidemia, type 2 diabetes mellitus, angina pectoris, spinal stenosis, lower back pain, arthritis L3-L4, history of prophylactic treatment for TB with INH (2004), right hip replacement for avascular necrosis (2003) and fracture right fibula in 1996. Smokes 10 cigarettes daily Psychiatric History: Patient is known for multiple previous admissions to this facility. Historical narrative remains consistent. He reports onset of psychiatric disturbances in 2003 when he was admitted to [facility] and diagnosed with Schizoaffective Disorder and PTSD. Reports multiple psychiatric admissions to various institutions including to [facility], [facility], [facility], [facility], [facility] in [facility], [facility] and most recently the [facility] from June-July 2017. Reports receiving outpatient psychiatric treatment at [facility] with Dr Evans and he is Risperdal 2 mg/hs, Remeron 7.5 mg/hs, Wellbutrin XL 300 mg/day and Cogentin 0.5 mg/hs. During his recent admission to detox, he was seen by Dr Reagan on 07/19/19 and he was prescribed Wellbutrin XL 150 mg/day, Risperdal 2 mg/hs, Remeron 7.5 mg/hs and Cogentin 0.5 mg/hs. Reportedly he has had several suicide attempts, most recently in January 2017, via deliberate self exposure to oncoming traffic. At present, denies experienicing psychotic, manic or depressive symptoms, S/H ideations. However, reports sleeping poorly. Requests to resume medications Physical/Sexual Abuse/Trauma History: Patient denies history of emotional, sexual or physical abuse as well as DV relationship. 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 Served in [employer], [facility] [employer] [facility] [employer] and [employer] in the . No report of flashbacks or nightmares. Additional Comment: Reports history of multiple previous arrests including 3 felony convictions. Reports being off parole for 8 years Mental Status Exam - Mental Status Exam Alert and Oriented to: Time, Place, Person Cognitive Function: Fair Patient Appearance: Well Groomed Mood: Hopeful, Euthymic Patient Behavior: Cooperative Speech Pattern: Clear Voice Loudness: Normal Thought Process: Intact Thought Disorder: Not Present Hallucinations: Denies Suicidal Ideation: Denies Homicidal Ideation: Denies Insight/Judgement: Poor Sleep: Poorly Appetite: Good Muscle strength/Tone: Normal Gait/Station: Normal Psychiatric Findings - Problem List ([place] 1, 2,3) (1) Schizoaffective disorder Current Visit: No Status: Chronic Qualifiers: Schizoaffective disorder type: depressive Qualified Code(s): F25.1 - Schizoaffective disorder, depressive type Comment: . (2) PTSD (post-traumatic stress disorder) Current Visit: No Status: Chronic Comment: . By history. (3) Substance-induced sleep disorder Current Visit: No Status: Acute (4) Alcohol dependence with uncomplicated withdrawal Current Visit: No Status: Acute Comment: . (5) Cocaine dependence Current Visit: No Status: Acute Qualifiers: Substance use status: uncomplicated Qualified Code(s): F14.20 - Cocaine dependence, uncomplicated Comment: . (6) Nicotine dependence Current Visit: No Status: Chronic Qualifiers: Nicotine product type: cigarettes Substance use status: uncomplicated Qualified Code(s): F17.210 - Nicotine dependence, cigarettes, uncomplicated Comment: . (7) Essential hypertension Current Visit: No Status: Chronic (8) Hypercholesteremia Current Visit: No Status: Chronic (9) DM2 (diabetes mellitus, type 2) Current Visit: No Status: Chronic Qualifiers: Diabetes mellitus terminal operator insulin use: without assisted use Diabetes mellitus complication status: without complication Qualified Code(s): E11.9 - Type 2 diabetes mellitus without complications (10) History of positive PPD Current Visit: No Status: Ruled-out Comment: Last CXR 02/2019 (11) Hx of spinal stenosis Current Visit: No Status: Chronic (12) Arthritis Current Visit: No Status: Chronic (13) Spinal stenosis, lumbosacral region Current Visit: No Status: Resolved - Initial Treatment Plan Initial Treatment Plan: 1) Continue Remeron 7.5 mg po HS, Risperdal 2 mg po HS and Cogentin 0.5 mg po HS. 2) Resume Wellbutrin XL 300 mg po daily. 3) Continue inpatient rehabilitation
--- NOTE | 2019-07-22 13:52 | PN ---
[facility] Progress Note Note: Pt is a 64 y/o male with a hx of RADHA-alcohol,cocaine use admitted to rehab today from [address] [place] [address]. Pt reports he has primary care with [facility] for medical management. PMHx:DM Anemia Back Pain Bradycardia HTN HLD Spinal Stenosis Chronic Back Pain Right foot fx SxHx:Right Hip Replacement-04/2003 @ [facility] r/t avascular necrosis. Vital Signs - 24 hr 07/22/19 07/22/19 07/22/19 12:23 12:24 14:50 Temperature 98.2 F Pulse Rate 58 L Respiratory 18 Rate Blood Pressure 138/73 O2 Sat by Pulse 96 98 Oximetry (%) Alert o x 3 nad oob ambulating with steady gait A:New rehab pt Cont rehab increase po fluids maintain safety
[2019-07-22] MEDS: hydrOXYzine PAMOATE 25 MG CAPSULE (FP) PO SCH ×3 (13:58→21:40)
[2019-07-22] MEDS: metFORMIN HCL 500 MG TABLET (FP) PO SCH (16:32)
[2019-07-22] MEDS: NICOTINE POLACRILEX 4 MG GUM BUC PRN ×2 (16:32→21:42)
[2019-07-22] MEDS: BENZTROPINE MESYLATE 1 MG TABLET PO SCH (21:39)
[2019-07-22] MEDS: MELATONIN 5 MG TABLETS PO SCH (21:39)
[2019-07-22] MEDS: MIRTAZAPINE 15 MG TABLET (FP) PO SCH (21:40)
[2019-07-22] MEDS: risperiDONE 2 MG TABLET PO SCH (21:40)
[2019-07-22] MEDS: ATORVASTATIN CA 20 MG TABLET (FP) PO SCH (21:40)
[2019-07-22] MEDS: THIAMINE HCL 100 MG TABLET (FP) PO SCH (21:40)
[2019-07-22] MEDS: ATENOLOL 25 MG TABLET (FP) PO SCH (22:42)
[2019-07-23] MEDS: NICOTINE POLACRILEX 4 MG GUM BUC PRN ×5 (06:08→21:16)
[2019-07-23] MEDS: metFORMIN HCL 500 MG TABLET (FP) PO SCH ×2 (06:08→17:12)
[2019-07-23] MEDS: hydrOXYzine PAMOATE 25 MG CAPSULE (FP) PO SCH ×5 (06:08→21:13)
[2019-07-23] MEDS ORDERED: NICOTINE 7 MG/24 HOURS TOPICAL PATCH TD SCH ×2 (10:00)
[2019-07-23] MEDS: HYDROCHLOROTHIAZIDE 25 MG TABLET (FP) PO SCH (10:15)
[2019-07-23] MEDS: amLODIPine BESYLATE 10 MG TABLET (FP) PO SCH (10:15)
[2019-07-23] MEDS: ASPIRIN COATED 81 MG TABLET.EC PO SCH (10:15)
[2019-07-23] MEDS: FAMOTIDINE 20 MG TABLET PO SCH ×2 (10:15→21:13)
[2019-07-23] MEDS: OMEGA-3 ACID ETHYL ESTERS (FATTY-ACIDS) 1 GM CAPSULE (FP) PO SCH (10:16)
[2019-07-23] MEDS: PRENATAL VITAMINS W/ FOLIC ACID TABLET (FP) PO SCH (10:16)
[2019-07-23] MEDS: ATENOLOL 25 MG TABLET (FP) PO SCH ×2 (11:12→21:13)
[2019-07-23] MEDS: LIDOCAINE 5% TOPICAL PATCH TP SCH (11:13)
[2019-07-23] MEDS: MELATONIN 5 MG TABLETS PO SCH (21:12)
[2019-07-23] MEDS: risperiDONE 2 MG TABLET PO SCH (21:13)
[2019-07-23] MEDS: THIAMINE HCL 100 MG TABLET (FP) PO SCH (21:13)
[2019-07-23] MEDS: MIRTAZAPINE 15 MG TABLET (FP) PO SCH (21:13)
[2019-07-23] MEDS: ATORVASTATIN CA 20 MG TABLET (FP) PO SCH (21:13)
[2019-07-23] MEDS: BENZTROPINE MESYLATE 1 MG TABLET PO SCH (21:14)
[2019-07-23] MEDS: LIDOCAINE PATCH REMOVAL MC SCH (21:15)
[2019-07-24] MEDS: hydrOXYzine PAMOATE 25 MG CAPSULE (FP) PO SCH ×5 (06:27→21:02)
[2019-07-24] MEDS: NICOTINE POLACRILEX 4 MG GUM BUC PRN ×5 (06:27→21:03)
[2019-07-24] MEDS: metFORMIN HCL 500 MG TABLET (FP) PO SCH ×2 (06:27→16:24)
[2019-07-24] MEDS: amLODIPine BESYLATE 10 MG TABLET (FP) PO SCH (10:09)
[2019-07-24] MEDS: ASPIRIN COATED 81 MG TABLET.EC PO SCH (10:09)
[2019-07-24] MEDS: FAMOTIDINE 20 MG TABLET PO SCH ×2 (10:09→21:02)
[2019-07-24] MEDS: ATENOLOL 25 MG TABLET (FP) PO SCH ×2 (10:10→21:03)
[2019-07-24] MEDS: PRENATAL VITAMINS W/ FOLIC ACID TABLET (FP) PO SCH (10:10)
[2019-07-24] MEDS: LIDOCAINE 5% TOPICAL PATCH TP SCH (10:10)
[2019-07-24] MEDS: HYDROCHLOROTHIAZIDE 25 MG TABLET (FP) PO SCH (10:10)
[2019-07-24] MEDS: OMEGA-3 ACID ETHYL ESTERS (FATTY-ACIDS) 1 GM CAPSULE (FP) PO SCH (10:10)
--- NOTE | 2019-07-24 12:24 | PN ---
S Progress Note Note: Pt c/o frequent urination since from detox. pt was detoxed from alcohol with Librium tapered regimen. Pt denies previous episodes of frequent urination. He denies pain, burning, blood in urine,fever or discharge. Urine analysis done in detox on 07/21/19 was completely wnl. Hx of HTN-on Hydrochlorothiazide,Atenolol,Amlodipine; DM-on Metformin; GERD. Vital Signs - 24 hr 07/23/19 07/23/19 07/24/19 15:19 20:17 00:30 Temperature Pulse Rate Respiratory 16 Rate Blood Pressure O2 Sat by Pulse 97 98 Oximetry (%) 07/24/19 07/24/19 03:30 06:34 Temperature 97.9 F Pulse Rate 60 Respiratory 16 18 Rate Blood Pressure 145/67 O2 Sat by Pulse 96 Oximetry (%) Alert o x 3 nad oob ambulating with steady gait A:Urinary frequency Will Repeat UA today.
[2019-07-24 15:12] LABS: EPI CELLS 2 /uL (0-25.1); HYALINE CASTS 0 /uL (0-3.1); PH,URINE >= 9.0 (5.0-8.0); URINE APPEARANCE CLEAR; URINE BACTERIA 20 /uL (0-1359); URINE BILIRUBIN NEGATIVE (NEGATIVE); URINE COLOR YELLOW; URINE GLUCOSE (UA) NEGATIVE (NEGATIVE); URINE KETONE NEGATIVE (NEGATIVE); URINE LEUK ESTERASE NEGATIVE (NEGATIVE); URINE NITRITE NEGATIVE (NEGATIVE); URINE PROTEIN NEGATIVE (NEGATIVE); URINE RBC 1 /uL (0-23.9); URINE UROBILINOGEN 0.2 mg/dL (0.2-1.0); URINE WBC 1 /uL (0-25.8)
[2019-07-24] MEDS: THIAMINE HCL 100 MG TABLET (FP) PO SCH (21:02)
[2019-07-24] MEDS: ATORVASTATIN CA 20 MG TABLET (FP) PO SCH (21:02)
[2019-07-24] MEDS: risperiDONE 2 MG TABLET PO SCH (21:02)
[2019-07-24] MEDS: MIRTAZAPINE 15 MG TABLET (FP) PO SCH (21:02)
[2019-07-24] MEDS: MELATONIN 5 MG TABLETS PO SCH (21:02)
[2019-07-24] MEDS: BENZTROPINE MESYLATE 1 MG TABLET PO SCH (21:03)
[2019-07-24] MEDS: LIDOCAINE PATCH REMOVAL MC SCH (21:04)
[2019-07-25] MEDS: metFORMIN HCL 500 MG TABLET (FP) PO SCH ×2 (06:05→16:30)
[2019-07-25] MEDS: hydrOXYzine PAMOATE 25 MG CAPSULE (FP) PO SCH ×5 (06:05→21:05)
[2019-07-25] MEDS: NICOTINE POLACRILEX 4 MG GUM BUC PRN ×5 (06:06→21:03)
[2019-07-25] MEDS ORDERED: COLLOIDAL OATMEAL 1 BAR EACH TP PRN (09:33)
[2019-07-25] MEDS ORDERED: HYDROCORTISONE 1% TOPICAL CREAM 30 GM TUBE TP PRN (09:46)
--- NOTE | 2019-07-25 09:46 | PN ---
[facility] Progress Note Note: Pt requesting Aveeno soap for bathing and c/o itchy skin with current hospital soap. Reports hx Eczema. Vital Signs - 24 hr 07/24/19 07/24/19 07/24/19 10:00 14:55 20:06 Temperature Pulse Rate 62 Respiratory Rate Blood Pressure 141/77 O2 Sat by Pulse 97 96 Oximetry (%) 07/24/19 07/25/19 07/25/19 20:47 00:30 07:19 Temperature 96.9 F L Pulse Rate 64 58 L Respiratory 18 18 Rate Blood Pressure 125/65 136/74 O2 Sat by Pulse Oximetry (%) 07/25/19 07:40 Temperature Pulse Rate Respiratory Rate Blood Pressure O2 Sat by Pulse 93 L Oximetry (%) Laboratory Tests 07/22/19 07/23/19 07/23/19 16:29 06:07 17:09 POC Glucometer 131 139 98 Urine Color Urine Appearance Urine pH Ur Specific Shannon Urine Protein Urine Glucose (UA) Urine Ketones Urine Blood Urine Nitrite Urine Bilirubin Urine Urobilinogen Ur Leukocyte Esterase Urine WBC (Auto) Urine RBC (Auto) Urine Casts (Auto) U Epithel Cells (Auto) Urine Bacteria (Auto) 07/24/19 07/24/19 07/24/19 06:26 12:00 16:22 POC Glucometer 82 72 Urine Color Yellow Urine Appearance Clear Urine pH >= 9.0 H D Ur Specific Shannon 1.009 L Urine Protein Negative Urine Glucose (UA) Negative Urine Ketones Negative Urine Blood Negative Urine Nitrite Negative Urine Bilirubin Negative Urine Urobilinogen 0.2 Ur Leukocyte Esterase Negative Urine WBC (Auto) 1 Urine RBC (Auto) 1 Urine Casts (Auto) 0 U Epithel Cells (Auto) 2 Urine Bacteria (Auto) 07/25/19 06:04 POC Glucometer 83 Urine Color Urine Appearance Urine pH Ur Specific Shannon Urine Protein Urine Glucose (UA) Urine Ketones Urine Blood Urine Nitrite Urine Bilirubin Urine Urobilinogen Ur Leukocyte Esterase Urine WBC (Auto) Urine RBC (Auto) Urine Casts (Auto) U Epithel Cells (Auto) Urine Bacteria (Auto) Alert o x 3 nad oob ambulating with steady gait Skin:Areas of dark leathery skin patches on both inner elbows. Repeat UA= grossly wnl A:Atopic Dermatitis P:Hydrocortizone cream 1% apply bid Aveeno soap for daily hygiene UC today r/o pathology
[2019-07-25] MEDS: PRENATAL VITAMINS W/ FOLIC ACID TABLET (FP) PO SCH (10:13)
[2019-07-25] MEDS: OMEGA-3 ACID ETHYL ESTERS (FATTY-ACIDS) 1 GM CAPSULE (FP) PO SCH (10:13)
[2019-07-25] MEDS: ASPIRIN COATED 81 MG TABLET.EC PO SCH (10:14)
[2019-07-25] MEDS: FAMOTIDINE 20 MG TABLET PO SCH ×2 (10:14→21:03)
[2019-07-25] MEDS: LIDOCAINE 5% TOPICAL PATCH TP SCH (10:17)
[2019-07-25] MEDS: ATENOLOL 25 MG TABLET (FP) PO SCH ×2 (11:00→21:02)
[2019-07-25] MEDS: HYDROCHLOROTHIAZIDE 25 MG TABLET (FP) PO SCH (11:00)
[2019-07-25] MEDS: amLODIPine BESYLATE 10 MG TABLET (FP) PO SCH (11:00)
[2019-07-25] MEDS: BENZTROPINE MESYLATE 1 MG TABLET PO SCH (21:02)
[2019-07-25] MEDS: THIAMINE HCL 100 MG TABLET (FP) PO SCH (21:03)
[2019-07-25] MEDS: MIRTAZAPINE 15 MG TABLET (FP) PO SCH (21:03)
[2019-07-25] MEDS: MELATONIN 5 MG TABLETS PO SCH (21:03)
[2019-07-25] MEDS: risperiDONE 2 MG TABLET PO SCH (21:03)
[2019-07-25] MEDS: ATORVASTATIN CA 20 MG TABLET (FP) PO SCH (21:03)
[2019-07-25] MEDS: LIDOCAINE PATCH REMOVAL MC SCH (21:05)
[2019-07-26] MEDS: metFORMIN HCL 500 MG TABLET (FP) PO SCH ×2 (06:15→16:46)
[2019-07-26] MEDS: hydrOXYzine PAMOATE 25 MG CAPSULE (FP) PO SCH ×5 (06:15→21:20)
[2019-07-26] MEDS: NICOTINE POLACRILEX 4 MG GUM BUC PRN ×5 (06:17→21:18)
[2019-07-26] MEDS: FAMOTIDINE 20 MG TABLET PO SCH ×2 (09:05→21:15)
[2019-07-26] MEDS: LIDOCAINE 5% TOPICAL PATCH TP SCH (09:05)
[2019-07-26] MEDS: PRENATAL VITAMINS W/ FOLIC ACID TABLET (FP) PO SCH (09:05)
[2019-07-26] MEDS: ASPIRIN COATED 81 MG TABLET.EC PO SCH (09:05)
[2019-07-26] MEDS: amLODIPine BESYLATE 10 MG TABLET (FP) PO SCH (09:05)
[2019-07-26] MEDS: OMEGA-3 ACID ETHYL ESTERS (FATTY-ACIDS) 1 GM CAPSULE (FP) PO SCH (09:05)
[2019-07-26] MEDS: ATENOLOL 25 MG TABLET (FP) PO SCH ×2 (09:06→21:15)
[2019-07-26] MEDS: HYDROCHLOROTHIAZIDE 25 MG TABLET (FP) PO SCH (09:08)
[2019-07-26] MEDS: METHOCARBAMOL 500 MG TABLET PO PRN ×2 (11:49→21:15)
[2019-07-26] MEDS: IBUPROFEN 400 MG TABLET (FP) PO PRN (19:12)
[2019-07-26] MEDS: BENZTROPINE MESYLATE 1 MG TABLET PO SCH (21:15)
[2019-07-26] MEDS: MELATONIN 5 MG TABLETS PO SCH (21:15)
[2019-07-26] MEDS: ATORVASTATIN CA 20 MG TABLET (FP) PO SCH (21:15)
[2019-07-26] MEDS: MIRTAZAPINE 15 MG TABLET (FP) PO SCH (21:15)
[2019-07-26] MEDS: THIAMINE HCL 100 MG TABLET (FP) PO SCH (21:15)
[2019-07-26] MEDS: risperiDONE 2 MG TABLET PO SCH (21:15)
[2019-07-26] MEDS: LIDOCAINE PATCH REMOVAL MC SCH (21:16)
[2019-07-27] MEDS: hydrOXYzine PAMOATE 25 MG CAPSULE (FP) PO SCH ×5 (06:07→22:28)
[2019-07-27] MEDS: metFORMIN HCL 500 MG TABLET (FP) PO SCH ×2 (06:07→16:52)
[2019-07-27] MEDS: NICOTINE POLACRILEX 4 MG GUM BUC PRN ×4 (06:08→21:29)
[2019-07-27] MEDS: ASPIRIN COATED 81 MG TABLET.EC PO SCH (09:32)
[2019-07-27] MEDS: IBUPROFEN 400 MG TABLET (FP) PO PRN ×2 (09:32→21:28)
[2019-07-27] MEDS: HYDROCHLOROTHIAZIDE 25 MG TABLET (FP) PO SCH (09:32)
[2019-07-27] MEDS: METHOCARBAMOL 500 MG TABLET PO PRN ×2 (09:32→21:26)
[2019-07-27] MEDS: PRENATAL VITAMINS W/ FOLIC ACID TABLET (FP) PO SCH (09:32)
[2019-07-27] MEDS: FAMOTIDINE 20 MG TABLET PO SCH ×2 (09:32→22:28)
[2019-07-27] MEDS: amLODIPine BESYLATE 10 MG TABLET (FP) PO SCH (09:32)
[2019-07-27] MEDS: OMEGA-3 ACID ETHYL ESTERS (FATTY-ACIDS) 1 GM CAPSULE (FP) PO SCH (09:32)
[2019-07-27] MEDS: LIDOCAINE 5% TOPICAL PATCH TP SCH (09:32)
[2019-07-27] MEDS: ATENOLOL 25 MG TABLET (FP) PO SCH ×2 (09:33→21:26)
[2019-07-27] MEDS: THIAMINE HCL 100 MG TABLET (FP) PO SCH (21:26)
[2019-07-27] MEDS: ATORVASTATIN CA 20 MG TABLET (FP) PO SCH (21:26)
[2019-07-27] MEDS: BENZTROPINE MESYLATE 1 MG TABLET PO SCH (21:26)
[2019-07-27] MEDS: MELATONIN 5 MG TABLETS PO SCH (21:26)
[2019-07-27] MEDS: risperiDONE 2 MG TABLET PO SCH (21:26)
[2019-07-27] MEDS: MIRTAZAPINE 15 MG TABLET (FP) PO SCH (21:27)
[2019-07-27] MEDS: LIDOCAINE PATCH REMOVAL MC SCH (21:56)
[2019-07-28] MEDS: METHOCARBAMOL 500 MG TABLET PO PRN ×3 (06:33→21:17)
[2019-07-28] MEDS: metFORMIN HCL 500 MG TABLET (FP) PO SCH ×2 (06:33→16:52)
[2019-07-28] MEDS: NICOTINE POLACRILEX 4 MG GUM BUC PRN ×5 (06:34→21:19)
[2019-07-28] MEDS: IBUPROFEN 400 MG TABLET (FP) PO PRN (06:34)
[2019-07-28] MEDS: hydrOXYzine PAMOATE 25 MG CAPSULE (FP) PO SCH ×5 (07:38→21:24)
[2019-07-28] MEDS: ASPIRIN COATED 81 MG TABLET.EC PO SCH (09:15)
[2019-07-28] MEDS: LIDOCAINE 5% TOPICAL PATCH TP SCH (09:16)
[2019-07-28] MEDS: FAMOTIDINE 20 MG TABLET PO SCH ×2 (09:16→21:16)
[2019-07-28] MEDS: amLODIPine BESYLATE 10 MG TABLET (FP) PO SCH (09:16)
[2019-07-28] MEDS: OMEGA-3 ACID ETHYL ESTERS (FATTY-ACIDS) 1 GM CAPSULE (FP) PO SCH (09:16)
[2019-07-28] MEDS: HYDROCHLOROTHIAZIDE 25 MG TABLET (FP) PO SCH (09:16)
[2019-07-28] MEDS: ATENOLOL 25 MG TABLET (FP) PO SCH ×2 (09:17→21:16)
[2019-07-28] MEDS: PRENATAL VITAMINS W/ FOLIC ACID TABLET (FP) PO SCH (09:17)
[2019-07-28] MEDS: THIAMINE HCL 100 MG TABLET (FP) PO SCH (21:16)
[2019-07-28] MEDS: risperiDONE 2 MG TABLET PO SCH (21:17)
[2019-07-28] MEDS: MIRTAZAPINE 15 MG TABLET (FP) PO SCH (21:17)
[2019-07-28] MEDS: BENZTROPINE MESYLATE 1 MG TABLET PO SCH (21:17)
[2019-07-28] MEDS: LIDOCAINE PATCH REMOVAL MC SCH (21:18)
[2019-07-28] MEDS: METHYL SALICYLATE/MENTHOL OINT 30 GM TUBE TP SCH (21:18)
[2019-07-28] MEDS: ATORVASTATIN CA 20 MG TABLET (FP) PO SCH (21:18)
[2019-07-28] MEDS: MELATONIN 5 MG TABLETS PO SCH (21:24)
[2019-07-28] MEDS ORDERED: METHYL SALICYLATE/MENTHOL OINT 30 GM TUBE TP SCH (22:00)
[2019-07-29] MEDS: metFORMIN HCL 500 MG TABLET (FP) PO SCH ×2 (06:24→16:48)
[2019-07-29] MEDS: METHOCARBAMOL 500 MG TABLET PO PRN ×2 (06:25→16:48)
[2019-07-29] MEDS: IBUPROFEN 400 MG TABLET (FP) PO PRN ×2 (06:25→16:49)
[2019-07-29] MEDS: hydrOXYzine PAMOATE 25 MG CAPSULE (FP) PO SCH (06:25)
[2019-07-29] MEDS: NICOTINE POLACRILEX 4 MG GUM BUC PRN ×3 (06:26→21:29)
[2019-07-29] MEDS ORDERED: hydrOXYzine PAMOATE 25 MG CAPSULE (FP) PO PRN (08:58)
[2019-07-29] MEDS: PRENATAL VITAMINS W/ FOLIC ACID TABLET (FP) PO SCH (09:08)
[2019-07-29] MEDS: amLODIPine BESYLATE 10 MG TABLET (FP) PO SCH (09:09)
[2019-07-29] MEDS: FAMOTIDINE 20 MG TABLET PO SCH ×2 (09:09→21:29)
[2019-07-29] MEDS: ATENOLOL 25 MG TABLET (FP) PO SCH ×2 (09:09→21:27)
[2019-07-29] MEDS: OMEGA-3 ACID ETHYL ESTERS (FATTY-ACIDS) 1 GM CAPSULE (FP) PO SCH (09:09)
[2019-07-29] MEDS: ASPIRIN COATED 81 MG TABLET.EC PO SCH (09:09)
[2019-07-29] MEDS: LIDOCAINE 5% TOPICAL PATCH TP SCH (09:11)
[2019-07-29] MEDS: HYDROCHLOROTHIAZIDE 25 MG TABLET (FP) PO SCH (09:11)
--- NOTE | 2019-07-29 15:39 | PN ---
[facility] Progress Note Note: pt [facility] to [facility] from [address] [place] [address] per management request. Vital Signs - 24 hr 07/28/19 07/29/19 07/29/19 19:40 00:30 03:30 Temperature 97.3 F L Pulse Rate 59 L Respiratory 18 16 16 Rate Blood Pressure 115/76 O2 Sat by Pulse 97 Oximetry (%) 07/29/19 07/29/19 07/29/19 06:13 10:00 14:26 Temperature 97.3 F L Pulse Rate 61 68 Respiratory 18 Rate Blood Pressure 149/89 135/67 O2 Sat by Pulse 99 95 Oximetry (%) 07/29/19 15:34 Temperature 98 F Pulse Rate 68 Respiratory 18 Rate Blood Pressure 134/75 O2 Sat by Pulse Oximetry (%) Alert o x 3 nad oob ambulating with steady gait. Rehab pt continue rehab on .
[2019-07-29] MEDS: risperiDONE 2 MG TABLET PO SCH (21:27)
[2019-07-29] MEDS: MELATONIN 5 MG TABLETS PO SCH (21:27)
[2019-07-29] MEDS: MIRTAZAPINE 15 MG TABLET (FP) PO SCH (21:27)
[2019-07-29] MEDS: BENZTROPINE MESYLATE 1 MG TABLET PO SCH (21:27)
[2019-07-29] MEDS: ATORVASTATIN CA 20 MG TABLET (FP) PO SCH (21:27)
[2019-07-29] MEDS: THIAMINE HCL 100 MG TABLET (FP) PO SCH (21:27)
[2019-07-29] MEDS: METHYL SALICYLATE/MENTHOL OINT 30 GM TUBE TP SCH (21:29)
[2019-07-29] MEDS: LIDOCAINE PATCH REMOVAL MC SCH (21:29)
[2019-07-30] MEDS: NICOTINE POLACRILEX 4 MG GUM BUC PRN ×5 (05:51→21:38)
[2019-07-30] MEDS: metFORMIN HCL 500 MG TABLET (FP) PO SCH ×2 (07:05→16:33)
[2019-07-30] MEDS: HYDROCHLOROTHIAZIDE 25 MG TABLET (FP) PO SCH (09:55)
[2019-07-30] MEDS: ASPIRIN COATED 81 MG TABLET.EC PO SCH (09:55)
[2019-07-30] MEDS: METHOCARBAMOL 500 MG TABLET PO PRN ×2 (09:55→21:36)
[2019-07-30] MEDS: PRENATAL VITAMINS W/ FOLIC ACID TABLET (FP) PO SCH (09:55)
[2019-07-30] MEDS: FAMOTIDINE 20 MG TABLET PO SCH ×2 (09:55→21:36)
[2019-07-30] MEDS: amLODIPine BESYLATE 10 MG TABLET (FP) PO SCH (09:56)
[2019-07-30] MEDS: OMEGA-3 ACID ETHYL ESTERS (FATTY-ACIDS) 1 GM CAPSULE (FP) PO SCH (09:56)
[2019-07-30] MEDS: LIDOCAINE 5% TOPICAL PATCH TP SCH (09:56)
[2019-07-30] MEDS: ATENOLOL 25 MG TABLET (FP) PO SCH ×2 (09:56→21:35)
[2019-07-30] MEDS: IBUPROFEN 400 MG TABLET (FP) PO PRN ×2 (09:57→21:37)
[2019-07-30] MEDS ORDERED: PT OWN MED DRAWER 7, Y5N ONE (19:01)
[2019-07-30] MEDS: risperiDONE 2 MG TABLET PO SCH (21:35)
[2019-07-30] MEDS: LIDOCAINE PATCH REMOVAL MC SCH (21:35)
[2019-07-30] MEDS: METHYL SALICYLATE/MENTHOL OINT 30 GM TUBE TP SCH (21:35)
[2019-07-30] MEDS: ATORVASTATIN CA 20 MG TABLET (FP) PO SCH (21:35)
[2019-07-30] MEDS: BENZTROPINE MESYLATE 1 MG TABLET PO SCH (21:36)
[2019-07-30] MEDS: MELATONIN 5 MG TABLETS PO SCH (21:36)
[2019-07-30] MEDS: THIAMINE HCL 100 MG TABLET (FP) PO SCH (21:36)
[2019-07-30] MEDS: MIRTAZAPINE 15 MG TABLET (FP) PO SCH (21:36)
[2019-07-31] MEDS: metFORMIN HCL 500 MG TABLET (FP) PO SCH ×2 (05:59→16:29)
[2019-07-31] MEDS: NICOTINE POLACRILEX 4 MG GUM BUC PRN ×5 (05:59→21:30)
[2019-07-31] MEDS ORDERED: PT OWN MED DRAWER 7, Y5N ONE ×2 (08:43→18:51)
[2019-07-31] MEDS: PRENATAL VITAMINS W/ FOLIC ACID TABLET (FP) PO SCH (10:03)
[2019-07-31] MEDS: METHOCARBAMOL 500 MG TABLET PO PRN ×2 (10:03→21:27)
[2019-07-31] MEDS: OMEGA-3 ACID ETHYL ESTERS (FATTY-ACIDS) 1 GM CAPSULE (FP) PO SCH (10:03)
[2019-07-31] MEDS: ASPIRIN COATED 81 MG TABLET.EC PO SCH (10:03)
[2019-07-31] MEDS: HYDROCHLOROTHIAZIDE 25 MG TABLET (FP) PO SCH (10:03)
[2019-07-31] MEDS: amLODIPine BESYLATE 10 MG TABLET (FP) PO SCH (10:04)
[2019-07-31] MEDS: LIDOCAINE 5% TOPICAL PATCH TP SCH (10:04)
[2019-07-31] MEDS: FAMOTIDINE 20 MG TABLET PO SCH ×2 (10:04→21:27)
[2019-07-31] MEDS: ATENOLOL 25 MG TABLET (FP) PO SCH ×2 (10:04→21:27)
[2019-07-31] MEDS: IBUPROFEN 400 MG TABLET (FP) PO PRN ×2 (10:05→21:28)
[2019-07-31] MEDS: THIAMINE HCL 100 MG TABLET (FP) PO SCH (21:27)
[2019-07-31] MEDS: BENZTROPINE MESYLATE 1 MG TABLET PO SCH (21:27)
[2019-07-31] MEDS: MIRTAZAPINE 15 MG TABLET (FP) PO SCH (21:27)
[2019-07-31] MEDS: risperiDONE 2 MG TABLET PO SCH (21:27)
[2019-07-31] MEDS: MELATONIN 5 MG TABLETS PO SCH (21:27)
[2019-07-31] MEDS: ATORVASTATIN CA 20 MG TABLET (FP) PO SCH (21:27)
[2019-07-31] MEDS: LIDOCAINE PATCH REMOVAL MC SCH (21:27)
[2019-07-31] MEDS: METHYL SALICYLATE/MENTHOL OINT 30 GM TUBE TP SCH (21:28)
[2019-08-01] MEDS: NICOTINE POLACRILEX 4 MG GUM BUC PRN ×4 (05:58→21:49)
[2019-08-01] MEDS: metFORMIN HCL 500 MG TABLET (FP) PO SCH ×2 (07:08→16:56)
[2019-08-01] MEDS ORDERED: PT OWN MED DRAWER 7, Y5N ONE ×2 (09:01→18:50)
[2019-08-01] MEDS: METHOCARBAMOL 500 MG TABLET PO PRN (09:58)
[2019-08-01] MEDS: ATENOLOL 25 MG TABLET (FP) PO SCH ×2 (09:58→21:51)
[2019-08-01] MEDS: amLODIPine BESYLATE 10 MG TABLET (FP) PO SCH (09:58)
[2019-08-01] MEDS: HYDROCHLOROTHIAZIDE 25 MG TABLET (FP) PO SCH (09:58)
[2019-08-01] MEDS: PRENATAL VITAMINS W/ FOLIC ACID TABLET (FP) PO SCH (09:58)
[2019-08-01] MEDS: LIDOCAINE 5% TOPICAL PATCH TP SCH (09:58)
[2019-08-01] MEDS: ASPIRIN COATED 81 MG TABLET.EC PO SCH (09:58)
[2019-08-01] MEDS: FAMOTIDINE 20 MG TABLET PO SCH ×2 (09:59→21:48)
[2019-08-01] MEDS: IBUPROFEN 400 MG TABLET (FP) PO PRN (09:59)
[2019-08-01] MEDS: OMEGA-3 ACID ETHYL ESTERS (FATTY-ACIDS) 1 GM CAPSULE (FP) PO SCH (09:59)
[2019-08-01] MEDS: ATORVASTATIN CA 20 MG TABLET (FP) PO SCH (21:47)
[2019-08-01] MEDS: MELATONIN 5 MG TABLETS PO SCH (21:47)
[2019-08-01] MEDS: risperiDONE 2 MG TABLET PO SCH (21:47)
[2019-08-01] MEDS: BENZTROPINE MESYLATE 1 MG TABLET PO SCH (21:48)
[2019-08-01] MEDS: LIDOCAINE PATCH REMOVAL MC SCH (21:48)
[2019-08-01] MEDS: THIAMINE HCL 100 MG TABLET (FP) PO SCH (21:48)
[2019-08-01] MEDS: MIRTAZAPINE 15 MG TABLET (FP) PO SCH (21:48)
[2019-08-01] MEDS: METHYL SALICYLATE/MENTHOL OINT 30 GM TUBE TP SCH (21:50)
[2019-08-02] MEDS: NICOTINE POLACRILEX 4 MG GUM BUC PRN ×4 (05:55→21:48)
[2019-08-02] MEDS: metFORMIN HCL 500 MG TABLET (FP) PO SCH ×2 (07:07→16:46)
[2019-08-02] MEDS ORDERED: PT OWN MED DRAWER 7, Y5N ONE (08:57)
[2019-08-02] MEDS: LIDOCAINE 5% TOPICAL PATCH TP SCH (09:56)
[2019-08-02] MEDS: METHOCARBAMOL 500 MG TABLET PO PRN (09:56)
[2019-08-02] MEDS: ASPIRIN COATED 81 MG TABLET.EC PO SCH (09:56)
[2019-08-02] MEDS: PRENATAL VITAMINS W/ FOLIC ACID TABLET (FP) PO SCH (09:56)
[2019-08-02] MEDS: HYDROCHLOROTHIAZIDE 25 MG TABLET (FP) PO SCH (09:56)
[2019-08-02] MEDS: amLODIPine BESYLATE 10 MG TABLET (FP) PO SCH (09:57)
[2019-08-02] MEDS: FAMOTIDINE 20 MG TABLET PO SCH ×2 (09:57→21:45)
[2019-08-02] MEDS: OMEGA-3 ACID ETHYL ESTERS (FATTY-ACIDS) 1 GM CAPSULE (FP) PO SCH (09:57)
[2019-08-02] MEDS: ATENOLOL 25 MG TABLET (FP) PO SCH ×2 (09:58→21:47)
[2019-08-02] MEDS: METHYL SALICYLATE/MENTHOL OINT 30 GM TUBE TP SCH (21:44)
[2019-08-02] MEDS: BENZTROPINE MESYLATE 1 MG TABLET PO SCH (21:44)
[2019-08-02] MEDS: ATORVASTATIN CA 20 MG TABLET (FP) PO SCH (21:44)
[2019-08-02] MEDS: MELATONIN 5 MG TABLETS PO SCH (21:45)
[2019-08-02] MEDS: risperiDONE 2 MG TABLET PO SCH (21:45)
[2019-08-02] MEDS: MIRTAZAPINE 15 MG TABLET (FP) PO SCH (21:45)
[2019-08-02] MEDS: LIDOCAINE PATCH REMOVAL MC SCH (21:46)
[2019-08-02] MEDS: THIAMINE HCL 100 MG TABLET (FP) PO SCH (21:46)
[2019-08-03] MEDS: NICOTINE POLACRILEX 4 MG GUM BUC PRN ×5 (05:49→21:27)
[2019-08-03] MEDS: metFORMIN HCL 500 MG TABLET (FP) PO SCH ×2 (07:15→16:44)
[2019-08-03] MEDS ORDERED: PT OWN MED DRAWER 7, Y5N ONE (09:12)
[2019-08-03] MEDS: PRENATAL VITAMINS W/ FOLIC ACID TABLET (FP) PO SCH (09:49)
[2019-08-03] MEDS: ASPIRIN COATED 81 MG TABLET.EC PO SCH (09:50)
[2019-08-03] MEDS: HYDROCHLOROTHIAZIDE 25 MG TABLET (FP) PO SCH (09:50)
[2019-08-03] MEDS: OMEGA-3 ACID ETHYL ESTERS (FATTY-ACIDS) 1 GM CAPSULE (FP) PO SCH (09:50)
[2019-08-03] MEDS: FAMOTIDINE 20 MG TABLET PO SCH ×2 (09:50→21:25)
[2019-08-03] MEDS: LIDOCAINE 5% TOPICAL PATCH TP SCH (09:50)
[2019-08-03] MEDS: amLODIPine BESYLATE 10 MG TABLET (FP) PO SCH (09:50)
[2019-08-03] MEDS: ATENOLOL 25 MG TABLET (FP) PO SCH ×2 (09:51→21:26)
[2019-08-03] MEDS: MIRTAZAPINE 15 MG TABLET (FP) PO SCH (21:25)
[2019-08-03] MEDS: risperiDONE 2 MG TABLET PO SCH (21:25)
[2019-08-03] MEDS: MELATONIN 5 MG TABLETS PO SCH (21:25)
[2019-08-03] MEDS: ATORVASTATIN CA 20 MG TABLET (FP) PO SCH (21:25)
[2019-08-03] MEDS: THIAMINE HCL 100 MG TABLET (FP) PO SCH (21:25)
[2019-08-03] MEDS: BENZTROPINE MESYLATE 1 MG TABLET PO SCH (21:26)
[2019-08-03] MEDS: LIDOCAINE PATCH REMOVAL MC SCH (21:27)
[2019-08-03] MEDS: METHYL SALICYLATE/MENTHOL OINT 30 GM TUBE TP SCH (21:27)
[2019-08-04] MEDS: metFORMIN HCL 500 MG TABLET (FP) PO SCH ×2 (06:23→16:32)
[2019-08-04] MEDS: NICOTINE POLACRILEX 4 MG GUM BUC PRN ×5 (06:24→21:31)
[2019-08-04] MEDS ORDERED: PT OWN MED DRAWER 7, Y5N ONE ×2 (08:55→19:01)
[2019-08-04] MEDS: PRENATAL VITAMINS W/ FOLIC ACID TABLET (FP) PO SCH (09:44)
[2019-08-04] MEDS: ATENOLOL 25 MG TABLET (FP) PO SCH ×2 (09:45→21:30)
[2019-08-04] MEDS: HYDROCHLOROTHIAZIDE 25 MG TABLET (FP) PO SCH (09:45)
[2019-08-04] MEDS: ASPIRIN COATED 81 MG TABLET.EC PO SCH (09:45)
[2019-08-04] MEDS: LIDOCAINE 5% TOPICAL PATCH TP SCH (09:45)
[2019-08-04] MEDS: IBUPROFEN 400 MG TABLET (FP) PO PRN (09:45)
[2019-08-04] MEDS: amLODIPine BESYLATE 10 MG TABLET (FP) PO SCH (09:45)
[2019-08-04] MEDS: OMEGA-3 ACID ETHYL ESTERS (FATTY-ACIDS) 1 GM CAPSULE (FP) PO SCH (09:45)
[2019-08-04] MEDS: METHOCARBAMOL 500 MG TABLET PO PRN (09:46)
[2019-08-04] MEDS: FAMOTIDINE 20 MG TABLET PO SCH ×2 (10:58→21:30)
[2019-08-04] MEDS: MELATONIN 5 MG TABLETS PO SCH (21:30)
[2019-08-04] MEDS: ATORVASTATIN CA 20 MG TABLET (FP) PO SCH (21:30)
[2019-08-04] MEDS: LIDOCAINE PATCH REMOVAL MC SCH (21:30)
[2019-08-04] MEDS: MIRTAZAPINE 15 MG TABLET (FP) PO SCH (21:30)
[2019-08-04] MEDS: BENZTROPINE MESYLATE 1 MG TABLET PO SCH (21:30)
[2019-08-04] MEDS: THIAMINE HCL 100 MG TABLET (FP) PO SCH (21:30)
[2019-08-04] MEDS: risperiDONE 2 MG TABLET PO SCH (21:30)
[2019-08-04] MEDS: METHYL SALICYLATE/MENTHOL OINT 30 GM TUBE TP SCH (21:31)
[2019-08-05] MEDS: NICOTINE POLACRILEX 4 MG GUM BUC PRN ×4 (05:58→21:28)
[2019-08-05] MEDS: metFORMIN HCL 500 MG TABLET (FP) PO SCH ×2 (07:04→16:40)
[2019-08-05] MEDS ORDERED: PT OWN MED DRAWER 7, Y5N ONE (08:45)
[2019-08-05] MEDS: LIDOCAINE 5% TOPICAL PATCH TP SCH (09:36)
[2019-08-05] MEDS: ASPIRIN COATED 81 MG TABLET.EC PO SCH (09:37)
[2019-08-05] MEDS: METHOCARBAMOL 500 MG TABLET PO PRN (09:37)
[2019-08-05] MEDS: amLODIPine BESYLATE 10 MG TABLET (FP) PO SCH (09:37)
[2019-08-05] MEDS: OMEGA-3 ACID ETHYL ESTERS (FATTY-ACIDS) 1 GM CAPSULE (FP) PO SCH (09:37)
[2019-08-05] MEDS: FAMOTIDINE 20 MG TABLET PO SCH ×2 (09:37→21:27)
[2019-08-05] MEDS: ATENOLOL 25 MG TABLET (FP) PO SCH ×2 (09:37→21:27)
[2019-08-05] MEDS: PRENATAL VITAMINS W/ FOLIC ACID TABLET (FP) PO SCH (09:37)
[2019-08-05] MEDS: HYDROCHLOROTHIAZIDE 25 MG TABLET (FP) PO SCH (09:37)
[2019-08-05] MEDS: LIDOCAINE PATCH REMOVAL MC SCH (21:27)
[2019-08-05] MEDS: BENZTROPINE MESYLATE 1 MG TABLET PO SCH (21:27)
[2019-08-05] MEDS: risperiDONE 2 MG TABLET PO SCH (21:27)
[2019-08-05] MEDS: ATORVASTATIN CA 20 MG TABLET (FP) PO SCH (21:27)
[2019-08-05] MEDS: MIRTAZAPINE 15 MG TABLET (FP) PO SCH (21:27)
[2019-08-05] MEDS: THIAMINE HCL 100 MG TABLET (FP) PO SCH (21:27)
[2019-08-05] MEDS: MELATONIN 5 MG TABLETS PO SCH (21:27)
[2019-08-05] MEDS: METHYL SALICYLATE/MENTHOL OINT 30 GM TUBE TP SCH (21:28)
[2019-08-06] MEDS: NICOTINE POLACRILEX 4 MG GUM BUC PRN ×6 (05:56→21:58)
[2019-08-06] MEDS: metFORMIN HCL 500 MG TABLET (FP) PO SCH ×2 (07:09→16:39)
[2019-08-06] MEDS ORDERED: PT OWN MED DRAWER 7, Y5N ONE (08:56)
[2019-08-06] MEDS: IBUPROFEN 400 MG TABLET (FP) PO PRN (09:50)
[2019-08-06] MEDS: amLODIPine BESYLATE 10 MG TABLET (FP) PO SCH (09:51)
[2019-08-06] MEDS: FAMOTIDINE 20 MG TABLET PO SCH ×2 (09:51→21:57)
[2019-08-06] MEDS: HYDROCHLOROTHIAZIDE 25 MG TABLET (FP) PO SCH (09:51)
[2019-08-06] MEDS: ATENOLOL 25 MG TABLET (FP) PO SCH ×2 (09:51→21:57)
[2019-08-06] MEDS: METHOCARBAMOL 500 MG TABLET PO PRN (09:51)
[2019-08-06] MEDS: ASPIRIN COATED 81 MG TABLET.EC PO SCH (09:51)
[2019-08-06] MEDS: LIDOCAINE 5% TOPICAL PATCH TP SCH (09:52)
[2019-08-06] MEDS: OMEGA-3 ACID ETHYL ESTERS (FATTY-ACIDS) 1 GM CAPSULE (FP) PO SCH (09:52)
[2019-08-06] MEDS: PRENATAL VITAMINS W/ FOLIC ACID TABLET (FP) PO SCH (09:52)
[2019-08-06] MEDS: LIDOCAINE PATCH REMOVAL MC SCH (21:57)
[2019-08-06] MEDS: BENZTROPINE MESYLATE 1 MG TABLET PO SCH (21:57)
[2019-08-06] MEDS: risperiDONE 2 MG TABLET PO SCH (21:57)
[2019-08-06] MEDS: MIRTAZAPINE 15 MG TABLET (FP) PO SCH (21:57)
[2019-08-06] MEDS: ATORVASTATIN CA 20 MG TABLET (FP) PO SCH (21:57)
[2019-08-06] MEDS: THIAMINE HCL 100 MG TABLET (FP) PO SCH (21:57)
[2019-08-06] MEDS: MELATONIN 5 MG TABLETS PO SCH (21:57)
[2019-08-06] MEDS: METHYL SALICYLATE/MENTHOL OINT 30 GM TUBE TP SCH (21:58)
[2019-08-07] MEDS: metFORMIN HCL 500 MG TABLET (FP) PO SCH ×2 (06:28→16:39)
[2019-08-07] MEDS: NICOTINE POLACRILEX 4 MG GUM BUC PRN ×5 (06:29→21:17)
[2019-08-07] MEDS ORDERED: PT OWN MED DRAWER 7, Y5N ONE (08:46)
[2019-08-07] MEDS: OMEGA-3 ACID ETHYL ESTERS (FATTY-ACIDS) 1 GM CAPSULE (FP) PO SCH (09:38)
[2019-08-07] MEDS: METHOCARBAMOL 500 MG TABLET PO PRN (09:38)
[2019-08-07] MEDS: HYDROCHLOROTHIAZIDE 25 MG TABLET (FP) PO SCH (09:39)
[2019-08-07] MEDS: ATENOLOL 25 MG TABLET (FP) PO SCH ×2 (09:39→21:20)
[2019-08-07] MEDS: amLODIPine BESYLATE 10 MG TABLET (FP) PO SCH (09:39)
[2019-08-07] MEDS: ASPIRIN COATED 81 MG TABLET.EC PO SCH (09:39)
[2019-08-07] MEDS: FAMOTIDINE 20 MG TABLET PO SCH ×2 (09:39→21:19)
[2019-08-07] MEDS: PRENATAL VITAMINS W/ FOLIC ACID TABLET (FP) PO SCH (09:39)
[2019-08-07] MEDS: LIDOCAINE 5% TOPICAL PATCH TP SCH (09:40)
[2019-08-07] MEDS: BENZTROPINE MESYLATE 1 MG TABLET PO SCH (21:18)
[2019-08-07] MEDS: risperiDONE 2 MG TABLET PO SCH (21:18)
[2019-08-07] MEDS: MIRTAZAPINE 15 MG TABLET (FP) PO SCH (21:18)
[2019-08-07] MEDS: ATORVASTATIN CA 20 MG TABLET (FP) PO SCH (21:18)
[2019-08-07] MEDS: MELATONIN 5 MG TABLETS PO SCH (21:18)
[2019-08-07] MEDS: THIAMINE HCL 100 MG TABLET (FP) PO SCH (21:18)
[2019-08-07] MEDS: METHYL SALICYLATE/MENTHOL OINT 30 GM TUBE TP SCH (21:20)
[2019-08-07] MEDS: LIDOCAINE PATCH REMOVAL MC SCH (21:22)
[2019-08-08] MEDS: metFORMIN HCL 500 MG TABLET (FP) PO SCH ×2 (06:04→16:34)
[2019-08-08] MEDS ORDERED: PT OWN MED DRAWER 7, Y5N ONE ×3 (08:45→18:47)
[2019-08-08] MEDS: amLODIPine BESYLATE 10 MG TABLET (FP) PO SCH (09:44)
[2019-08-08] MEDS: OMEGA-3 ACID ETHYL ESTERS (FATTY-ACIDS) 1 GM CAPSULE (FP) PO SCH (09:44)
[2019-08-08] MEDS: PRENATAL VITAMINS W/ FOLIC ACID TABLET (FP) PO SCH (09:44)
[2019-08-08] MEDS: ATENOLOL 25 MG TABLET (FP) PO SCH ×2 (09:44→21:46)
[2019-08-08] MEDS: ASPIRIN COATED 81 MG TABLET.EC PO SCH (09:44)
[2019-08-08] MEDS: HYDROCHLOROTHIAZIDE 25 MG TABLET (FP) PO SCH (09:44)
[2019-08-08] MEDS: FAMOTIDINE 20 MG TABLET PO SCH ×2 (09:44→21:46)
[2019-08-08] MEDS: NICOTINE POLACRILEX 4 MG GUM BUC PRN ×5 (09:46→21:48)
[2019-08-08] MEDS: LIDOCAINE 5% TOPICAL PATCH TP SCH (10:21)
[2019-08-08] MEDS: MIRTAZAPINE 15 MG TABLET (FP) PO SCH (21:46)
[2019-08-08] MEDS: LIDOCAINE PATCH REMOVAL MC SCH (21:46)
[2019-08-08] MEDS: ATORVASTATIN CA 20 MG TABLET (FP) PO SCH (21:46)
[2019-08-08] MEDS: MELATONIN 5 MG TABLETS PO SCH (21:46)
[2019-08-08] MEDS: BENZTROPINE MESYLATE 1 MG TABLET PO SCH (21:46)
[2019-08-08] MEDS: THIAMINE HCL 100 MG TABLET (FP) PO SCH (21:46)
[2019-08-08] MEDS: risperiDONE 2 MG TABLET PO SCH (21:46)
[2019-08-08] MEDS: METHYL SALICYLATE/MENTHOL OINT 30 GM TUBE TP SCH (21:47)
[2019-08-09] MEDS: metFORMIN HCL 500 MG TABLET (FP) PO SCH ×2 (06:00→16:26)
[2019-08-09] MEDS: NICOTINE POLACRILEX 4 MG GUM BUC PRN ×4 (06:02→21:28)
[2019-08-09] MEDS ORDERED: PT OWN MED DRAWER 7, Y5N ONE (08:33)
[2019-08-09] MEDS: LIDOCAINE 5% TOPICAL PATCH TP SCH (09:34)
[2019-08-09] MEDS: OMEGA-3 ACID ETHYL ESTERS (FATTY-ACIDS) 1 GM CAPSULE (FP) PO SCH (09:34)
[2019-08-09] MEDS: PRENATAL VITAMINS W/ FOLIC ACID TABLET (FP) PO SCH (09:34)
[2019-08-09] MEDS: amLODIPine BESYLATE 10 MG TABLET (FP) PO SCH (09:34)
[2019-08-09] MEDS: HYDROCHLOROTHIAZIDE 25 MG TABLET (FP) PO SCH (09:35)
[2019-08-09] MEDS: ASPIRIN COATED 81 MG TABLET.EC PO SCH (09:36)
[2019-08-09] MEDS: FAMOTIDINE 20 MG TABLET PO SCH ×2 (09:36→21:27)
[2019-08-09] MEDS: ATENOLOL 25 MG TABLET (FP) PO SCH ×2 (09:36→21:27)
[2019-08-09] MEDS: IBUPROFEN 400 MG TABLET (FP) PO PRN (09:38)
[2019-08-09] MEDS: METHOCARBAMOL 500 MG TABLET PO PRN (09:38)
[2019-08-09] MEDS: LIDOCAINE PATCH REMOVAL MC SCH (21:27)
[2019-08-09] MEDS: BENZTROPINE MESYLATE 1 MG TABLET PO SCH (21:27)
[2019-08-09] MEDS: risperiDONE 2 MG TABLET PO SCH (21:27)
[2019-08-09] MEDS: MELATONIN 5 MG TABLETS PO SCH (21:27)
[2019-08-09] MEDS: ATORVASTATIN CA 20 MG TABLET (FP) PO SCH (21:27)
[2019-08-09] MEDS: THIAMINE HCL 100 MG TABLET (FP) PO SCH (21:27)
[2019-08-09] MEDS: MIRTAZAPINE 15 MG TABLET (FP) PO SCH (21:27)
[2019-08-09] MEDS: METHYL SALICYLATE/MENTHOL OINT 30 GM TUBE TP SCH (21:28)
[2019-08-10] MEDS: NICOTINE POLACRILEX 4 MG GUM BUC PRN ×5 (06:10→22:03)
[2019-08-10] MEDS: metFORMIN HCL 500 MG TABLET (FP) PO SCH ×2 (06:10→16:32)
[2019-08-10] MEDS ORDERED: PT OWN MED DRAWER 7, Y5N ONE (08:30)
[2019-08-10] MEDS: OMEGA-3 ACID ETHYL ESTERS (FATTY-ACIDS) 1 GM CAPSULE (FP) PO SCH (09:46)
[2019-08-10] MEDS: amLODIPine BESYLATE 10 MG TABLET (FP) PO SCH (09:46)
[2019-08-10] MEDS: HYDROCHLOROTHIAZIDE 25 MG TABLET (FP) PO SCH (09:46)
[2019-08-10] MEDS: ATENOLOL 25 MG TABLET (FP) PO SCH ×2 (09:46→22:02)
[2019-08-10] MEDS: ASPIRIN COATED 81 MG TABLET.EC PO SCH (09:46)
[2019-08-10] MEDS: PRENATAL VITAMINS W/ FOLIC ACID TABLET (FP) PO SCH (09:46)
[2019-08-10] MEDS: FAMOTIDINE 20 MG TABLET PO SCH ×2 (09:46→22:02)
[2019-08-10] MEDS: LIDOCAINE 5% TOPICAL PATCH TP SCH (09:47)
[2019-08-10] MEDS: LIDOCAINE PATCH REMOVAL MC SCH (22:02)
[2019-08-10] MEDS: THIAMINE HCL 100 MG TABLET (FP) PO SCH (22:02)
[2019-08-10] MEDS: BENZTROPINE MESYLATE 1 MG TABLET PO SCH (22:02)
[2019-08-10] MEDS: MIRTAZAPINE 15 MG TABLET (FP) PO SCH (22:02)
[2019-08-10] MEDS: MELATONIN 5 MG TABLETS PO SCH (22:02)
[2019-08-10] MEDS: risperiDONE 2 MG TABLET PO SCH (22:02)
[2019-08-10] MEDS: ATORVASTATIN CA 20 MG TABLET (FP) PO SCH (22:02)
[2019-08-10] MEDS: METHYL SALICYLATE/MENTHOL OINT 30 GM TUBE TP SCH (22:03)
[2019-08-11] MEDS: NICOTINE POLACRILEX 4 MG GUM BUC PRN ×4 (05:50→21:13)
[2019-08-11] MEDS: metFORMIN HCL 500 MG TABLET (FP) PO SCH ×2 (06:56→17:03)
[2019-08-11] MEDS: HYDROCHLOROTHIAZIDE 25 MG TABLET (FP) PO SCH (10:19)
[2019-08-11] MEDS: amLODIPine BESYLATE 10 MG TABLET (FP) PO SCH (10:19)
[2019-08-11] MEDS: ATENOLOL 25 MG TABLET (FP) PO SCH ×2 (10:19→21:09)
[2019-08-11] MEDS: OMEGA-3 ACID ETHYL ESTERS (FATTY-ACIDS) 1 GM CAPSULE (FP) PO SCH (10:20)
[2019-08-11] MEDS: FAMOTIDINE 20 MG TABLET PO SCH ×2 (10:20→21:11)
[2019-08-11] MEDS: PRENATAL VITAMINS W/ FOLIC ACID TABLET (FP) PO SCH (10:20)
[2019-08-11] MEDS: ASPIRIN COATED 81 MG TABLET.EC PO SCH (10:20)
[2019-08-11] MEDS: LIDOCAINE 5% TOPICAL PATCH TP SCH (10:21)
[2019-08-11] MEDS: IBUPROFEN 400 MG TABLET (FP) PO PRN ×2 (10:22→21:08)
[2019-08-11] MEDS: METHOCARBAMOL 500 MG TABLET PO PRN ×2 (10:22→21:07)
[2019-08-11] MEDS: BENZTROPINE MESYLATE 1 MG TABLET PO SCH (21:07)
[2019-08-11] MEDS: METHYL SALICYLATE/MENTHOL OINT 30 GM TUBE TP SCH (21:07)
[2019-08-11] MEDS: risperiDONE 2 MG TABLET PO SCH (21:07)
[2019-08-11] MEDS: LIDOCAINE PATCH REMOVAL MC SCH (21:08)
[2019-08-11] MEDS: THIAMINE HCL 100 MG TABLET (FP) PO SCH (21:09)
[2019-08-11] MEDS: MIRTAZAPINE 15 MG TABLET (FP) PO SCH (21:10)
[2019-08-11] MEDS: ATORVASTATIN CA 20 MG TABLET (FP) PO SCH (21:10)
[2019-08-11] MEDS: MELATONIN 5 MG TABLETS PO SCH (22:07)
[2019-08-12] MEDS: NICOTINE POLACRILEX 4 MG GUM BUC PRN ×5 (05:52→21:49)
[2019-08-12] MEDS: metFORMIN HCL 500 MG TABLET (FP) PO SCH ×2 (06:07→16:31)
[2019-08-12] MEDS: PRENATAL VITAMINS W/ FOLIC ACID TABLET (FP) PO SCH (09:49)
[2019-08-12] MEDS: LIDOCAINE 5% TOPICAL PATCH TP SCH (09:49)
[2019-08-12] MEDS: ASPIRIN COATED 81 MG TABLET.EC PO SCH (09:49)
[2019-08-12] MEDS: amLODIPine BESYLATE 10 MG TABLET (FP) PO SCH (09:49)
[2019-08-12] MEDS: METHOCARBAMOL 500 MG TABLET PO PRN (09:49)
[2019-08-12] MEDS: HYDROCHLOROTHIAZIDE 25 MG TABLET (FP) PO SCH (09:49)
[2019-08-12] MEDS: OMEGA-3 ACID ETHYL ESTERS (FATTY-ACIDS) 1 GM CAPSULE (FP) PO SCH (09:49)
[2019-08-12] MEDS: ATENOLOL 25 MG TABLET (FP) PO SCH ×2 (09:50→21:48)
[2019-08-12] MEDS: FAMOTIDINE 20 MG TABLET PO SCH ×2 (09:50→21:48)
[2019-08-12] MEDS: IBUPROFEN 400 MG TABLET (FP) PO PRN (09:51)
[2019-08-12] MEDS: METHYL SALICYLATE/MENTHOL OINT 30 GM TUBE TP SCH (21:48)
[2019-08-12] MEDS: LIDOCAINE PATCH REMOVAL MC SCH (21:48)
[2019-08-12] MEDS: THIAMINE HCL 100 MG TABLET (FP) PO SCH (21:48)
[2019-08-12] MEDS: risperiDONE 2 MG TABLET PO SCH (21:48)
[2019-08-12] MEDS: ATORVASTATIN CA 20 MG TABLET (FP) PO SCH (21:48)
[2019-08-12] MEDS: BENZTROPINE MESYLATE 1 MG TABLET PO SCH (21:48)
[2019-08-12] MEDS: MELATONIN 5 MG TABLETS PO SCH (21:48)
[2019-08-12] MEDS: MIRTAZAPINE 15 MG TABLET (FP) PO SCH (21:48)
[2019-08-13] MEDS: NICOTINE POLACRILEX 4 MG GUM BUC PRN ×5 (05:52→21:19)
[2019-08-13] MEDS: metFORMIN HCL 500 MG TABLET (FP) PO SCH ×2 (06:12→16:26)
[2019-08-13] MEDS: LIDOCAINE 5% TOPICAL PATCH TP SCH (09:43)
[2019-08-13] MEDS: PRENATAL VITAMINS W/ FOLIC ACID TABLET (FP) PO SCH (09:43)
[2019-08-13] MEDS: FAMOTIDINE 20 MG TABLET PO SCH ×2 (09:44→21:19)
[2019-08-13] MEDS: amLODIPine BESYLATE 10 MG TABLET (FP) PO SCH (09:44)
[2019-08-13] MEDS: HYDROCHLOROTHIAZIDE 25 MG TABLET (FP) PO SCH (09:44)
[2019-08-13] MEDS: ASPIRIN COATED 81 MG TABLET.EC PO SCH (09:44)
[2019-08-13] MEDS: ATENOLOL 25 MG TABLET (FP) PO SCH ×2 (09:44→21:19)
[2019-08-13] MEDS: OMEGA-3 ACID ETHYL ESTERS (FATTY-ACIDS) 1 GM CAPSULE (FP) PO SCH (09:45)
[2019-08-13] MEDS: risperiDONE 2 MG TABLET PO SCH (21:19)
[2019-08-13] MEDS: THIAMINE HCL 100 MG TABLET (FP) PO SCH (21:19)
[2019-08-13] MEDS: BENZTROPINE MESYLATE 1 MG TABLET PO SCH (21:19)
[2019-08-13] MEDS: ATORVASTATIN CA 20 MG TABLET (FP) PO SCH (21:19)
[2019-08-13] MEDS: MELATONIN 5 MG TABLETS PO SCH (21:19)
[2019-08-13] MEDS: LIDOCAINE PATCH REMOVAL MC SCH (21:19)
[2019-08-13] MEDS: MIRTAZAPINE 15 MG TABLET (FP) PO SCH (21:19)
[2019-08-13] MEDS: METHYL SALICYLATE/MENTHOL OINT 30 GM TUBE TP SCH (21:20)
[2019-08-14] MEDS: NICOTINE POLACRILEX 4 MG GUM BUC PRN ×2 (06:00→09:15)
[2019-08-14] MEDS: metFORMIN HCL 500 MG TABLET (FP) PO SCH (06:04)
--- NOTE | 2019-08-14 08:32 | PN ---
[facility] Progress Note Note: Patient is scheduled for discharge today. Sripts for 30 days supply of medications(Remeron 7.5 mg/hs, Risperdal 2 mg/hs, Cogentin 0.5 mg/hs) are electronically transmitted to [email or web address], [address] [place] [id number]
[2019-08-14] MEDS ORDERED: PT OWN MED DRAWER 7, Y5N ONE (08:35)
[2019-08-14] MEDS: PRENATAL VITAMINS W/ FOLIC ACID TABLET (FP) PO SCH (09:13)
[2019-08-14] MEDS: ATENOLOL 25 MG TABLET (FP) PO SCH (09:13)
[2019-08-14] MEDS: OMEGA-3 ACID ETHYL ESTERS (FATTY-ACIDS) 1 GM CAPSULE (FP) PO SCH (09:13)
[2019-08-14] MEDS: ASPIRIN COATED 81 MG TABLET.EC PO SCH (09:14)
[2019-08-14] MEDS: HYDROCHLOROTHIAZIDE 25 MG TABLET (FP) PO SCH (09:14)
[2019-08-14] MEDS: FAMOTIDINE 20 MG TABLET PO SCH (09:14)
[2019-08-14] MEDS: LIDOCAINE 5% TOPICAL PATCH TP SCH (09:14)
[2019-08-14] MEDS: amLODIPine BESYLATE 10 MG TABLET (FP) PO SCH (09:14)
--- NOTE | 2019-08-14 09:30 | DS ---
[facility] Rehab Discharge Summary - [facility] Rehab Discharge Summary Admission Date: 07/22/19 Discharge Date: 08/14/19 - History Present History: Alcohol dependence, Cocaine dependence Pertinent Past History: 64 yo w/ alcohol withdrawal symptoms seeking detox. Det[facility]hab [facility] - 06/14-07/02/19. States relapsed 2 weeks after discharge Denies seizures or overdoses. Black out - years ago. Alcohol use began at age 15. Drinks 1 pint cognac daily. l. Cocaine use began at age 20. Uses 1 gm 3-4x/wk - nasal. Nicotine use began at age 21. Smokes 1 PPD. PMHx: DMII; HTN; HLD; Spinal stenosis; PPD+ MHHx: Schizo-affective disorder. Last saw community psych 4 months ago. Audio hallucinations 2 months ago. Denies thoughts of harming self or others. SHx: Domiciled. Disability. Denies legal issues. 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 Medically stable for discharge.) Hospital Course: Patient attended group, had 1:1 with his counselor and was seen by the psychiatric service. He was adherent to his medication regimen and treatment plan. He had no acute or urgent medical problems while in rehab. - Medication Discharge Medications: Ambulatory Orders Atenolol [Tenormin -] 25 mg PO DAILY #14 tablet 10/26/17 Bupropion HCl [Wellbutrin Xl -] 300 mg PO DAILY #30 tab.sr.24h 12/18/18 Fish Oil 1,000 mg Capsule 1,000 mg PO DAILY 07/22/19 Amlodipine Besylate [Norvasc -] 10 mg PO DAILY #14 tab 08/14/19 Aspirin Coated [Ecotrin -] 81 mg PO DAILY #14 tab 08/14/19 Atenolol [Tenormin -] 25 mg PO BID #30 tablet 08/14/19 Atorvastatin Ca [Lipitor] 20 mg PO HS #14 tablet 08/14/19 Benztropine Mesylate [Cogentin -] 0.5 mg PO HS #30 tablet 08/14/19 Hydrochlorothiazide 25 mg PO DAILY 14 Days #14 tablet 08/14/19 Mirtazapine [Remeron -] 7.5 mg PO HS #14 tablet 08/14/19 Risperidone [Risperdal -] 2 mg PO HS #30 tablet 08/14/19 metFORMIN HCL [Glucophage -] 500 mg PO BIDAC #30 tablet 08/14/19 - Medication-Assisted Treatment (MAT) Medication-Assisted Treatment (MAT): No - Discharge Instructions Diet, activity, other medical instructions: Diet: as tolerated Activity: as tolerated Other medical instructions: Please follow up with aftercare plan. - Diagnosis (1) Alcohol dependence with uncomplicated withdrawal Current Visit: No Status: Chronic (2) Cocaine dependence Current Visit: No Status: Chronic Qualifiers: Substance use status: uncomplicated Qualified Code(s): F14.20 - Cocaine dependence, uncomplicated (3) Alcohol dependence Current Visit: No Status: Chronic - Follow-up Referral Minutes to complete discharge: 15 - AMA Did Patient Leave Against Medical Advice: No
[2019-08-14 10:01] VITALS: BP 150/72; PULSE 67; TEMP 97.6
== END 2019-08-14 09:30 | disposition home or self-care (01) | DRG 772 ==
LOC: YASAS 12:13 → Y5N 12:14 → Y3W 07-29 15:18
PROVIDERS: ADMIT Allergy & Immunology; ATTEND Allergy & Immunology
PROC: HZ42ZZZ Group Counseling for Substance Abuse Treatment, Cognitive-Behavioral (ICD-10-PCS; principal; 2019-07-22)
DX: F10.20 Alcohol dependence, uncomplicated (principal); F14.20 Cocaine dependence, uncomplicated; F12.20 Cannabis dependence, uncomplicated; F17.210 Nicotine dependence, cigarettes, uncomplicated; F25.1 Schizoaffective disorder, depressive type; F90.9 Attention-deficit hyperactivity disorder, unspecified type; E78.5 Hyperlipidemia, unspecified; E11.9 Type 2 diabetes mellitus without complications; Z79.84 Long term (current) use of oral hypoglycemic drugs; I10 Essential (primary) hypertension; D64.9 Anemia, unspecified; L20.9 Atopic dermatitis, unspecified; L85.3 Xerosis cutis; R00.1 Bradycardia, unspecified; M48.07 Spinal stenosis, lumbosacral region; R35.0 Frequency of micturition; R76.11 Nonspecific reaction to tuberculin skin test without active tuberculosis; Z96.641 Presence of right artificial hip joint; Z79.82 Long term (current) use of aspirin; Z88.8 Allergy status to other drugs, medicaments and biological substances; Z88.1 Allergy status to other antibiotic agents
CPT/HCPCS: 81003; 82962; 87086

== ENCOUNTER 2019-08-31 13:51 | Inpatient (IN) | payer OTHER ==
[2019-08-31 16:52] VITALS: BMI 25.1
--- NOTE | 2019-08-31 17:04 | BHS.RME ---
Substance Use & Tx History - Substance Use History Alcohol Substance amount: 1 pint of whisky Frequency of use: Daily Substance route: Oral Date of Last Use: 08/30/19 Cocaine- Powder Substance amount: cocaine 50$ Frequency of use: Daily Substance route: Inhalation (ex: sniffing or snorting) Date of Last Use: 08/30/19 - Last Treatment Date of last treatment: [facility] 07/18/19 to 07/22/19,rehab 07/22/19 to 08/14/19 Where was last treatment: Detox Physical/Psych/Mental Status - Behavior General Behavior: Increased activity (restlessness, agitation) Eye Contact: Normal Other Behaviors: Mannerisms - Cooperativeness Cooperativeness: Cooperative - Thinking Thought Processes: Logical Thought content: Future oriented - Physical Health Problems Is patient presently having any pain?: No Does patient presently have any injuries (include location): No Does patient currently have a fever: No
--- NOTE | 2019-08-31 17:13 | HP ---
CIWA Score Nausea/Vomitin-Mild Nausea/No Vomiting Muscle Tremors: 3 Anxiety: 2 Agitation: 3 Paroxysmal Sweats: 1-Minimal Palms Moist Orientation: 0-Oriented Tacttile Disturbances: 1-Very Mild Itch/Numbness Auditory Disturbances: 0-None Visual Disturbances: 0-None Headache: 2-Mild CIWA-Ar Total Score: 13 - Admission Criteria OASAS Guidelines: Admission for Medically Managed Detox: Requires at least one of the followin. CIWA greater than 12 2. Seizures within the past 24 hours 3. Delirium tremens within the past 24 hours 4. Hallucinations within the past 24 hours 5. Acute intervention needed for co occurring medical disorder 6. Acute intervention needed for co occurring psychiatric disorder 7. Severe withdrawal that cannot be handled at a lower level of care (continued vomiting, continued diarrhea, abnormal vital signs) requiring intravenous medication and/or fluids 8. 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 Cardiovascular: Yes: HTN Gastrointestinal: Yes: GERD Psych: Yes: Other (schizaffective disorder) Musculoskeletal: Yes: Chronic low back pain (spinal sthenosis) - Past Surgical History Additional Past Surgical History: right hip replacement - Smoking History Smoking history: Current every day smoker Have you smoked in the past 12 months: Yes Aproximately how many cigarettes per day: 20 - Alcohol/Substance Use Hx Alcohol Use: Yes History of Substance Use: reports: Cocaine Date of Last Use: 08/31/19 - Social History Usual Living Arrangement: Yes: Alone Do you think of yourself as: Straight/Heterosexual ADL: Support Services Occupation: on sisability History of Recent Travel: No Other Social History: on disability,no legal issue,nicotine dependence,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[employer] Admission ROS [facility] - HPI Chief Complaint: i need help to stop drinking alcohol and cocaine Allergies/Adverse Reactions: Allergies Allergy/AdvReac Type Severity Reaction Status Date / Time enalapril [Enalapril] Allergy Severe Swelling Verified 07/18/19 19:15 levofloxacin [From Levaquin] Allergy Severe Hives Verified 07/18/19 19:15 haloperidol [From Haldol] AdvReac Severe stiffness Verified 07/18/19 19:15 haloperidol lactate AdvReac Severe sfiffness Verified 07/18/19 19:15 [From Haldol] History of Present Illness: this 64 years old male with alcohol,cocaine dependence,seeking detox,multiple admissions in detox and rehab, last detox 07/18/19 to 07/22/19 [facility] rehab 07/22/19 to 08/14/19 relapsed soon after detox history of right hip replacement low back pain on disabilty,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 Loss EENT: reports: Nose Congestion Respiratory: reports: No Symptoms reported Cardiac: reports: No Symptoms Reported GI: reports: Nausea, Poor Appetite, Vomiting, Abdominal cramping : reports: No Symptoms Reported Integumentary: reports: Dryness Neuro: reports: Headache, Tremors Endocrine: reports: No Symptoms Reported Hematology: reports: No Symptoms Reported Psychiatric: reports: No Sypmtoms Reported, Judgement Intact, Mood/Affect Appropiate, Orientated x3, other (schizoaffective disorder) Other Systems: Reviewed and Negative Patient History - Patient Medical History Hx Anemia: Yes Hx Asthma: No Hx Chronic Obstructive Pulmonary Disease (COPD): No Hx Cancer: No Hx Cardiac Disorders: No Hx Congestive Heart Failure: No Hx Hypertension: Yes (on med) Hx Hypercholesterolemia: Yes (no med) Hx Pacemaker: No HX Cerebrovascular Accident: No Hx Seizures: No Hx Dementia: No Hx Diabetes: Yes (on metformin 500 mgs po bid) Hx Gastrointestinal Disorders: No Hx Liver Disease: No Hx Genitourinary Disorders: No Hx Sexually Transmitted Disorders: No Hx Renal Disease (ESRD): No Hx Thyroid Disease: No Hx Human Immunodeficiency Virus (HIV): No Hx Hepatitis C: No (DENIES) Hx Depression: Yes Hx Suicide Attempt: No Hx Bipolar Disorder: No Hx Schizophrenia: Yes Other Medical History: schizoaffective disorder - Patient Surgical History Past Surgical History: Yes Hx Neurologic Surgery: No Hx Cataract Extraction: No Hx Cardiac Surgery: No Hx Lung Surgery: No Hx Breast Surgery: No Hx Breast Biopsy: No Hx Abdominal Surgery: No Hx Appendectomy: No Hx Cholecystectomy: No Hx Genitourinary Surgery: No Hx Section: No Hx Orthopedic Surgery: Yes (right hip replacement in 04/2003 at [facility] for avascular necrosis) Other Surgical History: history of fracture of right foot Anesthesia Reaction: No - PPD History Previous Implant?: Yes Documented Results: Positive w/proof Results: cxr(-)09/03/2018 PPD to be Administered?: No - Smoking Cessation Smoking history: Current every day smoker Have you smoked in the past 12 months: Yes Aproximately how many cigarettes per day: 20 Cigars Per Day: 0 Hx Chewing Tobacco Use: No Initiated information on smoking cessation: Yes 'Breaking Loose' booklet given: 08/31/19 - Substance & Tx. History Hx Alcohol Use: Yes Hx Substance Use: Yes Substance Use Type: Alcohol, Cocaine Hx Substance Use Treatment: Yes (c 07/17/08 detox,rehab 07/22/19 to 08/14/19) - Substances abused Alcohol Substance route: Oral Frequency: Daily Amount used: 1 pint of whisly Age of first use: 15 Date of last use: 08/30/19 Cocaine Substance route: Inhalation Amount used: 50$ Age of first use: 20 Date of last use: 08/30/19 Admission Physical Exam S - Vital Signs Vital Signs: Vital Signs - 24 hr 08/31/19 16:50 Temperature 98.1 F Pulse Rate 60 Respiratory 18 Rate Blood Pressure 115/72 - Physical General Appearance: Yes: Moderate Distress, Tremorous, Irritable, Sweating, Anxious HEENTM: Yes: Normal ENT Inspection, Normocephalic, WILLY, Pharynx Normal Respiratory: Yes: Within Normal Limits, Lungs Clear, No Respiratory Distress Neck: Yes: Within Normal Limits, Supple, Trachea in good position Breast: Yes: Within Normal Limits Cardiology: Yes: Within Normal Limits, Regular Rhythm, Regular Rate, S1, S2 Abdominal: Yes: Within Normal Limits, Normal Bowel Sounds, Non Tender, Flat, Soft Genitourinary: Yes: Within Normal Limits Back: Yes: Muscle Spasm Musculoskeletal: Yes: Back pain, Muscle Pain Extremities: Yes: Tremors Neurological: Yes: Within Normal Limits, director agricultural services 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 (2) Cocaine dependence Current Visit: No Status: Chronic Qualifiers: Substance use status: uncomplicated Qualified Code(s): F14.20 - Cocaine dependence, uncomplicated Comment: . (3) DM2 (diabetes mellitus, type 2) Current Visit: No Status: Chronic Qualifiers: Diabetes mellitus long term care social worker insulin use: without mcc use Diabetes mellitus complication status: without complication Qualified Code(s): E11.9 - Type 2 diabetes mellitus without complications (4) Essential hypertension Current Visit: No Status: Chronic (5) Hx of spinal stenosis Current Visit: No Status: Chronic (6) Hypercholesteremia Current Visit: No Status: Chronic (7) Nicotine dependence Current Visit: No Status: Chronic Qualifiers: Nicotine product type: cigarettes Substance use status: uncomplicated Qualified Code(s): F17.210 - Nicotine dependence, cigarettes, uncomplicated Comment: . (8) Schizoaffective disorder Current Visit: No Status: Chronic Qualifiers: Schizoaffective disorder type: depressive Qualified Code(s): F25.1 - Schizoaffective disorder, depressive type Comment: . Cleared for Admission S - Detox or Rehab [facility] Level of Care: Medically Managed Detox Regimen/Protocol: Librium Breathalyzer - Breathalyzer Breathalyzer: 0 Urine Drug Screen - Test Device Lot number: [id number] Expiration date: 10/11/20 - Control Is test valid?: Yes - Results Drug screen NEGATIVE: No Urine drug screen results: JESUS ALBERTO-Cocaine Inpatient Rehab Admission - Rehab Decision to Admit Inpatient rehab admission?: No
[2019-08-31] MEDS ORDERED: MAG HYDROX/AL HYDROX/SIMETH 30 ML UNIT-DOSE CUP PO PRN (17:58)
[2019-08-31] MEDS ORDERED: METHOCARBAMOL 500 MG TABLET PO PRN (17:58)
[2019-08-31] MEDS ORDERED: MAGNESIUM CITRATE 300 ML BOTTLE PO PRN (17:58)
[2019-08-31] MEDS ORDERED: chlordiazePOXIDE HCL 25 MG CAPSULE PO PRN (17:58)
[2019-08-31] MEDS ORDERED: ONDANSETRON *ODT* 4 MG TABLET SL ONE (17:58)
[2019-08-31] MEDS ORDERED: MENTHOL/PHENOL 1 EACH UD MM PRN (17:58)
[2019-08-31] MEDS ORDERED: ACETAMINOPHEN 325 MG TABLET (FP) PO PRN ×2 (17:58)
[2019-08-31] MEDS ORDERED: MAGNESIUM HYDROX 2400MG/30ML ORAL SUSPENSION 30 ML CUP PO PRN (17:58)
[2019-08-31] MEDS ORDERED: IBUPROFEN 400 MG TABLET (FP) PO PRN (17:58)
[2019-08-31] MEDS ORDERED: BISMUTH SUBSALICYLATE 524 MG/30 ML UD PO PRN (17:58)
[2019-08-31] MEDS: hydrOXYzine PAMOATE 25 MG CAPSULE (FP) PO SCH ×2 (19:13→22:21)
[2019-08-31] MEDS: NICOTINE POLACRILEX 4 MG GUM BUC PRN (19:15)
[2019-08-31] MEDS ORDERED: ATENOLOL 50 MG TABLET (FP) PO SCH (22:00)
[2019-08-31] MEDS: ATORVASTATIN CA 20 MG TABLET (FP) PO SCH (22:19)
[2019-08-31] MEDS: chlordiazePOXIDE HCL 25 MG CAPSULE PO SCH (22:19)
[2019-08-31] MEDS: THIAMINE HCL 100 MG TABLET (FP) PO SCH (22:19)
[2019-08-31] MEDS: MELATONIN 5 MG TABLETS PO SCH (22:21)
[2019-09-01] MEDS: chlordiazePOXIDE HCL 25 MG CAPSULE PO SCH ×4 (05:18→22:08)
[2019-09-01] MEDS: NICOTINE POLACRILEX 4 MG GUM BUC PRN ×4 (05:18→22:11)
[2019-09-01] MEDS: hydrOXYzine PAMOATE 25 MG CAPSULE (FP) PO SCH ×5 (05:18→22:08)
[2019-09-01] MEDS: metFORMIN HCL 500 MG TABLET (FP) PO SCH ×2 (06:22→16:39)
--- NOTE | 2019-09-01 09:26 | CONSULT ---
[facility] Psychiatric Consult - Data Date of interview: 09/01/19 Admission source: Self-referred Identifying data: Saran is a 64 years old single Black male, unemployed receiving SSI/[employer] pension, domiciled seeking detox treatment for alcohol, cocaine and cannabis Substance Abuse History: Reports history of alcohol, cocaine and marijuana use use. Refer to addiction counselor's summary for further information Medical History: Significant for hypertension, dyslipidemia, type 2 diabetes mellitus, angina pectoris, spinal stenosis, lower back pain, arthritis L3-L4, history of prophylactic treatment for TB with INH (2004), right hip replacement for avascular necrosis (2003) and fracture right fibula in 1996. Smokes 10 cigarettes daily Psychiatric History: Patient is known for multiple previous admissions to this facility. He reports onset of psychiatric disturbances in 2003 when he was admitted to [facility] and diagnosed with Schizoaffective Disorder and PTSD. Reports multiple psychiatric admissions to various institutions including to [facility], [facility], [facility], [facility], [facility] in [facility], [facility] and most recently the [facility] from June-July 2017. Reports receiving [place] at [place] and he is prescribed Risperdal 2 mg/hs, Remeron 7.5 mg/hs, Wellbutrin XL 300 mg/day and Cogentin 0.5 mg/hs. During his recent admission to this facility he was seen by health technical writer on 07/22/19 and reported that he was seeing Dr Evans at [facility] and he was prescribed Wellbutrin XL 300 mg/day, Risperdal 2 mg/hs, Remeron 7.5 mg/hs and Cogentin 0.5 mg/hs. [email or web address], [address] [place] [id number] [phone]. According to pharmacist, scripts for 30 days supply of above medications were received electronically but he did not not pick them up. Reportedly he has had several suicide attempts, most recently in January 2017, via deliberate self exposure to oncoming traffic. At present, denies experienicing psychotic, manic symptoms, S/H ideations. However, reports feeling mildly deptressed and sleeping poorly. Requests to resume medications Physical/Sexual Abuse/Trauma History: Patient denies history of emotional, sexual or physical abuse as well as DV relationship. 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 Served in [employer] [facility], [employer] and [place] in the . No report of flashbacks or nightmares. Additional Comment: Reports history of multiple previous arrests including 3 felony conv ictions. Reports being off parole for years Mental Status Exam - Mental Status Exam Alert and Oriented to: Time, Place, Person Cognitive Function: Fair Patient Appearance: Well Groomed Mood: Depressed (mildly) Affect: Appropriate Patient Behavior: Cooperative Speech Pattern: Clear Voice Loudness: Normal Thought Process: Intact Hallucinations: Denies Suicidal Ideation: Denies Homicidal Ideation: Denies Insight/Judgement: Poor Sleep: Poorly Appetite: Good Muscle strength/Tone: Normal Gait/Station: Normal Psychiatric Findings - Problem List ([place] 1, 2,3) (1) Schizoaffective disorder Current Visit: No Status: Chronic Qualifiers: Schizoaffective disorder type: depressive Qualified Code(s): F25.1 - Schizoaffective disorder, depressive type Comment: . (2) PTSD (post-traumatic stress disorder) Current Visit: No Status: Chronic Comment: . By history. (3) Substance induced mood disorder Current Visit: Yes Status: Acute (4) Substance-induced sleep disorder Current Visit: No Status: Acute (5) Alcohol dependence with uncomplicated withdrawal Current Visit: No Status: Chronic Comment: . (6) Cocaine dependence Current Visit: No Status: Chronic Qualifiers: Substance use status: uncomplicated Qualified Code(s): F14.20 - Cocaine dependence, uncomplicated Comment: . (7) Nicotine dependence Current Visit: No Status: Chronic Qualifiers: Nicotine product type: cigarettes Substance use status: uncomplicated Qualified Code(s): F17.210 - Nicotine dependence, cigarettes, uncomplicated Comment: . (8) Essential hypertension Current Visit: No Status: Chronic (9) Hypercholesteremia Current Visit: No Status: Chronic (10) DM2 (diabetes mellitus, type 2) Current Visit: No Status: Chronic Qualifiers: Diabetes mellitus correction insulin use: without correction use Diabetes mellitus complication status: without complication Qualified Code(s): E11.9 - Type 2 diabetes mellitus without complications (11) Spinal stenosis, lumbosacral region Current Visit: No Status: Resolved (12) History of positive PPD Current Visit: No Status: Ruled-out Comment: Last CXR 02/2019 (13) Arthritis Current Visit: No Status: Chronic (14) Back pain Current Visit: No Status: Chronic Qualifiers: Back pain location: low back pain Chronicity: chronic Back pain laterality: midline Sciatica presence: without sciatica Qualified Code(s): M54.5 - Low back pain; G89.29 - Other chronic pain - Initial Treatment Plan Initial Treatment Plan: 1) Resume Wellbutrin XL 300 mg po daily, Risperdal 2 mg po HS, Cogentin 0.5 mg po HS and Remeron 7.5 mg po HS. 2) Continue inpatient detoxofication
[2019-09-01 10:17] LABS: HEMATOCRIT 39.5 % (35.4-49); HEMOGLOBIN 13.1 GM/dL (11.7-16.9); MCH 33.5 pg (25.7-33.7); MCHC 33.3 g/dl (32.0-35.9); MEAN CELL VOLUME 100.6 fl (80-96); MEAN PLT VOLUME 8.9 fl (7.5-11.1); PLATELET COUNT 200 K/MM3 (134-434); RBC 3.92 M/mm3 (4.00-5.60); WHITE BLOOD COUNT 3.1 K/mm3 (4.0-10.0)
[2019-09-01 10:32] LABS: ALBUMIN 3.7 g/dl (3.4-5.0); BILIRUBIN,TOTAL 0.9 mg/dL (0.2-1); CALCIUM 9.3 mg/dL (8.5-10.1); CREATININE 1.3 mg/dL (0.55-1.3); POTASSIUM 3.8 mmol/L (3.5-5.1)
[2019-09-01] MEDS: amLODIPine BESYLATE 10 MG TABLET (FP) PO SCH (10:55)
[2019-09-01] MEDS: ASPIRIN COATED 81 MG TABLET.EC PO SCH (10:55)
[2019-09-01] MEDS: ATENOLOL 25 MG TABLET (FP) PO SCH ×2 (10:56→22:09)
[2019-09-01] MEDS: PRENATAL VITAMINS W/ FOLIC ACID TABLET (FP) PO SCH (10:56)
--- NOTE | 2019-09-01 12:38 | PN ---
[facility] CIWA - CIWA Score Nausea/Vomitin-Mild Nausea/No Vomiting Muscle Tremors: 3 Anxiety: 2 Agitation: 2 Paroxysmal Sweats: No Perspiration Orientation: 0-Oriented Tacttile Disturbances: 1-Very Mild Itch/Numbness Auditory Disturbances: 0-None Visual Disturbances: 0-None Headache: 2-Mild CIWA-Ar Total Score: 11 S Progress Note (SOAP) Subjective: alert,irritable,anxious,interrupted sleep,tremor,pain in the body Objective: 09/01/19 12:36 Laboratory Last Values WBC 3.1 K/mm3 (4.0-10.0) L 09/01/19 08:15 RBC 3.92 M/mm3 (4.00-5.60) L 09/01/19 08:15 Hgb 13.1 GM/dL (11.7-16.9) 09/01/19 08:15 Hct 39.5 % (35.4-49) 09/01/19 08:15 MCV 100.6 fl (80-96) H 09/01/19 08:15 MCH 33.5 pg (25.7-33.7) 09/01/19 08:15 MCHC 33.3 g/dl (32.0-35.9) 09/01/19 08:15 RDW 13.0 % (11.9-15.9) 09/01/19 08:15 Plt Count 200 K/MM3 (134-434) 09/01/19 08:15 MPV 8.9 fl (7.5-11.1) 09/01/19 08:15 Sodium 138 mmol/L (136-145) 09/01/19 08:15 Potassium 3.8 mmol/L (3.5-5.1) 09/01/19 08:15 Chloride 101 mmol/L (98-107) 09/01/19 08:15 Carbon Dioxide 30 mmol/L (21-32) 09/01/19 08:15 Anion Gap 7 MMOL/L (8-16) L 09/01/19 08:15 BUN 18.0 mg/dL (7-18) 09/01/19 08:15 Creatinine 1.3 mg/dL (0.55-1.3) 09/01/19 08:15 Est GFR (CKD-EPI)AfAm 67.78 09/01/19 08:15 Est GFR (CKD-EPI)NonAf 58.48 09/01/19 08:15 POC Glucometer 87 UNITS (80-120) 09/01/19 05:17 Random Glucose 118 mg/dL (74-106) H 09/01/19 08:15 Calcium 9.3 mg/dL (8.5-10.1) 09/01/19 08:15 Total Bilirubin 0.9 mg/dL (0.2-1) 09/01/19 08:15 AST 13 U/L (15-37) L 09/01/19 08:15 ALT 19 U/L (13-61) 09/01/19 08:15 Alkaline Phosphatase 59 U/L (45-117) 09/01/19 08:15 Total Protein 8.0 g/dl (6.4-8.2) 09/01/19 08:15 Albumin 3.7 g/dl (3.4-5.0) 09/01/19 08:15 Assessment: 09/01/19 12:37 withdrawal symptom Plan: continue detox librium regimen,fasting glucose in am
[2019-09-01] MEDS: ATORVASTATIN CA 20 MG TABLET (FP) PO SCH (22:08)
[2019-09-01] MEDS: THIAMINE HCL 100 MG TABLET (FP) PO SCH (22:08)
[2019-09-01] MEDS: BENZTROPINE MESYLATE 1 MG TABLET PO SCH (22:08)
[2019-09-01] MEDS: risperiDONE 2 MG TABLET PO SCH (22:08)
[2019-09-01] MEDS: MIRTAZAPINE 15 MG TABLET (FP) PO SCH (22:08)
[2019-09-01] MEDS: MELATONIN 5 MG TABLETS PO SCH (22:12)
[2019-09-02] MEDS: chlordiazePOXIDE HCL 25 MG CAPSULE PO SCH ×4 (05:48→22:38)
[2019-09-02] MEDS: hydrOXYzine PAMOATE 25 MG CAPSULE (FP) PO SCH (05:48)
[2019-09-02] MEDS: metFORMIN HCL 500 MG TABLET (FP) PO SCH ×2 (06:31→17:02)
[2019-09-02] MEDS ORDERED: hydrOXYzine PAMOATE 25 MG CAPSULE (FP) PO PRN (08:40)
--- NOTE | 2019-09-02 09:46 | PN ---
S CIWA - CIWA Score Nausea/Vomitin-No Nausea/No Vomiting Muscle Tremors: 2 Anxiety: 1-Mildly Anxious Agitation: 1-Slight > Activity Paroxysmal Sweats: 2 Orientation: 0-Oriented Tacttile Disturbances: 0-None Auditory Disturbances: 0-None Visual Disturbances: 0-None Headache: 0-None Present CIWA-Ar Total Score: 6 BHS Progress Note (SOAP) Subjective: insomnia sweats Objective: 09/02/19 09:45 Vital Signs Temperature 97.3 F L 09/02/19 05:34 Pulse Rate 69 09/02/19 05:34 Respiratory Rate 18 09/02/19 05:34 Blood Pressure 142/82 09/02/19 05:34 O2 Sat by Pulse Oximetry (%) 97 09/02/19 05:34 Laboratory Results - last 24 hr 09/01/19 09/01/19 09/01/19 08:15 08:15 08:15 WBC 3.1 L RBC 3.92 L Hgb 13.1 Hct 39.5 MCV 100.6 H MCH 33.5 MCHC 33.3 RDW 13.0 Plt Count 200 MPV 8.9 Sodium 138 Potassium 3.8 Chloride 101 Carbon Dioxide 30 Anion Gap 7 L BUN 18.0 Creatinine 1.3 Est GFR (CKD-EPI)AfAm 67.78 Est GFR (CKD-EPI)NonAf 58.48 POC Glucometer Random Glucose 118 H Calcium 9.3 Total Bilirubin 0.9 AST 13 L ALT 19 Alkaline Phosphatase 59 Total Protein 8.0 Albumin 3.7 Syphilis Serology Non-reactive 09/01/19 09/02/19 16:35 05:47 WBC RBC Hgb Hct MCV MCH MCHC RDW Plt Count MPV Sodium Potassium Chloride Carbon Dioxide Anion Gap BUN Creatinine Est GFR (CKD-EPI)AfAm Est GFR (CKD-EPI)NonAf POC Glucometer 109 113 Random Glucose Calcium Total Bilirubin AST ALT Alkaline Phosphatase Total Protein Albumin Syphilis Serology labs noted aaox3 ambulating no acute distress Assessment: 09/02/19 09:45 withdrawals Plan: continue detox melatonin 10mg prn qhs increase fluids
[2019-09-02] MEDS: ATENOLOL 25 MG TABLET (FP) PO SCH ×2 (10:26→22:38)
[2019-09-02] MEDS: amLODIPine BESYLATE 10 MG TABLET (FP) PO SCH (10:26)
[2019-09-02] MEDS: ASPIRIN COATED 81 MG TABLET.EC PO SCH (10:26)
[2019-09-02] MEDS: PRENATAL VITAMINS W/ FOLIC ACID TABLET (FP) PO SCH (10:26)
[2019-09-02] MEDS: NICOTINE POLACRILEX 4 MG GUM BUC PRN ×4 (10:28→22:41)
[2019-09-02 15:05] LABS: PH,URINE 5.5 (5.0-8.0); URINE APPEARANCE CLEAR; URINE BILIRUBIN NEGATIVE (NEGATIVE); URINE COLOR YELLOW; URINE GLUCOSE (UA) NEGATIVE (NEGATIVE); URINE KETONE TRACE (NEGATIVE); URINE LEUK ESTERASE NEGATIVE (NEGATIVE); URINE NITRITE NEGATIVE (NEGATIVE); URINE PROTEIN NEGATIVE (NEGATIVE)
[2019-09-02] MEDS: BENZTROPINE MESYLATE 1 MG TABLET PO SCH (22:37)
[2019-09-02] MEDS: ATORVASTATIN CA 20 MG TABLET (FP) PO SCH (22:38)
[2019-09-02] MEDS: MELATONIN 5 MG TABLETS PO SCH (22:38)
[2019-09-02] MEDS: MIRTAZAPINE 15 MG TABLET (FP) PO SCH (22:38)
[2019-09-02] MEDS: risperiDONE 2 MG TABLET PO SCH (22:38)
[2019-09-02] MEDS: THIAMINE HCL 100 MG TABLET (FP) PO SCH (22:38)
[2019-09-03] MEDS ORDERED: chlordiazePOXIDE HCL 10 MG CAPSULE PO PRN
[2019-09-03] MEDS: NICOTINE POLACRILEX 4 MG GUM BUC PRN ×3 (06:00→22:09)
[2019-09-03] MEDS: chlordiazePOXIDE HCL 10 MG CAPSULE PO SCH ×4 (06:01→22:10)
[2019-09-03] MEDS: metFORMIN HCL 500 MG TABLET (FP) PO SCH ×2 (08:13→16:30)
--- NOTE | 2019-09-03 09:53 | PN ---
S CIWA - CIWA Score Nausea/Vomitin-No Nausea/No Vomiting Muscle Tremors: 1-None Visible, but [place] Anxiety: 1-Mildly Anxious Agitation: 1-Slight > Activity Paroxysmal Sweats: 1-Minimal Palms Moist Orientation: 0-Oriented Tacttile Disturbances: 0-None Auditory Disturbances: 0-None Visual Disturbances: 0-None Headache: 0-None Present CIWA-Ar Total Score: 4 BHS Progress Note (SOAP) Subjective: feeling better slept better with increase of melatonin Objective: 09/03/19 09:52 Vital Signs Temperature 97.1 F L 09/03/19 08:30 Pulse Rate 59 L 09/03/19 08:30 Respiratory Rate 19 09/03/19 08:30 Blood Pressure 155/76 09/03/19 08:30 O2 Sat by Pulse Oximetry (%) 97 09/02/19 20:44 aaox3 ambulating no acute distress Assessment: 09/03/19 09:53 withdrawals Plan: continue detox
[2019-09-03] MEDS: ASPIRIN COATED 81 MG TABLET.EC PO SCH (10:12)
[2019-09-03] MEDS: ATENOLOL 25 MG TABLET (FP) PO SCH ×2 (10:12→22:10)
[2019-09-03] MEDS: amLODIPine BESYLATE 10 MG TABLET (FP) PO SCH (10:12)
[2019-09-03] MEDS: PRENATAL VITAMINS W/ FOLIC ACID TABLET (FP) PO SCH (10:14)
[2019-09-03] MEDS: ATORVASTATIN CA 20 MG TABLET (FP) PO SCH (22:09)
[2019-09-03] MEDS: MIRTAZAPINE 15 MG TABLET (FP) PO SCH (22:09)
[2019-09-03] MEDS: BENZTROPINE MESYLATE 1 MG TABLET PO SCH (22:10)
[2019-09-03] MEDS: THIAMINE HCL 100 MG TABLET (FP) PO SCH (22:10)
[2019-09-03] MEDS: risperiDONE 2 MG TABLET PO SCH (22:10)
[2019-09-03] MEDS: MELATONIN 5 MG TABLETS PO SCH (22:13)
[2019-09-04] MEDS: chlordiazePOXIDE HCL 10 MG CAPSULE PO SCH ×2 (05:58→17:54)
[2019-09-04] MEDS: NICOTINE POLACRILEX 4 MG GUM BUC PRN ×4 (06:01→22:31)
[2019-09-04] MEDS: metFORMIN HCL 500 MG TABLET (FP) PO SCH ×2 (07:31→17:54)
--- NOTE | 2019-09-04 10:41 | PN ---
S CIWA - CIWA Score Nausea/Vomitin-No Nausea/No Vomiting Muscle Tremors: 1-None Visible, but [place] Anxiety: 1-Mildly Anxious Agitation: 0-Normal Activity Paroxysmal Sweats: No Perspiration Orientation: 0-Oriented Tacttile Disturbances: 0-None Auditory Disturbances: 0-None Visual Disturbances: 0-None Headache: 0-None Present CIWA-Ar Total Score: 2 BHS Progress Note (SOAP) Subjective: I need aveeno soap the soap in the dispense is making my skin itch. Objective: 09/04/19 10:41 Vital Signs Temperature 97.7 F 09/04/19 05:45 Pulse Rate 58 L 09/04/19 05:45 Respiratory Rate 20 09/04/19 05:45 Blood Pressure 144/74 09/04/19 05:45 O2 Sat by Pulse Oximetry (%) 98 09/04/19 05:45 aaox3 ambulating no acute distress Assessment: 09/04/19 10:41 mild withdrawals no skin irritation noted; no rashes. Plan: will order aveeno soap continue detox d/c in am
[2019-09-04] MEDS: PRENATAL VITAMINS W/ FOLIC ACID TABLET (FP) PO SCH (10:44)
[2019-09-04] MEDS: ATENOLOL 25 MG TABLET (FP) PO SCH ×2 (10:44→22:30)
[2019-09-04] MEDS: amLODIPine BESYLATE 10 MG TABLET (FP) PO SCH (10:44)
[2019-09-04] MEDS: ASPIRIN COATED 81 MG TABLET.EC PO SCH (10:44)
[2019-09-04] MEDS ORDERED: COLLOIDAL OATMEAL 1 BAR EACH TP ONE (11:00)
[2019-09-04 17:26] VITALS: TEMP 97.5
[2019-09-04] MEDS: BENZTROPINE MESYLATE 1 MG TABLET PO SCH (22:29)
[2019-09-04] MEDS: risperiDONE 2 MG TABLET PO SCH (22:29)
[2019-09-04] MEDS: MIRTAZAPINE 15 MG TABLET (FP) PO SCH (22:29)
[2019-09-04] MEDS: THIAMINE HCL 100 MG TABLET (FP) PO SCH (22:30)
[2019-09-04] MEDS: MELATONIN 5 MG TABLETS PO SCH (22:30)
[2019-09-04] MEDS: ATORVASTATIN CA 20 MG TABLET (FP) PO SCH (22:31)
[2019-09-05] MEDS ORDERED: chlordiazePOXIDE HCL 10 MG CAPSULE PO ONE (05:00)
[2019-09-05] MEDS: NICOTINE POLACRILEX 4 MG GUM BUC PRN ×2 (05:31→10:07)
[2019-09-05 06:23] VITALS: BP 148/80; PULSE 60
[2019-09-05] MEDS: metFORMIN HCL 500 MG TABLET (FP) PO SCH (06:30)
--- NOTE | 2019-09-05 08:34 | DS ---
[facility] Detox Discharge Summary Admission Date: 08/31/19 Discharge Date: 09/05/19 - History Present History: Alcohol Dependence, Cannabis Dependence, Cocaine Dependence - Physical Exam Results Vital Signs: Vital Signs Temperature 97.5 F L 09/05/19 05:26 Pulse Rate 60 09/05/19 05:26 Respiratory Rate 20 09/05/19 05:26 Blood Pressure 148/80 09/05/19 05:26 O2 Sat by Pulse Oximetry (%) 100 09/05/19 05:26 Laboratory Tests 08/31/19 08/31/19 09/01/19 18:37 23:49 05:17 WBC RBC Hgb Hct MCV MCH MCHC RDW Plt Count MPV Sodium Potassium Chloride Carbon Dioxide Anion Gap BUN Creatinine Est GFR (CKD-EPI)AfAm Est GFR (CKD-EPI)NonAf POC Glucometer 83 87 Random Glucose Fasting Glucose Calcium Total Bilirubin AST ALT Alkaline Phosphatase Total Protein Albumin Urine Color Urine Appearance Urine pH Ur Specific [place] Urine Protein Urine Glucose (UA) Urine Ketones Urine Blood Urine Nitrite Urine Bilirubin Urine Urobilinogen Ur Leukocyte Esterase Syphilis Serology COVID-19 (ALFREDO) Not detected 09/01/19 09/01/19 09/01/19 08:15 08:15 08:15 WBC 3.1 L RBC 3.92 L Hgb 13.1 Hct 39.5 MCV 100.6 H MCH 33.5 MCHC 33.3 RDW 13.0 Plt Count 200 MPV 8.9 Sodium 138 Potassium 3.8 Chloride 101 Carbon Dioxide 30 Anion Gap 7 L BUN 18.0 Creatinine 1.3 Est GFR (CKD-EPI)AfAm 67.78 Est GFR (CKD-EPI)NonAf 58.48 POC Glucometer Random Glucose 118 H Fasting Glucose Calcium 9.3 Total Bilirubin 0.9 AST 13 L ALT 19 Alkaline Phosphatase 59 Total Protein 8.0 Albumin 3.7 Urine Color Urine Appearance Urine pH Ur Specific [place] Urine Protein Urine Glucose (UA) Urine Ketones Urine Blood Urine Nitrite Urine Bilirubin Urine Urobilinogen Ur Leukocyte Esterase Syphilis Serology Non-reactive COVID-19 (ALFREDO) 09/01/19 09/02/19 09/02/19 16:35 05:47 07:50 WBC RBC Hgb Hct MCV MCH MCHC RDW Plt Count MPV Sodium Potassium Chloride Carbon Dioxide Anion Gap BUN Creatinine Est GFR (CKD-EPI)AfAm Est GFR (CKD-EPI)NonAf POC Glucometer 109 113 Random Glucose Fasting Glucose 92 Calcium Total Bilirubin AST ALT Alkaline Phosphatase Total Protein Albumin Urine Color Urine Appearance Urine pH Ur Specific [place] Urine Protein Urine Glucose (UA) Urine Ketones Urine Blood Urine Nitrite Urine Bilirubin Urine Urobilinogen Ur Leukocyte Esterase Syphilis Serology COVID-19 ([facility]FREDO) 09/02/19 09/02/19 09/03/19 12:50 17:01 05:59 WBC RBC Hgb Hct MCV MCH MCHC RDW Plt Count MPV Sodium Potassium Chloride Carbon Dioxide Anion Gap BUN Creatinine Est GFR (CKD-EPI)AfAm Est GFR (CKD-EPI)NonAf POC Glucometer 118 98 Random Glucose Fasting Glucose Calcium Total Bilirubin AST ALT Alkaline Phosphatase Total Protein Albumin Urine Color Yellow Urine Appearance Clear Urine pH 5.5 D Ur Specific [place] 1.023 Urine Protein Negative Urine Glucose (UA) Negative Urine Ketones Trace H Urine Blood Negative Urine Nitrite Negative Urine Bilirubin Negative Urine Urobilinogen 1.0 Ur Leukocyte Esterase Negative Syphilis Serology COVID-19 ([facility]FREDO) 09/03/19 09/04/19 09/04/19 16:29 06:00 16:54 WBC RBC Hgb Hct MCV MCH MCHC RDW Plt Count MPV Sodium Potassium Chloride Carbon Dioxide Anion Gap BUN Creatinine Est GFR (CKD-EPI)AfAm Est GFR (CKD-EPI)NonAf POC Glucometer 99 90 95 Random Glucose Fasting Glucose Calcium Total Bilirubin AST ALT Alkaline Phosphatase Total Protein Albumin Urine Color Urine Appearance Urine pH Ur Specific [place] Urine Protein Urine Glucose (UA) Urine Ketones Urine Blood Urine Nitrite Urine Bilirubin Urine Urobilinogen Ur Leukocyte Esterase Syphilis Serology COVID-19 ([facility]FREDO) 09/05/19 05:29 WBC RBC Hgb Hct MCV MCH MCHC RDW Plt Count MPV Sodium Potassium Chloride Carbon Dioxide Anion Gap BUN Creatinine Est GFR (CKD-EPI)AfAm Est GFR (CKD-EPI)NonAf POC Glucometer 106 Random Glucose Fasting Glucose Calcium Total Bilirubin AST ALT Alkaline Phosphatase Total Protein Albumin Urine Color Urine Appearance Urine pH Ur Specific [place] Urine Protein Urine Glucose (UA) Urine Ketones Urine Blood Urine Nitrite Urine Bilirubin Urine Urobilinogen Ur Leukocyte Esterase Syphilis Serology COVID-19 ([facility]EDO) aaox3 ambulating no acute distress Pertinent Admission Physical Exam Findings: Laboratory Tests 08/31/19 08/31/19 09/01/19 18:37 23:49 05:17 WBC RBC Hgb Hct MCV MCH MCHC RDW Plt Count MPV Sodium Potassium Chloride Carbon Dioxide Anion Gap BUN Creatinine Est GFR (CKD-EPI)AfAm Est GFR (CKD-EPI)NonAf POC Glucometer 83 87 Random Glucose Fasting Glucose Calcium Total Bilirubin AST ALT Alkaline Phosphatase Total Protein Albumin Urine Color Urine Appearance Urine pH Ur Specific [place] Urine Protein Urine Glucose (UA) Urine Ketones Urine Blood Urine Nitrite Urine Bilirubin Urine Urobilinogen Ur Leukocyte Esterase Syphilis Serology COVID-19 ([facility]EDO) Not detected 09/01/19 09/01/19 09/01/19 08:15 08:15 08:15 WBC 3.1 L RBC 3.92 L Hgb 13.1 Hct 39.5 MCV 100.6 H MCH 33.5 MCHC 33.3 RDW 13.0 Plt Count 200 MPV 8.9 Sodium 138 Potassium 3.8 Chloride 101 Carbon Dioxide 30 Anion Gap 7 L BUN 18.0 Creatinine 1.3 Est GFR (CKD-EPI)AfAm 67.78 Est GFR (CKD-EPI)NonAf 58.48 POC Glucometer Random Glucose 118 H Fasting Glucose Calcium 9.3 Total Bilirubin 0.9 AST 13 L ALT 19 Alkaline Phosphatase 59 Total Protein 8.0 Albumin 3.7 Urine Color Urine Appearance Urine pH Ur Specific [place] Urine Protein Urine Glucose (UA) Urine Ketones Urine Blood Urine Nitrite Urine Bilirubin Urine Urobilinogen Ur Leukocyte Esterase Syphilis Serology Non-reactive COVID-19 ([facility]) 09/01/19 09/02/19 09/02/19 16:35 05:47 07:50 WBC RBC Hgb Hct MCV MCH MCHC RDW Plt Count MPV Sodium Potassium Chloride Carbon Dioxide Anion Gap BUN Creatinine Est GFR (CKD-EPI)AfAm Est GFR (CKD-EPI)NonAf POC Glucometer 109 113 Random Glucose Fasting Glucose 92 Calcium Total Bilirubin AST ALT Alkaline Phosphatase Total Protein Albumin Urine Color Urine Appearance Urine pH Ur Specific [place] Urine Protein Urine Glucose (UA) Urine Ketones Urine Blood Urine Nitrite Urine Bilirubin Urine Urobilinogen Ur Leukocyte Esterase Syphilis Serology COVID-19 ([facility]) 09/02/19 09/02/19 09/03/19 12:50 17:01 05:59 WBC RBC Hgb Hct MCV MCH MCHC RDW Plt Count MPV Sodium Potassium Chloride Carbon Dioxide Anion Gap BUN Creatinine Est GFR (CKD-EPI)AfAm Est GFR (CKD-EPI)NonAf POC Glucometer 118 98 Random Glucose Fasting Glucose Calcium Total Bilirubin AST ALT Alkaline Phosphatase Total Protein Albumin Urine Color Yellow Urine Appearance Clear Urine pH 5.5 D Ur Specific [place] 1.023 Urine Protein Negative Urine Glucose (UA) Negative Urine Ketones Trace H Urine Blood Negative Urine Nitrite Negative Urine Bilirubin Negative Urine Urobilinogen 1.0 Ur Leukocyte Esterase Negative Syphilis Serology COVID-19 ([facility]) 09/03/19 09/04/19 09/04/19 16:29 06:00 16:54 WBC RBC Hgb Hct MCV MCH MCHC RDW Plt Count MPV Sodium Potassium Chloride Carbon Dioxide Anion Gap BUN Creatinine Est GFR (CKD-EPI)AfAm Est GFR (CKD-EPI)NonAf POC Glucometer 99 90 95 Random Glucose Fasting Glucose Calcium Total Bilirubin AST ALT Alkaline Phosphatase Total Protein Albumin Urine Color Urine Appearance Urine pH Ur Specific [place] Urine Protein Urine Glucose (UA) Urine Ketones Urine Blood Urine Nitrite Urine Bilirubin Urine Urobilinogen Ur Leukocyte Esterase Syphilis Serology COVID-19 ([facility]) 09/05/19 05:29 WBC RBC Hgb Hct MCV MCH MCHC RDW Plt Count MPV Sodium Potassium Chloride Carbon Dioxide Anion Gap BUN Creatinine Est GFR (CKD-EPI)AfAm Est GFR (CKD-EPI)NonAf POC Glucometer 106 Random Glucose Fasting Glucose Calcium Total Bilirubin AST ALT Alkaline Phosphatase Total Protein Albumin Urine Color Urine Appearance Urine pH Ur Specific [place] Urine Protein Urine Glucose (UA) Urine Ketones Urine Blood Urine Nitrite Urine Bilirubin Urine Urobilinogen Ur Leukocyte Esterase Syphilis Serology COVID-19 ([facility]EDO) aaox3 ambulating no acute distress lungs CTA - Treatment Hospital Course: Detox Protocol Followed, Detoxed Safely, Responded well, Discharged Condition Good, Rehab Referral Accepted - Medication Discharge Medications: Ambulatory Orders Bupropion HCl [Wellbutrin Xl -] 300 mg PO DAILY #30 tab.sr.24h 12/18/18 Fish Oil 1,000 mg Capsule 1,000 mg PO DAILY 07/22/19 Amlodipine Besylate [Norvasc -] 10 mg PO DAILY #14 tab 08/14/19 Aspirin Coated [Ecotrin -] 81 mg PO DAILY #14 tab 08/14/19 Atenolol [Tenormin -] 25 mg PO BID #30 tablet 08/14/19 Atorvastatin Ca [Lipitor] 20 mg PO HS #14 tablet 08/14/19 Benztropine Mesylate [Cogentin -] 0.5 mg PO HS #30 tablet 08/14/19 Hydrochlorothiazide 25 mg PO DAILY 14 Days #14 tablet 08/14/19 Mirtazapine [Remeron -] 7.5 mg PO HS #14 tablet 08/14/19 Risperidone [Risperdal -] 2 mg PO HS #30 tablet 08/14/19 metFORMIN HCL [Glucophage -] 500 mg PO BIDAC #30 tablet 08/14/19 - Diagnosis (1) Substance induced mood disorder Current Visit: Yes Status: Acute (2) Substance-induced anxiety disorder Current Visit: No Status: Acute (3) Substance-induced sleep disorder Current Visit: No Status: Acute (4) Alcohol dependence with uncomplicated withdrawal Current Visit: Yes Status: Chronic (5) Arthritis Current Visit: Yes Status: Chronic (6) Back pain Current Visit: No Status: Chronic Qualifiers: Back pain location: low back pain Chronicity: chronic Back pain laterality: midline Sciatica presence: without sciatica Qualified Code(s): M54.5 - Low back pain; G89.29 - Other chronic pain (7) Bradycardia Current Visit: No Status: Chronic (8) Cannabis dependence, uncomplicated Current Visit: Yes Status: Chronic (9) Cocaine dependence Current Visit: Yes Status: Chronic Qualifiers: Substance use status: uncomplicated Qualified Code(s): F14.20 - Cocaine dependence, uncomplicated (10) DM2 (diabetes mellitus, type 2) Current Visit: No Status: Chronic Qualifiers: Diabetes mellitus terminal supervisor insulin use: without terminal supervisor use Diabetes mellitus complication status: without complication Qualified Code(s): E11.9 - Type 2 diabetes mellitus without complications (11) Essential hypertension Current Visit: No Status: Chronic (12) History of depression Current Visit: No Status: Chronic (13) Hx of spinal stenosis Current Visit: No Status: Chronic (14) Hypercholesteremia Current Visit: No Status: Chronic (15) Insomnia Current Visit: No Status: Chronic Qualifiers: Insomnia type: unspecified Qualified Code(s): G47.00 - Insomnia, unspecified (16) Insomnia Current Visit: No Status: Chronic (17) Nicotine dependence Current Visit: Yes Status: Chronic Qualifiers: Nicotine product type: cigarettes Substance use status: uncomplicated Qualified Code(s): F17.210 - Nicotine dependence, cigarettes, uncomplicated (18) PTSD (post-traumatic stress disorder) Current Visit: Yes Status: Chronic (19) Schizoaffective disorder Current Visit: No Status: Chronic Qualifiers: Schizoaffective disorder type: depressive Qualified Code(s): F25.1 - Schizoaffective disorder, depressive type (20) Substance induced mood disorder Current Visit: No Status: Chronic (21) Use of cane as ambulatory aid Current Visit: No Status: Chronic (22) Spinal stenosis, lumbosacral region Current Visit: No Status: Resolved (23) History of positive PPD Current Visit: No Status: Ruled-out - AMA Did Patient Leave Against Medical Advice: No
--- NOTE | 2019-09-05 09:26 | PN ---
[facility] Progress Note Note: Patient is scheduled for discharge today. Scripts for 30 days supply of medications(Wellbutrin XL 300 mg/day, Risperdal 2 mg/hs, Cogentin 0.5 mg/hs, Remeron 7.5 mg/hs) [facility] [place] [address]
[2019-09-05] MEDS: ATENOLOL 25 MG TABLET (FP) PO SCH (10:04)
[2019-09-05] MEDS: PRENATAL VITAMINS W/ FOLIC ACID TABLET (FP) PO SCH (10:04)
[2019-09-05] MEDS: ASPIRIN COATED 81 MG TABLET.EC PO SCH (10:05)
[2019-09-05] MEDS: amLODIPine BESYLATE 10 MG TABLET (FP) PO SCH (10:05)
== END 2019-09-05 10:15 | disposition other institution (70) | DRG 774 ==
LOC: YASAS 13:51 → Y6N 18:34
PROVIDERS: ADMIT Allergy & Immunology; ATTEND Allergy & Immunology
PROC: HZ2ZZZZ Detoxification Services for Substance Abuse Treatment (ICD-10-PCS; principal; 2019-08-31)
DX: F10.230 Alcohol dependence with withdrawal, uncomplicated (principal); F14.20 Cocaine dependence, uncomplicated; F12.20 Cannabis dependence, uncomplicated; F17.210 Nicotine dependence, cigarettes, uncomplicated; F19.280 Other psychoactive substance dependence with psychoactive substance-induced anxiety disorder; F19.282 Other psychoactive substance dependence with psychoactive substance-induced sleep disorder; F19.24 Other psychoactive substance dependence with psychoactive substance-induced mood disorder; F25.1 Schizoaffective disorder, depressive type; F43.10 Post-traumatic stress disorder, unspecified; G47.00 Insomnia, unspecified; I10 Essential (primary) hypertension; E11.9 Type 2 diabetes mellitus without complications; Z79.84 Long term (current) use of oral hypoglycemic drugs; M12.9 Arthropathy, unspecified; M54.5 Low back pain; G89.29 Other chronic pain; Z87.39 Personal history of other diseases of the musculoskeletal system and connective tissue; Z99.89 Dependence on other enabling machines and devices; Z88.8 Allergy status to other drugs, medicaments and biological substances
CPT/HCPCS: 36415; 80053; 81003; 82947; 82962; 85027; 86780; U0003

== ENCOUNTER 2019-10-26 12:09 | Inpatient (IN) | payer OTHER ==
--- NOTE | 2019-10-26 15:43 | BHS.RME ---
Substance Use & Tx History - Substance Use History Alcohol Substance amount: 1 pint of shisky/3 of 12 ozs of beer Frequency of use: Daily Substance route: Oral Date of Last Use: 10/25/19 Cocaine- Powder Substance amount: 50$ Frequency of use: Daily Substance route: Inhalation (ex: sniffing or snorting) Date of Last Use: 10/25/19 Marijuana/Hashish Substance amount: 50$ Frequency of use: Daily Substance route: Smoking Date of Last Use: 10/25/19 - Last Treatment Where was last treatment: Detox Physical/Psych/Mental Status - Behavior Eye Contact: Normal Other Behaviors: Mannerisms - Cooperativeness Cooperativeness: Cooperative - Thinking Thought Processes: Logical Thought content: Future oriented - Physical Health Problems Is patient presently having any pain?: No Does patient presently have any injuries (include location): No Does patient currently have a fever: No CIWA Nausea/Vomitin Muscle Tremors: 3 Anxiety: 3 Agitation: 3 Paroxysmal Sweats: 1-Minimal Palms Moist Orientation: 0-Oriented Tacttile Disturbances: 1-Very Mild Itch/Numbness Auditory Disturbances: 0-None Visual Disturbances: 0-None Headache: 2-Mild CIWA-Ar Total Score: 15
--- NOTE | 2019-10-26 15:55 | HP ---
CIWA Score Nausea/Vomitin Muscle Tremors: 3 Anxiety: 3 Agitation: 3 Paroxysmal Sweats: 1-Minimal Palms Moist Orientation: 0-Oriented Tacttile Disturbances: 1-Very Mild Itch/Numbness Auditory Disturbances: 0-None Visual Disturbances: 0-None Headache: 2-Mild CIWA-Ar Total Score: 15 - Admission Criteria OASAS Guidelines: Admission for Medically Managed Detox: Requires at least one of the followin. CIWA greater than 12 2. Seizures within the past 24 hours 3. Delirium tremens within the past 24 hours 4. Hallucinations within the past 24 hours 5. Acute intervention needed for co occurring medical disorder 6. Acute intervention needed for co occurring psychiatric disorder 7. Severe withdrawal that cannot be handled at a lower level of care (continued vomiting, continued diarrhea, abnormal vital signs) requiring intravenous medication and/or fluids 8. 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 Cardiovascular: Yes: HTN Gastrointestinal: Yes: GERD Psych: Yes: Other (schizaffective disorder) Musculoskeletal: Yes: Chronic low back pain (spinal sthenosis) Endocrine: Yes: Diabetes Mellitus - Past Surgical History Additional Past Surgical History: right hip replacement 2003 right eye floor of orbit 1996 left wrist fx surgery in 1974 - Smoking History Smoking history: Current every day smoker Have you smoked in the past 12 months: Yes Aproximately how many cigarettes per day: 20 - Alcohol/Substance Use Hx Alcohol Use: Yes History of Substance Use: reports: Cocaine Date of Last Use: 08/31/19 - Social History ADL: Support Services Occupation: on sisability History of Recent Travel: No Admission ROS S - HPI Chief Complaint: i need help to stop drinking alcohol,cocaine and marijuana Allergies/Adverse Reactions: Allergies Allergy/AdvReac Type Severity Reaction Status Date / Time enalapril [Enalapril] Allergy Severe Swelling Verified 10/26/19 16:50 levofloxacin [From Levaquin] Allergy Severe Hives Verified 10/26/19 16:50 haloperidol [From Haldol] AdvReac Severe stiffness Verified 10/26/19 16:50 haloperidol lactate AdvReac Severe sfiffness Verified 10/26/19 16:50 [From [facility]] History of Present Illness: this 64 years old male with alcohol,cocaine and marijuana dependence seeking detox,withdrawal symptom, multiple admissions in detox last 08/22/19 to 09/05/19 relapsing 1 month after history of hypertension,type 2 dm chronic back pain spinal stenosis history of right hip surgery in 2003 fx right orbit in 1996 fx left wrist in 1974 longest sobriety 2 and a half years ambulation with cane but loss the cane plan for rehab after detox Exam Limitations: No Limitations - Ebola screening Have you traveled outside of the country in the last 21 days: No Have you had contact with anyone from an Ebola affected area: No Have you been sick,other than usual withdrawal symptoms: No Do you have a fever: No - Review of Systems Constitutional: Loss of Appetite, Malaise, Night Sweats, Changes in sleep, Weakness, Unintentional Wgt. Loss EENT: reports: Nose Congestion Respiratory: reports: No Symptoms reported Cardiac: reports: No Symptoms Reported GI: reports: Diarrhea, Nausea, Poor Appetite, Vomiting, Abdominal cramping : reports: No Symptoms Reported Musculoskeletal: reports: Back Pain, Muscle Pain, Other (chonic low back pain) Integumentary: reports: Dryness Neuro: reports: Headache, Tremors Endocrine: reports: No Symptoms Reported Hematology: reports: No Symptoms Reported Psychiatric: reports: No Sypmtoms Reported, Judgement Intact, Mood/Affect Appropiate, Orientated x3, other (schizoaffective disorder,depressin) Other Systems: Reviewed and Negative Patient History - Patient Medical History Hx Anemia: Yes Hx Asthma: No Hx Chronic Obstructive Pulmonary Disease (COPD): No Hx Cancer: No Hx Cardiac Disorders: No Hx Congestive Heart Failure: No Hx Hypertension: Yes (on med) Hx Hypercholesterolemia: Yes (no med) Hx Pacemaker: No HX Cerebrovascular Accident: No Hx Seizures: No Hx Dementia: No Hx Diabetes: Yes (on metformin 500 mgs po bid) Hx Gastrointestinal Disorders: No Hx Liver Disease: No Hx Genitourinary Disorders: No Hx Sexually Transmitted Disorders: No Hx Renal Disease (ESRD): No Hx Thyroid Disease: No Hx Human Immunodeficiency Virus (HIV): No Hx Hepatitis C: No (DENIES) Hx Depression: Yes (Pt. reports dx of Schizoaffective D/O; Bipolar type, PTSD, & Insomnia) Hx Suicide Attempt: No Hx Bipolar Disorder: No Hx Schizophrenia: Yes (Pt. reports dx of Schizoaffective D/O; Bipolar type, PTSD, & Insomnia) - Patient Surgical History Past Surgical History: Yes Hx Neurologic Surgery: No Hx Cataract Extraction: No Hx Cardiac Surgery: No Hx Lung Surgery: No Hx Breast Surgery: No Hx Breast Biopsy: No Hx Abdominal Surgery: No Hx Appendectomy: No Hx Cholecystectomy: No Hx Genitourinary Surgery: No Hx Section: No Hx Orthopedic Surgery: Yes (right hip replacement in 04/2003 at [facility] for avascular necrosis) Other Surgical History: history of fracture of right foot in 1989 Anesthesia Reaction: No - PPD History Results: cxr(-)09/03/2018 - Smoking Cessation Smoking history: Current every day smoker Have you smoked in the past 12 months: Yes Aproximately how many cigarettes per day: 20 Cigars Per Day: 0 Hx Chewing Tobacco Use: No Initiated information on smoking cessation: Yes 'Breaking Loose' booklet given: 10/26/19 - Substance & Tx. History Hx Alcohol Use: Yes Hx Substance Use: Yes Substance Use Type: Alcohol, Cocaine, Marijuana Hx Substance Use Treatment: Yes ([facility] 08/31/19 to 09/05/19) - Substances abused Alcohol Frequency: Daily Amount used: 1 pint of whisky/3 of 12 ozs of beer Age of first use: 15 Date of last use: 10/25/19 Cocaine Substance route: Inhalation Frequency: Daily Amount used: 50$ Age of first use: 20 Date of last use: 10/25/19 Marijuana/Hashish Substance route: Smoking Frequency: Daily Amount used: 50$ Age of first use: 20 Date of last use: 10/25/19 Admission Physical Exam S - Vital Signs Vital Signs: bp 166/99,p78,r18,t96.8,rui is 0.000,pulse oximeter 99%+ - Physical General Appearance: Yes: Moderate Distress, Tremorous, Irritable, Sweating, Anxious HEENTM: Yes: Normal ENT Inspection, WILLY, Pharynx Normal, Orbits (surgery in 1996) Respiratory: Yes: Within Normal Limits, Lungs Clear, Normal Breath Sounds Neck: Yes: Within Normal Limits, Supple, Trachea in good position Breast: Yes: Within Normal Limits Cardiology: Yes: Within Normal Limits, Regular Rhythm, Regular Rate, S1, S2 Abdominal: Yes: Within Normal Limits, Normal Bowel Sounds, Non Tender, Flat, Soft Genitourinary: Yes: Within Normal Limits Back: Yes: Muscle Spasm Musculoskeletal: Yes: Back pain, Joint Stiffness (s/p right hip replacement in 2003), Muscle Pain Extremities: Yes: Tremors Neurological: Yes: 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 (2) Back pain Current Visit: No Status: Chronic Qualifiers: Back pain location: low back pain Chronicity: chronic Back pain laterality: midline Sciatica presence: without sciatica Qualified Code(s): M54.5 - Low back pain; G89.29 - Other chronic pain (3) Cannabis dependence, uncomplicated Current Visit: No Status: Chronic Comment: . (4) Cocaine dependence Current Visit: No Status: Chronic Qualifiers: Substance use status: uncomplicated Qualified Code(s): F14.20 - Cocaine dependence, uncomplicated Comment: . 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 (8) Schizoaffective disorder Current Visit: No Status: Chronic Qualifiers: Schizoaffective disorder type: depressive Qualified Code(s): F25.1 - Schizoaffective disorder, depressive type Comment: . (9) Use of cane as ambulatory aid Current Visit: No Status: Chronic (10) Spinal stenosis, lumbosacral region Current Visit: No Status: Resolved (11) History of positive PPD Current Visit: No Status: Ruled-out Comment: Last CXR 02/2019 Cleared for Admission [facility] - Detox or Rehab Detox Regimen/Protocol: Librium Breathalyzer - Breathalyzer Breathalyzer: 0 Urine Drug Screen - Test Device Lot number: [id number] Expiration date: 10/11/20 - Control Is test valid?: Yes - Results Drug screen NEGATIVE: No Urine drug screen results: JESUS ALBERTO-Cocaine Inpatient Rehab Admission - Rehab Decision to Admit Inpatient rehab admission?: No
[2019-10-26] MEDS ORDERED: MENTHOL/PHENOL 1 EACH UD MM PRN (16:18)
[2019-10-26] MEDS ORDERED: ONDANSETRON *ODT* 4 MG TABLET SL PRN (16:18)
[2019-10-26] MEDS ORDERED: MAGNESIUM CITRATE 300 ML BOTTLE PO PRN (16:18)
[2019-10-26] MEDS ORDERED: MAG HYDROX/AL HYDROX/SIMETH 30 ML UNIT-DOSE CUP PO PRN (16:18)
[2019-10-26] MEDS ORDERED: MAGNESIUM HYDROX 2400MG/30ML ORAL SUSPENSION 30 ML CUP PO PRN (16:18)
[2019-10-26] MEDS ORDERED: BISMUTH SUBSALICYLATE 524 MG/30 ML UD PO PRN (16:18)
[2019-10-26] MEDS ORDERED: IBUPROFEN 400 MG TABLET (FP) PO PRN (16:18)
[2019-10-26] MEDS ORDERED: ACETAMINOPHEN 325 MG TABLET (FP) PO PRN ×2 (16:18)
[2019-10-26] MEDS ORDERED: chlordiazePOXIDE HCL 25 MG CAPSULE PO PRN (16:18)
[2019-10-26] MEDS ORDERED: METHOCARBAMOL 500 MG TABLET PO PRN (16:18)
[2019-10-26 17:01] VITALS: BMI 29.3
[2019-10-26] MEDS: NICOTINE POLACRILEX 4 MG GUM BUC PRN ×2 (19:09→23:18)
[2019-10-26] MEDS: hydrOXYzine PAMOATE 25 MG CAPSULE (FP) PO SCH ×2 (19:09→23:15)
[2019-10-26] MEDS: ATENOLOL 25 MG TABLET (FP) PO SCH (23:14)
[2019-10-26] MEDS: chlordiazePOXIDE HCL 25 MG CAPSULE PO SCH (23:14)
[2019-10-26] MEDS: ATORVASTATIN CA 20 MG TABLET (FP) PO SCH (23:14)
[2019-10-26] MEDS: THIAMINE HCL 100 MG TABLET (FP) PO SCH (23:15)
[2019-10-26] MEDS: MELATONIN 5 MG TABLETS PO SCH (23:15)
[2019-10-27] MEDS: LIDOCAINE PATCH REMOVAL MC SCH ×2 (00:57→22:41)
[2019-10-27] MEDS: chlordiazePOXIDE HCL 25 MG CAPSULE PO SCH ×4 (05:13→22:37)
[2019-10-27] MEDS: hydrOXYzine PAMOATE 25 MG CAPSULE (FP) PO SCH ×5 (05:14→22:39)
[2019-10-27] MEDS: metFORMIN HCL 500 MG TABLET (FP) PO SCH ×2 (06:37→18:23)
--- NOTE | 2019-10-27 09:10 | CONSULT ---
[facility] Psychiatric Consult - Data Date of interview: 10/27/19 Admission source: Self-referred Identifying data: Saran is a 64 years old single Black male, unemployed receiving SSI/[employer] pension, domiciled seeking detox treatment for alcohol, cocaine and cannabis Substance Abuse History: Reports history of alcohol, cocaine and marijuana use use. Refer to addiction counselor's summary for further information Medical History: Significant for hypertension, dyslipidemia, type 2 diabetes mellitus, angina pectoris, spinal stenosis, lower back pain, arthritis L3-L4, history of prophylactic treatment for TB with [facility] (2004), right hip replacement for avascular necrosis (2003) and fracture right fibula in 1996. Smokes 10 cigarettes daily Psychiatric History: Patient is known for multiple previous admissions to this facility. He reports onset of psychiatric disturbances in 2003 when he was admitted to [facility] and diagnosed with Schizoaffective Disorder and PTSD. Reports multiple psychiatric admissions to various institutions including to [facility], [facility], [facility], [facility], [facility] in [facility], [facility] in [place] and most recently the [facility] from June-July 2017. Reports receiving [facility] treatment at the [facility] and he is prescribed Risperdal 2 mg/hs, Remeron 7.5 mg/hs, Wellbutrin XL 300 mg/day and Cogentin 0.5 mg/hs. During his recent admission to this facility he was seen by va underwriter on 09/01/19 and he was prescribed Wellbutrin XL 300 mg/day, Risperdal 2 mg/hs, Remeron 7.5 mg/hs and Cogentin 0.5 mg/hs. Reportedly he has had several suicide attempts, most recently in January 2017, via deliberate self exposure to oncoming traffic. At present, denies experienicing psychotic, manic symptoms, S/H ideations. However, reports feeling mildly depressed and sleeping poorly. Requests to resume medications Physical/Sexual Abuse/Trauma History: Patient denies history of emotional, sexual or physical abuse as well as DV relationship. 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 Served in [employer], [employer] and [place] in the . No report of flashbacks or nightmares. Additional Comment: Reports history of multiple previous arrests including 3 felony convictions. Reports being off parole for years Mental Status Exam - Mental Status Exam Alert and Oriented to: Time, Place, Person Cognitive Function: Fair Patient Appearance: Well Groomed Mood: Anxious Affect: Appropriate Patient Behavior: Cooperative Speech Pattern: Clear Voice Loudness: Normal Thought Process: Intact Hallucinations: Denies Suicidal Ideation: Denies Homicidal Ideation: Denies Insight/Judgement: Poor Sleep: Poorly Appetite: Fair Muscle strength/Tone: Normal Gait/Station: Normal Psychiatric Findings - Problem List ([place] 1, 2,3) (1) PTSD (post-traumatic stress disorder) Current Visit: No Status: Chronic Comment: . By history. (2) Schizoaffective disorder Current Visit: No Status: Chronic Qualifiers: Schizoaffective disorder type: depressive Qualified Code(s): F25.1 - Schizoaffective disorder, depressive type Comment: .
[2019-10-27] MEDS: PRENATAL VITAMINS W/ FOLIC ACID TABLET (FP) PO SCH (10:09)
[2019-10-27] MEDS: LIDOCAINE 5% TOPICAL PATCH TP SCH (10:09)
[2019-10-27] MEDS: ATENOLOL 25 MG TABLET (FP) PO SCH ×2 (10:09→22:37)
[2019-10-27] MEDS: amLODIPine BESYLATE 10 MG TABLET (FP) PO SCH (10:10)
[2019-10-27] MEDS: HYDROCHLOROTHIAZIDE 25 MG TABLET (FP) PO SCH (10:10)
[2019-10-27] MEDS: NICOTINE POLACRILEX 4 MG GUM BUC PRN ×4 (10:10→22:41)
[2019-10-27] MEDS: ASPIRIN COATED 81 MG TABLET.EC PO SCH (10:10)
[2019-10-27 10:55] LABS: HEMATOCRIT 41.9 % (35.4-49); MCH 33.5 pg (25.7-33.7); MCHC 33.3 g/dl (32.0-35.9); MEAN CELL VOLUME 100.6 fl (80-96); MEAN PLT VOLUME 8.5 fl (7.5-11.1); PLATELET COUNT 244 K/MM3 (134-434); RBC 4.16 M/mm3 (4.00-5.60); RDW 14.1 % (11.9-15.9); WHITE BLOOD COUNT 3.6 K/mm3 (4.0-10.0)
[2019-10-27 11:14] LABS: ALBUMIN 3.7 g/dl (3.4-5.0); CALCIUM 9.7 mg/dL (8.5-10.1); POTASSIUM 4.3 mmol/L (3.5-5.1)
[2019-10-27 11:18] LABS: BILIRUBIN,TOTAL 0.7 mg/dL (0.2-1); CREATININE 1.2 mg/dL (0.55-1.3); TOT PROT 8.3 g/dl (6.4-8.2)
--- NOTE | 2019-10-27 12:09 | PN ---
[facility] CIWA - CIWA Score Nausea/Vomitin-Mild Nausea/No Vomiting Muscle Tremors: 2 Anxiety: 2 Agitation: 2 Paroxysmal Sweats: No Perspiration Orientation: 0-Oriented Tacttile Disturbances: 1-Very Mild Itch/Numbness Auditory Disturbances: 0-None Visual Disturbances: 0-None Headache: 2-Mild CIWA-Ar Total Score: 10 S Progress Note (SOAP) Subjective: alert,irritable,anxious,interrupted sleep,aching pain,nausea Objective: 10/27/19 17:42 Vital Signs Temperature 97.7 F 10/27/19 16:21 Pulse Rate 57 L 10/27/19 16:21 Respiratory Rate 18 10/27/19 16:21 Blood Pressure 108/66 10/27/19 16:21 O2 Sat by Pulse Oximetry (%) 100 10/27/19 13:10 Laboratory Last Values WBC 3.6 K/mm3 (4.0-10.0) L 10/27/19 07:40 RBC 4.16 M/mm3 (4.00-5.60) 10/27/19 07:40 Hgb 14.0 GM/dL (11.7-16.9) 10/27/19 07:40 Hct 41.9 % (35.4-49) 10/27/19 07:40 MCV 100.6 fl (80-96) H 10/27/19 07:40 MCH 33.5 pg (25.7-33.7) 10/27/19 07:40 MCHC 33.3 g/dl (32.0-35.9) 10/27/19 07:40 RDW 14.1 % (11.9-15.9) 10/27/19 07:40 Plt Count 244 K/MM3 (134-434) D 10/27/19 07:40 MPV 8.5 fl (7.5-11.1) 10/27/19 07:40 Sodium 138 mmol/L (136-145) 10/27/19 07:40 Potassium 4.3 mmol/L (3.5-5.1) 10/27/19 07:40 Chloride 101 mmol/L (98-107) 10/27/19 07:40 Carbon Dioxide 32 mmol/L (21-32) 10/27/19 07:40 Anion Gap 5 MMOL/L (8-16) L 10/27/19 07:40 BUN 13.0 mg/dL (7-18) 10/27/19 07:40 Creatinine 1.2 mg/dL (0.55-1.3) 10/27/19 07:40 Est GFR (CKD-EPI)AfAm 74.66 10/27/19 07:40 Est GFR (CKD-EPI)NonAf 64.42 10/27/19 07:40 POC Glucometer 119 UNITS (80-120) 10/27/19 16:28 Random Glucose 137 mg/dL (74-106) H 10/27/19 07:40 Calcium 9.7 mg/dL (8.5-10.1) 10/27/19 07:40 Total Bilirubin 0.7 mg/dL (0.2-1) 10/27/19 07:40 AST 14 U/L (15-37) L 10/27/19 07:40 ALT 26 U/L (13-61) 10/27/19 07:40 Alkaline Phosphatase 63 U/L (45-117) 10/27/19 07:40 Total Protein 8.3 g/dl (6.4-8.2) H 10/27/19 07:40 Albumin 3.7 g/dl (3.4-5.0) 10/27/19 07:40 Syphilis Serology Non-reactive (NONREACTIVE) 10/27/19 07:40 Assessment: 10/27/19 17:43 withdrawal symptom Plan: continue detox librium regimen,chest x ray report noted
[2019-10-27] MEDS: risperiDONE 2 MG TABLET PO SCH (22:37)
[2019-10-27] MEDS: BENZTROPINE MESYLATE 1 MG TABLET PO SCH (22:37)
[2019-10-27] MEDS: ATORVASTATIN CA 20 MG TABLET (FP) PO SCH (22:37)
[2019-10-27] MEDS: MELATONIN 5 MG TABLETS PO SCH (22:37)
[2019-10-27] MEDS: MIRTAZAPINE 15 MG TABLET (FP) PO SCH (22:37)
[2019-10-27] MEDS: THIAMINE HCL 100 MG TABLET (FP) PO SCH (22:38)
[2019-10-28] MEDS: chlordiazePOXIDE HCL 25 MG CAPSULE PO SCH ×4 (05:27→22:36)
[2019-10-28] MEDS: hydrOXYzine PAMOATE 25 MG CAPSULE (FP) PO SCH ×5 (05:27→22:35)
[2019-10-28] MEDS: metFORMIN HCL 500 MG TABLET (FP) PO SCH ×2 (07:57→17:48)
[2019-10-28] MEDS: ASPIRIN COATED 81 MG TABLET.EC PO SCH (10:14)
[2019-10-28] MEDS: PRENATAL VITAMINS W/ FOLIC ACID TABLET (FP) PO SCH (10:14)
[2019-10-28] MEDS: ATENOLOL 25 MG TABLET (FP) PO SCH ×2 (10:15→22:38)
[2019-10-28] MEDS: amLODIPine BESYLATE 10 MG TABLET (FP) PO SCH (10:15)
[2019-10-28] MEDS: LIDOCAINE 5% TOPICAL PATCH TP SCH (10:15)
[2019-10-28] MEDS: HYDROCHLOROTHIAZIDE 25 MG TABLET (FP) PO SCH (10:15)
[2019-10-28] MEDS: NICOTINE POLACRILEX 4 MG GUM BUC PRN ×3 (10:16→17:50)
[2019-10-28 10:34] LABS: PH,URINE 6.5 (5.0-8.0); URINE APPEARANCE CLEAR; URINE BILIRUBIN NEGATIVE (NEGATIVE); URINE COLOR YELLOW; URINE GLUCOSE (UA) NEGATIVE (NEGATIVE); URINE KETONE NEGATIVE (NEGATIVE); URINE LEUK ESTERASE NEGATIVE (NEGATIVE); URINE NITRITE NEGATIVE (NEGATIVE); URINE PROTEIN NEGATIVE (NEGATIVE); URINE UROBILINOGEN 0.2 mg/dL (0.2-1.0)
--- NOTE | 2019-10-28 10:51 | PN ---
[facility] CIWA - CIWA Score Nausea/Vomitin-Mild Nausea/No Vomiting Muscle Tremors: 2 Anxiety: 2 Agitation: 1-Slight > Activity Paroxysmal Sweats: No Perspiration Orientation: 0-Oriented Tacttile Disturbances: 0-None Auditory Disturbances: 0-None Visual Disturbances: 0-None Headache: 1-Very Mild CIWA-Ar Total Score: 7 S Progress Note (SOAP) Subjective: alert,irritable,anxious,interrupted sleep,aching pain Objective: 10/28/19 15:32 Vital Signs Temperature 97.5 F L 10/28/19 12:39 Pulse Rate 64 10/28/19 12:39 Respiratory Rate 20 10/28/19 12:39 Blood Pressure 122/58 L 10/28/19 12:39 O2 Sat by Pulse Oximetry (%) 100 10/28/19 12:39 10/28/19 15:33 Laboratory Last Values WBC 3.6 K/mm3 (4.0-10.0) L 10/27/19 07:40 RBC 4.16 M/mm3 (4.00-5.60) 10/27/19 07:40 Hgb 14.0 GM/dL (11.7-16.9) 10/27/19 07:40 Hct 41.9 % (35.4-49) 10/27/19 07:40 MCV 100.6 fl (80-96) H 10/27/19 07:40 MCH 33.5 pg (25.7-33.7) 10/27/19 07:40 MCHC 33.3 g/dl (32.0-35.9) 10/27/19 07:40 RDW 14.1 % (11.9-15.9) 10/27/19 07:40 Plt Count 244 K/MM3 (134-434) D 10/27/19 07:40 MPV 8.5 fl (7.5-11.1) 10/27/19 07:40 Sodium 138 mmol/L (136-145) 10/27/19 07:40 Potassium 4.3 mmol/L (3.5-5.1) 10/27/19 07:40 Chloride 101 mmol/L (98-107) 10/27/19 07:40 Carbon Dioxide 32 mmol/L (21-32) 10/27/19 07:40 Anion Gap 5 MMOL/L (8-16) L 10/27/19 07:40 BUN 13.0 mg/dL (7-18) 10/27/19 07:40 Creatinine 1.2 mg/dL (0.55-1.3) 10/27/19 07:40 Est GFR (CKD-EPI)AfAm 74.66 10/27/19 07:40 Est GFR (CKD-EPI)NonAf 64.42 10/27/19 07:40 POC Glucometer 102 UNITS (80-120) 10/28/19 11:22 Random Glucose 137 mg/dL (74-106) H 10/27/19 07:40 Calcium 9.7 mg/dL (8.5-10.1) 10/27/19 07:40 Total Bilirubin 0.7 mg/dL (0.2-1) 10/27/19 07:40 AST 14 U/L (15-37) L 10/27/19 07:40 ALT 26 U/L (13-61) 10/27/19 07:40 Alkaline Phosphatase 63 U/L (45-117) 10/27/19 07:40 Total Protein 8.3 g/dl (6.4-8.2) H 10/27/19 07:40 Albumin 3.7 g/dl (3.4-5.0) 10/27/19 07:40 Urine Color Yellow 10/28/19 08:00 Urine Appearance Clear 10/28/19 08:00 Urine pH 6.5 (5.0-8.0) 10/28/19 08:00 Ur Specific [place] 1.019 (1.010-1.035) 10/28/19 08:00 Urine Protein Negative (NEGATIVE) 10/28/19 08:00 Urine Glucose (UA) Negative (NEGATIVE) 10/28/19 08:00 Urine Ketones Negative (NEGATIVE) 10/28/19 08:00 Urine Blood Negative (NEGATIVE) 10/28/19 08:00 Urine Nitrite Negative (NEGATIVE) 10/28/19 08:00 Urine Bilirubin Negative (NEGATIVE) 10/28/19 08:00 Urine Urobilinogen 0.2 mg/dL (0.2-1.0) 10/28/19 08:00 Ur Leukocyte Esterase Negative (NEGATIVE) 10/28/19 08:00 Syphilis Serology Non-reactive (NONREACTIVE) 10/27/19 07:40 COVID-19 (ALFREDO) Not detected (Not Detected) 10/26/19 17:15 Assessment: 10/28/19 15:33 withdrawal symptom Plan: continue detox librium regimen,bgm monitoring bid ac with metformin 500 mgs po bid ac
[2019-10-28] MEDS: THIAMINE HCL 100 MG TABLET (FP) PO SCH (22:34)
[2019-10-28] MEDS: ATORVASTATIN CA 20 MG TABLET (FP) PO SCH (22:34)
[2019-10-28] MEDS: MIRTAZAPINE 15 MG TABLET (FP) PO SCH (22:35)
[2019-10-28] MEDS: BENZTROPINE MESYLATE 1 MG TABLET PO SCH (22:35)
[2019-10-28] MEDS: risperiDONE 2 MG TABLET PO SCH (22:35)
[2019-10-28] MEDS: LIDOCAINE PATCH REMOVAL MC SCH (22:38)
[2019-10-28] MEDS: MELATONIN 5 MG TABLETS PO SCH (22:38)
[2019-10-29] MEDS ORDERED: chlordiazePOXIDE HCL 10 MG CAPSULE PO PRN
[2019-10-29] MEDS: chlordiazePOXIDE HCL 10 MG CAPSULE PO SCH ×4 (05:29→22:24)
[2019-10-29] MEDS: hydrOXYzine PAMOATE 25 MG CAPSULE (FP) PO SCH ×5 (05:29→22:25)
[2019-10-29] MEDS: NICOTINE POLACRILEX 4 MG GUM BUC PRN ×6 (05:30→22:26)
[2019-10-29] MEDS: metFORMIN HCL 500 MG TABLET (FP) PO SCH ×2 (06:33→16:47)
--- NOTE | 2019-10-29 09:44 | PN ---
[facility] CIWA - CIWA Score Nausea/Vomitin-No Nausea/No Vomiting Muscle Tremors: 1-None Visible, but [place] Anxiety: 1-Mildly Anxious Agitation: 1-Slight > Activity Paroxysmal Sweats: No Perspiration Orientation: 0-Oriented Tacttile Disturbances: 0-None Auditory Disturbances: 0-None Visual Disturbances: 0-None Headache: 1-Very Mild CIWA-Ar Total Score: 4 [facility] Progress Note (SOAP) Subjective: alert,irritable,anxious,interrupted sleep Objective: 10/29/19 14:39 Vital Signs Temperature 97.1 F L 10/29/19 12:37 Pulse Rate 64 10/29/19 12:37 Respiratory Rate 18 10/29/19 12:37 Blood Pressure 143/79 10/29/19 12:37 O2 Sat by Pulse Oximetry (%) 100 10/29/19 12:37 Assessment: 10/29/19 14:40 withdrawal symptom but less Plan: continue detox librium regimen,discharge in am to [facility]
[2019-10-29] MEDS: ASPIRIN COATED 81 MG TABLET.EC PO SCH (10:01)
[2019-10-29] MEDS: HYDROCHLOROTHIAZIDE 25 MG TABLET (FP) PO SCH (10:01)
[2019-10-29] MEDS: amLODIPine BESYLATE 10 MG TABLET (FP) PO SCH (10:01)
[2019-10-29] MEDS: PRENATAL VITAMINS W/ FOLIC ACID TABLET (FP) PO SCH (10:01)
[2019-10-29] MEDS: ATENOLOL 25 MG TABLET (FP) PO SCH ×2 (10:02→22:25)
[2019-10-29] MEDS: LIDOCAINE 5% TOPICAL PATCH TP SCH (10:04)
[2019-10-29] MEDS: BENZTROPINE MESYLATE 1 MG TABLET PO SCH (22:25)
[2019-10-29] MEDS: MIRTAZAPINE 15 MG TABLET (FP) PO SCH (22:25)
[2019-10-29] MEDS: risperiDONE 2 MG TABLET PO SCH (22:25)
[2019-10-29] MEDS: THIAMINE HCL 100 MG TABLET (FP) PO SCH (22:25)
[2019-10-29] MEDS: MELATONIN 5 MG TABLETS PO SCH (22:25)
[2019-10-29] MEDS: ATORVASTATIN CA 20 MG TABLET (FP) PO SCH (22:25)
[2019-10-29] MEDS: LIDOCAINE PATCH REMOVAL MC SCH (22:26)
[2019-10-30] MEDS ORDERED: chlordiazePOXIDE HCL 10 MG CAPSULE PO SCH (05:00)
[2019-10-30] MEDS: hydrOXYzine PAMOATE 25 MG CAPSULE (FP) PO SCH ×2 (05:21→10:34)
[2019-10-30] MEDS: metFORMIN HCL 500 MG TABLET (FP) PO SCH (07:14)
--- NOTE | 2019-10-30 08:51 | PN ---
[facility] CIWA - CIWA Score Nausea/Vomitin-No Nausea/No Vomiting Muscle Tremors: None Anxiety: 1-Mildly Anxious Agitation: 0-Normal Activity Paroxysmal Sweats: No Perspiration Orientation: 0-Oriented Tacttile Disturbances: 0-None Auditory Disturbances: 0-None Visual Disturbances: 0-None Headache: 0-None Present CIWA-Ar Total Score: 1 S Progress Note (SOAP) Subjective: alert,no complaint Objective: 10/30/19 10:41 Vital Signs Temperature 97.3 F L 10/30/19 10:27 Pulse Rate 74 10/30/19 10:27 Respiratory Rate 18 10/30/19 10:27 Blood Pressure 149/80 10/30/19 10:27 O2 Sat by Pulse Oximetry (%) 97 10/30/19 06:14 Assessment: 10/30/19 10:42 detox completed,no withdrawal Plan: discharge today,follow up with after care program [facility] as arrangement
--- NOTE | 2019-10-30 08:51 | DS ---
[facility] Summary Admission Date: 10/26/19 Discharge Date: 10/30/19 - History Present History: Alcohol Dependence, Cannabis Dependence, Cocaine Dependence Additional Comments: alert,oriented xx 3 ambulation on the unit lung clear on auscultation bilaterally abdomen soft,no distension,no pain or tenderness no edema of legs detox completed,no withdrawal symptom stable for discharge today follow up with after care program as arrangement [facility] total time spending 35 minutes Pertinent Past History: hypertension type dm low back pain lumbar stenosis ambulation with cane schizoaffective disorder ptsd - Physical Exam Results Vital Signs: Vital Signs Temperature 97.2 F L 10/30/19 06:14 Pulse Rate 54 L 10/30/19 06:14 Respiratory Rate 18 10/30/19 06:14 Blood Pressure 127/74 10/30/19 06:14 O2 Sat by Pulse Oximetry (%) 97 10/30/19 06:14 Pertinent Admission Physical Exam Findings: withdrawal sing and symptom Laboratory Last Values WBC 3.6 K/mm3 (4.0-10.0) L 10/27/19 07:40 RBC 4.16 M/mm3 (4.00-5.60) 10/27/19 07:40 Hgb 14.0 GM/dL (11.7-16.9) 10/27/19 07:40 Hct 41.9 % (35.4-49) 10/27/19 07:40 MCV 100.6 fl (80-96) H 10/27/19 07:40 MCH 33.5 pg (25.7-33.7) 10/27/19 07:40 MCHC 33.3 g/dl (32.0-35.9) 10/27/19 07:40 RDW 14.1 % (11.9-15.9) 10/27/19 07:40 Plt Count 244 K/MM3 (134-434) D 10/27/19 07:40 MPV 8.5 fl (7.5-11.1) 10/27/19 07:40 Sodium 138 mmol/L (136-145) 10/27/19 07:40 Potassium 4.3 mmol/L (3.5-5.1) 10/27/19 07:40 Chloride 101 mmol/L (98-107) 10/27/19 07:40 Carbon Dioxide 32 mmol/L (21-32) 10/27/19 07:40 Anion Gap 5 MMOL/L (8-16) L 10/27/19 07:40 BUN 13.0 mg/dL (7-18) 10/27/19 07:40 Creatinine 1.2 mg/dL (0.55-1.3) 10/27/19 07:40 Est GFR (CKD-EPI)AfAm 74.66 10/27/19 07:40 Est GFR (CKD-EPI)NonAf 64.42 10/27/19 07:40 POC Glucometer 106 UNITS (80-120) 10/30/19 05:22 Random Glucose 137 mg/dL (74-106) H 10/27/19 07:40 Calcium 9.7 mg/dL (8.5-10.1) 10/27/19 07:40 Total Bilirubin 0.7 mg/dL (0.2-1) 10/27/19 07:40 AST 14 U/L (15-37) L 10/27/19 07:40 ALT 26 U/L (13-61) 10/27/19 07:40 Alkaline Phosphatase 63 U/L (45-117) 10/27/19 07:40 Total Protein 8.3 g/dl (6.4-8.2) H 10/27/19 07:40 Albumin 3.7 g/dl (3.4-5.0) 10/27/19 07:40 Urine Color Yellow 10/28/19 08:00 Urine Appearance Clear 10/28/19 08:00 Urine pH 6.5 (5.0-8.0) 10/28/19 08:00 Ur Specific [place] 1.019 (1.010-1.035) 10/28/19 08:00 Urine Protein Negative (NEGATIVE) 10/28/19 08:00 Urine Glucose (UA) Negative (NEGATIVE) 10/28/19 08:00 Urine Ketones Negative (NEGATIVE) 10/28/19 08:00 Urine Blood Negative (NEGATIVE) 10/28/19 08:00 Urine Nitrite Negative (NEGATIVE) 10/28/19 08:00 Urine Bilirubin Negative (NEGATIVE) 10/28/19 08:00 Urine Urobilinogen 0.2 mg/dL (0.2-1.0) 10/28/19 08:00 Ur Leukocyte Esterase Negative (NEGATIVE) 10/28/19 08:00 Syphilis Serology Non-reactive (NONREACTIVE) 10/27/19 07:40 COVID-19 ([facility]) Not detected (Not Detected) 10/26/19 17:15 Vital Signs Temperature 97.3 F L 10/30/19 10:27 Pulse Rate 74 10/30/19 10:27 Respiratory Rate 18 10/30/19 10:27 Blood Pressure 149/80 10/30/19 10:27 O2 Sat by Pulse Oximetry (%) 97 10/30/19 06:14 - Treatment Hospital Course: Detox Protocol Followed, Detoxed Safely, Responded well, Discharged Condition Good, Rehab Referral Accepted Patient has Accepted a Rehab Referral to: [facility] - Medication Discharge Medications: Ambulatory Orders Fish Oil 1,000 mg Capsule 1,000 mg PO DAILY 07/22/19 Amlodipine Besylate [Norvasc -] 10 mg PO DAILY #14 tab 08/14/19 Aspirin Coated [Ecotrin -] 81 mg PO DAILY #14 tab 08/14/19 Atenolol [Tenormin -] 25 mg PO BID #30 tablet 08/14/19 Atorvastatin Ca [Lipitor] 20 mg PO HS #14 tablet 08/14/19 Hydrochlorothiazide 25 mg PO DAILY 14 Days #14 tablet 08/14/19 metFORMIN HCL [Glucophage -] 500 mg PO BIDAC #30 tablet 08/14/19 Benztropine Mesylate [Cogentin -] 0.5 mg PO HS #30 tablet 09/05/19 Bupropion HCl [Wellbutrin Xl -] 300 mg PO DAILY #30 tab.sr.24h 09/05/19 Risperidone [Risperdal -] 2 mg PO HS #30 tablet 09/05/19 Mirtazapine [Remeron -] 15 mg PO HS 10/26/19 - Diagnosis (1) Alcohol dependence with uncomplicated withdrawal Current Visit: No Status: Chronic (2) Back pain Current Visit: No Status: Chronic Qualifiers: Back pain location: low back pain Chronicity: chronic Back pain laterality: midline Sciatica presence: without sciatica Qualified Code(s): M54.5 - Low back pain; G89.29 - Other chronic pain (3) Cannabis dependence, uncomplicated Current Visit: No Status: Chronic (4) Cocaine dependence Current Visit: No Status: Chronic Qualifiers: Substance use status: uncomplicated Qualified Code(s): F14.20 - Cocaine dependence, uncomplicated (5) DM2 (diabetes mellitus, type 2) Current Visit: No Status: Chronic Qualifiers: Diabetes mellitus 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 terminal 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 insulin use: without ferry terminal supervisor use Diabetes mellitus complication status: without complication Qualified Code(s): E11.9 - Type 2 diabetes mellitus without complications (6) Essential hypertension Current Visit: No Status: Chronic (7) Nicotine dependence Current Visit: No Status: Chronic Qualifiers: Nicotine product type: cigarettes Substance use status: uncomplicated Qualified Code(s): F17.210 - Nicotine dependence, cigarettes, uncomplicated (8) Schizoaffective disorder Current Visit: No Status: Chronic Qualifiers: Schizoaffective disorder type: depressive Qualified Code(s): F25.1 - Schizoaffective disorder, depressive type (9) Use of cane as ambulatory aid Current Visit: No Status: Chronic (10) Spinal stenosis, lumbosacral region Current Visit: No Status: Resolved (11) History of positive PPD Current Visit: No Status: Ruled-out
[2019-10-30] MEDS: ATENOLOL 25 MG TABLET (FP) PO SCH (10:31)
[2019-10-30] MEDS: NICOTINE POLACRILEX 4 MG GUM BUC PRN (10:32)
[2019-10-30] MEDS: amLODIPine BESYLATE 10 MG TABLET (FP) PO SCH (10:33)
[2019-10-30] MEDS: HYDROCHLOROTHIAZIDE 25 MG TABLET (FP) PO SCH (10:33)
[2019-10-30] MEDS: ASPIRIN COATED 81 MG TABLET.EC PO SCH (10:33)
[2019-10-30] MEDS: LIDOCAINE 5% TOPICAL PATCH TP SCH (10:33)
[2019-10-30] MEDS: PRENATAL VITAMINS W/ FOLIC ACID TABLET (FP) PO SCH (10:33)
[2019-10-30 10:38] VITALS: BP 149/80; PULSE 74; TEMP 97.3
[2019-10-31] MEDS ORDERED: chlordiazePOXIDE HCL 10 MG CAPSULE PO ONE (05:00)
== END 2019-10-30 11:36 | disposition home or self-care (01) | DRG 774 ==
LOC: YASAS 12:09 → Y3N 16:47
PROVIDERS: ADMIT Allergy & Immunology; ATTEND Allergy & Immunology
PROC: HZ2ZZZZ Detoxification Services for Substance Abuse Treatment (ICD-10-PCS; principal; 2019-10-26)
DX: F10.230 Alcohol dependence with withdrawal, uncomplicated (principal); F14.20 Cocaine dependence, uncomplicated; F12.20 Cannabis dependence, uncomplicated; F17.210 Nicotine dependence, cigarettes, uncomplicated; F25.1 Schizoaffective disorder, depressive type; F43.10 Post-traumatic stress disorder, unspecified; E78.5 Hyperlipidemia, unspecified; I10 Essential (primary) hypertension; E11.9 Type 2 diabetes mellitus without complications; Z79.84 Long term (current) use of oral hypoglycemic drugs; M48.061 Spinal stenosis, lumbar region without neurogenic claudication; M54.5 Low back pain; R76.11 Nonspecific reaction to tuberculin skin test without active tuberculosis; Z87.81 Personal history of (healed) traumatic fracture; Z96.641 Presence of right artificial hip joint; Z99.89 Dependence on other enabling machines and devices; Z88.1 Allergy status to other antibiotic agents; Z88.8 Allergy status to other drugs, medicaments and biological substances
CPT/HCPCS: 36415; 71046-TC-FY; 80053; 81003; 82962; 85027; 86780; U0003

== ENCOUNTER 2020-01-26 15:21 | Inpatient (IN) | payer OTHER ==
[2020-01-26] MEDS ORDERED: METHOCARBAMOL 500 MG TABLET PO PRN (17:38)
[2020-01-26] MEDS ORDERED: MAG HYDROX/AL HYDROX/SIMETH 30 ML UNIT-DOSE CUP PO PRN (17:38)
[2020-01-26] MEDS ORDERED: NICOTINE POLACRILEX 2 MG GUM BUC PRN (17:38)
[2020-01-26] MEDS ORDERED: IBUPROFEN 400 MG TABLET (FP) PO PRN (17:38)
[2020-01-26] MEDS ORDERED: BISMUTH SUBSALICYLATE 524 MG/30 ML UD PO PRN (17:38)
[2020-01-26] MEDS ORDERED: MAGNESIUM HYDROX 2400MG/30ML ORAL SUSPENSION 30 ML CUP PO PRN (17:38)
[2020-01-26] MEDS ORDERED: ONDANSETRON *ODT* 4 MG TABLET SL PRN (17:38)
[2020-01-26] MEDS ORDERED: MAGNESIUM CITRATE 300 ML BOTTLE PO PRN (17:38)
[2020-01-26] MEDS ORDERED: ACETAMINOPHEN 325 MG TABLET (FP) PO PRN ×2 (17:38)
[2020-01-26] MEDS ORDERED: MENTHOL/PHENOL 1 EACH UD MM PRN (17:38)
[2020-01-26 18:21] VITALS: BMI 28.0
[2020-01-26] MEDS: hydrOXYzine PAMOATE 25 MG CAPSULE (FP) PO SCH ×2 (19:40→22:30)
[2020-01-26] MEDS: LORazepam 1 MG TABLET PO PRN (19:41)
[2020-01-26] MEDS: LORazepam 2 MG TABLET PO SCH (22:26)
[2020-01-26] MEDS: MELATONIN 5 MG TABLETS PO SCH (22:26)
[2020-01-26] MEDS: THIAMINE HCL 100 MG TABLET (FP) PO SCH (22:26)
[2020-01-26] MEDS: NICOTINE POLACRILEX 4 MG GUM BUC PRN (22:28)
[2020-01-27] MEDS: LORazepam 2 MG TABLET PO SCH ×4 (05:47→22:19)
[2020-01-27] MEDS: hydrOXYzine PAMOATE 25 MG CAPSULE (FP) PO SCH ×3 (05:47→13:24)
[2020-01-27] MEDS: NICOTINE POLACRILEX 4 MG GUM BUC PRN ×6 (05:47→22:23)
[2020-01-27] MEDS: NICOTINE 7 MG/24 HOURS TOPICAL PATCH TD SCH (10:10)
[2020-01-27] MEDS: PRENATAL VITAMINS W/ FOLIC ACID TABLET (FP) PO SCH (10:10)
[2020-01-27] MEDS: HYDROCHLOROTHIAZIDE 25 MG TABLET (FP) PO SCH (10:38)
[2020-01-27] MEDS: ASPIRIN COATED 81 MG TABLET.EC PO SCH (10:38)
[2020-01-27] MEDS: amLODIPine BESYLATE 10 MG TABLET (FP) PO SCH (10:38)
[2020-01-27 10:58] LABS: HEMATOCRIT 43.2 % (35.4-49); HEMOGLOBIN 14.7 GM/dL (11.7-16.9); MCH 33.9 pg (25.7-33.7); MCHC 33.9 g/dl (32.0-35.9); MEAN CELL VOLUME 99.7 fl (80-96); MEAN PLT VOLUME 9.9 fl (7.5-11.1); PLATELET COUNT 205 K/MM3 (134-434); RBC 4.34 M/mm3 (4.00-5.60); RDW 13.9 % (11.9-15.9); WHITE BLOOD COUNT 2.8 K/mm3 (4.0-10.0)
[2020-01-27 11:04] LABS: POTASSIUM 3.9 mmol/L (3.5-5.1)
[2020-01-27 11:22] LABS: ALBUMIN 3.9 g/dl (3.4-5.0); BLOOD UREA NITROGEN 10.4 mg/dL (7-18); CALCIUM 9.7 mg/dL (8.5-10.1)
[2020-01-27 11:25] LABS: CREATININE 1.4 mg/dL (0.55-1.3)
[2020-01-27 11:27] LABS: BILIRUBIN,TOTAL 1.6 mg/dL (0.2-1); TOT PROT 8.2 g/dl (6.4-8.2)
[2020-01-27] MEDS: ATENOLOL 25 MG TABLET (FP) PO SCH ×2 (12:12→21:00)
[2020-01-27] MEDS: LORazepam 1 MG TABLET PO PRN ×2 (13:19→20:11)
[2020-01-27] MEDS ORDERED: hydrOXYzine PAMOATE 25 MG CAPSULE (FP) PO PRN (13:36)
[2020-01-27] MEDS: metFORMIN HCL 500 MG TABLET (FP) PO SCH (17:39)
[2020-01-27] MEDS: THIAMINE HCL 100 MG TABLET (FP) PO SCH (22:19)
[2020-01-27] MEDS: ATORVASTATIN CA 20 MG TABLET (FP) PO SCH (22:19)
[2020-01-27] MEDS: MELATONIN 5 MG TABLETS PO SCH (22:20)
[2020-01-28] MEDS: LORazepam 1 MG TABLET PO SCH ×4 (06:03→22:13)
[2020-01-28] MEDS: metFORMIN HCL 500 MG TABLET (FP) PO SCH ×2 (06:04→17:08)
[2020-01-28] MEDS: NICOTINE POLACRILEX 4 MG GUM BUC PRN ×6 (06:05→22:17)
[2020-01-28] MEDS ORDERED: risperiDONE 2 MG TABLET PO SCH (10:00)
[2020-01-28] MEDS: ATENOLOL 25 MG TABLET (FP) PO SCH ×2 (10:12→22:13)
[2020-01-28] MEDS: amLODIPine BESYLATE 10 MG TABLET (FP) PO SCH (10:12)
[2020-01-28] MEDS: HYDROCHLOROTHIAZIDE 25 MG TABLET (FP) PO SCH (10:12)
[2020-01-28] MEDS: ASPIRIN COATED 81 MG TABLET.EC PO SCH (10:12)
[2020-01-28] MEDS: PRENATAL VITAMINS W/ FOLIC ACID TABLET (FP) PO SCH (10:13)
[2020-01-28] MEDS: NICOTINE 7 MG/24 HOURS TOPICAL PATCH TD SCH (10:13)
[2020-01-28] MEDS: CITALOPRAM HYDROBROMIDE 20 MG TABLET PO SCH (10:14)
[2020-01-28] MEDS: risperiDONE 1 MG TABLET PO SCH ×2 (10:15→22:13)
[2020-01-28] MEDS: IBUPROFEN 400 MG TABLET (FP) PO PRN ×2 (10:15→22:16)
[2020-01-28 11:02] LABS: HEMATOCRIT 41.8 % (35.4-49); HEMOGLOBIN 14.2 GM/dL (11.7-16.9); MCH 33.6 pg (25.7-33.7); MCHC 33.9 g/dl (32.0-35.9); MEAN CELL VOLUME 98.9 fl (80-96); MEAN PLT VOLUME 9.6 fl (7.5-11.1); PLATELET COUNT 205 K/MM3 (134-434); RBC 4.23 M/mm3 (4.00-5.60); RDW 13.7 % (11.9-15.9); WHITE BLOOD COUNT 2.9 K/mm3 (4.0-10.0)
[2020-01-28 12:38] LABS: ALBUMIN 3.8 g/dl (3.4-5.0); BILIRUBIN,TOTAL 0.7 mg/dL (0.2-1); CALCIUM 9.9 mg/dL (8.5-10.1); CREATININE 1.3 mg/dL (0.55-1.3); POTASSIUM 3.9 mmol/L (3.5-5.1); TOT PROT 7.8 g/dl (6.4-8.2)
[2020-01-28] MEDS: LORazepam 1 MG TABLET PO PRN (13:28)
[2020-01-28] MEDS: ATORVASTATIN CA 20 MG TABLET (FP) PO SCH (22:13)
[2020-01-28] MEDS: THIAMINE HCL 100 MG TABLET (FP) PO SCH (22:13)
[2020-01-28] MEDS: MIRTAZAPINE 15 MG TABLET (FP) PO SCH (22:13)
[2020-01-28] MEDS: MELATONIN 5 MG TABLETS PO SCH (22:15)
[2020-01-29] MEDS ORDERED: LORazepam 0.5 MG TABLET PO PRN
[2020-01-29] MEDS: metFORMIN HCL 500 MG TABLET (FP) PO SCH ×2 (06:02→17:35)
[2020-01-29] MEDS: LORazepam 0.5 MG TABLET PO SCH ×4 (06:02→22:17)
[2020-01-29] MEDS: NICOTINE POLACRILEX 4 MG GUM BUC PRN ×5 (06:04→22:19)
[2020-01-29] MEDS: ATENOLOL 25 MG TABLET (FP) PO SCH ×2 (10:25→22:17)
[2020-01-29] MEDS: ASPIRIN COATED 81 MG TABLET.EC PO SCH (10:25)
[2020-01-29] MEDS: HYDROCHLOROTHIAZIDE 25 MG TABLET (FP) PO SCH (10:25)
[2020-01-29] MEDS: NICOTINE 7 MG/24 HOURS TOPICAL PATCH TD SCH (10:26)
[2020-01-29] MEDS: risperiDONE 2 MG TABLET PO SCH ×2 (10:26→22:17)
[2020-01-29] MEDS: amLODIPine BESYLATE 10 MG TABLET (FP) PO SCH (10:26)
[2020-01-29] MEDS: CITALOPRAM HYDROBROMIDE 20 MG TABLET PO SCH (10:26)
[2020-01-29] MEDS: PRENATAL VITAMINS W/ FOLIC ACID TABLET (FP) PO SCH (10:26)
[2020-01-29] MEDS: IBUPROFEN 400 MG TABLET (FP) PO PRN (10:28)
[2020-01-29] MEDS ORDERED: IBUPROFEN 400 MG TABLET (FP) PO PRN (11:03)
[2020-01-29] MEDS: ATORVASTATIN CA 20 MG TABLET (FP) PO SCH (22:17)
[2020-01-29] MEDS: THIAMINE HCL 100 MG TABLET (FP) PO SCH (22:17)
[2020-01-29] MEDS: MELATONIN 5 MG TABLETS PO SCH (22:17)
[2020-01-29] MEDS: MIRTAZAPINE 15 MG TABLET (FP) PO SCH (22:17)
[2020-01-30] MEDS ORDERED: LORazepam 0.5 MG TABLET PO ONE (05:00)
[2020-01-30] MEDS: NICOTINE POLACRILEX 4 MG GUM BUC PRN ×3 (05:40→12:37)
[2020-01-30] MEDS: metFORMIN HCL 500 MG TABLET (FP) PO SCH (07:40)
[2020-01-30] MEDS: HYDROCHLOROTHIAZIDE 25 MG TABLET (FP) PO SCH (10:20)
[2020-01-30] MEDS: CITALOPRAM HYDROBROMIDE 20 MG TABLET PO SCH (10:20)
[2020-01-30] MEDS: PRENATAL VITAMINS W/ FOLIC ACID TABLET (FP) PO SCH (10:21)
[2020-01-30] MEDS: risperiDONE 2 MG TABLET PO SCH (10:21)
[2020-01-30] MEDS: ASPIRIN COATED 81 MG TABLET.EC PO SCH (10:21)
[2020-01-30] MEDS: amLODIPine BESYLATE 10 MG TABLET (FP) PO SCH (10:21)
[2020-01-30] MEDS: ATENOLOL 25 MG TABLET (FP) PO SCH (10:22)
[2020-01-30] MEDS: NICOTINE 7 MG/24 HOURS TOPICAL PATCH TD SCH (10:23)
[2020-01-30 13:54] VITALS: BP 154/87; PULSE 74; TEMP 97.3
== END 2020-01-30 13:54 | disposition home or self-care (01) | DRG 774 ==
LOC: YASAS 15:21 → Y6N 18:58
PROVIDERS: ADMIT Allergy & Immunology; ATTEND Allergy & Immunology
PROC: HZ2ZZZZ Detoxification Services for Substance Abuse Treatment (ICD-10-PCS; principal; 2020-01-26)
DX: F10.230 Alcohol dependence with withdrawal, uncomplicated (principal); F14.20 Cocaine dependence, uncomplicated; F12.20 Cannabis dependence, uncomplicated; F17.213 Nicotine dependence, cigarettes, with withdrawal; F19.24 Other psychoactive substance dependence with psychoactive substance-induced mood disorder; F19.280 Other psychoactive substance dependence with psychoactive substance-induced anxiety disorder; F19.282 Other psychoactive substance dependence with psychoactive substance-induced sleep disorder; F25.1 Schizoaffective disorder, depressive type; F43.10 Post-traumatic stress disorder, unspecified; I10 Essential (primary) hypertension; E78.5 Hyperlipidemia, unspecified; E11.9 Type 2 diabetes mellitus without complications; I20.9 Angina pectoris, unspecified; M54.5 Low back pain; G89.29 Other chronic pain; R76.11 Nonspecific reaction to tuberculin skin test without active tuberculosis; R26.2 Difficulty in walking, not elsewhere classified; Z99.89 Dependence on other enabling machines and devices; Z79.84 Long term (current) use of oral hypoglycemic drugs; Z96.641 Presence of right artificial hip joint; Z88.1 Allergy status to other antibiotic agents; Z88.8 Allergy status to other drugs, medicaments and biological substances
CPT/HCPCS: 36415; 80053; 82947; 82962; 85027; 86780; 93005; 93010; C9803; J2794; U0003

== ENCOUNTER 2020-01-30 14:32 | Inpatient (IN) | payer OTHER ==
[2020-01-30] MEDS ORDERED: guaiFENesin 200 MG/10 ML 10 ML UNIT-DOSE CUPS PO PRN (15:06)
[2020-01-30] MEDS ORDERED: P-EPHED 60MG/TRIPROLIDI 2.5MG TABLET PO PRN (15:06)
[2020-01-30] MEDS ORDERED: MAGNESIUM CITRATE 300 ML BOTTLE PO PRN (15:06)
[2020-01-30] MEDS ORDERED: NICOTINE POLACRILEX 2 MG GUM BUC PRN (15:06)
[2020-01-30] MEDS ORDERED: IBUPROFEN 400 MG TABLET (FP) PO PRN (15:06)
[2020-01-30] MEDS ORDERED: MAGNESIUM HYDROX 2400MG/30ML ORAL SUSPENSION 30 ML CUP PO PRN (15:06)
[2020-01-30] MEDS ORDERED: LOPERAMIDE HCL 2 MG CAPSULE PO PRN (15:06)
[2020-01-30] MEDS ORDERED: MENTHOL/PHENOL 1 EACH UD MM PRN (15:06)
[2020-01-30] MEDS: metFORMIN HCL 500 MG TABLET (FP) PO SCH (16:30)
[2020-01-30] MEDS: NICOTINE POLACRILEX 2 MG GUM BUC PRN ×2 (17:29→21:25)
[2020-01-30] MEDS: MELATONIN 5 MG TABLETS PO SCH (21:24)
[2020-01-30] MEDS: ATORVASTATIN CA 20 MG TABLET (FP) PO SCH (21:24)
[2020-01-30] MEDS: hydrOXYzine PAMOATE 25 MG CAPSULE (FP) PO PRN (21:24)
[2020-01-30] MEDS: ATENOLOL 25 MG TABLET (FP) PO SCH (21:24)
[2020-01-30] MEDS: MIRTAZAPINE 15 MG TABLET (FP) PO SCH (21:24)
[2020-01-30] MEDS: risperiDONE 2 MG TABLET PO SCH (21:24)
[2020-01-30] MEDS: THIAMINE HCL 100 MG TABLET (FP) PO SCH (21:24)
[2020-01-31] MEDS: NICOTINE POLACRILEX 2 MG GUM BUC PRN ×5 (06:01→21:46)
[2020-01-31] MEDS: metFORMIN HCL 500 MG TABLET (FP) PO SCH ×2 (06:01→17:03)
[2020-01-31] MEDS: MAG HYDROX/AL HYDROX/SIMETH 30 ML UNIT-DOSE CUP PO PRN (07:03)
[2020-01-31] MEDS ORDERED: NICOTINE 7 MG/24 HOURS TOPICAL PATCH TD SCH (10:00)
[2020-01-31] MEDS: LORATADINE 10 MG TABLET PO SCH (10:01)
[2020-01-31] MEDS: PRENATAL VITAMINS W/ FOLIC ACID TABLET (FP) PO SCH (10:01)
[2020-01-31] MEDS: ATENOLOL 25 MG TABLET (FP) PO SCH ×2 (10:01→21:44)
[2020-01-31] MEDS: ASPIRIN COATED 81 MG TABLET.EC PO SCH (10:01)
[2020-01-31] MEDS: amLODIPine BESYLATE 10 MG TABLET (FP) PO SCH (10:01)
[2020-01-31] MEDS: HYDROCHLOROTHIAZIDE 25 MG TABLET (FP) PO SCH (10:01)
[2020-01-31] MEDS: LIDOCAINE 5% TOPICAL PATCH TP SCH (10:02)
[2020-01-31] MEDS: hydrOXYzine PAMOATE 25 MG CAPSULE (FP) PO PRN (17:04)
[2020-01-31] MEDS: THIAMINE HCL 100 MG TABLET (FP) PO SCH (21:44)
[2020-01-31] MEDS: risperiDONE 2 MG TABLET PO SCH (21:44)
[2020-01-31] MEDS: ATORVASTATIN CA 20 MG TABLET (FP) PO SCH (21:45)
[2020-01-31] MEDS: MELATONIN 5 MG TABLETS PO SCH (21:45)
[2020-01-31] MEDS: MIRTAZAPINE 15 MG TABLET (FP) PO SCH (21:45)
[2020-01-31] MEDS: LIDOCAINE PATCH REMOVAL MC SCH (21:45)
[2020-02-01] MEDS: metFORMIN HCL 500 MG TABLET (FP) PO SCH ×2 (06:23→16:50)
[2020-02-01] MEDS: NICOTINE POLACRILEX 2 MG GUM BUC PRN ×5 (06:24→21:09)
[2020-02-01] MEDS: HYDROCHLOROTHIAZIDE 25 MG TABLET (FP) PO SCH (10:11)
[2020-02-01] MEDS: amLODIPine BESYLATE 10 MG TABLET (FP) PO SCH (10:11)
[2020-02-01] MEDS: LORATADINE 10 MG TABLET PO SCH (10:11)
[2020-02-01] MEDS: ASPIRIN COATED 81 MG TABLET.EC PO SCH (10:11)
[2020-02-01] MEDS: PRENATAL VITAMINS W/ FOLIC ACID TABLET (FP) PO SCH (10:11)
[2020-02-01] MEDS: LIDOCAINE 5% TOPICAL PATCH TP SCH (10:12)
[2020-02-01] MEDS: ATENOLOL 25 MG TABLET (FP) PO SCH ×2 (10:13→21:07)
[2020-02-01] MEDS: hydrOXYzine PAMOATE 25 MG CAPSULE (FP) PO PRN ×3 (13:54→21:06)
[2020-02-01] MEDS: MIRTAZAPINE 15 MG TABLET (FP) PO SCH (21:06)
[2020-02-01] MEDS: ATORVASTATIN CA 20 MG TABLET (FP) PO SCH (21:06)
[2020-02-01] MEDS: risperiDONE 2 MG TABLET PO SCH (21:06)
[2020-02-01] MEDS: LIDOCAINE PATCH REMOVAL MC SCH (21:07)
[2020-02-01] MEDS: MELATONIN 5 MG TABLETS PO SCH (21:07)
[2020-02-01] MEDS: THIAMINE HCL 100 MG TABLET (FP) PO SCH (21:08)
[2020-02-01] MEDS: FISH OIL 1000 MG PO SCH ×2 (23:48→23:49)
[2020-02-02] MEDS: metFORMIN HCL 500 MG TABLET (FP) PO SCH ×2 (06:11→16:33)
[2020-02-02] MEDS: hydrOXYzine PAMOATE 25 MG CAPSULE (FP) PO PRN ×2 (06:12→16:33)
[2020-02-02] MEDS: NICOTINE POLACRILEX 2 MG GUM BUC PRN ×6 (06:12→22:02)
[2020-02-02] MEDS: CITALOPRAM HYDROBROMIDE 20 MG TABLET PO SCH (10:15)
[2020-02-02] MEDS: PRENATAL VITAMINS W/ FOLIC ACID TABLET (FP) PO SCH (10:15)
[2020-02-02] MEDS: amLODIPine BESYLATE 10 MG TABLET (FP) PO SCH (10:15)
[2020-02-02] MEDS: LORATADINE 10 MG TABLET PO SCH (10:15)
[2020-02-02] MEDS: risperiDONE 2 MG TABLET PO SCH ×2 (10:16→22:00)
[2020-02-02] MEDS: ATENOLOL 25 MG TABLET (FP) PO SCH ×2 (10:16→22:00)
[2020-02-02] MEDS: HYDROCHLOROTHIAZIDE 25 MG TABLET (FP) PO SCH (10:16)
[2020-02-02] MEDS: ASPIRIN COATED 81 MG TABLET.EC PO SCH (10:16)
[2020-02-02] MEDS: LIDOCAINE 5% TOPICAL PATCH TP SCH (10:18)
[2020-02-02] MEDS ORDERED: IBUPROFEN 600 MG TABLET (FP) PO PRN (11:43)
[2020-02-02] MEDS: IBUPROFEN 600 MG TABLET (FP) PO PRN (15:48)
[2020-02-02] MEDS: ACETAMINOPHEN 325 MG TABLET (FP) PO PRN ×2 (17:16→22:01)
[2020-02-02] MEDS: LIDOCAINE PATCH REMOVAL MC SCH (22:00)
[2020-02-02] MEDS: ATORVASTATIN CA 20 MG TABLET (FP) PO SCH (22:00)
[2020-02-02] MEDS: THIAMINE HCL 100 MG TABLET (FP) PO SCH (22:00)
[2020-02-02] MEDS: MELATONIN 5 MG TABLETS PO SCH (22:00)
[2020-02-02] MEDS ORDERED: IBUPROFEN 600 MG TABLET (FP) PO SCH (22:00)
[2020-02-02] MEDS: MIRTAZAPINE 15 MG TABLET (FP) PO SCH (22:00)
[2020-02-03] MEDS: metFORMIN HCL 500 MG TABLET (FP) PO SCH ×2 (06:05→16:53)
[2020-02-03] MEDS: NICOTINE POLACRILEX 2 MG GUM BUC PRN ×5 (06:05→21:06)
[2020-02-03] MEDS: MAG HYDROX/AL HYDROX/SIMETH 30 ML UNIT-DOSE CUP PO PRN (08:00)
[2020-02-03] MEDS: LORATADINE 10 MG TABLET PO SCH (09:53)
[2020-02-03] MEDS: HYDROCHLOROTHIAZIDE 25 MG TABLET (FP) PO SCH (09:53)
[2020-02-03] MEDS: CITALOPRAM HYDROBROMIDE 20 MG TABLET PO SCH (09:53)
[2020-02-03] MEDS: amLODIPine BESYLATE 10 MG TABLET (FP) PO SCH (09:53)
[2020-02-03] MEDS: PRENATAL VITAMINS W/ FOLIC ACID TABLET (FP) PO SCH (09:53)
[2020-02-03] MEDS: ASPIRIN COATED 81 MG TABLET.EC PO SCH (09:53)
[2020-02-03] MEDS: IBUPROFEN 600 MG TABLET (FP) PO PRN ×2 (09:55→17:56)
[2020-02-03] MEDS: LIDOCAINE 5% TOPICAL PATCH TP SCH (10:04)
[2020-02-03] MEDS: ATENOLOL 25 MG TABLET (FP) PO SCH ×2 (10:05→21:05)
[2020-02-03] MEDS: risperiDONE 2 MG TABLET PO SCH ×2 (10:05→21:05)
[2020-02-03] MEDS: hydrOXYzine PAMOATE 25 MG CAPSULE (FP) PO PRN ×2 (14:31→21:05)
[2020-02-03] MEDS: ACETAMINOPHEN 325 MG TABLET (FP) PO PRN (21:05)
[2020-02-03] MEDS: MIRTAZAPINE 15 MG TABLET (FP) PO SCH (21:05)
[2020-02-03] MEDS: ATORVASTATIN CA 20 MG TABLET (FP) PO SCH (21:05)
[2020-02-03] MEDS: MELATONIN 5 MG TABLETS PO SCH (21:05)
[2020-02-03] MEDS: THIAMINE HCL 100 MG TABLET (FP) PO SCH (21:05)
[2020-02-03] MEDS: LIDOCAINE PATCH REMOVAL MC SCH (21:32)
[2020-02-04] MEDS: metFORMIN HCL 500 MG TABLET (FP) PO SCH ×2 (06:01→16:52)
[2020-02-04] MEDS: NICOTINE POLACRILEX 2 MG GUM BUC PRN ×6 (06:05→21:34)
[2020-02-04] MEDS: ASPIRIN COATED 81 MG TABLET.EC PO SCH (09:44)
[2020-02-04] MEDS: LORATADINE 10 MG TABLET PO SCH (09:44)
[2020-02-04] MEDS: CITALOPRAM HYDROBROMIDE 20 MG TABLET PO SCH (09:44)
[2020-02-04] MEDS: HYDROCHLOROTHIAZIDE 25 MG TABLET (FP) PO SCH (09:45)
[2020-02-04] MEDS: LIDOCAINE 5% TOPICAL PATCH TP SCH (09:45)
[2020-02-04] MEDS: amLODIPine BESYLATE 10 MG TABLET (FP) PO SCH (09:45)
[2020-02-04] MEDS: PRENATAL VITAMINS W/ FOLIC ACID TABLET (FP) PO SCH (09:45)
[2020-02-04] MEDS: risperiDONE 2 MG TABLET PO SCH ×2 (09:46→21:32)
[2020-02-04] MEDS: ATENOLOL 25 MG TABLET (FP) PO SCH ×2 (09:46→21:32)
[2020-02-04] MEDS: IBUPROFEN 600 MG TABLET (FP) PO PRN ×2 (12:21→18:20)
[2020-02-04] MEDS: hydrOXYzine PAMOATE 25 MG CAPSULE (FP) PO PRN ×2 (18:18→21:32)
[2020-02-04] MEDS: THIAMINE HCL 100 MG TABLET (FP) PO SCH (21:32)
[2020-02-04] MEDS: LIDOCAINE PATCH REMOVAL MC SCH (21:33)
[2020-02-04] MEDS: MIRTAZAPINE 15 MG TABLET (FP) PO SCH (21:33)
[2020-02-04] MEDS: ATORVASTATIN CA 20 MG TABLET (FP) PO SCH (21:33)
[2020-02-04] MEDS: MELATONIN 5 MG TABLETS PO SCH (21:33)
[2020-02-05] MEDS: metFORMIN HCL 500 MG TABLET (FP) PO SCH ×2 (05:59→16:46)
[2020-02-05] MEDS: NICOTINE POLACRILEX 2 MG GUM BUC PRN ×5 (06:01→17:25)
[2020-02-05] MEDS: HYDROCHLOROTHIAZIDE 25 MG TABLET (FP) PO SCH (10:10)
[2020-02-05] MEDS: ATENOLOL 25 MG TABLET (FP) PO SCH ×2 (10:10→21:58)
[2020-02-05] MEDS: CITALOPRAM HYDROBROMIDE 20 MG TABLET PO SCH (10:10)
[2020-02-05] MEDS: LORATADINE 10 MG TABLET PO SCH (10:10)
[2020-02-05] MEDS: PRENATAL VITAMINS W/ FOLIC ACID TABLET (FP) PO SCH (10:10)
[2020-02-05] MEDS: ASPIRIN COATED 81 MG TABLET.EC PO SCH (10:10)
[2020-02-05] MEDS: risperiDONE 2 MG TABLET PO SCH ×2 (10:11→21:58)
[2020-02-05] MEDS: amLODIPine BESYLATE 10 MG TABLET (FP) PO SCH (10:11)
[2020-02-05] MEDS: LIDOCAINE 5% TOPICAL PATCH TP SCH (10:14)
[2020-02-05] MEDS: IBUPROFEN 600 MG TABLET (FP) PO PRN (10:16)
[2020-02-05] MEDS: hydrOXYzine PAMOATE 25 MG CAPSULE (FP) PO PRN (21:58)
[2020-02-05] MEDS: MIRTAZAPINE 15 MG TABLET (FP) PO SCH (21:58)
[2020-02-05] MEDS: THIAMINE HCL 100 MG TABLET (FP) PO SCH (21:58)
[2020-02-05] MEDS: MELATONIN 5 MG TABLETS PO SCH (21:58)
[2020-02-05] MEDS: ATORVASTATIN CA 20 MG TABLET (FP) PO SCH (21:58)
[2020-02-05] MEDS: LIDOCAINE PATCH REMOVAL MC SCH (21:59)
[2020-02-06] MEDS: metFORMIN HCL 500 MG TABLET (FP) PO SCH ×2 (06:08→17:06)
[2020-02-06] MEDS: NICOTINE POLACRILEX 2 MG GUM BUC PRN ×5 (06:09→21:12)
[2020-02-06] MEDS: PRENATAL VITAMINS W/ FOLIC ACID TABLET (FP) PO SCH (10:30)
[2020-02-06] MEDS: LORATADINE 10 MG TABLET PO SCH (10:30)
[2020-02-06] MEDS: amLODIPine BESYLATE 10 MG TABLET (FP) PO SCH (10:30)
[2020-02-06] MEDS: LIDOCAINE 5% TOPICAL PATCH TP SCH (10:30)
[2020-02-06] MEDS: CITALOPRAM HYDROBROMIDE 20 MG TABLET PO SCH (10:30)
[2020-02-06] MEDS: ASPIRIN COATED 81 MG TABLET.EC PO SCH (10:30)
[2020-02-06] MEDS: HYDROCHLOROTHIAZIDE 25 MG TABLET (FP) PO SCH (10:30)
[2020-02-06] MEDS: ATENOLOL 25 MG TABLET (FP) PO SCH ×2 (10:31→21:10)
[2020-02-06] MEDS: risperiDONE 2 MG TABLET PO SCH ×2 (10:31→22:54)
[2020-02-06] MEDS: hydrOXYzine PAMOATE 25 MG CAPSULE (FP) PO PRN ×2 (10:33→21:10)
[2020-02-06] MEDS: IBUPROFEN 600 MG TABLET (FP) PO PRN ×2 (10:33→21:11)
[2020-02-06] MEDS: LIDOCAINE PATCH REMOVAL MC SCH (21:10)
[2020-02-06] MEDS: MELATONIN 5 MG TABLETS PO SCH (21:10)
[2020-02-06] MEDS: ATORVASTATIN CA 20 MG TABLET (FP) PO SCH (21:10)
[2020-02-06] MEDS: THIAMINE HCL 100 MG TABLET (FP) PO SCH (21:10)
[2020-02-06] MEDS: MIRTAZAPINE 15 MG TABLET (FP) PO SCH (21:10)
[2020-02-06] MEDS: MAG HYDROX/AL HYDROX/SIMETH 30 ML UNIT-DOSE CUP PO PRN (21:12)
[2020-02-07] MEDS: NICOTINE POLACRILEX 2 MG GUM BUC PRN ×5 (06:27→19:02)
[2020-02-07] MEDS: metFORMIN HCL 500 MG TABLET (FP) PO SCH ×2 (06:27→17:21)
[2020-02-07] MEDS: HYDROCHLOROTHIAZIDE 25 MG TABLET (FP) PO SCH (10:21)
[2020-02-07] MEDS: amLODIPine BESYLATE 10 MG TABLET (FP) PO SCH (10:21)
[2020-02-07] MEDS: CITALOPRAM HYDROBROMIDE 20 MG TABLET PO SCH (10:21)
[2020-02-07] MEDS: ASPIRIN COATED 81 MG TABLET.EC PO SCH (10:21)
[2020-02-07] MEDS: IBUPROFEN 600 MG TABLET (FP) PO PRN ×2 (10:22→22:03)
[2020-02-07] MEDS: LIDOCAINE 5% TOPICAL PATCH TP SCH (10:22)
[2020-02-07] MEDS: LORATADINE 10 MG TABLET PO SCH (10:22)
[2020-02-07] MEDS: PRENATAL VITAMINS W/ FOLIC ACID TABLET (FP) PO SCH (10:22)
[2020-02-07] MEDS: ATENOLOL 25 MG TABLET (FP) PO SCH ×2 (10:23→22:04)
[2020-02-07] MEDS: risperiDONE 2 MG TABLET PO SCH ×2 (10:23→22:03)
[2020-02-07] MEDS: hydrOXYzine PAMOATE 25 MG CAPSULE (FP) PO PRN ×3 (10:25→22:01)
[2020-02-07] MEDS: THIAMINE HCL 100 MG TABLET (FP) PO SCH (22:01)
[2020-02-07] MEDS: MIRTAZAPINE 15 MG TABLET (FP) PO SCH (22:01)
[2020-02-07] MEDS: ATORVASTATIN CA 20 MG TABLET (FP) PO SCH (22:01)
[2020-02-07] MEDS: MELATONIN 5 MG TABLETS PO SCH (22:03)
[2020-02-07] MEDS: LIDOCAINE PATCH REMOVAL MC SCH (22:03)
[2020-02-08] MEDS: metFORMIN HCL 500 MG TABLET (FP) PO SCH ×2 (06:43→16:49)
[2020-02-08] MEDS: NICOTINE POLACRILEX 2 MG GUM BUC PRN ×5 (06:43→17:41)
[2020-02-08] MEDS: PRENATAL VITAMINS W/ FOLIC ACID TABLET (FP) PO SCH (10:51)
[2020-02-08] MEDS: LORATADINE 10 MG TABLET PO SCH (10:52)
[2020-02-08] MEDS: risperiDONE 2 MG TABLET PO SCH ×2 (10:52→21:18)
[2020-02-08] MEDS: CITALOPRAM HYDROBROMIDE 20 MG TABLET PO SCH (10:52)
[2020-02-08] MEDS: amLODIPine BESYLATE 10 MG TABLET (FP) PO SCH (10:52)
[2020-02-08] MEDS: HYDROCHLOROTHIAZIDE 25 MG TABLET (FP) PO SCH (10:52)
[2020-02-08] MEDS: ASPIRIN COATED 81 MG TABLET.EC PO SCH (10:52)
[2020-02-08] MEDS: ATENOLOL 25 MG TABLET (FP) PO SCH ×2 (10:53→22:22)
[2020-02-08] MEDS: LIDOCAINE 5% TOPICAL PATCH TP SCH (10:53)
[2020-02-08] MEDS: IBUPROFEN 600 MG TABLET (FP) PO PRN ×2 (10:55→21:18)
[2020-02-08] MEDS: hydrOXYzine PAMOATE 25 MG CAPSULE (FP) PO PRN ×2 (10:55→21:18)
[2020-02-08] MEDS: LIDOCAINE PATCH REMOVAL MC SCH (21:17)
[2020-02-08] MEDS: ATORVASTATIN CA 20 MG TABLET (FP) PO SCH (21:18)
[2020-02-08] MEDS: MIRTAZAPINE 15 MG TABLET (FP) PO SCH (21:18)
[2020-02-08] MEDS: THIAMINE HCL 100 MG TABLET (FP) PO SCH (21:18)
[2020-02-08] MEDS: MELATONIN 5 MG TABLETS PO SCH (21:18)
[2020-02-09 00:47] VITALS: TEMP 98.2
[2020-02-09] MEDS: metFORMIN HCL 500 MG TABLET (FP) PO SCH (06:24)
[2020-02-09 07:14] VITALS: BP 135/76; PULSE 62
[2020-02-09] MEDS: HYDROCHLOROTHIAZIDE 25 MG TABLET (FP) PO SCH (10:51)
[2020-02-09] MEDS: CITALOPRAM HYDROBROMIDE 20 MG TABLET PO SCH (10:51)
[2020-02-09] MEDS: LORATADINE 10 MG TABLET PO SCH (10:51)
[2020-02-09] MEDS: ASPIRIN COATED 81 MG TABLET.EC PO SCH (10:51)
[2020-02-09] MEDS: amLODIPine BESYLATE 10 MG TABLET (FP) PO SCH (10:51)
[2020-02-09] MEDS: LIDOCAINE 5% TOPICAL PATCH TP SCH (10:52)
[2020-02-09] MEDS: PRENATAL VITAMINS W/ FOLIC ACID TABLET (FP) PO SCH (10:52)
[2020-02-09] MEDS: ATENOLOL 25 MG TABLET (FP) PO SCH (10:54)
[2020-02-09] MEDS: NICOTINE POLACRILEX 2 MG GUM BUC PRN (10:55)
[2020-02-09] MEDS: risperiDONE 2 MG TABLET PO SCH (12:19)
== END 2020-02-09 11:20 | disposition home or self-care (01) | DRG 772 ==
LOC: YASAS 14:32 → Y5N 14:33
PROVIDERS: ADMIT Allergy & Immunology; ATTEND Allergy & Immunology
PROC: HZ42ZZZ Group Counseling for Substance Abuse Treatment, Cognitive-Behavioral (ICD-10-PCS; principal; 2020-01-30)
DX: F10.20 Alcohol dependence, uncomplicated (principal); F14.20 Cocaine dependence, uncomplicated; F17.210 Nicotine dependence, cigarettes, uncomplicated; F25.1 Schizoaffective disorder, depressive type; F19.24 Other psychoactive substance dependence with psychoactive substance-induced mood disorder; F19.280 Other psychoactive substance dependence with psychoactive substance-induced anxiety disorder; F19.282 Other psychoactive substance dependence with psychoactive substance-induced sleep disorder; I10 Essential (primary) hypertension; E78.5 Hyperlipidemia, unspecified; K21.9 Gastro-esophageal reflux disease without esophagitis; E11.9 Type 2 diabetes mellitus without complications; Z86.11 Personal history of tuberculosis; Z79.84 Long term (current) use of oral hypoglycemic drugs
CPT/HCPCS: 82962

== ENCOUNTER 2020-05-05 10:50 | Inpatient (IN) | payer OTHER ==
[2020-05-05 11:39] VITALS: BMI 30.4
[2020-05-05] MEDS ORDERED: P-EPHED 60MG/TRIPROLIDI 2.5MG TABLET PO PRN (12:14)
[2020-05-05] MEDS ORDERED: LOPERAMIDE HCL 2 MG CAPSULE PO PRN (12:14)
[2020-05-05] MEDS ORDERED: guaiFENesin 200 MG/10 ML 10 ML UNIT-DOSE CUPS PO PRN (12:14)
[2020-05-05] MEDS ORDERED: MAG HYDROX/AL HYDROX/SIMETH 30 ML UNIT-DOSE CUP PO PRN (12:14)
[2020-05-05] MEDS ORDERED: ACETAMINOPHEN 325 MG TABLET (FP) PO PRN (12:14)
[2020-05-05] MEDS ORDERED: IBUPROFEN 400 MG TABLET (FP) PO PRN (12:14)
[2020-05-05] MEDS ORDERED: MAGNESIUM CITRATE 300 ML BOTTLE PO PRN (12:14)
[2020-05-05] MEDS ORDERED: MAGNESIUM HYDROX 2400MG/30ML ORAL SUSPENSION 30 ML CUP PO PRN (12:14)
[2020-05-05] MEDS ORDERED: NICOTINE 7 MG/24 HOURS TOPICAL PATCH TD SCH (12:15)
[2020-05-05 14:40] LABS: HEMATOCRIT 39.3 % (35.4-49); HEMOGLOBIN 13.6 GM/dL (11.7-16.9); MCH 33.7 pg (25.7-33.7); MCHC 34.5 g/dl (32.0-35.9); MEAN CELL VOLUME 97.5 fl (80-96); MEAN PLT VOLUME 9.2 fl (7.5-11.1); PLATELET COUNT 175 K/MM3 (134-434); RBC 4.03 M/mm3 (4.00-5.60); RDW 13.4 % (11.9-15.9); WHITE BLOOD COUNT 2.9 K/mm3 (4.0-10.0)
[2020-05-05 14:41] LABS: POTASSIUM 4.1 mmol/L (3.5-5.1)
[2020-05-05 14:44] LABS: ALBUMIN 3.7 g/dl (3.4-5.0); CALCIUM 10.1 mg/dL (8.5-10.1)
[2020-05-05 14:45] LABS: BLOOD UREA NITROGEN 20.4 mg/dL (7-18)
[2020-05-05 14:48] LABS: CREATININE 1.2 mg/dL (0.55-1.3)
[2020-05-05 14:49] LABS: BILIRUBIN,TOTAL 0.6 mg/dL (0.2-1); TOT PROT 7.9 g/dl (6.4-8.2)
[2020-05-05] MEDS: ATENOLOL 25 MG TABLET (FP) PO SCH ×2 (14:59→21:09)
[2020-05-05] MEDS: PRENATAL VITAMINS W/ FOLIC ACID TABLET (FP) PO SCH (14:59)
[2020-05-05] MEDS: amLODIPine BESYLATE 10 MG TABLET (FP) PO SCH (14:59)
[2020-05-05] MEDS: ASPIRIN COATED 81 MG TABLET.EC PO SCH (14:59)
[2020-05-05] MEDS: NICOTINE 21 MG/24 HOURS TOPICAL PATCH TD SCH (15:00)
[2020-05-05] MEDS: hydrOXYzine PAMOATE 25 MG CAPSULE (FP) PO SCH ×3 (15:02→21:10)
[2020-05-05] MEDS: NICOTINE POLACRILEX 2 MG GUM BUC PRN ×3 (15:02→21:10)
[2020-05-05] MEDS: metFORMIN HCL 500 MG TABLET (FP) PO SCH (16:23)
[2020-05-05 17:50] LABS: PH,URINE 6.5 (5.0-8.0); URINE APPEARANCE CLEAR; URINE BILIRUBIN NEGATIVE (NEGATIVE); URINE COLOR YELLOW; URINE GLUCOSE (UA) NEGATIVE (NEGATIVE); URINE KETONE NEGATIVE (NEGATIVE); URINE LEUK ESTERASE NEGATIVE (NEGATIVE); URINE NITRITE NEGATIVE (NEGATIVE); URINE PROTEIN NEGATIVE (NEGATIVE); URINE UROBILINOGEN 0.2 mg/dL (0.2-1.0)
[2020-05-05] MEDS: THIAMINE HCL 100 MG TABLET (FP) PO SCH (21:09)
[2020-05-05] MEDS: MELATONIN 5 MG TABLETS PO SCH (21:09)
[2020-05-05] MEDS: AMMONIUM LACTATE 12% CREAM 140 GM TUBE TP SCH (21:10)
[2020-05-05] MEDS: ATORVASTATIN CA 20 MG TABLET (FP) PO SCH (21:10)
[2020-05-06] MEDS: hydrOXYzine PAMOATE 25 MG CAPSULE (FP) PO SCH ×5 (05:54→21:59)
[2020-05-06] MEDS: metFORMIN HCL 500 MG TABLET (FP) PO SCH ×2 (06:03→16:23)
[2020-05-06] MEDS: NICOTINE POLACRILEX 2 MG GUM BUC PRN (06:03)
[2020-05-06] MEDS: PRENATAL VITAMINS W/ FOLIC ACID TABLET (FP) PO SCH (09:46)
[2020-05-06] MEDS: ASPIRIN COATED 81 MG TABLET.EC PO SCH (09:47)
[2020-05-06] MEDS: HYDROCHLOROTHIAZIDE 25 MG TABLET (FP) PO SCH (09:47)
[2020-05-06] MEDS: amLODIPine BESYLATE 10 MG TABLET (FP) PO SCH (09:47)
[2020-05-06] MEDS: NICOTINE 21 MG/24 HOURS TOPICAL PATCH TD SCH (09:47)
[2020-05-06] MEDS: ATENOLOL 25 MG TABLET (FP) PO SCH ×2 (09:47→21:59)
[2020-05-06] MEDS: NICOTINE POLACRILEX 4 MG GUM BUC PRN ×5 (09:47→18:50)
[2020-05-06] MEDS ORDERED: ATENOLOL 25 MG TABLET (FP) PO SCH (10:00)
[2020-05-06] MEDS ORDERED: NAPROXEN 500 MG TABLET PO PRN (10:39)
[2020-05-06] MEDS: NAPROXEN 500 MG TABLET PO PRN (14:13)
[2020-05-06] MEDS: ATORVASTATIN CA 20 MG TABLET (FP) PO SCH (21:59)
[2020-05-06] MEDS: MELATONIN 5 MG TABLETS PO SCH (21:59)
[2020-05-06] MEDS: THIAMINE HCL 100 MG TABLET (FP) PO SCH (21:59)
[2020-05-06] MEDS: AMMONIUM LACTATE 12% CREAM 140 GM TUBE TP SCH (21:59)
[2020-05-07] MEDS: hydrOXYzine PAMOATE 25 MG CAPSULE (FP) PO SCH ×5 (06:14→21:35)
[2020-05-07] MEDS: metFORMIN HCL 500 MG TABLET (FP) PO SCH ×2 (06:14→16:33)
[2020-05-07] MEDS: NICOTINE POLACRILEX 4 MG GUM BUC PRN ×5 (06:14→21:36)
[2020-05-07] MEDS: amLODIPine BESYLATE 10 MG TABLET (FP) PO SCH (09:35)
[2020-05-07] MEDS: ASPIRIN COATED 81 MG TABLET.EC PO SCH (09:35)
[2020-05-07] MEDS: PRENATAL VITAMINS W/ FOLIC ACID TABLET (FP) PO SCH (09:35)
[2020-05-07] MEDS: ATENOLOL 25 MG TABLET (FP) PO SCH ×2 (09:35→21:36)
[2020-05-07] MEDS: HYDROCHLOROTHIAZIDE 25 MG TABLET (FP) PO SCH (09:35)
[2020-05-07] MEDS: NICOTINE 21 MG/24 HOURS TOPICAL PATCH TD SCH (09:36)
[2020-05-07] MEDS: NAPROXEN 500 MG TABLET PO PRN (10:45)
[2020-05-07] MEDS: ATORVASTATIN CA 20 MG TABLET (FP) PO SCH (21:35)
[2020-05-07] MEDS: AMMONIUM LACTATE 12% CREAM 140 GM TUBE TP SCH (21:35)
[2020-05-07] MEDS: MELATONIN 5 MG TABLETS PO SCH (21:35)
[2020-05-07] MEDS: THIAMINE HCL 100 MG TABLET (FP) PO SCH (21:36)
[2020-05-08] MEDS: hydrOXYzine PAMOATE 25 MG CAPSULE (FP) PO SCH ×5 (05:49→21:11)
[2020-05-08] MEDS: metFORMIN HCL 500 MG TABLET (FP) PO SCH ×2 (06:00→17:01)
[2020-05-08] MEDS: amLODIPine BESYLATE 10 MG TABLET (FP) PO SCH (09:47)
[2020-05-08] MEDS: ATENOLOL 25 MG TABLET (FP) PO SCH ×2 (09:47→21:11)
[2020-05-08] MEDS: HYDROCHLOROTHIAZIDE 25 MG TABLET (FP) PO SCH (09:47)
[2020-05-08] MEDS: ASPIRIN COATED 81 MG TABLET.EC PO SCH (09:47)
[2020-05-08] MEDS: PRENATAL VITAMINS W/ FOLIC ACID TABLET (FP) PO SCH (09:47)
[2020-05-08] MEDS: NICOTINE 21 MG/24 HOURS TOPICAL PATCH TD SCH (09:47)
[2020-05-08] MEDS: NICOTINE POLACRILEX 4 MG GUM BUC PRN ×5 (09:48→21:12)
[2020-05-08] MEDS: NAPROXEN 500 MG TABLET PO PRN (12:39)
[2020-05-08] MEDS: THIAMINE HCL 100 MG TABLET (FP) PO SCH (21:11)
[2020-05-08] MEDS: ATORVASTATIN CA 20 MG TABLET (FP) PO SCH (21:11)
[2020-05-08] MEDS: MELATONIN 5 MG TABLETS PO SCH (21:11)
[2020-05-08] MEDS: AMMONIUM LACTATE 12% CREAM 140 GM TUBE TP SCH (21:36)
[2020-05-09] MEDS: NICOTINE POLACRILEX 4 MG GUM BUC PRN ×5 (06:03→15:54)
[2020-05-09] MEDS: hydrOXYzine PAMOATE 25 MG CAPSULE (FP) PO SCH ×5 (06:03→21:36)
[2020-05-09] MEDS: metFORMIN HCL 500 MG TABLET (FP) PO SCH ×2 (06:03→16:26)
[2020-05-09] MEDS: PRENATAL VITAMINS W/ FOLIC ACID TABLET (FP) PO SCH (09:31)
[2020-05-09] MEDS: amLODIPine BESYLATE 10 MG TABLET (FP) PO SCH (09:31)
[2020-05-09] MEDS: NICOTINE 21 MG/24 HOURS TOPICAL PATCH TD SCH (09:31)
[2020-05-09] MEDS: NAPROXEN 500 MG TABLET PO PRN (09:31)
[2020-05-09] MEDS: HYDROCHLOROTHIAZIDE 25 MG TABLET (FP) PO SCH (09:31)
[2020-05-09] MEDS: ASPIRIN COATED 81 MG TABLET.EC PO SCH (09:31)
[2020-05-09] MEDS: ATENOLOL 25 MG TABLET (FP) PO SCH ×2 (09:32→21:35)
[2020-05-09] MEDS: CITALOPRAM HYDROBROMIDE 20 MG TABLET PO SCH (09:59)
[2020-05-09] MEDS: risperiDONE 2 MG TABLET PO SCH ×2 (09:59→21:33)
[2020-05-09] MEDS: BENZTROPINE MESYLATE 1 MG TABLET PO SCH ×2 (09:59→21:34)
[2020-05-09] MEDS: THIAMINE HCL 100 MG TABLET (FP) PO SCH (21:34)
[2020-05-09] MEDS: MELATONIN 5 MG TABLETS PO SCH (21:35)
[2020-05-09] MEDS: ATORVASTATIN CA 20 MG TABLET (FP) PO SCH (21:35)
[2020-05-09] MEDS: AMMONIUM LACTATE 12% CREAM 140 GM TUBE TP SCH (21:36)
[2020-05-09] MEDS ORDERED: MIRTAZAPINE 15 MG TABLET (FP) PO SCH (22:00)
[2020-05-10] MEDS: NICOTINE POLACRILEX 4 MG GUM BUC PRN ×2 (06:03→10:47)
[2020-05-10] MEDS: metFORMIN HCL 500 MG TABLET (FP) PO SCH (06:03)
[2020-05-10] MEDS: hydrOXYzine PAMOATE 25 MG CAPSULE (FP) PO SCH ×2 (06:03→10:45)
[2020-05-10 07:37] VITALS: TEMP 98
[2020-05-10] MEDS: HYDROCHLOROTHIAZIDE 25 MG TABLET (FP) PO SCH (10:42)
[2020-05-10] MEDS: ATENOLOL 25 MG TABLET (FP) PO SCH (10:43)
[2020-05-10] MEDS: BENZTROPINE MESYLATE 1 MG TABLET PO SCH (10:43)
[2020-05-10] MEDS: ASPIRIN COATED 81 MG TABLET.EC PO SCH (10:44)
[2020-05-10] MEDS: amLODIPine BESYLATE 10 MG TABLET (FP) PO SCH (10:44)
[2020-05-10] MEDS: NICOTINE 21 MG/24 HOURS TOPICAL PATCH TD SCH (10:45)
[2020-05-10] MEDS: risperiDONE 2 MG TABLET PO SCH (10:45)
[2020-05-10] MEDS: CITALOPRAM HYDROBROMIDE 20 MG TABLET PO SCH (10:45)
[2020-05-10] MEDS: PRENATAL VITAMINS W/ FOLIC ACID TABLET (FP) PO SCH (10:45)
[2020-05-10] MEDS: NAPROXEN 500 MG TABLET PO PRN (10:46)
[2020-05-10 10:55] VITALS: BP 151/78; PULSE 60
== END 2020-05-10 11:25 | disposition home or self-care (01) | DRG 772 ==
LOC: YASAS 10:50 → Y3W 12:14
PROVIDERS: ADMIT Allergy & Immunology; ATTEND Allergy & Immunology
PROC: HZ42ZZZ Group Counseling for Substance Abuse Treatment, Cognitive-Behavioral (ICD-10-PCS; principal; 2020-05-05)
DX: F10.20 Alcohol dependence, uncomplicated (principal); F14.20 Cocaine dependence, uncomplicated; F17.210 Nicotine dependence, cigarettes, uncomplicated; F25.1 Schizoaffective disorder, depressive type; U07.1 COVID-19; D64.9 Anemia, unspecified; I10 Essential (primary) hypertension; I20.9 Angina pectoris, unspecified; E78.5 Hyperlipidemia, unspecified; E11.9 Type 2 diabetes mellitus without complications; Z79.84 Long term (current) use of oral hypoglycemic drugs; G47.00 Insomnia, unspecified; K21.9 Gastro-esophageal reflux disease without esophagitis; M48.07 Spinal stenosis, lumbosacral region; R76.11 Nonspecific reaction to tuberculin skin test without active tuberculosis; Z96.641 Presence of right artificial hip joint; Z88.1 Allergy status to other antibiotic agents; Z88.8 Allergy status to other drugs, medicaments and biological substances; Z99.89 Dependence on other enabling machines and devices
CPT/HCPCS: 36415; 80053; 81003; 82962; 85027; 86780; C9803; U0003

== ENCOUNTER 2020-08-14 11:06 | Inpatient (IN) | payer OTHER ==
[2020-08-14 12:54] VITALS: BMI 27.6
[2020-08-14] MEDS ORDERED: ACETAMINOPHEN 325 MG TABLET (FP) PO PRN ×2 (21:07)
[2020-08-14] MEDS ORDERED: BISMUTH SUBSALICYLATE 524 MG/30 ML PO PRN (21:07)
[2020-08-14] MEDS ORDERED: ONDANSETRON *ODT* 4 MG TABLET SL PRN (21:07)
[2020-08-14] MEDS ORDERED: cloNIDine HCL 0.1 MG TABLET PO PRN (21:07)
[2020-08-14] MEDS ORDERED: METHADONE HCL 10 MG TABLET (FOR DETOX USE ONLY) PO ONE (21:07)
[2020-08-14] MEDS ORDERED: LORazepam 1 MG TABLET PO PRN (21:07)
[2020-08-14] MEDS ORDERED: MAG HYDROX/AL HYDROX/SIMETH 30 ML UNIT-DOSE CUP PO PRN (21:07)
[2020-08-14] MEDS ORDERED: IBUPROFEN 400 MG TABLET (FP) PO PRN (21:07)
[2020-08-14] MEDS ORDERED: MAGNESIUM HYDROX 2400MG/30ML ORAL SUSPENSION 30 ML CUP PO PRN (21:07)
[2020-08-14] MEDS ORDERED: MENTHOL/PHENOL 1 EACH UD MM PRN (21:07)
[2020-08-14] MEDS ORDERED: MAGNESIUM CITRATE 300 ML BOTTLE PO PRN (21:07)
[2020-08-14] MEDS: LORazepam 2 MG TABLET PO SCH (22:56)
[2020-08-14] MEDS: METHOCARBAMOL 500 MG TABLET PO PRN (22:58)
[2020-08-14] MEDS: MELATONIN 5 MG TABLETS PO SCH (22:58)
[2020-08-14] MEDS: THIAMINE HCL 100 MG TABLET (FP) PO SCH (22:59)
[2020-08-15] MEDS: LORazepam 2 MG TABLET PO SCH ×4 (06:23→22:14)
[2020-08-15] MEDS: NICOTINE POLACRILEX 2 MG GUM BUC PRN ×3 (06:26→22:22)
[2020-08-15] MEDS ORDERED: METHADONE HCL 10 MG TABLET (FOR DETOX USE ONLY) ONE (08:54)
[2020-08-15] MEDS ORDERED: METHADONE HCL 5 MG TABLET (FOR DETOX USE ONLY) ONE (08:55)
[2020-08-15] MEDS ORDERED: METHADONE (DETOX) 20 MG, METHADONE (DETOX) 5 MG PO ONE (10:00)
[2020-08-15] MEDS: PRENATAL VITAMINS W/ FOLIC ACID TABLET (FP) PO SCH (10:22)
[2020-08-15] MEDS: NICOTINE 21 MG/24 HOURS TOPICAL PATCH TD SCH (10:22)
[2020-08-15] MEDS: METHOCARBAMOL 500 MG TABLET PO PRN (18:33)
[2020-08-15] MEDS: MIRTAZAPINE 15 MG TABLET (FP) PO SCH (22:13)
[2020-08-15] MEDS: BENZTROPINE MESYLATE 1 MG TABLET PO SCH (22:13)
[2020-08-15] MEDS: MELATONIN 5 MG TABLETS PO SCH (22:14)
[2020-08-15] MEDS: THIAMINE HCL 100 MG TABLET (FP) PO SCH (22:14)
[2020-08-15] MEDS: risperiDONE 1 MG TABLET PO SCH (22:17)
[2020-08-16] MEDS: LORazepam 1 MG TABLET PO SCH ×4 (06:24→22:20)
[2020-08-16] MEDS ORDERED: CITALOPRAM HYDROBROMIDE 20 MG TABLET PO SCH (10:00)
[2020-08-16] MEDS ORDERED: METHADONE HCL 10 MG TABLET (FOR DETOX USE ONLY) PO ONE (10:00)
[2020-08-16] MEDS: BENZTROPINE MESYLATE 1 MG TABLET PO SCH ×2 (10:53→22:20)
[2020-08-16] MEDS: NICOTINE 21 MG/24 HOURS TOPICAL PATCH TD SCH (10:54)
[2020-08-16] MEDS: PRENATAL VITAMINS W/ FOLIC ACID TABLET (FP) PO SCH (10:54)
[2020-08-16] MEDS: risperiDONE 1 MG TABLET PO SCH ×2 (10:54→22:20)
[2020-08-16] MEDS: THIAMINE HCL 100 MG TABLET (FP) PO SCH (22:20)
[2020-08-16] MEDS: MIRTAZAPINE 15 MG TABLET (FP) PO SCH (22:20)
[2020-08-16] MEDS: MELATONIN 5 MG TABLETS PO SCH (22:20)
[2020-08-17] MEDS ORDERED: LORazepam 0.5 MG TABLET PO PRN
[2020-08-17] MEDS: LORazepam 0.5 MG TABLET PO SCH ×4 (06:25→22:06)
[2020-08-17] MEDS ORDERED: METHADONE HCL 10 MG TABLET (FOR DETOX USE ONLY) ONE (09:34)
[2020-08-17] MEDS ORDERED: METHADONE HCL 5 MG TABLET (FOR DETOX USE ONLY) ONE (09:35)
[2020-08-17] MEDS ORDERED: METHADONE (DETOX) 10 MG, METHADONE (DETOX) 5 MG PO ONE (10:00)
[2020-08-17] MEDS: NICOTINE 21 MG/24 HOURS TOPICAL PATCH TD SCH (12:55)
[2020-08-17] MEDS: PRENATAL VITAMINS W/ FOLIC ACID TABLET (FP) PO SCH (12:55)
[2020-08-17] MEDS: NICOTINE POLACRILEX 2 MG GUM BUC PRN ×3 (14:17→22:10)
[2020-08-17 14:22] LABS: HEMATOCRIT 36.3 % (35.4-49); HEMOGLOBIN 12.2 GM/dL (11.7-16.9); MCHC 33.5 g/dl (32.0-35.9); MEAN CELL VOLUME 98.3 fl (80-96); MEAN PLT VOLUME 8.6 fl (7.5-11.1); PLATELET COUNT 182 10^3/uL (134-434); RDW 14.7 % (11.9-15.9); WHITE BLOOD COUNT 3.1 K/mm3 (4.0-10.0)
[2020-08-17 14:31] LABS: BLOOD UREA NITROGEN 10.5 mg/dL (7-18)
[2020-08-17 14:33] LABS: ALBUMIN 3.3 g/dl (3.4-5.0); BILIRUBIN,TOTAL 0.9 mg/dL (0.2-1); TOT PROT 7.1 g/dl (6.4-8.2)
[2020-08-17 14:38] LABS: CREATININE 1.1 mg/dL (0.55-1.3)
[2020-08-17] MEDS ORDERED: LACTULOSE 20 GM/30 ML UDC (FOR ORAL USE ONLY) PO ONE (14:40)
[2020-08-17] MEDS: LACTULOSE 20 GM/30 ML UDC (FOR ORAL USE ONLY) PO SCH (22:06)
[2020-08-17] MEDS: MELATONIN 5 MG TABLETS PO SCH (22:06)
[2020-08-17] MEDS: THIAMINE HCL 100 MG TABLET (FP) PO SCH (22:06)
[2020-08-18] MEDS ORDERED: LORazepam 0.5 MG TABLET PO ONE (05:00)
[2020-08-18] MEDS: NICOTINE POLACRILEX 2 MG GUM BUC PRN ×5 (05:51→22:17)
[2020-08-18] MEDS: LACTULOSE 20 GM/30 ML UDC (FOR ORAL USE ONLY) PO SCH ×2 (09:53→22:15)
[2020-08-18] MEDS: NICOTINE 21 MG/24 HOURS TOPICAL PATCH TD SCH (09:55)
[2020-08-18] MEDS: PRENATAL VITAMINS W/ FOLIC ACID TABLET (FP) PO SCH (09:55)
[2020-08-18] MEDS ORDERED: METHADONE HCL 10 MG TABLET (FOR DETOX USE ONLY) PO ONE (10:00)
[2020-08-18] MEDS: MELATONIN 5 MG TABLETS PO SCH (22:15)
[2020-08-18] MEDS: THIAMINE HCL 100 MG TABLET (FP) PO SCH (22:15)
[2020-08-19] MEDS: LACTULOSE 20 GM/30 ML UDC (FOR ORAL USE ONLY) PO SCH (05:40)
[2020-08-19] MEDS: NICOTINE POLACRILEX 2 MG GUM BUC PRN ×3 (05:42→12:52)
[2020-08-19] MEDS ORDERED: METHADONE HCL 5 MG TABLET (FOR DETOX USE ONLY) PO ONE (06:00)
[2020-08-19 09:50] VITALS: BP 148/81; PULSE 69; TEMP 97.2
[2020-08-19] MEDS: PRENATAL VITAMINS W/ FOLIC ACID TABLET (FP) PO SCH (10:08)
[2020-08-19] MEDS: NICOTINE 21 MG/24 HOURS TOPICAL PATCH TD SCH (10:08)
== END 2020-08-19 13:13 | disposition other institution (70) | DRG 773 ==
LOC: YASAS 11:06 → Y3N 20:44
PROVIDERS: ADMIT Allergy & Immunology; ATTEND Allergy & Immunology
PROC: HZ2ZZZZ Detoxification Services for Substance Abuse Treatment (ICD-10-PCS; principal; 2020-08-14)
DX: F11.23 Opioid dependence with withdrawal (principal); F10.230 Alcohol dependence with withdrawal, uncomplicated; F14.20 Cocaine dependence, uncomplicated; F12.20 Cannabis dependence, uncomplicated; F17.210 Nicotine dependence, cigarettes, uncomplicated; F25.1 Schizoaffective disorder, depressive type; I20.9 Angina pectoris, unspecified; I10 Essential (primary) hypertension; E78.5 Hyperlipidemia, unspecified; E11.65 Type 2 diabetes mellitus with hyperglycemia; M54.41 Lumbago with sciatica, right side; G89.29 Other chronic pain; K21.9 Gastro-esophageal reflux disease without esophagitis; R26.2 Difficulty in walking, not elsewhere classified; Z99.89 Dependence on other enabling machines and devices; Z88.1 Allergy status to other antibiotic agents; Z88.8 Allergy status to other drugs, medicaments and biological substances; Z96.641 Presence of right artificial hip joint; Z86.11 Personal history of tuberculosis; Z56.0 Unemployment, unspecified; Z79.84 Long term (current) use of oral hypoglycemic drugs
CPT/HCPCS: 36415; 71046-TC-FY; 80053; 82140; 82962; 85027; 86780; 93005; 93010; C9803; J0735; J2794; Q0162; U0003; U0005